=== PATIENT | female | born 1975 | race African-American/Black ===

== ENCOUNTER 2023-09-01 19:03 | Emergency (ER) | payer OTHER, SELFPAY ==
[2023-09-01 19:15] VITALS: BP 107/66
[2023-09-01 21:04] LABS: Glucose - Point of Care 365 mg/dl (70-99)
--- NOTE | 2023-09-01 21:07 | ED.GENMED ---
History of Present Illness
General
Chief Complaint: Ear Problem
Source: patient
Exam Limitations: none
Time Seen by Provider: 09/01/23 20:43
Travel History
Have you had any contact with someone who has COVID-19?: No
Do you have any symptoms of coronavirus? Fever > 100 degrees, chills, cough, shortness of breath, sore throat, loss of taste or smell, muscle aches, or headache?: No
History of Present Illness
History of Present Illness:
47-year-old female insulin-dependent diabetic with history of CVA on Plavix presents with persistent right ear swelling and pain that started about 5 days ago. She has been on Augmentin for 4 days. No fever. She also notes chest congestion. She
occasionally notes drainage out of the right ear. No significant headache.
Past History
Past History
ED Past Medical History: CHF, HTN, Hypercholesterolemia, NIDDM and Other (Guillian-barre, blind right eye)
ED Past Surgical History: Cardiac (CABG in 1981)
Patient has exhibited threatening behavior?: No
Social History
Tobacco: Other
Alcohol: Occasional
Drug: Other
Personal: Other
Living: with family
Employment: Other
Family History
Family History: Other
Phy Exam
Physical Exam
Physical Exam:
General: Well-appearing female no acute respiratory distress
HEENT: Normocephalic outer ear quite swollen on the right side she is tender in the posterior auricular as well as the preauricular space. No trismus or drooling. Left ear within normal limits. No adenopathy.
Heart: Regular rate and rhythm no murmurs
Lungs: Clear to auscultation bilaterally no wheezing
Ext: NO cyanosis or edema
SKin: Erythema, induration noted of right outer ear and subtly over posterior ear.
Course
Orders/Labs/Results
Orders:
Orders
09/01/23 21:09
CT Head W/o Iv Contrast Urgent
Comment:
Reason For Exam: swelling to right ear
09/01/23 21:16
COVID-19 Antigen Urgent
Source: Nasal Swab
Complete Blood Count/With Diff Urgent
Influenza A+B Rapid Molecular Urgent
ROGER Source: Nasal Swab
Specimen Description:
09/01/23 21:19
CMP [Comprehensive Metabolic Panel] Urgent
09/01/23 23:01
Ciprofloxacin HCl [Cipro] 1 dropperett OTIC NOW STA
Ciprofloxacin HCl [Cipro] 500 mg PO NOW STA
Abnormal Lab Results
09/01/23 09/01/23 09/01/23
21:03 21:16 21:19
WBC 20.9 H 10^3/uL
(4.8-10.8)
RBC 3.42 L 10^6/uL
(4.20-5.40)
Hgb 8.4 L g/dL
(12.0-16.0)
Hct 25.8 L %
(37.0-47.0)
MCV 75.4 L fL
(81.0-99.0)
MCH 24.6 L pg
(27.0-31.0)
MCHC 32.6 L g/dL
(33.0-37.0)
RDW 15.9 H %
(11.5-14.5)
Plt Count 560 H 10^3/uL
(130-400)
Abs Immat Gran (auto) 0.4 H 10^3/uL
(0-0.05)
Absolute Neuts (auto) 17.2 H 10^3/uL
(1.4-6.5)
Absolute Monos (auto) 1.5 H 10^3/uL
(0.1-0.6)
Immature Gran % 1.8 H %
(0-0.5)
Neutrophils % 82.2 H %
(42.2-75.2)
Lymphocytes % 8.1 L %
(20.5-51.1)
Sodium 134 L mmol/L
(135-145)
BUN 43 H mg/dl
(7-17)
Creatinine 2.5 H mg/dL
(0.6-1.0)
Glucose 380 H mg/dl
(70-99)
Alkaline Phosphatase 215 H U/L
(38-126)
Albumin 3.1 L g/dl
(3.5-5.0)
POC Glucose 365 H mg/dl
(70-99)
09/01/23 21:16
09/01/23 21:19
Vital Signs
Initial and Last Documented VS:
Initial Vital Signs
Temp Pulse Resp BP Pulse Ox
98.1 F 98 19 107/66 100
09/01/23 19:15 09/01/23 19:15 09/01/23 19:15 09/01/23 19:15 09/01/23 19:15
Last Documented Vital Signs
Temp Pulse Resp BP Pulse Ox
98.1 F 98 19 107/66 100
09/01/23 19:15 09/01/23 19:15 09/01/23 19:15 09/01/23 19:15 09/01/23 19:15
MDM/Problems Addressed
Differential Diagnosis Includes:
Outer ear infection. Patient is insulin-dependent diabetic. Fingerstick blood sugar is 365 here. She is poorly controlled. She is not responding well to oral antibiotics. Question possible Pseudomonas involvement. Will check labs and CT.
*Critical Care Note
Total Time (30-74mins, 75-104mins- exclusive of procedures): Not Applicable
Update Note
Update Note:
Labs with significant findings including leukocytosis of 20.9 with a left shift. She has acute kidney injury with a creatinine of 2.5. Recommend patient stay in the hospital for multiple reasons cellulitis of right ear despite oral antibiotics in
the setting of poorly controlled diabetic. CT scan was ordered which showed soft tissue swelling and no fluid collection. Patient wishes not to stay in the hospital. Long discussion was had with patient. Return precautions were given. She
declined admission at this point.
ED Attending Note
-
Portions of this chart may have been created with voice recognition software.� Occasional wrong word or��sound alike� substitutions may have occurred due to the inherent limitations of voice recognition software.
Discharge Plan
Departure
Patient Disposition: Home (Routine Discharge)
Date of Disposition: 09/01/23
Time of Disposition: 23:31
Patient with high blood pressure during this ER visit?: No
Discharge Problem:
Cellulitis, Acute Otitis Externa
Instructions: Outer Ear Infection (DC)
Prescriptions:
New
ciprofloxacin HCl [Cipro] 500 mg tablet
500 mg PO BID Qty: 14 0RF
Cipro HC 0.2-1 % drops,suspension
3 drp otic (ear) BID 7 Days Qty: 10 0RF
No Action
insulin glargine [Lantus U-100 Insulin] 100 unit/mL Solution
18 - 20 unit SC HS
insulin lispro 100 unit/mL Insulin Pen
4 unit SC AC
omega 5-rqc-pru-fish oil 900-1,400 mg Capsule,Delayed Release(Dr/Ec)
1 cap PO DAILY
dapagliflozin propanediol [Farxiga] 10 mg Tablet
10 mg PO DAILY
furosemide [Lasix] 40 mg tablet
40 mg PO DAILY
atorvastatin 80 mg Tablet
80 mg PO QPM Qty: 30 0RF
clopidogrel 75 mg Tablet
75 mg PO DAILY Qty: 30 0RF
aspirin 81 mg Tablet,Delayed Release (Dr/Ec)
81 mg PO DAILY Qty: 30 0RF
Referrals:
Fitz Daniel DO [Family Provider] -
Activity Restrictions/Additional Instructions:
Use antibiotics as directed. Use drops twice a day. Please return here for increasing pain swelling fever vomiting or other concerning findings. Follow-up with family doctor otherwise
Interventions
Interventions:
*Risk Screen - Suicide Last Done: 09/01/23 19:15
*General Assessment Last Done: 09/01/23 19:15
*Neglect/Abuse Screening Last Done: 09/01/23 19:15
ED- Fall Risk Assessment Last Done: 09/01/23 20:15
*ED COVID-19 Vaccine History Last Done: 09/01/23 19:15
[2023-09-01 21:36] LABS: % Basophils 0.3 % (0-2); % Eosinophils 0.7 % (0-6); % Immature Granulocytes 1.8 % (0-0.5); % Lymphocytes 8.1 % (20.5-51.1); % Monocytes 6.9 % (1.7-9.3); % Neutrophils 82.2 % (42.2-75.2); Absolute Basophils 0.1 10^3/uL (0-0.2); Absolute Eosinophils 0.2 10^3/uL (0-0.7); Absolute Immature Granulocytes 0.4 10^3/uL (0-0.05); Absolute Lymphocytes 1.7 10^3/uL (1.2-3.4); Absolute Monocytes 1.5 10^3/uL (0.1-0.6); Absolute Neutrophils 17.2 10^3/uL (1.4-6.5); Hematocrit 25.8 % (37.0-47.0); Hemoglobin 8.4 g/dL (12.0-16.0); Mean Corp Hgb Conc. 32.6 g/dL (33.0-37.0); Mean Corpuscular Hgb 24.6 pg (27.0-31.0); Mean Corpuscular Volume 75.4 fL (81.0-99.0); Mean Platelet Volume 9.2 fL (7.4-10.4); Nucleated Red Blood Cells % 0.1 %; Platelet Count 560 10^3/uL (130-400); Red Blood Cell Count 3.42 10^6/uL (4.20-5.40); Red Cell Dist. Width 15.9 % (11.5-14.5); White Blood Cell Count 20.9 10^3/uL (4.8-10.8)
[2023-09-01 21:51] LABS: COVID-19 Antigen Negative (Negative)
[2023-09-01 21:54] LABS: ALT (SGPT) < 10 U/L (0-35); AST (SGOT) 14 U/L (14-36); Albumin 3.1 g/dl (3.5-5.0); Alkaline Phosphatase 215 U/L (38-126); Blood Urea Nitrogen 43 mg/dl (7-17); Carbon Dioxide 22 mmol/L (22-30); Chloride 101 mmol/L (98-107); Glucose 380 mg/dl (70-99); Potassium 4.8 mmol/L (3.5-5.1); Sodium 134 mmol/L (135-145); Total Bilirubin 0.9 mg/dl (0.2-1.3); Total Protein 7.4 g/dl (6.3-8.2); eGFR 23.29
[2023-09-01] MEDS: CIPRO 500 MG PO (23:09)
[2023-09-01] MEDS: CIPRO 1 DROPPERETT OTIC (23:10)
== END 2023-09-01 23:40 | disposition home or self-care (01) ==
LOC: EMR 19:03
PROVIDERS: Physician Assistant; EMERGENCY PHYSICIAN Emergency Medicine; FAMILY PHYSICIAN Internal Medicine
DX: H60.11 Cellulitis of right external ear (principal); H60.501 Unspecified acute noninfective otitis externa, right ear; E11.65 Type 2 diabetes mellitus with hyperglycemia; N17.9 Acute kidney failure, unspecified; Z86.73 Personal history of transient ischemic attack (TIA), and cerebral infarction without residual deficits
CPT/HCPCS: 99284; 70450; 80053; 82962; 85025; 87502; 87811

== ENCOUNTER 2023-12-06 03:31 | Inpatient (IN) | payer OTHER, SELFPAY ==
[2023-12-05 23:52] VITALS: BMI 28.2
[2023-12-05 23:54] VITALS: BP 156/59
[2023-12-06] VITALS (10 sets, daily range): BP systolic 124–146; BP diastolic 53–74; PULSE 100; O2SAT 99; BMI 29.8
--- NOTE | 2023-12-06 00:34 | ED.GENMED ---
History of Present Illness
General
Chief Complaint: Skin Problem
Time Seen by Provider: 12/06/23 00:18
Travel History
Have you had any contact with someone who has COVID-19?: No
Do you have any symptoms of coronavirus? Fever > 100 degrees, chills, cough, shortness of breath, sore throat, loss of taste or smell, muscle aches, or headache?: No
History of Present Illness
History of Present Illness:
48yoF hx DM, HTN, CHF presenting with right foot wound. Patient reports increased right foot pain and swelling for the past 2-3 days. Patient states she felt like she has had atheletes foot so she has been spraying Lotrimin to bilateral feet for the
past 2 weeks. Patient states while she was in the shower, she was scrubbing her foot with a loofah when wound opened up on her right 5th toe draining foul smelling blood and pus. Patient reports fever. Patient denies chills.
Past History
Past History
ED Past Medical History: CHF, HTN, Hypercholesterolemia, NIDDM and Other (Guillian-barre, blind right eye)
ED Past Surgical History: Cardiac (CABG in 1981)
Patient has exhibited threatening behavior?: No
Social History
Tobacco: Other
Alcohol: Occasional
Drug: Other
Personal: Other
Living: with family
Employment: Other
Family History
Family History: Other
Phy Exam
Physical Exam
Physical Exam:
General: Alert, no acute distress
Head: NCAT
Eyes: clear conjunctiva
Neck: supple
Cardiac: tachycardic, no murmur
Lungs: clear to auscultation bilaterally. No wheezes, rales, or rhonchi. Speaking full unlabored sentences. No respiratory distress.
Abdomen: soft, nondistended nontender. No rebound or guarding.
MSK: swelling, erythema, increased warmth to right distal foot greatest at 3-5 toes. Open wound in between 4/5 toes. No crepitus. Bilateral lower extremity swelling
Skin: warm, dry
Neuro: Alert and oriented x3. no focal deficits
Course
Orders/Labs/Results
Orders:
Orders
12/06/23 00:30
Toes 2 Views, Right [CR Toe(s) Min 2 Vw Right] Urgent
Comment:
Reason For Exam: pain swelling erythema discharge 4/5 toes
12/06/23 00:32
0.9% Sodium Chloride 500 ml [Nss] 500 ml IV BOLUS
12/06/23 00:51
CMP [Comprehensive Metabolic Panel] Urgent
Blood Culture Urgent
ROGER Source: Blood/Venous
Specimen Description:
12/06/23 00:52
C-Reactive Protein Urgent
CBC/With Diff [Complete Blood Count/With Diff] Urgent
Lactic Acid Urgent
Sed Rate [Erythrocyte Sed Rate] Urgent
12/06/23 01:33
Piperacillin/Tazo 4.5 Gram [Zosyn] 4.5 gram in 100 ml IV NOW
12/06/23 01:35
Vancomycin 1 Gram/200 ml [Vancocin] 1 gram in 200 ml IV ONCE
12/06/23 01:36
0.9% Sodium Chloride 1000 ml [Nss] 1,000 ml IV BOLUS
Abnormal Lab Results
12/06/23 12/06/23
00:51 00:52
WBC 24.2 H 10^3/uL
(4.8-10.8)
RBC 3.95 L 10^6/uL
(4.20-5.40)
Hgb 8.7 L g/dL
(12.0-16.0)
Hct 28.1 L %
(37.0-47.0)
MCV 71.1 L fL
(81.0-99.0)
MCH 22.0 L pg
(27.0-31.0)
MCHC 31.0 L g/dL
(33.0-37.0)
RDW 16.7 H %
(11.5-14.5)
Abs Immat Gran (auto) 0.2 H 10^3/uL
(0-0.05)
Absolute Neuts (auto) 21.7 H 10^3/uL
(1.4-6.5)
Absolute Lymphs (auto) 0.8 L 10^3/uL
(1.2-3.4)
Absolute Monos (auto) 1.4 H 10^3/uL
(0.1-0.6)
Immature Gran % 0.8 H %
(0-0.5)
Neutrophils % 89.6 H %
(42.2-75.2)
Lymphocytes % 3.3 L %
(20.5-51.1)
ESR 105 H mm/hour
(0-20)
Sodium 127 L mmol/L
(135-145)
Carbon Dioxide 18 L mmol/L
(22-30)
BUN 73 H mg/dl
(7-17)
Creatinine 2.5 H mg/dL
(0.6-1.0)
Glucose 344 H mg/dl
(70-99)
Alkaline Phosphatase 288 H U/L
(38-126)
C-Reactive Protein 223.70 H mg/L
(0.0-10.00)
12/06/23 00:52
12/06/23 00:51
Vital Signs
Initial and Last Documented VS:
Initial Vital Signs
Temp Pulse Resp BP Pulse Ox
99.1 F 117 20 156/59 100
12/05/23 23:54 12/05/23 23:54 12/05/23 23:54 12/05/23 23:54 12/05/23 23:54
Last Documented Vital Signs
Temp Pulse Resp BP Pulse Ox
99.1 F 101 16 139/61 100
12/06/23 01:58 12/06/23 01:58 12/06/23 01:58 12/06/23 01:58 12/06/23 01:58
MDM/Problems Addressed
MDM/Problems Addressed:
Patient presents to the Emergency Department with right foot wound
Number and Complexity of Problems Addressed at the Encounter
� Chronic conditions affecting care: DM, HTN
� Acute Exacerbation and/or Progression of Chronic Illness:
� Differential Diagnosis includes: cellulitis, osteomyelitis, DKA
Amount and/or Complexity of Data to be Reviewed and Analyzed
� I performed an independent evaluation of and my interpretation is:
EKG:
CT:
Xrays:
Laboratory Studies: leukocytosis with markedly elevated inflammatory markers. Hyperglycemia with glucose 344. Normal anion gap, not in DKA.
Other:
� Review of other/old records reveals:
� Clinical information was obtained by an independent historian:
� Prescriptions/Medications Considered but not given:
� Further testing considered but not performed:
Risk of Complications and/or Morbidity or Mortality of Patient Management
� Social Determinants of health affecting care:
� Discussion with other providers (PCP, Hospitalists, Consultants, etc):
� Escalation of care including admission/observation vs risk of discharge considered: 48yoF presenting with right foot wound. Patient states pain started 2-3 days ago. Patient noticed wound to right 4/5 toes starting tonight draining blood and pus.
Patient reports fevers. Patient states she has not been seen by podiatry since she moved here 1.5 years ago. Concern for diabetic foot wound, started vancomycin and zosyn. Discussed with hospitalist who accepts for admission
*Critical Care Note
Total Time (30-74mins, 75-104mins- exclusive of procedures): Not Applicable
ED Attending Note
-
Portions of this chart may have been created with voice recognition software.� Occasional wrong word or��sound alike� substitutions may have occurred due to the inherent limitations of voice recognition software.
Discharge Plan
Departure
Patient Disposition: Admit
Date of Disposition: 12/06/23
Time of Disposition: 02:23
Presentation/result/management discussed w/ accepting MD/DO: Hospitalist
Patient with high blood pressure during this ER visit?: Yes
Discharge Problem:
Diabetic foot infection
Prescriptions:
No Action
insulin glargine [Lantus U-100 Insulin] 100 unit/mL Solution
18 - 20 unit SC HS
insulin lispro 100 unit/mL Insulin Pen
4 unit SC AC
Rx Instructions:
pt reports sliding scale
omega 1-pye-xpw-fish oil 900-1,400 mg Capsule,Delayed Release(Dr/Ec)
1 cap PO DAILY
atorvastatin 80 mg Tablet
80 mg PO QPM Qty: 30 0RF
clopidogrel 75 mg Tablet
75 mg PO DAILY Qty: 30 0RF
aspirin 81 mg Tablet,Delayed Release (Dr/Ec)
81 mg PO DAILY Qty: 30 0RF
Referrals:
Fitz Daniel DO [Family Provider] -
Interventions
Interventions:
*Risk Screen - Suicide Last Done: 12/05/23 23:54
*General Assessment Last Done: 12/05/23 23:54
*Neglect/Abuse Screening Last Done: 12/05/23 23:54
*ED COVID-19 Vaccine History Last Done: 12/06/23 01:30
ED-Skin Assessment Last Done: 12/06/23 01:31
Discharge Date and Time
Print Language: IRISH
[2023-12-06 01:04] LABS: % Basophils 0.3 % (0-2); % Eosinophils 0.1 % (0-6); % Immature Granulocytes 0.8 % (0-0.5); % Lymphocytes 3.3 % (20.5-51.1); % Monocytes 5.9 % (1.7-9.3); % Neutrophils 89.6 % (42.2-75.2); Absolute Basophils 0.1 10^3/uL (0-0.2); Absolute Immature Granulocytes 0.2 10^3/uL (0-0.05); Absolute Lymphocytes 0.8 10^3/uL (1.2-3.4); Absolute Monocytes 1.4 10^3/uL (0.1-0.6); Absolute Neutrophils 21.7 10^3/uL (1.4-6.5); Hematocrit 28.1 % (37.0-47.0); Hemoglobin 8.7 g/dL (12.0-16.0); Mean Corpuscular Volume 71.1 fL (81.0-99.0); Mean Platelet Volume 10.1 fL (7.4-10.4); Nucleated Red Blood Cells % 0 %; Platelet Count 366 10^3/uL (130-400); Red Blood Cell Count 3.95 10^6/uL (4.20-5.40); Red Cell Dist. Width 16.7 % (11.5-14.5); White Blood Cell Count 24.2 10^3/uL (4.8-10.8)
[2023-12-06] MEDS: NSS 500 IV (01:10)
[2023-12-06 01:19] LABS: Lactic Acid 1.2 mmol/L (0.7-2.0)
[2023-12-06 01:20] LABS: ALT (SGPT) 23 U/L (0-35); AST (SGOT) 31 U/L (14-36); Albumin 3.6 g/dl (3.5-5.0); Alkaline Phosphatase 288 U/L (38-126); Blood Urea Nitrogen 73 mg/dl (7-17); Calcium 9.5 mg/dl (8.4-10.2); Carbon Dioxide 18 mmol/L (22-30); Chloride 98 mmol/L (98-107); Glucose 344 mg/dl (70-99); Sodium 127 mmol/L (135-145); Total Bilirubin 0.6 mg/dl (0.2-1.3); Total Protein 7.3 g/dl (6.3-8.2); eGFR 23.14
[2023-12-06 01:27] LABS: Erythrocyte Sed Rate 105 mm/hour (0-20)
[2023-12-06] MEDS: ZOSYN 100 IV (01:39)
[2023-12-06] MEDS: NSS 1000 IV ×2 (01:55→05:35)
[2023-12-06] MEDS: VANCOCIN 200 IV (03:01)
--- NOTE | 2023-12-06 03:16 | HPS.HSE ---
Family Physician
-
Family Physician: Fitz Daniel
Chief Complaint
-
R Foot Pain
History of Present Illness
Patient is a 48y F with PMH significant for DM-II, hypertension and prior CVAs who presents to ED complaining of R foot pain and malodorous discharge. Patient states that she developed burning / itching sensation in both feet about 2 weeks ago.
She felt this was athlete's foot and started to use Lotrimin spray without significant improvement. For the past 2 days, she noted increased pain, swelling and redness in the R foot in particular. She states that she has had some chills and felt
generally poor in that same time frame.
This evening, she was in the shower and scrubbing the R foot with a loofah when she noted the skin peeling from her small toe and appreciated malodorous discharge.
Patient presented to the ED for further evaluation.
Medical History
Past Medical History
Past Medical History: Reports Other
Additional Past Medical History:
ASCVD (CVA x 2)
Hypertension
DM-II with Retinopathy, Nephropathy and Neuropathy
Chronic HFpEF
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
Dysconjugate Gaze / Vision Impairment
Past Surgical History: Reports Other
Additional Past Surgical History:
Eye surgery
Open heart surgery as a child
Social History
Tobacco: Non-smoker
Alcohol: Former
Drug: None
Personal: Single
Living: With Family
Employment: Disabled
Family History
Family History: CAD, Diabetes and Hypertension
Allergies / Home Medications
Allergies reflects when Allergies were last updated in [employer]
Home Medications with original date entered in [employer]
Allergy/Medication List:
Allergies
Allergy/AdvReac Type Severity Reaction Status Date / Time
latex Allergy Hives Verified 09/01/23 19:15
soap Allergy Rash Verified 02/27/24 19:15
Home Medications
insulin glargine 100 unit/mL subcutaneous solution (Lantus U-100 Insulin) 18 - 20 unit SC HS Diabetes 04/06/23
insulin lispro 100 unit/mL subcutaneous pen 4 unit SC AC Diabetes 04/06/23
omega 0-kdn-rug-fish oil 900 mg-1,400 mg capsule,delayed release 1 cap PO DAILY Supplement 04/06/23
aspirin 81 mg tablet,delayed release 81 mg PO DAILY Blood Clot Prevention/Tx #30 tabs 05/04/23
atorvastatin 80 mg tablet 80 mg PO QPM #30 tabs 05/04/23
clopidogrel 75 mg tablet 75 mg PO DAILY #30 tabs 05/04/23
Review of Systems
-
History Source: Patient
A 12 point ROS was completed and negative except as noted: Yes
Constitutional: Reports Fatigue and Chills; Denies Fever
EENT: Denies Sore Throat
Respiratory: Denies Cough or Trouble Breathing
Cardiac: Denies Chest Pain or Palpitations
Abdomen/GI: Reports Anorexia; Denies Abdominal Pain, Nausea, Vomiting or Diarrhea
: Denies Dysuria, Frequency or Flank Pain
Musculoskeletal: Reports Joint Pain, Joint Swelling and Edema
Skin: Reports Itching and Other (Redness / skin peeling)
Neurological: Denies Dizzy or Headache
Psych: Denies Depression or Anxiety
Physical Exam
Vital Signs
Vital Signs
Temp Pulse Resp BP Pulse Ox
99.1 F 101 16 139/61 100
12/06/23 01:58 12/06/23 01:58 12/06/23 01:58 12/06/23 01:58 12/06/23 01:58
Physical Exam
General: Other (48y F in no acute distress.)
HEENT: Moist mucous membranes and Other (Dysconjugate gaze.)
Respiratory: Clear; No Wheezes, Rales or Rhonchi
Cardiac: S1/S2, Regular Rhythm and Murmur (II/ MANNY)
GI: Soft, Non Tender, Non Distended and Normal Bowel Sounds
Musculoskeletal: No Clubbing and Other (1-2+ pitting edema R > L foot. R foot with erythema and mild tenderness.)
Skin: Other (R 5th toe degloved with skin peeling from majority of the digit - focused over the medial aspect. Plantar surface with punctate wound at base of 5th MT without drainage or apparent foreign body.)
Neuro: AO x 3
Laboratory Results
-
12/06/23 00:52
12/06/23 00:51
Laboratory Results
Lactic Acid 1.2 mmol/L (0.7-2.0) 12/06/23 00:52
Total Bilirubin 0.6 mg/dl (0.2-1.3) 12/06/23 00:51
AST 31 U/L (14-36) 12/06/23 00:51
ALT 23 U/L (0-35) 12/06/23 00:51
Alkaline Phosphatase 288 U/L (38-126) H 12/06/23 00:51
Impression/Plan
-
A/P: Patient is a 48y F with PMH significant for HTN, DM-II, multiple prior CVAs and valvular heart disease who presents to ED complaining of pain, swelling and skin changes of the R foot / 5th toe.
Diabetic Foot Infection Right Foot
Sepsis secondary to the above
- Admit for further evaluation and treatment.
- Patient presents with leukocytosis and tachycardia with evident R foot infection.
- R 5th toe essentially degloved. X-ray without evident bony involvement - would check MR for further evaluation.
- Note significant elevations in ESR / CRP which may support osteomyelitis.
- IV abx with Vanco / Zosyn for now.
- Podiatry evaluation for further recommendations.
- Follow for clinical improvement.
DM-II
Mild / Pseudohyponatremia
- Stable. Continue basal insulin and SSI as needed.
- Update A1C.
- Corrected Na level is 131. Follow for improvement with glycemic control, IVFs, etc.
CKD III
- Stable. Renal function is at / near known baseline.
- Follow for changes.
ASCVD
- Multiple prior CVAs. LINQ recorder recommended; however, patient declined.
- Continue daily ASA. Will hold Plavix acutely in the event that surgical intervention is needed.
- Continue statin, BP control, etc.
- Monitor on telemetry for now.
- Follow for any new symptoms / complaints.
Chronic HFpEF
- Stable. Patient is not maintained on chronic diuretic regimen.
- Follow daily weights, I/Os, etc.
DVT Prophylaxis: Lovenox
Code Status: Full
[2023-12-06 04:37] LABS: Glucose - Point of Care 381 mg/dl (70-99)
[2023-12-06] MEDS: NOVOLOG FLEXPEN 7 UNITS SC (05:42)
[2023-12-06] MEDS: VANCOCIN HCL 500 MG 100 IV (05:56)
[2023-12-06 07:27] LABS: Glucose - Point of Care 300 mg/dl (70-99)
--- NOTE | 2023-12-06 07:45 | W.PN.HOSP.TC ---
Addendum entered and electronically signed by Jimmy Mckeon MD 12/06/23 12:36:
call from Dr. Casey.
requesting Vasc Surg evaluation. NPO after midnight
will decrease tonight's Lantus dose and start low dose D51/2 for the morning
Original Note:
Today's Communication/Plan
-
empiric Zosyn/Vanco
Podiatry consult
foot MRI
Assessment / Plan
Assessment / Plan
A/P: Patient is a 48y F with PMH significant for HTN, DM-II, multiple prior CVAs and valvular heart disease who presents to ED complaining of pain, swelling and skin changes of the R foot / 5th toe.
Diabetic Foot Infection Right Foot
with cellulitic changes up to mid palomo
Sepsis secondary to the above
- Patient presents with leukocytosis and tachycardia with evident R foot infection.
WBC 24.2k-->pending
- R 5th toe essentially degloved. X-ray without evident bony involvement - would check MR for further evaluation.
- Note significant elevations in ESR 105 / CRP 223.7 which may support osteomyelitis.
- IV abx with Vanco / Zosyn for now.
- Podiatry evaluation for further recommendations.
- Follow for clinical improvement. Consider ID consult pending clinical progression
DM-I
onset age 12
Mild / Pseudohyponatremia 127
- Stable. Continue basal insulin and SSI as needed.
- Update A1C pending.
- Corrected Na level is 131. Follow for improvement with glycemic control, IVFs, etc.
Will order diet, unlikely surgical intervention today
CKD III
- Stable. Renal function is at / near known baseline.
- Follow for changes.
BUN/Creat 73/2.5
ASCVD
- Multiple prior CVAs. LINQ recorder recommended; however, patient declined.
- Continue daily ASA. Will hold Plavix acutely in the event that surgical intervention is needed.
- Continue statin, BP control, etc.
- Monitor on telemetry for now.
- Follow for any new symptoms / complaints.
Chronic HFpEF
- Stable. Patient is not maintained on chronic diuretic regimen.
- Follow daily weights, I/Os, etc.
DVT Prophylaxis: Lovenox
Code Status: Full
Anticipated Discharge: > 48 hours
Subjective/Interval History
-
Date of Service: December 06, 2023
Pt very concerned about plans for toe/foot
Objective Data
-
Labs:
Laboratory Results
12/06/23 12/06/23 12/06/23
00:51 00:52 06:00
WBC 24.2 H Pending
Hgb 8.7 L Pending
Hct 28.1 L Pending
Plt Count 366 Pending
Sodium 127 L Pending
Potassium 5.0 Pending
Chloride 98 Pending
Carbon Dioxide 18 L Pending
BUN 73 H Pending
Creatinine 2.5 H Pending
Glucose 344 H Pending
Calcium 9.5 Pending
Total Bilirubin 0.6
AST 31
ALT 23
Alkaline Phosphatase 288 H
Vital Signs:
Vital Signs
Temp Pulse Resp BP Pulse Ox
98.8 F 97 20 146/74 100
12/06/23 05:02 12/06/23 07:29 12/06/23 07:29 12/06/23 07:29 12/06/23 07:29
Review of Systems
-
History Source: Patient and Coordinated Provider
Constitutional: Denies Fever
EENT: Reports No Symptoms Reported
Respiratory: Reports No Symptoms; Denies Cough or Trouble Breathing
Abdomen/GI: Reports No Symptoms
Genitourinary: Reports No Symptoms
Musculoskeletal: Reports Joint Pain (rt 5th toe pain)
Neuro: Reports Numbness (paresthesia in bilateral feet); Denies Dizzy or Weakness
Physical Exam
-
General: Well Developed, Well Nourished and No Apparent Distress
HEENT: Normocephalic, Atraumatic and Moist Mucous Membranes
Respiratory: Clear to Auscultation; Negative Wheezes, Rales or Rhonchi
Cardiac: Regular Rhythm and S1/S2
GI: Soft, Nontender and Nondistended
Skin: Warm (rt leg from ~mid palomo distally) and Rash (slightly hyperremic distal leg)
Neuro: Awake, Alert and Oriented
[2023-12-06] MEDS: NOVOLOG FLEXPEN-MODERATE RESISTANCE 7 UNITS SC (08:03)
[2023-12-06 08:18] LABS: Hematocrit 24.4 % (37.0-47.0); Mean Corp Hgb Conc. 32.8 g/dL (33.0-37.0); Mean Corpuscular Hgb 22.3 pg (27.0-31.0); Mean Corpuscular Volume 68.2 fL (81.0-99.0); Mean Platelet Volume 9.6 fL (7.4-10.4); Platelet Count 319 10^3/uL (130-400); Red Blood Cell Count 3.58 10^6/uL (4.20-5.40); Red Cell Dist. Width 16.8 % (11.5-14.5); White Blood Cell Count 19.7 10^3/uL (4.8-10.8)
[2023-12-06 08:38] LABS: Blood Urea Nitrogen 69 mg/dl (7-17); Calcium 8.6 mg/dl (8.4-10.2); Carbon Dioxide 18 mmol/L (22-30); Chloride 101 mmol/L (98-107); Estimated Creatinine Clearance 27 ml/min; Glucose 194 mg/dl (70-99); Potassium 4.4 mmol/L (3.5-5.1); Sodium 129 mmol/L (135-145)
--- NOTE | 2023-12-06 08:47 | PHA.VAN.IN ---
Assessment
- Assessment
Renal Function: Appears similar to baseline
AUC Dosing Plan
- Empiric Dosing
Initial / Loading Dose: 1500 mg - as a split loading dose ( ~21 mg/kg)
Plan
- Plan
Maintenance Regimen: dose by random level
Monitoring: random level AM 12/07/23
Pharmacokinetics Vancomycin I
- -
Patient Age: 48
Patient Sex: Female
Vancomycin Day #: 1
Indication: Diabetic Foot
Requesting Provider: Oscar
Pertinent Antimicrobial Allergies:
latex
Height / Weight:
Height 5 ft 3 in
Actual Weight 72.3 kg
Pertinent Past Medical History: DM w/ nephropathy, CKD III
- Vital Signs / Lab Results
Temp Pulse Resp BP Pulse Ox
98.8 F 97 20 146/74 100
12/06/23 05:02 12/06/23 07:29 12/06/23 07:29 12/06/23 07:29 12/06/23 07:29
Lab Results - Hematology
12/06/23 12/06/23
00:52 08:12
WBC 24.2 H 19.7 H
Lab Results - Chemistry
12/06/23 12/06/23
00:51 08:12
BUN 73 H 69 H
Creatinine 2.5 H 2.4 H
Estimated Creat Clear 27
Albumin 3.6
12/06/23
00:52
Lactic Acid 1.2
[2023-12-06 09:15] LABS: TSH Reflex To Free T4 3.76 uIU/ml (0.47-4.68)
[2023-12-06] MEDS: ASPIR LOW (ENTERIC COATED) 81 MG PO (09:41)
[2023-12-06] MEDS: ZOSYN 50 IV ×3 (09:44→21:52)
[2023-12-06 10:17] LABS: Glycohemoglobin (HgbA1c) 9.2 % (4.0-5.6)
[2023-12-06 12:02] LABS: Glucose - Point of Care 99 mg/dl (70-99)
[2023-12-06] MEDS: NOVOLOG FLEXPEN-MODERATE RESISTANCE SC ×2 (12:12→17:49)
--- NOTE | 2023-12-06 12:36 | W.CS.POD ---
Consult Summary - Podiatry
-
Patient is a 48y F with PMH significant for HTN, DM-II, multiple prior CVAs and valvular heart disease who presents to ED complaining of pain, swelling and skin changes of the R foot / 5th toe. She sates that she trimmed her callus on the bottom
her Rt foot under the 5th toe and developed some skin peeling and noticed redness, infection . she presented to the hosp . She is in no acute distress, no chest pain, no SOB, WBC count improved on IV abx,
Reviewed PMH, meds and allergies
Exam : Rt foot edematous, erythematous, Rt 5th toe with dusky discoloration, degloving skin, presence of foul odor. No signs of any crepitus felt in the Rt foot/5th toe, no signs of any deep abscess felt.
Xray no osteomyelitic changes.
WBC count improved from 24>19 .
A/P: Rt foot cellultis
Rt 5th toe gangrene
Diabetic small vessel disease
Plan ; Cont IV abx.
Ordered IVANIA'S and toe indices
Pending vascular surgery evaluation about possible healing potential after amputation
Discussed with patient about 5th toe gangrene possibly form diabetic small vessel disease . no guarantees given to save the toe, patient upset about the condition.
I have told her that we will get vascular surgery evaluation with vascular studies before the surgery, I have answered all her questions the best of my knowledge
Case d/w dr. Fontaine.
Podiatry for possible Rt 5th toe amputation tomorrow
Podiatry will follow
[2023-12-06] MEDS: LOVENOX 40 MG SC (17:22)
[2023-12-06] MEDS: TYLENOL 650 MG PO (17:22)
[2023-12-06] MEDS: LIPITOR 80 MG PO (17:22)
[2023-12-06 17:31] LABS: Glucose - Point of Care 143 mg/dl (70-99)
[2023-12-06] MEDS: NSS IV (17:48)
[2023-12-06 21:35] LABS: Glucose - Point of Care 187 mg/dl (70-99)
[2023-12-06] MEDS: LANTUS 0.100000000000000006 UNITS SC (22:34)
[2023-12-07] VITALS (13 sets, daily range): BP systolic 111–158; BP diastolic 50–62
[2023-12-07] MEDS: D5/0.45%NACL 1000 IV (02:12)
[2023-12-07] MEDS: ZOSYN 50 IV ×2 (02:48→08:40)
[2023-12-07 05:52] LABS: Glucose - Point of Care 198 mg/dl (70-99)
[2023-12-07] MEDS: NOVOLOG FLEXPEN-MODERATE RESISTANCE SC (06:00)
--- NOTE | 2023-12-07 06:36 | PTCARENOTE ---
Pt aaox3 able to make her needs known.Pt angry and irrritated with care at times. Pt refused IV fluids at first when NPO later agreeable to it. Pt oob with 1 person assist to BR was bladder scanned as needed. Pt also states she doesn't drink much
fluids. Pt was encouraged to drink more PO & was provided with PO liquids as pt was refusing IVF. INVESTIGATOR WELFARE electronic prepress technician made aware of it. Pt was encouarged to void this morning again,bladder scan of 239 at 6am.GEOGRAPHICAL HISTORIAN notified. Pt asking for lasix this morning
and it was not noted on pt home list, pt states she hasn't taken it for week and a half.Pt non complaint with care at times. GEOGRAPHICAL HISTORIAN made aware of all pt complaints & pt aware of am blood work to be done.Plan of care continued.Pt npo from [place]. pt made
aware of jewelry to be taken off for MRI.Pt wants to wait till morning for some of it .
[2023-12-07 07:46] LABS: % Basophils 0.4 % (0-2); % Eosinophils 0.7 % (0-6); % Immature Granulocytes 0.6 % (0-0.5); % Lymphocytes 7.1 % (20.5-51.1); % Monocytes 7.9 % (1.7-9.3); % Neutrophils 83.3 % (42.2-75.2); Absolute Basophils 0.1 10^3/uL (0-0.2); Absolute Eosinophils 0.1 10^3/uL (0-0.7); Absolute Immature Granulocytes 0.1 10^3/uL (0-0.05); Absolute Lymphocytes 1.4 10^3/uL (1.2-3.4); Absolute Monocytes 1.5 10^3/uL (0.1-0.6); Absolute Neutrophils 15.9 10^3/uL (1.4-6.5); Hematocrit 23.2 % (37.0-47.0); Hemoglobin 7.3 g/dL (12.0-16.0); Mean Corp Hgb Conc. 31.5 g/dL (33.0-37.0); Mean Corpuscular Hgb 22.1 pg (27.0-31.0); Mean Corpuscular Volume 70.1 fL (81.0-99.0); Nucleated Red Blood Cells % 0.1 %; Platelet Count 315 10^3/uL (130-400); Red Blood Cell Count 3.31 10^6/uL (4.20-5.40); Red Cell Dist. Width 16.8 % (11.5-14.5); White Blood Cell Count 19.1 10^3/uL (4.8-10.8)
--- NOTE | 2023-12-07 08:12 | CON.VAS ---
Addendum entered and electronically signed by Memo Whitmore III, MD 12/07/23 13:50:
This patient was seen and examined with NILDA Albright. I agree with the history and physical exam as well as the assessment and plan. I have the following additions:
48-year-old female with multiple medical problems. Poor medical compliance.
Presents with right fifth toe gangrene.
Associated infection
Nonpalpable pedal pulses on the right
I personally reviewed her vascular studies. Her IVANIA on the right is within normal limits however the arterial duplex does demonstrate calcification throughout. TBI mildly reduced at 0.6. Arterial duplex examination reveals elevated velocities in
the proximal superficial femoral artery consistent with stenosis.
She has chronic kidney disease and is in the midst of acute kidney injury. Creatinine today 3.0.
She would benefit from a right lower extremity arteriogram and possible endovascular intervention. Will hold off for now given acute kidney injury on a background of CKD. Will consult with nephrology regarding timing of arteriogram and
intervention, ideally on this admission and perhaps later this week. Podiatry following for her toe infection.
Signed:
Memo Whitmore III, MD
[facility] Vascular Surgery
[phone] ([id number])
Original Note:
Consultation
Consultation Request
Performing Provider: Myranda
Reason for Consultation: Right fifth toe gangrene
Medical History
-
Chief Complaint: Right fifth toe discoloration
History of Present Illness:
48-year-old female with past medical history diabetes type 2, CAD(CABG 1981), chronic kidney disease, CVA x2, hypertension, retinopathy, CHF admitted through the emergency room yesterday for right fifth toe gangrene workup. Patient states the right
fifth toe has been discolored for close to a week. She states the other day she was in the shower and scrubbed with a loofah when she noticed the skin peeling and a foul odor. She denies prior wound healing issues. She states her diabetes has
been very well-controlled, with all blood sugars under 200. She does not see a virtual classroom manager outpatient but is aware that she has kidney disease. Vascular consult for right fifth toe gangrene/PAD evaluation. Patient seen at bedside this a.m. with
Dr. Whitmore.
Right fifth toe is black with peeling skin on the bottom of the foot. It is also draining from an opening at the toe base on the bottom of the foot, malodorous. Denies pain. Bilateral legs from knees to toes with +2 pitting edema. Patient denies
having edema at baseline. Patient seems noncompliant and a bit unaware of current state of health. A1c 9.2. Creatinine 2.4 yesterday 3.0 today. States she is unsure if she has been urinating.
Arterial ultrasounds pending
N.p.o. for toe amputation today with podiatry
Past Medical History
Past Medical History: CAD, CHF, CVA, HTN, IDDM, Renal Failure and Other (Guillian Song� syndrome, vision impairment)
Past Surgical History: Cardiac (CABG 1981) and Other (Eye surgery)
Social History
Tobacco: Non-Smoker
Alcohol: Former
Drug: None
Personal: Single
Living: With Family
Employment: Disabled
Family History
Family History: CAD, Diabetes and Hypertension
Allergies / Home Medications
Allergy/AdvReac Type Severity Reaction Status Date / Time
latex Allergy Hives Verified 09/01/23 19:15
soap Allergy Rash Verified 09/01/23 19:15
�Medication �Instructions �Recorded �Confirmed �Type
insulin glargine 100 unit/mL 18 - 20 unit SC HS Diabetes 04/06/23 12/06/23 History
subcutaneous solution (Lantus
U-100 Insulin)
insulin lispro 100 unit/mL 4 unit SC AC Diabetes 04/06/23 12/06/23 History
subcutaneous pen
omega 9-ymc-eim-fish oil 900 1 cap PO DAILY Supplement 04/06/23 12/06/23 History
mg-1,400 mg capsule,delayed release
aspirin 81 mg tablet,delayed 81 mg PO DAILY Blood Clot 05/04/23 12/06/23 Rx
release Prevention/Tx #30 tabs
atorvastatin 80 mg tablet 80 mg PO QPM #30 tabs 05/04/23 12/06/23 Rx
Review of Systems
-
History Source: Patient
All other systems: Negative unless noted
Constitutional: Reports No Symptoms
EENT: Reports No Symptoms
Respiratory: Reports No Symptoms
Cardiac: Reports No Symptoms
Vascular: Denies Leg Pain / Claudication
Abdomen/GI: Reports No Symptoms
: Reports No Symptoms
Musculoskeletal: Reports Edema
Skin: Reports Other (Right fifth toe discoloration)
Neurological: Reports No Symptoms
Endocrine: Reports No Symptoms
Physical Exam
Vital Signs
Temp Pulse Resp BP Pulse Ox
98.8 F 96 16 134/61 99
12/07/23 07:10 12/07/23 07:10 12/07/23 07:10 12/07/23 07:10 12/07/23 07:10
Lab Results
12/07/23 07:29
Physical Exam
General: No Apparent Distress
HEENT: Normocephalic and Atraumatic
Respiratory: Non Labored Respirations
Cardiac: Negative JVD
GI: Soft and Non Tender
Musculoskeletal: No Clubbing and Edema (+2 pitting edema knees to toes bilaterally)
Skin: Warm, Dry and Other (Right fifth toe gangrene, malodorous drainage, skin peeling)
Neuro: Awake, Alert and Oriented
Psych: Calm
Pulses: Bilateral Dorsalis Pedis: Doppler (Nonpalpable) and Bilateral Posterior Tibial: Doppler (Nonpalpable)
Assessment / Plan
-
48-year-old female with right fifth toe gangrene
Plan:
-Arterial ultrasounds pending, likely angiogram tomorrow
-Toe amputation per podiatry
-Nephrology consult for rising creatinine
-DM management consult
-Local wound care
-Will follow-up with plan after scan is complete
Data Reviewed
-
Labs: Labs Reviewed by me
[2023-12-07 08:23] LABS: Blood Urea Nitrogen 83 mg/dl (7-17); Calcium 8.7 mg/dl (8.4-10.2); Carbon Dioxide 12 mmol/L (22-30); Chloride 102 mmol/L (98-107); Estimated Creatinine Clearance 23 ml/min; Glucose 193 mg/dl (70-99); Potassium 4.9 mmol/L (3.5-5.1); Sodium 127 mmol/L (135-145); eGFR 18.59
[2023-12-07] MEDS: ASPIR LOW (ENTERIC COATED) 81 MG PO (08:40)
--- NOTE | 2023-12-07 09:02 | W.PN.HOSP.TC ---
Today's Communication/Plan
-
Surgery with podiatry today, appreciate cardiology and podiatry
MARYLOU on CKD -- consulted ID and Nephrology, recommendations appreciated
Continue antibiotics
Continue bicarb
Assessment / Plan
Assessment / Plan
Physical Exam
General: Well Developed, Well Nourished and No Apparent Distress
HEENT: Normocephalic, Atraumatic and Moist Mucous Membranes
Respiratory: Clear to Auscultation; Negative Wheezes, Rales or Rhonchi
Cardiac: Regular Rhythm and S1/S2
GI: Soft, Nontender and Nondistended
Skin: Warm (rt leg from ~mid palomo distally) and Rash (slightly hyperremic distal leg)
Neuro: Awake, Alert and Oriented

Assessment/Plan
Patient is a 48y F with PMH significant for HTN, DM-II, multiple prior CVAs and valvular heart disease who presents to ED complaining of pain, swelling and skin changes of the R foot / 5th toe.
Diabetic Foot Infection Right Foot
with cellulitic changes up to mid palomo
Sepsis secondary to the above
- Patient presents with leukocytosis and tachycardia with evident R foot infection.
- R 5th toe essentially degloved. X-ray without evident bony involvement - would check MR for further evaluation.
- Note significant elevations in ESR 105 / CRP 223.7 which may support osteomyelitis.
- IV Zosyn stopped. ID consulted, recommendations appreciated
- Meropenem started. Continue Vancomycin.
- Podiatry evaluation for further recommendations.
- Follow for clinical improvement. Consider ID consult pending clinical progression
- Possible angiogram tomorrow with vascular surgery
- Podiatry to take patient for surgery today
DM-I
onset age 12
Mild / Pseudohyponatremia 127
- Diabetes CONTRACTS ANALYST consulted, recommendations appreciated
- Continue premeal and Long-acting Insulin as ordered
- Continue accuchecks
MARYLOU on CKD III
Anuria
metabolic Acidosis
- Consulted Nephrology on 12/07/23 given worsening renal function, along with acidosis and hyponatremia
- Bicarb ordered
- Avoid nephrotoxins, dose antibiotics renally
ASCVD
- Multiple prior CVAs. LINQ recorder recommended; however, patient declined.
- Continue daily ASA. Will hold Plavix acutely in the event that surgical intervention is needed.
- Continue statin, BP control, etc.
- Monitor on telemetry for now.
- Follow for any new symptoms / complaints.
Aortic Stenosis
Mitral Stenosis
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
Chronic HFpEF
Pulmonary Hypertension
- Stable. Patient is not maintained on chronic diuretic regimen but takes Lasix as needed.
- Follow daily weights, I/Os, etc.
DVT Prophylaxis: Lovenox
Code Status: Full
Anticipated Discharge: > 48 hours
Subjective/Interval History
-
Date of Service: December 07, 2023
Patient was seen and examined. She was going for her renal ultrasound when she was seen. She denied any new significant symptoms when she was seen.
Objective Data
-
Labs:
Laboratory Results
12/07/23
07:29
WBC 19.1 H
Hgb 7.3 L
Hct 23.2 L
Plt Count 315
Sodium 127 L
Potassium 4.9
Chloride 102
Carbon Dioxide 12 L*
BUN 83 H
Creatinine 3.0 H
Glucose 193 H
Calcium 8.7
Vital Signs:
Vital Signs
Temp Pulse Resp BP Pulse Ox
98.8 F 96 16 134/61 99
12/07/23 07:10 12/07/23 07:10 12/07/23 07:10 12/07/23 07:10 12/07/23 07:10
I&O
12/06/23 12/07/23 12/08/23
06:59 06:59 06:59
Intake Total 720 / 720
Balance 720 / 720
--- NOTE | 2023-12-07 09:22 | PN.DE.MGMTRT ---
Insulin Management
- -
12/07/2023: Diabetes Management Consult
48 year old female admitted with Right fifth toe discoloration
PMH: CAD(CABG 1981), CKD, CVA x2, HTN, Retinopathy, CHF and T2DM. A1C 9.2%, Cr 2.4-->3.0 eGFR 18.59, was taking Lantus 18-20 units @ HS and Lispro 4 units AC.
Pt has been off the floor for an extended period of time for tests and procedure and is not available for interview at this time
Currently NPO for toe amputation today with podiatry.
Hospital Diabetes regimen includes: Lantus 10 units and High corrective insulin with meals
Glucose remains elevated, premeal 99 to 300, FBG range 193 to 194.
Will start NovoLog 5 units AC, 1st dose when diet has been resumed after procedure, otherwise, utilize corrective insulin while NPO
Increase Lantus to 15 units @ HS. Rec 1800 karen ADA diet after procedure.
Will follow up with pt tomorrow.
Diabetes History
- -
Type of Diabetes: 2 requiring insulin
Pre-Admission Diabetes Regimen
12/07/23
07:29
Creatinine 3.0 H
Lab Results
Hemoglobin A1c 9.2 % (4.0-5.6) H 12/06/23 08:12
Insulin Pump Settings
IP Diabetes Regimen
12/06/23 12/06/23 12/06/23
12:00 17:30 21:33
Glucose
POC Glucose 99 143 H 187 H
12/07/23 12/07/23
05:51 07:29
Glucose 193 H
POC Glucose 198 H
Meal type: Breakfast
Meal type: Dinner
Amount consumed: 100%
Patient Education
--- NOTE | 2023-12-07 11:02 | PHA.VAN.FU ---
Vancomycin Assessment / Plan
- Assessment
Renal Function: SCR Increasing
WBC's are: Stable
In the past 24 hrs, patient has been: Afebrile
Concomitant Antimicrobials: piperacillin/tazobactam
- Assessment - Therapeutic Drug Monitoring
Random Level: 13 - drawn ~25.5H after split 1500mg initial dose
- Dosing Plan
Dosing by Level: Re-dose today (Vanc 750mg - 10mg/kg)
- Monitoring Plan
Random Level: 12/07 599
- Follow Up
Pharmacy will continue to follow.
Vancomycin Follow UP
- -
Patient Age: 48
Patient Sex: Female
Vancomycin Day #: 2
Indication: Diabetic Foot
Requesting Provider: Oscar
Pertinent Antimicrobial Allergies:
no pertinent antimicrobial allergies
Height / Weight:
Height 5 ft 3 in
Actual Weight 76.912 kg
Pertinent Past Medical History: BMI ~30, DM I, CKD III
- Vital Signs / Lab Results
Temp Pulse Resp BP Pulse Ox
98.8 F 96 16 134/61 99
12/07/23 07:10 12/07/23 07:10 12/07/23 07:10 12/07/23 07:10 12/07/23 07:10
Lab Results - Hematology
12/06/23 12/06/23 12/07/23
00:52 08:12 07:29
WBC 24.2 H 19.7 H 19.1 H
Lab Results - Chemistry
12/06/23 12/06/23 12/07/23
00:51 08:12 07:29
BUN 73 H 69 H 83 H
Creatinine 2.5 H 2.4 H 3.0 H
Estimated Creat Clear 27 23
Albumin 3.6
12/06/23
00:52
Lactic Acid 1.2
Microbiology Results
12/06/23 03:26 Blood Culture - Preliminary
Blood/Venous No Growth in 24 hours- Final report to follow
12/06/23 00:51 Blood Culture - Preliminary
Blood/Venous No Growth in 24 hours- Final report to follow
Therapeutic Drug Monitoring
Random Vancomycin 13.0 ug/ml 12/07/23 07:29
[2023-12-07 11:22] LABS: Osmolality Serum 300 mOsm/kg (275-300)
--- NOTE | 2023-12-07 12:50 | CON.CAR ---
Addendum entered and electronically signed by Timothy Hernandez MD 12/07/23 15:09:
I saw and examined the patient.
The INDUSTRIAL CHEMISTRY TEACHER's note was reviewed and I agree with the note.
Comment: Congenital heart disease of unknown type. She had surgery at age 5 to relieve an obstruction near her aorta or aortic valve. She has had DM since age 12. She heart failure 2022. She has had prior stroke(s). She takes Lasix only
occasionally. Her weight is up but edema is confined to leg with infection. No PND/orthopnea or ARREGUIN. Her echo is abnormal with a small LV cavity with hyperdynamic LV, some /AR, cacific MS, and pulm HTN (60s) and stage II diastolic dysfunction
(although with Dense MAC we could say diastolic function is indeterminate). Of for surgery with care to avoid hypotension and treat as if could be significant given the small LV. After surgery gentle diuresis is reasonable.
Original Note:
Consultation
Consultation Request
Date/Time Consultation Requested: 12/07/2023 12:30
Date/Time Consultation Performed: 12/07/2023 12:50
Requesting Provider: Dr. Castillo
Performing Provider: NILDA Jimenez for Dr. Hernandez
Reason for Consultation: Cardiac risk assessment
Medical History
-
Chief Complaint: Right foot pain
History of Present Illness:
Shea Kent is a 48 year old female (formerly known to Dr. 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
who presented to the emergency department with a chief complaint of right foot pain with associated malodorous discharge. She states approximately 2 weeks ago she thought she developed athlete's foot due to excessive itching and has been using
Lotrimin without significant improvement. Two days prior to arrival she noticed increased pain, swelling, redness, and drainage. She began experiencing chills and feeling unwell. She has been evaluated by both vascular surgery and podiatry. The
recommendation is for right fifth toe amputation. Cardiology has been asked for risk assessment. She is ordered furosemide 40 mg daily but this disrupts her life so she takes it as needed.
Past Medical History
Past Medical History: CHF, CVA, HTN, Hypercholesterolemia, IDDM, IL and Renal Failure (CKD)
Past Surgical History: Cardiac
Social History
Tobacco: Former Smoker
Alcohol: None
Drug: None
Personal: Single
Living: With Family
Employment: Disabled
Family History
Family History: Reviewed & Not Pertinent
Allergies / Home Medications
Allergy/AdvReac Type Severity Reaction Status Date / Time
latex Allergy Hives Verified 09/01/23 19:15
soap Allergy Rash Verified 09/01/23 19:15
�Medication �Instructions �Recorded �Confirmed �Type
insulin glargine 100 unit/mL 18 - 20 unit SC HS Diabetes 04/06/23 12/06/23 History
subcutaneous solution (Lantus
U-100 Insulin)
insulin lispro 100 unit/mL 4 unit SC AC Diabetes 04/06/23 12/06/23 History
subcutaneous pen
omega 7-fzq-ryn-fish oil 900 1 cap PO DAILY Supplement 04/06/23 12/06/23 History
mg-1,400 mg capsule,delayed release
aspirin 81 mg tablet,delayed 81 mg PO DAILY Blood Clot 05/04/23 12/06/23 Rx
release Prevention/Tx #30 tabs
atorvastatin 80 mg tablet 80 mg PO QPM #30 tabs 05/04/23 12/06/23 Rx
Review of Systems
-
History Source: Patient
Constitutional: Fatigue
Cardiac: No Symptoms
Musculoskeletal: Joint Pain, Joint Swelling and Edema
Physical Exam
Vital Signs
Temp Pulse Resp BP Pulse Ox
98.8 F 96 16 134/61 99
12/07/23 07:10 12/07/23 07:10 12/07/23 07:10 12/07/23 07:10 12/07/23 08:30
Lab Results
12/07/23 07:29
12/07/23 07:29
Impression / Plan
-
Cardiac risk assessment - Right 5th toe amputation
-Prior Type II IL, refused outpatient Madeline/Nuc
-Denies chest pain and shortness of breath with
-Update echocardiogram
Sepsis in the setting of right 5th toe infection in a diabetic patient - per primary, amputation as above
HFpEF, acute on chronic
-Volume overloaded on exam
-Furosemide 40 mg IV x1 post op
-Trend daily weight, I/O, and BMP with diuresis
Congenital heart surgery as a child, no records available
Chronic kidney disease with MARYLOU
Anemia, appears chronic, however hemoglobin 7.3 this morning
Moderate aortic regurgitation, update TTE
Type I DM, uncontrolled, Hgba1c 9.6%, per primary
Prior CVA, refused LINQ
Guillain [place] syndrome, with chronic LLE weakness
Data Reviewed
-
Radiology: Report Reviewed by me (Right toes: Soft tissue air, which given the clinical history is most likely from infection. No convincing radiographic evidence for osteomyelitis.)
Ultrasound: Report Reviewed by me (Renal: Essentially unremarkable renal ultrasound)
Labs: Labs Reviewed by me
Old Records: Reviewed
[2023-12-07] MEDS: NOVOLOG FLEXPEN SC (14:16)
[2023-12-07] MEDS: VANCOCIN 150 IV (14:47)
[2023-12-07 15:01] LABS: Glucose - Point of Care 230 mg/dl (70-99)
[2023-12-07] MEDS: NOVOLOG FLEXPEN-MODERATE RESISTANCE 3 UNITS SC ×2 (15:06→18:23)
--- NOTE | 2023-12-07 15:39 | CON.ID ---
Consultation
-
Date/Time Consultation Requested: 12/07/23 9:11
Date/Time Consultation Performed: 12/08/23 11L48
Requesting Provider: Dr Castillo
Performing Provider: Dr Grayson
Reason for Consultation: RT 5th toe gangrene -- on Vanc/Zosyn but worsening renal function
Chief Complaint / Past History
Chief Complaint
R Foot Pain
History of Present Illness
Ms Tayo Sanchez is a 48 year old female with history of CVA, congential heart disease (unknown typ), uncontrolled DM2 with a1c 9 who presented here for a two week history right foot pain, swelling, malodorous discharge. Trial of lotrimin spray
was ineffective. The last two days in particular have had progressive fevers, chills, malaise and swelling/redness. The evening of admission she was scrubbing the foot with a loofa and then noted skin peeling from the toe and malodorous discharge
which prompted assessment here.
Since arrival here she has been afebrile, bp stable, wbc initially 19.7, hgb 7.3, plt 315, L shift is noted, cr was initially 2.4 now 3.0 - her baseline looks to be around 2.5, co2 today 12, lactic acid initially 1.2, crp 223, am vanc level 13, MRI
right LE: 2.5 cm ABSCESS dorsal to the right 5th MTP joint. 2. SOFT TISSUE EMPHYSEMA tracking around the proximal phalanx of the right 5th toe. 3. SEVERE CELLULITIS throughout the right forefoot. 4. No MRI evidence for acute osteomyelitis. 5.
Diffuse signal abnormality throughout the muscles of the right foot (either severe diffuse myositis or acute on chronic muscle denervation secondary to diabetes mellitus).' renal US: unremarkable, IVANIA done but not yet read, blood cultures no growth
to date, mrsa screen pending, reports hives with latex, was on vancomycin and zosyn. jerome noted. Taken to the OR and udnerwent right 5th toe amputation which was left open for healing by secondary intention. Bone cultures aerobic and anaerobic sent
from 5th prox phalanx, of note scant blood flow to deep tissues, no purulence. Gram stain with rare GPCs. ID is consulted for assistance with management.
Past History
Additional Past Medical History:
ASCVD (CVA x 2)
Hypertension
DM-II with Retinopathy, Nephropathy and Neuropathy
Chronic HFpEF
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
Dysconjugate Gaze / Vision Impairment
Additional Past Surgical History:
Eye surgery
Open heart surgery as a child
Allergy History:
latex Allergy (Verified 09/01/23 19:15)
Hives
soap Allergy (Verified 09/01/23 19:15)
Rash
Medications Reviewed: Yes
Social History
Tobacco: Non-Smoker
Alcohol: Former
Drug: None
Family History
Family History: Not Pertinent
Review of Systems
Review of Systems
General: Chills; Negative Fever
All systems: All other systems were reviewed and were negative
Vital Signs
Temp Pulse Resp BP Pulse Ox
98.6 F 97 18 150/52 99
12/07/23 14:53 12/07/23 14:53 12/07/23 14:53 12/07/23 14:53 12/07/23 14:53
Physical Exam
Physical Exam
Constitutional: No Acute Distress
Cardiovascular: Regular Rate and S1/S2; Negative Murmur or Rub
Pulmonary: Clear and Symmetric; Negative Wheezes, Rales or Rhonchi
Gastrointestinal: Soft, Non Tender, Non Distended and Normal Bowel Sounds
Skin: Warm and Dry; Negative Rash or Jaundice
Wound: Other (dressing take down deferred as wound left open for secondary intention healing)
Lab / Diagnostic Study Results
12/07/23 07:29
12/07/23 07:29
Abs Immat Gran (auto) 0.1 10^3/uL (0-0.05) H 12/07/23 07:29
Absolute Neuts (auto) 15.9 10^3/uL (1.4-6.5) H 12/07/23 07:29
Absolute Lymphs (auto) 1.4 10^3/uL (1.2-3.4) 12/07/23 07:29
Absolute Monos (auto) 1.5 10^3/uL (0.1-0.6) H 12/07/23 07:29
Absolute Basos (auto) 0.1 10^3/uL (0-0.2) 12/07/23 07:29
Immature Gran % 0.6 % (0-0.5) H 12/07/23 07:29
Neutrophils % 83.3 % (42.2-75.2) H 12/07/23 07:29
Lymphocytes % 7.1 % (20.5-51.1) L 12/07/23 07:29
Monocytes % 7.9 % (1.7-9.3) 12/07/23 07:29
Eosinophils % 0.7 % (0-6) 12/07/23 07:29
Basophils % 0.4 % (0-2) 12/07/23 07:29
ESR 105 mm/hour (0-20) H 12/06/23 00:52
Lactic Acid 1.2 mmol/L (0.7-2.0) 12/06/23 00:52
C-Reactive Protein 223.70 mg/L (0.0-10.00) H 12/06/23 00:52
Microbiology Results
Micro:
12/06/23 03:26 Blood Culture - Preliminary
Blood/Venous No Growth in 24 hours- Final report to follow
12/06/23 00:51 Blood Culture - Preliminary
Blood/Venous No Growth in 24 hours- Final report to follow
12/06/23 22:32 MRSA Screen - Pending
Nose
Assessment / Plan
Diabetic Foot Infection
R 5th toe Gangrene
DM1 - uncontrolled
CKD4
Congenital Heart disease
/AR
Pulm HTN
Guillain [place] syndrome, with chronic LLE weakness
- blood cultures x2 in progress
- MRI without evidence of osteomyelitis at this time, time course is relatively short
- for possible angiogram later this admission
- agree with vancomycin
- switched zosyn to meropenem 12/06
- trend renal function - has further declined; note patient currently refusing HD
- will need tighter diabetic control as an outpatient
- appreciate podiatry and vascular surgery assistance
--- NOTE | 2023-12-07 16:33 | W.PN.UPDATE ---
Update Note
Progress Note Update
Chart reviewed however patient is in the OR at this time.
--- NOTE | 2023-12-07 16:41 | W.SUR.POST ---
Surgical Immediate Post Op
Note
Pre Op Diagnosis: Right 5th toe gangrene
Post Op Diagnosis: Same as above
Procedure Performed: Right 5th toe amputation and left open for secondary intention healing
Primary Surgeon: Dr. Casey
Secondary Surgeons: None
Anesthesia: MAC with local block
Estimated Blood Loss: 2cc's
Fluids: none
Drains/Shunts: None
Specimens/Cultures: Rt 5th toe and aerobic and anaerobic cultures sent , bone form 5th proximal phalanx
Doppler/Duplex/Angio (Y/N): N
Complications: None
Operative Findings: No deep tissue purulence noted. Scant blood flow to the deep tissues
Patient stable in PACU with intact vascular to Rt foot an stable vital signs
[2023-12-07 17:01] LABS: Glucose - Point of Care 235 mg/dl (70-99)
--- NOTE | 2023-12-07 17:29 | W.CON.NEPH ---
Consultation
-
Date/Time Consultation Requested: 12/07/23 0911
Date/Time Consultation Performed: 12/07/23 1700
Requesting Provider: Keo Guillaume
Performing Provider: Juana Talbot
Reason for Consultation: MARYLOU with CKD
Medical History
-
Chief Complaint: Right foot pain
History of Present Illness:
48y F with PMH significant for DM- since age of 12 on insulin, retinopathy, neuropathy, nephropathy CKD baseline cr in 2 range not seen by nephro before ,Congenital heart disease of unknown type. She had surgery at age 5 to relieve an obstruction
near her aorta or aortic valve, hypertension not on meds and prior CVAs on ASA and statin who presents to ED on 12/05 complaining of R foot pain and malodorous discharge. Patient states that she developed burning / itching sensation in both feet
about 2 weeks ago. She felt this was athlete's foot and started to use Lotrimin spray without significant improvement. For the past 2 days, she noted increased pain, swelling and redness in the R foot in particular and took few doses of Ibuprofen.
In the shower after scrubbing with loofa she noted the skin peeling from her small toe and appreciated malodorous discharge. MRI shows abscess and underwent 5th toe amputation for gangrene today. On admit her cr was at 2.5 however today it is upto
3, sodium at 127, bicarb 12. She reports not urinating at all today. She normally takes lasix. Thinks her edema is from IVF given since admit. Vascular planning angiogram in the future based on renal function. She currently offers no cp or sob. No
abd pain or n/v.
Past Medical History
ASCVD (CVA x 2)
Hypertension
DM-II with Retinopathy, Nephropathy and Neuropathy
Chronic HFpEF
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
Dysconjugate Gaze / Vision Impairment
Congenital heart disease of unknown type. She had surgery at age 5 to relieve an obstruction near her aorta or aortic valve
Past Surgical History: Tonsilectomy (Eye surgery Open heart surgery as a child)
Social History
Tobacco: Non-Smoker
Alcohol: Former
Drug: None
Personal: Single
Employment: Disabled
Family History
MOther side family with HTN, DM and ESRD On dialysis
Allergies / Home Medications
Allergy/AdvReac Type Severity Reaction Status Date / Time
latex Allergy Hives Verified 09/01/23 19:15
soap Allergy Rash Verified 09/01/23 19:15
�Medication �Instructions �Recorded �Confirmed �Type
insulin glargine 100 unit/mL 18 - 20 unit SC HS Diabetes 04/06/23 12/06/23 History
subcutaneous solution (Lantus
U-100 Insulin)
insulin lispro 100 unit/mL 4 unit SC AC Diabetes 04/06/23 12/06/23 History
subcutaneous pen
omega 7-[id number] oil 900 1 cap PO DAILY Supplement 04/06/23 12/06/23 History
mg-1,400 mg capsule,delayed release
aspirin 81 mg tablet,delayed 81 mg PO DAILY Blood Clot 05/04/23 12/06/23 Rx
release Prevention/Tx #30 tabs
atorvastatin 80 mg tablet 80 mg PO QPM #30 tabs 05/04/23 12/06/23 Rx
furosemide 40 mg tablet 40 mg PO DAILY PRN Weight gain, 12/07/23 12/07/23 History
edema
Review of Systems
-
All complete 12 point ROS have been inquired and found negative other than stated in HPI
Physical Exam
Vital Signs
Vital Signs
Temp Pulse Resp BP Pulse Ox
97.7 F 82 13 125/60 100
12/07/23 16:42 12/07/23 17:15 12/07/23 17:15 12/07/23 17:15 12/07/23 17:15
Lab Results
WBC 19.1 10^3/uL (4.8-10.8) H 12/07/23 07:29
RBC 3.31 10^6/uL (4.20-5.40) L 12/07/23 07:
Hgb 7.3 g/dL (12.0-16.0) L 12/07/23 07:
Hct 23.2 % (37.0-47.0) L 12/07/23 07:
Plt Count 315 10^3/uL (130-400) 12/07/23 07:29
Sodium 127 mmol/L (135-145) L 12/07/23 07:
Potassium 4.9 mmol/L (3.5-5.1) 12/07/23 07:
Chloride 102 mmol/L (98-107) 12/07/23 07:29
Carbon Dioxide 12 mmol/L (22-30) L* 12/07/23 07:
BUN 83 mg/dl (7-17) H 12/07/23 07:29
Creatinine 3.0 mg/dL (0.6-1.0) H 12/07/23 07:
eGFR 18.59 12/07/23 07:29
Glucose 193 mg/dl (70-99) H 12/07/23 07:29
Calcium 8.7 mg/dl (8.4-10.2) 12/07/23 07:
Albumin 3.6 g/dl (3.5-5.0) 12/06/23 00:51
MRI foot:
IMPRESSION:
1. 2.5 cm ABSCESS dorsal to the right 5th MTP joint.
2. SOFT TISSUE EMPHYSEMA tracking around the proximal phalanx of the right 5th toe.
3. SEVERE CELLULITIS throughout the right forefoot.
4. No MRI evidence for acute osteomyelitis.
5. Diffuse signal abnormality throughout the muscles of the right foot (either severe diffuse myositis or acute on chronic muscle denervation secondary to diabetes mellitus).
echo:
CONCLUSIONS
Left ventricle is small in size.
Hyperdynamic left ventricular systolic function.
Stage II diastolic dysfunction suggestive of abnormal relaxation and increased
filling pressures.
Dense mitral annular calcification.
Mild to moderate mitral stenosis (calcific in nature with the dense MAC. The
anterior MV leaflet moves normally).
Mild mitral regurgitation.
Thickened aortic valve with restricted leaflet motion.
Moderate aortic stenosis.
Moderate aortic regurgitation.
Mild tricuspid regurgitation.
Estimated PASP 60-65 mmHg.
No significant change since the prior study of 04/07/2023.
The nature of her congenital heart disease and congenital heart surgery at age
5 is unknown. She reports correction of a blockage near her aorta or aortic
valve.
renal US:
Findings: Right kidney measures 10.7 cm, and the left kidney measures 11.4 cm in length. No hydronephrosis, contour deforming solid renal mass or echogenic shadowing foci to suggest renal calculi.
A partially filled bladder is seen in the pelvis and appears grossly unremarkable sonographically. Bilateral ureterovesical jets were visualized during the exam.
Pre-void urinary bladder volume: 227 cc
The patient was unable to void.
Incidental uterine fibroids noted.
IMPRESSION:
1. Essentially unremarkable renal ultrasound, as detailed above.
Physical Exam
General: Awake, Alert, Oriented, AOx3, No Distress and Nontoxic
HEENT: EOMI and Anicteric
Respiratory: Clear and Nonlabored Respirations
Cardiac: S1/S2 and Regular Rate/Rhythm
Abdomen: Soft, Nontender and Nondistended
Musculoskeletal: Edema (1+rt>left)
Skin: No Rash, No Cyanosis and Normal Turgor
Neuro: Nonfocal/Grossly Intact
Psych: Mood/afflect pleasant and Appropriate
Data Reviewed
-
Radiology: Report Reviewed by me and Discussed with Patient
Labs: Labs Reviewed by me and Discussed with Patient
Assessment/Plan
-
IMP:
Diabetic Foot Infection Right Foot
Sepsis secondary to the above
DM-I-onset age 12-neuropathy, retinopathy and nephropathy
MARYLOU with CKD stage 4
hyponatremia
Acute on chr anemia
A gap met acidosis
ASCVD
Multiple prior CVAs. LINQ recorder recommended; however, patient declined.
Chronic HFpEF
Congenital heart surgery as a child, no records available
Moderate , AR, mild to mod MS
Guillain [place] syndrome, with chronic LLE weakness
Plan:
A/w diabetic foot infection s/p right 5th toe amputation for gangrene
MARYLOU with CKD stage 4, baseline cr in 2 range and not seen Nephro out pt, thinks it is from diabetic nephropathy
MARYLOU could be from sepsis, and NSAID use, need to monitor UOP-anuric today is concerning
need urine studies, renal US with out acute findings , check SPEP, serologies. UPEP when urine available
BP stable with no hypotension
worsening met acidosis with NS-add po bicarb
peripheral edema, check BNP-hold lasix or IVF at this time
hyponatremia likely dilutional, need urine studies
met acidosis likely worsened with cl based IVF-start po bicarb
microcytic anemia-follow hb, prn transfusion, check fe studies-may benefit from ANDRA
dose abx renally,a void nephrotoxins
I am concerned that she is at high risk of dialysis if no improvement of renal function seen
She refused SET O TYPE OPERATOR at all cost, will review again wiht her
d/w nursing
--- NOTE | 2023-12-07 18:00 | PTCARENOTE ---
Received patient from PACU. AAOx3, comfortable in bed. Right foot dressing CDI. Will continue to monitor.
[2023-12-07] MEDS: STERILE WATER FOR INJECTION 10 ML IV (18:08)
[2023-12-07] MEDS: LOVENOX 40 MG SC (18:08)
[2023-12-07] MEDS: LIPITOR 80 MG PO (18:08)
[2023-12-07] MEDS: LASIX 40 MG IV (18:08)
[2023-12-07] MEDS: MERREM 500 MG IV (18:08)
[2023-12-07] MEDS: NOVOLOG FLEXPEN 5 UNITS SC (18:23)
[2023-12-07] MEDS: ZOSYN IV (18:59)
[2023-12-07 19:58] LABS: Urine Albumin 1+ (Neg - Trace); Urine Bilirubin Negative (Negative); Urine Character Clear (Clear); Urine Color Yellow; Urine Glucose Negative (Negative); Urine Ketone Negative (Negative); Urine Leukocyte Negative (Negative); Urine Nitrite Negative (Negative); Urine Occult Blood Negative (Negative); Urine Specific Gravity 1.015 (<1.030); Urine Urobilinogen Negative (Neg - 1+)
[2023-12-07 20:26] LABS: Osmolality Urine 316 mOsm/kg (300-900)
[2023-12-07 20:29] LABS: Urine Bacteria Many (Negative); Urine Red Blood Cell 0-2 /HPF (0-2); Urine Squamous Cell 0-2 /LPF (Few); Urine White Cell 0-2 /HPF (0-5)
[2023-12-07 20:31] LABS: Urine Calcium Oxalate Crystals Present
[2023-12-07 20:35] LABS: Protein/creatinine Ratio 0.6; Urine Protein 96 mg/dl; Urine Sodium 8 mmol/L (30-90)
--- NOTE | 2023-12-07 20:45 | PTCARENOTE ---
Stressed to pt the importance of calling for assist if needing to get OOB. Instructed on NWB to Rt foot and use of Darco shoe when OOB. Pt verbalized understanding.
[2023-12-07 21:34] LABS: Glucose - Point of Care 158 mg/dl (70-99)
[2023-12-07] MEDS: SODIUM BICARBONATE 1300 MG PO (23:08)
[2023-12-07] MEDS: LANTUS 0.149999999999999994 UNITS SC (23:09)
[2023-12-08] VITALS (8 sets, daily range): BP systolic 133–155; BP diastolic 55–72; PULSE 90; BMI 30.1
--- NOTE | 2023-12-08 03:45 | PTCARENOTE ---
Lucia MUNGUIA notified of no void since straight cath following surgery yesterday. Bladder scan showed 115 ml. No orders @ this time - to be seen by Nephro.
[2023-12-08] MEDS: MERREM 500 MG IV ×2 (05:47→17:22)
[2023-12-08] MEDS: FLUSH (NSS) 2 FLUSH IV (05:47)
--- NOTE | 2023-12-08 05:51 | W.PN.UPDATE ---
Update Note
Progress Note Update
RN reports pt wih no void since post op 1829 where she was straight cath's for approx 450 ml
Bladder scan currently 115ml
Pt is complex with extensive cardiac hx and also jerome on ckd
Will await am labs and defer further treatment to cardiology and nephro
[2023-12-08] MEDS: STERILE WATER FOR INJECTION 10 ML IV ×2 (05:57→17:23)
[2023-12-08 07:18] LABS: Glucose - Point of Care 127 mg/dl (70-99)
--- NOTE | 2023-12-08 08:44 | PN.DE.MGMTRT ---
Insulin Management
- -
12/08/2023: Diabetes Management Consult Follow up
Patient admitted with Right fifth toe discoloration, open wound.
PMH: CAD(CABG 1981), CKD, CVA x2, HTN, Retinopathy, CHF and T2DM. A1C 9.2%, Cr 3.0 eGFR 18.59, was taking Lantus 18-20 units @ HS and Lispro 4 units AC.
Patient is awake, alert and oriented sitting on side of bed. Patient states she was diagnosed with diabetes at age 12 and started insulin at age 13. She states her A1C is greatly improved. She has a glucose monitor and tests daily.
POD 1 s/p amputation R 5th toe. Diet changed from 1800 calorie to 1600 calorie. Lantus increased to 15 units @ hs last evening. Fasting glucose today 127. Will make no change to lantus, follow AC glucose for need to change AC novolog.
Will follow up with pt tomorrow.
Diabetes History
- -
Pre-Admission Diabetes Regimen
Lab Results
Hemoglobin A1c 9.2 % (4.0-5.6) H 12/06/23 08:12
Insulin Pump Settings
IP Diabetes Regimen
12/07/23 12/07/23 12/07/23
15:00 17:00 21:33
POC Glucose 230 H 235 H 158 H
12/08/23
07:16
POC Glucose 127 H
Meal type: Dinner
Meal type: Lunch
Amount consumed: 100%
Patient Education
[2023-12-08 08:51] LABS: Hematocrit 22.6 % (37.0-47.0); Hemoglobin 7.3 g/dL (12.0-16.0); Mean Corp Hgb Conc. 32.3 g/dL (33.0-37.0); Mean Corpuscular Hgb 21.9 pg (27.0-31.0); Mean Corpuscular Volume 67.7 fL (81.0-99.0); Mean Platelet Volume 9.6 fL (7.4-10.4); Platelet Count 391 10^3/uL (130-400); Red Blood Cell Count 3.34 10^6/uL (4.20-5.40); White Blood Cell Count 17.3 10^3/uL (4.8-10.8)
[2023-12-08] MEDS: SODIUM BICARBONATE 1300 MG PO ×3 (09:05→22:12)
[2023-12-08] MEDS: ASPIR LOW (ENTERIC COATED) 81 MG PO (09:05)
[2023-12-08 09:13] LABS: Vancomycin Random 18.8 ug/ml
--- NOTE | 2023-12-08 09:18 | W.PN.CD ---
Today's Communication / Plan
-
IV Lasix today
Review [facility] records when available
Impression / Plan
-
Cardiac risk Right 5th toe amputation performed on 12/07/2023
-No cardiac complications detected from surgery yesterday
Sepsis in the setting of right 5th toe infection in a diabetic patient
PAD, vascular surgery involved
HFpEF, acute on chronic
-Volume overloaded on exam
-Furosemide 40 mg IV x1 was given post op and will give another today 12/09/2023. At home did not use Lasix much
-Trend daily weight, I/O, and BMP with diuresis
Congenital heart surgery as a child, no records available=> we did ask for records to be obtained
Mixed valvular heart disease: /AR/MS (calcific)/MR/pulm HTN
Chronic kidney disease with MARYLUO
Anemia, appears chronic, Hgb 7.3
Moderate aortic regurgitation, update TTE
Type I DM, uncontrolled, Hgba1c 9.6%, per primary => multiple complications
Prior CVA, refused LINQ
Guillain [place] syndrome, with chronic LLE weakness
Subjective:
No CP or dyspnea.
Echo 12/08/2023:
CONCLUSIONS
Left ventricle is small in size.
Hyperdynamic left ventricular systolic function.
Stage II diastolic dysfunction suggestive of abnormal relaxation and increased
filling pressures.
Dense mitral annular calcification.
Mild to moderate mitral stenosis (calcific in nature with the dense MAC. The
anterior MV leaflet moves normally).
Mild mitral regurgitation.
Thickened aortic valve with restricted leaflet motion.
Moderate aortic stenosis.
Moderate aortic regurgitation.
Mild tricuspid regurgitation.
Estimated PASP 60-65 mmHg.
No significant change since the prior study of 04/07/2023.
The nature of her congenital heart disease and congenital heart surgery at age
5 is unknown. She reports correction of a blockage near her aorta or aortic
valve.
Physical Exam
Vital Signs/Labs
Vital Signs
Temp Pulse Resp BP Pulse Ox
98.6 F 93 18 144/72 98
12/08/23 07:55 12/08/23 07:55 12/08/23 07:55 12/08/23 07:55 12/08/23 07:55
12/07/23 12/08/23 12/09/23
06:59 06:59 06:59
Actual Weight 76.912 kg
12/08/23 08:30
Physical Exam
Constitutional: No acute distress
EENT: Anicteric
Cardiovascular: Rhythm & rate is regular and Pedal edema present (2+ right leg, 1+ left leg)
Respiratory: Respiratory effort normal and Lungs clear to auscul.
GI: Soft
Neuro/Psych: AO x 3
Data Reviewed
-
Date of Service: December 08, 2023
[2023-12-08 09:26] LABS: ALT (SGPT) 36 U/L (0-35); AST (SGOT) 39 U/L (14-36); Alkaline Phosphatase 456 U/L (38-126); Blood Urea Nitrogen 85 mg/dl (7-17); Carbon Dioxide 17 mmol/L (22-30); Chloride 99 mmol/L (98-107); Estimated Creatinine Clearance 19 ml/min; Glucose 112 mg/dl (70-99); Iron 37 ug/dl (37-170); Potassium 5.1 mmol/L (3.5-5.1); Sodium 129 mmol/L (135-145); Total Bilirubin 0.8 mg/dl (0.2-1.3); Total Protein 6.5 g/dl (6.3-8.2); eGFR 15.45
[2023-12-08 09:28] LABS: NT-proBNP 19100 pg/ml
[2023-12-08 09:35] LABS: Percent Saturation 12 % (20-50); Total Iron Binding Capacity 297 ug/dl (265-497)
[2023-12-08 09:52] LABS: Ferritin 74.6 ng/ml (6.24-137)
[2023-12-08] MEDS: NOVOLOG FLEXPEN 5 UNITS SC ×2 (10:01→17:23)
[2023-12-08] MEDS: LASIX 60 MG IV (10:03)
--- NOTE | 2023-12-08 11:01 | PHA.VAN.FU ---
Vancomycin Assessment / Plan
- Assessment
Renal Function: SCR Increasing
WBC's are: Trending Down
In the past 24 hrs, patient has been: Afebrile
Concomitant Antimicrobials: meropenem
- Assessment - Therapeutic Drug Monitoring
Random Level: 18.8 - drawn ~17.5H after previous dose of 750mg
- Dosing Plan
Dosing by Level: Hold off on dosing today
- Monitoring Plan
Random Level: 12/08 599
- Follow Up
Pharmacy will continue to follow.
Vancomycin Follow UP
- -
Patient Age: 48
Patient Sex: Female
Vancomycin Day #: 3
Indication: Diabetic Foot
Requesting Provider: Oscar / Kenan
Pertinent Antimicrobial Allergies:
no pertinent antimicrobial allergies
Height / Weight:
Height 5 ft 3 in
Actual Weight 77.111 kg
Pertinent Past Medical History: BMI ~30, DM, CKD III
- Vital Signs / Lab Results
Temp Pulse Resp BP Pulse Ox
98.6 F 93 18 144/72 98
12/08/23 07:55 12/08/23 10:03 12/08/23 07:55 12/08/23 10:03 12/08/23 07:55
Lab Results - Hematology
12/06/23 12/06/23 12/07/23
00:52 08:12 07:29
WBC 24.2 H 19.7 H 19.1 H
12/08/23
08:30
WBC 17.3 H
Lab Results - Chemistry
12/06/23 12/06/23 12/07/23
00:51 08:12 07:29
BUN 73 H 69 H 83 H
Creatinine 2.5 H 2.4 H 3.0 H
Estimated Creat Clear 27 23
Albumin 3.6
12/08/23
08:30
BUN 85 H
Creatinine 3.5 H
Estimated Creat Clear 19
Albumin 3.0 L
12/06/23
00:52
Lactic Acid 1.2
Lab Results - Urine
12/07/23
19:45
Urine Nitrite Negative
Ur Leukocyte Esterase Negative
Urine WBC 0-2
Ur Squamous Epith Cells 0-2
Urine Bacteria Many A
Microbiology Results
12/06/23 22:32 MRSA Screen - Final
Nose No Methicillin Resistant Staphylococcus aureus isolated.
12/06/23 03:26 Blood Culture - Preliminary
Blood/Venous No Growth in 48 hours- Final report to follow
12/06/23 00:51 Blood Culture - Preliminary
Blood/Venous No Growth in 48 hours- Final report to follow
12/07/23 16:14 Gram Stain - Preliminary
Foot - Right
Therapeutic Drug Monitoring
Random Vancomycin 18.8 ug/ml 12/08/23 08:30
--- NOTE | 2023-12-08 11:42 | CM ---
Patient seen bedside, initial assessment completed. Patient reports she is feeling a little said after her 5th toe amputation. Patient reports she resides in an apartment, with an elevator, with her daughter, son, and three younger children. Patient
reports she has had VN in the past, denies SNF or DME in the home. Patient requesting a walker upon discharge, will send message to PT. Patient confirms PCP Dr. Daniel, pharmacy [facility] in [place], confirms prescription coverage. Patient
denies food insecurities at home. CM will continue to follow for discharge planning needs.
Plan; home no needs, watch for possible VN needs, patient requesting walker upon discharge.
[2023-12-08] MEDS: NOVOLOG FLEXPEN SC (12:33)
--- NOTE | 2023-12-08 15:50 | W.PN.HOSP.TC ---
Addendum entered and electronically signed by Keo Castillo MD 12/08/23 17:14:
Made patient NPO after midnight due to possible right heart cath by cardiology tomorrow to evaluate further for cardiorenal acute kidney injury.
Original Note:
Today's Communication/Plan
-
Continue antibiotics
Lasix
Creatinine worsening -- appreciate nephrology assistance
Appreciate ID, cardiology and podiatry
Assessment / Plan
Assessment / Plan
Physical Exam
General: Well Developed, Well Nourished and No Apparent Distress
HEENT: Normocephalic, Atraumatic and Moist Mucous Membranes
Respiratory: Clear to Auscultation Bilaterally
Cardiac: Regular Rhythm and S1/S2
GI: Soft, Nontender and Nondistended
Skin: Right foot wrapped in dressing
Neuro: Awake, Alert and Oriented

Assessment/Plan
Patient is a 48y F with PMH significant for HTN, DM-II, multiple prior CVAs and valvular heart disease who presents to ED complaining of pain, swelling and skin changes of the R foot / 5th toe.
Diabetic Foot Infection Right Foot/Right 5th toe gangrene status post Right 5th toe amputation and left open for secondary intention healing
with cellulitic changes up to mid palomo
Sepsis secondary to the above
- Patient presented with leukocytosis and tachycardia with evident R foot infection.
- R 5th toe essentially degloved. X-ray without evident bony involvement - would check MR for further evaluation.
- Note significant elevations in ESR 105 / CRP 223.7 which may support osteomyelitis.
- IV Zosyn stopped. ID consulted, recommendations appreciated
- Meropenem started. Continue Vancomycin.
- Podiatry evaluation for further recommendations/status post right 5th toe amputation
- Follow for clinical improvement.
- Possible angiogram tomorrow with vascular surgery
DM-I
onset age 12
Mild / Pseudohyponatremia 127
- Diabetes SENIOR BACKUP ADMINISTRATOR consulted, recommendations appreciated
- Continue premeal and Long-acting Insulin as ordered
- Continue accuchecks
MARYLOU on CKD III
Anuria
metabolic Acidosis
- Creatinine worsening
- Consulted Nephrology on 12/07/23 given worsening renal function, along with acidosis and hyponatremia
- Bicarb ordered
- Avoid nephrotoxins, dose antibiotics renally
ASCVD
- Multiple prior CVAs. LINQ recorder recommended; however, patient declined.
- Continue daily ASA. Will hold Plavix acutely in the event that surgical intervention is needed.
- Continue statin, BP control, etc.
- Monitor on telemetry for now.
- Follow for any new symptoms / complaints.
Aortic Stenosis
Mitral Stenosis
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
Chronic HFpEF
Pulmonary Hypertension
- Stable. Patient is not maintained on chronic diuretic regimen but takes Lasix as needed.
- Lasix as per cardiology
- Follow daily weights, I/Os, etc.
DVT Prophylaxis: Lovenox
Code Status: Full
Anticipated Discharge: > 48 hours
Subjective/Interval History
-
Date of Service: December 08, 2023
Patient was seen and examined. She denied any new significant symptoms or complaints.
Objective Data
-
Labs:
Laboratory Results
12/08/23
08:30
WBC 17.3 H
Hgb 7.3 L
Hct 22.6 L
Plt Count 391 D
Sodium 129 L
Potassium 5.1
Chloride 99
Carbon Dioxide 17 L
BUN 85 H
Creatinine 3.5 H
Glucose 112 H
Calcium 9.0
Total Bilirubin 0.8
AST 39 H
ALT 36 H
Alkaline Phosphatase 456 H
Vital Signs:
Vital Signs
Temp Pulse Resp BP Pulse Ox
98.9 F 99 20 146/63 100
12/08/23 11:55 12/08/23 11:55 12/08/23 11:55 12/08/23 11:55 12/08/23 11:55
I&O
12/07/23 12/08/23 12/09/23
06:59 06:59 06:59
Intake Total 720 / 720
Output Total 450 / 450
Balance 720 / 720 -425 / -425
--- NOTE | 2023-12-08 16:15 | W.PN.NEPH.PH ---
Today's Communication / Plan
-
monitor UOP, hold lasix
likely benefit from RHC
IV fe course
labs in am
Assessment/Plan
-
IMP:
Diabetic Foot Infection Right Foot
Sepsis secondary to the above
DM-I-onset age 12-neuropathy, retinopathy and nephropathy
MARYLOU with CKD stage 4
hyponatremia
Acute on chr anemia
A gap met acidosis
ASCVD
Multiple prior CVAs. LINQ recorder recommended; however, patient declined.
Chronic HFpEF
Congenital heart surgery as a child, no records available
Moderate , AR, mild to mod MS
Guillain [place] syndrome, with chronic LLE weakness
Plan:
A/w diabetic foot infection s/p right 5th toe amputation for gangrene
MARYLOU with CKD stage 4, baseline cr in 2 range and not seen Nephro out pt, thinks it is from diabetic nephropathy
MARYLOU could be from sepsis, and NSAID use, need to monitor UOP-oliguria is concerning
UA bland, U PCR only 600mg/gm of cr. U na is low suggest prerenal etiology
given clinical hypervolemia (edema, high BNP) and worsening MARYLOU suggest RHC to better assess vol status
renal US with out acute findings
BP stable with no hypotension
improving met acidosis on po bicarb
hyponatremia likely dilutional, U osmo 316, lasix given per cards
microcytic anemia-follow hb, prn transfusion,Fe sat only 11%, start IV fe course-may benefit from ANDRA
dose abx renally,avoid nephrotoxins
I am concerned that she is at high risk of dialysis if no improvement of renal function seen
She did not oppose BUT[employer] RIVETER if needed-she wants to think about it
d/w nursing
-
-
Date of Service: December 08, 2023
CC / HPI / ROS
-
Chief Complaint:
MARYLOU with CKD
History of Present Illness:
cr up at 3.5, oliguric with out centeno , bladder scan 115cc
BP stable, sodium up at 129, bicarb improving to 17
no fever, hb low 7.3
Review of Systems:
no cp or sob at rest on RA
feels well today
Labs
-
Labs:
WBC 17.3 10^3/uL (4.8-10.8) H 12/08/23 08:30
RBC 3.34 10^6/uL (4.20-5.40) L 12/08/23 08:30
Hgb 7.3 g/dL (12.0-16.0) L 12/08/23 08:30
Hct 22.6 % (37.0-47.0) L 12/08/23 08:30
Plt Count 391 10^3/uL (130-400) D 12/08/23 08:30
Sodium 129 mmol/L (135-145) L 12/08/23 08:30
Potassium 5.1 mmol/L (3.5-5.1) 12/08/23 08:30
Chloride 99 mmol/L (98-107) 12/08/23 08:30
Carbon Dioxide 17 mmol/L (22-30) L 12/08/23 08:30
BUN 85 mg/dl (7-17) H 12/08/23 08:30
Creatinine 3.5 mg/dL (0.6-1.0) H 12/08/23 08:30
eGFR 15.45 12/08/23 08:30
Glucose 112 mg/dl (70-99) H 12/08/23 08:30
Calcium 9.0 mg/dl (8.4-10.2) 12/08/23 08:30
Pvu-O-Ufabazahsys Pept 63482 pg/ml 12/08/23 08:30
Albumin 3.0 g/dl (3.5-5.0) L 12/08/23 08:30
Physical Exam
-
Vital Signs:
Vital Signs
Temp Pulse Resp BP Pulse Ox
98.9 F 99 20 146/63 100
12/08/23 11:55 12/08/23 11:55 12/08/23 11:55 12/08/23 11:55 12/08/23 11:55
Cardiovascular:: Regular rate and rhythm
Respiratory:: Bilateral: CTA
Lung Excursion:: Normal
Abdomen:: Nontender and Soft
Extremity Edema:: +1: Bilateral: (rt>Left)
Centeno Catheter: No
--- NOTE | 2023-12-08 16:45 | CHAP ---
Emotional and spiritual support provided. Ms. Kent shared stories of a difficult life with many medical issues as well as family stressors. Grieving her mom's loss as well. She expressed feeling very alone and exhausted. Appreciated
prayer and the prayer blanket I brought: we prayed for healing, peace, strength....
[2023-12-08 16:52] LABS: Glucose - Point of Care 101 mg/dl (70-99)
[2023-12-08] MEDS: FERRLECIT 110 MG IV (17:20)
[2023-12-08] MEDS: LIPITOR 80 MG PO (17:23)
[2023-12-08] MEDS: LOVENOX 40 MG SC (17:42)
--- NOTE | 2023-12-08 18:39 | W.PN.POD ---
Today's Communication
Today's Communication
Patient can wt bear to Rt heel as tolerated
Assessment / Plan
-
Rt foot S/p 5th toe amputation POD #1
Rt foot cellulitis.
Diabetic small vessel disease.
PAD
Diabetic neuropathy.
Plan ; Changed surgical dressings to Rt foot.
IV abx per ID
Pt to use surgical shoe to Rt heel wt bear only.
Possible angiogram per vascular surgery.
Subjective
Chief Complaint
Rt 5th toe gangrene
Subjective
Patient seen at bedside, doing fine, no new pedal complaints offered. Denies any Rt foot pain, no calf pain no fever, chills. Slight strike through bleeding noted
Objective
Temp Pulse Resp BP Pulse Ox
97.6 F 90 16 155/63 97
12/08/23 15:55 12/08/23 15:55 12/08/23 15:55 12/08/23 15:55 12/08/23 15:55
12/08/23 08:30
12/08/23 08:30
Vital Signs and Lab results were reviewed.
Rt foot edematous Rt 5th toe amputation site is dry has pale deep tissues at the amputation site, no purulence , no drainage, no foul odor noted . no bleeding noted
[2023-12-08 21:40] LABS: Glucose - Point of Care 107 mg/dl (70-99)
[2023-12-08] MEDS: LANTUS 0.100000000000000006 UNITS SC (22:17)
[2023-12-08] MEDS: LANTUS SC (22:28)
[2023-12-09] VITALS (10 sets, daily range): BP systolic 138–175; BP diastolic 53–78; BMI 30.2
[2023-12-09] MEDS: STERILE WATER FOR INJECTION 10 ML IV (05:59)
[2023-12-09] MEDS: MERREM 500 MG IV (06:00)
[2023-12-09 06:04] LABS: Glucose - Point of Care 83 mg/dl (70-99)
[2023-12-09 07:00] LABS: % Basophils 0.5 % (0-2); % Eosinophils 2.5 % (0-6); % Immature Granulocytes 1.2 % (0-0.5); % Lymphocytes 14.6 % (20.5-51.1); % Monocytes 10.9 % (1.7-9.3); % Neutrophils 70.3 % (42.2-75.2); Absolute Basophils 0.1 10^3/uL (0-0.2); Absolute Eosinophils 0.3 10^3/uL (0-0.7); Absolute Immature Granulocytes 0.1 10^3/uL (0-0.05); Absolute Lymphocytes 1.6 10^3/uL (1.2-3.4); Absolute Monocytes 1.2 10^3/uL (0.1-0.6); Absolute Neutrophils 7.9 10^3/uL (1.4-6.5); Mean Corp Hgb Conc. 32.4 g/dL (33.0-37.0); Mean Platelet Volume 9.4 fL (7.4-10.4); Nucleated Red Blood Cells % 0 %; Platelet Count 354 10^3/uL (130-400); Red Blood Cell Count 3.09 10^6/uL (4.20-5.40); Red Cell Dist. Width 17.2 % (11.5-14.5); White Blood Cell Count 11.2 10^3/uL (4.8-10.8)
[2023-12-09 07:12] LABS: Hemoglobin 6.8 g/dL (12.0-16.0)
[2023-12-09 07:13] LABS: Vancomycin Random 15.8 ug/ml
[2023-12-09 07:36] LABS: ALT (SGPT) 33 U/L (0-35); AST (SGOT) 36 U/L (14-36); Albumin 2.8 g/dl (3.5-5.0); Alkaline Phosphatase 478 U/L (38-126); Blood Urea Nitrogen 86 mg/dl (7-17); Calcium 8.9 mg/dl (8.4-10.2); Carbon Dioxide 17 mmol/L (22-30); Chloride 103 mmol/L (98-107); Estimated Creatinine Clearance 21 ml/min; Glucose 61 mg/dl (70-99); Magnesium 2.4 mg/dl (1.6-2.3); Potassium 4.7 mmol/L (3.5-5.1); Sodium 131 mmol/L (135-145); Total Bilirubin 0.6 mg/dl (0.2-1.3); eGFR 17.21
--- NOTE | 2023-12-09 08:14 | PN.DE.MGMTRT ---
Insulin Management
- -
12/09/2023: Diabetes Management Consult Follow up
Patient admitted with Right fifth toe discoloration, open wound.
PMH: CAD(CABG 1981), CKD, CVA x2, HTN, Retinopathy, CHF and T2DM. A1C 9.2%, Cr 3.0 eGFR 18.59, was taking Lantus 18-20 units @ HS and Lispro 4 units AC.
Patient is awake, alert and oriented sitting on side of bed. Patient states she was diagnosed with diabetes at age 12 and started insulin at age 13. She states her A1C is greatly improved. She has a glucose monitor and tests daily.
POD 2 s/p amputation R 5th toe. Diet changed from 1800 calorie to 1600 calorie.
12/07 Patient refused lunch, pre dinner glucose 101, HS glucose 107. HS Lantus reduced to 10 units, fasting glucose today 61 venous. Will reduce HS lantus to 12 units and AC novolog to 3 units with low corrective.
Will follow up with pt tomorrow.
Diabetes History
- -
Type of Diabetes: 2 requiring insulin
Pre-Admission Diabetes Regimen
12/08/23 12/09/23
08:30 06:29
Creatinine 3.5 H 3.2 H
Lab Results
Hemoglobin A1c 9.2 % (4.0-5.6) H 12/06/23 08:12
Insulin Pump Settings
IP Diabetes Regimen
12/08/23 12/08/23 12/08/23
08:30 16:51 21:37
Glucose 112 H
POC Glucose 101 H 107 H
12/09/23 12/09/23
06:03 06:29
Glucose 61 L
POC Glucose 83
Meal type: Lunch
Meal type: Breakfast
Amount consumed: Patient refused
Amount consumed: 50%
Patient Education
[2023-12-09] MEDS: NOVOLOG FLEXPEN SC ×3 (09:34→14:20)
--- NOTE | 2023-12-09 09:46 | W.PN.CD ---
Today's Communication / Plan
-
Right heart cath prior to further diuresis
Address H/H by hospitalist
Impression / Plan
-
Cardiac risk Right 5th toe amputation performed on 12/07/2023
-No cardiac complications detected from surgery yesterday
Sepsis in the setting of right 5th toe infection in a diabetic patient
PAD, vascular surgery involved
HFpEF, acute on chronic
-Volume overloaded on exam
-Nephrology requested right heart cath. Will proceed today before additional diuresis.
-Furosemide 40 mg on 12/07 and 60 mg on 12/09/2023
-Trend daily weight, I/O, and BMP with diuresis
Congenital heart surgery as a child, no records available=> we did ask for records to be obtained
Mixed valvular heart disease: /AR/MS (calcific)/MR/pulm HTN
Chronic kidney disease with MARYLOU
Anemia, appears chronic, Hgb 7.3 and now less than 7 => medicine will transfuse.
Moderate aortic regurgitation, update TTE
Type I DM, uncontrolled, Hgba1c 9.6%, per primary => multiple complications
Prior CVA, refused LINQ
Guillain [place] syndrome, with chronic LLE weakness
Subjective:
No CP or dyspnea at rest.
Echo 12/08/2023:
CONCLUSIONS
Left ventricle is small in size.
Hyperdynamic left ventricular systolic function.
Stage II diastolic dysfunction suggestive of abnormal relaxation and increased
filling pressures.
Dense mitral annular calcification.
Mild to moderate mitral stenosis (calcific in nature with the dense MAC. The
anterior MV leaflet moves normally).
Mild mitral regurgitation.
Thickened aortic valve with restricted leaflet motion.
Moderate aortic stenosis.
Moderate aortic regurgitation.
Mild tricuspid regurgitation.
Estimated PASP 60-65 mmHg.
No significant change since the prior study of 04/07/2023.
The nature of her congenital heart disease and congenital heart surgery at age
5 is unknown. She reports correction of a blockage near her aorta or aortic
valve.
Physical Exam
Vital Signs/Labs
Vital Signs
Temp Pulse Resp BP Pulse Ox
97.9 F 95 18 165/64 97
12/09/23 07:00 12/09/23 07:00 12/09/23 07:00 12/09/23 07:00 12/09/23 07:00
12/08/23 12/09/23 12/10/23
06:59 06:59 06:59
Actual Weight 77.281 kg
12/09/23 06:29
12/09/23 06:29
Magnesium 2.4 mg/dl (1.6-2.3) H 12/09/23 06:29
12/08/23
08:30
Sku-R-Duhdvzgypta Pept [id number]
Physical Exam
Constitutional: No acute distress
EENT: Anicteric
Cardiovascular: Rhythm & rate is regular and Pedal edema present (mostly on RLE likely from infection but some on right likely component of heart failure)
Respiratory: Respiratory effort normal and Lungs clear to auscul.
Data Reviewed
-
Date of Service: December 09, 2023
--- NOTE | 2023-12-09 09:50 | PHA.VAN.FU ---
Vancomycin Assessment / Plan
- Assessment
Renal Function: SCR Decreasing (BUN sttable)
WBC's are: Trending Down
In the past 24 hrs, patient has been: Afebrile
Concomitant Antimicrobials: meropenem
- Assessment - Therapeutic Drug Monitoring
Random Level: 15.8 - drawn ~22H after previous level of 18.8
Calculated ke: 0.0079
Calculated half life (H): 87.6
- Dosing Plan
Dosing by Level: Hold off on dosing today (based on current ke, patient anticipated to maintain level > 12 for ~35H)
Patient also anticipated to maintain level > 10 for over 48H based on current ke
SCR improving so patient may have increased clearance in next 24H compared to predicted calculations
However, expect will still remain therapeutic and will hold off on dosing for now to minimize nephrotoxicity risk with vancomycin
- Monitoring Plan
Random Level: 12/09 06
- Follow Up
Pharmacy will continue to follow.
Vancomycin Follow UP
- -
Patient Age: 48
Patient Sex: Female
Vancomycin Day #: 4
Indication: Diabetic Foot
Requesting Provider: Oscar / Kenan
Pertinent Antimicrobial Allergies:
no pertinent antimicrobial allergies
Height / Weight:
Height 5 ft 3 in
Actual Weight 77.281 kg
Pertinent Past Medical History: BMI ~30, DM, CKD III
- Vital Signs / Lab Results
Temp Pulse Resp BP Pulse Ox
97.9 F 95 18 165/64 97
12/09/23 07:00 12/09/23 07:00 12/09/23 07:00 12/09/23 07:00 12/09/23 07:00
Lab Results - Hematology
12/07/23 12/08/23 12/09/23
07:29 08:30 06:29
WBC 19.1 H 17.3 H 11.2 H
Lab Results - Chemistry
12/07/23 12/08/23 12/09/23
07:29 08:30 06:29
BUN 83 H 85 H 86 H
Creatinine 3.0 H 3.5 H 3.2 H
Estimated Creat Clear 23 19 21
Albumin 3.0 L 2.8 L
Microbiology Results
12/06/23 03:26 Blood Culture - Preliminary
Blood/Venous No Growth in 72 hours- Final report to follow
12/06/23 00:51 Blood Culture - Preliminary
Blood/Venous No Growth in 72 hours- Final report to follow
12/07/23 16:14 Anaerobic Culture - Preliminary
Foot - Right Culture pending. Anaerobic cultures are examined after 3
days incubation. Additional information to follow.
12/07/23 16:14 Wound Culture - Preliminary
Foot - Right Streptococcus agalactiae
Gram Stain - Preliminary
12/06/23 22:32 MRSA Screen - Final
Nose No Methicillin Resistant Staphylococcus aureus isolated.
Therapeutic Drug Monitoring
Random Vancomycin 15.8 ug/ml 12/09/23 06:29
[2023-12-09] MEDS: ASPIR LOW (ENTERIC COATED) 81 MG PO (09:54)
[2023-12-09] MEDS: SODIUM BICARBONATE 1300 MG PO ×3 (09:54→20:57)
[2023-12-09 10:17] LABS: Glucose - Point of Care 62 mg/dl (70-99)
[2023-12-09 10:36] LABS: Glucose - Point of Care 81 mg/dl (70-99)
--- NOTE | 2023-12-09 11:00 | PTCARENOTE ---
patient to remain on tele as per Dr Castillo
--- NOTE | 2023-12-09 11:45 | ITS.CL.CATH ---
[facility] [employer] P[employer] - Catheterization
Cardiac Catheterization
Procedure Report:
RIGHT HEART CATHETERIZATION
Date of Procedure: 12/09/2023
Referring: Timothy Hernandez M.D.
INDICATION: Determination of volume status, cardiac output in context of worsening renal failure.
ACCESS:
5 [place] right antecubital fossa.
CATHETERS:
5 [place]ran balloon wedge
PROCEDURE:
An IV was placed in the right antecubital fossa by the nursing staff. The patient was prepped and draped in standard sterile fashion, including copious cleansing of the IV and IV site. The area around the IV was anesthetized with 1% lidocaine. A 5
[place]ran sheath was inserted into the basilic vein. A 5 [place]ran balloon wedge catheter was advanced through the sheath into the superior vena cava. An SVC oxygen saturation was drawn. The balloon wedge catheter was advanced into the pulmonary artery
and a pulmonary artery oxygen saturation was drawn. Arterial oxygen saturation was assumed from pulse oximetry. Cardiac output was calculated using the Belinda equation. The PA, wedge, RV and RA pressures were measured on pullback. The balloon wedge
catheter was removed. The 5 [place]orran sheath was removed and manual pressure was held for hemostasis.
Weight (kg): 77.1
PA (s/d/x mmHg): 99/31/54
PCWP (a/v/x mmHg): 55/64/47
RV (s/x mmHg): 100/17
RA (a/v/x mmHg): 25/25/17
SVC SvO2 (%): 60.0
IVC SvO2 (%): Not obtained.
RA SvO2 (%): Not obtained.
RV SvO2 (%): Not obtained.
PA SvO2 (%): 53.7
SaO2 (%): 97.0 (assumed)
Hbg (g/dL): 7.1
Belinda
CO (liters/minute): 4.68
CI (liters/minute/m2): 2.59
Thermodilution
CO (liters/minute): Not obtained.
CI (liters/minute/m2): Not obtained.
TPG (mmHg): 7
PVR (Steven Units): 1.50
AVO2 Difference (Volume %): 4.18
Radiation (mGy): 5.77
DAP (cm2.Gy): 1.0850
Fluoroscopy time (minutes): 1.0
CONCLUSION:
1. Severely elevated filling pressures (PCWP = 47 mmHg at 77.1 kg).
2. Severe/critical postcapillary pulmonary hypertension, WHO group 2 (, PVR 1.50 Steven units).
RECOMMENDATIONS:
1. Expectant management after right heart catheterization via right antecubital approach.
2. Aggressive diuresis/volume control.
Copy to: Timothy Hernandez M.D., Timothy RowellO.
[place] Neal D.O., FACC, FACP
--- NOTE | 2023-12-09 12:12 | W.PN.ID1 ---
Date of Service
Date of Service: December 09, 2023
Today's Communication
- 12/06 OR culture S aureus and GBS - bone from 5th prox phalanx -confirmed with surgeon- options would be revision vs further antibiotics - tiger text left for podiatry
- continue with vancomycin
- judicious dosing, discussed with clinical pharmacy 12/07
- stop meropenem
Assessment / Plan
Diabetic Foot Infection
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
DM1 - uncontrolled
CKD4
Congenital Heart disease
/AR
Pulm HTN
Guillain [place] syndrome, with chronic LLE weakness
- blood cultures x2 in progress
- 12/06 OR culture S aureus and GBS - bone from 5th prox phalanx -confirmed with surgeon- options would be revision vs further antibiotics - tiger text left for podiatry
- MRI without evidence of osteomyelitis at this time, time course is relatively short
- for possible angiogram later this admission
- continue with vancomycin
- judicious dosing, discussed with clinical pharmacy 12/07
- stop meropenem
- trend renal function; note patient currently refusing HD
- will need tighter diabetic control as an outpatient
- follow clinically
Chief Complaint
-: Other (diabetic foot infection)
Subjective / Review of Systems
afebrile
bp stable
hgb 11, plt normal
L shift resolved
Cr now improving
OR culture few GBS and few s aureus
note cardiology rec for aggressive diuresis
Vital Signs / Physical Exam
Vital Signs
Vital Signs
Temp Pulse Resp BP Pulse Ox
97.9 F 81 18 157/53 97
12/09/23 10:17 12/09/23 10:17 12/09/23 10:17 12/09/23 10:17 12/09/23 10:17
Physical Exam
Constitutional: No Acute Distress
Cardiovascular: Regular Rate, S1/S2 and Murmur; Negative Rub
Pulmonary: Clear and Symmetric; Negative Wheezes or Rales
Gastrointestinal: Soft, Non Tender, Non Distended and Normal Bowel Sounds
Skin: Warm and Dry; Negative Rash or Jaundice
Neurological: Awake
Objective Data
Lab Data
Lab Results
12/09/23 06:29
12/09/23 06:29
ESR 105 mm/hour (0-20) H 12/06/23 00:52
Estimated Creat Clear 21 ml/min 12/09/23 06:29
Lactic Acid 1.2 mmol/L (0.7-2.0) 12/06/23 00:52
Total Bilirubin 0.6 mg/dl (0.2-1.3) 12/09/23 06:29
AST 36 U/L (14-36) 12/09/23 06:29
ALT 33 U/L (0-35) 12/09/23 06:29
Alkaline Phosphatase 478 U/L (38-126) H 12/09/23 06:29
C-Reactive Protein 223.70 mg/L (0.0-10.00) H 12/06/23 00:52
Most recent labs reviewed.
Micro Results:
12/07/23 16:14 Wound Culture - Preliminary
Foot - Right Streptococcus agalactiae
Staphylococcus aureus
Gram Stain - Preliminary
12/06/23 03:26 Blood Culture - Preliminary
Blood/Venous No Growth in 72 hours- Final report to follow
12/06/23 00:51 Blood Culture - Preliminary
Blood/Venous No Growth in 72 hours- Final report to follow
12/07/23 16:14 Anaerobic Culture - Preliminary
Foot - Right Culture pending. Anaerobic cultures are examined after 3
days incubation. Additional information to follow.
12/06/23 22:32 MRSA Screen - Final
Nose No Methicillin Resistant Staphylococcus aureus isolated.
Care Review
Plan reviewed with: Physician (podiatry - culture)
--- NOTE | 2023-12-09 12:43 | W.PN.NEPH.PH ---
Today's Communication / Plan
-
lasix
Assessment/Plan
-
IMP:
Diabetic Foot Infection Right Foot, right 5th toe amputation
Sepsis secondary to the above
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
MARYLOU with CKD stage 4
hyponatremia
Acute on chr anemia
A gap met acidosis
ASCVD
Multiple prior CVAs. LINQ recorder recommended; however, patient declined.
Chronic HFpEF
Congenital heart surgery as a child, no records available
Moderate , AR, mild to mod MS
Guillain [place] syndrome, with chronic LLE weakness
Plan:
Lasix 40mg IV BID
follow BMP
continue bicarbonate
prognosis is guarded terminologist
-
-
Date of Service: December 09, 2023
CC / HPI / ROS
-
Chief Complaint:
MARYLOU with CKD
History of Present Illness:
MARYLOU/Cr down to 3.2
Na stable 131
s/p RHC 6/5. PCWP 47
Hgb low 6.8
Review of Systems:
no cp or sob at rest on RA
feels well today
Labs
-
Labs:
WBC 11.2 10^3/uL (4.8-10.8) H 12/09/23 06:29
RBC 3.09 10^6/uL (4.20-5.40) L 12/09/23 06:29
Hgb 6.8 g/dL (12.0-16.0) L* 12/09/23 06:
Hct 21.0 % (37.0-47.0) L 12/09/23 06:29
Plt Count 354 10^3/uL (130-400) 12/09/23 06:
Sodium 131 mmol/L (135-145) L 12/09/23 06:29
Potassium 4.7 mmol/L (3.5-5.1) 12/09/23 06:29
Chloride 103 mmol/L (98-107) 12/09/23 06:29
Carbon Dioxide 17 mmol/L (22-30) L 12/09/23 06:29
BUN 86 mg/dl (7-17) H 12/09/23 06:29
Creatinine 3.2 mg/dL (0.6-1.0) H 12/09/23 06:29
eGFR 17.21 12/09/23 06:29
Glucose 61 mg/dl (70-99) L 12/09/23 06:29
Calcium 8.9 mg/dl (8.4-10.2) 12/09/23 06:29
Shc-L-Tyulzzraimu Pept 16291 pg/ml 12/08/23 08:30
Albumin 2.8 g/dl (3.5-5.0) L 12/09/23 06:29
Physical Exam
-
Vital Signs:
Vital Signs
Temp Pulse Resp BP Pulse Ox
97.9 F 81 18 157/53 97
12/09/23 10:17 12/09/23 10:17 12/09/23 10:17 12/09/23 10:17 12/09/23 10:17
Cardiovascular:: Regular rate and rhythm
Respiratory:: Bilateral: Coarse
Lung Excursion:: Normal
Abdomen:: Nontender and Soft
Bowel Sounds:: Normal
Extremity Edema:: +2: Bilateral:
[2023-12-09 14:16] LABS: Glucose - Point of Care 92 mg/dl (70-99)
[2023-12-09] MEDS: NOVOLOG FLEXPEN-LOW RESISTANCE SC ×2 (14:20→18:54)
[2023-12-09] MEDS: FERRLECIT 110 MG IV (14:21)
--- NOTE | 2023-12-09 15:26 | W.PN.HOSP.TC ---
Today's Communication/Plan
-
Transfuse PRBC
Continue diuresis
Cardiac cath results noted
Continue Vancomycin
Assessment / Plan
Assessment / Plan
Physical Exam
General: Well Developed, Well Nourished and No Apparent Distress
HEENT: Normocephalic, Atraumatic and Moist Mucous Membranes
Respiratory: Clear to Auscultation Bilaterally
Cardiac: Regular Rhythm and S1/S2
GI: Soft, Nontender and Nondistended. Positive bowel sounds.
Skin: Right foot wrapped in dressing
Neuro: Awake, Alert and Oriented

Assessment/Plan
Patient is a 48 y/o female with past medical history significant for HTN, DM-II, multiple prior CVAs and valvular heart disease who presents to ED complaining of pain, swelling and skin changes of the R foot / 5th toe.
Diabetic Foot Infection Right Foot/Right 5th toe gangrene status post Right 5th toe amputation and left open for secondary intention healing
with cellulitic changes up to mid palomo
Sepsis secondary to the above
- Patient presented with leukocytosis and tachycardia with evident R foot infection.
- R 5th toe essentially degloved. X-ray without evident bony involvement - would check MR for further evaluation.
- Note significant elevations in ESR 105 / CRP 223.7 which may support osteomyelitis.
- IV Zosyn stopped. ID consulted, recommendations appreciated
- Completed Meropenem.
- Continue Vancomycin.
- Podiatry evaluation for further recommendations/status post right 5th toe amputation
- Follow for clinical improvement.
- Possible angiogram tomorrow with vascular surgery
DM-I
onset age 12
- Diabetes BAG BUILDER consulted, recommendations appreciated
- Continue premeal and Long-acting Insulin as ordered -- being reduced as patient eating less and with lower glucose readings
- Continue accuchecks
Acute On Chronic Anemia
-PRBCs ordered on 12/09/23
-Recheck CBC
-IV iron as ordered by nephrology
MARYLOU on CKD III
Anuria
metabolic Acidosis
- Creatinine worsened, but no improving
- Consulted Nephrology on 12/07/23 given worsening renal function, along with acidosis and hyponatremia
- Bicarb ordered
- Avoid nephrotoxins, dose antibiotics renally
ASCVD
- Multiple prior CVAs. LINQ recorder recommended; however, patient declined.
- Continue daily ASA. Will hold Plavix acutely in the event that surgical intervention is needed.
- Continue statin, BP control, etc.
- Monitor on telemetry for now.
- Follow for any new symptoms / complaints.
Aortic Stenosis
Mitral Stenosis
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
Chronic HFpEF
Severely elevated filling pressures
Severe Pulmonary Hypertension
- Cardiac cath on 12/09/23 showed severely elevated filling pressures and severe pulmonary HTN
- Continue Lasix
- Follow daily weights, I/Os, etc.
DVT Prophylaxis: Heparin Subq
Code Status: Full
Anticipated Discharge: > 48 hours
Subjective/Interval History
-
Date of Service: December 09, 2023
Patient was seen and examined after her cardiac cath procedure this morning. She reported no new significant symptoms or complaints.
Objective Data
-
Labs:
Laboratory Results
12/09/23
06:29
WBC 11.2 H
Hgb 6.8 L*
Hct 21.0 L
Plt Count 354
Sodium 131 L
Potassium 4.7
Chloride 103
Carbon Dioxide 17 L
BUN 86 H
Creatinine 3.2 H
Glucose 61 L
Calcium 8.9
Total Bilirubin 0.6
AST 36
ALT 33
Alkaline Phosphatase 478 H
Vital Signs:
Vital Signs
Temp Pulse Resp BP Pulse Ox
97.9 F 92 18 161/57 97
12/09/23 10:17 12/09/23 11:00 12/09/23 11:00 12/09/23 11:00 12/09/23 11:00
I&O
12/08/23 12/09/23 12/10/23
06:59 06:59 06:59
Intake Total 25 / 960 / 960
Output Total 450 / 450 900 / 900
Balance -425 / -425 60 / 60
[2023-12-09] MEDS: LASIX 40 MG IV (16:57)
[2023-12-09] MEDS: LIPITOR 80 MG PO (16:59)
[2023-12-09 17:41] LABS: Glucose - Point of Care 80 mg/dl (70-99)
[2023-12-09] MEDS: NOVOLOG FLEXPEN 3 UNITS SC (18:56)
--- NOTE | 2023-12-09 19:43 | W.PN.UPDATE ---
Addendum entered and electronically signed by NILDA Rosado 12/09/23 22:00:
Patient requested to see BOX BLANK MACHINE FEEDER as she needed clarification regarding the order to start the Bumex drip from the nephrology standpoint. Patient seen and addressed the importance of diuresing at present due to severely elevated filling pressures and
severe pulmonary hypertension and that the Staff Electronic Warfare Officer is aware as well. Patient agrees and will start the Bumex drip.
Original Note:
Update Note
Progress Note Update
Dr. Castillo request to start Bumex 1mg/hr drip per text from Windscreen Fitter due to has severely elevated filling pressures and severe pulmonary hypertension related to these pressure. IV Lasix d/c'd. Labs BMP, Mag ordered for MN. Placed on
Telemonitor. RN made aware.
[2023-12-09] MEDS: HEPARIN 5000 UNITS SC (20:32)
[2023-12-09] MEDS: BUMEX 50 IV (20:58)
[2023-12-09 22:42] LABS: Glucose - Point of Care 116 mg/dl (70-99)
[2023-12-09] MEDS: LANTUS 0.119999999999999996 UNITS SC (23:23)
[2023-12-09] MEDS: DILAUDID 0.5 MG IV (23:31)
[2023-12-10] VITALS (8 sets, daily range): BP systolic 135–188; BP diastolic 65–87; BMI 29.6
[2023-12-10 01:12] LABS: Mean Corp Hgb Conc. 34.2 g/dL (33.0-37.0); Mean Corpuscular Volume 67.4 fL (81.0-99.0); Mean Platelet Volume 9.1 fL (7.4-10.4); Platelet Count 378 10^3/uL (130-400); Red Blood Cell Count 3.56 10^6/uL (4.20-5.40); Red Cell Dist. Width 16.9 % (11.5-14.5); White Blood Cell Count 12.1 10^3/uL (4.8-10.8)
[2023-12-10 01:14] LABS: Hemoglobin 8.2 g/dL (12.0-16.0)
[2023-12-10 02:05] LABS: Carbon Dioxide 20 mmol/L (22-30); Estimated Creatinine Clearance 31 ml/min; Magnesium 2.4 mg/dl (1.6-2.3); eGFR 26.98
[2023-12-10 02:26] LABS: Blood Urea Nitrogen 87 mg/dl (7-17); Chloride 106 mmol/L (98-107); Glucose 96 mg/dl (70-99); Potassium 4.5 mmol/L (3.5-5.1); Sodium 136 mmol/L (135-145)
[2023-12-10] MEDS: COMPAZINE 5 MG IV (03:21)
[2023-12-10] MEDS: SENOKOT 8.59999999999999964 MG PO (03:45)
[2023-12-10] MEDS: BUMEX 50 IV ×2 (04:25→17:51)
[2023-12-10 06:02] LABS: Complement C3 127 mg/dl (88-165)
--- NOTE | 2023-12-10 07:31 | PN.DE.MGMTRT ---
Insulin Management
- -
12/10/2023: Diabetes Management Consult Follow up
Patient admitted with Right fifth toe discoloration, open wound.
PMH: CAD(CABG 1981), CKD, CVA x2, HTN, Retinopathy, CHF and T2DM. A1C 9.2%, Cr 3.0 eGFR 18.59, was taking Lantus 18-20 units @ HS and Lispro 4 units AC.
Patient is awake, alert and oriented. Patient states she was diagnosed with diabetes at age 12 and started insulin at age 13. She states her A1C is greatly improved. She has a glucose monitor and tests daily.
POD 3 s/p amputation R 5th toe.
12/08 Fasting glucose 61, HS lantus reduced to 12, AC novolog reduced to 3 units with low corrective. Glucose range 80 to 116. Will make no change to current regimen.
Will follow.
Diabetes History
- -
Type of Diabetes: 2 requiring insulin
Pre-Admission Diabetes Regimen
12/09/23 12/10/23
06: 01:08
Creatinine 3.2 H 2.2 H
Lab Results
Hemoglobin A1c 9.2 % (4.0-5.6) H 12/06/23 08:12
Insulin Pump Settings
IP Diabetes Regimen
12/09/23 12/09/23 12/09/23
06:29 10:13 10:33
Glucose 61 L
POC Glucose 62 L 81
12/09/23 12/09/23 12/09/23
14:15 17:40 22:30
Glucose
POC Glucose 92 80 116 H
12/10/23
01:08
Glucose 96
POC Glucose
Meal type: Lunch
Amount consumed: 100%
Patient Education
[2023-12-10 08:30] LABS: Glucose - Point of Care 99 mg/dl (70-99)
[2023-12-10 08:36] LABS: % Basophils 0.6 % (0-2); % Eosinophils 0.9 % (0-6); % Lymphocytes 12.3 % (20.5-51.1); % Monocytes 6.9 % (1.7-9.3); % Neutrophils 77.3 % (42.2-75.2); Absolute Basophils 0.1 10^3/uL (0-0.2); Absolute Eosinophils 0.1 10^3/uL (0-0.7); Absolute Immature Granulocytes 0.3 10^3/uL (0-0.05); Absolute Lymphocytes 1.7 10^3/uL (1.2-3.4); Absolute Neutrophils 10.7 10^3/uL (1.4-6.5); Hematocrit 26.8 % (37.0-47.0); Hemoglobin 8.5 g/dL (12.0-16.0); Mean Corp Hgb Conc. 31.7 g/dL (33.0-37.0); Mean Corpuscular Hgb 22.4 pg (27.0-31.0); Mean Corpuscular Volume 70.7 fL (81.0-99.0); Mean Platelet Volume 9.4 fL (7.4-10.4); Nucleated Red Blood Cells % 0 %; Platelet Count 418 10^3/uL (130-400); Red Blood Cell Count 3.79 10^6/uL (4.20-5.40); Red Cell Dist. Width 16.7 % (11.5-14.5); White Blood Cell Count 13.9 10^3/uL (4.8-10.8)
[2023-12-10] MEDS: NOVOLOG FLEXPEN-LOW RESISTANCE SC ×3 (08:36→17:50)
[2023-12-10 09:01] LABS: ALT (SGPT) 36 U/L (0-35); AST (SGOT) 42 U/L (14-36); Albumin 3.1 g/dl (3.5-5.0); Alkaline Phosphatase 536 U/L (38-126); Blood Urea Nitrogen 84 mg/dl (7-17); Calcium 9.2 mg/dl (8.4-10.2); Carbon Dioxide 19 mmol/L (22-30); Chloride 104 mmol/L (98-107); Estimated Creatinine Clearance 30 ml/min; Glucose 88 mg/dl (70-99); Magnesium 2.3 mg/dl (1.6-2.3); Potassium 4.5 mmol/L (3.5-5.1); Sodium 137 mmol/L (135-145); Total Protein 6.7 g/dl (6.3-8.2); eGFR 26.98
[2023-12-10] MEDS: ASPIR LOW (ENTERIC COATED) 81 MG PO (09:20)
[2023-12-10] MEDS: TYLENOL 650 MG PO (09:20)
[2023-12-10] MEDS: SODIUM BICARBONATE 1300 MG PO ×3 (09:20→22:19)
[2023-12-10] MEDS: COLACE 100 MG PO (09:20)
[2023-12-10] MEDS: HEPARIN 5000 UNITS SC ×2 (09:21→20:25)
[2023-12-10] MEDS: NOVOLOG FLEXPEN SC (09:24)
--- NOTE | 2023-12-10 11:54 | W.PN.CD ---
Today's Communication / Plan
-
Continue IV diuresis
56 min spent on patient care today. Time wt pt, time reviewing records, time discussing case with Dr. Whitmore, time communicating with nurse and other docs, and finally preparing this document
Impression / Plan
-
SEVERE ACUTE ON CHRONIC HFpEF, (PCWP 47 at 77 kg on 12/09/2023)
-Volume overloaded on exam
-Now on IV Bumex drip
-She feels much better!!!
-Trend daily weight, I/O, and BMP with diuresis
-ONCE IV diuresis improves status we can consider adjusting meds towards GDMT for HFpEF
Congenital heart surgery as a child, no records available=> we did ask for records to be obtained
Mixed valvular heart disease: /AR/MS (calcific)/MR/pulm HTN
Cardiac risk Right 5th toe amputation performed on 12/07/2023
-No cardiac complications detected from surgery yesterday
Sepsis in the setting of right 5th toe infection in a diabetic patient
PAD, vascular surgery involved
- Pt may progress to angiogram this admit
Chronic kidney disease with MARYLOU => MIXED ETIOLOGY
- improved with diuresis
Anemia, appears chronic, Hgb 7.3 and now less than 7 => medicine will transfuse.
- Old iron studies concerning for iron deficiency => transfused and getting IV iron
Type I vs 2 DM, uncontrolled, Hgba1c 9.6%, per primary => multiple complications
- Pt hopes not to take SGLT2-I in future.
- She thinks she has type II DM, we generally do not use SGLT2-I in type I DM
Prior CVA, refused LINQ
Guillain [place] syndrome, with chronic LLE weakness
Subjective:
No CP or dyspnea at rest.
Right heart cath 12/09/2023:
Weight (kg):77.1
PA (s/d/x mmHg): 99/31/54
PCWP (a/v/x mmHg): 55/64/47
RV (s/x mmHg): 100/17
RA (a/v/x mmHg):
Echo 12/08/2023:
CONCLUSIONS
Left ventricle is small in size.
Hyperdynamic left ventricular systolic function.
Stage II diastolic dysfunction suggestive of abnormal relaxation and increased
filling pressures.
Dense mitral annular calcification.
Mild to moderate mitral stenosis (calcific in nature with the dense MAC. The
anterior MV leaflet moves normally).
Mild mitral regurgitation.
Thickened aortic valve with restricted leaflet motion.
Moderate aortic stenosis.
Moderate aortic regurgitation.
Mild tricuspid regurgitation.
Estimated PASP 60-65 mmHg.
No significant change since the prior study of 04/07/2023.
The nature of her congenital heart disease and congenital heart surgery at age
5 is unknown. She reports correction of a blockage near her aorta or aortic
valve.
Physical Exam
Vital Signs/Labs
Vital Signs
Temp Pulse Resp BP Pulse Ox
98.6 F 92 18 169/69 100
12/10/23 07:00 12/10/23 07:00 12/10/23 07:00 12/10/23 07:00 12/10/23 07:00
12/09/23 12/10/23 12/11/23
06:59 06:59 06:59
Actual Weight 77.281 kg 75.835 kg
12/10/23 07:55
12/10/23 07:55
Magnesium 2.3 mg/dl (1.6-2.3) 12/10/23 07:55
12/08/23
08:30
Mkl-G-Eajbvghwpbx Pept [id number]
Physical Exam
Constitutional: No acute distress
EENT: Anicteric
Cardiovascular: Rhythm & rate is regular and Pedal edema present (improved!!!)
Respiratory: Respiratory effort normal and Lungs clear to auscul.
GI: Soft and Distention absent
Data Reviewed
-
Date of Service: December 10, 2023
--- NOTE | 2023-12-10 12:05 | W.PN.NEPH.PH ---
Today's Communication / Plan
-
diurese
Assessment/Plan
-
IMP:
Diabetic Foot Infection Right Foot, right 5th toe amputation
Sepsis secondary to the above
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
MARYLOU with CKD stage 4
hyponatremia
Acute on chr anemia
A gap met acidosis
ASCVD
Multiple prior CVAs. LINQ recorder recommended; however, patient declined.
Chronic HFpEF
Congenital heart surgery as a child, no records available
Moderate , AR, mild to mod MS
Guillain [place] syndrome, with chronic LLE weakness
Plan:
continue Bumex gtt
follow BMP
continue bicarbonate
prognosis is guarded joint terminal attack controller
-
-
Date of Service: December 10, 2023
CC / HPI / ROS
-
Chief Complaint:
MARYLOU with CKD
History of Present Illness:
MARYLOU/Cr down to 2.2
Na normal now
s/p RHC 6/5. PCWP 47
Hgb up to 8.5
Review of Systems:
no cp or sob
aches all over
Labs
-
Labs:
WBC 13.9 10^3/uL (4.8-10.8) H 12/10/23 07:55
RBC 3.79 10^6/uL (4.20-5.40) L 12/10/23 07:55
Hgb 8.5 g/dL (12.0-16.0) L 12/10/23 07:55
Hct 26.8 % (37.0-47.0) L 12/10/23 07:55
Plt Count 418 10^3/uL (130-400) H 12/10/23 07:55
Sodium 137 mmol/L (135-145) 12/10/23 07:55
Potassium 4.5 mmol/L (3.5-5.1) 12/10/23 07:55
Chloride 104 mmol/L (98-107) 12/10/23 07:55
Carbon Dioxide 19 mmol/L (22-30) L 12/10/23 07:55
BUN 84 mg/dl (7-17) H 12/10/23 07:55
Creatinine 2.2 mg/dL (0.6-1.0) H 12/10/23 07:55
eGFR 26.98 12/10/23 07:55
Glucose 88 mg/dl (70-99) 12/10/23 07:55
Calcium 9.2 mg/dl (8.4-10.2) 12/10/23 07:55
Xuq-I-Vdlzsjecxvz Pept 47432 pg/ml 12/08/23 08:30
Albumin 3.1 g/dl (3.5-5.0) L 12/10/23 07:55
Physical Exam
-
Vital Signs:
Vital Signs
Temp Pulse Resp BP Pulse Ox
98.6 F 92 18 169/69 100
12/10/23 07:00 12/10/23 07:00 12/10/23 07:00 12/10/23 07:00 12/10/23 07:00
Cardiovascular:: Regular rate and rhythm
Respiratory:: Bilateral: Coarse
Lung Excursion:: Normal
Abdomen:: Nontender and Soft
Bowel Sounds:: Normal
Extremity Edema:: +2: Bilateral:
[2023-12-10 12:48] LABS: Glucose - Point of Care 85 mg/dl (70-99)
[2023-12-10] MEDS: TYLENOL 1000 MG PO ×2 (12:57→20:21)
[2023-12-10] MEDS: NOVOLOG FLEXPEN 3 UNITS SC ×2 (12:58→17:54)
[2023-12-10] MEDS: FERRLECIT 110 MG IV (12:58)
--- NOTE | 2023-12-10 15:07 | CM ---
Patient seen bedside.
patient sitting in chair.
Continues on IV Bumex.
PT recommending home health when stable.
Plan home with possible VN
--- NOTE | 2023-12-10 15:18 | W.PN.HOSP.TC ---
Today's Communication/Plan
-
Renal function improving
Continue Bumex and bicarb
Continue antibiotics
Assessment / Plan
Assessment / Plan
Physical Exam
General: Well Developed, Well Nourished and No Apparent Distress
HEENT: Normocephalic, Atraumatic and Moist Mucous Membranes
Respiratory: Clear to Auscultation Bilaterally
Cardiac: Regular Rhythm and S1/S2
GI: Soft, Nontender and Nondistended. Positive bowel sounds.
Skin: Right foot wrapped in dressing
Neuro: Awake, Alert and Oriented

Assessment/Plan
Patient is a 48 y/o female with past medical history significant for HTN, DM-II, multiple prior CVAs and valvular heart disease who presents to ED complaining of pain, swelling and skin changes of the R foot / 5th toe.
Aortic Stenosis
Mitral Stenosis
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
SEVERE ACUTE ON CHRONIC HFpEF, (PCWP 47 at 77 kg on 12/09/2023)
Severely elevated filling pressures
Severe Pulmonary Hypertension
- Cardiac cath on 12/09/23 showed severely elevated filling pressures and severe pulmonary HTN
- Stopped Lasix on 12/09/23
- Bumex started on 12/09/23 with great improvements in creatinine and patient feels better from this as well
- Follow daily weights, I/Os, etc.
- Continue IV diuresis -- and with improvement in status, can consider adjusting meds towards GDMT for HFpEF
Diabetic Foot Infection Right Foot/Right 5th toe gangrene status post Right 5th toe amputation and left open for secondary intention healing
with cellulitic changes up to mid palomo
Sepsis secondary to the above
- Patient presented with leukocytosis and tachycardia with evident R foot infection.
- R 5th toe essentially degloved. X-ray without evident bony involvement - would check MR for further evaluation.
- Note significant elevations in ESR 105 / CRP 223.7 which may support osteomyelitis.
- IV Zosyn stopped. ID consulted, recommendations appreciated
- Completed Meropenem.
- Continue Vancomycin.
- Podiatry evaluation for further recommendations/status post right 5th toe amputation
- Follow for clinical improvement.
- Possible angiogram this admission with improvement in renal function
DM-I
onset age 12
- Diabetes SEWER PIPE PRESS OPERATOR consulted, recommendations appreciated
- Continue premeal and Long-acting Insulin as ordered -- doses were recently reduced as patient was eating less and with lower glucose readings
- Continue accuchecks
Acute On Chronic Anemia
-PRBCs ordered on 12/09/23 with good improvement
-Recheck CBC
-IV iron as ordered by nephrology
MARYLOU on CKD III
Anuria
metabolic Acidosis
- Creatinine worsened, but no improving
- Consulted Nephrology on 12/07/23 given worsening renal function, along with acidosis and hyponatremia
- Bicarb ordered
- Avoid nephrotoxins, dose antibiotics renally
ASCVD
- Multiple prior CVAs. LINQ recorder recommended; however, patient declined.
- Continue daily ASA. Will hold Plavix acutely in the event that surgical intervention is needed.
- Continue statin, BP control, etc.
- Monitor on telemetry for now.
- Follow for any new symptoms / complaints.
Guillain [place] syndrome, with chronic LLE weakness
DVT Prophylaxis: Heparin Subq
Code Status: Full
Anticipated Discharge: > 48 hours
Subjective/Interval History
-
Date of Service: December 10, 2023
Patient was seen and examined. She reported feeling sore all over, but denied any chest pain or shortness of breath.
Objective Data
-
Labs:
Laboratory Results
12/10/23 12/10/23
07:55 16:00
WBC 13.9 H
Hgb 8.5 L
Hct 26.8 L
Plt Count 418 H
Sodium 137 Pending
Potassium 4.5 Pending
Chloride 104 Pending
Carbon Dioxide 19 L Pending
BUN 84 H Pending
Creatinine 2.2 H Pending
Glucose 88 Pending
Calcium 9.2 Pending
Total Bilirubin 1.0
AST 42 H
ALT 36 H
Alkaline Phosphatase 536 H
Vital Signs:
Vital Signs
Temp Pulse Resp BP Pulse Ox
98.2 F 98 20 188/87 98
12/10/23 12:51 12/10/23 12:51 12/10/23 12:51 12/10/23 12:51 12/10/23 12:51
I&O
12/09/23 12/10/23 12/11/23
06:59 06:59 06:59
Intake Total 960 / 960 710 / 710
Output Total 900 / 900 2000 / 1999
Balance 60 / 60 -1290 / -1290
--- NOTE | 2023-12-10 15:22 | PHA.VAN.FU ---
Vancomycin Assessment / Plan
- Assessment
Renal Function: Stable
WBC's are: Trending Down
In the past 24 hrs, patient has been: Afebrile
- Assessment - Therapeutic Drug Monitoring
Random Level: 12
- Dosing Plan
Continue: TO DOSE BY LEVEL
Dosing by Level: Re-dose today (750 mg)
- Monitoring Plan
Random Level: 6/7 am
- Follow Up
Pharmacy will continue to follow.
Vancomycin Follow UP
- -
Patient Age: 48
Patient Sex: Female
Vancomycin Day #: 5
Indication: Diabetic Foot
Requesting Provider: Oscar / Kenan
Pertinent Antimicrobial Allergies:
no pertinent antimicrobial allergies
Height / Weight:
Height 5 ft 3 in
Actual Weight 75.835 kg
Pertinent Past Medical History: BMI ~30, DM, CKD III
- Vital Signs / Lab Results
Temp Pulse Resp BP Pulse Ox
98.2 F 98 20 188/87 98
12/10/23 12:51 12/10/23 12:51 12/10/23 12:51 12/10/23 12:51 12/10/23 12:51
Lab Results - Hematology
12/08/23 12/09/23 12/10/23
08:30 06:29 01:08
WBC 17.3 H 11.2 H 12.1 H
12/10/23
07:55
WBC 13.9 H
Lab Results - Chemistry
12/08/23 12/09/23 12/10/23
08:30 06:29 01:08
BUN 85 H 86 H 87 H
Creatinine 3.5 H 3.2 H 2.2 H
Estimated Creat Clear 19 21 31
Albumin 3.0 L 2.8 L
12/10/23
07:55
BUN 84 H
Creatinine 2.2 H
Estimated Creat Clear 30
Albumin 3.1 L
Microbiology Results
12/07/23 16:14 Anaerobic Culture - Preliminary
Foot - Right Culture pending. Anaerobic cultures are examined after 3
days incubation. Additional information to follow.
12/07/23 16:14 Wound Culture - Preliminary
Foot - Right S aureus-Methicillin Sensitive
Streptococcus agalactiae
Gram Stain - Preliminary
12/06/23 03:26 Blood Culture - Preliminary
Blood/Venous No Growth in 4 days- Final report to follow
12/06/23 00:51 Blood Culture - Preliminary
Blood/Venous No Growth in 4 days- Final report to follow
Therapeutic Drug Monitoring
Random Vancomycin 12.0 ug/ml 12/10/23 07:55
[2023-12-10] MEDS: VANCOCIN 150 IV (16:56)
[2023-12-10] MEDS: LIPITOR 80 MG PO (16:57)
--- NOTE | 2023-12-10 17:00 | W.PN.POD ---
Today's Communication
Today's Communication
Pending vascular work up- angiogram
Assessment / Plan
-
Rt foot S/p 5th toe amputation POD #3
Rt foot cellulitis.
Diabetic small vessel disease.
PAD
Diabetic neuropathy.
Plan ; Changed surgical dressings to Rt foot.
IV abx per ID
Pt to use surgical shoe to Rt heel wt bear only.
Possible angiogram per vascular surgery when renal function is optimized. Angiogram may give more details on her perfusion and further planning on further debridement depending on the extent of the disease
Subjective
Chief Complaint
Rt 5th toe gangrene
Subjective
Patient seen at bedside, doing fine, no new pedal complaints offered. Denies any Rt foot pain, no calf pain no fever, chills. Slight strike through bleeding noted
Objective
Temp Pulse Resp BP Pulse Ox
98.2 F 98 20 188/87 98
12/10/23 12:51 12/10/23 12:51 12/10/23 12:51 12/10/23 12:51 12/10/23 12:51
12/10/23 07:55
Vital Signs and Lab results were reviewed
Rt foot edematous Rt 5th toe amputation site has some serous drainage, has pale deep tissues at the amputation site, no purulence, no drainage, no foul odor noted . no bleeding noted
forefoot area around the bases of the digits with paler appearance, some dry necrotic skin edges at the lateral foot
[2023-12-10 17:47] LABS: Glucose - Point of Care 129 mg/dl (70-99)
[2023-12-10] MEDS: COLACE PO (20:26)
[2023-12-10 20:45] LABS: Blood Urea Nitrogen 83 mg/dl (7-17); Carbon Dioxide 25 mmol/L (22-30); Chloride 103 mmol/L (98-107); Estimated Creatinine Clearance 37 ml/min; Glucose 124 mg/dl (70-99); Magnesium 2.1 mg/dl (1.6-2.3); Potassium 4.1 mmol/L (3.5-5.1); Sodium 137 mmol/L (135-145); eGFR 34.32
[2023-12-10 21:23] LABS: Glucose - Point of Care 173 mg/dl (70-99)
[2023-12-10] MEDS: LANTUS 0.119999999999999996 UNITS SC (22:19)
[2023-12-11] VITALS (8 sets, daily range): BP systolic 129–186; BP diastolic 55–77; BMI 28.9
[2023-12-11 02:57] LABS: Blood Urea Nitrogen 83 mg/dl (7-17); Calcium 8.8 mg/dl (8.4-10.2); Carbon Dioxide 24 mmol/L (22-30); Chloride 104 mmol/L (98-107); Estimated Creatinine Clearance 34 ml/min; Glucose 138 mg/dl (70-99); Magnesium 2.1 mg/dl (1.6-2.3); Potassium 4.1 mmol/L (3.5-5.1); Sodium 137 mmol/L (135-145); eGFR 30.25
[2023-12-11] MEDS: TYLENOL 1000 MG PO ×3 (03:53→19:18)
[2023-12-11] MEDS: BUMEX 50 IV ×2 (06:16→19:15)
--- NOTE | 2023-12-11 07:40 | PN.DE.MGMTRT ---
Insulin Management
- -
12/11/2023: Diabetes Management F/U:
Patient admitted with Right fifth toe discoloration, open wound.
PMH: CAD(CABG 1981), CKD, CVA x2, HTN, Retinopathy, CHF and T2DM. A1C 9.2%, Cr 3.0 eGFR 18.59, was taking Lantus 18-20 units @ HS and Lispro 4 units AC. Patient states she was diagnosed with diabetes at age 12 and started insulin at age 13. She
states her A1C is greatly improved. She has a glucose monitor and tests daily.
Patient is awake, alert and oriented, offers no complaints, able to discuss diabetes management.
POD #4 s/p Right 5th toe amputation.
On 12/08 pt's Fasting glucose was 61, HS Lantus was reduced to 12 and AC NovoLog reduced to 3 units with low corrective.
Glucose remains stable and in range of 85 to 129. Will make no change to current regimen.
Cont: Lantus 12 units @ HS, AC NovoLog 3 units with low corrective.
Will follow.
Diabetes History
- -
Type of Diabetes: 2 requiring insulin
Pre-Admission Diabetes Regimen
12/10/23 12/10/23 12/11/23
07:55 20:19 01:50
Creatinine 2.2 H 1.8 H 2.0 H
Lab Results
Hemoglobin A1c 9.2 % (4.0-5.6) H 12/06/23 08:12
Insulin Pump Settings
IP Diabetes Regimen
12/10/23 12/10/23 12/10/23
07:55 08:28 12:46
Glucose 88
POC Glucose 99 85
12/10/23 12/10/23 12/10/23
17:45 20:19 21:17
Glucose 124 H
POC Glucose 129 H 173 H
12/11/23
01:50
Glucose 138 H
POC Glucose
Meal type: Dinner
Meal type: Lunch
Meal type: Breakfast
Amount consumed: 100%
Amount consumed: 100%
Amount consumed: 100%
Patient Education
[2023-12-11 08:23] LABS: Glucose - Point of Care 118 mg/dl (70-99)
[2023-12-11 08:28] LABS: % Basophils 0.8 % (0-2); % Lymphocytes 10.8 % (20.5-51.1); % Monocytes 9.7 % (1.7-9.3); % Neutrophils 74.7 % (42.2-75.2); Absolute Basophils 0.1 10^3/uL (0-0.2); Absolute Eosinophils 0.3 10^3/uL (0-0.7); Absolute Immature Granulocytes 0.3 10^3/uL (0-0.05); Absolute Lymphocytes 1.4 10^3/uL (1.2-3.4); Absolute Monocytes 1.3 10^3/uL (0.1-0.6); Absolute Neutrophils 9.9 10^3/uL (1.4-6.5); Hematocrit 26.3 % (37.0-47.0); Hemoglobin 8.8 g/dL (12.0-16.0); Mean Corp Hgb Conc. 33.5 g/dL (33.0-37.0); Mean Corpuscular Hgb 22.9 pg (27.0-31.0); Mean Corpuscular Volume 68.3 fL (81.0-99.0); Nucleated Red Blood Cells % 0.2 %; Platelet Count 387 10^3/uL (130-400); Red Blood Cell Count 3.85 10^6/uL (4.20-5.40); Red Cell Dist. Width 17.3 % (11.5-14.5); White Blood Cell Count 13.3 10^3/uL (4.8-10.8)
[2023-12-11 08:41] LABS: Vancomycin Random 16.5 ug/ml
[2023-12-11 09:07] LABS: ALT (SGPT) 33 U/L (0-35); AST (SGOT) 40 U/L (14-36); Alkaline Phosphatase 479 U/L (38-126); Blood Urea Nitrogen 82 mg/dl (7-17); Carbon Dioxide 22 mmol/L (22-30); Chloride 107 mmol/L (98-107); Estimated Creatinine Clearance 35 ml/min; Glucose 101 mg/dl (70-99); Magnesium 2.3 mg/dl (1.6-2.3); Potassium 4.2 mmol/L (3.5-5.1); Sodium 139 mmol/L (135-145); Total Bilirubin 0.5 mg/dl (0.2-1.3); Total Protein 6.7 g/dl (6.3-8.2); eGFR 32.17
[2023-12-11] MEDS: ASPIR LOW (ENTERIC COATED) 81 MG PO (09:24)
[2023-12-11] MEDS: HEPARIN 5000 UNITS SC ×2 (09:24→19:18)
[2023-12-11] MEDS: SODIUM BICARBONATE 1300 MG PO ×3 (09:24→21:46)
[2023-12-11] MEDS: COLACE PO ×2 (09:25→19:18)
[2023-12-11] MEDS: NOVOLOG FLEXPEN SC ×2 (09:26→12:31)
[2023-12-11] MEDS: NOVOLOG FLEXPEN-LOW RESISTANCE SC ×3 (09:26→17:31)
--- NOTE | 2023-12-11 09:35 | W.PN.CD ---
Today's Communication / Plan
-
continue bumex drip
Impression / Plan
-
SEVERE ACUTE ON CHRONIC HFpEF, (PCWP 47 at 77 kg on 12/09/2023)
-weight is coming down: unclear dry weight
-continue bumex drip with close monitoring of labs and tele
-CKD3b may be baseline
-if Cr remains stable as we diurese, we can assess to add SGLTi before d/c
-I discussed with patient that she will need a standing diuretic at home
Mixed valvular heart disease
-moderate , moderate/severe AR, mild/moderate MS
-I told her she will likely need valve surgery in the future
Congenital heart surgery as a child, no records available=> we did ask for records to be obtained
Right 5th toe amputation performed on 12/07/2023
-No cardiac complications detected from surgery
Sepsis in the setting of right 5th toe infection in a diabetic patient
PAD, vascular surgery involved
- Pt may progress to angiogram this admit
Anemia, appears acute on chronic
- Old iron studies concerning for iron deficiency => transfused and getting IV iron
Type I vs 2 DM, uncontrolled, Hgba1c 9.6%, per primary => multiple complications
- Pt hopes not to take SGLT2-I in future.
- She thinks she has type II DM, we generally do not use SGLT2-I in type I DM
Prior CVA, refused LINQ
Guillain [place] syndrome, with chronic LLE weakness
Subjective:
SOB and edema are improving.
Right heart cath 12/09/2023:
Weight (kg):77.1
PA (s/d/x mmHg): 99/31/54
PCWP (a/v/x mmHg): 55/64/47
RV (s/x mmHg): 100/17
RA (a/v/x mmHg):
Echo 12/08/2023:
CONCLUSIONS
Left ventricle is small in size.
Hyperdynamic left ventricular systolic function.
Stage II diastolic dysfunction suggestive of abnormal relaxation and increased
filling pressures.
Dense mitral annular calcification.
Mild to moderate mitral stenosis (calcific in nature with the dense MAC. The
anterior MV leaflet moves normally).
Mild mitral regurgitation.
Thickened aortic valve with restricted leaflet motion.
Moderate aortic stenosis.
Moderate aortic regurgitation.
Mild tricuspid regurgitation.
Estimated PASP 60-65 mmHg.
No significant change since the prior study of 04/07/2023.
The nature of her congenital heart disease and congenital heart surgery at age
5 is unknown. She reports correction of a blockage near her aorta or aortic
valve.
Physical Exam
Vital Signs/Labs
Vital Signs
Temp Pulse Resp BP Pulse Ox
98.2 F 86 18 159/73 95
12/11/23 07:00 12/11/23 07:00 12/11/23 07:00 12/11/23 07:00 12/11/23 07:00
12/10/23 12/11/23 12/12/23
06:59 06:59 06:59
Actual Weight 75.835 kg 73.964 kg
12/11/23 07:30
12/11/23 07:30
Magnesium 2.3 mg/dl (1.6-2.3) 12/11/23 07:30
12/08/23
08:30
Ski-I-Zldkcopeykk Pept [id number]
Physical Exam
Constitutional: No acute distress
EENT: Moist mucous membranes
Cardiovascular: Rhythm & rate is regular, Pedal edema present, JVD present, Systolic murmur present and Diastolic murmur present
Respiratory: Respiratory effort normal and Lungs clear to auscul.
GI: Soft and Distention absent
Neuro/Psych: Oriented
Data Reviewed
-
Date of Service: December 11, 2023
EKG: Other (Tele: SR 80s)
Labs: Labs Reviewed by me
--- NOTE | 2023-12-11 10:44 | W.PN.UPDATE ---
Update Note
Progress Note Update
Chart reviewed
Labs reviewed
When patient medically optimized can move ahead with lower extremity arteriogram and possible endovascular intervention early next week (12/15/2023)
Call with questions or concerns
Will follow peripherally
Memo Whitmore III, MD
[facility] Vascular Surgery
[phone] ([phone])
[2023-12-11 12:22] LABS: Glucose - Point of Care 82 mg/dl (70-99)
--- NOTE | 2023-12-11 12:41 | PHA.VAN.FU ---
Vancomycin Assessment / Plan
- Assessment
Renal Function: Stable
WBC's are: Trending Down
In the past 24 hrs, patient has been: Afebrile
- Assessment - Therapeutic Drug Monitoring
Random Level: 16.5 ~14 hours post 750 mg dose
- Dosing Plan
Continue: to dose by level
Dosing by Level: Hold off on dosing today
- Monitoring Plan
Random Level: 6/8 am
- Follow Up
Pharmacy will continue to follow.
Vancomycin Follow UP
- -
Patient Age: 48
Patient Sex: Female
Vancomycin Day #: 6
Indication: Diabetic Foot
Requesting Provider: Oscar / Kenan
Pertinent Antimicrobial Allergies:
no pertinent antimicrobial allergies
Height / Weight:
Height 5 ft 3 in
Actual Weight 73.964 kg
Pertinent Past Medical History: BMI ~30, DM, CKD III
- Vital Signs / Lab Results
Temp Pulse Resp BP Pulse Ox
99.2 F 98 20 129/55 99
12/11/23 12:04 12/11/23 12:04 12/11/23 12:04 12/11/23 12:04 12/11/23 12:04
Lab Results - Hematology
12/09/23 12/10/23 12/10/23
06:29 01:08 07:55
WBC 11.2 H 12.1 H 13.9 H
12/11/23
07:30
WBC 13.3 H
Lab Results - Chemistry
12/09/23 12/10/23 12/10/23
06:29 01:08 07:55
BUN 86 H 87 H 84 H
Creatinine 3.2 H 2.2 H 2.2 H
Estimated Creat Clear 21 31 30
Albumin 2.8 L 3.1 L
12/10/23 12/11/23 12/11/23
20:19 01:50 07:30
BUN 83 H 83 H 82 H
Creatinine 1.8 H 2.0 H 1.9 H
Estimated Creat Clear 37 34 35
Albumin 3.0 L
Microbiology Results
12/06/23 03:26 Blood Culture - Final
Blood/Venous No Growth - Final Report
12/06/23 00:51 Blood Culture - Final
Blood/Venous No Growth - Final Report
12/07/23 16:14 Anaerobic Culture - Preliminary
Foot - Right Culture pending. Anaerobic cultures are examined after 3
days incubation. Additional information to follow.
12/07/23 16:14 Wound Culture - Preliminary
Foot - Right S aureus-Methicillin Sensitive
Streptococcus agalactiae
Gram Stain - Preliminary
Therapeutic Drug Monitoring
Random Vancomycin 16.5 ug/ml 12/11/23 07:30
[2023-12-11] MEDS: FERRLECIT 110 MG IV (12:58)
--- NOTE | 2023-12-11 13:12 | W.PN.ID1 ---
Date of Service
Date of Service: December 11, 2023
Today's Communication
Continue antibiotics. Transition vancomycin to cefazolin.
Assessment / Plan
Diabetic Foot Infection
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
DM1 - uncontrolled
CKD4
Congenital Heart disease
/AR
Pulm HTN
Guillain [place] syndrome, with chronic LLE weakness
Recommendations:
- Blood cultures without growth.
- / OR culture S aureus and GBS - bone from 5th prox phalanx -confirmed with surgeon- options would be revision vs further antibiotics.
- MRI without evidence of osteomyelitis at this time, time course is relatively short
- Narrow to cefazolin 2 gm IV q12h
- Local care to wound.
����������������������������������������������������������
Chief Complaint
-: Other (diabetic foot infection)
Subjective / Review of Systems
Review of Systems: No Fever and No Chills
Vital Signs / Physical Exam
Vital Signs
Vital Signs
Temp Pulse Resp BP Pulse Ox
99.2 F 98 20 129/55 99
12/11/23 12:04 12/11/23 12:04 12/11/23 12:04 12/11/23 12:04 12/11/23 12:04
Physical Exam
Constitutional: No Acute Distress and Comfortable
Eyes: Sclera Anicteric
Cardiovascular: S1/S2; Negative S3/S4
Pulmonary: Non Labored
Wound: Other (Right foot dressing intact. Mild bloody strikethrough.)
Neurological: Awake and Alert
Psychological: Calm
Objective Data
Lab Data
Lab Results
12/11/23 07:30
12/11/23 07:30
ESR 105 mm/hour (0-20) H 12/06/23 00:52
Estimated Creat Clear 35 ml/min 12/11/23 07:30
Lactic Acid 1.2 mmol/L (0.7-2.0) 12/06/23 00:52
Total Bilirubin 0.5 mg/dl (0.2-1.3) 12/11/23 07:30
AST 40 U/L (14-36) H 12/11/23 07:30
ALT 33 U/L (0-35) 12/11/23 07:30
Alkaline Phosphatase 479 U/L (38-126) H 12/11/23 07:30
C-Reactive Protein 223.70 mg/L (0.0-10.00) H 12/06/23 00:52
Most recent labs reviewed.
Micro Results:
12/06/23 03:26 Blood Culture - Final
Blood/Venous No Growth - Final Report
12/06/23 00:51 Blood Culture - Final
Blood/Venous No Growth - Final Report
12/07/23 16:14 Anaerobic Culture - Preliminary
Foot - Right Culture pending. Anaerobic cultures are examined after 3
days incubation. Additional information to follow.
12/07/23 16:14 Wound Culture - Preliminary
Foot - Right S aureus-Methicillin Sensitive
Streptococcus agalactiae
Gram Stain - Preliminary
12/06/23 22:32 MRSA Screen - Final
Nose No Methicillin Resistant Staphylococcus aureus isolated.
--- NOTE | 2023-12-11 15:25 | W.PN.HOSP.TC ---
Today's Communication/Plan
-
Continue Bumex Drip
Morning Labs
Assessment / Plan
Assessment / Plan
Physical Exam
General: Not in acute distress
HEENT: Normocephalic, Atraumatic and Moist Mucous Membranes
Respiratory: Clear to Auscultation Bilaterally
Cardiac: Regular Rhythm and S1/S2
GI: Soft, Nontender and Nondistended. Positive bowel sounds.
Skin: Right foot wrapped in dressing
Neuro: Awake, Alert and Oriented

Assessment/Plan
Patient is a 48 y/o female with past medical history significant for HTN, DM-II, multiple prior CVAs and valvular heart disease who presents to ED complaining of pain, swelling and skin changes of the R foot / 5th toe.
Aortic Stenosis
Mitral Stenosis
Aortic Regurgitation
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
SEVERE ACUTE ON CHRONIC HFpEF, (PCWP 47 at 77 kg on 12/09/2023)
Severely elevated filling pressures
Severe Pulmonary Hypertension
- Cardiac cath on 12/09/23 showed severely elevated filling pressures and severe pulmonary HTN
- Stopped Lasix on 12/09/23
- Bumex started on 12/09/23 with great improvements in creatinine and patient feels better from this as well
- Continue Bumex Drip
- Follow daily weights, I/Os, etc.
- Continue IV diuresis -- and with improvement in status, can consider adjusting meds towards GDMT for HFpEF
Diabetic Foot Infection Right Foot/Right 5th toe gangrene status post Right 5th toe amputation and left open for secondary intention healing
with cellulitic changes up to mid palomo
Sepsis secondary to the above
- Patient presented with leukocytosis and tachycardia with evident R foot infection.
- R 5th toe essentially degloved. X-ray without evident bony involvement - would check MR for further evaluation.
- Note significant elevations in ESR 105 / CRP 223.7 which may support osteomyelitis.
- IV Zosyn stopped. ID consulted, recommendations appreciated
- Completed Meropenem.
- Status post Vancomycin
- Cefazolin started -- continue
- Podiatry evaluation for further recommendations/status post right 5th toe amputation
- Follow for clinical improvement.
- Per vascular surgery: when patient medically optimized can move ahead with lower extremity arteriogram and possible endovascular intervention early next week (12/15/2023)
DM-I vs. DM-II
onset age 12
- Diabetes MAINTENANCE CRAFTSMAN consulted, recommendations appreciated
- Continue premeal and Long-acting Insulin as ordered -- doses were recently reduced as patient was eating less and with lower glucose readings
- Continue accuchecks
Acute On Chronic Anemia
-PRBCs ordered on 12/09/23 with good improvement
-Recheck CBC
-IV iron as ordered by nephrology
MARYLOU on CKD III
Anuria
metabolic Acidosis
- Creatinine worsened, but no improving
- Consulted Nephrology on 12/07/23 given worsening renal function, along with acidosis and hyponatremia
- Bicarb ordered
- Avoid nephrotoxins, dose antibiotics renally
ASCVD
- Multiple prior CVAs. LINQ recorder recommended; however, patient declined.
- Continue daily ASA. Will hold Plavix acutely in the event that surgical intervention is needed.
- Continue statin, BP control, etc.
- Monitor on telemetry for now.
- Follow for any new symptoms / complaints.
Guillain [place] syndrome, with chronic LLE weakness
DVT Prophylaxis: Heparin Subq
Code Status: Full
Anticipated Discharge: > 48 hours
Subjective/Interval History
-
Date of Service: December 11, 2023
Patient was seen and examined. She reported still feeling sore everywhere. She denied any new significant symptoms or complaints.
Objective Data
-
Labs:
Laboratory Results
12/11/23
07:30
WBC 13.3 H
Hgb 8.8 L
Hct 26.3 L
Plt Count 387
Sodium 139
Potassium 4.2
Chloride 107
Carbon Dioxide 22
BUN 82 H
Creatinine 1.9 H
Glucose 101 H
Calcium 9.0
Total Bilirubin 0.5
AST 40 H
ALT 33
Alkaline Phosphatase 479 H
Vital Signs:
Vital Signs
Temp Pulse Resp BP Pulse Ox
99.2 F 98 20 129/55 99
12/11/23 12:04 12/11/23 12:04 12/11/23 12:04 12/11/23 12:04 12/11/23 12:04
I&O
12/10/23 12/11/23 12/12/23
06:59 06:59 06:59
Intake Total 710 / 710 1560 / 1560
Output Total 1999 / 1999 3350 / 3350
Balance -1290 / -1290 -1790 / -1790
--- NOTE | 2023-12-11 15:30 | W.PN.NEPH.PH ---
Today's Communication / Plan
-
cont bumex
check BMP
Assessment/Plan
-
IMP:
Diabetic Foot Infection Right Foot, right 5th toe amputation
Sepsis secondary to the above
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
MARYLOU with CKD stage 4
hyponatremia
Acute on chr anemia
A gap met acidosis
ASCVD
Multiple prior CVAs. LINQ recorder recommended; however, patient declined.
Chronic HFpEF
Congenital heart surgery as a child, no records available
Moderate , AR, mild to mod MS
Guillain [place] syndrome, with chronic LLE weakness
Plan:
MARYLOU-cardiorenal, cr improved to baseline at 1.9
Pt reports 10 more lbs to get to dry wt
follow labs later today
continue Bumex gtt, possible change to intermittent dosing in 1-2days
met acidosis is stable with po bicarb
hb stable on IV fe infusion
Possible angio eary next week as long as cr stable
would hold initiating SGLT2 inhibitor this admit, also she seem type 1DM
abx per ID, vanc changed to ancef
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
-
-
Date of Service: December 11, 2023
CC / HPI / ROS
-
Chief Complaint:
MARYLOU with CKD
History of Present Illness:
MARYLOU/Cr down to 1.9
Na normal now
s/p RHC 6/5. PCWP 47
Hgb up to 8.8
wt decreasing, non oliguric
Review of Systems:
no cp or sob
aches all over
Labs
-
Labs:
WBC 13.3 10^3/uL (4.8-10.8) H 12/11/23 07:30
RBC 3.85 10^6/uL (4.20-5.40) L 12/11/23 07:30
Hgb 8.8 g/dL (12.0-16.0) L 12/11/23 07:30
Hct 26.3 % (37.0-47.0) L 12/11/23 07:30
Plt Count 387 10^3/uL (130-400) 12/11/23 07:30
Sodium 139 mmol/L (135-145) 12/11/23 07:30
Potassium 4.2 mmol/L (3.5-5.1) 12/11/23 07:30
Chloride 107 mmol/L (98-107) 12/11/23 07:30
Carbon Dioxide 22 mmol/L (22-30) 12/11/23 07:30
BUN 82 mg/dl (7-17) H 12/11/23 07:30
Creatinine 1.9 mg/dL (0.6-1.0) H 12/11/23 07:30
eGFR 32.17 12/11/23 07:30
Glucose 101 mg/dl (70-99) H 12/11/23 07:30
Calcium 9.0 mg/dl (8.4-10.2) 12/11/23 07:30
Bca-Q-Orqiaibyzma Pept 00356 pg/ml 12/08/23 08:30
Albumin 3.0 g/dl (3.5-5.0) L 12/11/23 07:30
Physical Exam
-
Vital Signs:
Vital Signs
Temp Pulse Resp BP Pulse Ox
99.2 F 98 20 129/55 99
12/11/23 12:04 12/11/23 12:04 12/11/23 12:04 12/11/23 12:04 12/11/23 12:04
Cardiovascular:: Regular rate and rhythm
Respiratory:: Bilateral: CTA
Lung Excursion:: Normal
Abdomen:: Nontender and Soft
Extremity Edema:: None: Bilateral: (trace)
Whitmore Catheter: No
[2023-12-11] MEDS: ANCEF 10 IV (15:33)
[2023-12-11 16:33] LABS: Blood Urea Nitrogen 79 mg/dl (7-17); Calcium 9.2 mg/dl (8.4-10.2); Carbon Dioxide 28 mmol/L (22-30); Chloride 103 mmol/L (98-107); Estimated Creatinine Clearance 35 ml/min; Glucose 93 mg/dl (70-99); Potassium 3.8 mmol/L (3.5-5.1); Sodium 140 mmol/L (135-145); eGFR 32.17
[2023-12-11 17:00] LABS: Glucose - Point of Care 115 mg/dl (70-99)
[2023-12-11] MEDS: NOVOLOG FLEXPEN 3 UNITS SC (17:31)
[2023-12-11] MEDS: LIPITOR 80 MG PO (17:31)
[2023-12-11 21:11] LABS: Glucose - Point of Care 114 mg/dl (70-99)
[2023-12-11] MEDS: LANTUS 0.119999999999999996 UNITS SC (21:46)
[2023-12-11 22:42] LABS: Albumin 2.63 g/dL (3.75-5.01); Alpha 1 Globulin 0.64 g/dL (0.19-0.46); Alpha 2 Globulin 0.94 g/dL (0.48-1.05); SPEP IFE Reflex Not Done; Total Protein-Electrophoresis 6.5 g/dL (6.3-8.2)
[2023-12-12] MEDS: ANCEF 10 IV ×2 (02:53→14:08)
[2023-12-12 03:00] VITALS: BP 128/84
[2023-12-12] MEDS: TYLENOL 1000 MG PO ×3 (03:00→20:55)
[2023-12-12 06:00] VITALS: BMI 28.2
[2023-12-12] MEDS: BUMEX 50 IV (06:26)
[2023-12-12 07:36] VITALS: BP 121/58
[2023-12-12 07:47] LABS: Glucose - Point of Care 73 mg/dl (70-99)
[2023-12-12 08:20] LABS: % Basophils 0.3 % (0-2); % Eosinophils 0.5 % (0-6); % Immature Granulocytes 3.2 % (0-0.5); % Lymphocytes 8.1 % (20.5-51.1); % Neutrophils 80.9 % (42.2-75.2); Absolute Basophils 0.1 10^3/uL (0-0.2); Absolute Eosinophils 0.1 10^3/uL (0-0.7); Absolute Immature Granulocytes 0.7 10^3/uL (0-0.05); Absolute Lymphocytes 1.7 10^3/uL (1.2-3.4); Absolute Monocytes 1.4 10^3/uL (0.1-0.6); Absolute Neutrophils 16.5 10^3/uL (1.4-6.5); Hematocrit 27.9 % (37.0-47.0); Hemoglobin 8.5 g/dL (12.0-16.0); Mean Corp Hgb Conc. 30.5 g/dL (33.0-37.0); Mean Corpuscular Hgb 22.6 pg (27.0-31.0); Mean Corpuscular Volume 74.2 fL (81.0-99.0); Nucleated Red Blood Cells % 0.2 %; Platelet Count 358 10^3/uL (130-400); Red Blood Cell Count 3.76 10^6/uL (4.20-5.40); Red Cell Dist. Width 17.2 % (11.5-14.5); White Blood Cell Count 20.5 10^3/uL (4.8-10.8)
[2023-12-12 08:31] LABS: Glucose - Point of Care 104 mg/dl (70-99)
[2023-12-12] MEDS: NOVOLOG FLEXPEN-LOW RESISTANCE SC ×3 (08:31→17:10)
[2023-12-12] MEDS: NOVOLOG FLEXPEN SC ×2 (08:31→12:53)
[2023-12-12] MEDS: ASPIR LOW (ENTERIC COATED) 81 MG PO (08:50)
[2023-12-12] MEDS: HEPARIN 5000 UNITS SC ×2 (08:50→20:54)
[2023-12-12] MEDS: SODIUM BICARBONATE 1300 MG PO ×3 (08:50→22:56)
[2023-12-12] MEDS: COLACE PO ×2 (08:58→20:53)
[2023-12-12 09:06] LABS: ALT (SGPT) 24 U/L (0-35); AST (SGOT) 45 U/L (14-36); Albumin 2.9 g/dl (3.5-5.0); Alkaline Phosphatase 417 U/L (38-126); Blood Urea Nitrogen 76 mg/dl (7-17); Calcium 8.6 mg/dl (8.4-10.2); Carbon Dioxide 29 mmol/L (22-30); Chloride 102 mmol/L (98-107); Estimated Creatinine Clearance 30 ml/min; Glucose 37 mg/dl (70-99); Sodium 142 mmol/L (135-145); Total Bilirubin 0.4 mg/dl (0.2-1.3); Total Protein 6.6 g/dl (6.3-8.2); eGFR 26.98
[2023-12-12 11:43] VITALS: BP 158/73
[2023-12-12 12:53] LABS: Glucose - Point of Care 117 mg/dl (70-99)
[2023-12-12] MEDS: FERRLECIT 110 MG IV (12:57)
--- NOTE | 2023-12-12 12:59 | W.PN.CD ---
Today's Communication / Plan
-
-Continue Bumex drip; Nephrology following.
Impression / Plan
-
SEVERE ACUTE ON CHRONIC HFpEF, (PCWP 47 at 77 kg on 12/09/2023)
-weight is coming down: unclear dry weight
-Continue Bumex drip; Nephrology following.
-CKD3b may be baseline
-if Cr remains stable as we diurese, we can assess to add SGLTi before d/c
-Patient will need a standing diuretic at home.
Mixed valvular heart disease
-Moderate , moderate/severe AR, mild/moderate MS
-Will likely need valve surgery in the future; evaluate as outpatient.
Congenital heart surgery as a child, no records available=> we did ask for records to be obtained
Right 5th toe amputation performed on 12/07/2023
-No cardiac complications detected from surgery
Sepsis in the setting of right 5th toe infection in a diabetic patient
PAD, vascular surgery involved
- Pt may progress to angiogram this admit
Anemia, appears acute on chronic
- Old iron studies concerning for iron deficiency => transfused and getting IV iron
Type I vs 2 DM, uncontrolled, Hgba1c 9.6%, per primary => multiple complications
- Pt hopes not to take SGLT2-I in future.
- She thinks she has type II DM, we generally do not use SGLT2-I in type I DM
Prior CVA, refused LINQ
Guillain [place] syndrome, with chronic LLE weakness
Subjective:
No major events overnight.
Right heart cath 12/09/2023:
Weight (kg):77.1
PA (s/d/x mmHg): 99/31/54
PCWP (a/v/x mmHg): 55/64/47
RV (s/x mmHg): 100/17
RA (a/v/x mmHg):
Echo 12/08/2023:
CONCLUSIONS
Left ventricle is small in size.
Hyperdynamic left ventricular systolic function.
Stage II diastolic dysfunction suggestive of abnormal relaxation and increased
filling pressures.
Dense mitral annular calcification.
Mild to moderate mitral stenosis (calcific in nature with the dense MAC. The
anterior MV leaflet moves normally).
Mild mitral regurgitation.
Thickened aortic valve with restricted leaflet motion.
Moderate aortic stenosis.
Moderate aortic regurgitation.
Mild tricuspid regurgitation.
Estimated PASP 60-65 mmHg.
No significant change since the prior study of 04/07/2023.
The nature of her congenital heart disease and congenital heart surgery at age
5 is unknown. She reports correction of a blockage near her aorta or aortic
valve.
Physical Exam
Vital Signs/Labs
Vital Signs
Temp Pulse Resp BP Pulse Ox
98.8 F 103 20 158/73 100
12/12/23 11:43 12/12/23 11:43 12/12/23 11:43 12/12/23 11:43 12/12/23 11:43
12/11/23 12/12/23 12/13/23
06:59 06:59 06:59
Actual Weight 73.964 kg 72.206 kg
12/12/23 06:52
12/12/23 06:52
Magnesium 2.0 mg/dl (1.6-2.3) 12/11/23 16:04
12/08/23
08:30
Cke-C-Cyakibpdono Pept [id number]
Physical Exam
Constitutional: No acute distress and Comfortable
EENT: Anicteric
Cardiovascular: Rhythm & rate is regular, Pedal edema present (1+), Systolic murmur present (3/6), Diastolic murmur present (2/4) and S1S2 is normal
Respiratory: Respiratory effort normal and Rhonchi Present (Scant bibasilar rhonchi)
GI: Soft
Neuro/Psych: AO x 3
Other: Skin (Warm, dry)
Data Reviewed
-
Date of Service: December 12, 2023
EKG: Tracing Personally Visualized and interpreted (Telemetry: Sinus rhythm)
Labs: Labs Reviewed by me
[2023-12-12] MEDS: FLUSH (NSS) 1 FLUSH IV (14:08)
--- NOTE | 2023-12-12 15:02 | W.PN.NEPH.PH ---
Today's Communication / Plan
-
cont bumex gtt, likely change to 2mg BID from tomorrow
Assessment/Plan
-
IMP:
Diabetic Foot Infection Right Foot, right 5th toe amputation
Sepsis secondary to the above
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
MARYLOU with CKD stage 4
hyponatremia
Acute on chr anemia
A gap met acidosis
ASCVD
Multiple prior CVAs. LINQ recorder recommended; however, patient declined.
Chronic HFpEF
Congenital heart surgery as a child, no records available
Moderate , AR, mild to mod MS
Guillain [place] syndrome, with chronic LLE weakness
Plan:
MARLYOU-cardiorenal, cr improved to baseline at 2.2
Pt reports 5 more lbs to get to dry wt
continue Bumex gtt, possible change to intermittent dosing tomorrow
hold bicarb for evolving met alkalosis
hb stable on IV fe infusion
Possible angio early next week as long as cr stable
would hold initiating SGLT2 inhibitor this admit, also she seem type 1DM
abx per ID, on ancef
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
-
-
Date of Service: December 12, 2023
CC / HPI / ROS
-
Chief Complaint:
MARYLOU with CKD
History of Present Illness:
MARYLOU/Cr relatively stable at 2.2
Na normal now
s/p RHC 6/5. PCWP 47
Hgb up to 8.5
wt decreasing, non oliguric
Review of Systems:
no cp or sob
aches all over
Labs
-
Labs:
WBC 20.5 10^3/uL (4.8-10.8) H 12/12/23 06:52
RBC 3.76 10^6/uL (4.20-5.40) L 12/12/23 06:52
Hgb 8.5 g/dL (12.0-16.0) L 12/12/23 06:52
Hct 27.9 % (37.0-47.0) L 12/12/23 06:52
Plt Count 358 10^3/uL (130-400) 12/12/23 06:52
Sodium 142 mmol/L (135-145) 12/12/23 06:52
Potassium 4.0 mmol/L (3.5-5.1) 12/12/23 06:52
Chloride 102 mmol/L (98-107) 12/12/23 06:52
Carbon Dioxide 29 mmol/L (22-30) 12/12/23 06:52
BUN 76 mg/dl (7-17) H 12/12/23 06:52
Creatinine 2.2 mg/dL (0.6-1.0) H 12/12/23 06:52
eGFR 26.98 12/12/23 06:52
Glucose 37 mg/dl (70-99) L* 12/12/23 06:52
Calcium 8.6 mg/dl (8.4-10.2) 12/12/23 06:52
Lwh-U-Lmzqtbbruzp Pept 11115 pg/ml 12/08/23 08:30
Albumin 2.9 g/dl (3.5-5.0) L 12/12/23 06:52
Physical Exam
-
Vital Signs:
Vital Signs
Temp Pulse Resp BP Pulse Ox
98.8 F 103 20 158/73 100
12/12/23 11:43 12/12/23 11:43 12/12/23 11:43 12/12/23 11:43 12/12/23 11:43
Cardiovascular:: Regular rate and rhythm
Respiratory:: Bilateral: CTA
Lung Excursion:: Normal
Abdomen:: Nontender and Soft
Extremity Edema:: +1: Bilateral:
Whitmore Catheter: No
--- NOTE | 2023-12-12 15:20 | W.PN.ID1 ---
Date of Service
Date of Service: December 12, 2023
Today's Communication
Continue cefazolin.
Assessment / Plan
Diabetic Foot Infection
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
DM1 - uncontrolled
CKD4
Congenital Heart disease
/AR
Pulm HTN
Guillain [place] syndrome, with chronic LLE weakness
Recommendations:
- Blood cultures without growth.
- 12/06 Bone path prox margin: neg osteo
OR culture S aureus (MSSA)and GBS - bone from 5th prox phalanx -confirmed with surgeon- options would be revision vs further antibiotics.
- MRI without evidence of osteomyelitis at this time, time course is relatively short
- Continue cefazolin 2 gm IV q12h
- PAD - for endovascular intervention week week.
- Leukocytosis significantly worse today. Follow for now.
����������������������������������������������������������
Chief Complaint
-: Leukocytosis and Other (diabetic foot infection)
Subjective / Review of Systems
No diarrhea.
No foot pain.
Vital Signs / Physical Exam
Vital Signs
Vital Signs
Temp Pulse Resp BP Pulse Ox
98.8 F 103 20 158/73 100
12/12/23 11:43 12/12/23 11:43 12/12/23 11:43 12/12/23 11:43 12/12/23 11:43
Physical Exam
Constitutional: No Acute Distress
Pulmonary: Clear
Gastrointestinal: Soft, Non Tender and Non Distended
Objective Data
Lab Data
Lab Results
12/12/23 06:52
12/12/23 06:52
ESR 105 mm/hour (0-20) H 12/06/23 00:52
Estimated Creat Clear 30 ml/min 12/12/23 06:52
Lactic Acid 1.2 mmol/L (0.7-2.0) 12/06/23 00:52
Total Bilirubin 0.4 mg/dl (0.2-1.3) 12/12/23 06:52
AST 45 U/L (14-36) H 12/12/23 06:52
ALT 24 U/L (0-35) 12/12/23 06:52
Alkaline Phosphatase 417 U/L (38-126) H 12/12/23 06:52
C-Reactive Protein 223.70 mg/L (0.0-10.00) H 12/06/23 00:52
Most recent labs reviewed.
Micro Results:
12/07/23 16:14 Wound Culture - Final
Foot - Right S aureus-Methicillin Sensitive
Streptococcus agalactiae
Gram Stain - Final
12/07/23 16:14 Anaerobic Culture - Final
Foot - Right
12/06/23 03:26 Blood Culture - Final
Blood/Venous No Growth - Final Report
12/06/23 00:51 Blood Culture - Final
Blood/Venous No Growth - Final Report
12/06/23 22:32 MRSA Screen - Final
Nose No Methicillin Resistant Staphylococcus aureus isolated.
[2023-12-12 15:33] VITALS: BP 125/55
--- NOTE | 2023-12-12 16:07 | W.PN.HOSP.TC ---
Today's Communication/Plan
-
Nighttime Lantus decreased to 2 units given patient's significant hypoglycemia on 12 units HS
Continue Bumex and Antibiotics
Assessment / Plan
Assessment / Plan
Physical Exam
General: Not in acute distress
HEENT: Normocephalic, Atraumatic and Moist Mucous Membranes
Respiratory: Clear to Auscultation Bilaterally
Cardiac: Regular Rhythm and S1/S2
GI: Soft, Nontender and Nondistended. Positive bowel sounds.
Skin: Right foot wrapped in dressing
Neuro: Awake, Alert and Oriented

Assessment/Plan
Patient is a 48 y/o female with past medical history significant for HTN, DM-II, multiple prior CVAs and valvular heart disease who presents to ED complaining of pain, swelling and skin changes of the R foot / 5th toe.
Aortic Stenosis
Mitral Stenosis
Aortic Regurgitation
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
SEVERE ACUTE ON CHRONIC HFpEF, (PCWP 47 at 77 kg on 12/09/2023)
Severely elevated filling pressures
Severe Pulmonary Hypertension
- Cardiac cath on 12/09/23 showed severely elevated filling pressures and severe pulmonary HTN
- Stopped Lasix on 12/09/23
- Bumex started on 12/09/23 with great improvements in creatinine and patient feels better from this as well
- Continue Bumex Drip
- Follow daily weights, I/Os, etc.
- Continue IV diuresis -- and with improvement in status, can consider adjusting meds towards GDMT for HFpEF
Diabetic Foot Infection Right Foot/Right 5th toe gangrene status post Right 5th toe amputation and left open for secondary intention healing
with cellulitic changes up to mid palomo
Sepsis secondary to the above
- Patient presented with leukocytosis and tachycardia with evident R foot infection.
- R 5th toe essentially degloved. X-ray without evident bony involvement - would check MR for further evaluation.
- Note significant elevations in ESR 105 / CRP 223.7 which may support osteomyelitis.
- IV Zosyn stopped. ID consulted, recommendations appreciated
- Completed Meropenem.
- Status post Vancomycin
- Cefazolin started -- continue
- Podiatry evaluation for further recommendations/status post right 5th toe amputation
- Follow for clinical improvement.
- Per vascular surgery: when patient medically optimized can move ahead with lower extremity arteriogram and possible endovascular intervention early next week (12/15/2023)
DM-I vs. DM-II
Hypoglycemia
onset age 12
- Diabetes [employer] consulted, recommendations appreciated
- Continue premeal and Long-acting Insulin as ordered -- doses were recently reduced as patient was eating less and with lower glucose readings (and hypoglycemia on December 12, 2023 AM)
- Continue accuchecks
Acute On Chronic Anemia
-PRBCs ordered on 12/09/23 with good improvement
-Recheck CBC
-IV iron as ordered by nephrology
MARYLOU on CKD III
Anuria
metabolic Acidosis
- Creatinine worsened, but no improving
- Consulted Nephrology on 12/07/23 given worsening renal function, along with acidosis and hyponatremia
- Status post Bicarb
- Avoid nephrotoxins, dose antibiotics renally
ASCVD
- Multiple prior CVAs. LINQ recorder recommended; however, patient declined.
- Continue daily ASA. Will hold Plavix acutely in the event that surgical intervention is needed.
- Continue statin, BP control, etc.
- Monitor on telemetry for now.
- Follow for any new symptoms / complaints.
Guillain [place] syndrome, with chronic LLE weakness
DVT Prophylaxis: Heparin Subq
Code Status: Full
Anticipated Discharge: > 48 hours
Subjective/Interval History
-
Date of Service: December 12, 2023
Patient was seen and examined. She reported she still has generalized soreness, but said she doesn't think she has COVID or the Flu.
Objective Data
-
Labs:
Laboratory Results
12/12/23
06:52
WBC 20.5 H
Hgb 8.5 L
Hct 27.9 L
Plt Count 358
Sodium 142
Potassium 4.0
Chloride 102
Carbon Dioxide 29
BUN 76 H
Creatinine 2.2 H
Glucose 37 L*
Calcium 8.6
Total Bilirubin 0.4
AST 45 H
ALT 24
Alkaline Phosphatase 417 H
Vital Signs:
Vital Signs
Temp Pulse Resp BP Pulse Ox
98.1 F 97 16 125/55 98
12/12/23 15:33 12/12/23 15:33 12/12/23 15:33 12/12/23 15:33 12/12/23 15:33
I&O
12/11/23 12/12/23 12/13/23
06:59 06:59 06:59
Intake Total 1560 / 1560 110 / 110
Output Total 3350 / 3350 1999
Balance -1790 / -1790 -1999 110 / 110
[2023-12-12 16:42] LABS: Glucose - Point of Care 117 mg/dl (70-99)
[2023-12-12] MEDS: LIPITOR 80 MG PO (17:09)
[2023-12-12] MEDS: NOVOLOG FLEXPEN 3 UNITS SC (17:10)
[2023-12-12 19:00] VITALS: BP 140/62
[2023-12-12 21:28] LABS: Glucose - Point of Care 90 mg/dl (70-99)
[2023-12-12] MEDS: LANTUS SC (22:56)
[2023-12-12 23:00] VITALS: BP 112/57
[2023-12-13 03:00] VITALS: BP 168/68
[2023-12-13] MEDS: TYLENOL 1000 MG PO ×3 (03:12→19:59)
[2023-12-13] MEDS: ANCEF 10 IV ×2 (03:12→14:12)
[2023-12-13 06:00] VITALS: BMI 28.7
[2023-12-13 07:00] VITALS: BP 130/63
[2023-12-13 07:47] LABS: Glucose - Point of Care 88 mg/dl (70-99)
[2023-12-13] MEDS: COLACE PO ×2 (07:49→20:00)
[2023-12-13] MEDS: NOVOLOG FLEXPEN-LOW RESISTANCE SC ×3 (07:50→16:44)
[2023-12-13] MEDS: NOVOLOG FLEXPEN SC (07:50)
[2023-12-13] MEDS: HEPARIN 5000 UNITS SC ×2 (07:50→19:59)
[2023-12-13] MEDS: ASPIR LOW (ENTERIC COATED) 81 MG PO (07:51)
[2023-12-13] MEDS: SODIUM BICARBONATE 1300 MG PO (07:51)
[2023-12-13 08:17] LABS: % Basophils 0.5 % (0-2); % Eosinophils 0.3 % (0-6); % Immature Granulocytes 1.9 % (0-0.5); % Lymphocytes 8.2 % (20.5-51.1); % Monocytes 6.6 % (1.7-9.3); % Neutrophils 82.5 % (42.2-75.2); Absolute Basophils 0.1 10^3/uL (0-0.2); Absolute Eosinophils 0.1 10^3/uL (0-0.7); Absolute Immature Granulocytes 0.5 10^3/uL (0-0.05); Absolute Monocytes 1.6 10^3/uL (0.1-0.6); Hematocrit 27.3 % (37.0-47.0); Hemoglobin 8.5 g/dL (12.0-16.0); Mean Corp Hgb Conc. 31.1 g/dL (33.0-37.0); Mean Platelet Volume 9.2 fL (7.4-10.4); Nucleated Red Blood Cells % 0.2 %; Platelet Count 353 10^3/uL (130-400); Red Blood Cell Count 3.69 10^6/uL (4.20-5.40); Red Cell Dist. Width 18.1 % (11.5-14.5); White Blood Cell Count 24.3 10^3/uL (4.8-10.8)
--- NOTE | 2023-12-13 08:29 | W.PN.UPDATE ---
Update Note
Progress Note Update
Planning for LE A'gram and possible endo intervention 12/15/23
Call with questions/concerns
Memo Whitmore III, MD
[facility]
[phone] (jsuk)
[2023-12-13 08:30] LABS: ALT (SGPT) 13 U/L (0-35); AST (SGOT) 83 U/L (14-36); Albumin 2.8 g/dl (3.5-5.0); Alkaline Phosphatase 411 U/L (38-126); Blood Urea Nitrogen 78 mg/dl (7-17); Calcium 8.8 mg/dl (8.4-10.2); Carbon Dioxide 33 mmol/L (22-30); Chloride 101 mmol/L (98-107); Estimated Creatinine Clearance 25 ml/min; Glucose 77 mg/dl (70-99); Potassium 4.2 mmol/L (3.5-5.1); Sodium 141 mmol/L (135-145); Total Bilirubin 0.5 mg/dl (0.2-1.3); Total Protein 6.8 g/dl (6.3-8.2); eGFR 22.08
[2023-12-13 10:18] VITALS: BMI 28.2
[2023-12-13] MEDS: BUMEX 50 IV (10:41)
[2023-12-13 11:23] VITALS: BP 140/64
[2023-12-13] MEDS: FERRLECIT 110 MG IV (11:32)
[2023-12-13 11:36] LABS: Glucose - Point of Care 92 mg/dl (70-99)
--- NOTE | 2023-12-13 12:12 | W.PN.ID1 ---
Date of Service
Date of Service: December 13, 2023
Today's Communication
Continue cefazolin.
Assessment / Plan
Diabetic Foot Infection
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
PAD
DM1 - uncontrolled
CKD4
Congenital Heart disease
/AR
Pulm HTN
Guillain [place] syndrome, with chronic LLE weakness
Recommendations:
- Blood cultures without growth.
- 12/06 Bone path prox margin: neg osteo
OR culture S aureus (MSSA)and GBS - bone from 5th prox phalanx -confirmed with surgeon- options would be revision vs further antibiotics.
- MRI without evidence of osteomyelitis at this time, time course is relatively short
- Continue cefazolin 2 gm IV q12h
- PAD - for endovascular intervention 12/14
- Leukocytosis trending up likely due to PAD.
-Follow wbc
����������������������������������������������������������
Chief Complaint
-: Leukocytosis and Other (diabetic foot infection)
Subjective / Review of Systems
no new issues
Vital Signs / Physical Exam
Vital Signs
Vital Signs
Temp Pulse Resp BP Pulse Ox
98.4 F 96 16 140/64 99
12/13/23 11:23 12/13/23 11:23 12/13/23 11:23 12/13/23 11:23 12/13/23 11:23
Physical Exam
Constitutional: No Acute Distress and Comfortable
Pulmonary: Clear
Gastrointestinal: Soft, Non Tender and Non Distended
Objective Data
Lab Data
Lab Results
12/13/23 07:31
12/13/23 07:31
ESR 105 mm/hour (0-20) H 12/06/23 00:52
Estimated Creat Clear 25 ml/min 12/13/23 07:31
Lactic Acid 1.2 mmol/L (0.7-2.0) 12/06/23 00:52
Total Bilirubin 0.5 mg/dl (0.2-1.3) 12/13/23 07:31
AST 83 U/L (14-36) H 12/13/23 07:31
ALT 13 U/L (0-35) 12/13/23 07:31
Alkaline Phosphatase 411 U/L (38-126) H 12/13/23 07:31
C-Reactive Protein 223.70 mg/L (0.0-10.00) H 12/06/23 00:52
Most recent labs reviewed.
Micro Results:
12/07/23 16:14 Wound Culture - Final
Foot - Right S aureus-Methicillin Sensitive
Streptococcus agalactiae
Gram Stain - Final
12/07/23 16:14 Anaerobic Culture - Final
Foot - Right
12/06/23 03:26 Blood Culture - Final
Blood/Venous No Growth - Final Report
12/06/23 00:51 Blood Culture - Final
Blood/Venous No Growth - Final Report
12/06/23 22:32 MRSA Screen - Final
Nose No Methicillin Resistant Staphylococcus aureus isolated.
--- NOTE | 2023-12-13 12:48 | CM ---
Patient seen bedside.
Patient for agram with possible intervention Thursday.
Continue IV anbx.
PT recommending home care.
patient with dressing right foot.
Patient agreeable to VN, referral to [facility].
patient will need script for RW.
Plan: home with VN when stable.
--- NOTE | 2023-12-13 14:10 | W.PN.CD ---
Today's Communication / Plan
-
-Continue Bumex drip, possible transition to Bumex 2 mg PO BID as per Nephrology; creatinine 1.9-->2.2-->2.6.
Impression / Plan
-
SEVERE ACUTE ON CHRONIC HFpEF, (PCWP 47 at 77 kg on 12/09/2023)
-Unclear dry weight
-Continue Bumex drip, possible transition to Bumex 2 mg PO BID as per Nephrology; creatinine 1.9-->2.2-->2.6.
-CKD3b may be baseline
-if Cr remains stable as we diurese, we can assess to add SGLTi before d/c
-Patient will need a standing diuretic at home.
Mixed valvular heart disease
-Moderate , moderate/severe AR, mild/moderate MS
-Will likely need valve surgery in the future; evaluate as outpatient.
Congenital heart surgery as a child, no records available=> we did ask for records to be obtained
Right 5th toe amputation performed on 12/07/2023
-No cardiac complications detected from surgery
Sepsis in the setting of right 5th toe infection in a diabetic patient
PAD, vascular surgery involved
- Pt may progress to angiogram this admit
Anemia, appears acute on chronic
- Old iron studies concerning for iron deficiency => transfused and getting IV iron
Type I vs 2 DM, uncontrolled, Hgba1c 9.6%, per primary => multiple complications
- Pt hopes not to take SGLT2-I in future.
- She thinks she has type II DM, we generally do not use SGLT2-I in type I DM
Prior CVA, refused LINQ
Guillain [place] syndrome, with chronic LLE weakness
Subjective:
No cardiac events overnight. Patient states that she has pain all over her body.
Right heart cath 12/09/2023:
Weight (kg):77.1
PA (s/d/x mmHg): 99/54
PCWP (a/v/x mmHg): 55/64/47
RV (s/x mmHg): 100/17
RA (a/v/x mmHg):
Echo 12/08/2023:
CONCLUSIONS
Left ventricle is small in size.
Hyperdynamic left ventricular systolic function.
Stage II diastolic dysfunction suggestive of abnormal relaxation and increased
filling pressures.
Dense mitral annular calcification.
Mild to moderate mitral stenosis (calcific in nature with the dense MAC. The
anterior MV leaflet moves normally).
Mild mitral regurgitation.
Thickened aortic valve with restricted leaflet motion.
Moderate aortic stenosis.
Moderate aortic regurgitation.
Mild tricuspid regurgitation.
Estimated PASP 60-65 mmHg.
No significant change since the prior study of 04/07/2023.
The nature of her congenital heart disease and congenital heart surgery at age
5 is unknown. She reports correction of a blockage near her aorta or aortic
valve.
Physical Exam
Vital Signs/Labs
Vital Signs
Temp Pulse Resp BP Pulse Ox
98.4 F 96 16 140/64 99
12/13/23 11:23 12/13/23 11:23 12/13/23 11:23 12/13/23 11:23 12/13/23 11:23
12/12/23 12/13/23 12/14/23
06:59 06:59 06:59
Actual Weight 72.206 kg 73.391 kg 72.1 kg
12/13/23 07:31
12/13/23 07:31
Magnesium 2.0 mg/dl (1.6-2.3) 12/11/23 16:04
12/08/23
08:30
Mdd-H-Htrewmtfpmk Pept [id number]
Physical Exam
Constitutional: No acute distress and Comfortable
Cardiovascular: Rhythm & rate is regular, Pedal edema present (1+), Systolic murmur present (4/6) and S1S2 is normal
Respiratory: Respiratory effort normal and Lungs clear to auscul.
GI: Soft
Neuro/Psych: AO x 3
Other: Skin (Warm; right foot wrapped in gauze)
Data Reviewed
-
Date of Service: December 13, 2023
EKG: Tracing Personally Visualized and interpreted (EKG: Sinus rhythm)
Labs: Labs Reviewed by me
[2023-12-13] MEDS: NOVOLOG FLEXPEN 3 UNITS SC ×2 (14:12→18:28)
--- NOTE | 2023-12-13 14:30 | W.PN.POD ---
Today's Communication
Today's Communication
Will check repeat MRI of Rt foot
Assessment / Plan
-
Rt foot S/p 5th toe amputation 12/06
Rt foot cellulitis.
Diabetic small vessel disease.
PAD
Diabetic neuropathy.
Plan ; Changed dressings to Rt foot.
WbC count trending up from 20>24, I have d/w primary service about MRI of Rt foot to r/o any abscess or fluid collection in rt foot
IV abx per ID
Pt to use surgical shoe to Rt heel wt bear only.
Possible angiogram per vascular surgery Thursday, , Angiogram may give more details on her perfusion and further planning on further debridement depending on the extent of the disease
Subjective
Chief Complaint
Rt 5th toe gangrene
Subjective
Patient seen at bedside, doing fine, she denies any new pedal complaints . Denies any Rt foot pain, no calf pain no fever, chills.
Objective
Temp Pulse Resp BP Pulse Ox
98.4 F 96 16 140/64 99
12/13/23 11:23 12/13/23 11:23 12/13/23 11:23 12/13/23 11:23 12/13/23 11:23
12/13/23 07:31
12/13/23 07:31
Vital Signs and Lab results were reviewed.
Rt foot non palpable pedal pulses
Rt foot edematous, cooler to touch distal aspect.
Rt foot edematous Rt 5th toe amputation site has some serous drainage, has pale deep tissues at the amputation site, scant purulence expressed with manual pressure to the Rt foot, no foul odor noted . no bleeding noted
forefoot area around the bases of the digits with paler appearance,
--- NOTE | 2023-12-13 14:35 | W.PN.HOSP.TC ---
Today's Communication/Plan
-
Continue Bumex Drip
Continue antibiotics
Urgent MRI of right foot as discussed with podiatry in the setting of rising WBCs
Appreciate ID
Assessment / Plan
Assessment / Plan
Physical Exam
General: Not in acute distress
HEENT: Normocephalic, Atraumatic and Moist Mucous Membranes
Respiratory: Clear to Auscultation Bilaterally
Cardiac: Regular Rhythm and S1/S2
GI: Soft, Nontender and Nondistended. Positive bowel sounds.
Skin: Right foot wrapped in dressing
Neuro: Awake, Alert and Oriented

Assessment/Plan
Patient is a 48 y/o female with past medical history significant for HTN, DM-II, multiple prior CVAs and valvular heart disease who presents to ED complaining of pain, swelling and skin changes of the R foot / 5th toe.
Aortic Stenosis
Mitral Stenosis
Aortic Regurgitation
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
SEVERE ACUTE ON CHRONIC HFpEF, (PCWP 47 at 77 kg on 12/09/2023)
Severely elevated filling pressures
Severe Pulmonary Hypertension
- Cardiac cath on 12/09/23 showed severely elevated filling pressures and severe pulmonary HTN
- Stopped Lasix on 12/09/23
- Bumex started on 12/09/23 with great improvements in creatinine and patient feels better from this as well
- Continue Bumex Drip
- Follow daily weights, I/Os, etc.
- Continue IV diuresis -- and with improvement in status, can consider adjusting meds towards GDMT for HFpEF
Diabetic Foot Infection Right Foot/Right 5th toe gangrene status post Right 5th toe amputation and left open for secondary intention healing
with cellulitic changes up to mid palomo
Sepsis secondary to the above
- Patient presented with leukocytosis and tachycardia with evident R foot infection.
- R 5th toe essentially degloved. X-ray without evident bony involvement - would check MR for further evaluation.
- Note significant elevations in ESR 105 / CRP 223.7 which may support osteomyelitis.
- IV Zosyn stopped. ID consulted, recommendations appreciated
- Completed Meropenem.
- Status post Vancomycin
- Cefazolin started -- continue
- With rising WBC count, spoke with podiatry and ordered MRI right foot without contrast to check for fluid or abscess that is causing elevation of wbc
- Podiatry evaluation for further recommendations/status post right 5th toe amputation
- Follow for clinical improvement.
- Per vascular surgery: when patient medically optimized can move ahead with lower extremity arteriogram and possible endovascular intervention early next week (12/15/2023)
DM-I vs. DM-II
Hypoglycemia
onset age 12
- Diabetes ROUTE DELIVERER consulted, recommendations appreciated
- Continue premeal and Long-acting Insulin as ordered -- doses were recently reduced as patient was eating less and with lower glucose readings (and hypoglycemia on December 12, 2023 AM)
- Continue accuchecks
Acute On Chronic Anemia
-PRBCs ordered on 12/09/23 with good improvement
-Recheck CBC
-IV iron as ordered by nephrology
MARYLOU on CKD III
Anuria
metabolic Acidosis
- Creatinine worsened, started improving, now worsening again
- Consulted Nephrology on 12/07/23 given worsening renal function, along with acidosis and hyponatremia
- Status post Bicarb
- Avoid nephrotoxins, dose antibiotics renally
ASCVD
- Multiple prior CVAs. LINQ recorder recommended; however, patient declined.
- Continue daily ASA. Will hold Plavix acutely in the event that surgical intervention is needed.
- Continue statin, BP control, etc.
- Monitor on telemetry for now.
- Follow for any new symptoms / complaints.
Guillain [place] syndrome, with chronic LLE weakness
DVT Prophylaxis: Heparin Subq
Code Status: Full
Anticipated Discharge: > 48 hours
Subjective/Interval History
-
Date of Service: December 13, 2023
Patient was seen and examined. She reported some soreness still but it has improved some. No other significant new symptoms.
Objective Data
-
Labs:
Laboratory Results
12/13/23
07:31
WBC 24.3 H
Hgb 8.5 L
Hct 27.3 L
Plt Count 353
Sodium 141
Potassium 4.2
Chloride 101
Carbon Dioxide 33 H
BUN 78 H
Creatinine 2.6 H
Glucose 77
Calcium 8.8
Total Bilirubin 0.5
AST 83 H
ALT 13
Alkaline Phosphatase 411 H
Vital Signs:
Vital Signs
Temp Pulse Resp BP Pulse Ox
98.4 F 96 16 140/64 99
12/13/23 11:23 12/13/23 11:23 12/13/23 11:23 12/13/23 11:23 12/13/23 11:23
I&O
12/12/23 12/13/23 12/14/23
06:59 06:59 06:59
Intake Total 750 / 750
Output Total 1999 / 1999 650 / 650 400 / 400
Balance -1999 / -1999 100 / 100 -400 / -400
[2023-12-13 15:00] VITALS: BP 144/64
--- NOTE | 2023-12-13 16:03 | W.PN.NEPH.PH ---
Today's Communication / Plan
-
d/c bumex gtt
Assessment/Plan
-
IMP:
Diabetic Foot Infection Right Foot, right 5th toe amputation
Sepsis secondary to the above
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
MARYLOU with CKD stage 4
hyponatremia
Acute on chr anemia
A gap met acidosis
ASCVD
Multiple prior CVAs. LINQ recorder recommended; however, patient declined.
Chronic HFpEF
Congenital heart surgery as a child, no records available
Moderate , AR, mild to mod MS
Guillain [place] syndrome, with chronic LLE weakness
Plan:
MARYLOU-cardiorenal, cr is increasing to 2.6
Pt reports 5 more lbs to get to dry wt
will d/c Bumex gtt, possible change to intermittent dosing soon
holding bicarb for evolving met alkalosis
hb stable on IV fe infusion
Possible angio early next week as long as cr stable
for MRI for worsening leucocytosis
would hold initiating SGLT2 inhibitor this admit, also she seem type 1DM
abx per ID, on ancef
prognosis is guarded long term care pharmacist
-
-
Date of Service: December 13, 2023
CC / HPI / ROS
-
Chief Complaint:
MARYLOU with CKD
History of Present Illness:
MARYLOU/Cr up at 2.6
Na normal now
s/p RHC 6/5. PCWP 47
Hgb up to 8.5-stable but worsening leucocytosis
non oliguric
wt down to admit wt
Review of Systems:
no cp or sob
still with edema
Labs
-
Labs:
WBC 24.3 10^3/uL (4.8-10.8) H 12/13/23 07:31
RBC 3.69 10^6/uL (4.20-5.40) L 12/13/23 07:31
Hgb 8.5 g/dL (12.0-16.0) L 12/13/23 07:31
Hct 27.3 % (37.0-47.0) L 12/13/23 07:31
Plt Count 353 10^3/uL (130-400) 12/13/23 07:31
Sodium 141 mmol/L (135-145) 12/13/23 07:31
Potassium 4.2 mmol/L (3.5-5.1) 12/13/23 07:31
Chloride 101 mmol/L (98-107) 12/13/23 07:31
Carbon Dioxide 33 mmol/L (22-30) H 12/13/23 07:31
BUN 78 mg/dl (7-17) H 12/13/23 07:31
Creatinine 2.6 mg/dL (0.6-1.0) H 12/13/23 07:31
eGFR 22.08 12/13/23 07:31
Glucose 77 mg/dl (70-99) 12/13/23 07:31
Calcium 8.8 mg/dl (8.4-10.2) 12/13/23 07:31
Jbe-B-Lsypyddxkau Pept 45077 pg/ml 12/08/23 08:30
Albumin 2.8 g/dl (3.5-5.0) L 12/13/23 07:31
Physical Exam
-
Vital Signs:
Vital Signs
Temp Pulse Resp BP Pulse Ox
98.0 F 98 18 144/64 98
12/13/23 15:00 12/13/23 15:00 12/13/23 15:00 12/13/23 15:00 12/13/23 15:00
Cardiovascular:: Regular rate and rhythm
Respiratory:: Bilateral: CTA
Lung Excursion:: Normal
Abdomen:: Nontender and Soft
Extremity Edema:: +2: Bilateral:
[place] Catheter: No
[2023-12-13] MEDS: SODIUM BICARBONATE PO (16:31)
[2023-12-13] MEDS: LIPITOR 80 MG PO (16:44)
[2023-12-13 16:45] LABS: Glucose - Point of Care 110 mg/dl (70-99)
[2023-12-13 19:27] VITALS: BP 103/54
[2023-12-13 21:36] LABS: Glucose - Point of Care 126 mg/dl (70-99)
[2023-12-13] MEDS: LANTUS SC (21:37)
[2023-12-13 23:47] VITALS: BP 146/62
[2023-12-14] VITALS (12 sets, daily range): BP systolic 118–163; BP diastolic 51–77; BMI 29.1
[2023-12-14] MEDS: ANCEF 10 IV (02:06)
[2023-12-14] MEDS: TYLENOL 1000 MG PO ×3 (03:36→21:45)
[2023-12-14] MEDS: ASPIR LOW (ENTERIC COATED) 81 MG PO (07:56)
[2023-12-14] MEDS: HEPARIN 5000 UNITS SC (07:56)
[2023-12-14] MEDS: BUMEX 2 MG IV (07:56)
[2023-12-14] MEDS: COLACE PO ×3 (07:56→21:35)
--- NOTE | 2023-12-14 08:11 | PN.DE.MGMTRT ---
Insulin Management
- -
12/14/2023: Diabetes Management F/U:
Patient admitted with Right fifth toe discoloration, open wound.
PMH: CAD(CABG 1981), CKD, CVA x2, HTN, Retinopathy, CHF and T2DM. A1C 9.2%, Cr 3.0 eGFR 18.59, was taking Lantus 18-20 units @ HS and Lispro 4 units AC. Patient states she was diagnosed with diabetes at age 12 and started insulin at age 13. She
states her A1C is greatly improved. She has a glucose monitor and tests daily.
Patient is awake, alert and oriented, sitting up @ edge of bed, states she has no appetite, able to discuss diabetes management.
POD # 7 s/p Right 5th toe amputation.
Lantus dose was reduced from 12 units to 2 units on 12/11 due to poor appetite contributing to hypoglycemia as low as 38 on 12/11.
Pt did not receive any of her Lantus x 2 days. premeal insulin in range of 88 to 110. FBG 97(V) and 122 before breakfast.
Will HOLD NovoLog standing dose for now. Cont: Lantus 2 units @ HS, with low corrective.
Will cont to follow. Closely monitor and adjust insulin dose if necessary
Diabetes History
- -
Type of Diabetes: 2 requiring insulin
Pre-Admission Diabetes Regimen
12/13/23
07:31
Creatinine 2.6 H
Lab Results
Hemoglobin A1c 9.2 % (4.0-5.6) H 12/06/23 08:12
Insulin Pump Settings
IP Diabetes Regimen
12/13/23 12/13/23 12/13/23
07:31 11:30 16:43
Glucose 77
POC Glucose 92 110 H
12/13/23
21:35
Glucose
POC Glucose 126 H
Patient Education
[2023-12-14] MEDS: NOVOLOG FLEXPEN SC (08:20)
[2023-12-14 08:22] LABS: Glucose - Point of Care 122 mg/dl (70-99)
[2023-12-14] MEDS: NOVOLOG FLEXPEN-LOW RESISTANCE SC ×3 (08:22→17:11)
[2023-12-14 09:37] LABS: % Basophils 0.3 % (0-2); % Eosinophils 0.2 % (0-6); % Immature Granulocytes 1.2 % (0-0.5); % Monocytes 4.4 % (1.7-9.3); % Neutrophils 87.9 % (42.2-75.2); Absolute Basophils 0.1 10^3/uL (0-0.2); Absolute Eosinophils 0.1 10^3/uL (0-0.7); Absolute Immature Granulocytes 0.4 10^3/uL (0-0.05); Absolute Lymphocytes 1.9 10^3/uL (1.2-3.4); Absolute Monocytes 1.4 10^3/uL (0.1-0.6); Absolute Neutrophils 28.2 10^3/uL (1.4-6.5); Hematocrit 27.4 % (37.0-47.0); Hemoglobin 8.5 g/dL (12.0-16.0); Mean Corpuscular Hgb 22.9 pg (27.0-31.0); Mean Corpuscular Volume 73.9 fL (81.0-99.0); Mean Platelet Volume 9.1 fL (7.4-10.4); Nucleated Red Blood Cells % 0.1 %; Platelet Count 361 10^3/uL (130-400); Red Blood Cell Count 3.71 10^6/uL (4.20-5.40); White Blood Cell Count 32.2 10^3/uL (4.8-10.8)
[2023-12-14 10:10] LABS: ALT (SGPT) < 10 U/L (0-35); AST (SGOT) 77 U/L (14-36); Alkaline Phosphatase 455 U/L (38-126); Blood Urea Nitrogen 90 mg/dl (7-17); Calcium 8.9 mg/dl (8.4-10.2); Carbon Dioxide 25 mmol/L (22-30); Chloride 95 mmol/L (98-107); Estimated Creatinine Clearance 24 ml/min; Glucose 97 mg/dl (70-99); Potassium 4.5 mmol/L (3.5-5.1); Sodium 134 mmol/L (135-145); Total Bilirubin 0.7 mg/dl (0.2-1.3)
[2023-12-14 11:55] LABS: Glucose - Point of Care 114 mg/dl (70-99)
--- NOTE | 2023-12-14 12:35 | W.PN.UPDATE ---
Update Note
Progress Note Update
Received message from nephrology indicating that angiography currently will push kidneys over the edge to dialysis. Very high risk from a renal standpoint. Recommend debridement of any infection as warranted. Either patient needs to except risk
of potential hemodialysis (or even likely hemodialysis) with contrast based procedure for attempted limb salvage, or alternatively patient is at high risk for limb loss.
--- NOTE | 2023-12-14 12:48 | W.PN.CD ---
Addendum entered and electronically signed by Timothy Hernandez MD 12/14/23 16:35:
-
-
Cardiac risk assessment prior to noncardiac surgery: Elevated risk. Fortunately she tolerated recent foot surgery without cardiovascular complications despite severe decompensated heart failure. She is now more compensated than she was. No role
for additional cardiac testing at this time (risks outweigh the benefit). No evidence of an acute coronary syndrome. No significant arrhythmias on child monitor. We are controlling heart failure as best as we can. I would proceed at elevated
risk with usual surgical care and usual expert anesthesia care.
-
-
Original Note:
Today's Communication / Plan
-
I placed Bumex on HOLD
Impression / Plan
-
Severe acute on chronic HFpEF, (PCWP 47 at 77 kg on 12/09/2023)
-Unclear dry weight
-Will place diuretic on Hold. Some HFpEF patients respond poorly to aggressive rapid diuresis
-Restart Bumex 2 mg once or twice daily in a few days => will need diuretic regimen as outptient
-Can consider starting an SGLTi before d/c
Mixed valvular heart disease
-Moderate , moderate/severe AR, mild/moderate MS
-Will likely need valve surgery in the future
Congenital heart surgery as a child, no records available=> we did ask for records to be obtained
Right 5th toe amputation performed on 12/07/2023
-No cardiac complications detected from surgery
Sepsis in the setting of right 5th toe infection in a diabetic patient
PAD, vascular surgery involved
- Pt may progress to angiogram this admit => high risk of progressive renal failure noted
Anemia, appears acute on chronic
- Old iron studies concerning for iron deficiency => transfused and getting IV iron
Type I vs 2 DM, uncontrolled, Hgba1c 9.6%, per primary => multiple complications
- Pt hopes not to take SGLT2-I in future.
- She thinks she has type II DM, we generally do not use SGLT2-I in type I DM
Prior CVA, refused LINQ
Guillain [place] syndrome, with chronic LLE weakness
Subjective:
No CP or dyspnea
Right heart cath 12/09/2023:
Weight (kg):77.1
PA (s/d/x mmHg): 99/31/54
PCWP (a/v/x mmHg): 55/64/47
RV (s/x mmHg): 100/17
RA (a/v/x mmHg):
Echo 12/08/2023:
CONCLUSIONS
Left ventricle is small in size.
Hyperdynamic left ventricular systolic function.
Stage II diastolic dysfunction suggestive of abnormal relaxation and increased
filling pressures.
Dense mitral annular calcification.
Mild to moderate mitral stenosis (calcific in nature with the dense MAC. The
anterior MV leaflet moves normally).
Mild mitral regurgitation.
Thickened aortic valve with restricted leaflet motion.
Moderate aortic stenosis.
Moderate aortic regurgitation.
Mild tricuspid regurgitation.
Estimated PASP 60-65 mmHg.
No significant change since the prior study of 04/07/2023.
The nature of her congenital heart disease and congenital heart surgery at age
5 is unknown. She reports correction of a blockage near her aorta or aortic
valve.
Physical Exam
Vital Signs/Labs
Vital Signs
Temp Pulse Resp BP Pulse Ox
98.2 F 98 16 146/64 100
12/14/23 11:10 12/14/23 11:00 12/14/23 11:00 12/14/23 11:00 12/14/23 11:00
12/13/23 12/14/23 12/15/23
06:59 06:59 06:59
Actual Weight 73.391 kg 74.474 kg
12/14/23 08:46
12/14/23 08:46
Magnesium 2.0 mg/dl (1.6-2.3) 12/14/23 08:46
12/08/23
08:30
Dms-S-Rrfzqejynqc Pept [id number]
Physical Exam
Constitutional: No acute distress
Cardiovascular: Rhythm & rate is regular
Respiratory: Respiratory effort normal
GI: Distention absent
Neuro/Psych: AO x 3
Data Reviewed
-
Date of Service: December 14, 2023
--- NOTE | 2023-12-14 12:53 | CM ---
Patient s/p MRI today.
Continue to monitor labs.
IV anbx, wound care.
Plan: home with [facility] when stable
[2023-12-14] MEDS: FERRLECIT 110 MG IV (12:58)
--- NOTE | 2023-12-14 13:58 | W.PN.POD ---
Today's Communication
Today's Communication
Scheduled her for debridement of Rt foot around 6 pm
Assessment / Plan
-
Rt foot S/p 5th toe amputation 12/06
Rt foot cellulitis.
Diabetic small vessel disease.
PAD
Diabetic neuropathy.
Plan ; Changed dressings to Rt foot.
WbC count trending up from 20>24 >32,
Rt foot MRI from today shows Large 5.0 cm region of nonenhancing soft tissue necrosis in the lateral right forefoot, No MRI evidence for rim-enhancing enhancing fluid collection to suggest an abscess.
IV abx per ID
Pt to use surgical shoe to Rt heel wt bear only.
Patients renal function has declined again so angiogram is pushed back due to risk of kidney failure.
I ahve discussed with hosp service and ID and patient that , will need further debridement of the Rt foot lateral aspect, leave it open also assess her blood flow .
No guarantees given to save the limb, explained the procedure and all complications to thte patient , she understands and agrees to the debridement today.
Subjective
Chief Complaint
Rt 5th toe gangrene
Subjective
Patient seen at bedside, in no acute distress, awake, alert, oriented, no SOB or chest pain, she denies any new pedal complaints . Denies any Rt foot pain, no calf pain no fever, chills.
Objective
Temp Pulse Resp BP Pulse Ox
98.2 F 98 16 146/64 100
12/14/23 11:10 12/14/23 11:00 12/14/23 11:00 12/14/23 11:00 12/14/23 11:00
12/14/23 08:46
12/14/23 08:46
Vital Signs and Lab results were reviewed.
Rt foot non palpable pedal pulses
Rt foot increased edema, pale and cooler to touch distal aspect.
Rt 5th toe amputation site has some serous drainage, has pale deep tissues at the amputation site, no foul odor noted . no bleeding noted
forefoot area around the bases of the digits with paler appearance, no crepitus felt, no signs of any abscess felt, no red streaking up the leg
--- NOTE | 2023-12-14 14:01 | W.PN.ID1 ---
Date of Service
Date of Service: December 14, 2023
Today's Communication
Continue antibiotics. Transition to Zosyn.
Assessment / Plan
Diabetic Foot Infection
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
PAD
DM1 - uncontrolled
CKD4
Congenital Heart disease
/AR
Pulm HTN
Guillain [place] syndrome, with chronic LLE weakness
Recommendations:
Blood cultures without growth.
MRI now reveals presence of suspected osteomyelitis of the fifth met head and proximal phalanx of the fourth toe. Leukocytosis worsening, and may be related to devitalized tissue in the area.
Will place back on Zosyn for now for broader coverage, including anaerobic. Patient for tentative OR later today.
Patient in tenuous situation, as it is not clear how much blood flow and antibiotics are actually getting to the area of concern, given underlying vascular issues. Additionally, patient had extreme risk of kidney injury with potential contrast load
for angio.
-Follow wbc
Patient at high risk for limb loss.
����������������������������������������������������������
Chief Complaint
-: Leukocytosis and Other (diabetic foot infection)
Subjective / Review of Systems
Review of Systems: No Fever and No Chills
Vital Signs / Physical Exam
Vital Signs
Vital Signs
Temp Pulse Resp BP Pulse Ox
98.2 F 98 16 146/64 100
12/14/23 11:10 12/14/23 11:00 12/14/23 11:00 12/14/23 11:00 12/14/23 11:00
Physical Exam
Constitutional: No Acute Distress, Comfortable and Non-toxic
Eyes: Sclera Anicteric
Pulmonary: Non Labored
Gastrointestinal: Non Distended
Extremities: Edema (B/L LE's)
Wound: Other (Right lateral foot with open wound. Area of devitalized tissue noted. Serous drainage appreciated. Some skin slough in the base.)
Neurological: Awake and Alert
Objective Data
Lab Data
Lab Results
12/14/23 08:46
12/14/23 08:46
ESR 105 mm/hour (0-20) H 12/06/23 00:52
Estimated Creat Clear 24 ml/min 12/14/23 08:46
Lactic Acid 1.2 mmol/L (0.7-2.0) 12/06/23 00:52
Total Bilirubin 0.7 mg/dl (0.2-1.3) 12/14/23 08:46
AST 77 U/L (14-36) H 12/14/23 08:46
ALT < 10 U/L (0-35) 12/14/23 08:46
Alkaline Phosphatase 455 U/L (38-126) H 12/14/23 08:46
C-Reactive Protein 223.70 mg/L (0.0-10.00) H 12/06/23 00:52
Most recent labs reviewed.
Micro Results:
12/07/23 16:14 Wound Culture - Final
Foot - Right S aureus-Methicillin Sensitive
Streptococcus agalactiae
Gram Stain - Final
12/07/23 16:14 Anaerobic Culture - Final
Foot - Right
12/06/23 03:26 Blood Culture - Final
Blood/Venous No Growth - Final Report
12/06/23 00:51 Blood Culture - Final
Blood/Venous No Growth - Final Report
12/06/23 22:32 MRSA Screen - Final
Nose No Methicillin Resistant Staphylococcus aureus isolated.
Imaging:
12/14/2023 MRI RLE: 1. PROBABLE ACUTE OSTEOMYELITIS in the right 5th metatarsal head and proximal phalanx of the 4th toe. 2. Large 5.0 cm region of nonenhancing soft tissue necrosis in the lateral right forefoot. 3. No MRI evidence for
rim-enhancing enhancing fluid collection to suggest an abscess. 4. Recent amputation of the 5th toe. 5. Severe acute myositis or muscle denervation throughout the right foot. 6. Severe diffuse cellulitis.
Care Review
Plan reviewed with: Physician (Podiatry; Vascular Surgery; Nephrology; Hospitalist)
[2023-12-14] MEDS: ANCEF IV (14:18)
--- NOTE | 2023-12-14 14:27 | PTCARENOTE ---
patient to remain on tele monitoring as per Dr Haq
--- NOTE | 2023-12-14 14:52 | W.PN.NEPH.PH ---
Today's Communication / Plan
-
follow bmp
maintain IV bumex as patient volume overloaded
discussed possible HD outcome later this week if MARYLOU exacerbates
Assessment/Plan
-
IMP:
Diabetic Foot Infection Right Foot, right 5th toe amputation
Sepsis secondary to the above
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
MARYLOU with CKD stage 4
hyponatremia
Acute on chr anemia
A gap met acidosis
ASCVD
Multiple prior CVAs. LINQ recorder recommended; however, patient declined.
Chronic HFpEF
Congenital heart surgery as a child, no records available
Moderate , AR, mild to mod MS
Guillain [place] syndrome, with chronic LLE weakness
Plan:
MARYLOU-cardiorenal, cr is increasing to 2.8, uop ~150cc, weights up, BUN~90
Pt reports 5 more lbs to get to dry wt
on 2mg IV BID of bumex
holding bicarb for evolving met alkalosis
hgb stable on IV fe infusion
would delay angio: re worsening MARYLOU, for debridement of foot today by podiatry
for MRI for worsening leucocytosis
would hold initiating SGLT2 inhibitor this admit, also she seem type 1DM
abx per ID, on ancef
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
may be approaching HD requirement over next 24-48hrs
-
-
Date of Service: December 14, 2023
CC / HPI / ROS
-
Chief Complaint:
MARYLOU with CKD
History of Present Illness:
MARYLOU/Cr up at 2.8
Na normal now
s/p RHC 6/5. PCWP 47
Hgb up to 8.5-stable but worsening leucocytosis
wt down to admit wt
Review of Systems:
no cp or sob
still with edema
uop 150cc
Labs
-
Labs:
WBC 32.2 10^3/uL (4.8-10.8) H 12/14/23 08:46
RBC 3.71 10^6/uL (4.20-5.40) L 12/14/23 08:46
Hgb 8.5 g/dL (12.0-16.0) L 12/14/23 08:46
Hct 27.4 % (37.0-47.0) L 12/14/23 08:46
Plt Count 361 10^3/uL (130-400) 12/14/23 08:46
Sodium 134 mmol/L (135-145) L 12/14/23 08:46
Potassium 4.5 mmol/L (3.5-5.1) 12/14/23 08:46
Chloride 95 mmol/L (98-107) L 12/14/23 08:46
Carbon Dioxide 25 mmol/L (22-30) 12/14/23 08:46
BUN 90 mg/dl (7-17) H 12/14/23 08:46
Creatinine 2.8 mg/dL (0.6-1.0) H 12/14/23 08:46
eGFR 20.20 12/14/23 08:46
Glucose 97 mg/dl (70-99) 12/14/23 08:46
Calcium 8.9 mg/dl (8.4-10.2) 12/14/23 08:46
Mmx-P-Qmdntavttjm Pept 64936 pg/ml 12/08/23 08:30
Albumin 3.0 g/dl (3.5-5.0) L 12/14/23 08:46
Physical Exam
-
Vital Signs:
Vital Signs
Temp Pulse Resp BP Pulse Ox
98.2 F 98 16 146/64 100
12/14/23 11:10 12/14/23 11:00 12/14/23 11:00 12/14/23 11:12/14/23 11:00
Cardiovascular:: Regular rate and rhythm
Respiratory:: Bilateral: Coarse
Lung Excursion:: Normal
Abdomen:: Nontender and Soft
Bowel Sounds:: Normal
--- NOTE | 2023-12-14 16:31 | W.PN.HOSP.TC ---
Today's Communication/Plan
-
see note
hold bumex
f/u renal function
Assessment / Plan
Assessment / Plan
Lower right foot MRI 12/06
1. 2.5 cm ABSCESS dorsal to the right 5th MTP joint.
2. SOFT TISSUE EMPHYSEMA tracking around the proximal phalanx of the right 5th toe.
3. SEVERE CELLULITIS throughout the right forefoot.
4. No MRI evidence for acute osteomyelitis.
5. Diffuse signal abnormality throughout the muscles of the right foot (either severe diffuse myositis or acute on chronic muscle denervation secondary to diabetes mellitus).
Lower right foot MRI 12/13
1. PROBABLE ACUTE OSTEOMYELITIS in the right 5th metatarsal head and proximal phalanx of the 4th toe.
2. Large 5.0 cm region of nonenhancing soft tissue necrosis in the lateral right forefoot.
3. No MRI evidence for rim-enhancing enhancing fluid collection to suggest an abscess.
4. Recent amputation of the 5th toe.
5. Severe acute myositis or muscle denervation throughout the right foot.
6. Severe diffuse cellulitis.
US abd
IMPRESSION:
1. Right lower extremity: IVANIA 1.08 within normal limits. TBI mildly reduced 0.60. Eccentric wall calcification noted in vessels. Proximal superficial femoral artery velocity elevation of 357 cm/s with velocity ratio of 2.22 consistent with at least
50-74% stenosis. Monophasic waveforms noted distal to the stenosis.
2. Left lower extremity: IVANIA 1.31 within normal limits. TBI minimally reduced 0.67. Eccentric wall calcification noted in vessels. Multiphasic waveforms throughout lower extremity arteries with distal superficial femoral artery velocity elevation
245 cm/s and velocity ratio of 2.13 consistent with likely 50-74% stenosis. Multiphasic waveforms are maintained distal to the stenosis. Continuous Doppler waverforms at the dorsalis pedis and posterior tibial arteries also remain multiphasic.

1. Right Diabetic foot infection
s/p 5th toe amputation POD #4
Right foot cellulitis
-Patient presented for initial right foot fifth dual infection/cellulitis
-MRI of the foot showing soft tissue emphysema/cellulitis and abscess of MTP joint of fifth toe
-Underwent fifth toe amputation by podiatry, patient is postop day 4
-Intraoperative culture growing MSSA/Streptococcus agalactia. Intraoperative bone margin pathology is negative for any osteomyelitis
-Patient started to having new worsening leukocytosis and a repeat MRI today showing large soft tissue necrosis area
-Antibiotic escalated to Zosyn again from Ancef
-Podiatry planning for patient to be taken to the OR for debridement. Patient at high risk of limb loss with poor vasculature
2. MARYLOU with CKD stage IV
AGAP metabolic acidosis
Proteinuria
-cr improved to 1.8 with bumex drip, now again up trending
-Urine protein/cr ratio of 0.6
-Creatinine 2.8 today, Bumex further doses being held
-Patient getting oliguric
-Discussed with nephrology, renal function needs to be monitored, may need HD if not improved.
3. PAD
-Significant arterial disease with possible suggestive of bilateral proximal superficial femoral artery stenosis of 50 to 74%
-Vascular surgery involved in care and patient currently not a candidate for angiography due to renal failure
-Unfortunately patient did risk of nonhealing right lower extremity wound and further need of amputation without vascular intervention.
4. Acute on chronic diastolic congestive heart failure
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
-Patient weight down trended with Bumex drip, some repeat upward trend
-Currently diuretics being held with worsening renal failure
-Cardiology following and help appreciated
5. Diabetes mellitus
Hypoglycemia
-presumed Type I as diagnosed age 12.
- Diabetes COMBAT SYSTEMS OPERATOR consulted, recommendations appreciated
6. Iron def anemia
-Ferritin of 74.6 with saturation of 12% and acute phase suggestive of iron deficiency anemia
-Got 7 doses of IV Ferrlecit.
7. h/o of CVA
Legally blind in right eye
- Multiple prior CVAs. LINQ recorder recommended; however, patient declined.
- Continue daily ASA. Will hold Plavix acutely in the event that surgical intervention is needed.
Guillain [place] syndrome, with chronic LLE weakness
Hyponatremia
Moderate /AR
Mild to mod MS
DVT Prophylaxis: Heparin Subq
Code Status: Full
Case discussed with cardiology/vascular surgery/nephrology/podiatry
Patient have complex medical condition at this point and with underlying known improving renal failure patient at high risk of further complication. Patient not a good candidate for dye exposure with poor renal function, which in turn limits
patient chances of angioplasty and wound healing potential. Unfortunately patient at high risk of limb loss/needing amputation and dialysis this admit.
Total time spent : 53 mins
I personally saw and examined the patient.
I have reviewed all diagnostic interpretations and treatment plans as written.
Time includes patient management by me, time spent at the patients bedside, time to review lab and imaging results, discussing patient care, documentation in the medical record, and time spent with the family or caregiver and discussing care plan
with RN/Consultants.
Anticipated Discharge: > 48 hours
Subjective/Interval History
-
Date of Service: December 14, 2023
Patient resting comfortably in bed, denies of having excessive right foot pain
No other issues overnight
Objective Data
-
Labs:
Laboratory Results
12/14/23
08:46
WBC 32.2 H
Hgb 8.5 L
Hct 27.4 L
Plt Count 361
Sodium 134 L
Potassium 4.5
Chloride 95 L
Carbon Dioxide 25
BUN 90 H
Creatinine 2.8 H
Glucose 97
Calcium 8.9
Total Bilirubin 0.7
AST 77 H
ALT < 10
Alkaline Phosphatase 455 H
Vital Signs:
Vital Signs
Temp Pulse Resp BP Pulse Ox
99.5 F 98 14 146/63 100
12/14/23 15:00 12/14/23 15:00 12/14/23 15:00 12/14/23 15:00 12/14/23 15:00
I&O
12/13/23 12/14/23 12/15/23
06:59 06:59 06:59
Intake Total 750 / 750 862 / 862
Output Total 650 / 650 550 / 550
Balance 100 / 100 312 / 312
Review of Systems
-
Respiratory: Reports No Symptoms
Cardiac: Reports No Symptoms
Abdomen/GI: Reports No Symptoms
Physical Exam
-
General: Comfortable; Negative Obese
HEENT: Negative Oxygen
Respiratory: Clear to Auscultation
Cardiac: Regular Rhythm and S1/S2; Negative Murmur
GI: Soft, Nontender and Nondistended
Musculoskeletal: Other (Right lower extremity dressing in place )
Neuro: Awake, Alert, Oriented and No Motor Deficits
Psych: Calm
[2023-12-14 16:35] LABS: Glucose - Point of Care 144 mg/dl (70-99)
[2023-12-14] MEDS: ZOSYN 50 IV ×2 (17:47→23:36)
[2023-12-14] MEDS: LIPITOR 80 MG PO (17:54)
--- NOTE | 2023-12-14 21:08 | W.SUR.POST ---
Surgical Immediate Post Op
Note
Pre Op Diagnosis: Rt foot abscess/necrosis lateral foot
Post Op Diagnosis: Same as above
Procedure Performed: Rt foot necrotic tissue debridement along with 4th toe amputation
Primary Surgeon: De. Jacinto PEREZ
Secondary Surgeons: None
Anesthesia: MAC with local block
Estimated Blood Loss: 5 cc's
Fluids: none
Drains/Shunts: None
Specimens/Cultures: Aerobic and anaerobic cultures sent
Doppler/Duplex/Angio (Y/N): No
Complications:none
Operative Findings: Deep tissue necrosis around lateral 4th and 5th metatarsal areas distal aspect . some purulence noted
Patient stable in PACU with stable vital signs and intact vascular status
[2023-12-14 21:11] LABS: Glucose - Point of Care 134 mg/dl (70-99)
--- NOTE | 2023-12-14 21:35 | PTCARENOTE ---
Patient arrived back to room from OR. Surgical dressing intact. Patient AAO x3, on RA, in no acute distress. RLE elevated in bed. Neurovascular checks. Patient has sensation in RLE and can wiggle toes. No complaints of pain. Will continue to
monitor. Vital signs protocol initiated. Call ambriz within reach.
[2023-12-14] MEDS: HEPARIN SC (21:39)
[2023-12-14] MEDS: LANTUS SC (21:40)
[2023-12-15] VITALS (12 sets, daily range): BP systolic 104–137; BP diastolic 45–63; BMI 29.7
[2023-12-15] MEDS: ZOSYN 50 IV ×4 (05:20→22:16)
[2023-12-15] MEDS: TYLENOL 1000 MG PO ×3 (05:20→20:33)
[2023-12-15 06:42] LABS: % Basophils 0.3 % (0-2); % Eosinophils 0.2 % (0-6); % Immature Granulocytes 1.7 % (0-0.5); % Lymphocytes 4.9 % (20.5-51.1); % Monocytes 3.8 % (1.7-9.3); % Neutrophils 89.1 % (42.2-75.2); Absolute Basophils 0.1 10^3/uL (0-0.2); Absolute Eosinophils 0.1 10^3/uL (0-0.7); Absolute Immature Granulocytes 0.6 10^3/uL (0-0.05); Absolute Lymphocytes 1.6 10^3/uL (1.2-3.4); Absolute Monocytes 1.3 10^3/uL (0.1-0.6); Absolute Neutrophils 29.5 10^3/uL (1.4-6.5); Hematocrit 21.3 % (37.0-47.0); Hemoglobin 7.2 g/dL (12.0-16.0); Mean Corp Hgb Conc. 33.8 g/dL (33.0-37.0); Mean Corpuscular Hgb 23.6 pg (27.0-31.0); Mean Corpuscular Volume 69.8 fL (81.0-99.0); Nucleated Red Blood Cells % 0.1 %; Platelet Count 313 10^3/uL (130-400); Red Blood Cell Count 3.05 10^6/uL (4.20-5.40); Red Cell Dist. Width 19.2 % (11.5-14.5); White Blood Cell Count 33.1 10^3/uL (4.8-10.8)
--- NOTE | 2023-12-15 07:25 | PN.DE.MGMTRT ---
Insulin Management
- -
12/15/2023: Diabetes Management Follow up:
Patient admitted with Right fifth toe discoloration, open wound.
PMH: CAD(CABG 1981), CKD, CVA x2, HTN, Retinopathy, CHF and T2DM. A1C 9.2%, Cr 3.0 eGFR 18.59, was taking Lantus 18-20 units @ HS and Lispro 4 units AC. Patient states she was diagnosed with diabetes at age 12 and started insulin at age 13. She
states her A1C is greatly improved. She has a glucose monitor and tests daily.
Patient is awake, alert and oriented, resting in bed, able to discuss diabetes management.
POD # 8 s/p Right 5th toe amputation, POD 1 s/p tissue debridement R foot and amputation 4th toe.
Patient was NPO for OR yesterday, glucose range 114 to 144. received no Lantus @ HS x 2 days.
1800 calorie diet ordered this AM, will change to 1600 calorie as she is 5'3'. Fasting glucose this AM 159, will continue 2 units lantus @ hs with NovoLog 3 units AC (to be given if patient eats meal and low corrective.
Will cont to follow. Closely monitor and adjust insulin dose if necessary
Discussed with patients nurse.
Diabetes History
- -
Type of Diabetes: 2 requiring insulin
Pre-Admission Diabetes Regimen
12/14/23 12/15/23
08:46 06:02
Creatinine 2.8 H Cancelled
Lab Results
Hemoglobin A1c 9.2 % (4.0-5.6) H 12/06/23 08:12
Insulin Pump Settings
IP Diabetes Regimen
12/14/23 12/14/23 12/14/23
08:21 08:46 11:53
Glucose 97
POC Glucose 122 H 114 H
12/14/23 12/14/23 12/15/23
16:34 21:09 06:02
Glucose Cancelled
POC Glucose 144 H 134 H
Patient Education
[2023-12-15 07:46] LABS: Glucose - Point of Care 159 mg/dl (70-99)
[2023-12-15 08:16] LABS: Glucose - Point of Care 159 mg/dl (70-99)
[2023-12-15] MEDS: ASPIR LOW (ENTERIC COATED) 81 MG PO (08:18)
[2023-12-15] MEDS: HEPARIN 5000 UNITS SC ×2 (08:18→20:34)
[2023-12-15] MEDS: NOVOLOG FLEXPEN-LOW RESISTANCE 1 UNITS SC ×2 (08:19→12:49)
[2023-12-15] MEDS: COLACE PO ×2 (08:20→20:33)
[2023-12-15 09:24] LABS: ALT (SGPT) < 10 U/L (0-35); AST (SGOT) 58 U/L (14-36); Albumin 2.6 g/dl (3.5-5.0); Alkaline Phosphatase 373 U/L (38-126); Blood Urea Nitrogen 90 mg/dl (7-17); Calcium 8.2 mg/dl (8.4-10.2); Carbon Dioxide 26 mmol/L (22-30); Chloride 95 mmol/L (98-107); Estimated Creatinine Clearance 19 ml/min; Glucose 123 mg/dl (70-99); Potassium 4.8 mmol/L (3.5-5.1); Sodium 132 mmol/L (135-145); Total Bilirubin 0.6 mg/dl (0.2-1.3); Total Protein 6.1 g/dl (6.3-8.2); eGFR 14.94
[2023-12-15] MEDS: ROXICODONE 2.5 MG PO (10:07)
--- NOTE | 2023-12-15 10:36 | W.PN.CD ---
Addendum entered and electronically signed by Evie Arteaga MD 12/15/23 13:17:
I saw and examined the patient.
The PLASTICS FABRICATOR's note was reviewed and I agree with the note.
Comment: She is fatigued. ON exam she has rrr, systolic murmurs in all areas. Lungs cta. feet with wraps and dressing. She has progressive renal failure, I wonder if additional etiology? She has 2.59 on rhc speaks against a pure cardiorenal
cause. She is volume overloaded and pcwp was makedly elevated at 47 at 77.1 kg, ideally needs further diuresis. Nephrology following, with Cr now up to 3.6 with I/O 312mll positive, some strategy of diuresis needed. D/w Dr Haq, await neprhology
input.
Original Note:
Today's Communication / Plan
-
Transfusion per primary
Hold diuretic
Impression / Plan
-
Severe acute on chronic HFpEF, (PCWP 47 at 77 kg on 12/09/2023)
-Unclear dry weight
-Will place diuretic on hold in the setting of MARYLOU
-She will need diuretic regimen as outpatient
-Can consider starting an SGLT2i before D/C if okay with Nephrology
MARYLOU, cardiorenal
-May be approaching HD requirement
-Creatinine 3.6 this morning
Mixed valvular heart disease
-Moderate , moderate/severe AR, mild/moderate MS
-Will likely need valve surgery in the future
-Records have been requested
Congenital heart surgery as a child, no records available, multiple requests
Right 5th toe osteomyelitis
-Amputation performed on 12/07/2023
-Debridement 12/14/2023
-No cardiac complications detected from surgery
Sepsis in the setting of right 5th toe infection in a diabetic patient
PAD, vascular surgery involved, high risk of progressive renal failure noted
Anemia, appears acute on chronic
-Old iron studies concerning for iron deficiency => transfused and getting IV iron
-Hgb down to 7.2 this morning, transfuse per primary service
Type I vs 2 DM, uncontrolled, Hgba1c 9.6%, per primary => multiple complications
-Pt hopes not to take SGLT2-I in future.
-She thinks she has type II DM, we generally do not use SGLT2-I in type I DM
Prior CVA, refused LINQ
Guillain [place] syndrome, with chronic LLE weakness
Subjective:
No CP, ARREGUIN, or dizziness
DATA:
RHC 12/09/2023:
Weight (kg):77.1
PA (s/d/x mmHg): 99/31/54
PCWP (a/v/x mmHg): 55/64/47
RV (s/x mmHg): 100/17
RA (a/v/x mmHg):
Echo 12/08/2023:
Left ventricle is small in size.
Hyperdynamic left ventricular systolic function.
Stage II diastolic dysfunction suggestive of abnormal relaxation and increased
filling pressures.
Dense mitral annular calcification.
Mild to moderate mitral stenosis (calcific in nature with the dense MAC. The
anterior MV leaflet moves normally).
Mild mitral regurgitation.
Thickened aortic valve with restricted leaflet motion.
Moderate aortic stenosis.
Moderate aortic regurgitation.
Mild tricuspid regurgitation.
Estimated PASP 60-65 mmHg.
No significant change since the prior study of 04/07/2023.
The nature of her congenital heart disease and congenital heart surgery at age
5 is unknown. She reports correction of a blockage near her aorta or aortic
valve.
Physical Exam
Vital Signs/Labs
Vital Signs
Temp Pulse Resp BP Pulse Ox
98.1 F 97 18 132/55 96
12/15/23 07:15 12/15/23 07:15 12/15/23 07:15 12/15/23 07:15 12/15/23 07:15
12/14/23 12/15/23 12/16/23
06:59 06:59 06:59
Actual Weight 74.474 kg 75.92 kg
12/15/23 06:02
12/15/23 08:48
Magnesium 2.0 mg/dl (1.6-2.3) 12/14/23 08:46
12/08/23
08:30
Kba-Z-Ksnaxxrvatu Pept [id number]
Physical Exam
Constitutional: No acute distress and Comfortable
EENT: Anicteric and Moist mucous membranes
Cardiovascular: Rhythm & rate is regular, Pedal edema is absent and S1S2 is normal
Respiratory: Respiratory effort normal and Lungs clear to auscul.
GI: Soft, Distention absent, Flat, Non tender and Normal bowel sounds
Neuro/Psych: AO x 3
Other: Skin (warm and dry)
Data Reviewed
-
Date of Service: December 15, 2023
Labs: Labs Reviewed by me
Old Records: Requested
--- NOTE | 2023-12-15 11:38 | W.PN.POD ---
Today's Communication
Today's Communication
Keep an eye on Rt foot surgical dressings to see any more saturation with blood
Assessment / Plan
-
Rt foot S/p 5th toe amputation 12/06
S/P Rt foot # 2 debridement and Rt 4th toe amputation POD #1
Rt foot cellulitis.
Diabetic small vessel disease.
PAD
Diabetic neuropathy.
Plan ; Changed dressings to Rt foot , applied compressive dressings to Rt foot
Will keep an eye on dressings , if there is still bleeding, will apply topical thrombin this afternoon
WbC count trending up from 20>24 >32,
No wt bearing today on Rt foot, commode to bedside
Pt to use surgical shoe to Rt heel wt bear only.
Patients renal function has declined again so angiogram is pushed back due to risk of kidney failure.
Subjective
Chief Complaint
Rt 5th toe gangrene
Subjective
Patient seen at bedside, in no acute distress, awake, alert, oriented, no SOB or chest pain, she denies any new pedal complaints . Denies any Rt foot pain, no calf pain no fever, chills.
Objective
Temp Pulse Resp BP Pulse Ox
97.5 F 94 18 126/54 100
12/15/23 11:20 12/15/23 11:20 12/15/23 11:20 12/15/23 11:20 12/15/23 11:20
12/15/23 06:02
12/15/23 08:48
Vital Signs and Lab results were reviewed.
Rt foot palpable Dp and dopplerable PT pedal pulses
Rt foot decreased edema .
Rt foot surgical debrided site and 4th toe amputation noted to have some minimal bloody oozing, no new necrosis, no foul odor noted. has healthy deep tissues at the amputation site.
forefoot area around the bases of the digits with paler appearance, no crepitus felt, no signs of any abscess felt, no red streaking up the leg
[2023-12-15 12:44] LABS: Glucose - Point of Care 146 mg/dl (70-99)
[2023-12-15] MEDS: NOVOLOG FLEXPEN 3 UNITS SC ×2 (12:48→16:51)
--- NOTE | 2023-12-15 14:16 | W.PN.NEPH.PH ---
Today's Communication / Plan
-
Restart Bumex drip 1 mg per/hr
Follow BMP
Anticipate need for dialysis within next 24 to 48 hours
Assessment/Plan
-
IMP:
Diabetic Foot Infection Right Foot, right 5th toe amputation
Sepsis secondary to the above
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
MARYLOU with CKD stage 4
hyponatremia
Acute on chr anemia
A gap met acidosis
ASCVD
Multiple prior CVAs. LINQ recorder recommended; however, patient declined.
Chronic HFpEF
Congenital heart surgery as a child, no records available
Moderate , AR, mild to mod MS
Guillain [place] syndrome, with chronic LLE weakness
Plan:
MARYLOU-cardiorenal, cr is increasing to 3.6, uop ~325cc, weights up, BUN~90
weights up
restart bumex gtt at 1mg /hr as patient is with significant volume overload
holding bicarb for evolving met alkalosis
hgb worsening despite on IV fe infusion
would delay angio: re worsening MARYLOU, s/p debridement of foot today by podiatry
Lower extremity MRI reviewed: Report notes probable acute osteomyelitis in the right fifth metatarsal head and proximal phalanx of the fourth toe 5 cm region of soft tissue necrosis and lateral right forefoot
would hold initiating SGLT2 inhibitor this admit, also she seem type 1DM
abx per ID, on ancef
prognosis is guarded skilled nursing
may be approaching HD requirement over next 24-48hrs
Patient at high clinical risk with worsening renal failure requiring IV diuretic infusion in setting of cardiorenal syndrome
-
-
Date of Service: December 15, 2023
CC / HPI / ROS
-
Chief Complaint:
MARYLOU with CKD
History of Present Illness:
MARYLOU/Cr worsening to 3.6
Na dropping to 132
s/p RHC 6/5. PCWP 47
Hgb up to 7.2-stable but worsening leucocytosis
Review of Systems:
no cp or sob
still with edema
weights up
uop 325cc
Labs
-
Labs:
WBC 33.1 10^3/uL (4.8-10.8) H 12/15/23 06:02
RBC 3.05 10^6/uL (4.20-5.40) L 12/15/23 06:02
Hgb 7.2 g/dL (12.0-16.0) L 12/15/23 06:02
Hct 21.3 % (37.0-47.0) L 12/15/23 06:02
Plt Count 313 10^3/uL (130-400) 12/15/23 06:02
Sodium 132 mmol/L (135-145) L 12/15/23 08:48
Potassium 4.8 mmol/L (3.5-5.1) 12/15/23 08:48
Chloride 95 mmol/L (98-107) L 12/15/23 08:48
Carbon Dioxide 26 mmol/L (22-30) 12/15/23 08:48
BUN 90 mg/dl (7-17) H 12/15/23 08:48
Creatinine 3.6 mg/dL (0.6-1.0) H 12/15/23 08:48
eGFR 14.94 12/15/23 08:48
Glucose 123 mg/dl (70-99) H 12/15/23 08:48
Calcium 8.2 mg/dl (8.4-10.2) L 12/15/23 08:48
Llv-F-Tamkbpinvft Pept [id number] pg/ml 12/08/23 08:30
Albumin 2.6 g/dl (3.5-5.0) L 12/15/23 08:48
Physical Exam
-
Vital Signs:
Vital Signs
Temp Pulse Resp BP Pulse Ox
97.5 F 94 18 126/54 100
12/15/23 11:20 12/15/23 11:20 12/15/23 11:20 12/15/23 11:20 12/15/23 11:20
Cardiovascular:: Regular rate and rhythm
Respiratory:: Bilateral: Coarse
Lung Excursion:: Normal
Abdomen:: Nontender
Bowel Sounds:: Normal
Extremity Edema:: +1: Bilateral:
[place] Catheter: No
--- NOTE | 2023-12-15 14:18 | W.PN.HOSP.TC ---
Today's Communication/Plan
-
see note
Assessment / Plan
Assessment / Plan
Lower right foot MRI 12/06
1. 2.5 cm ABSCESS dorsal to the right 5th MTP joint.
2. SOFT TISSUE EMPHYSEMA tracking around the proximal phalanx of the right 5th toe.
3. SEVERE CELLULITIS throughout the right forefoot.
4. No MRI evidence for acute osteomyelitis.
5. Diffuse signal abnormality throughout the muscles of the right foot (either severe diffuse myositis or acute on chronic muscle denervation secondary to diabetes mellitus).
Lower right foot MRI 12/13
1. PROBABLE ACUTE OSTEOMYELITIS in the right 5th metatarsal head and proximal phalanx of the 4th toe.
2. Large 5.0 cm region of nonenhancing soft tissue necrosis in the lateral right forefoot.
3. No MRI evidence for rim-enhancing enhancing fluid collection to suggest an abscess.
4. Recent amputation of the 5th toe.
5. Severe acute myositis or muscle denervation throughout the right foot.
6. Severe diffuse cellulitis.
US abd
IMPRESSION:
1. Right lower extremity: IVANIA 1.08 within normal limits. TBI mildly reduced 0.60. Eccentric wall calcification noted in vessels. Proximal superficial femoral artery velocity elevation of 357 cm/s with velocity ratio of 2.22 consistent with at least
50-74% stenosis. Monophasic waveforms noted distal to the stenosis.
2. Left lower extremity: IVANIA 1.31 within normal limits. TBI minimally reduced 0.67. Eccentric wall calcification noted in vessels. Multiphasic waveforms throughout lower extremity arteries with distal superficial femoral artery velocity elevation
245 cm/s and velocity ratio of 2.13 consistent with likely 50-74% stenosis. Multiphasic waveforms are maintained distal to the stenosis. Continuous Doppler waverforms at the dorsalis pedis and posterior tibial arteries also remain multiphasic.

1. Right Diabetic foot infection
s/p 5th toe amputation POD #4
Right foot cellulitis
-Patient presented for initial right foot fifth dual infection/cellulitis
-MRI of the foot showing soft tissue emphysema/cellulitis and abscess of MTP joint of fifth toe
-Underwent fifth toe amputation by podiatry, patient is postop day 4
-Intraoperative culture growing MSSA/Streptococcus agalactia. Intraoperative bone margin pathology is negative for any osteomyelitis
-Patient started to having new worsening leukocytosis and a repeat MRI on 12/13 showing large soft tissue necrosis area
-Patient underwent debridement of right foot on 12/13 evening by podiatry, follow-up wound culture report.
-Antibiotic escalated to Zosyn again from Ance[facility]
-Patient at high risk of limb loss with poor vasculature, which is difficult in turn to be intervened upon due to ongoing renal failure/contrast exposure risk.
2. MARYLOU with CKD stage IV
AGAP metabolic acidosis -resolved
Proteinuria
-cr improved to 1.8 with bumex drip, now again up trending
-Urine protein/cr ratio of 0.6
-Discussed with nephrology, renal function needs to be monitored, may need HD if not improved.
-RHC on 12/08 showing PCWP of 47mmHg and was started on bumex drip, renal function did improve but declined again later .
-Cr continues to up-trend as suspected, 3.6 today, monitor for peak and recovery. High risk for need of HD if not improved
3. PAD
-Significant arterial disease with possible suggestive of bilateral proximal superficial femoral artery stenosis of 50 to 74%
-Vascular surgery involved in care and patient currently not a candidate for angiography due to renal failure
-Unfortunately patient did risk of nonhealing right lower extremity wound and further need of amputation without vascular intervention.
4. Acute on chronic diastolic congestive heart failure
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
-Patient weight down trended with Bumex drip, some repeat upward trend on weight
-Currently diuretics being held with worsening renal failure
-Cardiology following and help appreciated
5. Diabetes mellitus
Hypoglycemia
-presumed Type I as diagnosed age 12.
-Diabetes SECTION GANG WORKER consulted, recommendations appreciated
6. Iron def anemia
Acute blood loss anemia from post op
-Ferritin of 74.6 with saturation of 12% and acute phase suggestive of iron deficiency anemia
-Got 7 doses of IV Ferrlecit.
-patient had significant bleed/dressing soaked at right foot surgical site, redressed and controlled at this point
-Hbg dropped from 8.5 > 7.2 today, giving 1 u prbc with understanding risk of worsening volume status.
7. h/o of CVA
Legally blind in right eye
- Multiple prior CVAs. LINQ recorder recommended; however, patient declined.
- Continue daily ASA. Will hold Plavix acutely in the event that surgical intervention is needed.
Guillain [place] syndrome, with chronic LLE weakness
Hyponatremia
Moderate /AR
Mild to mod MS
DVT Prophylaxis: Heparin Subq
Code Status: Full
12/14 discussed patient prognosis and complexity of case with son over the phone. All questions answered. I have specified to patient and son that if renal function did not improve will require dialysis
Anticipated Discharge: > 48 hours
Subjective/Interval History
-
Date of Service: December 15, 2023
Patient had bleeding from right foot surgical surgical site overnight
dressing has been changed in the morning
Patient also having pain at the right foot surgical site, requesting something stronger than Tylenol
no other acute issues reported overnight
Objective Data
-
Labs:
Laboratory Results
12/15/23 12/15/23
06:02 08:48
WBC 33.1 H
Hgb 7.2 L
Hct 21.3 L
Plt Count 313
Sodium Cancelled 132 L
Potassium Cancelled 4.8
Chloride Cancelled 95 L
Carbon Dioxide Cancelled 26
BUN Cancelled 90 H
Creatinine Cancelled 3.6 H
Glucose Cancelled 123 H
Calcium Cancelled 8.2 L
Total Bilirubin Cancelled 0.6
AST Cancelled 58 H
ALT Cancelled < 10
Alkaline Phosphatase Cancelled 373 H
Vital Signs:
Vital Signs
Temp Pulse Resp BP Pulse Ox
97.5 F 94 18 126/54 100
12/15/23 11:20 12/15/23 11:20 12/15/23 11:20 12/15/23 11:20 12/15/23 11:20
I&O
12/14/23 12/15/23 12/16/23
06:59 06:59 06:59
Intake Total 862 / 862 440 / 440
Output Total 550 / 550 325 / 325
Balance 312 / 312 115 / 115
Review of Systems
-
Respiratory: Reports No Symptoms
Cardiac: Reports No Symptoms
Abdomen/GI: Reports No Symptoms
Physical Exam
-
General: Comfortable; Negative Obese
HEENT: Negative Oxygen
Respiratory: Clear to Auscultation
Cardiac: Regular Rhythm and S1/S2; Negative Murmur
GI: Soft, Nontender and Nondistended
Musculoskeletal: Other (Right lower extremity dressing in place )
Neuro: Awake, Alert, Oriented and No Motor Deficits
Psych: Calm
--- NOTE | 2023-12-15 15:41 | PTCARENOTE ---
pt was bladder scanned @ 1530 and had 263ml in her bladder. Please re-check bladder levels @ 2100
--- NOTE | 2023-12-15 15:53 | CM ---
Patient s/p surgery last pm, right foot debridement and right 4 th toe amputation.
Continue IV anbx, dressing changes.
Continues with lab monitoring.
CM will continue to follow for d/c needs.
Currently plan is for home with [facility], may change.
--- NOTE | 2023-12-15 15:55 | W.PN.ID1 ---
Date of Service
Date of Service: December 15, 2023
Today's Communication
Continue antibiotics
Assessment / Plan
Diabetic Foot Infection
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
PAD
DM1 - uncontrolled
CKD4
Congenital Heart disease
/AR
Pulm HTN
Guillain [place] syndrome, with chronic LLE weakness
Recommendations:
Blood cultures without growth.
MRI previously revealed presence of suspected osteomyelitis of the fifth met head and proximal phalanx of the fourth toe. Leukocytosis worsening, and may be related to devitalized tissue in the area.
Patient is S/P revision surgery 12/14/23.
Continue Zosyn. Await further cultures.
Patient in tenuous situation, as it is not clear how much blood flow and antibiotics are actually getting to the area of concern, given underlying vascular issues. Additionally, patient had extreme risk of kidney injury with potential contrast load
for angio.
Cr. continues to rise. D/W Nephrology; may need HD soon.
-Follow wbc
Patient at high risk for limb loss.
����������������������������������������������������������
Chief Complaint
-: Leukocytosis and Other (Right foot diabetic foot infection)
Subjective / Review of Systems
Patient seen and examined. S/p further surgery yesterday.
Vital Signs / Physical Exam
Vital Signs
Vital Signs
Temp Pulse Resp BP Pulse Ox
98.1 F 99 18 132/55 100
12/15/23 15:00 12/15/23 15:00 12/15/23 15:00 12/15/23 15:00 12/15/23 15:00
Physical Exam
Constitutional: No Acute Distress, Comfortable and Non-toxic
Cardiovascular: S1/S2; Negative S3/S4
Pulmonary: Non Labored
Gastrointestinal: Soft and Non Distended
Wound: Other (Right foot dressed. Some serous and bloody strikethrough noted on dressing on the lateral aspect of the foot.)
Neurological: Awake and Alert
Psychological: Calm
Objective Data
Lab Data
Lab Results
12/15/23 06:02
12/15/23 08:48
ESR 105 mm/hour (0-20) H 12/06/23 00:52
Estimated Creat Clear 19 ml/min 12/15/23 08:48
Lactic Acid 1.2 mmol/L (0.7-2.0) 12/06/23 00:52
Total Bilirubin 0.6 mg/dl (0.2-1.3) 12/15/23 08:48
AST 58 U/L (14-36) H 12/15/23 08:48
ALT < 10 U/L (0-35) 12/15/23 08:48
Alkaline Phosphatase 373 U/L (38-126) H 12/15/23 08:48
C-Reactive Protein 223.70 mg/L (0.0-10.00) H 12/06/23 00:52
Most recent labs reviewed.
Micro Results:
12/14/23 20:41 Wound Culture - Pending
Foot - Right Gram Stain - Preliminary
12/14/23 20:41 Anaerobic Culture - Pending
Foot - Right
12/07/23 16:14 Wound Culture - Final
Foot - Right S aureus-Methicillin Sensitive
Streptococcus agalactiae
Gram Stain - Final
12/07/23 16:14 Anaerobic Culture - Final
Foot - Right
12/06/23 03:26 Blood Culture - Final
Blood/Venous No Growth - Final Report
12/06/23 00:51 Blood Culture - Final
Blood/Venous No Growth - Final Report
12/06/23 22:32 MRSA Screen - Final
Nose No Methicillin Resistant Staphylococcus aureus isolated.
Imaging:
12/14/2023 MRI RLE: 1. PROBABLE ACUTE OSTEOMYELITIS in the right 5th metatarsal head and proximal phalanx of the 4th toe. 2. Large 5.0 cm region of nonenhancing soft tissue necrosis in the lateral right forefoot. 3. No MRI evidence for
rim-enhancing enhancing fluid collection to suggest an abscess. 4. Recent amputation of the 5th toe. 5. Severe acute myositis or muscle denervation throughout the right foot. 6. Severe diffuse cellulitis.
[2023-12-15 16:41] LABS: Glucose - Point of Care 148 mg/dl (70-99)
[2023-12-15] MEDS: NOVOLOG FLEXPEN-LOW RESISTANCE SC (16:52)
[2023-12-15] MEDS: LIPITOR 80 MG PO (17:25)
[2023-12-15] MEDS: BUMEX 50 IV (17:33)
[2023-12-15 21:21] LABS: Glucose - Point of Care 148 mg/dl (70-99)
[2023-12-15 22:00] LABS: Hematocrit 23.8 % (37.0-47.0); Hemoglobin 8.1 g/dL (12.0-16.0); Mean Corpuscular Hgb 24.9 pg (27.0-31.0); Mean Corpuscular Volume 73.2 fL (81.0-99.0); Mean Platelet Volume 8.9 fL (7.4-10.4); Platelet Count 271 10^3/uL (130-400); Red Blood Cell Count 3.25 10^6/uL (4.20-5.40); Red Cell Dist. Width 22.1 % (11.5-14.5)
[2023-12-15] MEDS: LANTUS 0.0200000000000000004 UNITS SC (22:10)
--- NOTE | 2023-12-15 22:50 | PTCARENOTE ---
Grinding Supervisor Dr. Casey notified by this RN that pt's right foot dressing is clean dry and intact without drainage noted. No new orders and will continue to monitor for drainage/bleeding from dressing site.
[2023-12-16] VITALS (7 sets, daily range): BP systolic 109–141; BP diastolic 47–63; PULSE 85; O2SAT 100; BMI 29.7
[2023-12-16] MEDS: BUMEX 50 IV (01:37)
[2023-12-16] MEDS: TYLENOL 1000 MG PO ×3 (04:23→19:59)
[2023-12-16] MEDS: ZOSYN 50 IV ×4 (04:25→22:26)
--- NOTE | 2023-12-16 04:45 | PTCARENOTE ---
Pt reports to this RN that she is experiencing 'aches and pains all over my body. This happened the last time I was on a Bumex drip'. Pt is requesting to have IV Bumex gtt stopped. House SKIDDER OPERATOR Judi Aquino notified that pt is refusing to have IV
Bumex gtt and she is feeling aches all over her body. Pt has CBC, CMP and INR labs ordered for the AM. Pt verbalizes understanding of why the IV Bumex gtt was ordered and that she is close to renal failure with fluid volume overload. Will
continue to monitor for increased pain/aching.
[2023-12-16 07:28] LABS: INR 1.54; PT 18.3 Sec (11.4-14.6)
[2023-12-16 07:32] LABS: % Basophils 0.4 % (0-2); % Eosinophils 0.3 % (0-6); % Lymphocytes 5.9 % (20.5-51.1); % Monocytes 3.8 % (1.7-9.3); % Neutrophils 87.6 % (42.2-75.2); Absolute Basophils 0.2 10^3/uL (0-0.2); Absolute Eosinophils 0.1 10^3/uL (0-0.7); Absolute Immature Granulocytes 0.7 10^3/uL (0-0.05); Absolute Monocytes 1.3 10^3/uL (0.1-0.6); Absolute Neutrophils 29.3 10^3/uL (1.4-6.5); Hematocrit 21.2 % (37.0-47.0); Mean Corpuscular Hgb 24.9 pg (27.0-31.0); Mean Corpuscular Volume 75.4 fL (81.0-99.0); Mean Platelet Volume 9.8 fL (7.4-10.4); Nucleated Red Blood Cells % 0.1 %; Platelet Count 277 10^3/uL (130-400); Red Blood Cell Count 2.81 10^6/uL (4.20-5.40); Red Cell Dist. Width 21.2 % (11.5-14.5); White Blood Cell Count 33.5 10^3/uL (4.8-10.8)
[2023-12-16 07:32] LABS: Glucose - Point of Care 144 mg/dl (70-99)
--- NOTE | 2023-12-16 07:35 | PN.DE.MGMTRT ---
Insulin Management
- -
12/16/2023: Diabetes Management Follow up:
Patient admitted with Right fifth toe discoloration, open wound.
PMH: CAD(CABG 1981), CKD, CVA x2, HTN, Retinopathy, CHF and T2DM. A1C 9.2%, Cr 3.0 eGFR 18.59, was taking Lantus 18-20 units @ HS and Lispro 4 units AC. Patient states she was diagnosed with diabetes at age 12 and started insulin at age 13. She
states her A1C is greatly improved. She has a glucose monitor and tests daily.
Patient is awake, alert and oriented, resting in bed, able to discuss diabetes management.
POD # 9 s/p Right 5th toe amputation, POD 2 s/p tissue debridement R foot and amputation 4th toe.
Cr 3.6 yesterday, eGFR 13.94. Today 4.8, eGFR 10.58.
Glucose range 12/14 123 to 148. Received 3 units novolog AC with Lantus 2 units @ HS. Required no corrective insulin.
Will cont to follow. Closely monitor and adjust insulin dose if necessary
Discussed with patients nurse.
Diabetes History
- -
Type of Diabetes: 2 requiring insulin
Pre-Admission Diabetes Regimen
12/15/23
08:48
Creatinine 3.6 H
Lab Results
Hemoglobin A1c 9.2 % (4.0-5.6) H 12/06/23 08:12
Insulin Pump Settings
IP Diabetes Regimen
12/15/23 12/15/23 12/15/23
07:45 08:15 08:48
Glucose 123 H
POC Glucose 159 H 159 H
12/15/23 12/15/23 12/15/23
12:42 16:40 21:19
Glucose
POC Glucose 146 H 148 H 148 H
12/16/23
07:21
Glucose
POC Glucose 144 H
Meal type: Lunch
Amount consumed: 100%
Patient Education
[2023-12-16 08:03] LABS: ALT (SGPT) < 10 U/L (0-35); AST (SGOT) 80 U/L (14-36); Albumin 2.6 g/dl (3.5-5.0); Alkaline Phosphatase 537 U/L (38-126); Blood Urea Nitrogen 94 mg/dl (7-17); Calcium 8.1 mg/dl (8.4-10.2); Carbon Dioxide 22 mmol/L (22-30); Chloride 90 mmol/L (98-107); Estimated Creatinine Clearance 14 ml/min; Glucose 99 mg/dl (70-99); Potassium 4.9 mmol/L (3.5-5.1); Sodium 125 mmol/L (135-145); Total Bilirubin 0.9 mg/dl (0.2-1.3); eGFR 10.58
[2023-12-16] MEDS: ASPIR LOW (ENTERIC COATED) 81 MG PO (09:05)
[2023-12-16] MEDS: NOVOLOG FLEXPEN-LOW RESISTANCE SC ×3 (09:05→17:37)
[2023-12-16] MEDS: HEPARIN 5000 UNITS SC ×2 (09:07→19:59)
[2023-12-16] MEDS: COLACE PO ×2 (09:08→19:59)
[2023-12-16] MEDS: NOVOLOG FLEXPEN 3 UNITS SC ×3 (09:08→17:39)
--- NOTE | 2023-12-16 09:55 | W.PN.CD ---
Today's Communication / Plan
-
-Patient with worsening MARYLOU (creatinine went from 3.6 to 4.8), hyponatremia (sodium went from 132 to 125), and anemia; Bumex drip was restarted yesterday.
-Will likely need dialysis; Nephrology following.
Impression / Plan
-
Severe acute on chronic HFpEF, (PCWP 47 at 77 kg on 12/09/2023)
-Unclear dry weight
-Patient with worsening MARYLOU (creatinine went from 3.6 to 4.8), hyponatremia (sodium went from 132 to 125), and anemia; Bumex drip was restarted yesterday.
-Will likely need dialysis; Nephrology following.
MARYLOU--does not appear to be cardiorenal (normal cardiac output/cardiac index).
-Likely approaching HD requirement; creatinine 4.8 this morning.
Mixed valvular heart disease
-Moderate , moderate/severe AR, mild/moderate MS
-Will likely need valve surgery in the future, if an appropriate candidate; reevaluate as outpatient.
-Records have been requested
Congenital heart surgery as a child, no records available, multiple requests
Right 5th toe osteomyelitis
-Amputation performed on 12/07/2023
-Debridement 12/14/2023
-No cardiac complications detected from surgery
Sepsis in the setting of right 5th toe infection in a diabetic patient
PAD, vascular surgery involved, high risk of progressive renal failure noted
Anemia, appears acute on chronic
-Old iron studies concerning for iron deficiency => transfused and getting IV iron
-Hgb down to 7.2 this morning, transfuse per primary service
Type I vs 2 DM, uncontrolled, Hgba1c 9.6%, per primary => multiple complications
-Pt hopes not to take SGLT2-I in future.
-She thinks she has type II DM, we generally do not use SGLT2-I in type I DM
Prior CVA, refused LINQ
Guillain [place] syndrome, with chronic LLE weakness
Subjective:
No cardiac complaints this a.m. Has diffuse pain 'all over'.
DATA:
RHC 12/09/2023:
Weight (kg):77.1
PA (s/d/x mmHg): 99/31/54
PCWP (a/v/x mmHg): 55/64/47
RV (s/x mmHg): 100/17
RA (a/v/x mmHg):
Echo 12/08/2023:
Left ventricle is small in size.
Hyperdynamic left ventricular systolic function.
Stage II diastolic dysfunction suggestive of abnormal relaxation and increased
filling pressures.
Dense mitral annular calcification.
Mild to moderate mitral stenosis (calcific in nature with the dense MAC. The
anterior MV leaflet moves normally).
Mild mitral regurgitation.
Thickened aortic valve with restricted leaflet motion.
Moderate aortic stenosis.
Moderate aortic regurgitation.
Mild tricuspid regurgitation.
Estimated PASP 60-65 mmHg.
No significant change since the prior study of 04/07/2023.
The nature of her congenital heart disease and congenital heart surgery at age
5 is unknown. She reports correction of a blockage near her aorta or aortic
valve.
Physical Exam
Vital Signs/Labs
Vital Signs
Temp Pulse Resp BP Pulse Ox
98.1 F 92 18 122/53 95
12/16/23 07:00 12/16/23 07:00 12/16/23 07:00 12/16/23 07:00 12/16/23 07:00
12/15/23 12/16/23 12/17/23
06:59 06:59 06:59
Actual Weight 75.92 kg 75.977 kg
12/16/23 06:12
12/16/23 06:12
PT 18.3 Sec (11.4-14.6) H 12/16/23 06:12
INR 1.54 12/16/23 06:12
Magnesium 2.0 mg/dl (1.6-2.3) 12/14/23 08:46
12/08/23
08:30
[id number]-Jkfjnmdrdlx Pept [id number]
Physical Exam
Constitutional: No acute distress and Comfortable
EENT: Anicteric
Cardiovascular: Rhythm & rate is regular, Pedal edema present (trace to 1+), Systolic murmur present (3/6) and S1S2 is normal
Respiratory: Respiratory effort normal and Lungs clear to auscul.
GI: Soft
Neuro/Psych: AO x 3
Other: Skin (Warm, legs wrapped in gauze)
Data Reviewed
-
Date of Service: December 16, 2023
EKG: Tracing Personally Visualized and interpreted (Telemetry: Sinus rhythm)
Medical Tests (PFT, Pathology etc): Discussed with Physician (Primary hospitalist) and Discussed with Patient
Labs: Labs Reviewed by me
--- NOTE | 2023-12-16 12:19 | CM ---
Patient seen bedside.
Bumex gtt, IV anbx.
Continue dressing changes.
Monitor labs, may need HD.
Plan: home with [facility] vs possible need for skilled rehab.
--- NOTE | 2023-12-16 12:32 | W.PN.ID1 ---
Date of Service
Date of Service: December 16, 2023
Today's Communication
Continue abx.
Assessment / Plan
Diabetic Foot Infection
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
- revision with 4th toe amp (12/14/23)
PAD
DM1 - uncontrolled
CKD4
Congenital Heart disease
/AR
Pulm HTN
Hx Guillain [place] syndrome, with chronic LLE weakness
Recommendations:
Blood cultures without growth.
MRI previously revealed presence of suspected osteomyelitis of the fifth met head and proximal phalanx of the fourth toe. Leukocytosis worsening, and may be related to devitalized tissue in the area.
Patient is S/P revision surgery 12/14/23.
Continue Zosyn. Await further cultures.
-Follow wbc
Patient at high risk for limb loss.
����������������������������������������������������������
Chief Complaint
-: Leukocytosis and Other (Right foot diabetic foot infection)
Subjective / Review of Systems
Review of Systems: No Fever and No Chills
Vital Signs / Physical Exam
Vital Signs
Vital Signs
Temp Pulse Resp BP Pulse Ox
98.1 F 92 18 122/53 95
12/16/23 07:00 12/16/23 07:00 12/16/23 07:00 12/16/23 07:00 12/16/23 07:00
Physical Exam
Constitutional: No Acute Distress, Comfortable, Chronically Ill and Non-toxic
Cardiovascular: S1/S2; Negative S3/S4
Pulmonary: Non Labored
Gastrointestinal: Soft and Non Distended
Wound: Other (Right foot dressed.)
Neurological: Awake and Alert
Psychological: Calm
Objective Data
Lab Data
Lab Results
12/16/23 06:12
12/16/23 06:12
ESR 105 mm/hour (0-20) H 12/06/23 00:52
PT 18.3 Sec (11.4-14.6) H 12/16/23 06:12
INR 1.54 12/16/23 06:12
Estimated Creat Clear 14 ml/min 12/16/23 06:12
Lactic Acid 1.2 mmol/L (0.7-2.0) 12/06/23 00:52
Total Bilirubin 0.9 mg/dl (0.2-1.3) 12/16/23 06:12
AST 80 U/L (14-36) H 12/16/23 06:12
ALT < 10 U/L (0-35) 12/16/23 06:12
Alkaline Phosphatase 537 U/L (38-126) H 12/16/23 06:12
C-Reactive Protein 223.70 mg/L (0.0-10.00) H 12/06/23 00:52
Most recent labs reviewed.
Micro Results:
12/14/23 20:41 Anaerobic Culture - Preliminary
Foot - Right Culture pending. Anaerobic cultures are examined after 3
days incubation. Additional information to follow.
12/14/23 20:41 Wound Culture - Preliminary
Foot - Right No growth
Gram Stain - Preliminary
12/07/23 16:14 Wound Culture - Final
Foot - Right S aureus-Methicillin Sensitive
Streptococcus agalactiae
Gram Stain - Final
12/07/23 16:14 Anaerobic Culture - Final
Foot - Right
12/06/23 03:26 Blood Culture - Final
Blood/Venous No Growth - Final Report
12/06/23 00:51 Blood Culture - Final
Blood/Venous No Growth - Final Report
12/06/23 22:32 MRSA Screen - Final
Nose No Methicillin Resistant Staphylococcus aureus isolated.
Imaging:
12/14/2023 MRI RLE: 1. PROBABLE ACUTE OSTEOMYELITIS in the right 5th metatarsal head and proximal phalanx of the 4th toe. 2. Large 5.0 cm region of nonenhancing soft tissue necrosis in the lateral right forefoot. 3. No MRI evidence for
rim-enhancing enhancing fluid collection to suggest an abscess. 4. Recent amputation of the 5th toe. 5. Severe acute myositis or muscle denervation throughout the right foot. 6. Severe diffuse cellulitis.
[2023-12-16 12:48] LABS: Glucose - Point of Care 125 mg/dl (70-99)
--- NOTE | 2023-12-16 12:49 | W.PN.NEPH.PH ---
Today's Communication / Plan
-
potential HD tomorrow if pt agrees
Assessment/Plan
-
IMP:
Diabetic Foot Infection Right Foot, right 5th toe amputation
Sepsis secondary to the above
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
MARYLOU with CKD stage 4
hyponatremia
Acute on chr anemia
A gap met acidosis
ASCVD
Multiple prior CVAs. LINQ recorder recommended; however, patient declined.
Chronic HFpEF
Congenital heart surgery as a child, no records available
Moderate , AR, mild to mod MS
Guillain [place] syndrome, with chronic LLE weakness
Plan:
MARYLOU-cardiorenal, cr is increasing to 4.8, uop ~300cc, BUN~94
no response to bumex gtt, suspect she likely need HD now
d/w pt in detail and it is hard to get any answer from her
she wanted another day, most likely start HD tomorrow
cotn bumex for time being
hypoantremia-dilutional from above, maintain FR 40 ounces/day
Bp stable
hgb worsening despite on IV fe infusion, plan transfusion with HD
would delay angio: re worsening MARYLOU, s/p debridement of foot today by podiatry
Lower extremity MRI reviewed: Report notes probable acute osteomyelitis in the right fifth metatarsal head and proximal phalanx of the fourth toe 5 cm region of soft tissue necrosis and lateral right forefoot
would hold initiating SGLT2 inhibitor this admit, also she seem type 1DM
abx per ID, on ancef
prognosis is guarded care home
Patient at high clinical risk with worsening renal failure requiring IV diuretic infusion in setting of cardiorenal syndrome
high risk encounter
d/w primary
-
-
Date of Service: December 16, 2023
CC / HPI / ROS
-
Chief Complaint:
MARYLOU with CKD
History of Present Illness:
MARYLOU/Cr worsening to 4.8, UOP 300cc
Na dropping to 125
s/p RHC 6/5. PCWP 47
Hgb low 7.- worsening leucocytosis
Review of Systems:
no cp or sob
still with edema
weights no change
Labs
-
Labs:
WBC 33.5 10^3/uL (4.8-10.8) H 12/16/23 06:12
RBC 2.81 10^6/uL (4.20-5.40) L 12/16/23 06:12
Hgb 7.0 g/dL (12.0-16.0) L 12/16/23 06:12
Hct 21.2 % (37.0-47.0) L 12/16/23 06:12
Plt Count 277 10^3/uL (130-400) 12/16/23 06:12
Sodium 125 mmol/L (135-145) L 12/16/23 06:12
Potassium 4.9 mmol/L (3.5-5.1) 12/16/23 06:12
Chloride 90 mmol/L (98-107) L 12/16/23 06:12
Carbon Dioxide 22 mmol/L (22-30) 12/16/23 06:12
BUN 94 mg/dl (7-17) H 12/16/23 06:12
Creatinine 4.8 mg/dL (0.6-1.0) H* 12/16/23 06:12
eGFR 10.58 12/16/23 06:12
Glucose 99 mg/dl (70-99) 12/16/23 06:12
Calcium 8.1 mg/dl (8.4-10.2) L 12/16/23 06:12
Jre-V-Kkurikatibv Pept 50048 pg/ml 12/08/23 08:30
Albumin 2.6 g/dl (3.5-5.0) L 12/16/23 06:12
Physical Exam
-
Vital Signs:
Vital Signs
Temp Pulse Resp BP Pulse Ox
98.1 F 92 18 122/53 95
12/16/23 07:00 12/16/23 07:00 12/16/23 07:00 12/16/23 07:00 12/16/23 07:00
Cardiovascular:: Regular rate and rhythm
Respiratory:: Bilateral: CTA
Lung Excursion:: Normal
Abdomen:: Nontender and Soft
Extremity Edema:: +1: Bilateral:
[place] Catheter: No
Other Findings::
right foot wound noted wiht podiatry
--- NOTE | 2023-12-16 16:17 | W.PN.POD ---
Today's Communication
Today's Communication
Podiatry to cont close monitor her Rt foot
Assessment / Plan
-
Rt foot S/p 5th toe amputation 12/06
S/P Rt foot # 2 debridement and Rt 4th toe amputation POD #2
Rt foot cellulitis.
Diabetic small vessel disease.
PAD
Diabetic neuropathy.
Plan ; Changed dressings to Rt foot , applied compressive dressings to Rt foot .
Can not correlate with WBC count to Rt foot clinically, Rt foot does not have any new necrotic tissue to correlate her WBC
Will keep an eye on dressings , if there is still bleeding, will apply topical thrombin this afternoon
WbC count trending up from 20>24 >32,
No wt bearing today on Rt foot, commode to bedside
Pt to use surgical shoe to Rt heel wt bear only.
Patients renal function has declined again so angiogram is pushed back due to risk of kidney failure.
Subjective
Chief Complaint
Rt 5th toe gangrene and Rt foot infection
Subjective
Patient seen at bedside, in no acute distress, awake, alert, oriented, no SOB or chest pain, she denies any new pedal complaints . Denies any Rt foot pain, no calf pain no fever, chills.
Has strike through bleeding noted in Rt foot dressings
Objective
Temp Pulse Resp BP Pulse Ox
97.4 F 85 20 135/56 98
12/16/23 15:42 12/16/23 15:42 12/16/23 15:42 12/16/23 15:42 12/16/23 15:42
12/16/23 06:12
12/16/23 06:12
Vital Signs and Lab results were reviewed.
Rt foot palpable Dp and dopplerable PT pedal pulses
Rt foot decreased edema .
Rt foot surgical debrided site and 4th toe amputation noted to have some minimal bloody oozing, minimal purulence with manual expression, no new necrosis, no foul odor noted. has healthy deep tissues at the amputation site.
forefoot area around the bases of the digits with paler appearance, no crepitus felt, no signs of any abscess felt, no red streaking up the leg
[2023-12-16 16:21] LABS: Glucose - Point of Care 130 mg/dl (70-99)
--- NOTE | 2023-12-16 16:47 | W.PN.HOSP.TC ---
Today's Communication/Plan
-
see note
hold blood transfusion today
f/u hbg level
abx per ID
Assessment / Plan
Assessment / Plan
Lower right foot MRI 12/06
1. 2.5 cm ABSCESS dorsal to the right 5th MTP joint.
2. SOFT TISSUE EMPHYSEMA tracking around the proximal phalanx of the right 5th toe.
3. SEVERE CELLULITIS throughout the right forefoot.
4. No MRI evidence for acute osteomyelitis.
5. Diffuse signal abnormality throughout the muscles of the right foot (either severe diffuse myositis or acute on chronic muscle denervation secondary to diabetes mellitus).
Lower right foot MRI 12/13
1. PROBABLE ACUTE OSTEOMYELITIS in the right 5th metatarsal head and proximal phalanx of the 4th toe.
2. Large 5.0 cm region of nonenhancing soft tissue necrosis in the lateral right forefoot.
3. No MRI evidence for rim-enhancing enhancing fluid collection to suggest an abscess.
4. Recent amputation of the 5th toe.
5. Severe acute myositis or muscle denervation throughout the right foot.
6. Severe diffuse cellulitis.
US abd
IMPRESSION:
1. Right lower extremity: IVANIA 1.08 within normal limits. TBI mildly reduced 0.60. Eccentric wall calcification noted in vessels. Proximal superficial femoral artery velocity elevation of 357 cm/s with velocity ratio of 2.22 consistent with at least
50-74% stenosis. Monophasic waveforms noted distal to the stenosis.
2. Left lower extremity: IVANIA 1.31 within normal limits. TBI minimally reduced 0.67. Eccentric wall calcification noted in vessels. Multiphasic waveforms throughout lower extremity arteries with distal superficial femoral artery velocity elevation
245 cm/s and velocity ratio of 2.13 consistent with likely 50-74% stenosis. Multiphasic waveforms are maintained distal to the stenosis. Continuous Doppler waverforms at the dorsalis pedis and posterior tibial arteries also remain multiphasic.

1. Right Diabetic foot infection
s/p 5th toe amputation POD #4
Right foot cellulitis
-Patient presented for initial right foot fifth dual infection/cellulitis
-MRI of the foot showing soft tissue emphysema/cellulitis and abscess of MTP joint of fifth toe
-Underwent fifth toe amputation by podiatry, patient is postop day 4
-Intraoperative culture growing MSSA/Streptococcus agalactia. Intraoperative bone margin pathology is negative for any osteomyelitis
-Patient started to having new worsening leukocytosis and a repeat MRI on 12/13 showing large soft tissue necrosis area
-Patient underwent debridement of right foot on 12/13 evening by podiatry, repeat wound culture negative for any growth
-Antibiotic escalated to Zosyn again from [facility]
-Patient at high risk of limb loss with poor vasculature, which is difficult in turn to be intervened upon due to ongoing renal failure/contrast exposure risk.
2. MARYLOU with CKD stage IV
AGAP metabolic acidosis -resolved
Proteinuria
-cr improved to 1.8 with bumex drip, now again up trending
-Urine protein/cr ratio of 0.6
-Discussed with nephrology, renal function needs to be monitored, may need HD if not improved.
-RHC on 12/08 showing PCWP of 47mmHg and was started on bumex drip, renal function did improve but declined again later .
-Cr continues to up-trend and 4.8 today, nephro discussed HD and patient wants one more day, adamant about NOT wanting HD cath placed as well for preparation of HD
3. PAD
-Significant arterial disease with possible suggestive of bilateral proximal superficial femoral artery stenosis of 50 to 74%
-Vascular surgery involved in care and patient currently not a candidate for angiography due to renal failure
-Unfortunately patient did risk of nonhealing right lower extremity wound and further need of amputation without vascular intervention.
4. Acute on chronic diastolic congestive heart failure
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
-Patient weight down trended with Bumex drip, some repeat upward trend on weight
-Currently diuretics being held with worsening renal failure
-Cardiology following and help appreciated
5. Diabetes mellitus
Hypoglycemia
-presumed Type I as diagnosed age 12.
-Diabetes [employer] consulted, recommendations appreciated
6. Iron def anemia
Acute blood loss anemia from post op
-Ferritin of 74.6 with saturation of 12% and acute phase suggestive of iron deficiency anemia
-Got 7 doses of IV Ferrlecit.
-Patient has significant blood loss from surgical site debridement required multiple dressing and localized thrombn rx
-hbg 7 today, discussed with nephro and requested to hold as will try to give with HD.
7. h/o of CVA
Legally blind in right eye
- Multiple prior CVAs. LINQ recorder recommended; however, patient declined.
- Continue daily ASA. Will hold Plavix acutely in the event that surgical intervention is needed.
Guillain [place] syndrome, with chronic LLE weakness
Hyponatremia
Moderate /AR
Mild to mod MS
DVT Prophylaxis: Heparin Subq
Code Status: Full
12/14 discussed patient prognosis and complexity of case with son over the phone. All questions answered. I have specified to patient and son that if renal function did not improve will require dialysis
Patient high risk for complication of renal failure/limb loss/sepsis. Prolonged discussion with patient again for need of dialysis and rational done although patient remains against being initiated on HD today.
Discussed with nephro.
Anticipated Discharge: Within 24 hours
Subjective/Interval History
-
Date of Service: December 16, 2023
Complaining of abdominal pain/cramping
Patient concerned that she is dehydrated
Objective Data
-
Labs:
Laboratory Results
12/16/23
06:12
WBC 33.5 H
Hgb 7.0 L
Hct 21.2 L
Plt Count 277
PT 18.3 H
INR 1.54
Sodium 125 L
Potassium 4.9
Chloride 90 L
Carbon Dioxide 22
BUN 94 H
Creatinine 4.8 H*
Glucose 99
Calcium 8.1 L
Total Bilirubin 0.9
AST 80 H
ALT < 10
Alkaline Phosphatase 537 H
Vital Signs:
Vital Signs
Temp Pulse Resp BP Pulse Ox
97.4 F 85 20 135/56 98
12/16/23 15:42 12/16/23 15:42 12/16/23 15:42 12/16/23 15:42 12/16/23 15:42
I&O
12/15/23 12/16/23 12/17/23
06:59 06:59 06:59
Intake Total 440 / 440 1080 / 1080
Output Total 325 / 325 300 / 300
Balance 115 / 115 1080 / 1080 -300 / -300
Review of Systems
-
Respiratory: Reports No Symptoms
Cardiac: Reports No Symptoms
Abdomen/GI: Reports Abdominal Pain; Denies Nausea or Vomiting
Physical Exam
-
General: Comfortable; Negative Obese
HEENT: Negative Oxygen
Respiratory: Clear to Auscultation
Cardiac: Regular Rhythm and S1/S2; Negative Murmur
GI: Soft, Nontender and Nondistended
Musculoskeletal: Other (Right lower extremity dressing in place )
Neuro: Awake, Alert, Oriented and No Motor Deficits
Psych: Calm
[2023-12-16] MEDS: LIPITOR 80 MG PO (17:37)
[2023-12-16 21:27] LABS: Glucose - Point of Care 114 mg/dl (70-99)
[2023-12-16] MEDS: LANTUS 0.0200000000000000004 UNITS SC (22:26)
[2023-12-17] MEDS: TYLENOL 1000 MG PO ×3 (03:31→21:00)
[2023-12-17] MEDS: ZOSYN 50 IV ×3 (03:31→18:06)
[2023-12-17 03:36] VITALS: BP 146/65
[2023-12-17 06:00] VITALS: BMI 29.6
--- NOTE | 2023-12-17 07:39 | PN.DE.MGMTRT ---
Insulin Management
- -
12/17/2023: Diabetes Management Follow up:
Patient admitted with Right fifth toe discoloration, open wound.
PMH: CAD(CABG 1981), CKD, CVA x2, HTN, Retinopathy, CHF and T2DM. A1C 9.2%, Cr 3.0 eGFR 18.59, was taking Lantus 18-20 units @ HS and Lispro 4 units AC. Patient states she was diagnosed with diabetes at age 12 and started insulin at age 13. She
states her A1C is greatly improved. She has a glucose monitor and tests daily.
Patient is awake, alert and oriented, resting in bed, able to discuss diabetes management.
POD # 10 s/p Right 5th toe amputation, POD 3 s/p tissue debridement R foot and amputation 4th toe.
Cr 4.8 yesterday, eGFR 10.58. Today , eGFR
Glucose range 12/15 114 to 144. Received 3 units novolog AC with Lantus 2 units @ HS. Required no corrective insulin. Will continue current regimen.
Will cont to follow. Closely monitor and adjust insulin dose if necessary
Discussed with patients nurse.
Diabetes History
- -
Type of Diabetes: 2 requiring insulin
Pre-Admission Diabetes Regimen
12/16/23
06:12
Creatinine 4.8 H*
Lab Results
Hemoglobin A1c 9.2 % (4.0-5.6) H 12/06/23 08:12
Insulin Pump Settings
IP Diabetes Regimen
12/16/23 12/16/23 12/16/23
06:12 12:47 16:19
Glucose 99
POC Glucose 125 H 130 H
12/16/23
21:25
Glucose
POC Glucose 114 H
Meal type: Breakfast
Amount consumed: 15%
Patient Education
[2023-12-17 07:44] LABS: % Basophils 0.4 % (0-2); % Eosinophils 0.5 % (0-6); % Immature Granulocytes 1.6 % (0-0.5); % Lymphocytes 5.1 % (20.5-51.1); % Monocytes 3.7 % (1.7-9.3); % Neutrophils 88.7 % (42.2-75.2); Absolute Basophils 0.1 10^3/uL (0-0.2); Absolute Eosinophils 0.2 10^3/uL (0-0.7); Absolute Immature Granulocytes 0.6 10^3/uL (0-0.05); Absolute Lymphocytes 1.7 10^3/uL (1.2-3.4); Absolute Monocytes 1.3 10^3/uL (0.1-0.6); Hemoglobin 7.1 g/dL (12.0-16.0); Mean Corp Hgb Conc. 35.3 g/dL (33.0-37.0); Mean Corpuscular Hgb 25.6 pg (27.0-31.0); Mean Corpuscular Volume 72.6 fL (81.0-99.0); Mean Platelet Volume 9.4 fL (7.4-10.4); Nucleated Red Blood Cells % 0.1 %; Platelet Count 312 10^3/uL (130-400); Red Blood Cell Count 2.77 10^6/uL (4.20-5.40); White Blood Cell Count 33.8 10^3/uL (4.8-10.8)
[2023-12-17 07:53] LABS: Hematocrit 20.1 % (37.0-47.0)
--- NOTE | 2023-12-17 07:57 | W.PN.CD ---
Today's Communication / Plan
-
-Patient with worsening MARYLOU yesterday (creatinine went from 3.6 to 4.8), hyponatremia (sodium went from 132 to 125), and anemia; labs this morning are pending.
-Will likely need dialysis; Nephrology following--to reevaluate and discuss with patient today.
Impression / Plan
-
Severe acute on chronic HFpEF, (PCWP 47 at 77 kg on 12/09/2023)
-Unclear dry weight
-Patient with worsening MARYLOU yesterday (creatinine went from 3.6 to 4.8), hyponatremia (sodium went from 132 to 125), and anemia; labs this morning are pending.
-Will likely need dialysis; Nephrology following--to reevaluate and discuss with patient today.
MARYLOU--does not appear to be cardiorenal (normal cardiac output/cardiac index).
-Likely approaching HD requirement; creatinine 4.8 yesterday--labs from this a.m. pending.
Mixed valvular heart disease
-Moderate , moderate/severe AR, mild/moderate MS
-Will likely need valve surgery in the future, if an appropriate candidate; reevaluate as outpatient.
-Records have been requested
Congenital heart surgery as a child, no records available, multiple requests
Right 5th toe osteomyelitis
-Amputation performed on 12/07/2023
-Debridement 12/14/2023
-No cardiac complications detected from surgery
Sepsis in the setting of right 5th toe infection in a diabetic patient
PAD, vascular surgery involved, high risk of progressive renal failure noted
Anemia, appears acute on chronic
-Old iron studies concerning for iron deficiency => transfused and getting IV iron
-Hgb down to 7.2 this morning, transfuse per primary service
Type I vs 2 DM, uncontrolled, Hgba1c 9.6%, per primary => multiple complications
-Pt hopes not to take SGLT2-I in future.
-She thinks she has type II DM, we generally do not use SGLT2-I in type I DM
Prior CVA, refused LINQ
Guillain [place] syndrome, with chronic LLE weakness
Subjective:
No cardiac complaints this a.m. Has diffuse pain 'all over'.
DATA:
RHC 12/09/2023:
Weight (kg):77.1
PA (s/d/x mmHg): 99/31/54
PCWP (a/v/x mmHg): 55/64/47
RV (s/x mmHg): 100/17
RA (a/v/x mmHg):
Echo 12/08/2023:
Left ventricle is small in size.
Hyperdynamic left ventricular systolic function.
Stage II diastolic dysfunction suggestive of abnormal relaxation and increased
filling pressures.
Dense mitral annular calcification.
Mild to moderate mitral stenosis (calcific in nature with the dense MAC. The
anterior MV leaflet moves normally).
Mild mitral regurgitation.
Thickened aortic valve with restricted leaflet motion.
Moderate aortic stenosis.
Moderate aortic regurgitation.
Mild tricuspid regurgitation.
Estimated PASP 60-65 mmHg.
No significant change since the prior study of 04/07/2023.
The nature of her congenital heart disease and congenital heart surgery at age
5 is unknown. She reports correction of a blockage near her aorta or aortic
valve.
Physical Exam
Vital Signs/Labs
Vital Signs
Temp Pulse Resp BP Pulse Ox
98.1 F 91 18 146/65 100
12/17/23 03:36 12/17/23 03:36 12/17/23 03:36 12/17/23 03:36 12/17/23 03:36
12/16/23 12/17/23 12/18/23
06:59 06:59 06:59
Actual Weight 75.977 kg 75.892 kg
12/17/23 07:24
PT 18.3 Sec (11.4-14.6) H 12/16/23 06:12
INR 1.54 12/16/23 06:12
Magnesium 2.0 mg/dl (1.6-2.3) 12/14/23 08:46
12/08/23
08:30
Dvu-[id number]-[id number] Pept 73399
Physical Exam
Constitutional: No acute distress and Comfortable
EENT: Anicteric
Cardiovascular: Rhythm & rate is regular, Pedal edema present (1+), Systolic murmur present (3/6) and S1S2 is normal
Respiratory: Respiratory effort normal and Lungs clear to auscul.
GI: Soft
Neuro/Psych: AO x 3
Other: Skin (Warm, dry)
Data Reviewed
-
Date of Service: December 17, 2023
EKG: Tracing Personally Visualized and interpreted (Telemetry: Sinus rhythm)
Labs: Labs Reviewed by me (Pending)
[2023-12-17 08:25] LABS: ALT (SGPT) < 10 U/L (0-35); AST (SGOT) 84 U/L (14-36); Albumin 2.8 g/dl (3.5-5.0); Alkaline Phosphatase 657 U/L (38-126); Blood Urea Nitrogen 93 mg/dl (7-17); Calcium 7.7 mg/dl (8.4-10.2); Carbon Dioxide 22 mmol/L (22-30); Chloride 87 mmol/L (98-107); Glucose 80 mg/dl (70-99); Potassium 4.5 mmol/L (3.5-5.1); Sodium 123 mmol/L (135-145); Total Bilirubin 0.9 mg/dl (0.2-1.3); Total Protein 6.6 g/dl (6.3-8.2)
[2023-12-17 08:37] LABS: Estimated Creatinine Clearance 16 ml/min; eGFR 12.78
[2023-12-17 08:42] LABS: Glucose - Point of Care 98 mg/dl (70-99)
[2023-12-17] MEDS: NOVOLOG FLEXPEN-LOW RESISTANCE SC ×3 (08:45→17:18)
[2023-12-17] MEDS: HEPARIN 5000 UNITS SC ×2 (09:06→21:01)
[2023-12-17] MEDS: COLACE PO ×2 (09:06→21:00)
[2023-12-17] MEDS: ASPIR LOW (ENTERIC COATED) 81 MG PO (09:06)
[2023-12-17] MEDS: NOVOLOG FLEXPEN 3 UNITS SC (09:07)
--- NOTE | 2023-12-17 09:40 | W.PN.NEPH.PH ---
Today's Communication / Plan
-
Possible HD if pt agrees
Assessment/Plan
-
IMP:
Diabetic Foot Infection Right Foot, right 5th toe amputation
Sepsis secondary to the above
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
MARYLOU with CKD stage 4
hyponatremia
Acute on chr anemia
A gap met acidosis
ASCVD
Multiple prior CVAs. LINQ recorder recommended; however, patient declined.
Chronic HFpEF
Congenital heart surgery as a child, no records available
Moderate , AR, mild to mod MS
Guillain [place] syndrome, with chronic LLE weakness
Plan:
MARYLOU-cardiorenal, cr peak at 4.8 now down to 4.1off bumex, uop ~900cc, BUN>90
she has significant advanced CKD and now MARYLOU with fluctuating UOP
She is not very complaint with diuresis and refuses to be back
she reports 10lbs over her dry wt, high PCWP 47mmhg at 77kg
I think that she likely benefit from HD to optimize her status
also she needs angiogram to assess vascular burden to determine further need of surg of right leg
worsening hyponatremia, dilutional form hypervolemia
Bp stable
hgb low, prn transfusion with HD
abx per ID
prognosis is guarded fpc
high risk encounter
d/w primary and pt in detail
TT spent 45min
-
-
Date of Service: December 17, 2023
CC / HPI / ROS
-
Chief Complaint:
MARYLOU with CKD
History of Present Illness:
MARYLOU/Cr worsening to 4.8, better at 4.1, UOP 900cc
Na dropping to 123
s/p RHC 6/5. PCWP 47
Hgb low 7.- worsening leucocytosis
wt no change
Review of Systems:
no cp or sob
still with edema
Labs
-
Labs:
WBC 33.8 10^3/uL (4.8-10.8) H 12/17/23 07:24
RBC 2.77 10^6/uL (4.20-5.40) L 12/17/23 07:24
Hgb 7.1 g/dL (12.0-16.0) L 12/17/23 07:24
Hct 20.1 % (37.0-47.0) L* 12/17/23 07:24
Plt Count 312 10^3/uL (130-400) 12/17/23 07:24
eGFR 12.78 12/17/23 07:24
Dvu-T-Tyrzwlgvltv Pept 25737 pg/ml 12/08/23 08:30
Albumin 2.8 g/dl (3.5-5.0) L 12/17/23 07:24
Physical Exam
-
Vital Signs:
Vital Signs
Temp Pulse Resp BP Pulse Ox
98.1 F 91 18 146/65 100
12/17/23 03:36 12/17/23 03:36 12/17/23 03:36 12/17/23 03:36 12/17/23 03:36
Cardiovascular:: Regular rate and rhythm
Respiratory:: Bilateral: CTA
Lung Excursion:: Normal
Abdomen:: Nontender and Soft
Extremity Edema:: +1: Bilateral:
[place] Catheter: No
--- NOTE | 2023-12-17 12:48 | W.PN.POD ---
Today's Communication
Today's Communication
Possible HD today , hopefully angiogram per vascular
Assessment / Plan
-
Rt foot S/p 5th toe amputation 12/06
S/P Rt foot # 2 debridement and Rt 4th toe amputation POD #3
CKD - need dialysis
Rt foot cellulitis.
Diabetic small vessel disease.
PAD
Diabetic neuropathy.
Plan ; Changed dressings to Rt foot , applied compressive dressings to Rt foot .
WbC count trending up from 20>24 >32>33.
IV abx per ID
No wt bearing today on Rt foot, commode to bedside
Pt to use surgical shoe to Rt heel wt bear only.
Discussed in length with patient that unless angiogram done it is difficult to plan for definitive surgical plan also the infection can not be controlled due to poor flow to the foot. No guarantees given to save the limb,
Patient agreed to go for HD today,
Subjective
Chief Complaint
Rt 5th toe gangrene and Rt foot infection
Subjective
Patient seen at bedside, in no acute distress, awake, alert, oriented, no SOB or chest pain, she denies any new pedal complaints . Denies any Rt foot pain, no calf pain no fever, chills.
Has strike through bleeding noted in Rt foot dressings
Objective
Temp Pulse Resp BP Pulse Ox
98.1 F 91 18 146/65 100
12/17/23 03:36 12/17/23 03:36 12/17/23 03:36 12/17/23 03:36 12/17/23 03:36
12/17/23 07:24
Vital Signs and Lab results were reviewed.
Rt foot palpable Dp and dopplerable PT pedal pulses
Rt foot decreased edema .
Rt foot surgical debrided site and 4th toe amputation noted to have minimal bloody oozing, no puruelence noted, no new necrosis, no foul odor noted. has healthy deep tissues at the amputation site.
forefoot area around the bases of the digits with paler appearance, no crepitus felt, no signs of any abscess felt, no red streaking up the leg
[2023-12-17 13:30] LABS: Glucose - Point of Care 90 mg/dl (70-99)
[2023-12-17] MEDS: NOVOLOG FLEXPEN SC ×2 (13:36→17:17)
[2023-12-17 13:42] VITALS: BP 154/61; BP_SYST 85
--- NOTE | 2023-12-17 14:32 | W.PN.HOSP.TC ---
Today's Communication/Plan
-
IRAD consult for HD cath placement
continue other care
Assessment / Plan
Assessment / Plan
Lower right foot MRI 12/06
1. 2.5 cm ABSCESS dorsal to the right 5th MTP joint.
2. SOFT TISSUE EMPHYSEMA tracking around the proximal phalanx of the right 5th toe.
3. SEVERE CELLULITIS throughout the right forefoot.
4. No MRI evidence for acute osteomyelitis.
5. Diffuse signal abnormality throughout the muscles of the right foot (either severe diffuse myositis or acute on chronic muscle denervation secondary to diabetes mellitus).
Lower right foot MRI 12/13
1. PROBABLE ACUTE OSTEOMYELITIS in the right 5th metatarsal head and proximal phalanx of the 4th toe.
2. Large 5.0 cm region of nonenhancing soft tissue necrosis in the lateral right forefoot.
3. No MRI evidence for rim-enhancing enhancing fluid collection to suggest an abscess.
4. Recent amputation of the 5th toe.
5. Severe acute myositis or muscle denervation throughout the right foot.
6. Severe diffuse cellulitis.
US abd
IMPRESSION:
1. Right lower extremity: IVANIA 1.08 within normal limits. TBI mildly reduced 0.60. Eccentric wall calcification noted in vessels. Proximal superficial femoral artery velocity elevation of 357 cm/s with velocity ratio of 2.22 consistent with at least
50-74% stenosis. Monophasic waveforms noted distal to the stenosis.
2. Left lower extremity: IVANIA 1.31 within normal limits. TBI minimally reduced 0.67. Eccentric wall calcification noted in vessels. Multiphasic waveforms throughout lower extremity arteries with distal superficial femoral artery velocity elevation
245 cm/s and velocity ratio of 2.13 consistent with likely 50-74% stenosis. Multiphasic waveforms are maintained distal to the stenosis. Continuous Doppler waverforms at the dorsalis pedis and posterior tibial arteries also remain multiphasic.

1. Right Diabetic foot infection
s/p 5th toe amputation POD #4
Right foot cellulitis
-Patient presented for initial right foot fifth dual infection/cellulitis
-MRI of the foot showing soft tissue emphysema/cellulitis and abscess of MTP joint of fifth toe
-Underwent fifth toe amputation by podiatry, patient is postop day 4
-Intraoperative culture growing MSSA/Streptococcus agalactia. Intraoperative bone margin pathology is negative for any osteomyelitis
-Patient started to having new worsening leukocytosis and a repeat MRI on 12/13 showing large soft tissue necrosis area
-Patient underwent debridement of right foot on 12/13 evening by podiatry, repeat wound culture negative for any growth
-Antibiotic escalated to Zosyn again from [facility]
-Patient at high risk of limb loss with poor vasculature, which is difficult in turn to be intervened upon due to ongoing renal failure/contrast exposure risk.
2. MARYLOU with CKD stage IV
AGAP metabolic acidosis -resolved
Proteinuria
-cr improved to 1.8 with Bumex drip, now again up trending
-Urine protein/cr ratio of 0.6
-Discussed with nephrology, renal function needs to be monitored, may need HD if not improved.
-RHC on 12/08 showing PCWP of 47mmHg and was started on Bumex drip, renal function did improve but declined again later .
-Creatinine improved to 4.1 with some urine output although no significant improvement and nephrology recommended to initiate HD
3. PAD
-Significant arterial disease with possible suggestive of bilateral proximal superficial femoral artery stenosis of 50 to 74%
-Vascular surgery involved in care and patient currently not a candidate for angiography due to renal failure
-Unfortunately patient did risk of nonhealing right lower extremity wound and further need of amputation without vascular intervention.
4. Acute on chronic diastolic congestive heart failure
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
-Patient weight down trended with Bumex drip, some repeat upward trend on weight
-Currently diuretics being held with worsening renal failure
-Cardiology following and help appreciated
5. Diabetes mellitus
Hypoglycemia
-presumed Type I as diagnosed age 12.
-Diabetes CONSTRUCTION ELECTRICIAN consulted, recommendations appreciated
6. Iron def anemia
Acute blood loss anemia from post op
-Ferritin of 74.6 with saturation of 12% and acute phase suggestive of iron deficiency anemia
-Got 7 doses of IV Ferrlecit.
-Patient has significant blood loss from surgical site debridement required multiple dressing and localized thrombin rx
-hbg 7 today, discussed with nephro and requested to hold as will try to give with HD.
7. h/o of CVA
Legally blind in right eye
- Multiple prior CVAs. LINQ recorder recommended; however, patient declined.
- Continue daily ASA. Will hold Plavix acutely in the event that surgical intervention is needed.
Guillain [place] syndrome, with chronic LLE weakness
Hyponatremia
Moderate /AR
Mild to mod MS
DVT Prophylaxis: Heparin Subq
Code Status: Full
12/14 discussed patient prognosis and complexity of case with son over the phone. All questions answered. I have specified to patient and son that if renal function did not improve will require dialysis
12/16 patient continued to remain hesitant to initiate dialysis. I was hopeful that patient would have some renal function recovery although after with discussion with nephro it is clear that patient should start on hemodialysis. This was discussed
at length with patient an patient remain adamant about not being started on dialysis. Patient hesitantly agreed after repeated discussion by myself and certified adaptive physical educator.
Son also aware about this.
Anticipated Discharge: > 48 hours
Subjective/Interval History
-
Date of Service: December 17, 2023
No reported abdominal pain/cramping
No nausea or vomiting
Objective Data
-
Labs:
Laboratory Results
12/17/23 12/17/23
07: 16:00
WBC 33.8 H
Hgb 7.1 L
Hct 20.1 L*
Plt Count 312
Sodium 123 L Pending
Potassium 4.5 Pending
Chloride 87 L Pending
Carbon Dioxide 22 Pending
BUN 93 H Pending
Creatinine 4.1 H* Pending
Glucose 80 Pending
Calcium 7.7 L Pending
Total Bilirubin 0.9
AST 84 H
ALT < 10
Alkaline Phosphatase 657 H
Vital Signs:
Vital Signs
Temp Pulse Resp BP Pulse Ox
98 F 85 16 154/61 100
12/17/23 13:42 12/17/23 13:42 12/17/23 13:42 12/17/23 13:42 12/17/23 13:42
I&O
12/16/23 12/17/23 12/18/23
06:59 06:59 06:59
Intake Total 1080 / 1080 1230 / 1230 50 / 50
Output Total 900 / 900 300 / 300
Balance 1080 / 1080 330 / 330 -250 / -250
Review of Systems
-
Respiratory: Reports No Symptoms
Cardiac: Reports No Symptoms
Abdomen/GI: Reports No Symptoms
Physical Exam
-
General: Comfortable; Negative Obese
HEENT: Negative Oxygen
Respiratory: Clear to Auscultation
Cardiac: Regular Rhythm and S1/S2; Negative Murmur
GI: Soft, Nontender and Nondistended
Musculoskeletal: Other (Right lower extremity dressing in place )
Neuro: Awake, Alert, Oriented and No Motor Deficits
Psych: Calm
[2023-12-17 15:00] VITALS: BP 155/71
[2023-12-17] MEDS: MANNITOL 25% 12.5 GRAMS IV ×2 (15:53→16:58)
[2023-12-17] MEDS: HEPARIN 500 UNITS IV ×2 (15:54→16:58)
--- NOTE | 2023-12-17 16:36 | W.PN.NEPH.HD ---
Assessment
-
Pt seen during HD
vitals stable
JVD noted
Temp catheter functions well
HD again tomorrow
d/w vasc, ok for angiogram tomorrow
if possible will plan HD after procedure
To summaries she has advanced CKD stage4 and MARYLOU with fluctuating cr, UOP and high PCWP
U na low suggest cardiorenal and her wt is still above her DW , echo noted, DDstage2, valvular disease
reports not tolerant to diuretics with body aches and not compliant in taking meds
She was refusing HD coz she watched her maternal uncle on dialysis
So far she has not shown significant improvement of renal function
we reviewed that will cont to monitor for renal function although probability of renal recovery is uncertain
she is also at higher risk of limb loss but with out Angiogram further plan is limited
reviewed with pt in detail on multiple visits today and she understands the need of HD and salvage limb if possible
Also discussed about contrast exposure and risk of renal injury, hopefully can help with dialysis
consent obtained and signed
She seem to accept the plan and has no further questions
d/w nursing
d/w ID, vascular
Progress Note - Hemodialysis
-
Date of Service: December 17, 2023
Duration: 2 hours
Potassium Bath: 3
Calcium Bath: 2.5
Opti-Dialyzer: 160
Ultrafiltration: Other (1kg)
Blood Flow: 200
Dialysate Flow: Other (400)
Heparin: yesx2
EPO: [id number]
[2023-12-17 16:37] LABS: Blood Urea Nitrogen 93 mg/dl (7-17); Calcium 7.7 mg/dl (8.4-10.2); Carbon Dioxide 22 mmol/L (22-30); Chloride 86 mmol/L (98-107); Glucose 54 mg/dl (70-99); Potassium 4.1 mmol/L (3.5-5.1); Sodium 124 mmol/L (135-145)
[2023-12-17 16:47] LABS: Estimated Creatinine Clearance 16 ml/min; eGFR 12.07
[2023-12-17 16:48] LABS: Glucose - Point of Care 77 mg/dl (70-99)
[2023-12-17] MEDS: RETACRIT 10000 UNITS IV (17:09)
[2023-12-17] MEDS: HEPARIN 2100 UNITS INTRACATH (18:02)
[2023-12-17] MEDS: LIPITOR 80 MG PO (18:05)
[2023-12-17 18:48] LABS: Hepatitis B Surface Antigen Negative (Negative)
[2023-12-17 19:06] LABS: Hepatitis B Core Ab, Total Negative (Negative); Hepatitis C Antibody Negative (Negative)
[2023-12-17 19:12] LABS: Hepatitis B Surface Antibody Positive
[2023-12-17 19:43] VITALS: BP 138/62
[2023-12-17 21:20] LABS: Glucose - Point of Care 127 mg/dl (70-99)
[2023-12-17] MEDS: LANTUS SC (23:06)
[2023-12-17 23:22] VITALS: BP 133/65
[2023-12-18] VITALS (9 sets, daily range): BP systolic 120–162; BP diastolic 54–74; BMI 29.5
[2023-12-18] MEDS: ZOSYN 50 IV ×3 (00:10→17:04)
--- NOTE | 2023-12-18 02:37 | PTCARENOTE ---
Pt had a left AC peripheral IV removed by VAT at 0045. Pt called out for a nurse around 0100 and this RN found pt with a large amount of blood draining from the old left AC site and a large amount of sangineous blood on her bed. Pt's sheets and
gowns changed and pt was placed back in bed by this RN. Pt reports feeling dizzy when standing. BP while sitting on the edge of the bed was 125/60 in her right arm, HR 98. House SENIOR UNDERWRITER [place] Brewer notified, no new orders at this time. CBC ordered
for the AM. Bleeding in left arm stopped after about ten minutes and dressed with 4x4 gauze and Dillan wrap.
[2023-12-18] MEDS: TYLENOL 1000 MG PO ×2 (04:01→20:20)
[2023-12-18 05:55] LABS: Glucose - Point of Care 124 mg/dl (70-99)
[2023-12-18] MEDS: NOVOLOG FLEXPEN-LOW RESISTANCE SC ×3 (06:42→17:13)
--- NOTE | 2023-12-18 07:14 | PN.DE.MGMTRT ---
Insulin Management
- -
12/18/2023: Diabetes Management Follow up:
Patient admitted with Right fifth toe discoloration, open wound.
PMH: CAD(CABG 1981), CKD, CVA x2, HTN, Retinopathy, CHF and T2DM. A1C 9.2%, Cr 3.0 eGFR 18.59, was taking Lantus 18-20 units @ HS and Lispro 4 units AC. Patient states she was diagnosed with diabetes at age 12 and started insulin at age 13. She
states her A1C is greatly improved. She has a glucose monitor and tests daily.
Patient is awake, alert and oriented, resting in bed, able to discuss diabetes management.
POD # 11 s/p Right 5th toe amputation, POD 4 s/p tissue debridement R foot and amputation 4th toe.
Cr 4.3, eGFR 12.7 yesterday; labs not reported at this time.
Patient to IR 12/16 for procedure. Had no lunch, glucose 54 pre dinner, and 127 @ HS. Will reduce AC novolog from 3 units to 2 units. Will continue 2 unit Lantus @ HS.
Will cont to follow. Closely monitor and adjust insulin dose if necessary
Diabetes History
- -
Type of Diabetes: 2 requiring insulin
Pre-Admission Diabetes Regimen
12/17/23 12/17/23
07: 15:50
Creatinine 4.1 H* 4.3 H*
Lab Results
Hemoglobin A1c 9.2 % (4.0-5.6) H 12/06/23 08:12
Insulin Pump Settings
IP Diabetes Regimen
12/17/23 12/17/23 12/17/23
07:24 08:32 13:27
Glucose 80
POC Glucose 98 90
12/17/23 12/17/23 12/17/23
15:50 16:47 21:19
Glucose 54 L*
POC Glucose 77 127 H
12/18/23
05:53
Glucose
POC Glucose 124 H
Meal type: Dinner
Amount consumed: 100%
Patient Education
[2023-12-18 07:57] LABS: % Basophils 0.3 % (0-2); % Eosinophils 0.3 % (0-6); % Immature Granulocytes 1.8 % (0-0.5); % Lymphocytes 4.9 % (20.5-51.1); % Monocytes 4.9 % (1.7-9.3); % Neutrophils 87.8 % (42.2-75.2); Absolute Basophils 0.1 10^3/uL (0-0.2); Absolute Eosinophils 0.1 10^3/uL (0-0.7); Absolute Immature Granulocytes 0.5 10^3/uL (0-0.05); Absolute Lymphocytes 1.3 10^3/uL (1.2-3.4); Absolute Monocytes 1.3 10^3/uL (0.1-0.6); Absolute Neutrophils 23.9 10^3/uL (1.4-6.5); Mean Corp Hgb Conc. 33.8 g/dL (33.0-37.0); Mean Corpuscular Volume 73.9 fL (81.0-99.0); Mean Platelet Volume 8.9 fL (7.4-10.4); Nucleated Red Blood Cells % 0.2 %; Platelet Count 297 10^3/uL (130-400); Red Blood Cell Count 2.64 10^6/uL (4.20-5.40); Red Cell Dist. Width 22.7 % (11.5-14.5); White Blood Cell Count 27.2 10^3/uL (4.8-10.8)
[2023-12-18 08:00] LABS: Hematocrit 19.5 % (37.0-47.0); Hemoglobin 6.6 g/dL (12.0-16.0)
[2023-12-18] MEDS: FLEXBUMIN 25% FOR HEMODIALYSIS 12.5 GRAMS IV ×2 (08:00→09:40)
[2023-12-18] MEDS: MANNITOL 25% 12.5 GRAMS IV ×2 (08:05→09:41)
[2023-12-18] MEDS: RETACRIT 10000 UNITS IV (08:11)
--- NOTE | 2023-12-18 08:52 | W.PN.CD ---
Today's Communication / Plan
-
start metoprolol 25mg qhs
continue HD
need to establish 'dry weight'
Impression / Plan
-
Severe acute on chronic HFpEF, (PCWP 47 at 77 kg on 12/09/2023)
-Unclear dry weight
-Patient with worsening MARYLOU yesterday (creatinine went from 3.6 to 4.8), hyponatremia (sodium went from 132 to 125), and anemia; labs this morning are pending.
HD initiated
pSVT:
-brief asx runs, but given concominant hypertension will start a small dose of bb
-start metoprolol succinate qhs 25 mg
MARYLOU--does not appear to be cardiorenal (normal cardiac output/cardiac index).
-Likely approaching HD requirement; creatinine 4.8 yesterday--labs from this a.m. pending.
Mixed valvular heart disease
-Moderate , moderate/severe AR, mild/moderate MS
-Will likely need valve surgery in the future, if an appropriate candidate; reevaluate as outpatient.
-[facility] has no records
Congenital heart surgery as a child, no records available, multiple requests
Right 5th toe osteomyelitis
-Amputation performed on 12/07/2023
-Debridement 12/14/2023
-No cardiac complications detected from surgery
Sepsis in the setting of right 5th toe infection in a diabetic patient
PAD, vascular surgery involved, high risk of progressive renal failure noted
Anemia, appears acute on chronic
-Old iron studies concerning for iron deficiency => transfused and getting IV iron
-Hgb down to 7.2 this morning, transfuse per primary service
Type I vs 2 DM, uncontrolled, Hgba1c 9.6%, per primary => multiple complications
-Pt hopes not to take SGLT2-I in future.
-She thinks she has type II DM, we generally do not use SGLT2-I in type I DM
Prior CVA, refused LINQ
Guillain [place] syndrome, with chronic LLE weakness
Subjective:
No cardiac complaints this a.m. Getting tired of wearing compression, no sob or cp
DATA:
RHC 12/09/2023:
Weight (kg):77.1
PA (s/d/x mmHg): 99/31/54
PCWP (a/v/x mmHg): 55/64/47
RV (s/x mmHg): 100/17
RA (a/v/x mmHg):
Echo 12/08/2023:
Left ventricle is small in size.
Hyperdynamic left ventricular systolic function.
Stage II diastolic dysfunction suggestive of abnormal relaxation and increased
filling pressures.
Dense mitral annular calcification.
Mild to moderate mitral stenosis (calcific in nature with the dense MAC. The
anterior MV leaflet moves normally).
Mild mitral regurgitation.
Thickened aortic valve with restricted leaflet motion.
Moderate aortic stenosis.
Moderate aortic regurgitation.
Mild tricuspid regurgitation.
Estimated PASP 60-65 mmHg.
No significant change since the prior study of 04/07/2023.
The nature of her congenital heart disease and congenital heart surgery at age
5 is unknown. She reports correction of a blockage near her aorta or aortic
valve.
Physical Exam
Vital Signs/Labs
Vital Signs
Temp Pulse Resp BP Pulse Ox
98.0 F 93 16 132/57 98
12/18/23 07:00 12/18/23 07:00 12/18/23 07:00 12/18/23 07:00 12/18/23 07:00
12/17/23 12/18/23 12/19/23
06:59 06:59 06:59
Actual Weight 75.892 kg 75.466 kg
12/18/23 07:45
PT 18.3 Sec (11.4-14.6) H 12/16/23 06:12
INR 1.54 12/16/23 06:12
Magnesium 2.0 mg/dl (1.6-2.3) 12/14/23 08:46
12/08/23
08:30
[id number]-[id number] Pept [id number]
Physical Exam
Constitutional: No acute distress
Cardiovascular: Rhythm & rate is regular, Pedal edema present (trace bl) and Systolic murmur present
Respiratory: Respiratory effort normal, Lungs clear to auscul., Wheeze Absent, Crackles Absent and Rhonchi Absent
Neuro/Psych: AO x 3
Data Reviewed
-
Date of Service: December 18, 2023
EKG: Other (tele brief as psvt)
[2023-12-18] MEDS: COLACE PO ×2 (09:01→20:23)
--- NOTE | 2023-12-18 09:16 | W.PN.NEPH.HD ---
Assessment
-
Patient seen onHD
sbp 162 at current u/f
mannitol times two
HD again tomorrow
Progress Note - Hemodialysis
-
Date of Service: December 18, 2023
Duration: 45 minutes and 2 hours
Potassium Bath: 3
Calcium Bath: 2.5
Opti-Dialyzer: 160
Ultrafiltration: Other (1kg)
Blood Flow: 300
Dialysate Flow: 600
Heparin: none
EPO: 10,000
[2023-12-18 10:53] LABS: ALT (SGPT) 19 U/L (0-35); AST (SGOT) 110 U/L (14-36); Albumin 2.8 g/dl (3.5-5.0); Alkaline Phosphatase 725 U/L (38-126); Blood Urea Nitrogen 66 mg/dl (7-17); Carbon Dioxide 21 mmol/L (22-30); Chloride 91 mmol/L (98-107); Glucose 97 mg/dl (70-99); Potassium 4.1 mmol/L (3.5-5.1); Sodium 127 mmol/L (135-145); Total Bilirubin 0.9 mg/dl (0.2-1.3); Total Protein 6.6 g/dl (6.3-8.2)
[2023-12-18] MEDS: HEPARIN 2200 UNITS INTRACATH (11:03)
[2023-12-18 11:06] LABS: Estimated Creatinine Clearance 19 ml/min; eGFR 15.45
[2023-12-18] MEDS: HEPARIN 5000 UNITS SC ×2 (11:25→20:20)
[2023-12-18] MEDS: ASPIR LOW (ENTERIC COATED) 81 MG PO (11:25)
[2023-12-18 11:40] LABS: Glucose - Point of Care 102 mg/dl (70-99)
[2023-12-18] MEDS: TYLENOL PO (13:48)
--- NOTE | 2023-12-18 14:59 | W.PN.HOSP.TC ---
Today's Communication/Plan
-
HD per nephro
angiography Thursday
Assessment / Plan
Assessment / Plan
Lower right foot MRI 12/06
1. 2.5 cm ABSCESS dorsal to the right 5th MTP joint.
2. SOFT TISSUE EMPHYSEMA tracking around the proximal phalanx of the right 5th toe.
3. SEVERE CELLULITIS throughout the right forefoot.
4. No MRI evidence for acute osteomyelitis.
5. Diffuse signal abnormality throughout the muscles of the right foot (either severe diffuse myositis or acute on chronic muscle denervation secondary to diabetes mellitus).
Lower right foot MRI 12/13
1. PROBABLE ACUTE OSTEOMYELITIS in the right 5th metatarsal head and proximal phalanx of the 4th toe.
2. Large 5.0 cm region of nonenhancing soft tissue necrosis in the lateral right forefoot.
3. No MRI evidence for rim-enhancing enhancing fluid collection to suggest an abscess.
4. Recent amputation of the 5th toe.
5. Severe acute myositis or muscle denervation throughout the right foot.
6. Severe diffuse cellulitis.
US abd
IMPRESSION:
1. Right lower extremity: IVANIA 1.08 within normal limits. TBI mildly reduced 0.60. Eccentric wall calcification noted in vessels. Proximal superficial femoral artery velocity elevation of 357 cm/s with velocity ratio of 2.22 consistent with at least
50-74% stenosis. Monophasic waveforms noted distal to the stenosis.
2. Left lower extremity: IVANIA 1.31 within normal limits. TBI minimally reduced 0.67. Eccentric wall calcification noted in vessels. Multiphasic waveforms throughout lower extremity arteries with distal superficial femoral artery velocity elevation
245 cm/s and velocity ratio of 2.13 consistent with likely 50-74% stenosis. Multiphasic waveforms are maintained distal to the stenosis. Continuous Doppler waverforms at the dorsalis pedis and posterior tibial arteries also remain multiphasic.

1. Right Diabetic foot infection
s/p 5th toe amputation POD #4
Right foot cellulitis
-Patient presented for initial right foot fifth dual infection/cellulitis
-MRI of the foot showing soft tissue emphysema/cellulitis and abscess of MTP joint of fifth toe
-Underwent fifth toe amputation by podiatry, patient is postop day 4
-Intraoperative culture growing MSSA/Streptococcus agalactia. Intraoperative bone margin pathology is negative for any osteomyelitis
-Patient started to having new worsening leukocytosis and a repeat MRI on 12/13 showing large soft tissue necrosis area
-Patient underwent debridement of right foot on 12/13 evening by podiatry, repeat wound culture negative for any growth
-Antibiotic escalated to Zosyn again from Ancef
-Patient at high risk of limb loss with poor vasculature, which is difficult in turn to be intervened upon due to ongoing renal failure/contrast exposure risk.
2. MARYLOU with CKD stage IV
AGAP metabolic acidosis -resolved
Proteinuria
-cr improved to 1.8 with Bumex drip, now again up trending
-Urine protein/cr ratio of 0.6
-Discussed with nephrology, renal function needs to be monitored, may need HD if not improved.
-RHC on 12/08 showing PCWP of 47mmHg and was started on Bumex drip, renal function did improve but declined again later .
-Patient started on hemodialysis yesterday and able to tolerate without issues
3. PAD
-Significant arterial disease with possible suggestive of bilateral proximal superficial femoral artery stenosis of 50 to 74%
-Vascular surgery involved in care and patient currently not a candidate for angiography due to renal failure
-Patient was planned to get angiography today although could not get it due to labor mediator timing, will get it on Thursday
4. Acute on chronic diastolic congestive heart failure
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
-Patient weight down trended with Bumex drip, some repeat upward trend on weight
-Currently diuretics being held with worsening renal failure
-Cardiology following and help appreciated
5. Diabetes mellitus
Hypoglycemia
-presumed Type I as diagnosed age 12.
-Diabetes DOGGER consulted, recommendations appreciated
6. Iron def anemia
Acute blood loss anemia from post op
-Ferritin of 74.6 with saturation of 12% and acute phase suggestive of iron deficiency anemia
-Got 7 doses of IV Ferrlecit.
-Patient has significant blood loss from surgical site debridement required multiple dressing and localized thrombin rx
-hbg 6.6 today, giving 1 u prbc with HD
7. h/o of CVA
Legally blind in right eye
- Multiple prior CVAs. LINQ recorder recommended; however, patient declined.
- Continue daily ASA. Will hold Plavix acutely in the event that surgical intervention is needed.
Guillain [place] syndrome, with chronic LLE weakness
Hyponatremia
Moderate /AR
Mild to mod MS
DVT Prophylaxis: Heparin Subq
Code Status: Full
12/14 discussed patient prognosis and complexity of case with son over the phone. All questions answered. I have specified to patient and son that if renal function did not improve will require dialysis
12/16 patient continued to remain hesitant to initiate dialysis. I was hopeful that patient would have some renal function recovery although after with discussion with nephro it is clear that patient should start on hemodialysis. This was discussed
at length with patient an patient remain adamant about not being started on dialysis. Patient hesitantly agreed after repeated discussion by myself and routeman.
Son also aware about this.
Anticipated Discharge: > 48 hours
Subjective/Interval History
-
Date of Service: December 18, 2023
patient mentation clearer today
denies of having any issues
Objective Data
-
Labs:
Laboratory Results
12/18/23
07:45
WBC 27.2 H
Hgb 6.6 L*
Hct 19.5 L*
Plt Count 297
Sodium 127 L
Potassium 4.1
Chloride 91 L
Carbon Dioxide 21 L
BUN 66 H
Creatinine 3.5 H
Glucose 97
Calcium 8.0 L
Total Bilirubin 0.9
AST 110 H
ALT 19
Alkaline Phosphatase 725 H
Vital Signs:
Vital Signs
Temp Pulse Resp BP Pulse Ox
98.2 F 92 20 149/59 98
12/18/23 11:00 12/18/23 11:00 12/18/23 11:00 12/18/23 11:00 12/18/23 11:00
I&O
12/17/23 12/18/23 12/19/23
06:59 06:59 06:59
Intake Total 1230 / 1230 50 / 580 530 / 530
Output Total 900 / 900 1050 / 1050 250 / 250
Balance 330 / 330 -1000 / -470 280 / 280
Review of Systems
-
Respiratory: Reports No Symptoms
Cardiac: Reports No Symptoms
Abdomen/GI: Reports No Symptoms
Physical Exam
-
General: Comfortable; Negative Obese
HEENT: Negative Oxygen
Respiratory: Clear to Auscultation
Cardiac: Regular Rhythm and S1/S2; Negative Murmur
GI: Soft, Nontender and Nondistended
Musculoskeletal: Other (Right lower extremity dressing in place )
Neuro: Awake, Alert, Oriented and No Motor Deficits
Psych: Calm
--- NOTE | 2023-12-18 15:12 | W.PN.ID1 ---
Date of Service
Date of Service: December 18, 2023
Today's Communication
Continue antibiotics
Assessment / Plan
Diabetic Foot Infection
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
- revision with 4th toe amp (12/14/23)
PAD
DM1 - uncontrolled
CKD4
- now on HD
Congenital Heart disease
/AR
Pulm HTN
Hx Guillain [place] syndrome, with chronic LLE weakness
Recommendations:
Blood cultures without growth.
MRI previously revealed presence of suspected osteomyelitis of the fifth met head and proximal phalanx of the fourth toe.
Patient is S/P revision surgery 12/14/23.
Continue Zosyn. Await further cultures.
-Follow wbc
Patient at high risk for limb loss.
����������������������������������������������������������
Chief Complaint
-: Leukocytosis and Other (Right foot diabetic foot infection)
Subjective / Review of Systems
Review of Systems: No Fever and No Chills
Vital Signs / Physical Exam
Vital Signs
Vital Signs
Temp Pulse Resp BP Pulse Ox
98.2 F 92 20 149/59 98
12/18/23 11:00 12/18/23 11:00 12/18/23 11:00 12/18/23 11:00 12/18/23 11:00
Physical Exam
Constitutional: No Acute Distress, Comfortable, Chronically Ill and Non-toxic
Pulmonary: Non Labored
Gastrointestinal: Soft and Non Distended
Wound: Other (Right foot dressed. Emir wrap in place to bilateral lower extremities)
Neurological: Awake and Alert
Psychological: Calm
Objective Data
Lab Data
Lab Results
12/18/23 07:45
12/18/23 07:45
ESR 105 mm/hour (0-20) H 12/06/23 00:52
PT 18.3 Sec (11.4-14.6) H 12/16/23 06:12
INR 1.54 12/16/23 06:12
Estimated Creat Clear 19 ml/min 12/18/23 07:45
Lactic Acid 1.2 mmol/L (0.7-2.0) 12/06/23 00:52
Total Bilirubin 0.9 mg/dl (0.2-1.3) 12/18/23 07:45
AST 110 U/L (14-36) H 12/18/23 07:45
ALT 19 U/L (0-35) 12/18/23 07:45
Alkaline Phosphatase 725 U/L (38-126) H 12/18/23 07:45
C-Reactive Protein 223.70 mg/L (0.0-10.00) H 12/06/23 00:52
Most recent labs reviewed.
Micro Results:
12/14/23 20:41 Anaerobic Culture - Preliminary
Foot - Right Culture pending. Anaerobic cultures are examined after 3
days incubation. Additional information to follow.
12/14/23 20:41 Wound Culture - Preliminary
Foot - Right No growth
Gram Stain - Preliminary
12/07/23 16:14 Wound Culture - Final
Foot - Right S aureus-Methicillin Sensitive
Streptococcus agalactiae
Gram Stain - Final
12/07/23 16:14 Anaerobic Culture - Final
Foot - Right
12/06/23 03:26 Blood Culture - Final
Blood/Venous No Growth - Final Report
12/06/23 00:51 Blood Culture - Final
Blood/Venous No Growth - Final Report
12/06/23 22:32 MRSA Screen - Final
Nose No Methicillin Resistant Staphylococcus aureus isolated.
Imaging:
12/14/2023 MRI RLE: 1. PROBABLE ACUTE OSTEOMYELITIS in the right 5th metatarsal head and proximal phalanx of the 4th toe. 2. Large 5.0 cm region of nonenhancing soft tissue necrosis in the lateral right forefoot. 3. No MRI evidence for
rim-enhancing enhancing fluid collection to suggest an abscess. 4. Recent amputation of the 5th toe. 5. Severe acute myositis or muscle denervation throughout the right foot. 6. Severe diffuse cellulitis.
[2023-12-18] MEDS: LIPITOR 80 MG PO (17:04)
[2023-12-18 17:11] LABS: Glucose - Point of Care 149 mg/dl (70-99)
--- NOTE | 2023-12-18 18:28 | W.PN.POD ---
Today's Communication
Today's Communication
Possible angiogram Thursday
Assessment / Plan
-
Rt foot S/p 5th toe amputation 12/06
S/P Rt foot # 2 debridement of all necrotic tissue and Rt 4th toe amputation 12/14/2023
CKD - on HD now
Rt foot cellulitis.
Diabetic small vessel disease.
PAD
Diabetic neuropathy.
Plan ; Changed dressings to Rt foot , applied compressive dressings to Rt foot .
WbC count down to 27 from 33
IV abx per ID
No wt bearing today on Rt foot, commode to bedside
Pt to use surgical shoe to Rt heel wt bear only.
Possible angiogram Thursday.
Podiatry will plan for further surgical intervention after vascular work up.
Subjective
Chief Complaint
Rt 5th toe gangrene and Rt foot infection
Subjective
Patient seen at bedside, in no acute distress, awake, alert, oriented, no SOB or chest pain, she denies any new pedal complaints . Denies any Rt foot pain, no calf pain no fever, chills.
Has strike through bleeding noted in Rt foot dressings
Objective
Temp Pulse Resp BP Pulse Ox
98.3 F 94 16 120/66 100
12/18/23 15:00 12/18/23 15:00 12/18/23 15:00 12/18/23 15:00 12/18/23 15:00
12/18/23 07:45
12/18/23 07:45
Vital Signs and Lab results were reviewed.
Rt foot palpable Dp and dopplerable PT pedal pulses
Rt foot decreased edema .
Rt foot surgical debrided site and 4th toe amputation noted to have minimal bloody oozing, no purulence noted, no new necrosis, no foul odor noted. has healthy deep tissues at the amputation site.
forefoot area around the bases of the digits with paler appearance, no crepitus felt, no signs of any abscess felt, no red streaking up the leg
[2023-12-18] MEDS: NOVOLOG FLEXPEN 2 UNITS SC (19:12)
[2023-12-18 21:54] LABS: Glucose - Point of Care 192 mg/dl (70-99)
[2023-12-18] MEDS: LANTUS SC (22:16)
[2023-12-18] MEDS: TOPROL XL PO (22:17)
[2023-12-19] VITALS (8 sets, daily range): BP systolic 136–170; BP diastolic 53–73; BMI 29.3
[2023-12-19] MEDS: ZOSYN 50 IV ×3 (00:10→16:44)
[2023-12-19] MEDS: TYLENOL PO ×2 (03:02→21:02)
[2023-12-19 06:17] LABS: Hematocrit 25.6 % (37.0-47.0)
[2023-12-19 06:37] LABS: Hemoglobin 8.4 g/dL (12.0-16.0)
[2023-12-19 07:08] LABS: Glucose - Point of Care 184 mg/dl (70-99)
--- NOTE | 2023-12-19 07:40 | W.PN.CD ---
Today's Communication / Plan
-
-Continue metoprolol
-Dialysis for fluid management.
Impression / Plan
-
Severe acute on chronic HFpEF, (PCWP 47 at 77 kg on 12/09/2023)
-Unclear dry weight /end-stage renal failure - dialysis initiated.
-Acute on chronic renal failure and anemia; labs this morning are pending.
HD initiated -on dialysis today. Plan to remove 1 L today.
pSVT:
-brief asx runs, but given concomitant hypertension
-Metoprolol 25 mg once a day started. Limited due to fluctuating blood pressure.
-Continue metoprolol succinate qhs 25 mg
Mixed valvular heart disease
-Moderate , moderate/severe AR, mild/moderate MS
-Will likely need valve surgery in the future, if an appropriate candidate; reevaluate as outpatient.
-[facility] has no records
Congenital heart surgery as a child, no records available, multiple requests
Right 5th toe osteomyelitis
-Amputation performed on 12/07/2023
-Debridement 12/14/2023
-No cardiac complications detected from surgery
Sepsis in the setting of right 5th toe infection in a diabetic patient
PAD, vascular surgery involved, high risk of progressive renal failure noted
Anemia, appears acute on chronic
-Old iron studies concerning for iron deficiency => transfused and getting IV iron
-Hgb down to 7.2 this morning, transfuse per primary service
Type I vs 2 DM, uncontrolled, Hgba1c 9.6%, per primary => multiple complications
-Pt hopes not to take SGLT2-I in future.
-She thinks she has type II DM, we generally do not use SGLT2-I in type I DM
Prior CVA, refused LINQ
Guillain [place] syndrome, with chronic LLE weakness
Subjective:
No cardiac complaints this a.m. tolerating dialysis.
DATA:
RHC 12/09/2023:
Weight (kg):77.1
PA (s/d/x mmHg): 99/54
PCWP (a/v/x mmHg): 55/64/47
RV (s/x mmHg): 100/17
RA (a/v/x mmHg):
Echo 12/08/2023:
Left ventricle is small in size.
Hyperdynamic left ventricular systolic function.
Stage II diastolic dysfunction suggestive of abnormal relaxation and increased
filling pressures.
Dense mitral annular calcification.
Mild to moderate mitral stenosis (calcific in nature with the dense MAC. The
anterior MV leaflet moves normally).
Mild mitral regurgitation.
Thickened aortic valve with restricted leaflet motion.
Moderate aortic stenosis.
Moderate aortic regurgitation.
Mild tricuspid regurgitation.
Estimated PASP 60-65 mmHg.
No significant change since the prior study of 04/07/2023.
The nature of her congenital heart disease and congenital heart surgery at age
5 is unknown. She reports correction of a blockage near her aorta or aortic
valve.
Physical Exam
Vital Signs/Labs
Vital Signs
Temp Pulse Resp BP Pulse Ox
97.6 F 95 18 136/59 99
12/19/23 03:04 12/19/23 03:04 12/19/23 03:04 12/19/23 03:04 12/19/23 03:04
12/18/23 12/19/23 12/20/23
06:59 06:59 06:59
Actual Weight 75.466 kg 74.888 kg
12/19/23 05:40
12/18/23 07:45
PT 18.3 Sec (11.4-14.6) H 12/16/23 06:12
INR 1.54 12/16/23 06:12
Magnesium 2.0 mg/dl (1.6-2.3) 12/14/23 08:46
12/08/23
08:30
Rfl-[id number]-Wqwiamohkzv Pept [id number]
Physical Exam
Constitutional: No acute distress and Comfortable
EENT: Anicteric and Moist mucous membranes
Cardiovascular: Rhythm & rate is regular, Pedal edema present, JVD present and Systolic murmur present
Respiratory: Respiratory effort normal and Lungs clear to auscul.
GI: Soft, Non tender and Normal bowel sounds
Neuro/Psych: Alert, Oriented and AO x 3
Data Reviewed
-
Date of Service: December 19, 2023
Medical Decision Making: Reviewed Test Results, Independent Historian Assessment, Test Interpretation and Review of Case with other Provider
EKG: Tracing Personally Visualized and interpreted
Echo: Report Reviewed by me
Labs: Labs Reviewed by me
Old Records: Reviewed
[2023-12-19 08:55] LABS: Blood Urea Nitrogen 38 mg/dl (7-17); Calcium 8.7 mg/dl (8.4-10.2); Carbon Dioxide 26 mmol/L (22-30); Chloride 95 mmol/L (98-107); Estimated Creatinine Clearance 22 ml/min; Glucose 158 mg/dl (70-99); Potassium 3.8 mmol/L (3.5-5.1); Sodium 134 mmol/L (135-145); eGFR 17.88
[2023-12-19] MEDS: NOVOLOG FLEXPEN SC ×2 (09:14→17:26)
[2023-12-19] MEDS: NOVOLOG FLEXPEN-LOW RESISTANCE 1 UNITS SC ×2 (09:18→18:31)
--- NOTE | 2023-12-19 09:26 | W.PN.NEPH.HD ---
Assessment
-
patient seen on HD
sbp 173
patient refused toprol last pm for htn
Next dialysis will be on Thursday
Progress Note - Hemodialysis
-
Date of Service: December 19, 2023
Duration: 3 hours
Potassium Bath: 3
Calcium Bath: 2.5
Opti-Dialyzer: 160
Ultrafiltration: Other (1.5 to 2kg)
Blood Flow: 400
Dialysate Flow: 600
Heparin: none
EPO: none
--- NOTE | 2023-12-19 09:46 | W.PN.ID1 ---
Date of Service
Date of Service: December 19, 2023
Today's Communication
Continue antibiotics.
Assessment / Plan
Diabetic Foot Infection
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
- revision with 4th toe amp (12/14/23)
PAD
DM1 - uncontrolled (HbA1c = 9.2 [12/06/23] )
CKD4
- now on HD
Congenital Heart disease
/AR
Pulm HTN
Hx Guillain [place] syndrome, with chronic LLE weakness
Recommendations:
Blood cultures without growth.
MRI previously revealed presence of suspected osteomyelitis of the fifth met head and proximal phalanx of the fourth toe.
Patient is S/P revision surgery 12/14/23.
Continue Zosyn.
-Follow wbc
For possible angiogram early next week
Patient at high risk for limb loss.
����������������������������������������������������������
Chief Complaint
-: Leukocytosis and Other (Right foot diabetic foot infection)
Subjective / Review of Systems
Review of Systems: No Fever and No Chills
Vital Signs / Physical Exam
Vital Signs
Vital Signs
Temp Pulse Resp BP Pulse Ox
97.6 F 87 16 162/73 100
12/19/23 06:00 12/19/23 06:00 12/19/23 06:00 12/19/23 06:00 12/19/23 06:00
Physical Exam
Constitutional: No Acute Distress, Comfortable, Chronically Ill and Non-toxic
Pulmonary: Non Labored
Gastrointestinal: Non Distended
Wound: Other (Right foot dressed. Emir wrap in place to bilateral lower extremities)
Neurological: Awake and Alert
Psychological: Calm
Lines: HD Cath
Objective Data
Lab Data
Lab Results
12/19/23 05:40
12/19/23 08:06
ESR 105 mm/hour (0-20) H 12/06/23 00:52
PT 18.3 Sec (11.4-14.6) H 12/16/23 06:12
INR 1.54 12/16/23 06:12
Estimated Creat Clear 22 ml/min 12/19/23 08:06
Lactic Acid 1.2 mmol/L (0.7-2.0) 12/06/23 00:52
Total Bilirubin 0.9 mg/dl (0.2-1.3) 12/18/23 07:45
AST 110 U/L (14-36) H 12/18/23 07:45
ALT 19 U/L (0-35) 12/18/23 07:45
Alkaline Phosphatase 725 U/L (38-126) H 12/18/23 07:45
C-Reactive Protein 223.70 mg/L (0.0-10.00) H 12/06/23 00:52
Most recent labs reviewed.
Micro Results:
12/14/23 20:41 Anaerobic Culture - Preliminary
Foot - Right Culture pending. Anaerobic cultures are examined after 3
days incubation. Additional information to follow.
12/14/23 20:41 Wound Culture - Preliminary
Foot - Right No growth
Gram Stain - Preliminary
12/07/23 16:14 Wound Culture - Final
Foot - Right S aureus-Methicillin Sensitive
Streptococcus agalactiae
Gram Stain - Final
12/07/23 16:14 Anaerobic Culture - Final
Foot - Right
12/06/23 03:26 Blood Culture - Final
Blood/Venous No Growth - Final Report
12/06/23 00:51 Blood Culture - Final
Blood/Venous No Growth - Final Report
12/06/23 22:32 MRSA Screen - Final
Nose No Methicillin Resistant Staphylococcus aureus isolated.
Imaging:
12/14/2023 MRI RLE: 1. PROBABLE ACUTE OSTEOMYELITIS in the right 5th metatarsal head and proximal phalanx of the 4th toe. 2. Large 5.0 cm region of nonenhancing soft tissue necrosis in the lateral right forefoot. 3. No MRI evidence for
rim-enhancing enhancing fluid collection to suggest an abscess. 4. Recent amputation of the 5th toe. 5. Severe acute myositis or muscle denervation throughout the right foot. 6. Severe diffuse cellulitis.
[2023-12-19] MEDS: ASPIR LOW (ENTERIC COATED) 81 MG PO (11:09)
[2023-12-19] MEDS: HEPARIN 5000 UNITS SC (11:09)
[2023-12-19] MEDS: TYLENOL 1000 MG PO (11:12)
[2023-12-19] MEDS: COLACE PO ×2 (11:12→21:01)
[2023-12-19 11:18] LABS: Glucose - Point of Care 123 mg/dl (70-99)
[2023-12-19] MEDS: NOVOLOG FLEXPEN-LOW RESISTANCE SC ×2 (11:24→17:26)
[2023-12-19 12:27] LABS: Hematocrit 24.6 % (37.0-47.0); Hemoglobin 8.4 g/dL (12.0-16.0); Mean Corp Hgb Conc. 34.1 g/dL (33.0-37.0); Mean Corpuscular Hgb 25.5 pg (27.0-31.0); Mean Corpuscular Volume 74.8 fL (81.0-99.0); Mean Platelet Volume 8.7 fL (7.4-10.4); Platelet Count 306 10^3/uL (130-400); Red Blood Cell Count 3.29 10^6/uL (4.20-5.40); Red Cell Dist. Width 22.5 % (11.5-14.5); White Blood Cell Count 26.4 10^3/uL (4.8-10.8)
[2023-12-19] MEDS: NOVOLOG FLEXPEN 2 UNITS SC ×2 (12:48→18:32)
--- NOTE | 2023-12-19 14:18 | W.PN.HOSP.TC ---
Today's Communication/Plan
-
continue current care plan
angiography/plasty on mon
Assessment / Plan
Assessment / Plan
Lower right foot MRI 12/06
1. 2.5 cm ABSCESS dorsal to the right 5th MTP joint.
2. SOFT TISSUE EMPHYSEMA tracking around the proximal phalanx of the right 5th toe.
3. SEVERE CELLULITIS throughout the right forefoot.
4. No MRI evidence for acute osteomyelitis.
5. Diffuse signal abnormality throughout the muscles of the right foot (either severe diffuse myositis or acute on chronic muscle denervation secondary to diabetes mellitus).
Lower right foot MRI 12/13
1. PROBABLE ACUTE OSTEOMYELITIS in the right 5th metatarsal head and proximal phalanx of the 4th toe.
2. Large 5.0 cm region of nonenhancing soft tissue necrosis in the lateral right forefoot.
3. No MRI evidence for rim-enhancing enhancing fluid collection to suggest an abscess.
4. Recent amputation of the 5th toe.
5. Severe acute myositis or muscle denervation throughout the right foot.
6. Severe diffuse cellulitis.
US abd
IMPRESSION:
1. Right lower extremity: IVANIA 1.08 within normal limits. TBI mildly reduced 0.60. Eccentric wall calcification noted in vessels. Proximal superficial femoral artery velocity elevation of 357 cm/s with velocity ratio of 2.22 consistent with at least
50-74% stenosis. Monophasic waveforms noted distal to the stenosis.
2. Left lower extremity: IVANIA 1.31 within normal limits. TBI minimally reduced 0.67. Eccentric wall calcification noted in vessels. Multiphasic waveforms throughout lower extremity arteries with distal superficial femoral artery velocity elevation
245 cm/s and velocity ratio of 2.13 consistent with likely 50-74% stenosis. Multiphasic waveforms are maintained distal to the stenosis. Continuous Doppler waverforms at the dorsalis pedis and posterior tibial arteries also remain multiphasic.

1. Right Diabetic foot infection
s/p 5th toe amputation POD #4
Right foot cellulitis
-Patient presented for initial right foot fifth dual infection/cellulitis
-MRI of the foot showing soft tissue emphysema/cellulitis and abscess of MTP joint of fifth toe
-Underwent fifth toe amputation by podiatry, patient is postop day 4
-Intraoperative culture growing MSSA/Streptococcus agalactia. Intraoperative bone margin pathology is negative for any osteomyelitis
-Patient started to having new worsening leukocytosis and a repeat MRI on 12/13 showing large soft tissue necrosis area
-Patient underwent debridement of right foot on 12/13 evening by podiatry, repeat wound culture negative for any growth
-Antibiotic escalated to Zosyn again from [facility]
-Patient at high risk of limb loss with poor vasculature, which is difficult in turn to be intervened upon due to ongoing renal failure/contrast exposure risk.
2. MARYLOU with CKD stage IV
AGAP metabolic acidosis -resolved
Proteinuria
-cr improved to 1.8 with Bumex drip, now again up trending
-Urine protein/cr ratio of 0.6
-Discussed with nephrology, renal function needs to be monitored, may need HD if not improved.
-RHC on 12/08 showing PCWP of 47mmHg and was started on Bumex drip, renal function did improve but declined again later .
-Patient started on hemodialysis on 12/16 and able to tolerate without issues
3. PAD
-Significant arterial disease with possible suggestive of bilateral proximal superficial femoral artery stenosis of 50 to 74%
-Vascular surgery involved in care and patient currently not a candidate for angiography due to renal failure
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
4. Acute on chronic diastolic congestive heart failure
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
-Patient weight down trended with Bumex drip, some repeat upward trend on weight
-Currently diuretics being held with worsening renal failure
-Cardiology following and help appreciated
5. Diabetes mellitus
Hypoglycemia
-presumed Type I as diagnosed age 12.
-Diabetes [employer] consulted, recommendations appreciated
6. Iron def anemia
Acute blood loss anemia from post op
-Ferritin of 74.6 with saturation of 12% and acute phase suggestive of iron deficiency anemia
-Got 7 doses of IV Ferrlecit.
-Patient has significant blood loss from surgical site debridement required multiple dressing and localized thrombin rx
-Hbg stable post 1 u prbc, follow hbg
7. h/o of CVA
Legally blind in right eye
- Multiple prior CVAs. LINQ recorder recommended; however, patient declined.
- Continue daily ASA. Will hold Plavix acutely in the event that surgical intervention is needed.
Guillain [place] syndrome, with chronic LLE weakness
Hyponatremia
Moderate /AR
Mild to mod MS
DVT Prophylaxis: Heparin Subq
Code Status: Full
12/14 discussed patient prognosis and complexity of case with son over the phone. All questions answered. I have specified to patient and son that if renal function did not improve will require dialysis
12/16 patient continued to remain hesitant to initiate dialysis. I was hopeful that patient would have some renal function recovery although after with discussion with nephro it is clear that patient should start on hemodialysis. This was discussed
at length with patient an patient remain adamant about not being started on dialysis. 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
Son also aware about this.
Anticipated Discharge: > 48 hours
Subjective/Interval History
-
Date of Service: December 19, 2023
No new issues overnight
Objective Data
-
Labs:
Laboratory Results
12/19/23 12/19/23 12/19/23
05:40 08:06 12:17
WBC 26.4 H
Hgb 8.4 L D 8.4 L
Hct 25.6 L 24.6 L
Plt Count 306
Sodium 134 L
Potassium 3.8
Chloride 95 L
Carbon Dioxide 26
BUN 38 H
Creatinine 3.1 H
Glucose 158 H
Calcium 8.7
Vital Signs:
Vital Signs
Temp Pulse Resp BP Pulse Ox
97.6 F 91 16 155/66 99
12/19/23 11:10 12/19/23 11:10 12/19/23 11:10 12/19/23 11:10 12/19/23 11:10
I&O
12/18/23 12/19/23 12/20/23
06:59 06:59 06:59
Intake Total 50 / 580 820 / 820
Output Total 1050 / 1050 390 / 390
Balance -1000 / -470 430 / 430
Review of Systems
-
Respiratory: Reports No Symptoms
Cardiac: Reports No Symptoms
Abdomen/GI: Reports No Symptoms
Physical Exam
-
General: Comfortable; Negative Obese
HEENT: Negative Oxygen
Respiratory: Clear to Auscultation
Cardiac: Regular Rhythm and S1/S2; Negative Murmur
GI: Soft, Nontender and Nondistended
Musculoskeletal: Other (Right lower extremity dressing in place )
Neuro: Awake, Alert, Oriented and No Motor Deficits
Psych: Calm
[2023-12-19] MEDS: HEPARIN 1100 UNITS INTRACATH (15:09)
[2023-12-19 15:54] LABS: Glucose - Point of Care 153 mg/dl (70-99)
[2023-12-19 17:23] LABS: Glucose - Point of Care 171 mg/dl (70-99)
[2023-12-19] MEDS: LIPITOR 80 MG PO (17:26)
[2023-12-19] MEDS: AFRIN NASAL SPRAY 1 SPRAYS NASAL (17:26)
--- NOTE | 2023-12-19 18:14 | PTCARENOTE ---
Patient stated they had not urinated today. Denied urinating while passing bowel movement.
[2023-12-19] MEDS: HEPARIN SC (21:02)
[2023-12-19] MEDS: TOPROL XL 25 MG PO (21:19)
[2023-12-19 21:28] LABS: Glucose - Point of Care 231 mg/dl (70-99)
[2023-12-19] MEDS: LANTUS 0.0200000000000000004 UNITS SC (21:31)
[2023-12-20] VITALS (8 sets, daily range): BP systolic 107–163; BP diastolic 66–81; PULSE 83; BMI 28.8
[2023-12-20] MEDS: ZOSYN 50 IV ×4 (00:23→23:10)
[2023-12-20] MEDS: TYLENOL PO ×3 (04:05→13:34)
[2023-12-20 07:34] LABS: Glucose - Point of Care 179 mg/dl (70-99)
[2023-12-20] MEDS: COLACE PO ×2 (08:14→20:19)
[2023-12-20] MEDS: ASPIR LOW (ENTERIC COATED) 81 MG PO (08:18)
[2023-12-20] MEDS: NOVOLOG FLEXPEN 2 UNITS SC ×3 (08:18→17:29)
[2023-12-20] MEDS: NOVOLOG FLEXPEN-LOW RESISTANCE 1 UNITS SC ×2 (08:19→13:31)
[2023-12-20] MEDS: HEPARIN SC ×2 (08:23→20:21)
[2023-12-20] MEDS: AFRIN NASAL SPRAY 1 SPRAYS NASAL (10:55)
[2023-12-20 11:31] LABS: Blood Urea Nitrogen 28 mg/dl (7-17); Calcium 8.9 mg/dl (8.4-10.2); Carbon Dioxide 26 mmol/L (22-30); Chloride 93 mmol/L (98-107); Estimated Creatinine Clearance 23 ml/min; Glucose 151 mg/dl (70-99); Sodium 132 mmol/L (135-145); eGFR 19.37
[2023-12-20 11:39] LABS: Glucose - Point of Care 172 mg/dl (70-99)
--- NOTE | 2023-12-20 12:41 | W.PN.NEPH.PH ---
Today's Communication / Plan
-
Dialysis tomorrow
Likely for angiogram tomorrow of the right lower extremity
Assessment/Plan
-
IMP:
Diabetic Foot Infection Right Foot, right 5th toe amputation
Sepsis secondary to the above
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
MARYLOU with CKD stage 4
hyponatremia
Acute on chr anemia
A gap met acidosis
ASCVD
Multiple prior CVAs. LINQ recorder recommended; however, patient declined.
Chronic HFpEF
Congenital heart surgery as a child, no records available
Moderate , AR, mild to mod MS
Guillain [place] syndrome, with chronic LLE weakness
Plan:
Dialysis tomorrow, orders provide
Will obtain predialysis creatinine level to assess for any recovery
Will continue to reduce dry weight in setting of hypertension on dialysis
For angiography tomorrow in regards to right lower extremity wound
-
-
Date of Service: December 20, 2023
CC / HPI / ROS
-
Chief Complaint:
MARYLOU with CKD
History of Present Illness:
Now on dialysis x 3 treatment
Na improved to 132 following dialysis
s/p RHC 6/5. PCWP 47
ANDRA therapy directed for anemia
Has been on Zosyn for right lower extremity wound
Review of Systems:
no cp or sob
still with edema
Labs
-
Labs:
WBC 26.4 10^3/uL (4.8-10.8) H 12/19/23 12:17
RBC 3.29 10^6/uL (4.20-5.40) L 12/19/23 12:17
Hgb 8.4 g/dL (12.0-16.0) L 12/19/23 12:17
Hct 24.6 % (37.0-47.0) L 12/19/23 12:17
Plt Count 306 10^3/uL (130-400) 12/19/23 12:17
Sodium 132 mmol/L (135-145) L 12/20/23 10:28
Potassium 4.0 mmol/L (3.5-5.1) 12/20/23 10:28
Chloride 93 mmol/L (98-107) L 12/20/23 10:28
Carbon Dioxide 26 mmol/L (22-30) 12/20/23 10:28
BUN 28 mg/dl (7-17) H 12/20/23 10:28
Creatinine 2.9 mg/dL (0.6-1.0) H 12/20/23 10:28
eGFR 19.37 12/20/23 10:28
Glucose 151 mg/dl (70-99) H 12/20/23 10:28
Calcium 8.9 mg/dl (8.4-10.2) 12/20/23 10:28
Dam-D-Xfjyhfxxhlx Pept 31861 pg/ml 12/08/23 08:30
Albumin 2.8 g/dl (3.5-5.0) L 12/18/23 07:45
Physical Exam
-
Vital Signs:
Vital Signs
Temp Pulse Resp BP Pulse Ox
98.7 F 87 16 158/78 100
12/20/23 11:47 12/20/23 11:47 12/20/23 11:47 12/20/23 11:47 12/20/23 11:47
Cardiovascular:: Regular rate and rhythm
--- NOTE | 2023-12-20 13:27 | W.PN.HOSP.TC ---
Today's Communication/Plan
-
For angiogram tomorrow
Continue current care plan
Dialysis per nephro
Assessment / Plan
Assessment / Plan
Lower right foot MRI 12/06
1. 2.5 cm ABSCESS dorsal to the right 5th MTP joint.
2. SOFT TISSUE EMPHYSEMA tracking around the proximal phalanx of the right 5th toe.
3. SEVERE CELLULITIS throughout the right forefoot.
4. No MRI evidence for acute osteomyelitis.
5. Diffuse signal abnormality throughout the muscles of the right foot (either severe diffuse myositis or acute on chronic muscle denervation secondary to diabetes mellitus).
Lower right foot MRI 12/13
1. PROBABLE ACUTE OSTEOMYELITIS in the right 5th metatarsal head and proximal phalanx of the 4th toe.
2. Large 5.0 cm region of nonenhancing soft tissue necrosis in the lateral right forefoot.
3. No MRI evidence for rim-enhancing enhancing fluid collection to suggest an abscess.
4. Recent amputation of the 5th toe.
5. Severe acute myositis or muscle denervation throughout the right foot.
6. Severe diffuse cellulitis.
US abd
IMPRESSION:
1. Right lower extremity: IVANIA 1.08 within normal limits. TBI mildly reduced 0.60. Eccentric wall calcification noted in vessels. Proximal superficial femoral artery velocity elevation of 357 cm/s with velocity ratio of 2.22 consistent with at least
50-74% stenosis. Monophasic waveforms noted distal to the stenosis.
2. Left lower extremity: IVANIA 1.31 within normal limits. TBI minimally reduced 0.67. Eccentric wall calcification noted in vessels. Multiphasic waveforms throughout lower extremity arteries with distal superficial femoral artery velocity elevation
245 cm/s and velocity ratio of 2.13 consistent with likely 50-74% stenosis. Multiphasic waveforms are maintained distal to the stenosis. Continuous Doppler waverforms at the dorsalis pedis and posterior tibial arteries also remain multiphasic.

1. Right Diabetic foot infection
s/p 5th toe amputation POD #4
Right foot cellulitis
-Patient presented for initial right foot fifth dual infection/cellulitis
-MRI of the foot showing soft tissue emphysema/cellulitis and abscess of MTP joint of fifth toe
-Underwent fifth toe amputation by podiatry, patient is postop day 4
-Intraoperative culture growing MSSA/Streptococcus agalactia. Intraoperative bone margin pathology is negative for any osteomyelitis
-Patient started to having new worsening leukocytosis and a repeat MRI on 12/13 showing large soft tissue necrosis area
-Patient underwent debridement of right foot on 12/13 evening by podiatry, repeat wound culture growing bacteriods.
-Antibiotic escalated to Zosyn again from [facility]
-Patient at high risk of limb loss with poor vasculature, which is difficult in turn to be intervened upon due to ongoing renal failure/contrast exposure risk.
2. MARYLOU with CKD stage IV
AGAP metabolic acidosis -resolved
Proteinuria
-cr improved to 1.8 with Bumex drip, now again up trending
-Urine protein/cr ratio of 0.6
-Discussed with nephrology, renal function needs to be monitored, may need HD if not improved.
-RHC on 12/08 showing PCWP of 47mmHg and was started on Bumex drip, renal function did improve but declined again later .
-Patient started on hemodialysis on 12/16 and able to tolerate without issues
3. PAD
-Significant arterial disease with possible suggestive of bilateral proximal superficial femoral artery stenosis of 50 to 74%
-Vascular surgery involved in care and patient currently not a candidate for angiography due to renal failure
-Patient was planned to get angiography today although could not get it due to laboratory supervisor timing, will get it on Thursday
4. Acute on chronic diastolic congestive heart failure
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
-Patient weight down trended with Bumex drip, some repeat upward trend on weight
-Currently diuretics being held with worsening renal failure
-Cardiology following and help appreciated
5. Diabetes mellitus
Hypoglycemia
-presumed Type I as diagnosed age 12.
-Diabetes MANAGER WEALTH MANAGEMENT consulted, recommendations appreciated
6. Iron def anemia
Acute blood loss anemia from post op
-Ferritin of 74.6 with saturation of 12% and acute phase suggestive of iron deficiency anemia
-Got 7 doses of IV Ferrlecit.
-Patient has significant blood loss from surgical site debridement required multiple dressing and localized thrombin rx
-Required total 3 U prbc thic visit
7. h/o of CVA
Legally blind in right eye
- Multiple prior CVAs. LINQ recorder recommended; however, patient declined.
- Continue daily ASA. Will hold Plavix acutely in the event that surgical intervention is needed.
Guillain [place] syndrome, with chronic LLE weakness
Hyponatremia
Moderate /AR
Mild to mod MS
DVT Prophylaxis: Heparin Subq
Code Status: Full
12/14 discussed patient prognosis and complexity of case with son over the phone. All questions answered. I have specified to patient and son that if renal function did not improve will require dialysis
12/16 patient continued to remain hesitant to initiate dialysis. I was hopeful that patient would have some renal function recovery although after with discussion with nephro it is clear that patient should start on hemodialysis. This was discussed
at length with patient an patient remain adamant about not being started on dialysis. Patient hesitantly agreed after repeated discussion by myself and cost coordinator.
Son also aware about this.
Anticipated Discharge: > 48 hours
Subjective/Interval History
-
Date of Service: December 20, 2023
No issues overnight
Objective Data
-
Labs:
Laboratory Results
12/20/23
10:28
Sodium 132 L
Potassium 4.0
Chloride 93 L
Carbon Dioxide 26
BUN 28 H
Creatinine 2.9 H
Glucose 151 H
Calcium 8.9
Vital Signs:
Vital Signs
Temp Pulse Resp BP Pulse Ox
98.7 F 87 16 158/78 100
12/20/23 11:47 12/20/23 11:47 12/20/23 11:47 12/20/23 11:47 12/20/23 11:47
I&O
12/19/23 12/20/23 12/21/23
06:59 06:59 06:59
Intake Total 820 / 820 980 / 980
Output Total 390 / 390
Balance 430 / 430 980 / 980
Review of Systems
-
Respiratory: Reports No Symptoms
Cardiac: Reports No Symptoms
Abdomen/GI: Reports No Symptoms
Physical Exam
-
General: Comfortable; Negative Obese
HEENT: Negative Oxygen
Respiratory: Clear to Auscultation
Cardiac: Regular Rhythm and S1/S2; Negative Murmur
GI: Soft, Nontender and Nondistended
Musculoskeletal: Other (Right lower extremity dressing in place )
Neuro: Awake, Alert, Oriented and No Motor Deficits
Psych: Calm
[2023-12-20 16:16] LABS: Glucose - Point of Care 236 mg/dl (70-99)
[2023-12-20] MEDS: NOVOLOG FLEXPEN-LOW RESISTANCE 2 UNITS SC (17:29)
[2023-12-20] MEDS: LIPITOR 80 MG PO (17:29)
[2023-12-20] MEDS: TYLENOL 1000 MG PO (20:21)
[2023-12-20 21:05] LABS: Glucose - Point of Care 209 mg/dl (70-99)
[2023-12-20] MEDS: LANTUS 0.0200000000000000004 UNITS SC (21:47)
[2023-12-20] MEDS: TOPROL XL 25 MG PO (21:47)
[2023-12-21] VITALS (16 sets, daily range): BP systolic 139–172; BP diastolic 58–75; BMI 29.1
[2023-12-21] MEDS: TYLENOL PO ×3 (04:03→20:51)
[2023-12-21 06:06] LABS: Glucose - Point of Care 174 mg/dl (70-99)
[2023-12-21] MEDS: NOVOLOG FLEXPEN SC ×3 (06:17→19:30)
[2023-12-21] MEDS: NOVOLOG FLEXPEN-LOW RESISTANCE 1 UNITS SC (06:18)
[2023-12-21 08:11] LABS: Hematocrit 26.7 % (37.0-47.0); Hemoglobin 8.6 g/dL (12.0-16.0); Mean Corp Hgb Conc. 32.2 g/dL (33.0-37.0); Mean Corpuscular Hgb 25.3 pg (27.0-31.0); Mean Corpuscular Volume 78.5 fL (81.0-99.0); Mean Platelet Volume 9.3 fL (7.4-10.4); Platelet Count 359 10^3/uL (130-400); Red Cell Dist. Width 23.9 % (11.5-14.5); White Blood Cell Count 17.1 10^3/uL (4.8-10.8)
[2023-12-21] MEDS: COLACE PO ×2 (08:13→20:16)
[2023-12-21] MEDS: ASPIR LOW (ENTERIC COATED) 81 MG PO (08:13)
[2023-12-21] MEDS: HEPARIN SC ×2 (08:13→20:16)
[2023-12-21] MEDS: ZOSYN 50 IV ×2 (08:13→18:35)
--- NOTE | 2023-12-21 08:51 | PN.DE.MGMTRT ---
Insulin Management
- -
12/21/2023: Diabetes Management F/U:
Patient admitted with Right fifth toe discoloration, open wound.
PMH: CAD(CABG 1981), CKD, CVA x2, HTN, Retinopathy, CHF and T2DM. A1C 9.2%, Cr 3.0 eGFR 18.59, was taking Lantus 18-20 units @ HS and Lispro 4 units AC. Patient states she was diagnosed with diabetes at age 12 and started insulin at age 13. She
states her A1C is greatly improved. She has a glucose monitor and tests daily.
Patient is awake, alert and oriented, resting in bed, able to discuss diabetes management.
POD # 14 s/p Right 5th toe amputation, POD #7 s/p tissue debridement R foot and amputation 4th toe. Cr 4.2, eGFR 12.42 today.
Patient is scheduled for Angiogram today, she is NPO this morning.
Glucose 129 fasting, premeal range 172 to 236, requiring 1-2 units of corrective insulin yesterday.
Will increase AC NovoLog to 3 units. Will continue 2 unit Lantus @ HS.
Will cont to follow. Closely monitor and adjust insulin dose if necessary
Diabetes History
- -
Type of Diabetes: 2 requiring insulin
Pre-Admission Diabetes Regimen
12/20/23
10:28
Creatinine 2.9 H
Lab Results
Hemoglobin A1c 9.2 % (4.0-5.6) H 12/06/23 08:12
Insulin Pump Settings
IP Diabetes Regimen
12/20/23 12/20/23 12/20/23
10:28 11:38 16:15
Glucose 151 H
POC Glucose 172 H 236 H
12/20/23 12/21/23
21:02 06:02
Glucose
POC Glucose 209 H 174 H
Meal type: Dinner
Meal type: Lunch
Meal type: Breakfast
Amount consumed: 40%
Amount consumed: 50%
Amount consumed: 90%
Patient Education
[2023-12-21] MEDS: RETACRIT 6000 UNITS IV (09:03)
[2023-12-21 09:08] LABS: Blood Urea Nitrogen 34 mg/dl (7-17); Calcium 9.1 mg/dl (8.4-10.2); Carbon Dioxide 21 mmol/L (22-30); Chloride 94 mmol/L (98-107); Estimated Creatinine Clearance 16 ml/min; Glucose 129 mg/dl (70-99); Potassium 3.9 mmol/L (3.5-5.1); Sodium 130 mmol/L (135-145); eGFR 12.42
--- NOTE | 2023-12-21 09:27 | W.PN.HOSP.TC ---
Today's Communication/Plan
-
Dialysis
Status post diagnostic arteriogram, intravascular lithotripsy of the posterior tibial artery and proximal SFA, balloon angioplasty and nitroglycerin injection of posterior tibial artery
Continue antibiotics
Assessment / Plan
Assessment / Plan
Physical Exam
General: Comfortable; Negative Obese
HEENT: Negative Oxygen
Respiratory: Clear to Auscultation
Cardiac: Regular Rhythm and S1/S2; Negative Murmur
GI: Soft, Nontender and Nondistended
Musculoskeletal: Other (Right lower extremity dressing in place )
Neuro: Awake, Alert, Oriented and No Motor Deficits
Psych: Calm
Lower right foot MRI 12/06
1. 2.5 cm ABSCESS dorsal to the right 5th MTP joint.
2. SOFT TISSUE EMPHYSEMA tracking around the proximal phalanx of the right 5th toe.
3. SEVERE CELLULITIS throughout the right forefoot.
4. No MRI evidence for acute osteomyelitis.
5. Diffuse signal abnormality throughout the muscles of the right foot (either severe diffuse myositis or acute on chronic muscle denervation secondary to diabetes mellitus).
Lower right foot MRI 12/13
1. PROBABLE ACUTE OSTEOMYELITIS in the right 5th metatarsal head and proximal phalanx of the 4th toe.
2. Large 5.0 cm region of nonenhancing soft tissue necrosis in the lateral right forefoot.
3. No MRI evidence for rim-enhancing enhancing fluid collection to suggest an abscess.
4. Recent amputation of the 5th toe.
5. Severe acute myositis or muscle denervation throughout the right foot.
6. Severe diffuse cellulitis.
US abd
IMPRESSION:
1. Right lower extremity: IVANIA 1.08 within normal limits. TBI mildly reduced 0.60. Eccentric wall calcification noted in vessels. Proximal superficial femoral artery velocity elevation of 357 cm/s with velocity ratio of 2.22 consistent with at least
50-74% stenosis. Monophasic waveforms noted distal to the stenosis.
2. Left lower extremity: IVANIA 1.31 within normal limits. TBI minimally reduced 0.67. Eccentric wall calcification noted in vessels. Multiphasic waveforms throughout lower extremity arteries with distal superficial femoral artery velocity elevation
245 cm/s and velocity ratio of 2.13 consistent with likely 50-74% stenosis. Multiphasic waveforms are maintained distal to the stenosis. Continuous Doppler waverforms at the dorsalis pedis and posterior tibial arteries also remain multiphasic.

1. Right Diabetic foot infection
s/p 5th toe amputation POD #4 status post diagnostic arteriogram, intravascular lithotripsy of the posterior tibial artery and proximal SFA, balloon angioplasty and nitroglycerin injection of posterior tibial artery on 12/21/23
Right foot cellulitis
-Patient presented for initial right foot fifth dual infection/cellulitis
-MRI of the foot showing soft tissue emphysema/cellulitis and abscess of MTP joint of fifth toe
-Underwent fifth toe amputation by podiatry, patient is postop day 4
-Intraoperative culture growing MSSA/Streptococcus agalactia. Intraoperative bone margin pathology is negative for any osteomyelitis
-Patient started to having new worsening leukocytosis and a repeat MRI on 12/13 showing large soft tissue necrosis area
-Patient underwent debridement of right foot on 12/13 evening by podiatry, repeat wound culture growing bacteriods.
-Antibiotic escalated to Zosyn again from [facility]
-Patient at high risk of limb loss with poor vasculature, which is difficult in turn to be intervened upon due to ongoing renal failure/contrast exposure risk.
-No weight bearing today on Rt foot, commode to bedside
-Pt to use surgical shoe to Rt heel wt bear only.
2. MARYLOU with CKD stage IV
AGAP metabolic acidosis -resolved
Proteinuria
-cr improved to 1.8 with Bumex drip, now again up trending
-Urine protein/cr ratio of 0.6
-Continue dialysis as per nephrology
-RHC on 12/08 showing PCWP of 47mmHg and was started on Bumex drip, renal function did improve but declined again later .
-Patient started on hemodialysis on 12/16 and able to tolerate without issues
3. PAD
-Significant arterial disease with possible suggestive of bilateral proximal superficial femoral artery stenosis of 50 to 74%
-Vascular surgery involved in care and patient currently not a candidate for angiography due to renal failure
-Status post diagnostic arteriogram, intravascular lithotripsy of the posterior tibial artery and proximal SFA, balloon angioplasty and nitroglycerin injection of posterior tibial artery on 12/21/23
4. Acute on chronic diastolic congestive heart failure
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
-Patient weight down trended with Bumex drip, some repeat upward trend on weight
-Currently diuretics being held with worsening renal failure
-Cardiology following and help appreciated
5. Diabetes mellitus
Hypoglycemia
-presumed Type I as diagnosed age 12.
-Diabetes FAMILY ASSESSMENT WORKER consulted, recommendations appreciated
-Insulin being adjusted as appropriate
6. Iron def anemia
Acute blood loss anemia from post op
-Ferritin of 74.6 with saturation of 12% and acute phase suggestive of iron deficiency anemia
-Got 7 doses of IV Ferrlecit.
-Patient has significant blood loss from surgical site debridement required multiple dressing and localized thrombin rx
-Required total 3 U prbc thic visit
7. h/o of CVA
Legally blind in right eye
- Multiple prior CVAs. LINQ recorder recommended; however, patient declined.
- Continue daily ASA. Will hold Plavix acutely in the event that surgical intervention is needed.
8. pSVT
-Continue metoprolol succinate qhs 25 mg
Guillain [place] syndrome, with chronic LLE weakness
Hyponatremia
Congenital heart surgery as a child, no records available, multiple requests
Moderate /AR
Mild to mod MS
-Will likely need valve surgery in the future, if an appropriate candidate; reevaluate as outpatient.
DVT Prophylaxis: Heparin Subq
Code Status: Full
12/14 Dr. Haq discussed patient prognosis and complexity of case with son over the phone. All questions answered. Dr. Haq specified to patient and son that if renal function did not improve then patient will require dialysis
12/16 patient continued to remain hesitant to initiate dialysis. Dr. Haq was hopeful that patient would have some renal function recovery although after with discussion with nephro it is clear that patient should start on hemodialysis. This was
discussed at length with patient and patient remained adamant about not being started on dialysis. Patient hesitantly agreed after repeated discussion by Dr. Haq and tobacco stemmer.
Patient's son was also aware about this.
Anticipated Discharge: > 48 hours
Subjective/Interval History
-
Date of Service: December 21, 2023
Patient was seen and examined. She was getting dialysis at the time she was seen, no new significant complaints, but she was concerned about all of her medical conditions.
Objective Data
-
Labs:
Laboratory Results
12/21/23
07:08
WBC 17.1 H
Hgb 8.6 L
Hct 26.7 L
Plt Count 359
Sodium 130 L
Potassium 3.9
Chloride 94 L
Carbon Dioxide 21 L
BUN 34 H
Creatinine 4.2 H*
Glucose 129 H
Calcium 9.1
Vital Signs:
Vital Signs
Temp Pulse Resp BP Pulse Ox
97.4 F 68 18 157/69 99
12/21/23 03:00 12/21/23 03:00 12/21/23 03:00 12/21/23 03:00 12/21/23 03:00
I&O
12/20/23 12/21/23 12/22/23
06:59 06:59 06:59
Intake Total 980 / 980 720 / 720
Output Total 0 / 0
Balance 980 / 980 720 / 720
[2023-12-21] MEDS: HEPARIN 2200 UNITS INTRACATH (11:10)
--- NOTE | 2023-12-21 11:34 | W.PN.CD ---
Today's Communication / Plan
-
angiogram planned for today
no active cardiac issues
I will sign off and return at your request.
Impression / Plan
-
Severe acute on chronic HFpEF, (PCWP 47 at 77 kg on 12/09/2023)
-Unclear dry weight /end-stage renal failure - dialysis initiated.
-Acute on chronic renal failure and anemia; labs this morning are pending.
HD initiated and nephrology managing
pSVT:
-brief asx runs, but given concomitant hypertension
-Metoprolol 25 mg once a day started. Limited due to fluctuating blood pressure.
-Continue metoprolol succinate qhs 25 mg
Mixed valvular heart disease
-Moderate , moderate AR, mild/moderate MS
-Will likely need valve surgery in the future, if an appropriate candidate; reevaluate as outpatient.
-[facility] has no records
Congenital heart surgery as a child, no records available, multiple requests
Right 5th toe osteomyelitis
-Amputation performed on 12/07/2023
-Debridement 12/14/2023
-No cardiac complications detected from surgery
Sepsis in the setting of right 5th toe infection in a diabetic patient
PAD, vascular surgery involved, high risk of progressive renal failure noted
-Angiogram planned for 12/21/23
Anemia, appears acute on chronic
-Old iron studies concerning for iron deficiency => transfused and getting IV iron
-Hgb down to 7.2 this morning, transfuse per primary service
Type I vs 2 DM, uncontrolled, Hgba1c 9.6%, per primary => multiple complications
-Pt hopes not to take SGLT2-I in future.
-She thinks she has type II DM, we generally do not use SGLT2-I in type I DM
Prior CVA, refused LINQ
Guillain [place] syndrome, with chronic LLE weakness
Subjective:
No cardiac complaints this a.m. tolerating dialysis.
DATA:
RHC 12/09/2023:
Weight (kg):77.1
PA (s/d/x mmHg): 99/31/54
PCWP (a/v/x mmHg): 55/64/47
RV (s/x mmHg): 100/17
RA (a/v/x mmHg):
Echo 12/08/2023:
Left ventricle is small in size.
Hyperdynamic left ventricular systolic function.
Stage II diastolic dysfunction suggestive of abnormal relaxation and increased
filling pressures.
Dense mitral annular calcification.
Mild to moderate mitral stenosis (calcific in nature with the dense MAC. The
anterior MV leaflet moves normally).
Mild mitral regurgitation.
Thickened aortic valve with restricted leaflet motion.
Moderate aortic stenosis.
Moderate aortic regurgitation.
Mild tricuspid regurgitation.
Estimated PASP 60-65 mmHg.
No significant change since the prior study of 04/07/2023.
The nature of her congenital heart disease and congenital heart surgery at age
5 is unknown. She reports correction of a blockage near her aorta or aortic
valve.
Physical Exam
Vital Signs/Labs
Vital Signs
Temp Pulse Resp BP Pulse Ox
97.4 F 68 18 157/69 99
12/21/23 03:00 12/21/23 03:00 12/21/23 03:00 12/21/23 03:00 12/21/23 03:00
12/20/23 12/21/23 12/22/23
06:59 06:59 06:59
Actual Weight 73.799 kg 74.588 kg
12/21/23 07:08
12/21/23 07:08
PT 18.3 Sec (11.4-14.6) H 12/16/23 06:12
INR 1.54 12/16/23 06:12
Magnesium 2.0 mg/dl (1.6-2.3) 12/14/23 08:46
12/08/23
08:30
Doa-H-Ximidkmprhg Pept [id number]
Physical Exam
Constitutional: No acute distress
Cardiovascular: Rhythm & rate is regular, Pedal edema is absent and Systolic murmur present
Respiratory: Respiratory effort normal, Lungs clear to auscul., Wheeze Absent and Crackles Absent
Neuro/Psych: AO x 3
Data Reviewed
-
Date of Service: December 21, 2023
EKG: Other (tele brief pSVT. nonsustained)
--- NOTE | 2023-12-21 11:55 | W.PN.NEPH.HD ---
Assessment
-
- feeling well
- needs TDC placement
Progress Note - Hemodialysis
-
Date of Service: December 21, 2023
Duration: 30 minutes and 3 hours
Potassium Bath: 3
Calcium Bath: 2.5
Opti-Dialyzer: 160
Ultrafiltration: Other
Blood Flow: 400
Dialysate Flow: 600
[2023-12-21 12:21] LABS: Glucose - Point of Care 94 mg/dl (70-99)
[2023-12-21] MEDS: NOVOLOG FLEXPEN-LOW RESISTANCE SC ×2 (12:54→17:06)
--- NOTE | 2023-12-21 13:05 | W.SUR.PREOP ---
Pre-Operative Surgical Note
-
I have examined this patient prior to the performance of the scheduled procedure.
The patient's condition is unchanged from the time of the current History and
Physical and the patient is able to undergo the scheduled procedure.
--- NOTE | 2023-12-21 13:13 | W.PN.POD ---
Today's Communication
Today's Communication
Patient for angiogram today
Assessment / Plan
-
Rt foot S/p 5th toe amputation 12/06
S/P Rt foot # 2 debridement of all necrotic tissue and Rt 4th toe amputation 12/14/2023
CKD - on HD now
Rt foot cellulitis.
Diabetic small vessel disease.
PAD
Diabetic neuropathy.
Plan ; Changed dressings to Rt foot , applied compressive dressings to Rt foot .
WbC count down to 17
IV abx per ID
No wt bearing today on Rt foot, commode to bedside
Pt to use surgical shoe to Rt heel wt bear only.
Possible angiogram today and
Podiatry will plan for further surgical intervention after vascular work up.
Subjective
Chief Complaint
Rt 5th toe gangrene and Rt foot infection
Subjective
Patient seen at bedside, in no acute distress, awake, alert, oriented, no SOB or chest pain, she denies any new pedal complaints . Denies any Rt foot pain, no calf pain no fever, chills.
Has strike through bleeding noted in Rt foot dressings
Objective
Temp Pulse Resp BP Pulse Ox
97.4 F 81 18 156/66 100
12/21/23 12:00 12/21/23 12:00 12/21/23 12:00 12/21/23 12:00 12/21/23 12:00
12/21/23 07:08
12/21/23 07:08
Vital Signs and Lab results were reviewed.
Rt foot palpable Dp and dopplerable PT pedal pulses
Rt foot decreased edema .
Rt foot surgical debrided site and 4th and 5th toe amputation noted to have no oozing, no purulence noted, new necrosis around the dorsolateral foot, no foul odor noted.
forefoot area around the bases of the digits with paler appearance, no crepitus felt, no signs of any abscess felt, no red streaking up the leg.
--- NOTE | 2023-12-21 14:29 | W.PN.ID1 ---
Date of Service
Date of Service: December 21, 2023
Assessment / Plan
Diabetic Foot Infection
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
- revision with 4th toe amp (12/14/23)
PAD
DM1 - uncontrolled (HbA1c = 9.2 [12/06/23] )
CKD4
- now on HD
Congenital Heart disease
/AR
Pulm HTN
Hx Guillain Silas syndrome, with chronic LLE weakness
Recommendations:
Blood cultures without growth.
12/13 OR culture bacteroides, aerobic negative
MRI previously revealed presence of suspected osteomyelitis of the fifth met head and proximal phalanx of the fourth toe.
Patient is S/P revision surgery 12/14/23.
Continue Zosyn pending possible angiogram
-Follow wbc - improving
Patient at high risk for limb loss.
����������������������������������������������������������
Chief Complaint
-: Leukocytosis and Other (Right foot diabetic foot infection)
Subjective / Review of Systems
afebrile
bp stable
decling wbc count
k normal
12/13 aerobic culture no growth, anaerobic culture bacteroides
Vital Signs / Physical Exam
Vital Signs
Vital Signs
Temp Pulse Resp BP Pulse Ox
97.4 F 81 14 158/63 100
12/21/23 12:00 12/21/23 13:07 12/21/23 13:07 12/21/23 13:07 12/21/23 13:04
Physical Exam
Constitutional: No Acute Distress
Cardiovascular: Regular Rate and S1/S2; Negative Murmur or Rub
Pulmonary: Clear and Symmetric; Negative Wheezes or Rales
Gastrointestinal: Soft, Non Tender, Non Distended and Normal Bowel Sounds
Skin: Warm and Dry; Negative Rash or Jaundice
Objective Data
Lab Data
Lab Results
12/21/23 07:08
12/21/23 07:08
ESR 105 mm/hour (0-20) H 12/06/23 00:52
PT 18.3 Sec (11.4-14.6) H 12/16/23 06:12
INR 1.54 12/16/23 06:12
Estimated Creat Clear 16 ml/min 12/21/23 07:08
Lactic Acid 1.2 mmol/L (0.7-2.0) 12/06/23 00:52
Total Bilirubin 0.9 mg/dl (0.2-1.3) 12/18/23 07:45
AST 110 U/L (14-36) H 12/18/23 07:45
ALT 19 U/L (0-35) 12/18/23 07:45
Alkaline Phosphatase 725 U/L (38-126) H 12/18/23 07:45
C-Reactive Protein 223.70 mg/L (0.0-10.00) H 12/06/23 00:52
Most recent labs reviewed.
Micro Results:
12/14/23 20:41 Wound Culture - Final
Foot - Right No growth
Gram Stain - Final
12/14/23 20:41 Anaerobic Culture - Final
Foot - Right Bacteroides thetaiotaomicrom
12/07/23 16:14 Wound Culture - Final
Foot - Right S aureus-Methicillin Sensitive
Streptococcus agalactiae
Gram Stain - Final
12/07/23 16:14 Anaerobic Culture - Final
Foot - Right
12/06/23 03:26 Blood Culture - Final
Blood/Venous No Growth - Final Report
12/06/23 00:51 Blood Culture - Final
Blood/Venous No Growth - Final Report
12/06/23 22:32 MRSA Screen - Final
Nose No Methicillin Resistant Staphylococcus aureus isolated.
Imaging:
12/14/2023 MRI RLE: 1. PROBABLE ACUTE OSTEOMYELITIS in the right 5th metatarsal head and proximal phalanx of the 4th toe. 2. Large 5.0 cm region of nonenhancing soft tissue necrosis in the lateral right forefoot. 3. No MRI evidence for
rim-enhancing enhancing fluid collection to suggest an abscess. 4. Recent amputation of the 5th toe. 5. Severe acute myositis or muscle denervation throughout the right foot. 6. Severe diffuse cellulitis.
--- NOTE | 2023-12-21 14:51 | W.PN.UPDATE ---
Update Note
Progress Note Update
Chart Reviewed
No significant Changes
Patient in the OR at the time of rounds
Continue current antibiotics
Will reassess tomorrow
--- NOTE | 2023-12-21 15:39 | CM ---
Patient off the floor for Tunnelled HD catheter.
Scheduled for arteriogram today.
CM will continue to follow for d/c needs.
New HD patient.
Plan: TBD.
--- NOTE | 2023-12-21 16:07 | W.IMMPOSTOP ---
Surgical Immed Post Op Note
-
Primary Surgeon: Dr. Memo Whitmore III, MD
Assisting Surgeon: Dr. Merrill Ruth MD, PhD (PGY-1)
Pre-op Diagnosis: Critical limb threatening ischemia of right lower extremity
Post-op Diagnosis: Critical limb threatening ischemia of right lower extremity
Procedure Performed: Diagnostic arteriogram, intravascular lithotripsy of the posterior tibial artery and proximal SFA, balloon angioplasty and nitroglycerin injection of posterior tibial artery
Anesthesia Type: MAC
Specimen / Cultures: None
Estimated Blood Loss: Minimal
Complications: None
Operative Findings: The patient was brought to the OR and placed in the supine position. After induction with anesthesia, the groins were prepped and draped bilaterally in usual sterile fashion. C arm was used to identify the superior and inferior
margins of the femoral head and this was marked at the skin level. Ultrasound guidance was used to identify the left PC TECHNICIAN. Topical anesthetic was injected into the track. Micropuncture kit was used to access the left PC TECHNICIAN and this was upsized to a
6-angolan sheath. A carolina's hook catheter and glidewire were advanced into the distal abdominal aorta. Diagnostic arteriogram showed patent aorto-iliac bifurcation and proximal iliofemoral system. The right iliofemoral system was selected and
diagnostic arteriogram showed proximal SFA stenosis and a diffusely stenotic/diseased posterior tibial artery. There was good patency and caliber of the AT and peroneal arteries. A 0.014 wire was advanced into the posterior tibial artery and
intravascular lithotripsy was performed along the posterior tibial artery. Then an additional balloon angioplasty was performed at the distal posterior tibial artery as well as nitroglycerin. Intravascular lithotripsy was then performed at an area
of proximal SFA stenosis. At the conclusion of the case, there were dopplerable DP and PT signals on both feet. The wire and sheath were removed and manual occlusive pressure was held over the left groin until hemostasis was achieved. The patient
was transported to the PACU in stable condition.
[2023-12-21 16:54] LABS: Glucose - Point of Care 98 mg/dl (70-99)
--- NOTE | 2023-12-21 17:58 | OR.RPT ---
Operative Report
Operative Report
Date of Operation: 12/21/2023
Pre Op Diagnosis: Critical limb threatening ischemia, right lower extremity
Post Op Diagnosis: Critical limb threatening ischemia, right lower extremity
Procedure:
1.) Intravascular lithotripsy to diffuse right posterior tibial artery stenosis (3 mm x 80 mm E8 shockwave balloon)
2.) Intravascular lithotripsy to right above-knee popliteal artery stenosis (6 mm x 60 mm M5+ shockwave balloon)
3.) Intravascular lithotripsy to right proximal superficial femoral artery stenosis (6 mm x 60 mm M5+ shockwave balloon)
4.) Diagnostic aortobiiliac arteriogram (CO2)
5.) Diagnostic right lower extremity arteriogram (CO2 plus 1/4 strength contrast)
6.) Ultrasound-guided percutaneous access to the left common femoral artery
Surgeon: Memo Whitmore III, MD
[employer] Developer: Merrill Ruth MD PhD, PGY1
Anesthesia: Sedation with local
Fluoroscopy:
32.4 min
135 mGy
26.97 Gy.cm2
Complications: None
Estimated Blood Loss: Minimal
History and Indications for Procedure: 48-year-old female with poorly controlled diabetes and renal failure presents with critical limb threatening ischemia to her right lower extremity manifested by nonhealing wound on her right foot with
associated severe soft tissue infection. We took her to the operating room for limb preservation efforts.
Procedure in Detail: Shea Kent was correctly identified and placed supine on the operating table. After adequate induction of anesthesia the bilateral groins were prepped and draped in the usual sterile fashion. A timeout was performed
with the nursing and anesthesia staff confirming the patient's identity as well as the nature and laterality of the procedure.
The left common femoral artery was identified under ultrasound guidance. The artery was patent. The superior and inferior aspects of the femoral head were identified with radiographic guidance and marked at the skin level. The proposed puncture site
was infiltrated with local anesthesia. We saved a copy of the ultrasound image to the medical record. Under ultrasound guidance we accessed the left common femoral artery with a micropuncture needle and upsized to a 5 Fr sheath over a Preventiceson wire.
The wire and a ShepherPoint2 Property Manager hook flush catheter were advanced into the distal abdominal aorta and a diagnostic aorto-biiliac arteriogram was performed with CO2:
AORTO-ILIAC ARTERIOGRAM:
Aorta: Patent with no stenosis identified
Right common iliac artery: Patent with no stenosis identified
Right external iliac artery: Patent with no stenosis identified
Left common iliac artery: Patent with no stenosis identified
Left external iliac artery: Patent with no stenosis identified
Under roadmap guidance using a Glidewire and the Shepherds hook catheter we selected the right common iliac artery and then the external iliac artery. A catheter was tracked up and over the aortic bifurcation and placed in the distal external iliac
artery. A diagnostic right lower extremity arteriogram was then performed with a combination of CO2 and 1/4 strength contrast which demonstrated the following:
RIGHT LOWER EXTREMITY:
Common femoral artery: Patent with no stenosis identified
Profunda femoral artery: Patent with no stenosis identified
Superficial femoral artery: Moderate to high-grade stenosis near the origin. Diffusely calcified. Mid and distal segments patent.
Popliteal artery: Moderate to high-grade stenosis involving the above-knee popliteal artery. Calcified. Smooth focal stenosis of the popliteal artery behind the knee, mild to moderate. Below-knee popliteal artery patent with no significant
stenosis identified
Anterior tibial artery: Patent with no stenosis identified. Continues across the ankle to form the dorsalis pedis artery.
Tibioperoneal trunk: Patent with no stenosis identified
Peroneal artery: Patent to the ankle with no stenosis identified
Posterior tibial artery: Diffuse high-grade stenosis throughout the entire length of the posterior tibial artery. Calcification identified. Significant small vessel disease identified in the plantar distribution of the foot.
ENDOVASCULAR INTERVENTION: Systemic heparin was administered. Selected the superficial femoral artery with the carolina's hook catheter and Glidewire. Exchanged out for a 5 Fr 70 cm sheath over a Storq wire. Selected the posterior tibial artery
under roadmap guidance with Quickcross catheter and glidewire. The wire and catheter were advanced into the posterior tibial artery and subtraction angio confirmed proper position in the true lumen. Exchanged out for a 0.014 wire. Due to the
diffuse calcification of the posterior tibial artery and in an effort to modify the calcium to achieve maximum luminal gain with endovascular intervention I elected to proceed with intravascular lithotripsy. A 3 mm x 80 mm E8 shockwave balloon was
positioned in the distal aspect of the posterior tibial artery under roadmap guidance. Alternating rounds of lithotripsy pulse delivery at sub-nominal pressure and angioplasty at nominal pressure was performed across the entire length of posterior
tibial artery. In between rounds of pulse delivery and angioplasty the balloon was deflated and repositioned under roadmap guidance. All 400 pulses were delivered. Subsequent arteriogram demonstrated a nice result in the proximal and mid segments
of the posterior tibial artery which was now widely patent. Posterior to the medial malleolus a stenotic segment of the distal posterior tibial artery remained. A 2 mm x 80 mm angioplasty balloon was then brought into position under roadmap
guidance. This arterial segment was treated with balloon angioplasty and a prolonged 3-minute inflation time. The balloon was then deflated and removed over the wire. Subsequent arteriogram demonstrated a nice result with a patent posterior
tibial artery, improved from pretreatment, and no significant residual stenosis in the treated segments. Once again identified was significant small vessel disease in the plantar distribution of the foot which did limit flow through the posterior
tibial artery. Nitroglycerin was locally injected into the distal posterior tibial artery in an effort to combat any small vessel spasm.
We then focused our attention on the above-knee popliteal artery and proximal superficial femoral artery disease. Due to the calcified nature of the arterial disease and in an effort to modify the calcium to achieve maximum luminal gain with
endovascular intervention I elected to proceed with intravascular lithotripsy. A 6 mm x 60 mm M5+ Shockwave balloon was placed across the above-knee popliteal artery stenosis under roadmap guidance. Alternating rounds of lithotripsy pulse delivery
at sub-nominal pressure and angioplasty at nominal pressure was performed across this stenosis. In between rounds of pulse delivery and angioplasty the balloon was deflated and repositioned under roadmap guidance. 150 pulses were delivered at this
location. The balloon was then deflated and repositioned across the proximal superficial femoral artery stenosis. Once again alternating rounds of lithotripsy pulse delivery at sub-nominal pressure and angioplasty at nominal pressure was performed
across the proximal superficial femoral artery stenosis. In between rounds of pulse delivery and angioplasty the balloon was deflated and repositioned slightly under roadmap guidance. The remaining 150 pulses were delivered at this location. All
300 pulses were delivered.
COMPLETION ARTERIOGRAM: Good technical result. Mild residual stenosis at the proximal superficial femoral artery near the origin. Brisk flow through the superficial femoral and popliteal arteries. A focal dissection was identified in the
above-knee popliteal artery but this was not flow-limiting and no significant residual stenosis was identified. There was brisk flow through the popliteal artery. Flow was identified in all 3 tibial arteries. Significant small vessel disease
again identified in the plantar distribution of the foot.
Satisfied with this result we concluded the procedure. The sheath tip was pulled back into the left external iliac artery. Protamine was administered. The sheath was pulled and direct manual pressure was held over the puncture site. Hemostasis
was achieved. A sterile dressing was applied..
The patient tolerated the procedure well and was taken to the recovery area in stable condition.
Attestation: I was present and responsible for the entire procedure.
Signed:
Memo Whitmore III, MD
[facility]
[phone] (hhzi)
[2023-12-21 18:09] LABS: Glucose - Point of Care 83 mg/dl (70-99)
--- NOTE | 2023-12-21 18:15 | PTCARENOTE ---
Patient received in to 420. L groin site intact, without drainage. Neurovascular checks appropriate. Patient AAOx3.
[2023-12-21] MEDS: LIPITOR 80 MG PO (18:35)
[2023-12-21] MEDS: NOVOLOG FLEXPEN 3 UNITS SC (20:56)
[2023-12-21 22:10] LABS: Glucose - Point of Care 124 mg/dl (70-99)
[2023-12-21] MEDS: TOPROL XL 25 MG PO (22:25)
[2023-12-21] MEDS: LANTUS 0.0200000000000000004 UNITS SC (22:25)
[2023-12-21] MEDS: TYLENOL 1000 MG PO (22:28)
[2023-12-22] VITALS (11 sets, daily range): BP systolic 81–165; BP diastolic 51–74; PULSE 83; O2SAT 99; BMI 28.5
[2023-12-22] MEDS: ZOSYN 50 IV ×3 (00:51→18:46)
[2023-12-22] MEDS: TYLENOL PO ×3 (03:15→20:11)
[2023-12-22 06:56] LABS: Glucose - Point of Care 112 mg/dl (70-99)
--- NOTE | 2023-12-22 08:06 | PN.DE.MGMTRT ---
Insulin Management
- -
12/22/2023: Diabetes Management Follow up:
Patient admitted with Right fifth toe discoloration, open wound.
PMH: CAD(CABG 1981), CKD, CVA x2, HTN, Retinopathy, CHF and T2DM. A1C 9.2%, Cr 3.0 eGFR 18.59, was taking Lantus 18-20 units @ HS and Lispro 4 units AC. Patient states she was diagnosed with diabetes at age 12 and started insulin at age 13. She
states her A1C is greatly improved. She has a glucose monitor and tests daily.
Patient is awake, alert and oriented, sitting on side of bed, able to discuss diabetes management.
POD # 15 s/p Right 5th toe amputation, POD #8 s/p tissue debridement R foot and amputation 4th toe. Cr 4.2, eGFR 12.42 today.
12/20 Glucose 112 fasting, glucose in range without insulin as patient was NPO for procedure yesterday. Fasting glucose this AM 112
Will continue 2 unit Lantus @ HS, with novolog 3 units AC. Discussed with patient the importance of quality nutrition and importance of eating meals and protein to assist healing. She verbalized understanding.
Discussed with nurse. Will cont to follow. Closely monitor and adjust insulin dose if necessary
Diabetes History
- -
Type of Diabetes: 2 requiring insulin
Pre-Admission Diabetes Regimen
12/21/23
07:08
Creatinine 4.2 H*
Lab Results
Hemoglobin A1c 9.2 % (4.0-5.6) H 12/06/23 08:12
Insulin Pump Settings
IP Diabetes Regimen
12/21/23 12/21/23 12/21/23
07:08 12:19 16:52
Glucose 129 H
POC Glucose 94 98
12/21/23 12/21/23 12/22/23
18:08 22:07 06:54
Glucose
POC Glucose 83 124 H 112 H
Meal type: Breakfast
Patient Education
[2023-12-22 08:23] LABS: Hematocrit 25.3 % (37.0-47.0); Mean Corp Hgb Conc. 31.6 g/dL (33.0-37.0); Mean Corpuscular Hgb 25.6 pg (27.0-31.0); Mean Corpuscular Volume 81.1 fL (81.0-99.0); Mean Platelet Volume 9.5 fL (7.4-10.4); Platelet Count 334 10^3/uL (130-400); Red Blood Cell Count 3.12 10^6/uL (4.20-5.40); Red Cell Dist. Width 24.8 % (11.5-14.5); White Blood Cell Count 16.5 10^3/uL (4.8-10.8)
[2023-12-22 08:32] LABS: INR 1.15; PT 14.6 Sec (11.4-14.6)
[2023-12-22 08:33] LABS: APTT 45.2 Sec (23.4-35.0)
--- NOTE | 2023-12-22 08:40 | W.PN.VS ---
Addendum entered and electronically signed by Memo Whitmore III, MD 12/22/23 10:09:
This patient was seen and examined with NILDA Albright and NILDA Willett. I agree with the history and physical exam as well as the assessment and plan. I have the following additions:
Good quality Doppler signals at the right posterior tibial artery and dorsalis pedis artery
Left groin site is soft with no hematoma
I had a long discussion with Shea this morning about the outcome of her endovascular intervention and the next steps regarding her foot wound. I discussed the case at length with Dr. Casey. She has extensive small vessel disease in the
plantar distribution. She may be best served with a transmetatarsal amputation at this point given the appearance of her right foot wound. Dr. Casey will discuss this further with her today.
Dual antiplatelet therapy. Aggressive control of arterial disease risk factors
Call with questions or concerns
Signed:
Memo Whitmore III, MD
[facility]
[phone] (xilq)
Original Note:
Today's Communication / Plan
-
Seen and assessed with Dr Whitmore
Assessment/Plan
-
POD 1 Intravascular lithotripsy to diffuse right posterior tibial artery stenosis (3 mm x 80 mm E8 shockwave balloon)
Intravascular lithotripsy to right above-knee popliteal artery stenosis (6 mm x 60 mm M5+ shockwave balloon)
Intravascular lithotripsy to right proximal superficial femoral artery stenosis (6 mm x 60 mm M5+ shockwave balloon)
Diagnostic aortobiiliac arteriogram (CO2)
Diagnostic right lower extremity arteriogram (CO2 plus 1/4 strength contrast)
Plan:
-Groin site stable
-Amputation per podiatry
-Follow up in our office as sscheduled
Subjective Data
-
Date of Service: December 22, 2023
Pt seen at bedside this am with Dr Whitmore. Pt offers no complaints at this time. No events overnight. Groin site stable
Objective Data
-
Vital Signs
Temp Pulse Resp BP Pulse Ox
98.8 F 80 17 150/65 96
12/22/23 07:36 12/22/23 07:36 12/22/23 07:36 12/22/23 07:36 12/22/23 07:36
Intake and Output
12/21/23 12/22/23 12/23/23
06:59 06:59 06:59
Intake Total 720 / 720 110 / 110
Output Total 0 / 0 0 / 0
Balance 720 / 720 110 / 110
Intake:
Oral fluids 720 / 720 60 / 60
IV fluids (Total) 0 / 0
Normosol 0 / 0
nss 0 / 0
IV piggybacks 50 / 50
Output:
Urine, Voided 0 / 0 0 / 0
Other:
Number of approximated MODERATE 2
amounts of urine
Lab Results
12/22/23 07:40
Calcium 9.1 mg/dl (8.4-10.2) 12/21/23 07:08
Magnesium 2.0 mg/dl (1.6-2.3) 12/14/23 08:46
Total Bilirubin 0.9 mg/dl (0.2-1.3) 12/18/23 07:45
AST 110 U/L (14-36) H 12/18/23 07:45
ALT 19 U/L (0-35) 12/18/23 07:45
Alkaline Phosphatase 725 U/L (38-126) H 12/18/23 07:45
Total Protein 6.6 g/dl (6.3-8.2) 12/18/23 07:45
Albumin 2.8 g/dl (3.5-5.0) L 12/18/23 07:45
Physical Exam
-
AAOx3
No tachypnea
Abd soft
Groin site c/d/i, no hematoma or drainage
R foot warm, wrapped, doppler signals present
[2023-12-22 09:08] LABS: Blood Urea Nitrogen 20 mg/dl (7-17); Calcium 8.5 mg/dl (8.4-10.2); Carbon Dioxide 21 mmol/L (22-30); Chloride 99 mmol/L (98-107); Estimated Creatinine Clearance 19 ml/min; Glucose 106 mg/dl (70-99); Potassium 3.9 mmol/L (3.5-5.1); Sodium 134 mmol/L (135-145); eGFR 15.45
[2023-12-22] MEDS: NOVOLOG FLEXPEN-LOW RESISTANCE SC ×3 (09:23→18:10)
[2023-12-22] MEDS: NOVOLOG FLEXPEN SC ×2 (09:23→12:41)
[2023-12-22] MEDS: COLACE PO ×2 (09:31→20:10)
[2023-12-22] MEDS: HEPARIN 5000 UNITS SC (09:32)
[2023-12-22] MEDS: ASPIR LOW (ENTERIC COATED) 81 MG PO (09:32)
--- NOTE | 2023-12-22 10:47 | W.PN.ID1 ---
Date of Service
Date of Service: December 22, 2023
Today's Communication
continue zosyn - will reassess tomorrow
PRN imodium
Assessment / Plan
Diabetic Foot Infection
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
- revision with 4th toe amp (12/14/23)
PAD
- lithotripsy/angiography 12/20
DM1 - uncontrolled (HbA1c = 9.2 [12/06/23] )
CKD4
- now on HD
Congenital Heart disease
/AR
Pulm HTN
Hx Guillain Steuben syndrome, with chronic LLE weakness
Recommendations:
chart reviewed however, patient again in the OR. nonbillable note
Diarrhea - agree likely antibiotic associate diarrhea
- C diff negative
- limited value to stool cultures in my opinion
- most likely antibiotic associated diarrhea
- pending reevaluation of foot post operatively, continue antibiotics
- trial of PRN Imodium
Blood cultures without growth.
MRI previously revealed presence of suspected osteomyelitis of the fifth met head and proximal phalanx of the fourth toe.
Patient is S/P revision surgery 12/14/23.
Continue Zosyn.
Note Consideration of TMA of the right foot
����������������������������������������������������������
Chief Complaint
-: Leukocytosis and Other (Right foot diabetic foot infection)
Subjective / Review of Systems
afebrile
bp stable
declining leukocytosis
K 3.9
s/p angiogram, lithotripsy yesterday; vascular surgery recommending TMA of the right foot
note
Objective Data
Lab Data
Lab Results
12/22/23 07:40
12/22/23 07:40
ESR 105 mm/hour (0-20) H 12/06/23 00:52
PT 14.6 Sec (11.4-14.6) 12/22/23 07:40
INR 1.15 12/22/23 07:40
APTT 45.2 Sec (23.4-35.0) H 12/22/23 07:40
Estimated Creat Clear 19 ml/min 12/22/23 07:40
Lactic Acid 1.2 mmol/L (0.7-2.0) 12/06/23 00:52
Total Bilirubin 0.9 mg/dl (0.2-1.3) 12/18/23 07:45
AST 110 U/L (14-36) H 12/18/23 07:45
ALT 19 U/L (0-35) 12/18/23 07:45
Alkaline Phosphatase 725 U/L (38-126) H 12/18/23 07:45
C-Reactive Protein 223.70 mg/L (0.0-10.00) H 12/06/23 00:52
Most recent labs reviewed.
Micro Results:
12/14/23 20:41 Wound Culture - Final
Foot - Right No growth
Gram Stain - Final
12/14/23 20:41 Anaerobic Culture - Final
Foot - Right Bacteroides thetaiotaomicrom
12/07/23 16:14 Wound Culture - Final
Foot - Right S aureus-Methicillin Sensitive
Streptococcus agalactiae
Gram Stain - Final
12/07/23 16:14 Anaerobic Culture - Final
Foot - Right
12/06/23 03:26 Blood Culture - Final
Blood/Venous No Growth - Final Report
12/06/23 00:51 Blood Culture - Final
Blood/Venous No Growth - Final Report
12/06/23 22:32 MRSA Screen - Final
Nose No Methicillin Resistant Staphylococcus aureus isolated.
[2023-12-22 11:16] LABS: Glucose - Point of Care 125 mg/dl (70-99)
--- NOTE | 2023-12-22 13:38 | W.PN.NEPH.PH ---
Today's Communication / Plan
-
- TDC placement today
- For HD tomorrow
Assessment/Plan
-
IMP:
Diabetic Foot Infection Right Foot, right 5th toe amputation
Sepsis secondary to the above
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
MARYLOU with CKD stage 4
hyponatremia
Acute on chr anemia
A gap met acidosis
ASCVD
Multiple prior CVAs. LINQ recorder recommended; however, patient declined.
Chronic HFpEF
Congenital heart surgery as a child, no records available
Moderate , AR, mild to mod MS
Guillain Spearfish syndrome, with chronic LLE weakness
Plan:
Dialysis tomorrow, orders provide
No recovery noted, plan for TDC
Will continue to reduce dry weight in setting of hypertension on dialysis
per vascular, she most likely will need transmetatarsal amputation of R foot
-
-
Date of Service: December 22, 2023
CC / HPI / ROS
-
Chief Complaint:
MARYLOU with CKD
History of Present Illness:
Initaited on HD, doing well. plan for TDC placement
Na improved to 132 following dialysis
s/p RHC 6/5. PCWP 47
ANDRA therapy directed for anemia
Has been on Zosyn for right lower extremity wound
Review of Systems:
no cp or sob
still with edema
Labs
-
Labs:
WBC 16.5 10^3/uL (4.8-10.8) H 12/22/23 07:40
RBC 3.12 10^6/uL (4.20-5.40) L 12/22/23 07:40
Hgb 8.0 g/dL (12.0-16.0) L 12/22/23 07:40
Hct 25.3 % (37.0-47.0) L 12/22/23 07:40
Plt Count 334 10^3/uL (130-400) 12/22/23 07:40
Sodium 134 mmol/L (135-145) L 12/22/23 07:40
Potassium 3.9 mmol/L (3.5-5.1) 12/22/23 07:40
Chloride 99 mmol/L (98-107) 12/22/23 07:40
Carbon Dioxide 21 mmol/L (22-30) L 12/22/23 07:40
BUN 20 mg/dl (7-17) H 12/22/23 07:40
Creatinine 3.5 mg/dL (0.6-1.0) H 12/22/23 07:40
eGFR 15.45 12/22/23 07:40
Glucose 106 mg/dl (70-99) H 12/22/23 07:40
Calcium 8.5 mg/dl (8.4-10.2) 12/22/23 07:40
Lnr-J-Mlebnboeytl Pept 15460 pg/ml 12/08/23 08:30
Albumin 2.8 g/dl (3.5-5.0) L 12/18/23 07:45
Physical Exam
-
Vital Signs:
Vital Signs
Temp Pulse Resp BP Pulse Ox
97.9 F 85 17 154/70 99
12/22/23 11:24 12/22/23 11:24 12/22/23 11:24 12/22/23 11:24 12/22/23 11:24
Cardiovascular:: Regular rate and rhythm
Respiratory:: Bilateral: Coarse
Lung Excursion:: Normal
Abdomen:: Nontender and Soft
Bowel Sounds:: Normal
Extremity Edema:: +1: Bilateral:
Whitmore Catheter: No
--- NOTE | 2023-12-22 13:46 | CON.GI ---
Addendum entered and electronically signed by NILDA Beckwith 12/22/23 17:30:
reviewed with nursing staff pt declines the low lactose recommendation
Addendum entered and electronically signed by Aristides Mcgovern MD 12/22/23 15:52:
I saw and examined the patient.
The FURNACE INSTALLER HELPER or PA's note was reviewed and I agree with the note.
Comment: 48 yo F complicated history as below, GI being consulted for diarrhea started with Zosyn. Diarrhea occurs 11% patients with diarrhea.
We discussed with ID.
Seems to be associated with antibiotics started after she was in hospital for a few days, only occurs after antibiotics.
Will do a one time dose of imodium d/w ID they are agreeable with this.
Follow up stool studies.
Original Note:
Consultation
-
Date/Time Consultation Requested: 12/22/23 1330
Date/Time Consultation Performed: 12/22/23 1345
Requesting Provider: Keo Castillo MD
Performing Provider: NILDA Artis, Latoya Mcgovern MD
Reason for Consultation: diarrhea
Medical History
Chief Complaint / HPI
Chief Complaint: diarrhea
History of Present Illness:
Pt is a 48yo with hx NIDDM with neuropathy, nephropathy and retinopathy with new HD this admission, valvular disease, CHF, CVA, ASCVD, Guillain-barre syndrome, visual impairment, congenital heart disease, CAD with prolonged admission with PAD with
diabetic foot ulcer s/p toe amp and debridement 12/13 and intravascular lithotripsy for critical limb ischemia on 12/20. She related onset of diarrhea with ongoing antibiotic therapy. c-diff 12/21 was negative. No hx colonoscopy in past and no
issues with diarrhea prior to admission. c-diff neg 12/21 with other cx pending.
She otherwise denies dysphagia, GERD, nausea, vomiting, abdominal pain, constipation or bleeding. Pt also noted with anemia with microcytosis and acute on chronic CKD with creat up to 4.8 during admission with new HD.
Past Medical History
Past Medical History: CHF, CVA, NIDDM (with retinopathy, nephropathy, and neuropathy), Valvular Disease (mod /AR, mild to mod MS) and Other (ASCVD, guiliian-barre syndrome, visual impairment, congenital heart disease, PAD)
Past Surgical History: None, Tonsilectomy and Other (toe ampulation /debridment 12/13)
Social History
Tobacco: Non-Smoker
Alcohol: None
Drug: None
Living: With Family
Family History
Family History: Other (no family hx colon Ca or polyps)
Allergies / Home Medications
Allergy/AdvReac Type Severity Reaction Status Date / Time
latex Allergy Hives Verified 09/01/23 19:15
soap Allergy Rash Verified 09/01/23 19:15
�Medication �Instructions �Recorded
insulin glargine 100 unit/mL 18 - 20 unit SC HS Diabetes 04/06/23
subcutaneous solution (Lantus
U-100 Insulin)
insulin lispro 100 unit/mL 4 unit SC AC Diabetes 04/06/23
subcutaneous pen
omega [id number] oil 900 1 cap PO DAILY Supplement 04/06/23
mg-1,400 mg capsule,delayed release
aspirin 81 mg tablet,delayed 81 mg PO DAILY Blood Clot 05/04/23
release Prevention/Tx #30 tabs
atorvastatin 80 mg tablet 80 mg PO QPM #30 tabs 05/04/23
furosemide 40 mg tablet 40 mg PO DAILY PRN Weight gain, 12/07/23
edema
Review of Systems
-
History Source: Patient
Constitutional: Reports No Symptoms
EENT: Reports No Symptoms
Respiratory: Reports No Symptoms
Cardiac: Reports No Symptoms
Abdomen/GI: Reports Diarrhea
: Reports No Symptoms
Musculoskeletal: Reports Other (foot pain with recent surgery )
Skin: Reports No Symptoms
Neurological: Reports Weakness
Endocrine: Reports No Symptoms
Hematologic/Lymphatic: Reports No Symptoms
Vital Signs
Temp Pulse Resp BP Pulse Ox
97.9 F 85 17 154/70 99
12/22/23 11:24 12/22/23 11:24 12/22/23 11:24 12/22/23 11:24 12/22/23 11:24
Physical Exam
Exam
General: Well Developed, Well Nourished and No Apparent Distress
HEENT: Normocephalic and Anicteric
Respiratory: Clear
Cardiac: Regular Rhythm
GI: Soft, Non Tender and Non Distended
Rectal: Other (pt declined)
Musculoskeletal: No Clubbing and No Cyanosis
Skin: Warm, Dry and Other (right foot with dressing intact )
Neuro: Awake, Alert and AO x 3
Psych: Calm
Results
WBC 16.5 10^3/uL (4.8-10.8) H 12/22/23 07:40
Hgb 8.0 g/dL (12.0-16.0) L 12/22/23 07:40
Hct 25.3 % (37.0-47.0) L 12/22/23 07:40
MCV 81.1 fL (81.0-99.0) 12/22/23 07:40
Plt Count 334 10^3/uL (130-400) 12/22/23 07:40
Absolute Neuts (auto) 23.9 10^3/uL (1.4-6.5) H 12/18/23 07:45
PT 14.6 Sec (11.4-14.6) 12/22/23 07:40
INR 1.15 12/22/23 07:40
APTT 45.2 Sec (23.4-35.0) H 12/22/23 07:40
Sodium 134 mmol/L (135-145) L 12/22/23 07:40
Potassium 3.9 mmol/L (3.5-5.1) 12/22/23 07:40
Chloride 99 mmol/L (98-107) 12/22/23 07:40
Carbon Dioxide 21 mmol/L (22-30) L 12/22/23 07:40
BUN 20 mg/dl (7-17) H 12/22/23 07:40
Creatinine 3.5 mg/dL (0.6-1.0) H 12/22/23 07:40
Calcium 8.5 mg/dl (8.4-10.2) 12/22/23 07:40
Total Bilirubin 0.9 mg/dl (0.2-1.3) 12/18/23 07:45
AST 110 U/L (14-36) H 12/18/23 07:45
ALT 19 U/L (0-35) 12/18/23 07:45
Alkaline Phosphatase 725 U/L (38-126) H 12/18/23 07:45
Hep Bs Antibody Positive 12/17/23 15:50
Hep B Core Total Ab Negative (Negative) 12/17/23 15:50
Hepatitis C Antibody Negative (Negative) 12/17/23 15:50
Diagnostic Image Results:
Prior GI Procedures:
EGD: none
Colonoscopy: none
Assessment / Plan
-
Pt is a 48yo with hx NIDDM with neuropathy, nephropathy and retinopathy with new HD this admission, valvular disease, CHF, CVA, ASCVD, Guillain-barre syndrome, visual impairment, congenital heart disease, CAD with prolonged admission with PAD with
diabetic foot ulcer s/p toe amp and debridement 12/13 and intravascular lithotripsy for critical limb ischemia on 12/20. She related onset of diarrhea with ongoing antibiotic therapy. c-diff 12/21 was negative. No hx colonoscopy in past and no
issues with diarrhea prior to admission. c-diff neg 12/21 with other cx pending. Pt also noted with anemia with microcytosis and acute on chronic CKD with creat up to 4.8 during admission with new HD.
-diarrhea
-PAD with diabetic foot ulcer with amp/debridement and intravascular lithotripsy with critical limb ischemia
-NIDDM
-acute on chronic CKD with HD
microcytic anemia
other medical problems:
-CVA
-CAD
-guillain barre
PLAN:
etiology of diarrhea with concern for antibiotic related diarrhea
reviewed with ID to eval need for continued therapy
ok for 1 time dose of Imodium as c-diff neg
cont probiotics
await stool culture
add low lactose and low residue to diet restriction to limit volume
consider eventual OP colonoscopy with anemia and no prior screening
-
-
Thank you for consultation and allowing me to participate in the patient's care. Please call the motion picture photographer GI physician during the after hours with any questions or concerns.
[2023-12-22] MEDS: VISBIOME 1 CAP PO (13:55)
--- NOTE | 2023-12-22 14:40 | W.PN.HOSP.TC ---
Today's Communication/Plan
-
Started Plavix in addition to Aspirin
Diarrhea -- ordered stool studies and probiotics, GI consulted
Continue antibiotics
Assessment / Plan
Assessment / Plan
Physical Exam
General: Comfortable; Negative Obese
HEENT: Negative Oxygen
Respiratory: Clear to Auscultation
Cardiac: Regular Rhythm and S1/S2; Negative Murmur
GI: Soft, Nontender and Nondistended
Musculoskeletal: Other (Right lower extremity dressing in place )
Neuro: Awake, Alert, Oriented and No Motor Deficits
Psych: Calm
Lower right foot MRI 12/06
1. 2.5 cm ABSCESS dorsal to the right 5th MTP joint.
2. SOFT TISSUE EMPHYSEMA tracking around the proximal phalanx of the right 5th toe.
3. SEVERE CELLULITIS throughout the right forefoot.
4. No MRI evidence for acute osteomyelitis.
5. Diffuse signal abnormality throughout the muscles of the right foot (either severe diffuse myositis or acute on chronic muscle denervation secondary to diabetes mellitus).
Lower right foot MRI 12/13
1. PROBABLE ACUTE OSTEOMYELITIS in the right 5th metatarsal head and proximal phalanx of the 4th toe.
2. Large 5.0 cm region of nonenhancing soft tissue necrosis in the lateral right forefoot.
3. No MRI evidence for rim-enhancing enhancing fluid collection to suggest an abscess.
4. Recent amputation of the 5th toe.
5. Severe acute myositis or muscle denervation throughout the right foot.
6. Severe diffuse cellulitis.
US abd
IMPRESSION:
1. Right lower extremity: IVANIA 1.08 within normal limits. TBI mildly reduced 0.60. Eccentric wall calcification noted in vessels. Proximal superficial femoral artery velocity elevation of 357 cm/s with velocity ratio of 2.22 consistent with at least
50-74% stenosis. Monophasic waveforms noted distal to the stenosis.
2. Left lower extremity: IVANIA 1.31 within normal limits. TBI minimally reduced 0.67. Eccentric wall calcification noted in vessels. Multiphasic waveforms throughout lower extremity arteries with distal superficial femoral artery velocity elevation
245 cm/s and velocity ratio of 2.13 consistent with likely 50-74% stenosis. Multiphasic waveforms are maintained distal to the stenosis. Continuous Doppler waverforms at the dorsalis pedis and posterior tibial arteries also remain multiphasic.

1. Right Diabetic foot infection
s/p 5th toe amputation POD #4 status post diagnostic arteriogram, intravascular lithotripsy of the posterior tibial artery and proximal SFA, balloon angioplasty and nitroglycerin injection of posterior tibial artery on 12/21/23
Right foot cellulitis
-Patient presented for initial right foot fifth dual infection/cellulitis
-MRI of the foot showing soft tissue emphysema/cellulitis and abscess of MTP joint of fifth toe
-Underwent fifth toe amputation by podiatry, patient is postop day 4
-Intraoperative culture growing MSSA/Streptococcus agalactia. Intraoperative bone margin pathology is negative for any osteomyelitis
-Patient started to having new worsening leukocytosis and a repeat MRI on 12/13 showing large soft tissue necrosis area
-Patient underwent debridement of right foot on 12/13 evening by podiatry, repeat wound culture growing bacteriods.
-Antibiotic escalated to Zosyn again from [facility]
-Patient at high risk of limb loss with poor vasculature, which is difficult in turn to be intervened upon due to ongoing renal failure/contrast exposure risk.
-Started patient on Plavix on 12/22/23 in addition to Aspirin, as recommended by vascular surgery
-As per vascular surgery, patient has extensive small vessel disease in the plantar distribution and may be best served with a transmetatarsal amputation at this point given the appearance of her right foot wound - podiatry will discuss this further
with the patient.
2. MARYLOU with CKD stage IV
AGAP metabolic acidosis -resolved
Proteinuria
-cr improved to 1.8 with Bumex drip, but then trended up again
-Urine protein/cr ratio of 0.6
-Continue dialysis as per nephrology
-RHC on 12/08 showing PCWP of 47mmHg and was started on Bumex drip, renal function did improve but declined again later .
-Patient started on hemodialysis on 12/16 and able to tolerate without issues
-Likely will need tunneled dialysis catheter
3. PAD
-Significant arterial disease with possible suggestive of bilateral proximal superficial femoral artery stenosis of 50 to 74%
-Vascular surgery involved in care and patient currently not a candidate for angiography due to renal failure
-Status post diagnostic arteriogram, intravascular lithotripsy of the posterior tibial artery and proximal SFA, balloon angioplasty and nitroglycerin injection of posterior tibial artery on 12/21/23
-Continue DAPT and aggressive control of arterial disease risk factors
4. Acute on chronic diastolic congestive heart failure
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
-Patient weight down trended with Bumex drip, some repeat upward trend on weight
-Currently diuretics being held with worsening renal failure
-Cardiology following and help appreciated
5. Diabetes mellitus
Hypoglycemia
-presumed Type I as diagnosed age 12.
-Diabetes ROLL SLICING MACHINE TENDER consulted, recommendations appreciated
-Insulin being adjusted as appropriate
6. Iron def anemia
Acute blood loss anemia from post op
-Ferritin of 74.6 with saturation of 12% and acute phase suggestive of iron deficiency anemia
-Got 7 doses of IV Ferrlecit.
-Patient has significant blood loss from surgical site debridement required multiple dressing and localized thrombin rx
-Required total 3 U prbc thic visit
7. h/o of CVA
Legally blind in right eye
- Multiple prior CVAs. LINQ recorder recommended; however, patient declined.
- Continue daily ASA. Will hold Plavix acutely in the event that surgical intervention is needed.
8. pSVT
-Continue metoprolol succinate qhs 25 mg
9. Diarrhea
-Stool studies ordered
-Probiotic
-GI consulted, recommendations appreciated
Guillain [place] syndrome, with chronic LLE weakness
Hyponatremia
Congenital heart surgery as a child, no records available, multiple requests
Moderate /AR
Mild to mod MS
-Will likely need valve surgery in the future, if an appropriate candidate; reevaluate as outpatient.
DVT Prophylaxis: Heparin Subq
Code Status: Full
12/14 Dr. Haq discussed patient prognosis and complexity of case with son over the phone. All questions answered. Dr. Haq specified to patient and son that if renal function did not improve then patient will require dialysis
12/16 patient continued to remain hesitant to initiate dialysis. Dr. Haq was hopeful that patient would have some renal function recovery although after with discussion with nephro it is clear that patient should start on hemodialysis. This was
discussed at length with patient and patient remained adamant about not being started on dialysis. Patient hesitantly agreed after repeated discussion by Dr. Haq and wire annealer.
Patient's son was also aware about this.
Anticipated Discharge: > 48 hours
Subjective/Interval History
-
Date of Service: December 22, 2023
Patient was seen and examined. She has been having diarrhea.
Objective Data
-
Labs:
Laboratory Results
12/22/23
07:40
WBC 16.5 H
Hgb 8.0 L
Hct 25.3 L
Plt Count 334
PT 14.6
INR 1.15
APTT 45.2 H
Sodium 134 L
Potassium 3.9
Chloride 99
Carbon Dioxide 21 L
BUN 20 H
Creatinine 3.5 H
Glucose 106 H
Calcium 8.5
Vital Signs:
Vital Signs
Temp Pulse Resp BP Pulse Ox
97.9 F 85 17 154/70 99
12/22/23 11:24 12/22/23 11:24 12/22/23 11:24 12/22/23 11:24 12/22/23 11:24
I&O
12/21/23 12/22/23 12/23/23
06:59 06:59 06:59
Intake Total 720 / 720 110 / 110
Output Total 0 / 0 0 / 0
Balance 720 / 720 110 / 110
[2023-12-22] MEDS: PLAVIX 75 MG PO (18:01)
[2023-12-22] MEDS: LIPITOR 80 MG PO (18:01)
[2023-12-22] MEDS: IMODIUM 2 MG PO (18:01)
[2023-12-22 18:09] LABS: Glucose - Point of Care 131 mg/dl (70-99)
[2023-12-22] MEDS: NOVOLOG FLEXPEN 3 UNITS SC (18:32)
--- NOTE | 2023-12-22 19:37 | W.PN.POD ---
Today's Communication
Today's Communication
Podiatry for surgical debridement of the Rt foot as limb salvage attempt
Assessment / Plan
-
Rt foot S/p 5th toe amputation 12/06
S/P Rt foot # 2 debridement of all necrotic tissue and Rt 4th toe amputation 12/14/2023
CKD - on HD now
Rt foot cellulitis.
Diabetic small vessel disease - Patient is S/P Angiogram with intravascular lithotripsy of post tibial artery and SFA, noted t have severe small vessel disease in Post tibial in the plantar fo distribution
PAD
Diabetic neuropathy.
Plan ; Changed dressings to Rt foot , applied compressive dressings to Rt foot .
WbC count down to 16
IV abx per ID
No wt bearing today on Rt foot, commode to bedside
Pt to use surgical shoe to Rt heel wt bear only.
Since there is improved flow and clinically some improved CFT tot he digits
Podiatry will attempt further surgical debridement of the all necrotic/fibrous tissue and see if the wound heals as an attempt to limb salvage if she does not heal next step would be TMA ,
I have discussed with patient about the plan and she agrees to trying with debridement .
Will plan for for surgical debridement
Subjective
Chief Complaint
Rt 5th toe gangrene and Rt foot infection
Subjective
Patient seen at bedside, in no acute distress, awake, alert, oriented, no SOB or chest pain, she denies any new pedal complaints . Denies any Rt foot pain, no calf pain no fever, chills.
Objective
Temp Pulse Resp BP Pulse Ox
98.5 F 81 11 123/56 98
12/22/23 17:20 12/22/23 17:25 12/22/23 17:25 12/22/23 17:25 12/22/23 17:25
12/22/23 07:40
Vital Signs and Lab results were reviewed.
Rt foot palpable Dp and dopplerable PT pedal pulses
Rt foot decreased edema . Rt foot warm to touch
Improved cap refill to Rt 1,2,3 after angiogram yesterday and some improved pallor at the plantar aspect of the forefoot
Rt foot lateral aspect wound with fibrous slough ans some dry necrotic skin noted. no purulence noted, no foul odor noted.
No exposed bone or visible bone.
no crepitus felt, no signs of any abscess felt, no red streaking up the leg.
[2023-12-22] MEDS: ROXICODONE 5 MG PO (20:11)
[2023-12-22] MEDS: HEPARIN SC (20:12)
[2023-12-22 21:31] LABS: Glucose - Point of Care 159 mg/dl (70-99)
[2023-12-22] MEDS: LANTUS 0.0200000000000000004 UNITS SC (22:57)
[2023-12-22] MEDS: TOPROL XL PO (22:57)
[2023-12-23] MEDS: ZOSYN 50 IV ×3 (02:10→17:36)
[2023-12-23 03:00] VITALS: BP 127/54
--- NOTE | 2023-12-23 04:07 | DOWNTIME ---
There was a [employer] Downtime on 12/23/2023 from 0100 to 12/23/2023 at 0337. Downtime documentation of patient's care, including medication administrations, has been reconciled in the electronic record per guidelines. Refer to the
patient's paper chart under the miscellaneous tab to see printed paper medication records and downtime forms.
[2023-12-23] MEDS: TYLENOL 1000 MG PO ×3 (05:15→21:29)
[2023-12-23 06:00] VITALS: BMI 28.7
[2023-12-23 07:18] LABS: Hematocrit 23.4 % (37.0-47.0); Hemoglobin 7.7 g/dL (12.0-16.0); Mean Corp Hgb Conc. 32.9 g/dL (33.0-37.0); Mean Corpuscular Volume 79.1 fL (81.0-99.0); Mean Platelet Volume 9.4 fL (7.4-10.4); Platelet Count 322 10^3/uL (130-400); Red Blood Cell Count 2.96 10^6/uL (4.20-5.40); White Blood Cell Count 14.5 10^3/uL (4.8-10.8)
[2023-12-23 07:26] VITALS: BP 152/61
[2023-12-23 07:42] LABS: Glucose - Point of Care 158 mg/dl (70-99)
--- NOTE | 2023-12-23 07:56 | PN.DE.MGMTRT ---
Insulin Management
- -
12/23/2023: Diabetes Management Follow up:
Patient admitted with Right fifth toe discoloration, open wound.
PMH: CAD(CABG 1981), CKD, CVA x2, HTN, Retinopathy, CHF and T2DM. A1C 9.2%, Cr 3.0 eGFR 18.59, was taking Lantus 18-20 units @ HS and Lispro 4 units AC. Patient states she was diagnosed with diabetes at age 12 and started insulin at age 13. She
states her A1C is greatly improved. She has a glucose monitor and tests daily.
Patient is awake, alert and oriented, for dialysis this AM, able to discuss diabetes management.
POD # 16 s/p Right 5th toe amputation, POD #9 s/p tissue debridement R foot and amputation 4th toe. HD cath placed, HD started 12/16. Cr 4.6, eGFR 11.13 today.
Glucose range 112 to 159. Patient to receive HD today.
Will continue 2 unit Lantus @ HS, with novolog 3 units AC. Discussed with patient the importance of quality nutrition and importance of eating meals and protein to assist healing. She verbalized understanding.
May return to OR 12/23 for further debridement of R foot.
Discussed with nurse. Will cont to follow and adjust insulin dose if necessary
Diabetes History
- -
Type of Diabetes: 2 requiring insulin
Pre-Admission Diabetes Regimen
12/22/23
07:40
Creatinine 3.5 H
Lab Results
Hemoglobin A1c 9.2 % (4.0-5.6) H 12/06/23 08:12
Insulin Pump Settings
IP Diabetes Regimen
12/22/23 12/22/23 12/22/23
07:40 11:15 18:07
Glucose 106 H
POC Glucose 125 H 131 H
12/22/23 12/23/23
21:30 07:36
Glucose
POC Glucose 159 H 158 H
Meal type: Lunch
Meal type: Breakfast
Amount consumed: 0
Patient Education
[2023-12-23 08:05] LABS: Blood Urea Nitrogen 29 mg/dl (7-17); Calcium 8.6 mg/dl (8.4-10.2); Carbon Dioxide 21 mmol/L (22-30); Chloride 97 mmol/L (98-107); Estimated Creatinine Clearance 14 ml/min; Glucose 117 mg/dl (70-99); Potassium 4.1 mmol/L (3.5-5.1); Sodium 134 mmol/L (135-145); eGFR 11.13
[2023-12-23] MEDS: RETACRIT 8000 UNITS IV (09:17)
--- NOTE | 2023-12-23 09:25 | W.PN.GI.CBS2 ---
Addendum entered and electronically signed by Aristides Mcgovern MD 12/23/23 14:00:
I saw and examined the patient.
The WAREHOUSE MATERIAL HANDLER or PA's note was reviewed and I agree with the note.
Comment: 48 yo F complicated medical history with diarrhea likely due to antibiotics.
Stool culture pending.
Abx per ID.
Ok to give one more dose of imodium today.
Original Note:
Today's Communication / Plan
-
likely antibiotic related diarrhea
some improvement this am with form to stools
await ID to see if antibiotic regiment can be changed
reviewed with nursing will give additional dose Imodium today if further diarrhea after next dose abx
c-diff neg other cx pending
cont probiotics
pt declines dietary restriction for diarrhea-- educated on what may be best
consider eventual OP colonoscopy with anemia and no prior screening
support given as frustrated with ongoing medical issues
Assessment / Plan
-
Pt is a 48yo with hx NIDDM with neuropathy, nephropathy and retinopathy with new HD this admission, valvular disease, CHF, CVA, ASCVD, Guillain-barre syndrome, visual impairment, congenital heart disease, CAD with prolonged admission with PAD with
diabetic foot ulcer s/p toe amp and debridement 12/13 and intravascular lithotripsy for critical limb ischemia on 12/20. She related onset of diarrhea with ongoing antibiotic therapy. c-diff 12/21 was negative. No hx colonoscopy in past and no
issues with diarrhea prior to admission. c-diff neg 12/21 with other cx pending. Pt also noted with anemia with microcytosis and acute on chronic CKD with creat up to 4.8 during admission with new HD.
-diarrhea
-PAD with diabetic foot ulcer with amp/debridement and intravascular lithotripsy with critical limb ischemia on Plavix
-NIDDM
-acute on chronic CKD with HD
-microcytic anemia
other medical problems:
-CVA
-CAD
-guillain barre
PLAN:
likely antibiotic related diarrhea
some improvement this am with form to stools
await ID to see if antibiotic regiment can be changed
reviewed with nursing will give additional dose Imodium today if further diarrhea after next dose abx
c-diff neg other cx pending
cont probiotics
pt declines dietary restriction for diarrhea-- educated on what may be best
consider eventual OP colonoscopy with anemia and no prior screening
support given as frustrated with ongoing medical issues
Subjective
Subjective
Date of Service: December 23, 2023
some loose stool last PM but admits to slight improvement with some form
Objective
Data Reviewed
Laboratory Data:
Laboratory Results
12/23/23 06:47
12/23/23 06:47
Laboratory Results
PT 14.6 Sec (11.4-14.6) 12/22/23 07:40
INR 1.15 12/22/23 07:40
APTT 45.2 Sec (23.4-35.0) H 12/22/23 07:40
Magnesium 2.0 mg/dl (1.6-2.3) 12/14/23 08:46
Total Bilirubin 0.9 mg/dl (0.2-1.3) 12/18/23 07:45
AST 110 U/L (14-36) H 12/18/23 07:45
ALT 19 U/L (0-35) 12/18/23 07:45
Alkaline Phosphatase 725 U/L (38-126) H 12/18/23 07:45
Vital Signs and I&O:
Vital Signs
Temp Pulse Resp BP Pulse Ox
97.6 F 76 20 152/61 97
12/23/23 07:26 12/23/23 07:26 12/23/23 07:26 12/23/23 07:26 12/23/23 07:26
I&O
12/22/23 12/23/23 12/24/23
06:59 06:59 06:59
Intake Total 110 / 110 170 / 170
Output Total 0 / 0
Balance 110 / 110 170 / 170
Physical Exam
Physical Exam
HEENT: Anicteric and Moist mucous membranes
Cardiology: Normal Sinus Rhythm
Pulmonary: Clear
GI: Soft, Non Distended and Non Tender
Extremities: Other (foot with intact dressing)
Neuro: Non Focal
[2023-12-23] MEDS: NOVOLOG FLEXPEN-LOW RESISTANCE SC ×3 (10:07→17:35)
[2023-12-23] MEDS: NOVOLOG FLEXPEN SC ×2 (10:07→12:22)
--- NOTE | 2023-12-23 10:56 | W.PN.NEPH.HD ---
Assessment
-
Patient seen on dialysis
Systolic blood pressure 165 recurrent UF
Next dialysis will be Thursday
Progress Note - Hemodialysis
-
Date of Service: December 23, 2023
Duration: 30 minutes and 3 hours
Potassium Bath: 3
Calcium Bath: 2.5
Opti-Dialyzer: 160
Ultrafiltration: Other (2 kg)
Blood Flow: 400
Dialysate Flow: 600
Heparin: None
EPO: 8000
[2023-12-23 11:00] VITALS: BP 165/78
[2023-12-23] MEDS: ASPIR LOW (ENTERIC COATED) 81 MG PO (12:09)
[2023-12-23] MEDS: VISBIOME 1 CAP PO (12:09)
[2023-12-23] MEDS: COLACE PO (12:10)
[2023-12-23] MEDS: PLAVIX PO (12:10)
[2023-12-23 12:17] LABS: Glucose - Point of Care 86 mg/dl (70-99)
[2023-12-23] MEDS: HEPARIN 5000 UNITS SC (12:21)
--- NOTE | 2023-12-23 14:08 | W.PN.ID1 ---
Date of Service
Date of Service: December 23, 2023
Today's Communication
continue zosyn
will reassess foot post operatively
Assessment / Plan
Diabetic Foot Infection
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
- revision with 4th toe amp (12/14/23)
PAD
- lithotripsy/angiography 12/20
DM1 - uncontrolled (HbA1c = 9.2 [12/06/23] )
CKD4
- now on HD
Congenital Heart disease
/AR
Pulm HTN
Hx Guillain [place] syndrome, with chronic LLE weakness
Recommendations:
Diarrhea - agree likely antibiotic associate diarrhea
- C diff negative
- limited value to stool cultures in my opinion
- most likely antibiotic associated diarrhea
- pending reevaluation of foot post operatively, continue antibiotics
- trial of PRN Imodium
Blood cultures without growth.
MRI previously revealed presence of suspected osteomyelitis of the fifth met head and proximal phalanx of the fourth toe.
Patient is S/P revision surgery 12/14/23.
Continue Zosyn.
Note Consideration of TMA of the right foot
����������������������������������������������������������
Chief Complaint
-: Leukocytosis and Other (Right foot diabetic foot infection)
Subjective / Review of Systems
afebrile
bp stable
declining leukocytosis
K normal
podiatry doing dressing changes
minimal abdominal tenderness
Vital Signs / Physical Exam
Vital Signs
Vital Signs
Temp Pulse Resp BP Pulse Ox
98.0 F 75 18 165/78 96
12/23/23 11:00 12/23/23 11:00 12/23/23 11:00 12/23/23 11:00 12/23/23 11:00
Physical Exam
Constitutional: No Acute Distress
Cardiovascular: Regular Rate and S1/S2; Negative Murmur or Rub
Pulmonary: Clear and Symmetric; Negative Wheezes or Rales
Gastrointestinal: Soft, Non Tender, Non Distended and Normal Bowel Sounds
Skin: Warm and Dry; Negative Rash or Jaundice
Wound: Other (dressing take down deferred)
Objective Data
Lab Data
Lab Results
12/23/23 06:47
12/23/23 06:47
ESR 105 mm/hour (0-20) H 12/06/23 00:52
PT 14.6 Sec (11.4-14.6) 12/22/23 07:40
INR 1.15 12/22/23 07:40
APTT 45.2 Sec (23.4-35.0) H 12/22/23 07:40
Estimated Creat Clear 14 ml/min 12/23/23 06:47
Lactic Acid 1.2 mmol/L (0.7-2.0) 12/06/23 00:52
Total Bilirubin 0.9 mg/dl (0.2-1.3) 12/18/23 07:45
AST 110 U/L (14-36) H 12/18/23 07:45
ALT 19 U/L (0-35) 12/18/23 07:45
Alkaline Phosphatase 725 U/L (38-126) H 12/18/23 07:45
C-Reactive Protein 223.70 mg/L (0.0-10.00) H 12/06/23 00:52
Most recent labs reviewed.
Micro Results:
12/22/23 11:32 Salmonella/Shigella Culture - Preliminary
Feces/Stool Culture in Progress
Campylobacter Culture - Preliminary
Culture in Progress
Shiga Toxin Test - Pending
Stool Leukocytes - Final
12/22/23 11:32 C. difficile GDH Antigen & Toxins - Final
Feces/Stool Negative for toxigenic C.difficile
12/14/23 20:41 Wound Culture - Final
Foot - Right No growth
Gram Stain - Final
12/14/23 20:41 Anaerobic Culture - Final
Foot - Right Bacteroides thetaiotaomicrom
12/07/23 16:14 Wound Culture - Final
Foot - Right S aureus-Methicillin Sensitive
Streptococcus agalactiae
Gram Stain - Final
12/07/23 16:14 Anaerobic Culture - Final
Foot - Right
12/06/23 03:26 Blood Culture - Final
Blood/Venous No Growth - Final Report
12/06/23 00:51 Blood Culture - Final
Blood/Venous No Growth - Final Report
12/06/23 22:32 MRSA Screen - Final
Nose No Methicillin Resistant Staphylococcus aureus isolated.
--- NOTE | 2023-12-23 16:10 | W.PN.HOSP.TC ---
Today's Communication/Plan
-
Cardiology clearance requested prior to podiatry procedure tomorrow -- appreciate cardiology
Hold Plavix as per podiatry request
Diarrhea improving, appreciate ID and GI
Assessment / Plan
Assessment / Plan
Physical Exam
General: Not in acute distress
HEENT: Normocephalic
Respiratory: Clear to Auscultation
Cardiac: Regular Rhythm and S1/S2
GI: Soft, Nontender and Nondistended
Musculoskeletal: Other (Right lower extremity dressing in place )
Neuro: Awake, Alert, Oriented and No Motor Deficits
Psych: Calm
Lower right foot MRI 12/06
1. 2.5 cm ABSCESS dorsal to the right 5th MTP joint.
2. SOFT TISSUE EMPHYSEMA tracking around the proximal phalanx of the right 5th toe.
3. SEVERE CELLULITIS throughout the right forefoot.
4. No MRI evidence for acute osteomyelitis.
5. Diffuse signal abnormality throughout the muscles of the right foot (either severe diffuse myositis or acute on chronic muscle denervation secondary to diabetes mellitus).
Lower right foot MRI 12/13
1. PROBABLE ACUTE OSTEOMYELITIS in the right 5th metatarsal head and proximal phalanx of the 4th toe.
2. Large 5.0 cm region of nonenhancing soft tissue necrosis in the lateral right forefoot.
3. No MRI evidence for rim-enhancing enhancing fluid collection to suggest an abscess.
4. Recent amputation of the 5th toe.
5. Severe acute myositis or muscle denervation throughout the right foot.
6. Severe diffuse cellulitis.
US abd
IMPRESSION:
1. Right lower extremity: IVANIA 1.08 within normal limits. TBI mildly reduced 0.60. Eccentric wall calcification noted in vessels. Proximal superficial femoral artery velocity elevation of 357 cm/s with velocity ratio of 2.22 consistent with at least
50-74% stenosis. Monophasic waveforms noted distal to the stenosis.
2. Left lower extremity: IVANIA 1.31 within normal limits. TBI minimally reduced 0.67. Eccentric wall calcification noted in vessels. Multiphasic waveforms throughout lower extremity arteries with distal superficial femoral artery velocity elevation
245 cm/s and velocity ratio of 2.13 consistent with likely 50-74% stenosis. Multiphasic waveforms are maintained distal to the stenosis. Continuous Doppler waverforms at the dorsalis pedis and posterior tibial arteries also remain multiphasic.

1. Right Diabetic foot infection
s/p 5th toe amputation POD #4 status post diagnostic arteriogram, intravascular lithotripsy of the posterior tibial artery and proximal SFA, balloon angioplasty and nitroglycerin injection of posterior tibial artery on 12/21/23
Right foot cellulitis
-Patient presented for initial right foot fifth dual infection/cellulitis
-MRI of the foot showing soft tissue emphysema/cellulitis and abscess of MTP joint of fifth toe
-Underwent fifth toe amputation by podiatry
-Intraoperative culture growing MSSA/Streptococcus agalactia. Intraoperative bone margin pathology is negative for any osteomyelitis
-Patient started to having new worsening leukocytosis and a repeat MRI on 12/13 showing large soft tissue necrosis area
-Patient underwent debridement of right foot on 12/13 evening by podiatry, repeat wound culture growing bacteriods.
-Revision with 4th toe amp (12/14/23)
-Antibiotic escalated to Zosyn again from [facility] -- continue Zosyn
-Patient at high risk of limb loss with poor vasculature, which is difficult in turn to be intervened upon due to ongoing renal failure/contrast exposure risk.
-Started patient on Plavix on 12/22/23 in addition to Aspirin, as recommended by vascular surgery
-As per vascular surgery, patient has extensive small vessel disease in the plantar distribution and may be best served with a transmetatarsal amputation at this point given the appearance of her right foot wound - podiatry plans to perform surgical
debridement tomorrow - requested cardiology to clear patient for this procedure
2. MARYLOU with CKD stage IV
AGAP metabolic acidosis -resolved
Proteinuria
-cr improved to 1.8 with Bumex drip, but then trended up again
-Urine protein/cr ratio of 0.6
-Continue dialysis as per nephrology
-RHC on 12/08 showing PCWP of 47mmHg and was started on Bumex drip, renal function did improve but declined again later .
-Patient started on hemodialysis on 12/16 and able to tolerate without issues - continue dialysis as per nephrology
-Likely will need tunneled dialysis catheter
3. PAD
-Significant arterial disease with possible suggestive of bilateral proximal superficial femoral artery stenosis of 50 to 74%
-Vascular surgery involved in care and patient currently not a candidate for angiography due to renal failure
-Status post diagnostic arteriogram, intravascular lithotripsy of the posterior tibial artery and proximal SFA, balloon angioplasty and nitroglycerin injection of posterior tibial artery on 12/21/23
-Started DAPT -- but holding Plavix for podiatry debridement for tomorrow
-Aggressive control of arterial disease risk factors
4. Acute on chronic diastolic congestive heart failure
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
-Patient weight down trended with Bumex drip, some repeat upward trend on weight
-Currently diuretics being held with worsening renal failure
-Cardiology following and help appreciated
5. Diabetes mellitus
Hypoglycemia
-presumed Type I as diagnosed age 12.
-Diabetes TELEVISION NEWS ANCHOR consulted, recommendations appreciated
-Insulin being adjusted as appropriate
6. Iron def anemia
Acute blood loss anemia from post op
-Ferritin of 74.6 with saturation of 12% and acute phase suggestive of iron deficiency anemia
-Got 7 doses of IV Ferrlecit.
-Patient has significant blood loss from surgical site debridement required multiple dressing and localized thrombin rx
-Required total 3 U prbc thic visit
7. h/o of CVA
Legally blind in right eye
- Multiple prior CVAs. LINQ recorder recommended; however, patient declined.
- Continue daily ASA. Will hold Plavix acutely in the event that surgical intervention is needed.
8. pSVT
-Continue metoprolol succinate qhs 25 mg
9. Diarrhea -- likely antibiotic-associated diarrhea
-Stool studies ordered -- C. diff negative
-Probiotic
-GI consulted, recommendations appreciated
-Imodium being given - one more dose today
Guillain [place] syndrome, with chronic LLE weakness
Hyponatremia
Congenital heart surgery as a child, no records available, multiple requests
Moderate /AR
Mild to mod MS
-Will likely need valve surgery in the future, if an appropriate candidate; reevaluate as outpatient.
DVT Prophylaxis: Heparin Subq
Code Status: Full
12/14 Dr. Haq discussed patient prognosis and complexity of case with son over the phone. All questions answered. Dr. Haq specified to patient and son that if renal function did not improve then patient will require dialysis
12/16 patient continued to remain hesitant to initiate dialysis. Dr. Haq was hopeful that patient would have some renal function recovery although after with discussion with nephro it is clear that patient should start on hemodialysis. This was
discussed at length with patient and patient remained adamant about not being started on dialysis. Patient hesitantly agreed after repeated discussion by Dr. Haq and gasket maker.
Patient's son was also aware about this.
Anticipated Discharge: > 48 hours
Subjective/Interval History
-
Date of Service: December 23, 2023
Patient was seen and examined. She was getting dialysis at the time she was seen, and denied any new significant symptoms.
Objective Data
-
Labs:
Laboratory Results
12/23/23
06:47
WBC 14.5 H
Hgb 7.7 L
Hct 23.4 L
Plt Count 322
Sodium 134 L
Potassium 4.1
Chloride 97 L
Carbon Dioxide 21 L
BUN 29 H
Creatinine 4.6 H*
Glucose 117 H
Calcium 8.6
Vital Signs:
Vital Signs
Temp Pulse Resp BP Pulse Ox
98.0 F 75 18 165/78 96
12/23/23 11:00 12/23/23 11:00 12/23/23 11:00 12/23/23 11:00 12/23/23 11:00
I&O
12/22/23 12/23/23 12/24/23
06:59 06:59 06:59
Intake Total 110 / 110 170 / 170
Output Total 0 / 0
Balance 110 / 110 170 / 170
--- NOTE | 2023-12-23 16:32 | W.PN.CD ---
Addendum entered and electronically signed by Cheko Matson MD 12/23/23 17:48:
I saw and examined the patient.
The SAMPLE MAKER HAND's note was reviewed and I agree with the note.
Patient preop for surgical debridement of right foot. Patient is tolerated foot surgery earlier this admission. patient is an increased risk due to prior history of left heart failure/heart failure with preserved ejection fraction in the setting of
ESRD, moderate AAS, moderate MR and mild to moderate MS. Since that time patient's had removal of volume with hemodialysis and is down nearly 4 kg. Respiratory status is currently stable. Although patient has some increased cardiac risk including
increased risk for development of left heart failure her condition is currently stable to proceed.
-Of note patient does have significant anemia. Would defer to primary team regarding management of anemia and decisions on whether to give additional PRBCs preoperatively.
-Continued control of volume with HD
-Monitor for clinical signs of heart failure.
-Monitor on telemetry
Original Note:
Today's Communication / Plan
-
Plan is for surgical debridement of the right foot as limb salvage attempt tomorrow with podiatry. She is at elevated risk, but denies any CP, SOB, or palpitations. Continue metoprolol. Follow volume, telemetry, and BP's.
Impression / Plan
-
Severe acute on chronic HFpEF, (PCWP 47 at 77 kg on 12/09/2023)
-Unclear dry weight. Patient with end-stage renal failure dialysis has been initiated. Weight now 73.6. Volume management with HD.
pSVT
-stable on telemetry
-continue metoprolol
Mixed valvular heart disease
-Moderate , moderate AR, mild/moderate MS
-Will likely need valve surgery in the future, if an appropriate candidate; reevaluate as outpatient.
-[facility] has no records
Congenital heart surgery as a child, no records available, multiple requests
Right 5th toe osteomyelitis
-Amputation performed on 12/07/2023
-Debridement 12/14/2023
-No cardiac complications detected from surgery
-plan is for surgical debridement of the right foot as limb salvage attempt tomorrow with podiatry. She is at elevated risk, but denies any CP, SOB, or palpitations. Continue metoprolol. Follow volume, telemetry, and BP's.
Sepsis in the setting of right 5th toe infection in a diabetic patient
PAD:
-vascular surgery has been involved
-s/p intravascular lithotripsy to diffuse right posterior tibial artery stenosis, right above-knee popliteal artery stenosis, and right proximal superficial femoral artery stenosis
Anemia:
-has had iron and blood this admit
-management per primary team
Type I vs 2 DM, uncontrolled, Hgba1c 9.6%, per primary => multiple complications
-Pt hopes not to take SGLT2-I in future.
-She thinks she has type II DM, we generally do not use SGLT2-I in type I DM
Prior CVA, refused LINQ
Guillain [place] syndrome, with chronic LLE weakness
Subjective:
Denies CP, SOB, or palpitations
DATA:
RHC 12/09/2023:
Weight (kg):77.1
PA (s/d/x mmHg): 99/31/54
PCWP (a/v/x mmHg): 55/64/47
RV (s/x mmHg): 100/17
RA (a/v/x mmHg): 25/17
Echo 12/08/2023:
Left ventricle is small in size.
Hyperdynamic left ventricular systolic function.
Stage II diastolic dysfunction suggestive of abnormal relaxation and increased
filling pressures.
Dense mitral annular calcification.
Mild to moderate mitral stenosis (calcific in nature with the dense MAC. The
anterior MV leaflet moves normally).
Mild mitral regurgitation.
Thickened aortic valve with restricted leaflet motion.
Moderate aortic stenosis.
Moderate aortic regurgitation.
Mild tricuspid regurgitation.
Estimated PASP 60-65 mmHg.
No significant change since the prior study of 04/07/2023.
The nature of her congenital heart disease and congenital heart surgery at age
5 is unknown. She reports correction of a blockage near her aorta or aortic
valve.
Physical Exam
Vital Signs/Labs
Vital Signs
Temp Pulse Resp BP Pulse Ox
98.0 F 75 18 165/78 96
12/23/23 11:00 12/23/23 11:00 12/23/23 11:00 12/23/23 11:00 12/23/23 11:00
12/22/23 12/23/23 12/24/23
06:59 06:59 06:59
Actual Weight 73.085 kg 73.567 kg
12/23/23 06:47
12/23/23 06:47
PT 14.6 Sec (11.4-14.6) 12/22/23 07:40
INR 1.15 12/22/23 07:40
APTT 45.2 Sec (23.4-35.0) H 12/22/23 07:40
Magnesium 2.0 mg/dl (1.6-2.3) 12/14/23 08:46
12/08/23
08:30
[id number] Pept [id number]
Physical Exam
Constitutional: No acute distress
EENT: Anicteric
Cardiovascular: Rhythm & rate is regular and Pedal edema present (mild)
Respiratory: Respiratory effort normal and Lungs clear to auscul.
Neuro/Psych: AO x 3
Other: Other (right LE with dressing CDI)
Data Reviewed
-
Date of Service: December 23, 2023
EKG: Other (tele SR)
Labs: Labs Reviewed by me
[2023-12-23 16:52] LABS: Glucose - Point of Care 138 mg/dl (70-99)
[2023-12-23] MEDS: LIPITOR 80 MG PO (17:36)
[2023-12-23] MEDS: NOVOLOG FLEXPEN 3 UNITS SC (17:38)
[2023-12-23] MEDS: IMODIUM 2 MG PO (17:41)
[2023-12-23 19:54] VITALS: BP 134/63
[2023-12-23] MEDS: HEPARIN SC (21:29)
[2023-12-23 21:39] VITALS: BP 135/60
[2023-12-23] MEDS: TOPROL XL 25 MG PO (21:40)
[2023-12-23 21:53] LABS: Glucose - Point of Care 231 mg/dl (70-99)
[2023-12-23] MEDS: LANTUS 0.0200000000000000004 UNITS SC (22:37)
[2023-12-23 22:51] VITALS: BP 139/61
[2023-12-24] VITALS (10 sets, daily range): BP systolic 110–175; BP diastolic 52–80; BMI 28.2
[2023-12-24] MEDS: ZOSYN 50 IV ×3 (01:30→23:02)
[2023-12-24] MEDS: IMODIUM 2 MG PO ×2 (02:30→22:49)
--- NOTE | 2023-12-24 02:30 | PTCARENOTE ---
Pt insisting on receiving PRN Imodium after IV abx infusion is complete. Pt reports that 'I was told I could have the imodium one hour before my antibiotic so I won't get diarrhea'. Pt has imodium ordered PRN q6h per current SEP, however this RN
educated the pt that GI's report from today stated 'ok to give one more dose of imodium today' and that she had already received a dose of imodium after dinner last night. Pt still demanding to have PRN imodium despite education from this RN. PRN
Imodium provided to pt. Will continue to monitor for further diarrhea and pass along to day shift RN.
[2023-12-24] MEDS: TYLENOL PO ×2 (04:59→11:51)
[2023-12-24 06:14] LABS: INR 1.17; PT 14.9 Sec (11.4-14.6)
[2023-12-24 06:16] LABS: APTT 55.5 Sec (23.4-35.0)
[2023-12-24 07:28] LABS: Glucose - Point of Care 175 mg/dl (70-99)
[2023-12-24 08:07] LABS: % Basophils 0.8 % (0-2); % Eosinophils 1.3 % (0-6); % Immature Granulocytes 0.9 % (0-0.5); % Lymphocytes 9.9 % (20.5-51.1); % Monocytes 11.5 % (1.7-9.3); % Neutrophils 75.6 % (42.2-75.2); Absolute Basophils 0.1 10^3/uL (0-0.2); Absolute Eosinophils 0.2 10^3/uL (0-0.7); Absolute Immature Granulocytes 0.1 10^3/uL (0-0.05); Absolute Lymphocytes 1.3 10^3/uL (1.2-3.4); Absolute Monocytes 1.5 10^3/uL (0.1-0.6); Absolute Neutrophils 9.7 10^3/uL (1.4-6.5); Hematocrit 24.5 % (37.0-47.0); Mean Corp Hgb Conc. 32.7 g/dL (33.0-37.0); Mean Corpuscular Hgb 26.2 pg (27.0-31.0); Mean Corpuscular Volume 80.3 fL (81.0-99.0); Mean Platelet Volume 9.3 fL (7.4-10.4); Nucleated Red Blood Cells % 0.2 %; Platelet Count 346 10^3/uL (130-400); Red Blood Cell Count 3.05 10^6/uL (4.20-5.40); Red Cell Dist. Width 25.6 % (11.5-14.5); White Blood Cell Count 12.8 10^3/uL (4.8-10.8)
[2023-12-24] MEDS: NOVOLOG FLEXPEN 3 UNITS SC ×2 (08:20→18:26)
[2023-12-24] MEDS: NOVOLOG FLEXPEN-LOW RESISTANCE SC ×3 (08:20→17:35)
[2023-12-24] MEDS: VISBIOME 1 CAP PO (08:21)
[2023-12-24] MEDS: ASPIR LOW (ENTERIC COATED) 81 MG PO (08:21)
--- NOTE | 2023-12-24 08:24 | PN.DE.MGMTRT ---
Insulin Management
- -
12/24/2023: Diabetes Management Follow up:
Patient admitted with Right fifth toe discoloration, open wound.
PMH: CAD(CABG 1981), CKD, CVA x2, HTN, Retinopathy, CHF and T2DM. A1C 9.2%, Cr 3.0 eGFR 18.59, was taking Lantus 18-20 units @ HS and Lispro 4 units AC. Patient states she was diagnosed with diabetes at age 12 and started insulin at age 13. She
states her A1C is greatly improved. She has a glucose monitor and tests daily.
Patient is awake, alert and oriented, able to discuss diabetes management.
POD # 17 s/p Right 5th toe amputation, POD #10 s/p tissue debridement R foot and amputation 4th toe. HD cath placed, HD started 12/16. Cr , eGFR today.
Glucose range 112 to 231 on 12/22 unsure of cause of 231 @ HS, will discuss with patient. Patient possibly for OR today for further debridement of R foot.
Will continue 2 unit Lantus @ HS, with novolog 3 units AC.
Discussed with nurse. Will cont to follow and adjust insulin dose if necessary
Diabetes History
- -
Type of Diabetes: 2 requiring insulin
Pre-Admission Diabetes Regimen
Lab Results
Hemoglobin A1c 9.2 % (4.0-5.6) H 12/06/23 08:12
Insulin Pump Settings
IP Diabetes Regimen
12/23/23 12/23/23 12/23/23
12:15 16:50 21:51
POC Glucose 86 138 H 231 H
12/24/23
07:24
POC Glucose 175 H
Meal type: Lunch
Meal type: Breakfast
Amount consumed: 60%
Amount consumed: 80%
Patient Education
[2023-12-24 08:33] LABS: Blood Urea Nitrogen 18 mg/dl (7-17); Calcium 8.8 mg/dl (8.4-10.2); Carbon Dioxide 22 mmol/L (22-30); Chloride 98 mmol/L (98-107); Estimated Creatinine Clearance 19 ml/min; Glucose 163 mg/dl (70-99); Potassium 3.8 mmol/L (3.5-5.1); Sodium 134 mmol/L (135-145); eGFR 15.45
[2023-12-24] MEDS: HEPARIN SC (08:37)
--- NOTE | 2023-12-24 08:52 | W.PN.CD ---
Addendum entered and electronically signed by Timothy Hernandez MD 12/24/23 11:41:
I saw and examined the patient.
The TAX ASSOCIATE ATTORNEY's note was reviewed and I agree with the note.
Comment: HF is compensated. She should tolerate debridement.
Original Note:
Today's Communication / Plan
-
-plan is for surgical debridement today with podiatry
-continue metoprolol and follow telemetry
-follow BP's. As below, AM BP listed at 171/75- my manual reassessment 156/64. Monitor closely, as this is more elevated for her compared to overall trend.
-follow volume, which is now managed by HD (with plan for session tomorrow)
-anemia tx per primary team
Impression / Plan
-
Severe acute on chronic HFpEF, (PCWP 47 at 77 kg on 12/09/2023): improved
-Unclear dry weight. Patient with end-stage renal failure dialysis has been initiated. Weight now 72.2. Volume management with HD- next HD treatment is planned for tomorrow.
pSVT
-stable on telemetry
-continue metoprolol
Mixed valvular heart disease
-Moderate , moderate AR, mild/moderate MS
-Will likely need valve surgery in the future, if an appropriate candidate; reevaluate as outpatient.
-[facility] has no records
Congenital heart surgery as a child, no records available, multiple requests
Right 5th toe osteomyelitis
-Amputation performed on 12/07/2023
-Debridement 12/14/2023
-No cardiac complications detected from surgery
-Patient preop for surgical debridement of right foot. Patient has tolerated foot surgery earlier this admission as noted. She is at increased risk due to prior history of left heart failure/heart failure with preserved ejection fraction in the
setting of ESRD, moderate , moderate MR, and mild to moderate MS. Since that time, patient's had removal of volume with hemodialysis and is down nearly 5 kg. Respiratory status is currently stable. Although patient has some increased cardiac risk
including increased risk for development of left heart failure, her condition is currently stable to proceed. Of note, patient does have significant anemia. Would defer to primary team regarding management of anemia and decisions on whether to give
additional PRBCs preoperatively- Dr. Matson discussed with primary team 12/23/23. Continued control of volume with HD. Monitor for clinical signs of heart failure. Monitor on telemetry. Of note, BP this AM listed at 171/75- I rechecked manually and
it is 156/64- monitor BP's. These are both generally higher for her trend- monitor closely.
Sepsis in the setting of right 5th toe infection in a diabetic patient
PAD:
-vascular surgery has been involved
-s/p intravascular lithotripsy to diffuse right posterior tibial artery stenosis, right above-knee popliteal artery stenosis, and right proximal superficial femoral artery stenosis
Anemia:
-has had iron and blood this admit
-management per primary team
Type I vs 2 DM, uncontrolled, Hgba1c 9.6%, per primary => multiple complications
-Pt hopes not to take SGLT2-I in future.
-She thinks she has type II DM, we generally do not use SGLT2-I in type I DM
Prior CVA, refused LINQ
Guillain [place] syndrome, with chronic LLE weakness
Subjective:
Denies CP or SOB
DATA:
RHC 12/09/2023:
Weight (kg):77.1
PA (s/d/x mmHg): 99/31/54
PCWP (a/v/x mmHg): 55/64/47
RV (s/x mmHg): 100/17
RA (a/v/x mmHg):
Echo 12/08/2023:
Left ventricle is small in size.
Hyperdynamic left ventricular systolic function.
Stage II diastolic dysfunction suggestive of abnormal relaxation and increased
filling pressures.
Dense mitral annular calcification.
Mild to moderate mitral stenosis (calcific in nature with the dense MAC. The
anterior MV leaflet moves normally).
Mild mitral regurgitation.
Thickened aortic valve with restricted leaflet motion.
Moderate aortic stenosis.
Moderate aortic regurgitation.
Mild tricuspid regurgitation.
Estimated PASP 60-65 mmHg.
No significant change since the prior study of 04/07/2023.
The nature of her congenital heart disease and congenital heart surgery at age
5 is unknown. She reports correction of a blockage near her aorta or aortic
valve.
Physical Exam
Vital Signs/Labs
Vital Signs
Temp Pulse Resp BP Pulse Ox
97.4 F 78 20 171/75 100
12/24/23 07:57 12/24/23 07:57 12/24/23 07:57 12/24/23 07:57 12/24/23 07:57
12/23/23 12/24/23 12/25/23
06:59 06:59 06:59
Actual Weight 73.567 kg 72.178 kg
12/24/23 04:46
12/24/23 04:46
PT 14.9 Sec (11.4-14.6) H 12/24/23 04:46
INR 1.17 12/24/23 04:46
APTT 55.5 Sec (23.4-35.0) H 12/24/23 04:46
Magnesium 2.0 mg/dl (1.6-2.3) 12/14/23 08:46
12/08/23
08:30
[id number]-Tqgnwftkpmg Pept [id number]
Physical Exam
Constitutional: No acute distress
EENT: Anicteric
Cardiovascular: Rhythm & rate is regular
Respiratory: Respiratory effort normal and Lungs clear to auscul.
Neuro/Psych: Alert
Data Reviewed
-
Date of Service: December 24, 2023
EKG: Other (SR)
--- NOTE | 2023-12-24 10:19 | W.PN.GI.CBS2 ---
Addendum entered and electronically signed by Aristides Mcgovern MD 12/24/23 13:50:
I saw and examined the patient.
The [employer] or PA's note was reviewed and I agree with the note.
Comment: 48 yo F with complicated medical history GI consulted for diarrhea likely antibiotic related.
Stool studies so far negative.
On imodium doing well.
GI will sign off pls call with ?s.
Original Note:
Today's Communication / Plan
-
likely antibiotic related diarrhea
stool all neg except ecoli pending no WBC's seen
agree with PRN Imodium which has helped
cont probiotics
resume diet
some improvement this am with form to stools
abx management per ID
pt declines dietary restriction for diarrhea-- educated on what may be best
consider eventual OP colonoscopy with anemia and no prior screening
support given as frustrated with ongoing medical issues
will sign off call with questions
Assessment / Plan
-
Pt is a 48yo with hx NIDDM with neuropathy, nephropathy and retinopathy with new HD this admission, valvular disease, CHF, CVA, ASCVD, Guillain-barre syndrome, visual impairment, congenital heart disease, CAD with prolonged admission with PAD with
diabetic foot ulcer s/p toe amp and debridement 12/13 and intravascular lithotripsy for critical limb ischemia on 12/20. She related onset of diarrhea with ongoing antibiotic therapy. c-diff 12/21 was negative. No hx colonoscopy in past and no
issues with diarrhea prior to admission. c-diff neg 12/21 with other cx pending. Pt also noted with anemia with microcytosis and acute on chronic CKD with creat up to 4.8 during admission with new HD.
-diarrhea- likely antibiotic induced
-PAD with diabetic foot ulcer with amp/debridement and intravascular lithotripsy with critical limb ischemia on Plavix
-NIDDM
-acute on chronic CKD with HD
-microcytic anemia
-PSVT cards following
other medical problems:
-CVA
-CAD
-guillain barre
hx congenital heart disease
PLAN:
likely antibiotic related diarrhea
stool all neg except ecoli pending no WBC's seen
agree with PRN Imodium which has helped
cont probiotics
resume diet
some improvement this am with form to stools
abx management per ID
pt declines dietary restriction for diarrhea-- educated on what may be best
consider eventual OP colonoscopy with anemia and no prior screening
support given as frustrated with ongoing medical issues
will sign off call with questions
Subjective
Subjective
Date of Service: December 24, 2023
NPO per staff for return for further debridement today, diarrhea improving with PRN Imodium
Objective
Data Reviewed
Laboratory Data:
Laboratory Results
12/24/23 04:46
12/24/23 04:46
Laboratory Results
PT 14.9 Sec (11.4-14.6) H 12/24/23 04:46
INR 1.17 12/24/23 04:46
APTT 55.5 Sec (23.4-35.0) H 12/24/23 04:46
Magnesium 2.0 mg/dl (1.6-2.3) 12/14/23 08:46
Total Bilirubin 0.9 mg/dl (0.2-1.3) 12/18/23 07:45
AST 110 U/L (14-36) H 12/18/23 07:45
ALT 19 U/L (0-35) 12/18/23 07:45
Alkaline Phosphatase 725 U/L (38-126) H 12/18/23 07:45
Vital Signs and I&O:
Vital Signs
Temp Pulse Resp BP Pulse Ox
97.4 F 78 20 171/75 100
12/24/23 07:57 12/24/23 07:57 12/24/23 07:57 12/24/23 07:57 12/24/23 07:57
I&O
12/23/23 12/24/23 12/25/23
06:59 06:59 06:59
Intake Total 170 / 170 960 / 960
Output Total 0 / 0
Balance 170 / 170 960 / 960
Physical Exam
Physical Exam
HEENT: Anicteric and Moist mucous membranes
Cardiology: Normal Sinus Rhythm
Pulmonary: Clear
GI: Soft, Non Distended and Non Tender
Extremities: Other (foot wound with dressing)
Neuro: Other (flat affect but conversant )
[2023-12-24 11:33] LABS: Glucose - Point of Care 169 mg/dl (70-99)
[2023-12-24] MEDS: NOVOLOG FLEXPEN SC (11:42)
--- NOTE | 2023-12-24 12:12 | W.PN.ID1 ---
Date of Service
Date of Service: December 24, 2023
Today's Communication
Patient is S/P revision surgery 12/14/23, for further revision today, please send margin for pathology
Will continue Zosyn - if a negative margin can be obtained then may not require antibiotics much longer
Assessment / Plan
Diabetic Foot Infection
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
- revision with 4th toe amp (12/14/23)
PAD
- lithotripsy/angiography 12/20
DM1 - uncontrolled (HbA1c = 9.2 [12/06/23] )
CKD4
- now on HD
Congenital Heart disease
/AR
Pulm HTN
Hx Guillain [place] syndrome, with chronic LLE weakness
Recommendations:
Pathology: osteomyelitis to resection margin from 12/14 - for further revision
Blood cultures without growth.
Patient is S/P revision surgery 12/14/23, for further revision today, please send margin for pathology
Will continue Zosyn - if a negative margin can be obtained then may not require antibiotics much longer
����������������������������������������������������������
Chief Complaint
-: Leukocytosis and Other (Right foot diabetic foot infection)
Subjective / Review of Systems
afebrile
bp stable
further improved leukocytosis
K normal
Vital Signs / Physical Exam
Vital Signs
Vital Signs
Temp Pulse Resp BP Pulse Ox
97.6 F 79 20 175/73 100
12/24/23 11:50 12/24/23 11:50 12/24/23 11:50 12/24/23 11:50 12/24/23 11:50
Physical Exam
Constitutional: No Acute Distress and Chronically Ill
Cardiovascular: Regular Rate
Pulmonary: Non Labored
Gastrointestinal: Non Distended
Wound: Other (eschar on the plantar surface, around the necrotic area tissue is pink with granulation; no visible bone)
Objective Data
Lab Data
Lab Results
12/24/23 04:46
12/24/23 04:46
ESR 105 mm/hour (0-20) H 12/06/23 00:52
PT 14.9 Sec (11.4-14.6) H 12/24/23 04:46
INR 1.17 12/24/23 04:46
APTT 55.5 Sec (23.4-35.0) H 12/24/23 04:46
Estimated Creat Clear 19 ml/min 12/24/23 04:46
Lactic Acid 1.2 mmol/L (0.7-2.0) 12/06/23 00:52
Total Bilirubin 0.9 mg/dl (0.2-1.3) 12/18/23 07:45
AST 110 U/L (14-36) H 12/18/23 07:45
ALT 19 U/L (0-35) 12/18/23 07:45
Alkaline Phosphatase 725 U/L (38-126) H 12/18/23 07:45
C-Reactive Protein 223.70 mg/L (0.0-10.00) H 12/06/23 00:52
Most recent labs reviewed.
Micro Results:
12/22/23 11:32 Salmonella/Shigella Culture - Final
Feces/Stool No Salmonella, Shigella, Aeromonas or Plesiomonas species
isolated.
Campylobacter Culture - Final
No Campylobacter species isolated.
Shiga Toxin Test - Final
No E. coli Shiga Toxin 1 or 2 detected.
Stool Leukocytes - Final
12/22/23 11:32 C. difficile GDH Antigen & Toxins - Final
Feces/Stool Negative for toxigenic C.difficile
12/14/23 20:41 Wound Culture - Final
Foot - Right No growth
Gram Stain - Final
12/14/23 20:41 Anaerobic Culture - Final
Foot - Right Bacteroides thetaiotaomicrom
12/07/23 16:14 Wound Culture - Final
Foot - Right S aureus-Methicillin Sensitive
Streptococcus agalactiae
Gram Stain - Final
12/07/23 16:14 Anaerobic Culture - Final
Foot - Right
12/06/23 03:26 Blood Culture - Final
Blood/Venous No Growth - Final Report
12/06/23 00:51 Blood Culture - Final
Blood/Venous No Growth - Final Report
12/06/23 22:32 MRSA Screen - Final
Nose No Methicillin Resistant Staphylococcus aureus isolated.
Care Review
Plan reviewed with: Physician (Podiatry - antibiotics)
--- NOTE | 2023-12-24 12:21 | W.PN.POD ---
Today's Communication
Today's Communication
Patient scheduled for debridement today afternoon
Assessment / Plan
-
Rt foot S/p 5th toe amputation 12/06
S/P Rt foot # 2 debridement of all necrotic tissue and Rt 4th toe amputation 12/14/2023
CKD - on HD now
Rt foot necrotic ulcer- Plan for # #rd Rt foot debridement with possible bone resection from Rt 4,5th metatarsals
Diabetic small vessel disease - Patient is S/P Angiogram with intravascular lithotripsy of post tibial artery and SFA, noted t have severe small vessel disease in Post tibial in the plantar fo distribution
PAD
Diabetic neuropathy.
Plan ; Changed dressings to Rt foot , applied compressive dressings to Rt foot .
WbC count down to 12
IV abx per ID
No wt bearing today on Rt foot, commode to bedside
Pt to use surgical shoe to Rt heel wt bear only.
Since there is improved flow and clinically some improved CFT tot he digits
Podiatry will attempt further surgical debridement of the all necrotic/fibrous tissue and see if the wound heals as an attempt to limb salvage if she does not heal next step would be TMA ,
I have discussed with patient about the plan and she agrees to trying with debridement , no guarantees given to save the toes/foot/limb. Possible more proximal amputations/surgeries given her diabetic small vessel disease and PAD, Pt understands and
agrees to proceed with surgery. explained all risks and alternatives
Patient scheduled for debridement today afternoon .
Obtained surgical consent
Subjective
Chief Complaint
Rt 5th toe gangrene and Rt foot infection
Subjective
Patient seen at bedside, in no acute distress, awake, alert, oriented, no SOB or chest pain, she denies any new pedal complaints . Denies any Rt foot pain, no calf pain no fever, chills.
Objective
Temp Pulse Resp BP Pulse Ox
97.6 F 79 20 175/73 100
12/24/23 11:50 12/24/23 11:50 12/24/23 11:50 12/24/23 11:50 12/24/23 11:50
12/24/23 04:46
12/24/23 04:46
Vital Signs and Lab results were reviewed.
Rt foot palpable Dp and soft dopplerable PT pedal pulses
Rt foot decreased edema . Rt foot warm to touch
Improved cap refill to Rt 1,2,3 after angiogram yesterday and some improved pallor at the plantar aspect of the forefoot
Rt foot lateral aspect wound with fibrous slough and large dry necrotic skin noted. no purulence noted, no foul odor noted.
No exposed bone or visible bone.
no crepitus felt, no signs of any abscess felt, no red streaking up the leg.
--- NOTE | 2023-12-24 14:27 | W.PN.HOSP.TC ---
Today's Communication/Plan
-
Podiatry Revision/Debridement today
Assessment / Plan
Assessment / Plan
Physical Exam
General: Not in acute distress
HEENT: Normocephalic
Respiratory: Clear to Auscultation
Cardiac: Regular Rhythm and S1/S2
GI: Soft, Nontender and Nondistended
Musculoskeletal: Other (Right lower extremity dressing in place )
Neuro: Awake, Alert, Oriented and No Motor Deficits
Psych: Calm
Lower right foot MRI 12/06
1. 2.5 cm ABSCESS dorsal to the right 5th MTP joint.
2. SOFT TISSUE EMPHYSEMA tracking around the proximal phalanx of the right 5th toe.
3. SEVERE CELLULITIS throughout the right forefoot.
4. No MRI evidence for acute osteomyelitis.
5. Diffuse signal abnormality throughout the muscles of the right foot (either severe diffuse myositis or acute on chronic muscle denervation secondary to diabetes mellitus).
Lower right foot MRI 12/13
1. PROBABLE ACUTE OSTEOMYELITIS in the right 5th metatarsal head and proximal phalanx of the 4th toe.
2. Large 5.0 cm region of nonenhancing soft tissue necrosis in the lateral right forefoot.
3. No MRI evidence for rim-enhancing enhancing fluid collection to suggest an abscess.
4. Recent amputation of the 5th toe.
5. Severe acute myositis or muscle denervation throughout the right foot.
6. Severe diffuse cellulitis.
US abd
IMPRESSION:
1. Right lower extremity: IVANIA 1.08 within normal limits. TBI mildly reduced 0.60. Eccentric wall calcification noted in vessels. Proximal superficial femoral artery velocity elevation of 357 cm/s with velocity ratio of 2.22 consistent with at least
50-74% stenosis. Monophasic waveforms noted distal to the stenosis.
2. Left lower extremity: IVANIA 1.31 within normal limits. TBI minimally reduced 0.67. Eccentric wall calcification noted in vessels. Multiphasic waveforms throughout lower extremity arteries with distal superficial femoral artery velocity elevation
245 cm/s and velocity ratio of 2.13 consistent with likely 50-74% stenosis. Multiphasic waveforms are maintained distal to the stenosis. Continuous Doppler waverforms at the dorsalis pedis and posterior tibial arteries also remain multiphasic.

1. Right Diabetic foot infection
s/p 5th toe amputation POD #4 status post diagnostic arteriogram, intravascular lithotripsy of the posterior tibial artery and proximal SFA, balloon angioplasty and nitroglycerin injection of posterior tibial artery on 12/21/23
Right foot cellulitis
-Patient presented for initial right foot fifth dual infection/cellulitis
-MRI of the foot showing soft tissue emphysema/cellulitis and abscess of MTP joint of fifth toe
-Underwent fifth toe amputation by podiatry
-Intraoperative culture growing MSSA/Streptococcus agalactia. Intraoperative bone margin pathology is negative for any osteomyelitis
-Patient started to having new worsening leukocytosis and a repeat MRI on 12/13 showing large soft tissue necrosis area
-Patient underwent debridement of right foot on 12/13 evening by podiatry, repeat wound culture growing bacteriods.
-Revision with 4th toe amp (12/14/23)
-Antibiotic escalated to Zosyn again from [facility] -- continue Zosyn
-Patient at high risk of limb loss with poor vasculature, which is difficult in turn to be intervened upon due to ongoing renal failure/contrast exposure risk.
-Started patient on Plavix on 12/22/23 in addition to Aspirin, as recommended by vascular surgery
-As per vascular surgery, patient has extensive small vessel disease in the plantar distribution and may be best served with a transmetatarsal amputation at this point given the appearance of her right foot wound - podiatry plans to perform surgical
debridement/revision today
2. MARYLOU with CKD stage IV
AGAP metabolic acidosis -resolved
Proteinuria
-cr improved to 1.8 with Bumex drip, but then trended up again
-Urine protein/cr ratio of 0.6
-Continue dialysis as per nephrology
-RHC on 12/08 showing PCWP of 47mmHg and was started on Bumex drip, renal function did improve but declined again later .
-Patient started on hemodialysis on 12/16 and able to tolerate without issues - continue dialysis as per nephrology
-Likely will need tunneled dialysis catheter
3. PAD
-Significant arterial disease with possible suggestive of bilateral proximal superficial femoral artery stenosis of 50 to 74%
-Vascular surgery involved in care and patient currently not a candidate for angiography due to renal failure
-Status post diagnostic arteriogram, intravascular lithotripsy of the posterior tibial artery and proximal SFA, balloon angioplasty and nitroglycerin injection of posterior tibial artery on 12/21/23
-Started DAPT -- but holding Plavix for podiatry debridement for tomorrow
-Aggressive control of arterial disease risk factors
4. Acute on chronic diastolic congestive heart failure
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
-Patient weight down trended with Bumex drip, some repeat upward trend on weight
-Currently diuretics being held with worsening renal failure
-Cardiology following and help appreciated
5. Diabetes mellitus
Hypoglycemia
-presumed Type I as diagnosed age 12.
-Diabetes AUTOMOTIVE COLLISION REPAIR INSTRUCTOR consulted, recommendations appreciated
-Insulin being adjusted as appropriate
6. Iron def anemia
Acute blood loss anemia from post op
-Ferritin of 74.6 with saturation of 12% and acute phase suggestive of iron deficiency anemia
-Got 7 doses of IV Ferrlecit.
-Patient has significant blood loss from surgical site debridement required multiple dressing and localized thrombin rx
-Required total 3 U prbc thic visit
7. h/o of CVA
Legally blind in right eye
- Multiple prior CVAs. LINQ recorder recommended; however, patient declined.
- Continue daily ASA. Will hold Plavix acutely in the event that surgical intervention is needed.
8. pSVT
-Continue metoprolol succinate qhs 25 mg
9. Diarrhea -- likely antibiotic-associated diarrhea -- IMPROVED
-Stool studies ordered -- C. diff negative
-Probiotic
-GI consulted, recommendations appreciated
-Imodium was given
Guillain [place] syndrome, with chronic LLE weakness
Hyponatremia
Congenital heart surgery as a child, no records available, multiple requests
Moderate /AR
Mild to mod MS
-Will likely need valve surgery in the future, if an appropriate candidate; reevaluate as outpatient.
DVT Prophylaxis: Heparin Subq
Code Status: Full
12/14 Dr. Haq discussed patient prognosis and complexity of case with son over the phone. All questions answered. Dr. Haq specified to patient and son that if renal function did not improve then patient will require dialysis
12/16 patient continued to remain hesitant to initiate dialysis. Dr. Haq was hopeful that patient would have some renal function recovery although after with discussion with nephro it is clear that patient should start on hemodialysis. This was
discussed at length with patient and patient remained adamant about not being started on dialysis. Patient hesitantly agreed after repeated discussion by Dr. Haq and claims service adjustor.
Patient's son was also aware about this.
Anticipated Discharge: > 48 hours
Subjective/Interval History
-
Date of Service: December 24, 2023
Patient was seen and examined. She reported her diarrhea has resolved. She denied any other new, significant symptoms or complaints.
Objective Data
-
Labs:
Laboratory Results
12/24/23
04:46
WBC 12.8 H
Hgb 8.0 L
Hct 24.5 L
Plt Count 346
PT 14.9 H
INR 1.17
APTT 55.5 H
Sodium 134 L
Potassium 3.8
Chloride 98
Carbon Dioxide 22
BUN 18 H
Creatinine 3.5 H
Glucose 163 H
Calcium 8.8
Vital Signs:
Vital Signs
Temp Pulse Resp BP Pulse Ox
97.6 F 79 20 175/73 100
12/24/23 11:50 12/24/23 11:50 12/24/23 11:50 12/24/23 11:50 12/24/23 12:28
I&O
12/23/23 12/24/23 12/25/23
06:59 06:59 06:59
Intake Total 170 / 170 960 / 960
Output Total 0 / 0
Balance 170 / 170 960 / 960
--- NOTE | 2023-12-24 15:05 | CM ---
Spoke with patient bedside.
Patient for debridement today.
Patient lives with her son and thought he could possibly be her caregiver. (he will not change dressings)
CM discussed possibility of skilled rehab post d/c and reviewed options.
Patient would prefer home with [facility].
Patient will probably need outpatient HD arranged and would like [facility] if possible.
Son will be able to transport patient for HD.
Patient also discussed possibility of moving to [place] in the near future to be closer to family.
Per patient there is a possibility of further amputations.
Plan: skilled vs home with [facility]
[2023-12-24] MEDS: ZOSYN IV (16:23)
--- NOTE | 2023-12-24 16:33 | W.PN.UPDATE ---
Update Note
Progress Note Update
Dialysis tomorrow
orders provided
remains anuric
BP remains elevated
We will continue to reduce dry weight
Status postdebridement of foot today
Remains on Zosyn
--- NOTE | 2023-12-24 17:19 | W.SUR.POST ---
Addendum entered and electronically signed by Braulio Casey DPM 12/30/23 11:41:
Addendum to the surgery notes: An excisional debridement performed by using #15 blade , removed all necrotic skin and subcutaneous tissue from Rt foot.
Original Note:
Surgical Immediate Post Op
Note
Pre Op Diagnosis: Rt foot necrotic tissue with large fibrotic open wound
Post Op Diagnosis: Same as above
Procedure Performed: Rt foot debridement of eschar and bone resection form distal 4th and 5th metatarsals
Primary Surgeon: Dr. Casey
Secondary Surgeons: None
Anesthesia: MAC with local block
Estimated Blood Loss: 2cc's
Fluids: None
Drains/Shunts: None
Specimens/Cultures: Aerobic and anaerobic cultures and bone from 4th and 5th distal metatarsals
Doppler/Duplex/Angio (Y/N): N
Complications: None
Operative Findings: No deep tissue purulence noted, large of loss of soft tissue from Rt lateral foot post debridement
PT stable with intact vascular status to Rt foot and stable vital signs in PACU
[2023-12-24 17:30] LABS: Glucose - Point of Care 137 mg/dl (70-99)
[2023-12-24 17:34] LABS: C-Peptide 2.9 ng/mL (0.5-3.3)
[2023-12-24] MEDS: LIPITOR 80 MG PO (18:27)
[2023-12-24 22:14] LABS: Glucose - Point of Care 171 mg/dl (70-99)
[2023-12-24] MEDS: ROXICODONE 5 MG PO (22:49)
[2023-12-24] MEDS: TOPROL XL 25 MG PO (22:54)
[2023-12-24] MEDS: TYLENOL 1000 MG PO (22:54)
[2023-12-24] MEDS: LANTUS 0.0200000000000000004 UNITS SC (22:55)
[2023-12-24] MEDS: HEPARIN 5000 UNITS SC (22:59)
[2023-12-25 03:00] VITALS: BP 110/46
[2023-12-25] MEDS: TYLENOL PO (04:59)
[2023-12-25 06:00] VITALS: BMI 28.4
[2023-12-25 07:00] VITALS: BP 153/71
--- NOTE | 2023-12-25 08:11 | PN.DE.MGMTRT ---
Insulin Management
- -
12/25/2023: Diabetes Management F/U:
Patient admitted with Right fifth toe discoloration, open wound.
PMH: CAD(CABG 1981), CKD, CVA x2, HTN, Retinopathy, CHF and T2DM. A1C 9.2%, Cr 3.0 eGFR 18.59, was taking Lantus 18-20 units @ HS and Lispro 4 units AC. Patient states she was diagnosed with diabetes at age 12 and started insulin at age 13. She
states her A1C is greatly improved. She has a glucose monitor and tests daily.
Patient is awake, alert and oriented, on HD machine, able to discuss diabetes management.
POD # 18 s/p Right 5th toe amputation, POD #11 s/p tissue debridement R foot and amputation 4th toe.
POD # 1 s/p Rt foot debridement of eschar and bone resection form distal 4th and 5th metatarsals.
HD cath placed, HD started 12/16. Cr 3.5, eGFR 15.45 today.
Glucose range 137 to 175 yesterday, fasting 103 this AM.
Will continue 2 unit Lantus @ HS, with NovoLog 3 units AC.
Discussed with nurse. Will cont to follow and adjust insulin dose if necessary
Diabetes History
- -
Type of Diabetes: 2 requiring insulin
Pre-Admission Diabetes Regimen
12/24/23
04:46
Creatinine 3.5 H
Lab Results
Hemoglobin A1c 9.2 % (4.0-5.6) H 12/06/23 08:12
Insulin Pump Settings
IP Diabetes Regimen
12/24/23 12/24/23 12/24/23
04:46 11:31 17:29
Glucose 163 H
POC Glucose 169 H 137 H
12/24/23
22:14
Glucose
POC Glucose 171 H
Meal type: Lunch
Meal type: Breakfast
Amount consumed: 100%
Amount consumed: 100%
Patient Education
[2023-12-25 08:15] LABS: Hematocrit 24.5 % (37.0-47.0); Hemoglobin 7.7 g/dL (12.0-16.0); Mean Corp Hgb Conc. 31.4 g/dL (33.0-37.0); Mean Corpuscular Hgb 25.5 pg (27.0-31.0); Mean Corpuscular Volume 81.1 fL (81.0-99.0); Platelet Count 348 10^3/uL (130-400); Red Blood Cell Count 3.02 10^6/uL (4.20-5.40); Red Cell Dist. Width 25.7 % (11.5-14.5); White Blood Cell Count 11.3 10^3/uL (4.8-10.8)
[2023-12-25 08:25] LABS: Glucose - Point of Care 103 mg/dl (70-99)
[2023-12-25] MEDS: NOVOLOG FLEXPEN SC ×2 (08:51→12:02)
[2023-12-25] MEDS: NOVOLOG FLEXPEN-LOW RESISTANCE SC ×3 (08:51→17:23)
[2023-12-25] MEDS: RETACRIT 8000 UNITS IV (08:54)
[2023-12-25 10:02] LABS: ALT (SGPT) 17 U/L (0-35); AST (SGOT) 64 U/L (14-36); Albumin 2.9 g/dl (3.5-5.0); Alkaline Phosphatase 1172 U/L (38-126); Blood Urea Nitrogen 25 mg/dl (7-17); Calcium 8.8 mg/dl (8.4-10.2); Carbon Dioxide 24 mmol/L (22-30); Chloride 99 mmol/L (98-107); Estimated Creatinine Clearance 14 ml/min; Glucose 91 mg/dl (70-99); Potassium 3.9 mmol/L (3.5-5.1); Sodium 133 mmol/L (135-145); Total Bilirubin 0.5 mg/dl (0.2-1.3); Total Protein 6.9 g/dl (6.3-8.2); eGFR 10.58
[2023-12-25] MEDS: IMODIUM 2 MG PO (10:17)
[2023-12-25] MEDS: TYLENOL 1000 MG PO ×2 (10:20→21:06)
[2023-12-25] MEDS: HEPARIN 3900 UNITS INTRACATH (10:57)
[2023-12-25] MEDS: ZOSYN 50 IV (10:57)
[2023-12-25 11:00] VITALS: BP 170/76
[2023-12-25 11:25] LABS: Glucose - Point of Care 88 mg/dl (70-99)
--- NOTE | 2023-12-25 11:51 | W.PN.CD ---
Addendum entered and electronically signed by Evie Arteaga MD 12/25/23 12:05:
I saw and examined the patient.
The ASSET CARD CLERK's note was reviewed and I agree with the note.
Comment: She is doing well post op, just finished HD. RRR, lungs CTA. Would continue to titrate antihypertensives for bp control as needed. HD controlling volume. I will sing off.
Original Note:
Today's Communication / Plan
-
on HD, volume management per HD/nephrology
follow valve disease as an outpatient
Impression / Plan
-
Severe acute on chronic HFpEF, (PCWP 47 at 77 kg on 12/09/2023): improved
-Unclear dry weight.
-end-stage renal failure on dialysis with volume management per nephrology.
-Weight now 72.6 kg today, prior to HD.
pSVT:
-stable on telemetry w/o recurrence.
-continue metoprolol.
Mixed valvular heart disease:
-Moderate , moderate AR, mild/moderate MS
-Will likely need valve surgery in the future, if an appropriate candidate; will reevaluate as outpatient.
-Congenital heart surgery as a child, no records at [facility] available, multiple requests.
Right 5th toe osteomyelitis
-Amputation performed on 12/07/2023.
-Debridement 12/14/2023 and right foot debridement of eschar and bone resection distal 4th and 5th metatarsals 12/24/23.
-No cardiac complications detected from surgery.
Sepsis:
- in the setting of right 5th toe infection in a diabetic patient.
PAD:
-vascular surgery has been involved.
-s/p intravascular lithotripsy to diffuse right posterior tibial artery stenosis, right above-knee popliteal artery stenosis, and right proximal superficial femoral artery stenosis
Anemia:
-has had iron and blood this admit
-management per primary team
Type I vs 2 DM, uncontrolled, Hgba1c 9.6%, per primary => multiple complications
-Pt hopes not to take SGLT2-I in future.
-She thinks she has type II DM, we generally do not use SGLT2-I in type I DM
Prior CVA, refused LINQ
Guillain [place] syndrome, with chronic LLE weakness
Subjective:
Denies CP or SOB
DATA:
RHC 12/09/2023:
Weight (kg):77.1
PA (s/d/x mmHg): 99/31/54
PCWP (a/v/x mmHg): 5564/47
RV (s/x mmHg): 100/17
RA (a/v/x mmHg):
Echo 12/08/2023:
Left ventricle is small in size.
Hyperdynamic left ventricular systolic function.
Stage II diastolic dysfunction suggestive of abnormal relaxation and increased
filling pressures.
Dense mitral annular calcification.
Mild to moderate mitral stenosis (calcific in nature with the dense MAC. The
anterior MV leaflet moves normally).
Mild mitral regurgitation.
Thickened aortic valve with restricted leaflet motion.
Moderate aortic stenosis.
Moderate aortic regurgitation.
Mild tricuspid regurgitation.
Estimated PASP 60-65 mmHg.
No significant change since the prior study of 04/07/2023.
The nature of her congenital heart disease and congenital heart surgery at age
5 is unknown. She reports correction of a blockage near her aorta or aortic
valve.
Physical Exam
Vital Signs/Labs
Vital Signs
Temp Pulse Resp BP Pulse Ox
98.1 F 77 18 170/76 96
12/25/23 11:00 12/25/23 11:00 12/25/23 11:00 12/25/23 11:00 12/25/23 11:00
12/24/23 12/25/23 12/26/23
06:59 06:59 06:59
Actual Weight 72.178 kg 72.66 kg
12/25/23 07:27
12/25/23 07:27
PT 14.9 Sec (11.4-14.6) H 12/24/23 04:46
INR 1.17 12/24/23 04:46
APTT 55.5 Sec (23.4-35.0) H 12/24/23 04:46
Magnesium 2.0 mg/dl (1.6-2.3) 12/14/23 08:46
12/08/23
08:30
Wlg-L-[id number] Pept [id number]
Physical Exam
Constitutional: No acute distress
EENT: Anicteric and Moist mucous membranes
Cardiovascular: Rhythm & rate is regular
Respiratory: Respiratory effort normal and Lungs clear to auscul.
GI: Soft, Non tender and Normal bowel sounds
Neuro/Psych: AO x 3
Other: Skin (warm, dry)
Data Reviewed
-
Date of Service: December 25, 2023
Medical Decision Making: Reviewed Test Results
EKG: Tracing Personally Visualized and interpreted
Echo: Report Reviewed by me
Labs: Labs Reviewed by me
[2023-12-25] MEDS: PLAVIX 75 MG PO (12:01)
[2023-12-25] MEDS: ASPIR LOW (ENTERIC COATED) 81 MG PO (12:02)
[2023-12-25] MEDS: VISBIOME 1 CAP PO (12:02)
[2023-12-25] MEDS: HEPARIN SC (12:32)
--- NOTE | 2023-12-25 14:38 | W.PN.NEPH.HD ---
Assessment
-
- feeling well on HD
- tdc in place
Progress Note - Hemodialysis
-
Date of Service: December 25, 2023
Duration: 30 minutes and 3 hours
Potassium Bath: 3
Calcium Bath: 2.5
Opti-Dialyzer: 160
Ultrafiltration: Other
Blood Flow: 400
Dialysate Flow: 600
[2023-12-25 15:00] VITALS: BP 149/61
--- NOTE | 2023-12-25 15:20 | CM ---
Spoke with patient bedside.
s/p HD today.
PT/OT recommending skilled rehab.
Patient refusing skilled rehab, wants home.
Has 5 children at home between the ages of 6-27.
Son will be able to transport patient to HD, patient has a car.
Patient would like HD at [facility] (lives in [place]).
Continue would care and anbx.
Plan: home with VN, outpatient HD.
--- NOTE | 2023-12-25 16:46 | W.PN.HOSP.TC ---
Today's Communication/Plan
-
Dialysis
Resumed Plavix
Imodium helping with diarrhea
Assessment / Plan
Assessment / Plan
Physical Exam
General: Not in acute distress
HEENT: Normocephalic
Respiratory: Clear to Auscultation
Cardiac: Regular Rhythm and S1/S2
GI: Soft, Nontender and Nondistended
Musculoskeletal: Other (Right lower extremity dressing in place )
Neuro: Awake, Alert, Oriented and No Motor Deficits
Psych: Calm
Lower right foot MRI 12/06
1. 2.5 cm ABSCESS dorsal to the right 5th MTP joint.
2. SOFT TISSUE EMPHYSEMA tracking around the proximal phalanx of the right 5th toe.
3. SEVERE CELLULITIS throughout the right forefoot.
4. No MRI evidence for acute osteomyelitis.
5. Diffuse signal abnormality throughout the muscles of the right foot (either severe diffuse myositis or acute on chronic muscle denervation secondary to diabetes mellitus).
Lower right foot MRI 12/13
1. PROBABLE ACUTE OSTEOMYELITIS in the right 5th metatarsal head and proximal phalanx of the 4th toe.
2. Large 5.0 cm region of nonenhancing soft tissue necrosis in the lateral right forefoot.
3. No MRI evidence for rim-enhancing enhancing fluid collection to suggest an abscess.
4. Recent amputation of the 5th toe.
5. Severe acute myositis or muscle denervation throughout the right foot.
6. Severe diffuse cellulitis.
US abd
IMPRESSION:
1. Right lower extremity: IVANIA 1.08 within normal limits. TBI mildly reduced 0.60. Eccentric wall calcification noted in vessels. Proximal superficial femoral artery velocity elevation of 357 cm/s with velocity ratio of 2.22 consistent with at least
50-74% stenosis. Monophasic waveforms noted distal to the stenosis.
2. Left lower extremity: IVANIA 1.31 within normal limits. TBI minimally reduced 0.67. Eccentric wall calcification noted in vessels. Multiphasic waveforms throughout lower extremity arteries with distal superficial femoral artery velocity elevation
245 cm/s and velocity ratio of 2.13 consistent with likely 50-74% stenosis. Multiphasic waveforms are maintained distal to the stenosis. Continuous Doppler waverforms at the dorsalis pedis and posterior tibial arteries also remain multiphasic.

1. Right Diabetic foot infection
s/p 5th toe amputation POD #4 status post diagnostic arteriogram, intravascular lithotripsy of the posterior tibial artery and proximal SFA, balloon angioplasty and nitroglycerin injection of posterior tibial artery on 12/21/23
Right foot cellulitis
-Patient presented for initial right foot fifth dual infection/cellulitis
-MRI of the foot showing soft tissue emphysema/cellulitis and abscess of MTP joint of fifth toe
-Underwent fifth toe amputation by podiatry
-Intraoperative culture growing MSSA/Streptococcus agalactia. Intraoperative bone margin pathology is negative for any osteomyelitis
-Patient started to having new worsening leukocytosis and a repeat MRI on 12/13 showing large soft tissue necrosis area
-Patient underwent debridement of right foot on 12/13 evening by podiatry, repeat wound culture growing bacteriods.
-Revision with 4th toe amp (12/14/23)
-Antibiotic escalated to Zosyn again from [facility] -- continue Zosyn
-Patient at high risk of limb loss with poor vasculature, which is difficult in turn to be intervened upon due to ongoing renal failure/contrast exposure risk.
-Started patient on Plavix on 12/22/23 in addition to Aspirin, as recommended by vascular surgery
-As per vascular surgery, patient has extensive small vessel disease in the plantar distribution and may be best served with a transmetatarsal amputation at this point given the appearance of her right foot wound, but podiatry performed debridement
of necrotic tissue from the right lateral foot and resection of the distal fourth and fifth metatarsal bones from the right foot in an attempt at salvage, on 12/25/23.
2. MARYLOU with CKD stage IV
AGAP metabolic acidosis -resolved
Proteinuria
-cr improved to 1.8 with Bumex drip, but then trended up again
-Urine protein/cr ratio of 0.6
-Continue dialysis as per nephrology
-RHC on 12/08 showing PCWP of 47mmHg and was started on Bumex drip, renal function did improve but declined again later .
-Patient started on hemodialysis on 12/16 and able to tolerate without issues - continue dialysis as per nephrology
-Likely will need tunneled dialysis catheter
3. PAD
-Significant arterial disease with possible suggestive of bilateral proximal superficial femoral artery stenosis of 50 to 74%
-Vascular surgery involved in care and patient currently not a candidate for angiography due to renal failure
-Status post diagnostic arteriogram, intravascular lithotripsy of the posterior tibial artery and proximal SFA, balloon angioplasty and nitroglycerin injection of posterior tibial artery on 12/21/23
-Started DAPT -- resumed Plavix today as okay with podiatry
-Aggressive control of arterial disease risk factors
4. Acute on chronic diastolic congestive heart failure
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
-Patient weight down trended with Bumex drip, some repeat upward trend on weight
-Currently diuretics being held with worsening renal failure
-Cardiology following and help appreciated
5. Diabetes mellitus
Hypoglycemia
-presumed Type I as diagnosed age 12.
-Diabetes SOCIAL WORK MSW consulted, recommendations appreciated
-Insulin being adjusted as appropriate
6. Iron def anemia
Acute blood loss anemia from post op
-Ferritin of 74.6 with saturation of 12% and acute phase suggestive of iron deficiency anemia
-Got 7 doses of IV Ferrlecit.
-Patient has significant blood loss from surgical site debridement required multiple dressing and localized thrombin rx
-Required total 3 U prbc thic visit
7. h/o of CVA
Legally blind in right eye
- Multiple prior CVAs. LINQ recorder recommended; however, patient declined.
- Continue daily ASA. Will hold Plavix acutely in the event that surgical intervention is needed.
8. pSVT
-Continue metoprolol succinate qhs 25 mg
9. Diarrhea -- likely antibiotic-associated diarrhea -- IMPROVED
-Stool studies ordered -- C. diff negative
-Probiotic
-GI consulted, recommendations appreciated
-Continue prn Imodium
Guillain [place] syndrome, with chronic LLE weakness
Hyponatremia
Congenital heart surgery as a child, no records available, multiple requests
Moderate /AR
Mild to mod MS
-Will likely need valve surgery in the future, if an appropriate candidate; reevaluate as outpatient.
DVT Prophylaxis: Heparin Subq
Code Status: Full
12/14 Dr. Haq discussed patient prognosis and complexity of case with son over the phone. All questions answered. Dr. Haq specified to patient and son that if renal function did not improve then patient will require dialysis
12/16 patient continued to remain hesitant to initiate dialysis. Dr. Haq was hopeful that patient would have some renal function recovery although after with discussion with nephro it is clear that patient should start on hemodialysis. This was
discussed at length with patient and patient remained adamant about not being started on dialysis. Patient hesitantly agreed after repeated discussion by Dr. Haq and scrap separator.
Patient's son was also aware about this.
Anticipated Discharge: > 48 hours
Subjective/Interval History
-
Date of Service: December 25, 2023
Patient was seen and examined. She was getting dialysis and denied any new symptoms or complaints at the time she was seen.
Objective Data
-
Labs:
Laboratory Results
12/25/23
07:27
WBC 11.3 H
Hgb 7.7 L
Hct 24.5 L
Plt Count 348
Sodium 133 L
Potassium 3.9
Chloride 99
Carbon Dioxide 24
BUN 25 H
Creatinine 4.8 H*
Glucose 91
Calcium 8.8
Total Bilirubin 0.5
AST 64 H
ALT 17
Alkaline Phosphatase 1172 H
Vital Signs:
Vital Signs
Temp Pulse Resp BP Pulse Ox
97.9 F 79 18 149/61 99
12/25/23 15:00 12/25/23 15:00 12/25/23 15:00 12/25/23 15:00 12/25/23 15:00
I&O
12/24/23 12/25/23 12/26/23
06:59 06:59 06:59
Intake Total 1010 / 1010 590 / 590
Output Total 0 / 0
Balance 1010 / 1010 590 / 590
[2023-12-25 16:49] LABS: Glucose - Point of Care 99 mg/dl (70-99)
--- NOTE | 2023-12-25 16:58 | W.PN.ID1 ---
Date of Service
Date of Service: December 25, 2023
Today's Communication
Infected bone removed in the OR 12/23, necrotic tissue debrided
stop zosyn, short course of kefelx 500 mg PO qday x7 more days
follow up with podiatry
Assessment / Plan
Diabetic Foot Infection
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
- revision with 4th toe amp (12/14/23)
PAD
- lithotripsy/angiography 12/20
DM1 - uncontrolled (HbA1c = 9.2 [12/06/23] )
CKD4
- now on HD
Congenital Heart disease
/AR
Pulm HTN
Hx Guillain [place] syndrome, with chronic LLE weakness
Recommendations:
Infected bone removed in the OR 12/23, necrotic tissue debrided
stop zosyn, short course of kefelx 500 mg PO qday x7 more days
follow up with podiatry
����������������������������������������������������������
Chief Complaint
-: Leukocytosis and Other (Right foot diabetic foot infection)
Subjective / Review of Systems
afebrile
bp stable
minimal leukocytosis
cr 4.8
K 3.9
12/23 tissue culture no growth
less diarrhea
Vital Signs / Physical Exam
Vital Signs
Vital Signs
Temp Pulse Resp BP Pulse Ox
97.9 F 79 18 149/61 99
12/25/23 15:00 12/25/23 15:00 12/25/23 15:00 12/25/23 15:00 12/25/23 15:00
Physical Exam
Constitutional: No Acute Distress
Cardiovascular: Regular Rate and S1/S2; Negative Murmur or Rub
Pulmonary: Clear and Symmetric; Negative Wheezes or Rales
Gastrointestinal: Soft, Non Tender, Non Distended and Normal Bowel Sounds
Skin: Warm and Dry; Negative Rash or Jaundice
Objective Data
Lab Data
Lab Results
12/25/23 07:27
12/25/23 07:27
ESR 105 mm/hour (0-20) H 12/06/23 00:52
PT 14.9 Sec (11.4-14.6) H 12/24/23 04:46
INR 1.17 12/24/23 04:46
APTT 55.5 Sec (23.4-35.0) H 12/24/23 04:46
Estimated Creat Clear 14 ml/min 12/25/23 07:27
Lactic Acid 1.2 mmol/L (0.7-2.0) 12/06/23 00:52
Total Bilirubin 0.5 mg/dl (0.2-1.3) 12/25/23 07:27
AST 64 U/L (14-36) H 12/25/23 07:27
ALT 17 U/L (0-35) 12/25/23 07:27
Alkaline Phosphatase 1172 U/L (38-126) H 12/25/23 07:27
C-Reactive Protein 223.70 mg/L (0.0-10.00) H 12/06/23 00:52
Most recent labs reviewed.
Micro Results:
12/24/23 17:59 Anaerobic Culture - Preliminary
Bone Culture pending. Anaerobic cultures are examined after 3
days incubation. Additional information to follow.
12/24/23 17:59 Tissue Culture - Preliminary
Foot - Right NO GROWTH
Gram Stain - Preliminary
12/22/23 11:32 Salmonella/Shigella Culture - Final
Feces/Stool No Salmonella, Shigella, Aeromonas or Plesiomonas species
isolated.
Campylobacter Culture - Final
No Campylobacter species isolated.
Shiga Toxin Test - Final
No E. coli Shiga Toxin 1 or 2 detected.
Stool Leukocytes - Final
12/22/23 11:32 C. difficile GDH Antigen & Toxins - Final
Feces/Stool Negative for toxigenic C.difficile
12/14/23 20:41 Wound Culture - Final
Foot - Right No growth
Gram Stain - Final
12/14/23 20:41 Anaerobic Culture - Final
Foot - Right Bacteroides thetaiotaomicrom
12/07/23 16:14 Wound Culture - Final
Foot - Right S aureus-Methicillin Sensitive
Streptococcus agalactiae
Gram Stain - Final
12/07/23 16:14 Anaerobic Culture - Final
Foot - Right
12/06/23 03:26 Blood Culture - Final
Blood/Venous No Growth - Final Report
12/06/23 00:51 Blood Culture - Final
Blood/Venous No Growth - Final Report
12/06/23 22:32 MRSA Screen - Final
Nose No Methicillin Resistant Staphylococcus aureus isolated.
[2023-12-25] MEDS: NOVOLOG FLEXPEN 3 UNITS SC (17:22)
[2023-12-25] MEDS: KEFLEX 500 MG PO (17:29)
[2023-12-25] MEDS: LIPITOR 80 MG PO (17:29)
[2023-12-25] MEDS: ZOSYN IV (17:42)
--- NOTE | 2023-12-25 17:57 | W.PN.POD ---
Addendum entered and electronically signed by Braulio Casey DPM 12/25/23 18:19:
Given patients h/o severe limb threatening infection, she may need care home abx to control infection and help healing process.
Original Note:
Today's Communication
Today's Communication
podiatry will cont to monitor her Rt foot for any worsening .
Assessment / Plan
-
Rt foot S/p 5th toe amputation 12/07/2023
S/P Rt foot # 2 on 12/14/2023
S/P Rt foot debridement #3 on 12/24/2023 debridement of all necrotic tissue and Rt 4th and 5th distal metatarsals resection .
CKD - on HD now
Diabetic small vessel disease - Patient is S/P Angiogram with intravascular lithotripsy of post tibial artery and SFA, noted t have severe small vessel disease in Post tibial in the plantar fo distribution
PAD
Diabetic neuropathy.
Plan ; Changed dressings to Rt foot , applied compressive dressings to Rt foot .
WbC count down to 11
IV abx per ID
No wt bearing today on Rt foot, commode to bedside
Pt to use wheel chair to stay off completely, pt agreeable to do so
pending bone cultures from Rt foot
Subjective
Objective
Temp Pulse Resp BP Pulse Ox
97.9 F 79 18 149/61 99
12/25/23 15:00 12/25/23 15:00 12/25/23 15:00 12/25/23 15:00 12/25/23 15:00
12/25/23 07:27
12/25/23 07:27
Vital Signs and Lab results were review
Rt foot palpable Dp and dopplerable PT pedal pulses
Rt foot decreased edema .
Rt foot surgical debrided site minimal bloody oozing, no new necrosis, no foul odor noted.
no crepitus felt, no signs of any abscess felt, no red streaking up the leg
[2023-12-25 19:50] VITALS: BP 141/68
[2023-12-25] MEDS: ROXICODONE 5 MG PO (20:53)
[2023-12-25] MEDS: HEPARIN 5000 UNITS SC (21:06)
[2023-12-25 21:13] LABS: Glucose - Point of Care 77 mg/dl (70-99)
[2023-12-25] MEDS: TOPROL XL 25 MG PO (21:41)
[2023-12-25] MEDS: LANTUS SC (22:59)
--- NOTE | 2023-12-25 23:01 | PTCARENOTE ---
Blood sugar 77. Pt refused Lantus. Pt reported 'I didn't eat much today.' Snack provided. Pt educated on Lantus and long acting insulin. Pt refused Lantus. Notified NILDA Garibay. Plan of care ongoing.
[2023-12-25 23:38] VITALS: BP 132/63
[2023-12-26 03:10] VITALS: BP 150/66
[2023-12-26] MEDS: TYLENOL PO ×2 (05:13→14:11)
[2023-12-26 06:00] VITALS: BMI 27.5
[2023-12-26 07:00] VITALS: BP 171/76
[2023-12-26 07:34] LABS: Glucose - Point of Care 102 mg/dl (70-99)
[2023-12-26] MEDS: NOVOLOG FLEXPEN-LOW RESISTANCE SC ×3 (08:11→17:31)
[2023-12-26] MEDS: NOVOLOG FLEXPEN 3 UNITS SC ×2 (08:38→17:32)
[2023-12-26] MEDS: HEPARIN 5000 UNITS SC (08:38)
[2023-12-26] MEDS: PLAVIX 75 MG PO (08:38)
[2023-12-26] MEDS: VISBIOME 1 CAP PO (08:38)
[2023-12-26] MEDS: ASPIR LOW (ENTERIC COATED) 81 MG PO (08:38)
[2023-12-26 09:26] LABS: % Basophils 0.9 % (0-2); % Eosinophils 0.8 % (0-6); % Immature Granulocytes 0.7 % (0-0.5); % Lymphocytes 9.5 % (20.5-51.1); % Monocytes 8.6 % (1.7-9.3); % Neutrophils 79.5 % (42.2-75.2); Absolute Basophils 0.1 10^3/uL (0-0.2); Absolute Eosinophils 0.1 10^3/uL (0-0.7); Absolute Immature Granulocytes 0.1 10^3/uL (0-0.05); Absolute Lymphocytes 1.2 10^3/uL (1.2-3.4); Absolute Monocytes 1.1 10^3/uL (0.1-0.6); Absolute Neutrophils 10.2 10^3/uL (1.4-6.5); Hematocrit 27.5 % (37.0-47.0); Hemoglobin 8.3 g/dL (12.0-16.0); Mean Corp Hgb Conc. 30.2 g/dL (33.0-37.0); Mean Corpuscular Hgb 25.4 pg (27.0-31.0); Mean Corpuscular Volume 84.1 fL (81.0-99.0); Mean Platelet Volume 9.1 fL (7.4-10.4); Nucleated Red Blood Cells % 0.2 %; Platelet Count 404 10^3/uL (130-400); Red Blood Cell Count 3.27 10^6/uL (4.20-5.40); Red Cell Dist. Width 25.8 % (11.5-14.5); White Blood Cell Count 12.8 10^3/uL (4.8-10.8)
[2023-12-26 09:40] LABS: ALT (SGPT) 17 U/L (0-35); AST (SGOT) 76 U/L (14-36); Carbon Dioxide 24 mmol/L (22-30); Estimated Creatinine Clearance 18 ml/min; Glucose 111 mg/dl (70-99); eGFR 14.94
[2023-12-26 09:50] LABS: Albumin 3.2 g/dl (3.5-5.0); Alkaline Phosphatase 962 U/L (38-126); Blood Urea Nitrogen 17 mg/dl (7-17); Chloride 97 mmol/L (98-107); Potassium 4.2 mmol/L (3.5-5.1); Sodium 134 mmol/L (135-145); Total Bilirubin 0.6 mg/dl (0.2-1.3); Total Protein 7.6 g/dl (6.3-8.2)
[2023-12-26 11:00] VITALS: BP 175/74
[2023-12-26 11:52] LABS: Glucose - Point of Care 111 mg/dl (70-99)
[2023-12-26] MEDS: NOVOLOG FLEXPEN SC (12:19)
--- NOTE | 2023-12-26 12:26 | W.PN.POD ---
Addendum entered and electronically signed by Braulio Casey DPM 12/26/23 12:40:
Patient can wt bear to Rt heel and use wheel chair to out of bed.
Addendum entered and electronically signed by Braulio Casey DPM 12/26/23 12:33:
Given patients h/o severe limb threatening infection, she may need long term care social worker abx to control infection and help healing process.
Original Note:
Today's Communication
Today's Communication
Patient stable from podiatry , she will follow up in my office for all post op care
Assessment / Plan
-
Rt foot S/p 5th toe amputation 12/07/2023
S/P Rt foot # 2 on 12/14/2023
S/P Rt foot debridement #3 on 12/24/2023 debridement of all necrotic tissue and Rt 4th and 5th distal metatarsals resection .
CKD - on HD now
Diabetic small vessel disease - Patient is S/P Angiogram with intravascular lithotripsy of post tibial artery and SFA, noted t have severe small vessel disease in Post tibial in the plantar fo distribution
PAD
Diabetic neuropathy.
Plan ; Changed dressings to Rt foot , applied compressive dressings to Rt foot .
WbC count down to 11
abx per ID
No wt bearing today on Rt foot, commode to bedside
Pt to use wheel chair to stay off completely, pt agreeable to do so
pending bone cultures from Rt foot
Subjective
Chief Complaint
Rt diabetic foot infection with gangrene
Subjective
Patient seen at bedside, in no acute distress, awake, alert, oriented, no SOB or chest pain, she denies any new pedal complaints . Denies any Rt foot pain, no calf pain no fever, chills.
Objective
Temp Pulse Resp BP Pulse Ox
98.1 F 80 14 175/74 98
12/26/23 11:00 12/26/23 11:00 12/26/23 11:00 12/26/23 11:00 12/26/23 11:00
12/26/23 08:49
12/26/23 08:49
Vital Signs and Lab results were reviewed.
Rt foot palpable Dp and dopplerable PT pedal pulses
Rt foot decreased edema .
Rt foot surgical debrided site with no bleeding, no drainage/no purulence no new necrosis, no foul odor noted. No exposed bone
no crepitus felt, no signs of any abscess felt, no red streaking up the leg
--- NOTE | 2023-12-26 14:27 | W.PN.HOSP.TC ---
Today's Communication/Plan
-
Continue antibiotics
Appreciate ID, nephrology, podiatry and vascular
Patient with no new symptoms or complaints
Assessment / Plan
Assessment / Plan
Physical Exam
General: Not in acute distress
HEENT: Normocephalic
Respiratory: Clear to Auscultation
Cardiac: Regular Rhythm and S1/S2
GI: Soft, Nontender and Nondistended
Musculoskeletal: Other (Right lower extremity dressing in place )
Neuro: Awake, Alert, Oriented and No Motor Deficits
Psych: Calm
Lower right foot MRI 12/06
1. 2.5 cm ABSCESS dorsal to the right 5th MTP joint.
2. SOFT TISSUE EMPHYSEMA tracking around the proximal phalanx of the right 5th toe.
3. SEVERE CELLULITIS throughout the right forefoot.
4. No MRI evidence for acute osteomyelitis.
5. Diffuse signal abnormality throughout the muscles of the right foot (either severe diffuse myositis or acute on chronic muscle denervation secondary to diabetes mellitus).
Lower right foot MRI 12/13
1. PROBABLE ACUTE OSTEOMYELITIS in the right 5th metatarsal head and proximal phalanx of the 4th toe.
2. Large 5.0 cm region of nonenhancing soft tissue necrosis in the lateral right forefoot.
3. No MRI evidence for rim-enhancing enhancing fluid collection to suggest an abscess.
4. Recent amputation of the 5th toe.
5. Severe acute myositis or muscle denervation throughout the right foot.
6. Severe diffuse cellulitis.
US abd
IMPRESSION:
1. Right lower extremity: IVANIA 1.08 within normal limits. TBI mildly reduced 0.60. Eccentric wall calcification noted in vessels. Proximal superficial femoral artery velocity elevation of 357 cm/s with velocity ratio of 2.22 consistent with at least
50-74% stenosis. Monophasic waveforms noted distal to the stenosis.
2. Left lower extremity: IVANIA 1.31 within normal limits. TBI minimally reduced 0.67. Eccentric wall calcification noted in vessels. Multiphasic waveforms throughout lower extremity arteries with distal superficial femoral artery velocity elevation
245 cm/s and velocity ratio of 2.13 consistent with likely 50-74% stenosis. Multiphasic waveforms are maintained distal to the stenosis. Continuous Doppler waverforms at the dorsalis pedis and posterior tibial arteries also remain multiphasic.

1. Right Diabetic foot infection
s/p 5th toe amputation POD #4 status post diagnostic arteriogram, intravascular lithotripsy of the posterior tibial artery and proximal SFA, balloon angioplasty and nitroglycerin injection of posterior tibial artery on 12/21/23
Right foot cellulitis
-Patient presented for initial right foot fifth dual infection/cellulitis
-MRI of the foot showing soft tissue emphysema/cellulitis and abscess of MTP joint of fifth toe
-Underwent fifth toe amputation by podiatry
-Intraoperative culture growing MSSA/Streptococcus agalactia. Intraoperative bone margin pathology is negative for any osteomyelitis
-Patient started to having new worsening leukocytosis and a repeat MRI on 12/13 showing large soft tissue necrosis area
-Patient underwent debridement of right foot on 12/13 evening by podiatry, repeat wound culture growing bacteriods.
-Revision with 4th toe amp (12/14/23)
-Antibiotic escalated to Zosyn again from [facility] -- continue Zosyn
-Given patients history severe limb threatening infection, she may need nursing home abx to control infection and help healing process.
-Patient at high risk of limb loss with poor vasculature, which is difficult in turn to be intervened upon due to ongoing renal failure/contrast exposure risk.
-Started patient on Plavix on 12/22/23 in addition to Aspirin, as recommended by vascular surgery
-As per vascular surgery, patient has extensive small vessel disease in the plantar distribution and may be best served with a transmetatarsal amputation at this point given the appearance of her right foot wound, but podiatry performed debridement
of necrotic tissue from the right lateral foot and resection of the distal fourth and fifth metatarsal bones from the right foot in an attempt at salvage, on 12/25/23.
-Patient can weight bear to right heel and use wheel chair to out of bed.
2. MARYLOU with CKD stage IV
AGAP metabolic acidosis -resolved
Proteinuria
-cr improved to 1.8 with Bumex drip, but then trended up again
-Urine protein/cr ratio of 0.6
-Continue dialysis as per nephrology
-RHC on 12/08 showing PCWP of 47mmHg and was started on Bumex drip, renal function did improve but declined again later .
-Patient started on hemodialysis on 12/16 and able to tolerate without issues - continue dialysis as per nephrology
-Likely will need tunneled dialysis catheter
3. PAD
-Significant arterial disease with possible suggestive of bilateral proximal superficial femoral artery stenosis of 50 to 74%
-Vascular surgery involved in care and patient currently not a candidate for angiography due to renal failure
-Status post diagnostic arteriogram, intravascular lithotripsy of the posterior tibial artery and proximal SFA, balloon angioplasty and nitroglycerin injection of posterior tibial artery on 12/21/23
-Continue DAPT
-Aggressive control of arterial disease risk factors
4. Acute on chronic diastolic congestive heart failure
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
-Patient weight down trended with Bumex drip, some repeat upward trend on weight
-Currently diuretics being held with worsening renal failure
-Cardiology following and help appreciated
5. Diabetes mellitus
Hypoglycemia
-presumed Type I as diagnosed age 12.
-Diabetes CCNP consulted, recommendations appreciated
-Insulin being adjusted as appropriate
6. Iron def anemia
Acute blood loss anemia from post op
-Ferritin of 74.6 with saturation of 12% and acute phase suggestive of iron deficiency anemia
-Got 7 doses of IV Ferrlecit.
-Patient has significant blood loss from surgical site debridement required multiple dressing and localized thrombin rx
-Required total 3 U prbc thic visit
7. h/o of CVA
Legally blind in right eye
- Multiple prior CVAs. LINQ recorder recommended; however, patient declined.
- Continue daily ASA. Will hold Plavix acutely in the event that surgical intervention is needed.
8. pSVT
-Continue metoprolol succinate qhs 25 mg
9. Diarrhea -- likely antibiotic-associated diarrhea -- RESOLVED
-Stool studies ordered -- C. diff negative
-Probiotic
-GI consulted, recommendations appreciated
-Continue prn Imodium
Guillain [place] syndrome, with chronic LLE weakness
Hyponatremia
Congenital heart surgery as a child, no records available, multiple requests
Moderate /AR
Mild to mod MS
-Will likely need valve surgery in the future, if an appropriate candidate; reevaluate as outpatient.
DVT Prophylaxis: Heparin Subq
Code Status: Full
12/14 Dr. Haq discussed patient prognosis and complexity of case with son over the phone. All questions answered. Dr. Haq specified to patient and son that if renal function did not improve then patient will require dialysis
12/16 patient continued to remain hesitant to initiate dialysis. Dr. Haq was hopeful that patient would have some renal function recovery although after with discussion with nephro it is clear that patient should start on hemodialysis. This was
discussed at length with patient and patient remained adamant about not being started on dialysis. Patient hesitantly agreed after repeated discussion by Dr. Haq and high school biology teacher.
Patient's son was also aware about this.
Anticipated Discharge: > 48 hours
Subjective/Interval History
-
Date of Service: December 26, 2023
Patient was seen and examined. She denied any new symptoms or complaints.
Objective Data
-
Labs:
Laboratory Results
12/26/23
08:49
WBC 12.8 H
Hgb 8.3 L
Hct 27.5 L
Plt Count 404 H
Sodium 134 L
Potassium 4.2
Chloride 97 L
Carbon Dioxide 24
BUN 17
Creatinine 3.6 H
Glucose 111 H
Calcium 9.0
Total Bilirubin 0.6
AST 76 H
ALT 17
Alkaline Phosphatase 962 H
Vital Signs:
Vital Signs
Temp Pulse Resp BP Pulse Ox
98.1 F 80 14 175/74 98
12/26/23 11:00 12/26/23 11:00 12/26/23 11:00 12/26/23 11:00 12/26/23 11:00
I&O
12/25/23 12/26/23 12/27/23
06:59 06:59 06:59
Intake Total 590 / 590 1050 / 1050
Balance 590 / 590 1050 / 1050
[2023-12-26] MEDS: TYLENOL 1000 MG PO ×2 (14:56→19:55)
[2023-12-26 15:00] VITALS: BP 166/69
[2023-12-26] MEDS: KEFLEX 500 MG PO ×2 (17:27→17:30)
[2023-12-26] MEDS: LIPITOR 80 MG PO ×2 (17:27→17:31)
[2023-12-26 17:37] LABS: Glucose - Point of Care 93 mg/dl (70-99)
[2023-12-26 19:40] VITALS: BP 120/55
[2023-12-26] MEDS: IMODIUM 2 MG PO (19:54)
[2023-12-26] MEDS: ROXICODONE 5 MG PO (19:54)
[2023-12-26] MEDS: HEPARIN SC (20:04)
[2023-12-26 21:56] LABS: Glucose - Point of Care 120 mg/dl (70-99)
[2023-12-26] MEDS: TOPROL XL 25 MG PO (22:17)
[2023-12-26] MEDS: LANTUS SC ×2 (22:17→22:19)
[2023-12-26 22:56] VITALS: BP 100/61
[2023-12-27 03:55] VITALS: BP 160/75
[2023-12-27 04:18] VITALS: BMI 27.5
[2023-12-27] MEDS: TYLENOL 1000 MG PO ×3 (04:48→21:53)
[2023-12-27] MEDS: SANTYL OINTMENT 1 APPLIC TOPICAL (04:49)
[2023-12-27 06:53] LABS: Glucose - Point of Care 108 mg/dl (70-99)
[2023-12-27 07:22] VITALS: BP 149/61
[2023-12-27] MEDS: NOVOLOG FLEXPEN-LOW RESISTANCE SC ×4 (08:08→17:30)
[2023-12-27] MEDS: ASPIR LOW (ENTERIC COATED) 81 MG PO (08:11)
[2023-12-27] MEDS: PLAVIX 75 MG PO (08:11)
[2023-12-27] MEDS: VISBIOME 1 CAP PO (08:11)
[2023-12-27] MEDS: HEPARIN SC ×2 (09:36→22:21)
[2023-12-27] MEDS: NOVOLOG FLEXPEN SC ×3 (09:36→12:47)
[2023-12-27] MEDS: AFRIN NASAL SPRAY 1 SPRAYS NASAL (09:36)
--- NOTE | 2023-12-27 10:39 | W.PN.HOSP.TC ---
Today's Communication/Plan
-
Physiatry consulted -- discharge planning, [facility] eval
Assessment / Plan
Assessment / Plan
Physical Exam
General: Not in acute distress
HEENT: Normocephalic
Respiratory: Clear to Auscultation
Cardiac: Regular Rhythm and S1/S2
GI: Soft, Nontender and Nondistended
Musculoskeletal: Other (Right lower extremity dressing in place )
Neuro: Awake, Alert, Oriented and No Motor Deficits
Psych: Calm
Lower right foot MRI 12/06
1. 2.5 cm ABSCESS dorsal to the right 5th MTP joint.
2. SOFT TISSUE EMPHYSEMA tracking around the proximal phalanx of the right 5th toe.
3. SEVERE CELLULITIS throughout the right forefoot.
4. No MRI evidence for acute osteomyelitis.
5. Diffuse signal abnormality throughout the muscles of the right foot (either severe diffuse myositis or acute on chronic muscle denervation secondary to diabetes mellitus).
Lower right foot MRI 12/13
1. PROBABLE ACUTE OSTEOMYELITIS in the right 5th metatarsal head and proximal phalanx of the 4th toe.
2. Large 5.0 cm region of nonenhancing soft tissue necrosis in the lateral right forefoot.
3. No MRI evidence for rim-enhancing enhancing fluid collection to suggest an abscess.
4. Recent amputation of the 5th toe.
5. Severe acute myositis or muscle denervation throughout the right foot.
6. Severe diffuse cellulitis.
US abd
IMPRESSION:
1. Right lower extremity: IVANIA 1.08 within normal limits. TBI mildly reduced 0.60. Eccentric wall calcification noted in vessels. Proximal superficial femoral artery velocity elevation of 357 cm/s with velocity ratio of 2.22 consistent with at least
50-74% stenosis. Monophasic waveforms noted distal to the stenosis.
2. Left lower extremity: IVANIA 1.31 within normal limits. TBI minimally reduced 0.67. Eccentric wall calcification noted in vessels. Multiphasic waveforms throughout lower extremity arteries with distal superficial femoral artery velocity elevation
245 cm/s and velocity ratio of 2.13 consistent with likely 50-74% stenosis. Multiphasic waveforms are maintained distal to the stenosis. Continuous Doppler waverforms at the dorsalis pedis and posterior tibial arteries also remain multiphasic.

1. Right Diabetic foot infection
s/p 5th toe amputation POD #4 status post diagnostic arteriogram, intravascular lithotripsy of the posterior tibial artery and proximal SFA, balloon angioplasty and nitroglycerin injection of posterior tibial artery on 12/21/23
Right foot cellulitis
-Patient presented for initial right foot fifth dual infection/cellulitis
-MRI of the foot showing soft tissue emphysema/cellulitis and abscess of MTP joint of fifth toe
-Underwent fifth toe amputation by podiatry
-Intraoperative culture growing MSSA/Streptococcus agalactia. Intraoperative bone margin pathology is negative for any osteomyelitis
-Patient started to having new worsening leukocytosis and a repeat MRI on 12/13 showing large soft tissue necrosis area
-Patient underwent debridement of right foot on 12/13 evening by podiatry, repeat wound culture growing bacteriods.
-Revision with 4th toe amp (12/14/23)
-Antibiotic escalated to Zosyn again from [facility] -- status post Zosyn
-Keflex 500 mg PO qday through 01/01/24
-Given patients history severe limb threatening infection, she may need electric organ assembler and checker abx to control infection and help healing process.
-Patient at high risk of limb loss with poor vasculature, which is difficult in turn to be intervened upon due to ongoing renal failure/contrast exposure risk.
-Started patient on Plavix on 12/22/23 in addition to Aspirin, as recommended by vascular surgery
-As per vascular surgery, patient has extensive small vessel disease in the plantar distribution and may be best served with a transmetatarsal amputation at this point given the appearance of her right foot wound, but podiatry performed debridement
of necrotic tissue from the right lateral foot and resection of the distal fourth and fifth metatarsal bones from the right foot in an attempt at salvage, on 12/25/23.
-Patient can weight bear to right heel and use wheel chair to out of bed.
2. MARYLOU with CKD stage IV
AGAP metabolic acidosis -resolved
Proteinuria
-cr improved to 1.8 with Bumex drip, but then trended up again
-Urine protein/cr ratio of 0.6
-Continue dialysis as per nephrology
-RHC on 12/08 showing PCWP of 47mmHg and was started on Bumex drip, renal function did improve but declined again later .
-Patient started on hemodialysis on 12/16 and able to tolerate without issues - continue dialysis as per nephrology
-Likely will need tunneled dialysis catheter
3. PAD
-Significant arterial disease with possible suggestive of bilateral proximal superficial femoral artery stenosis of 50 to 74%
-Vascular surgery involved in care and patient currently not a candidate for angiography due to renal failure
-Status post diagnostic arteriogram, intravascular lithotripsy of the posterior tibial artery and proximal SFA, balloon angioplasty and nitroglycerin injection of posterior tibial artery on 12/21/23
-Continue DAPT
-Aggressive control of arterial disease risk factors
4. Acute on chronic diastolic congestive heart failure
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
-Patient weight down trended with Bumex drip, some repeat upward trend on weight
-Currently diuretics being held with worsening renal failure
-Cardiology following and help appreciated
5. Diabetes mellitus
Hypoglycemia
-presumed Type I as diagnosed age 12.
-Diabetes STACK YIELD ENGINEER consulted, recommendations appreciated
-Insulin being adjusted as appropriate
6. Iron def anemia
Acute blood loss anemia from post op
-Ferritin of 74.6 with saturation of 12% and acute phase suggestive of iron deficiency anemia
-Got 7 doses of IV Ferrlecit.
-Patient has significant blood loss from surgical site debridement required multiple dressing and localized thrombin rx
-Required total 3 U prbc thic visit
7. h/o of CVA
Legally blind in right eye
- Multiple prior CVAs. LINQ recorder recommended; however, patient declined.
- Continue daily ASA. Will hold Plavix acutely in the event that surgical intervention is needed.
8. pSVT
-Continue metoprolol succinate qhs 25 mg
9. Diarrhea -- likely antibiotic-associated diarrhea -- RESOLVED
-Stool studies ordered -- C. diff negative
-Probiotic
-GI consulted, recommendations appreciated
-Continue prn Imodium
Guillain [place] syndrome, with chronic LLE weakness
Hyponatremia
Congenital heart surgery as a child, no records available, multiple requests
Moderate /AR
Mild to mod MS
-Will likely need valve surgery in the future, if an appropriate candidate; reevaluate as outpatient.
DVT Prophylaxis: Heparin Subq
Code Status: Full
12/14 Dr. Haq discussed patient prognosis and complexity of case with son over the phone. All questions answered. Dr. Haq specified to patient and son that if renal function did not improve then patient will require dialysis
12/16 patient continued to remain hesitant to initiate dialysis. Dr. Haq was hopeful that patient would have some renal function recovery although after with discussion with nephro it is clear that patient should start on hemodialysis. This was
discussed at length with patient and patient remained adamant about not being started on dialysis. Patient hesitantly agreed after repeated discussion by Dr. Haq and medical sales.
Patient's son was also aware about this.
Anticipated Discharge: 24 - 48 hours
Subjective/Interval History
-
Date of Service: December 27, 2023
Patient was seen and examined. She denied any new significant symptoms.
Objective Data
-
Labs:
Laboratory Results
12/27/23
10:39
WBC Pending
Hgb Pending
Hct Pending
Plt Count Pending
Sodium Pending
Potassium Pending
Chloride Pending
Carbon Dioxide Pending
BUN Pending
Creatinine Pending
Glucose Pending
Calcium Pending
Total Bilirubin Pending
AST Pending
ALT Pending
Alkaline Phosphatase Pending
Vital Signs:
Vital Signs
Temp Pulse Resp BP Pulse Ox
97.6 F 77 16 149/61 99
12/27/23 07:22 12/27/23 07:22 12/27/23 07:22 12/27/23 07:22 12/27/23 07:22
I&O
12/26/23 12/27/23 12/28/23
06:59 06:59 06:59
Intake Total 1050 / 1050 580 / 580
Output Total 0 / 0
Balance 1050 / 1050 580 / 580
[2023-12-27 11:12] LABS: Glucose - Point of Care 115 mg/dl (70-99)
[2023-12-27 11:34] VITALS: BP 162/66
[2023-12-27 12:09] LABS: % Basophils 0.8 % (0-2); % Eosinophils 0.5 % (0-6); % Immature Granulocytes 0.6 % (0-0.5); % Monocytes 8.4 % (1.7-9.3); % Neutrophils 81.7 % (42.2-75.2); Absolute Basophils 0.1 10^3/uL (0-0.2); Absolute Eosinophils 0.1 10^3/uL (0-0.7); Absolute Immature Granulocytes 0.1 10^3/uL (0-0.05); Absolute Lymphocytes 1.2 10^3/uL (1.2-3.4); Absolute Monocytes 1.2 10^3/uL (0.1-0.6); Absolute Neutrophils 11.7 10^3/uL (1.4-6.5); Hematocrit 28.7 % (37.0-47.0); Hemoglobin 9.1 g/dL (12.0-16.0); Mean Corp Hgb Conc. 31.7 g/dL (33.0-37.0); Mean Platelet Volume 8.8 fL (7.4-10.4); Nucleated Red Blood Cells % 0 %; Platelet Count 450 10^3/uL (130-400); Red Cell Dist. Width 25.8 % (11.5-14.5); White Blood Cell Count 14.3 10^3/uL (4.8-10.8)
[2023-12-27 12:14] LABS: ALT (SGPT) 16 U/L (0-35); AST (SGOT) 87 U/L (14-36); Albumin 3.3 g/dl (3.5-5.0); Blood Urea Nitrogen 22 mg/dl (7-17); Calcium 9.3 mg/dl (8.4-10.2); Carbon Dioxide 25 mmol/L (22-30); Chloride 96 mmol/L (98-107); Estimated Creatinine Clearance 12 ml/min; Glucose 106 mg/dl (70-99); Potassium 4.5 mmol/L (3.5-5.1); Sodium 135 mmol/L (135-145); Total Bilirubin 0.5 mg/dl (0.2-1.3); Total Protein 7.9 g/dl (6.3-8.2); eGFR 9.39
[2023-12-27 12:22] LABS: Alkaline Phosphatase 1029 U/L (38-126)
--- NOTE | 2023-12-27 12:48 | PTCARENOTE ---
Pt declined meal time insulin for breakfast and lunch today. Dr. Seymour made aware.
--- NOTE | 2023-12-27 13:04 | CM ---
Patient's physician is requesting a referral to [facility], case finishing machine adjuster met with patient and she has agreed to case finishing machine adjuster is sending a referral to [facility], patient has been asking about home set up.
Plan; Referral sent to [facility].
[2023-12-27 14:39] LABS: Anisocytosis 1+; Microcytosis 1+; Normal RBC Morphology No
[2023-12-27 14:40] LABS: Hypochromasia 1+; Target Cells 1+
[2023-12-27 15:01] VITALS: BP 164/73
[2023-12-27 16:23] LABS: Glucose - Point of Care 180 mg/dl (70-99)
[2023-12-27] MEDS: NOVOLOG FLEXPEN 3 UNITS SC ×2 (17:28→22:40)
[2023-12-27] MEDS: LIPITOR 80 MG PO (17:29)
[2023-12-27] MEDS: KEFLEX 500 MG PO (17:29)
[2023-12-27] MEDS: IMODIUM 2 MG PO (17:32)
[2023-12-27 19:18] VITALS: BP 139/61
[2023-12-27 21:33] LABS: Glucose - Point of Care 301 mg/dl (70-99)
[2023-12-27] MEDS: LANTUS 0.0200000000000000004 UNITS SC (21:53)
[2023-12-27] MEDS: TOPROL XL PO ×2 (21:54→22:20)
[2023-12-27] MEDS: ROXICODONE 5 MG PO (21:57)
--- NOTE | 2023-12-27 22:13 | PTCARENOTE ---
Pt refused scheduled metoprolol succinate extended-release 25 mg. Medication education provided. BP 142/67, HR 86, and O2 97% on RA. AAXO3. Pt reports 'It makes me feel dizzy, unsteady, and pressure in my head.' Notified NILDA Garibay. No new
orders at this time. Plan of care ongoing.
[2023-12-27 23:22] VITALS: BP 134/65
[2023-12-28 00:47] LABS: Glucose - Point of Care 289 mg/dl (70-99)
[2023-12-28] MEDS: TYLENOL PO (04:59)
[2023-12-28 06:00] VITALS: BMI 27.6
[2023-12-28 07:05] LABS: % Basophils 0.7 % (0-2); % Eosinophils 0.9 % (0-6); % Immature Granulocytes 0.4 % (0-0.5); % Lymphocytes 9.5 % (20.5-51.1); % Monocytes 8.8 % (1.7-9.3); % Neutrophils 79.7 % (42.2-75.2); Absolute Basophils 0.1 10^3/uL (0-0.2); Absolute Eosinophils 0.1 10^3/uL (0-0.7); Absolute Immature Granulocytes 0.1 10^3/uL (0-0.05); Absolute Lymphocytes 1.3 10^3/uL (1.2-3.4); Absolute Monocytes 1.2 10^3/uL (0.1-0.6); Absolute Neutrophils 11.1 10^3/uL (1.4-6.5); Hematocrit 27.6 % (37.0-47.0); Hemoglobin 8.4 g/dL (12.0-16.0); Mean Corp Hgb Conc. 30.4 g/dL (33.0-37.0); Mean Corpuscular Hgb 25.5 pg (27.0-31.0); Mean Corpuscular Volume 83.6 fL (81.0-99.0); Nucleated Red Blood Cells % 0 %; Platelet Count 406 10^3/uL (130-400); Red Cell Dist. Width 25.5 % (11.5-14.5); White Blood Cell Count 13.9 10^3/uL (4.8-10.8)
[2023-12-28 07:25] VITALS: BP 150/72
[2023-12-28 07:42] LABS: ALT (SGPT) 15 U/L (0-35); AST (SGOT) 77 U/L (14-36); Alkaline Phosphatase 888 U/L (38-126); Blood Urea Nitrogen 31 mg/dl (7-17); Carbon Dioxide 23 mmol/L (22-30); Chloride 99 mmol/L (98-107); Estimated Creatinine Clearance 10 ml/min; Glucose 226 mg/dl (70-99); Potassium 4.3 mmol/L (3.5-5.1); Sodium 134 mmol/L (135-145); Total Bilirubin 0.4 mg/dl (0.2-1.3); eGFR 7.78
--- NOTE | 2023-12-28 07:49 | PN.DE.MGMTRT ---
Insulin Management
- -
12/28/2023: Diabetes Management F/U:
Patient admitted with Right fifth toe discoloration, open wound.
PMH: CAD(CABG 1981), CKD, CVA x2, HTN, Retinopathy, CHF and T2DM. A1C 9.2%, Cr 3.0 eGFR 18.59, was taking Lantus 18-20 units @ HS and Lispro 4 units AC. Patient states she was diagnosed with diabetes at age 12 and started insulin at age 13. She
states her A1C is greatly improved. She has a glucose monitor and tests daily.
Patient is awake, alert and oriented, on HD machine, able to discuss diabetes management. HD cath placed, HD started 12/16.
POD # 21 s/p Right 5th toe amputation, POD #14 s/p tissue debridement R foot and amputation 4th toe.
POD # 4 s/p Rt foot debridement of eschar and bone resection form distal 4th and 5th metatarsals.
Glucose range 108 to 301 yesterday, refused insulin at lunch time, pre-inner sugar was 180 and 301 @ HS witj a 3AM sugar of 289, fasting 248 this AM.
Will increase NovoLog to 4 units AC. Continue 2 unit Lantus @ HS. Discussed with pt importance of optimal glucose control and taking insulin consistently.
Discussed with nurse. Will cont to follow and adjust insulin dose if necessary
Diabetes History
- -
Type of Diabetes: 1
Pre-Admission Diabetes Regimen
12/27/23 12/28/23
11:20 06:47
Creatinine 5.3 H* 6.2 H*
Lab Results
Hemoglobin A1c 9.2 % (4.0-5.6) H 12/06/23 08:12
Insulin Pump Settings
IP Diabetes Regimen
12/27/23 12/27/23 12/27/23
11:11 11:20 16:21
Glucose 106 H
POC Glucose 115 H 180 H
12/27/23 12/28/23 12/28/23
21:32 00:46 06:47
Glucose 226 H
POC Glucose 301 H 289 H
Meal type: Lunch
Meal type: Breakfast
Amount consumed: 40%
Amount consumed: 40%
Patient Education
[2023-12-28] MEDS: ASPIR LOW (ENTERIC COATED) 81 MG PO (08:00)
[2023-12-28] MEDS: PLAVIX 75 MG PO (08:00)
[2023-12-28] MEDS: VISBIOME 1 CAP PO (08:00)
[2023-12-28] MEDS: NOVOLOG FLEXPEN 3 UNITS SC ×2 (08:02→12:14)
[2023-12-28 08:03] LABS: Glucose - Point of Care 248 mg/dl (70-99)
[2023-12-28] MEDS: NOVOLOG FLEXPEN-LOW RESISTANCE 2 UNITS SC (08:03)
[2023-12-28] MEDS: HEPARIN SC ×2 (08:07→20:59)
--- NOTE | 2023-12-28 09:57 | CM ---
Addendum entered by Amelia Nraayan 12/28/23 13:43:
Patient is new for HD this admission and due to insurance is not able to go to [facility] on [address]. CM will review with patient and send information to [facility] and explore options for community chair. CM will continue to follow for discharge
planning needs.
Original Note:
Patient seen at bedside. Patient eager for clarification of next steps, eager to see PM&R for confirmation of [facility] status. CM will call to admissions and confirm bed availability/acceptance. Awaiting PM&R assessment. CM will continue to follow for
discharge planning needs.
Plan; [facility] pending acceptance
[2023-12-28] MEDS: SANTYL OINTMENT 1 APPLIC TOPICAL (10:00)
--- NOTE | 2023-12-28 11:15 | WOUNDNOTE ---
CHRISTIAN RN note: Patient admitted with cellulitis of R foot.
See H&P for complete history.
PMH: DM, CHF,HTN,CVA, [place], neuropathy, psoriatic arthritis, gastric sleeve, congenital heart disease, amputation of R 4th toe, chronic lower extremity weakness.
Wound Location and type/assessment: Patient admitted with: R 5th toe abscess and osteomyelitis, s/p R 5th toe amputation on 12/23. Prior had balloon angioplasty to R post tibial artery on 12/20. R lateral foot with open wound, mostly soft bet[place]ourt and
brown slough, moderate drainage. Santyl already on order. R &L heel are intact.
Appetite: Fair.
Pressure redistribution devices in place: On Accumax, patient turns self and can lift legs with assist.
Plan: Reviewed wound care with Dr. Casey, updated orders and discharge instructions. Teaching done with patient regarding wound care and gerri wrap. Patient is NWB to R forefoot, can heel pivot to commode or W/C. Surgical shoe in rm, patient
not using, states was rubbing on wound. Confirmed with Dr. Vaughn not to use surgical shoe at this time. Patient to follow up with sap hana developer upon discharge. Updated care plan, nurse Fifi and will follow as needed.
Note to case management of equipment requested for discharge: VN once home.
[2023-12-28] MEDS: TYLENOL 1000 MG PO ×2 (12:17→21:02)
[2023-12-28 12:21] LABS: Glucose - Point of Care 194 mg/dl (70-99)
[2023-12-28] MEDS: NOVOLOG FLEXPEN-LOW RESISTANCE 1 UNITS SC (12:21)
--- NOTE | 2023-12-28 13:42 | W.PN.HOSP.TC ---
Today's Communication/Plan
-
d/c planning for rehab
Assessment / Plan
Assessment / Plan
Lower right foot MRI 12/06
1. 2.5 cm ABSCESS dorsal to the right 5th MTP joint.
2. SOFT TISSUE EMPHYSEMA tracking around the proximal phalanx of the right 5th toe.
3. SEVERE CELLULITIS throughout the right forefoot.
4. No MRI evidence for acute osteomyelitis.
5. Diffuse signal abnormality throughout the muscles of the right foot (either severe diffuse myositis or acute on chronic muscle denervation secondary to diabetes mellitus).
Lower right foot MRI 12/13
1. PROBABLE ACUTE OSTEOMYELITIS in the right 5th metatarsal head and proximal phalanx of the 4th toe.
2. Large 5.0 cm region of nonenhancing soft tissue necrosis in the lateral right forefoot.
3. No MRI evidence for rim-enhancing enhancing fluid collection to suggest an abscess.
4. Recent amputation of the 5th toe.
5. Severe acute myositis or muscle denervation throughout the right foot.
6. Severe diffuse cellulitis.
US abd
IMPRESSION:
1. Right lower extremity: IVANIA 1.08 within normal limits. TBI mildly reduced 0.60. Eccentric wall calcification noted in vessels. Proximal superficial femoral artery velocity elevation of 357 cm/s with velocity ratio of 2.22 consistent with at least
50-74% stenosis. Monophasic waveforms noted distal to the stenosis.
2. Left lower extremity: IVANIA 1.31 within normal limits. TBI minimally reduced 0.67. Eccentric wall calcification noted in vessels. Multiphasic waveforms throughout lower extremity arteries with distal superficial femoral artery velocity elevation
245 cm/s and velocity ratio of 2.13 consistent with likely 50-74% stenosis. Multiphasic waveforms are maintained distal to the stenosis. Continuous Doppler waverforms at the dorsalis pedis and posterior tibial arteries also remain multiphasic.

1. Right Diabetic foot infection
s/p 5th toe amputation POD #4 status post diagnostic arteriogram, intravascular lithotripsy of the posterior tibial artery and proximal SFA, balloon angioplasty and nitroglycerin injection of posterior tibial artery on 12/21/23
Right foot cellulitis
-Patient presented for initial right foot fifth dual infection/cellulitis
-MRI of the foot showing soft tissue emphysema/cellulitis and abscess of MTP joint of fifth toe
-Underwent fifth toe amputation by podiatry
-Intraoperative culture growing MSSA/Streptococcus agalactia. Intraoperative bone margin pathology is negative for any osteomyelitis
-Patient started to having new worsening leukocytosis and a repeat MRI on 12/13 showing large soft tissue necrosis area
-Patient underwent debridement of right foot on 12/13 evening by podiatry, repeat wound culture growing bacteriods.
-Underwent revision with 4th toe amp (12/14/23)
-Patient finished course of Ancef > zosyn and now on keflex.
-Started patient on Plavix on 12/22/23 in addition to Aspirin, as recommended by vascular surgery
-Patient can weight bear to right heel and use wheel chair to out of bed.
2. MARYLOU with CKD stage IV
AGAP metabolic acidosis -resolved
Proteinuria
-cr improved to 1.8 with Bumex drip, but then trended up again
-Urine protein/cr ratio of 0.6
-Continue dialysis as per nephrology
-RHC on 12/08 showing PCWP of 47mmHg and was started on Bumex drip, renal function did improve but declined again later .
-Patient started on hemodialysis on 12/16 and able to tolerate without issues - continue dialysis as per nephrology
3. PAD
-Significant arterial disease with possible suggestive of bilateral proximal superficial femoral artery stenosis of 50 to 74% on US
-Status post diagnostic arteriogram, intravascular lithotripsy of the posterior tibial artery and proximal SFA, balloon angioplasty and nitroglycerin injection of posterior tibial artery on 12/21/23
-Continue DAPT
-Aggressive control of arterial disease risk factors
4. Acute on chronic diastolic congestive heart failure
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
-Patient was tried on Bumex drip for volume optimization although continue to have worsening RF
-now on HD
5. Diabetes mellitus
Hypoglycemia
-presumed Type I as diagnosed age 12.
-Diabetes [employer] consulted, recommendations appreciated
-Insulin being adjusted as appropriate
6. Iron def anemia
Acute blood loss anemia from post op
-Ferritin of 74.6 with saturation of 12% and acute phase suggestive of iron deficiency anemia
-Got 7 doses of IV Ferrlecit.
-Patient has significant blood loss from surgical site debridement required multiple dressing and localized thrombin rx
-Required total 3 U prbc thic visit
7. h/o of CVA
Legally blind in right eye
- Multiple prior CVAs. LINQ recorder recommended; however, patient declined.
- Continue daily ASA. Will hold Plavix acutely in the event that surgical intervention is needed.
8. Paroxysmal SVT
-Continue metoprolol succinate qhs 25 mg
9. Diarrhea -- likely antibiotic-associated diarrhea -- RESOLVED
-Stool studies ordered -- C. diff negative
-Probiotic
-GI consulted, recommendations appreciated
-Continue prn Imodium
Guillain Lind syndrome, with chronic LLE weakness
Hyponatremia
Moderate /AR
Mild to mod MS
DVT Prophylaxis: Heparin Subq
Code Status: Full
Anticipated Discharge: Within 24 hours
Subjective/Interval History
-
Date of Service: December 28, 2023
No acute issues reported
Objective Data
-
Labs:
Laboratory Results
12/28/23
06:47
WBC 13.9 H
Hgb 8.4 L
Hct 27.6 L
Plt Count 406 H
Sodium 134 L
Potassium 4.3
Chloride 99
Carbon Dioxide 23
BUN 31 H
Creatinine 6.2 H*
Glucose 226 H
Calcium 9.0
Total Bilirubin 0.4
AST 77 H
ALT 15
Alkaline Phosphatase 888 H
Vital Signs:
Vital Signs
Temp Pulse Resp BP Pulse Ox
97.9 F 78 19 150/72 100
12/28/23 07:25 12/28/23 07:25 12/28/23 07:25 12/28/23 07:25 12/28/23 07:25
I&O
12/27/23 12/28/23 12/29/23
06:59 06:59 06:59
Intake Total 580 / 580 620 / 620
Output Total 0 / 0
Balance 580 / 580 620 / 620
Review of Systems
-
Respiratory: Reports No Symptoms
Cardiac: Reports No Symptoms
Abdomen/GI: Reports No Symptoms
Physical Exam
-
General: Comfortable; Negative Obese
HEENT: Negative Oxygen
Respiratory: Clear to Auscultation
Cardiac: Regular Rhythm and S1/S2; Negative Murmur
GI: Soft, Nontender and Nondistended
Musculoskeletal: Other (Right lower extremity dressing in place )
Neuro: Awake, Alert, Oriented and No Motor Deficits
Psych: Calm
--- NOTE | 2023-12-28 13:50 | W.PN.NEPH.HD ---
Assessment
-
Seen on HD. no complaints. VSS, access ok
rehab planning
Progress Note - Hemodialysis
-
Date of Service: December 28, 2023
Duration: 30 minutes and 3 hours
Potassium Bath: 2
Calcium Bath: 2.5
Opti-Dialyzer: 160
Ultrafiltration: Other (2kg)
Blood Flow: 400
Dialysate Flow: 600
Heparin: no
EPO: 8000 units
[2023-12-28] MEDS: RETACRIT 8000 UNITS IV (14:28)
[2023-12-28 15:00] VITALS: BP 147/67
[2023-12-28] MEDS: HEPARIN 3900 UNITS INTRACATH (16:03)
--- NOTE | 2023-12-28 16:12 | W.PN.ID1 ---
Date of Service
Date of Service: December 28, 2023
Today's Communication
12/23 aerobic and anaerobic cultures remain negative
keflex 500 mg PO qday through 12/31
follow up with podiatry
ID service will no longer actively follow this patient please recall for further questions
Assessment / Plan
Diabetic Foot Infection
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
- revision with 4th toe amp (12/14/23)
PAD
- lithotripsy/angiography 12/20
DM1 - uncontrolled (HbA1c = 9.2 [12/06/23] )
CKD4
- now on HD
Congenital Heart disease
/AR
Pulm HTN
Hx Guillain Alvord syndrome, with chronic LLE weakness
Recommendations:
Infected bone removed in the OR 12/23, necrotic tissue debrided
12/23 aerobic and anaerobic cultures remain negative
keflex 500 mg PO qday through 12/31
follow up with podiatry
ID service will no longer actively follow this patient please recall for further questions
����������������������������������������������������������
Chief Complaint
-: Leukocytosis and Other (Right foot diabetic foot infection)
Subjective / Review of Systems
afebrile
bp stable
persistent mild leukocytosis
K normal at 4.3
tissue culture remains no growth from 12/23
Vital Signs / Physical Exam
Vital Signs
Vital Signs
Temp Pulse Resp BP Pulse Ox
97.9 F 78 19 150/72 100
12/28/23 07:25 12/28/23 07:25 12/28/23 07:25 12/28/23 07:25 12/28/23 07:25
Physical Exam
Constitutional: No Acute Distress
Cardiovascular: Regular Rate and S1/S2; Negative Murmur or Rub
Pulmonary: Clear and Symmetric; Negative Wheezes or Rales
Gastrointestinal: Soft, Non Tender, Non Distended and Normal Bowel Sounds
Skin: Warm and Dry; Negative Rash or Jaundice
Wound: Other (refused dressing take down)
Lines: HD Cath
Objective Data
Lab Data
Lab Results
12/28/23 06:47
12/28/23 06:47
ESR 105 mm/hour (0-20) H 12/06/23 00:52
PT 14.9 Sec (11.4-14.6) H 12/24/23 04:46
INR 1.17 12/24/23 04:46
APTT 55.5 Sec (23.4-35.0) H 12/24/23 04:46
Estimated Creat Clear 10 ml/min 12/28/23 06:47
Lactic Acid 1.2 mmol/L (0.7-2.0) 12/06/23 00:52
Total Bilirubin 0.4 mg/dl (0.2-1.3) 12/28/23 06:47
AST 77 U/L (14-36) H 12/28/23 06:47
ALT 15 U/L (0-35) 12/28/23 06:47
Alkaline Phosphatase 888 U/L (38-126) H 12/28/23 06:47
C-Reactive Protein 223.70 mg/L (0.0-10.00) H 12/06/23 00:52
Most recent labs reviewed.
Micro Results:
12/24/23 17:59 Anaerobic Culture - Preliminary
Bone NO ANAEROBES ISOLATED
12/24/23 17:59 Tissue Culture - Preliminary
Foot - Right No Growth After 72 Hours
Gram Stain - Preliminary
12/22/23 11:32 Salmonella/Shigella Culture - Final
Feces/Stool No Salmonella, Shigella, Aeromonas or Plesiomonas species
isolated.
Campylobacter Culture - Final
No Campylobacter species isolated.
Shiga Toxin Test - Final
No E. coli Shiga Toxin 1 or 2 detected.
Stool Leukocytes - Final
12/22/23 11:32 C. difficile GDH Antigen & Toxins - Final
Feces/Stool Negative for toxigenic C.difficile
12/14/23 20:41 Wound Culture - Final
Foot - Right No growth
Gram Stain - Final
12/14/23 20:41 Anaerobic Culture - Final
Foot - Right Bacteroides thetaiotaomicrom
12/07/23 16:14 Wound Culture - Final
Foot - Right S aureus-Methicillin Sensitive
Streptococcus agalactiae
Gram Stain - Final
12/07/23 16:14 Anaerobic Culture - Final
Foot - Right
12/06/23 03:26 Blood Culture - Final
Blood/Venous No Growth - Final Report
12/06/23 00:51 Blood Culture - Final
Blood/Venous No Growth - Final Report
12/06/23 22:32 MRSA Screen - Final
Nose No Methicillin Resistant Staphylococcus aureus isolated.
--- NOTE | 2023-12-28 16:30 | CON.MR ---
Consultation
Consultation Request
Date/Time Consultation Performed: 12/28/2023 1615
Performing Provider: Dr. Chu
Reason for Consultation: R partial foot amputation
Medical History
-
Chief Complaint: R foot pain
History of Present Illness:
I had the opportunity to see Shea Donte in rehabilitation consultation today. Briefly this is a 48 year old female wtih long complicated medical history, notable for CVA in left sergio 04/2023 with right weakness, Guillain Bare syndrome,
DM, cardiovascular disease presented to [facility] with increasing right foot pain, and malodorous wound. Did have right 5th toe amputation on 12/07/2023, additional right 4th toe amputation on 12/14/23. Had bilateral proximal superficial femoral
artery stenosis of 50 to 74% on US and underwent diagnostic arteriogram, intravascular lithotripsy of the posterior tibial artery and proximal SFA, balloon angioplasty and nitroglycerin injection of posterior tibial artery on 12/21/23. 12/23 had
some additional debridement of necrotic tissue, and distal metatarsal resection. Had been non-weight bearing in the RLE since admission.
Hospital course also notable for worsening MARYLOU on CKD and now requiring dialysis, anemia likely postop anemia. Did have antibiotic associated diarrhea, and was C Diff negative. Now on keflex po until 12/31 per ID.
Patient seen at bedside this afternoon during dialysis. Still with some pain in the right foot, and toe. No pain in the thigh or proximal leg. Does have chronic numbness and paresthesias in the right foot as well as in the right hand and right
arm that has been present since the CVA. Denies any worsening or changes aside from the pain right foot from admission and surgery. Denies any dizziness or lightheadedness, and no chest pain or SOB.
Past Medical History
Past Medical History: CVA, IDDM and Renal Failure
Social History
Functional Level Premorbidity:
Independent for all activities. Denies previous use of cane/walker
Current Funct Level: Ambulation, Transfer, UE/LE Dressing:
Min A bed mobility, Mod A transfers
Living: With Family
Number of Floors: 1 (3rd floor apartment, no steps to enter)
Potential First Floor Set Up: Yes
Driving: Yes
Occupation: On disability
Allergies / Home Medications
Allergy/AdvReac Type Severity Reaction Status Date / Time
latex Allergy Hives-allergic Verified 12/24/23 15:38
gloves,
condoms
soap Allergy Rash Verified 09/01/23 19:15
�Medication �Instructions �Recorded �Confirmed �Last Taken �Type
insulin glargine 100 unit/mL 18 - 20 unit SC HS Diabetes 04/06/23 12/06/23 05/02/23 History
subcutaneous solution (Lantus
U-100 Insulin)
insulin lispro 100 unit/mL 4 unit SC AC Diabetes 04/06/23 12/06/23 Unknown History
subcutaneous pen
omega 3-vph-zew-fish oil 900 1 cap PO DAILY Supplement 04/06/23 12/06/23 Unknown History
mg-1,400 mg capsule,delayed release
aspirin 81 mg tablet,delayed 81 mg PO DAILY Blood Clot 05/04/23 12/06/23 Unknown Rx
release Prevention/Tx #30 tabs
atorvastatin 80 mg tablet 80 mg PO QPM #30 tabs 05/04/23 12/06/23 Unknown Rx
furosemide 40 mg tablet 40 mg PO DAILY PRN Weight gain, 12/07/23 12/07/23 12/01/23 History
edema
Review Of Systems
-
History Source: Patient
All other systems: Negative unless noted
Constitutional: Reports Fatigue
Eye: Reports Other (Chronic R eye blindness, dysconjugate)
EENT: Reports No Symptoms
Respiratory: Reports No Symptoms
Cardiac: Reports No Symptoms
Abdomen/GI: Reports No Symptoms
: Reports No Symptoms
Musculoskeletal: Reports Joint Pain, Joint Swelling and Edema
Integumentary: Reports No Symptoms
Neurological: Reports Weakness and Numbness
Psych: Reports No Symptoms
Endocrine: Reports No Symptoms
Hematologic/Lymphatic: Reports No Symptoms
Immunology: Reports No Symptoms
Physical Exam
Active Medications
Generic Name Dose Route Start Last Admin
Trade Name Freq PRN Reason Stop Dose Admin
Acetaminophen 1,000 mg 12/10/23 12:00 12/28/23 12:17
Acetaminophen 500 Mg Tablet PO 01/07/24 11:59 1,000 mg
Q8H HAYES Administration
Albumin Human 12.5 grams 12/28/23 08:00
Albumin 12.5 Grams/50 Ml Bag *For Hemodialysis* IV 12/28/23 23:59
HD-Q1HPRN PRN
hypotension
Aspirin 81 mg 12/06/23 08:00 12/28/23 08:00
Aspirin 81 Mg (Enteric Coated) Tablet PO 01/03/24 07:59 81 mg
DAILY HAYES Administration
Atorvastatin Calcium 80 mg 12/06/23 18:00 12/27/23 17:29
Atorvastatin (Lipitor) 80 Mg Tablet PO 01/03/24 17:59 80 mg
QPM HAYES Administration
Bumetanide 2 mg 12/14/23 08:00 12/14/23 07:56
Bumetanide (0.25 Mg/1 Ml) 4 Ml Vial IV 01/11/24 07:59 2 mg
BID AT 0800,1600 HAYES Administration
Cephalexin HCl 500 mg 12/25/23 18:00 12/27/23 17:29
Cephalexin 500 Mg Capsule PO 500 mg
Q24H HAYES Administration
Clopidogrel Bisulfate 75 mg 12/22/23 15:00 12/28/23 08:00
Clopidogrel 75 Mg Tablet PO 01/19/24 14:59 75 mg
DAILY HAYES Administration
Collagenase 0 applic 12/27/23 08:00 12/28/23 10:00
Collagenase Ointment 2.5 Gram Jar TOPICAL 01/24/24 07:59 1 applic
DAILY HAYES Administration
Dextrose 12.5 grams 12/06/23 04:51
Dextrose 50% (0.5 Grams/Ml) 50 Ml Syringe IV 01/03/24 04:50
[id number] PRN
hypoglycemia
Protocol
Docusate Sodium 100 mg 12/10/23 08:00 12/23/23 12:10
Docusate Sodium 100 Mg Capsule PO 01/07/24 07:59 Not Given
BID HAYES
Glucagon 1 mg 12/06/23 04:51
Glucagon 1 Mg Vial IM 01/03/24 04:50
PRN PRN
hypoglycemia
Protocol
Heparin Sodium 5,000 units 12/09/23 20:00 12/28/23 08:07
Heparin 5,000 Units/Ml 1 Ml Vial SC 01/06/24 19:59 Not Given
Q12 HAYES
Hydromorphone HCl 0.25 mg 12/18/23 08:11
Hydromorphone 0.25 Mg/0.5 Ml Syringe IV 01/01/24 08:10
Q4HPRN PRN
Breakthrough Pain
Insulin Glargine 2 units/ 0.02 mls @ 0 mls/hr 12/18/23 22:00 12/27/23 21:53
Device SC 01/15/24 21:59 0.02 mls
HS HAYES Administration
As Directed
Insulin Aspart 0 units 12/18/23 16:30 12/28/23 12:21
Insulin Aspart Low Resistance 300 Units/3 Ml Pen.Injctr SC 01/15/24 16:29 1 units
AC HAYES Administration
Protocol
Insulin Aspart 4 units 12/28/23 12:32
Insulin Aspart (100 Units/Ml) 3 Ml Flexpen SC 01/15/24 11:29
AC HAYES
Lactobacillus/Bifidobacterium 1 cap 12/22/23 13:30 12/28/23 08:00
Lactobac/Bifidobac (Visbiome) PO 01/19/24 13:29 1 cap
DAILY HAYES Administration
Loperamide HCl 2 mg 12/22/23 17:32 12/27/23 17:32
Loperamide 2 Mg Capsule PO 01/19/24 17:31 2 mg
Q6HPRN PRN Administration
diarrhea
Mannitol 12.5 grams 12/28/23 08:00
Mannitol 25% (12.5 Grams/50 Ml) Vial IV 12/28/23 23:59
HD-Q1HPRN PRN
hypotension
Metoprolol Succinate 25 mg 12/18/23 22:00 12/27/23 22:20
Metoprolol 25 Mg Extended Release Tablet PO 01/15/24 21:59 Not Given
HS HAYES
Oxycodone HCl 2.5 mg 12/15/23 09:43 12/15/23 10:07
Oxycodone 5 Mg Regular Release Tablet PO 12/29/23 09:42 2.5 mg
Q4HPRN PRN Administration
mod pain
Oxycodone HCl 5 mg 12/15/23 09:43 12/27/23 21:57
Oxycodone 5 Mg Regular Release Tablet PO 12/29/23 09:42 5 mg
Q4HPRN PRN Administration
sev pain
Oxymetazoline HCl 0 sprays 12/19/23 16:47 12/27/23 09:36
Oxymetazoline 0.05% (Nasal [place]) 15 Ml Bottle NASAL 01/16/24 19:59 1 sprays
BID PRN Administration
Nose bleed
Prochlorperazine Edisylate 5 mg 12/06/23 04:51 12/10/23 03:21
Prochlorperazine 10 Mg/2 Ml Vial IV 01/03/24 04:50 5 mg
Q6HPRN PRN Administration
Nausea
Sodium Chloride 0 flush 12/06/23 05:00 12/12/23 14:08
Sodium Chloride 0.9% (Flush) Syringe IV 01/03/24 04:59 1 flush
PER PROTOCOL HAYES Administration
Sodium Chloride 10 ml 12/28/23 08:00
Sodium Chloride (4 Meq/Ml) 30 Ml Vial *For Hemodialysis* IV 12/28/23 23:59
HD-Q1HPRN PRN
cramps
Vital Signs
Temp Pulse Resp BP Pulse Ox
97.9 F 78 19 150/72 100
12/28/23 07:25 12/28/23 07:25 12/28/23 07:25 12/28/23 07:25 12/28/23 07:25
Height 5 ft 3 in
Actual Weight 70.76 kg
Body Mass Index (BMI) 27.6
Physical Exam
Physical Exam:
General Appearance/Observation: Well-developed, well-nourished individual in no apparent distress. Lying in bed. Pleasant and appropriate
Pain/Comfort Assessment: 5/10 in right foot
Integumentary/Operative Site:
Right foot dressing not visualized
Eyes: Dysconjugate on right, good tracking left
Ears/Nose/Throat: oral mucosa moist, throat clear. Lips/Teeth/Gums: normal
Neck: No muscle spasm or tenderness
Cardiovascular: Heart: regular, no murmur
Pulses: dorsalis pedis 2+ bilaterally
Respiratory: Respiratory Effort/Chest Expansion: normal Auscultation: Clear to auscultation bilaterally
Extremities: Edema: right foot edema 1+ trace on left. Cyanosis: None Trophic changes: None
Neurology Exam:
Orientation: Alert, Oriented to self, Time, Place
Memory: Intact immediately and at 3 minutes
Higher cortical function
Speech: Intact
Repetition: Intact
Comprehension: Intact
Two step command: Intact
Naming: Intact
Cranial Nerves: Normal and symmetric aside from right eye
Sensory:
Light touch: Decreased in right more than left foot, stocking loss bilaterally
Musculoskeletal: 4/5 in right UE. Able to do leg raise in bed both LE's, but 4/5 bilaterally.
Tone: Normal in all extremities
Range of Motion: Passively within normal limits in all extremities
Lab Results
12/28/23 06:47
12/28/23 06:47
WBC 13.9 10^3/uL (4.8-10.8) H 12/28/23 06:47
Hgb 8.4 g/dL (12.0-16.0) L 12/28/23 06:47
Hct 27.6 % (37.0-47.0) L 12/28/23 06:47
MCV 83.6 fL (81.0-99.0) 12/28/23 06:47
Plt Count 406 10^3/uL (130-400) H 12/28/23 06:47
ESR 105 mm/hour (0-20) H 12/06/23 00:52
PT 14.9 Sec (11.4-14.6) H 12/24/23 04:46
INR 1.17 12/24/23 04:46
Sodium 134 mmol/L (135-145) L 12/28/23 06:47
Potassium 4.3 mmol/L (3.5-5.1) 12/28/23 06:47
Chloride 99 mmol/L (98-107) 12/28/23 06:47
Carbon Dioxide 23 mmol/L (22-30) 12/28/23 06:47
BUN 31 mg/dl (7-17) H 12/28/23 06:47
Creatinine 6.2 mg/dL (0.6-1.0) H* 12/28/23 06:47
eGFR 7.78 12/28/23 06:47
Glucose 226 mg/dl (70-99) H 12/28/23 06:47
Hemoglobin A1c 9.2 % (4.0-5.6) H 12/06/23 08:12
Calcium 9.0 mg/dl (8.4-10.2) 12/28/23 06:47
Magnesium 2.0 mg/dl (1.6-2.3) 12/14/23 08:46
Total Bilirubin 0.4 mg/dl (0.2-1.3) 12/28/23 06:47
AST 77 U/L (14-36) H 12/28/23 06:47
ALT 15 U/L (0-35) 12/28/23 06:47
Alkaline Phosphatase 888 U/L (38-126) H 12/28/23 06:47
C-Reactive Protein 223.70 mg/L (0.0-10.00) H 12/06/23 00:52
Total Protein 7.0 g/dl (6.3-8.2) 12/28/23 06:47
Albumin 3.0 g/dl (3.5-5.0) L 12/28/23 06:47
Diagnostic Results
As per HPI.
Comorbidities / Impairment Group
Comorbidities:
CVA, R weakness, Guillain bare with LLE weakness, DM neuropathy, vasculopathy
Impairment Group:
Right partial foot amputation
Assessment / Plan
Plan
Assessment:
48 year old female with old CVA, R weakness, and old GBS with LLE weakness, vascular disease and DM neuropathy, now s/p right partial foot amputation.
PM&R PT/OT to increase independence with ADLs, improve balance, coordination, endurance, strength, mobility, community reintegration, decreased burden of care on others and family education. Just upgraded today for weightbearing in right heel only.
But seems mostly at wheelchair level.
Old CVA: Secondary prophylaxis on aspirin, plavix, and blood pressure control. Continue to monitor neurologic status.
Partial right foot Amputation: Monitor incision, edema control, pain control, desensitization., Is still generally NWB in the right foot - just progressed with WB on heel only.
-Keflex until 12/31 per ID.
DM: On insulin.
CKD: Now on dialysis, nephrology monitoring. Still on Bumex
Anemia: Likely post-op, iron deficient. Continue to monitor.
Psych: Psychology consult. Monitor mood, adjust medications as needed.
Skin: monitor for any additional pressure sores/rashes/lesions.
Pain: acetaminophen or oxycodone as needed.
Bowel: Colace and Senna, PRN bisacodyl.
Bladder: Time void, PVRs, PRN straight cath.
DVT Prophylaxis: Heparin SQ
Pulmonary: Incentive spirometry
Safety: Continue to reinforce assistance with all transfers.
Code Status: Full code
Dispo (date/plan/equipment needs): SNF rehab before D/C home
Functional and Medical Goals: Supervision with transfers, wheelchair mobility, ADL�s
Summary
-
Things that must be addressed in Hospital prior to discharge:
1. Please continue bedside PT/OT.
2. Confirm WB status in R foot - consideration of alternative footwear/offloading shoe to allow progression of WB and mobility?
3. Patient must be stable on oral pain medications.
Discharge Destination: SNF rehab before D/C home
Summary of recommendations:
- Discharge Destination: SNF rehab
Will sign off, please re-consult if needed.
Thank you for allowing me to care for your patient. Please contact me with any questions or concerns.
Data Reviewed
-
Radiology: Report Reviewed by me
Labs: Labs Reviewed by me
Comments
-
This note was dictated using a voice recognition system. 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 If you believe there are any discrepancies, please notify our office.
[2023-12-28 18:03] LABS: Glucose - Point of Care 72 mg/dl (70-99)
[2023-12-28 18:03] LABS: Glucose - Point of Care 70 mg/dl (70-99)
[2023-12-28] MEDS: NOVOLOG FLEXPEN SC (18:04)
[2023-12-28] MEDS: NOVOLOG FLEXPEN-LOW RESISTANCE SC (18:04)
[2023-12-28] MEDS: LIPITOR 80 MG PO (18:06)
[2023-12-28] MEDS: KEFLEX 500 MG PO (18:07)
[2023-12-28] MEDS: ROXICODONE 5 MG PO (21:03)
[2023-12-28 21:19] VITALS: BP 152/61
[2023-12-28 21:27] LABS: Glucose - Point of Care 140 mg/dl (70-99)
[2023-12-28] MEDS: TOPROL XL PO (22:40)
[2023-12-28 23:00] VITALS: BP 108/48
[2023-12-28] MEDS: LANTUS 0.0200000000000000004 UNITS SC (23:02)
[2023-12-29 04:21] LABS: Glucose - Point of Care 129 mg/dl (70-99)
[2023-12-29] MEDS: TYLENOL PO (05:01)
[2023-12-29 06:00] VITALS: BMI 26.1
[2023-12-29 07:00] VITALS: BP 163/74
[2023-12-29 08:19] LABS: Glucose - Point of Care 156 mg/dl (70-99)
[2023-12-29 08:25] LABS: % Basophils 0.8 % (0-2); % Eosinophils 0.5 % (0-6); % Immature Granulocytes 1.1 % (0-0.5); % Lymphocytes 9.6 % (20.5-51.1); % Monocytes 7.7 % (1.7-9.3); % Neutrophils 80.3 % (42.2-75.2); Absolute Basophils 0.1 10^3/uL (0-0.2); Absolute Eosinophils 0.1 10^3/uL (0-0.7); Absolute Immature Granulocytes 0.1 10^3/uL (0-0.05); Absolute Lymphocytes 1.3 10^3/uL (1.2-3.4); Absolute Neutrophils 10.6 10^3/uL (1.4-6.5); Hematocrit 28.8 % (37.0-47.0); Hemoglobin 8.9 g/dL (12.0-16.0); Mean Corp Hgb Conc. 30.9 g/dL (33.0-37.0); Mean Corpuscular Hgb 25.5 pg (27.0-31.0); Mean Corpuscular Volume 82.5 fL (81.0-99.0); Mean Platelet Volume 9.1 fL (7.4-10.4); Nucleated Red Blood Cells % 0.4 %; Platelet Count 479 10^3/uL (130-400); Red Blood Cell Count 3.49 10^6/uL (4.20-5.40); Red Cell Dist. Width 25.7 % (11.5-14.5); White Blood Cell Count 13.2 10^3/uL (4.8-10.8)
--- NOTE | 2023-12-29 08:28 | PN.DE.MGMTRT ---
Insulin Management
- -
12/29/2023: Diabetes Management Follow up
Patient admitted with Right fifth toe discoloration, open wound.
PMH: CAD(CABG 1981), CKD, CVA x2, HTN, Retinopathy, CHF and T2DM. A1C 9.2%, Cr 3.0 eGFR 18.59, was taking Lantus 18-20 units @ HS and Lispro 4 units AC. Patient states she was diagnosed with diabetes at age 12 and started insulin at age 13. She
states her A1C is greatly improved. She has a glucose monitor and tests daily.
Patient is awake, alert and oriented, able to discuss diabetes management. HD cath placed, HD started 12/16.
POD # 22 s/p Right 5th toe amputation, POD #145s/p tissue debridement R foot and amputation 4th toe, POD # 5 s/p Rt foot debridement of eschar and bone resection form distal 4th and 5th metatarsals.
Glucose range 70 to 248 yesterday, received no insulin with dinner, HS glucose 140. Fasting glucose this AM 156. AC novolog increased to 4 units AC today. Continue 2 unit Lantus @ HS. Discussed with pt importance of optimal glucose control and
taking insulin consistently.
Discussed with nurse. Will cont to follow and adjust insulin dose if necessary
Diabetes History
- -
Type of Diabetes: 2 requiring insulin
Pre-Admission Diabetes Regimen
Lab Results
Hemoglobin A1c 9.2 % (4.0-5.6) H 12/06/23 08:12
Insulin Pump Settings
IP Diabetes Regimen
12/28/23 12/28/23 12/28/23
12:20 17:59 18:02
POC Glucose 194 H 70 72
12/28/23 12/29/23 12/29/23
21:16 04:20 08:18
POC Glucose 140 H 129 H 156 H
Meal type: Dinner
Amount consumed: 50%
Patient Education
[2023-12-29 08:54] LABS: ALT (SGPT) 17 U/L (0-35); AST (SGOT) 123 U/L (14-36); Albumin 3.3 g/dl (3.5-5.0); Alkaline Phosphatase 1016 U/L (38-126); Blood Urea Nitrogen 17 mg/dl (7-17); Calcium 9.2 mg/dl (8.4-10.2); Carbon Dioxide 25 mmol/L (22-30); Chloride 96 mmol/L (98-107); Estimated Creatinine Clearance 15 ml/min; Glucose 136 mg/dl (70-99); Potassium 4.2 mmol/L (3.5-5.1); Sodium 132 mmol/L (135-145); Total Bilirubin 0.5 mg/dl (0.2-1.3); Total Protein 7.9 g/dl (6.3-8.2)
[2023-12-29] MEDS: NOVOLOG FLEXPEN-LOW RESISTANCE 1 UNITS SC (09:50)
[2023-12-29] MEDS: NOVOLOG FLEXPEN 4 UNITS SC (09:51)
[2023-12-29] MEDS: PLAVIX 75 MG PO (09:52)
[2023-12-29] MEDS: ASPIR LOW (ENTERIC COATED) 81 MG PO (09:52)
[2023-12-29] MEDS: VISBIOME 1 CAP PO (09:53)
[2023-12-29] MEDS: HEPARIN SC ×2 (09:55→20:51)
[2023-12-29 11:10] VITALS: BP 165/72
[2023-12-29] MEDS: TYLENOL 1000 MG PO ×2 (11:54→20:35)
[2023-12-29] MEDS: SANTYL OINTMENT 1 APPLIC TOPICAL (11:58)
[2023-12-29 12:06] LABS: Glucose - Point of Care 146 mg/dl (70-99)
[2023-12-29] MEDS: NOVOLOG FLEXPEN-LOW RESISTANCE SC ×2 (12:06→18:42)
[2023-12-29] MEDS: NOVOLOG FLEXPEN SC ×2 (12:06→18:45)
--- NOTE | 2023-12-29 12:55 | CM ---
Addendum entered by Amelia Narayan 12/29/23 15:39:
CM faxed to [facility] [phone] referral at request of [facility] traffic workforce representative.
Addendum entered by Amelia Narayan 12/29/23 15:20:
Patient agreed to referral to [facility] in [facility]. Referrals sent patient first choice is [facility], [place]- [phone]; indicated that patient would be accepted but need referral to HD community provider, AKIRA
sent referral to HD at [facility] in [facility] following discussion with patient- [phone]. CM will also start auth request for [facility]. CM will continue to follow for discharge planning needs.
Plan; SN[facility] ; Dr. Alvin Baer [phone]
Call number when auth recieved is [phone]/fax [phone]
Original Note:
Patient seen at bedside. CM reviewed Dr. Chu assessment and patient spoke with physician about SNF options. CM sent referral to [facility] and [facility] for consideration and CM will await response. CM will continue to follow for
discharge planning needs.
Plan; SNF/hd.
[2023-12-29] MEDS: AFRIN NASAL SPRAY 1 SPRAYS NASAL (13:24)
[2023-12-29 15:20] VITALS: BP 159/72
--- NOTE | 2023-12-29 16:52 | W.PN.HOSP.TC ---
Today's Communication/Plan
-
discharge planning
Assessment / Plan
Assessment / Plan
Lower right foot MRI 12/06
1. 2.5 cm ABSCESS dorsal to the right 5th MTP joint.
2. SOFT TISSUE EMPHYSEMA tracking around the proximal phalanx of the right 5th toe.
3. SEVERE CELLULITIS throughout the right forefoot.
4. No MRI evidence for acute osteomyelitis.
5. Diffuse signal abnormality throughout the muscles of the right foot (either severe diffuse myositis or acute on chronic muscle denervation secondary to diabetes mellitus).
Lower right foot MRI 12/13
1. PROBABLE ACUTE OSTEOMYELITIS in the right 5th metatarsal head and proximal phalanx of the 4th toe.
2. Large 5.0 cm region of nonenhancing soft tissue necrosis in the lateral right forefoot.
3. No MRI evidence for rim-enhancing enhancing fluid collection to suggest an abscess.
4. Recent amputation of the 5th toe.
5. Severe acute myositis or muscle denervation throughout the right foot.
6. Severe diffuse cellulitis.
US abd
IMPRESSION:
1. Right lower extremity: IVANIA 1.08 within normal limits. TBI mildly reduced 0.60. Eccentric wall calcification noted in vessels. Proximal superficial femoral artery velocity elevation of 357 cm/s with velocity ratio of 2.22 consistent with at least
50-74% stenosis. Monophasic waveforms noted distal to the stenosis.
2. Left lower extremity: IVANIA 1.31 within normal limits. TBI minimally reduced 0.67. Eccentric wall calcification noted in vessels. Multiphasic waveforms throughout lower extremity arteries with distal superficial femoral artery velocity elevation
245 cm/s and velocity ratio of 2.13 consistent with likely 50-74% stenosis. Multiphasic waveforms are maintained distal to the stenosis. Continuous Doppler waverforms at the dorsalis pedis and posterior tibial arteries also remain multiphasic.

1. Right Diabetic foot infection
s/p 5th toe amputation POD #4 status post diagnostic arteriogram, intravascular lithotripsy of the posterior tibial artery and proximal SFA, balloon angioplasty and nitroglycerin injection of posterior tibial artery on 12/21/23
Right foot cellulitis
-Patient presented for initial right foot fifth dual infection/cellulitis
-MRI of the foot showing soft tissue emphysema/cellulitis and abscess of MTP joint of fifth toe
-Underwent fifth toe amputation by podiatry
-Intraoperative culture growing MSSA/Streptococcus agalactia. Intraoperative bone margin pathology is negative for any osteomyelitis
-Patient started to having new worsening leukocytosis and a repeat MRI on 12/13 showing large soft tissue necrosis area
-Patient underwent debridement of right foot on 12/13 evening by podiatry, repeat wound culture growing bacteriods.
-Underwent revision with 4th toe amp (12/14/23)
-Patient finished course of Ancef > zosyn and now on keflex through 12/31
-Started patient on Plavix on 12/22/23 in addition to Aspirin, as recommended by vascular surgery
-Patient can weight bear to right heel and use wheel chair to out of bed.
2. MARYLOU with CKD stage IV
AGAP metabolic acidosis -resolved
Proteinuria
-cr improved to 1.8 with Bumex drip, but then trended up again
-Urine protein/cr ratio of 0.6
-Continue dialysis as per nephrology
-RHC on 12/08 showing PCWP of 47mmHg and was started on Bumex drip, renal function did improve but declined again later .
-Patient started on hemodialysis on 12/16 and able to tolerate without issues - continue dialysis as per nephrology
3. PAD
-Significant arterial disease with possible suggestive of bilateral proximal superficial femoral artery stenosis of 50 to 74% on US
-Status post diagnostic arteriogram, intravascular lithotripsy of the posterior tibial artery and proximal SFA, balloon angioplasty and nitroglycerin injection of posterior tibial artery on 12/21/23
-Continue DAPT
-Aggressive control of arterial disease risk factors
4. Acute on chronic diastolic congestive heart failure
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
-Patient was tried on Bumex drip for volume optimization although continue to have worsening RF
-now on HD
5. Diabetes mellitus
Hypoglycemia
-presumed Type I as diagnosed age 12.
-Diabetes MEDIA MARKETING DIRECTOR consulted, recommendations appreciated
-Insulin being adjusted as appropriate
6. Iron def anemia
Acute blood loss anemia from post op
-Ferritin of 74.6 with saturation of 12% and acute phase suggestive of iron deficiency anemia
-Got 7 doses of IV Ferrlecit.
-Patient has significant blood loss from surgical site debridement required multiple dressing and localized thrombin rx
-Required total 3 U prbc thic visit
7. h/o of CVA
Legally blind in right eye
- Multiple prior CVAs. LINQ recorder recommended; however, patient declined.
- Continue daily ASA. Will hold Plavix acutely in the event that surgical intervention is needed.
8. Paroxysmal SVT
-Continue metoprolol succinate qhs 25 mg
9. Diarrhea -- likely antibiotic-associated diarrhea -- RESOLVED
-Stool studies ordered -- C. diff negative
-Probiotic
-GI consulted, recommendations appreciated
-Continue prn Imodium
Guillain [place] syndrome, with chronic LLE weakness
Hyponatremia
Moderate /AR
Mild to mod MS
DVT Prophylaxis: Heparin Subq
Code Status: Full
Patient not a candidate for acute rehab. Patient initially hesitant to agree for SNF rehab although after discussion agreeable for snf discharge.
Anticipated Discharge: Within 24 hours
Subjective/Interval History
-
Date of Service: December 29, 2023
no issues overnight
Objective Data
-
Labs:
Laboratory Results
12/29/23
07:43
WBC 13.2 H
Hgb 8.9 L
Hct 28.8 L
Plt Count 479 H
Sodium 132 L
Potassium 4.2
Chloride 96 L
Carbon Dioxide 25
BUN 17
Creatinine 3.8 H
Glucose 136 H
Calcium 9.2
Total Bilirubin 0.5
AST 123 H
ALT 17
Alkaline Phosphatase 1016 H
Vital Signs:
Vital Signs
Temp Pulse Resp BP Pulse Ox
97.8 F 96 18 159/72 98
12/29/23 15:20 12/29/23 15:20 12/29/23 15:20 12/29/23 15:20 12/29/23 15:20
I&O
12/28/23 12/29/23 12/30/23
06:59 06:59 06:59
Intake Total 620 / 620 240 / 240
Balance 620 / 620 240 / 240
Review of Systems
-
Respiratory: Reports No Symptoms
Cardiac: Reports No Symptoms
Abdomen/GI: Reports No Symptoms
Physical Exam
-
General: Comfortable; Negative Obese
HEENT: Negative Oxygen
Respiratory: Clear to Auscultation
Cardiac: Regular Rhythm and S1/S2; Negative Murmur
GI: Soft, Nontender and Nondistended
Musculoskeletal: Other (Right lower extremity dressing in place )
Neuro: Awake, Alert, Oriented and No Motor Deficits
Psych: Calm
[2023-12-29 17:23] LABS: Glucose - Point of Care 140 mg/dl (70-99)
[2023-12-29] MEDS: LIPITOR 80 MG PO (18:42)
[2023-12-29] MEDS: KEFLEX 500 MG PO (18:44)
[2023-12-29] MEDS: IMODIUM 2 MG PO (18:49)
[2023-12-29 21:30] LABS: Glucose - Point of Care 135 mg/dl (70-99)
[2023-12-29] MEDS: TOPROL XL PO (21:37)
[2023-12-29] MEDS: LANTUS SC (21:37)
[2023-12-29 23:35] VITALS: BP 134/76
[2023-12-30] MEDS: TYLENOL PO (04:04)
[2023-12-30 07:00] VITALS: BP 166/78
[2023-12-30 07:32] VITALS: BMI 27.3
[2023-12-30 07:32] LABS: % Eosinophils 1.7 % (0-6); % Immature Granulocytes 0.7 % (0-0.5); % Neutrophils 74.6 % (42.2-75.2); Absolute Basophils 0.1 10^3/uL (0-0.2); Absolute Eosinophils 0.2 10^3/uL (0-0.7); Absolute Immature Granulocytes 0.1 10^3/uL (0-0.05); Absolute Lymphocytes 1.3 10^3/uL (1.2-3.4); Absolute Monocytes 1.3 10^3/uL (0.1-0.6); Hematocrit 27.2 % (37.0-47.0); Hemoglobin 8.3 g/dL (12.0-16.0); Mean Corp Hgb Conc. 30.5 g/dL (33.0-37.0); Mean Corpuscular Hgb 25.4 pg (27.0-31.0); Mean Corpuscular Volume 83.2 fL (81.0-99.0); Nucleated Red Blood Cells % 0.2 %; Platelet Count 456 10^3/uL (130-400); Red Blood Cell Count 3.27 10^6/uL (4.20-5.40); Red Cell Dist. Width 24.9 % (11.5-14.5)
[2023-12-30 07:59] LABS: ALT (SGPT) 16 U/L (0-35); AST (SGOT) 119 U/L (14-36); Alkaline Phosphatase 764 U/L (38-126); Blood Urea Nitrogen 22 mg/dl (7-17); Calcium 9.2 mg/dl (8.4-10.2); Carbon Dioxide 23 mmol/L (22-30); Chloride 95 mmol/L (98-107); Estimated Creatinine Clearance 13 ml/min; Glucose 92 mg/dl (70-99); Potassium 3.9 mmol/L (3.5-5.1); Sodium 131 mmol/L (135-145); Total Bilirubin 0.5 mg/dl (0.2-1.3); Total Protein 7.2 g/dl (6.3-8.2); eGFR 10.07
[2023-12-30 08:08] LABS: Glucose - Point of Care 102 mg/dl (70-99)
--- NOTE | 2023-12-30 08:12 | PN.DE.MGMTRT ---
Insulin Management
- -
12/30/2023: Diabetes Management Follow up
Patient admitted 12/05 with Right fifth toe discoloration, open wound.
PMH: CAD(CABG 1981), CKD, CVA x2, HTN, Retinopathy, CHF and T2DM. A1C 9.2%, Cr 3.0 eGFR 18.59, was taking Lantus 18-20 units @ HS and Lispro 4 units AC. Patient states she was diagnosed with diabetes at age 12 and started insulin at age 13. She
states her A1C is greatly improved. She has a glucose monitor and tests daily.
HD cath placed, HD started 12/16.
Patient awakens easily, currently receiving HD.
POD # 23 s/p Right 5th toe amputation, POD #16 s/p tissue debridement R foot and amputation 4th toe, POD # 6 s/p Rt foot debridement of eschar and bone resection form distal 4th and 5th metatarsals.
Glucose range 135 to 156 yesterday, patient refused insulin with lunch and dinner, HS glucose 135 refused HS lantus. Fasting glucose this AM 102. Continue 2 unit Lantus @ HS with novolog 4 units AC. Discussed with pt importance of optimal glucose
control and taking insulin consistently.
Discussed with nurse. Will cont to follow and adjust insulin dose if necessary
Diabetes History
- -
Type of Diabetes: 2 requiring insulin
Pre-Admission Diabetes Regimen
12/29/23 12/30/23
07:43 06:47
Creatinine 3.8 H 5.0 H*
Lab Results
Hemoglobin A1c 9.2 % (4.0-5.6) H 12/06/23 08:12
Insulin Pump Settings
IP Diabetes Regimen
12/29/23 12/29/23 12/29/23
07:43 08:18 12:05
Glucose 136 H
POC Glucose 156 H 146 H
12/29/23 12/29/23 12/30/23
17:22 21:29 06:47
Glucose 92
POC Glucose 140 H 135 H
12/30/23
08:07
Glucose
POC Glucose 102 H
Meal type: Lunch
Amount consumed: 90%
Patient Education
[2023-12-30] MEDS: NOVOLOG FLEXPEN SC ×2 (08:34→12:50)
[2023-12-30] MEDS: NOVOLOG FLEXPEN-LOW RESISTANCE SC ×2 (08:34→12:50)
[2023-12-30] MEDS: RETACRIT 8000 UNITS IV (09:08)
--- NOTE | 2023-12-30 10:00 | PN.CDI ---
CDI
- -
CDI:
Physician Documentation Request
Admit Date: 12/06/23 03:31
Dear Doctor Jacinto,
Patient admitted with sepsis.
12/23 Op note, 'Right foot large necrotic tissue, eschar right lateral foot, and large open wound with severe fibrotic tissue.... Debridement of necrotic tissue from the right lateral foot....using a #15 blade....'
Please clarify in your note the following regarding the debridement:
Please specify the type of debridement performed:
1. Excisional Debridement - defined as removal by excision of devitalized tissue, necrosis or slough
2. Non-excisional debridement - defined as removal of devitalized tissue, necrosis or slough by such methods as irrigation, brushing, scrubbing or washing.
For excisional or non-excisional, please also include:
1. Depth of debridement (skin, subcutaneous tissue, fascia, muscle, bone etc)
Use of terms such as suspected, likely, concern for, or probable (associated with a specific diagnosis that is being evaluated, monitored, or treated as if it exists) are acceptable and can be coded in the inpatient setting, when documented at the
time of discharge.
Thank you,
Makayla SARKAR,RN,CCDS
CDI Specialist
Available via [place] text
Please use your independent medical judgment in providing your response.
[2023-12-30 11:09] LABS: Glucose - Point of Care 88 mg/dl (70-99)
[2023-12-30] MEDS: HEPARIN 3900 UNITS INTRACATH (11:21)
--- NOTE | 2023-12-30 11:50 | W.PN.NEPH.HD ---
Assessment
-
- feeling well
- UF only 1kg because patient felt too much was taken off previously
Progress Note - Hemodialysis
-
Date of Service: December 30, 2023
Duration: 30 minutes and 3 hours
Potassium Bath: 3
Calcium Bath: 2.5
Opti-Dialyzer: 160
Ultrafiltration: Other
Blood Flow: 400
Dialysate Flow: 600
[2023-12-30] MEDS: HEPARIN SC ×2 (12:26→21:01)
[2023-12-30] MEDS: PLAVIX 75 MG PO (12:27)
[2023-12-30] MEDS: TYLENOL 1000 MG PO ×2 (12:27→20:07)
[2023-12-30] MEDS: ASPIR LOW (ENTERIC COATED) 81 MG PO (12:27)
[2023-12-30] MEDS: SANTYL OINTMENT 1 APPLIC TOPICAL (12:27)
[2023-12-30] MEDS: VISBIOME 1 CAP PO (12:27)
[2023-12-30] MEDS: AFRIN NASAL SPRAY 1 SPRAYS NASAL (12:29)
[2023-12-30 12:51] VITALS: BP 132/64
--- NOTE | 2023-12-30 14:09 | W.PN.HOSP.TC ---
Today's Communication/Plan
-
discharge planning for snf rehab
Assessment / Plan
Assessment / Plan
Lower right foot MRI 12/06
1. 2.5 cm ABSCESS dorsal to the right 5th MTP joint.
2. SOFT TISSUE EMPHYSEMA tracking around the proximal phalanx of the right 5th toe.
3. SEVERE CELLULITIS throughout the right forefoot.
4. No MRI evidence for acute osteomyelitis.
5. Diffuse signal abnormality throughout the muscles of the right foot (either severe diffuse myositis or acute on chronic muscle denervation secondary to diabetes mellitus).
Lower right foot MRI 12/13
1. PROBABLE ACUTE OSTEOMYELITIS in the right 5th metatarsal head and proximal phalanx of the 4th toe.
2. Large 5.0 cm region of nonenhancing soft tissue necrosis in the lateral right forefoot.
3. No MRI evidence for rim-enhancing enhancing fluid collection to suggest an abscess.
4. Recent amputation of the 5th toe.
5. Severe acute myositis or muscle denervation throughout the right foot.
6. Severe diffuse cellulitis.
US abd
IMPRESSION:
1. Right lower extremity: IVANIA 1.08 within normal limits. TBI mildly reduced 0.60. Eccentric wall calcification noted in vessels. Proximal superficial femoral artery velocity elevation of 357 cm/s with velocity ratio of 2.22 consistent with at least
50-74% stenosis. Monophasic waveforms noted distal to the stenosis.
2. Left lower extremity: IVANIA 1.31 within normal limits. TBI minimally reduced 0.67. Eccentric wall calcification noted in vessels. Multiphasic waveforms throughout lower extremity arteries with distal superficial femoral artery velocity elevation
245 cm/s and velocity ratio of 2.13 consistent with likely 50-74% stenosis. Multiphasic waveforms are maintained distal to the stenosis. Continuous Doppler waverforms at the dorsalis pedis and posterior tibial arteries also remain multiphasic.

1. Right Diabetic foot infection
s/p 5th toe amputation POD #4 status post diagnostic arteriogram, intravascular lithotripsy of the posterior tibial artery and proximal SFA, balloon angioplasty and nitroglycerin injection of posterior tibial artery on 12/21/23
Right foot cellulitis
-Patient presented for initial right foot fifth dual infection/cellulitis
-MRI of the foot showing soft tissue emphysema/cellulitis and abscess of MTP joint of fifth toe
-Underwent fifth toe amputation by podiatry
-Intraoperative culture growing MSSA/Streptococcus agalactia. Intraoperative bone margin pathology is negative for any osteomyelitis
-Patient started to having new worsening leukocytosis and a repeat MRI on 12/13 showing large soft tissue necrosis area
-Patient underwent debridement of right foot on 12/13 evening by podiatry, repeat wound culture growing bacteriods.
-Underwent revision with 4th toe amp (12/14/23)
-Patient finished course of Ancef > zosyn and now on keflex through 12/31
-Started patient on Plavix on 12/22/23 in addition to Aspirin, as recommended by vascular surgery
-Patient can weight bear to right heel and use wheel chair to out of bed.
2. MARYLOU with CKD stage IV
AGAP metabolic acidosis -resolved
Proteinuria
-cr improved to 1.8 with Bumex drip, but then trended up again
-Urine protein/cr ratio of 0.6
-Continue dialysis as per nephrology
-RHC on 12/08 showing PCWP of 47mmHg and was started on Bumex drip, renal function did improve but declined again later .
-Patient started on hemodialysis on 12/16 and able to tolerate without issues - continue dialysis as per nephrology
3. PAD
-Significant arterial disease with possible suggestive of bilateral proximal superficial femoral artery stenosis of 50 to 74% on US
-Status post diagnostic arteriogram, intravascular lithotripsy of the posterior tibial artery and proximal SFA, balloon angioplasty and nitroglycerin injection of posterior tibial artery on 12/21/23
-Continue DAPT
-Aggressive control of arterial disease risk factors
4. Acute on chronic diastolic congestive heart failure
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
-Patient was tried on Bumex drip for volume optimization although continue to have worsening RF
-now on HD
5. Diabetes mellitus
Hypoglycemia
-presumed Type I as diagnosed age 12.
-Diabetes ELECTROMEDICAL EQUIPMENT TECHNICIAN consulted, recommendations appreciated
-Insulin being adjusted as appropriate
6. Iron def anemia
Acute blood loss anemia from post op
-Ferritin of 74.6 with saturation of 12% and acute phase suggestive of iron deficiency anemia
-Got 7 doses of IV Ferrlecit.
-Patient has significant blood loss from surgical site debridement required multiple dressing and localized thrombin rx
-Required total 3 U prbc thic visit
7. h/o of CVA
Legally blind in right eye
- Multiple prior CVAs. LINQ recorder recommended; however, patient declined.
- Continue daily ASA. Will hold Plavix acutely in the event that surgical intervention is needed.
8. Paroxysmal SVT
-Continue metoprolol succinate qhs 25 mg
9. Diarrhea -- likely antibiotic-associated diarrhea -- RESOLVED
-Stool studies ordered -- C. diff negative
-Probiotic
-GI consulted, recommendations appreciated
-Continue prn Imodium
Guillain [place] syndrome, with chronic LLE weakness
Hyponatremia
Moderate /AR
Mild to mod MS
DVT Prophylaxis: Heparin Subq
Code Status: Full
12/28 Patient not a candidate for acute rehab. Patient initially hesitant to agree for SNF rehab although after discussion agreeable for snf discharge.
Anticipated Discharge: Within 24 hours
Subjective/Interval History
-
Date of Service: December 30, 2023
No reported problems
Objective Data
-
Labs:
Laboratory Results
12/30/23
06:47
WBC 12.0 H
Hgb 8.3 L
Hct 27.2 L
Plt Count 456 H
Sodium 131 L
Potassium 3.9
Chloride 95 L
Carbon Dioxide 23
BUN 22 H
Creatinine 5.0 H*
Glucose 92
Calcium 9.2
Total Bilirubin 0.5
AST 119 H
ALT 16
Alkaline Phosphatase 764 H
Vital Signs:
Vital Signs
Temp Pulse Resp BP Pulse Ox
98.1 F 94 16 132/64 100
12/30/23 07:00 12/30/23 12:51 12/30/23 07:00 12/30/23 12:51 12/30/23 07:00
I&O
12/29/23 12/30/23 12/31/23
06:59 06:59 06:59
Intake Total 240 / 240 540 / 540
Balance 240 / 240 540 / 540
Review of Systems
-
Respiratory: Reports No Symptoms
Cardiac: Reports No Symptoms
Abdomen/GI: Reports No Symptoms
Physical Exam
-
General: Comfortable; Negative Obese
HEENT: Negative Oxygen
Respiratory: Clear to Auscultation
Cardiac: Regular Rhythm and S1/S2; Negative Murmur
GI: Soft, Nontender and Nondistended
Musculoskeletal: Other (Right lower extremity dressing in place )
Neuro: Awake, Alert, Oriented and No Motor Deficits
Psych: Calm
--- NOTE | 2023-12-30 14:45 | CM ---
CM reviewed chart
Plan for admission to [facility] and they will transport to outpt HD [facility]
Call with [facility]- clinicals received and still under review
Call with [facility] to follow up on SNF auth request
Confirmed faxed received but attached to hospitalization, not SNF request
Request created for SNF and NPIs provided- SNF auth pending
[facility] HD referral pending and auth pending for SNF
Discharge Disposition- [facility] SNF with outpt HD at [facility]
[2023-12-30 15:26] VITALS: BP 133/56
[2023-12-30 16:29] LABS: Glucose - Point of Care 185 mg/dl (70-99)
[2023-12-30] MEDS: KEFLEX 500 MG PO (17:30)
[2023-12-30] MEDS: LIPITOR 80 MG PO (17:30)
[2023-12-30] MEDS: NOVOLOG FLEXPEN-LOW RESISTANCE 1 UNITS SC (17:31)
[2023-12-30] MEDS: NOVOLOG FLEXPEN 4 UNITS SC (17:31)
[2023-12-30 21:29] LABS: Glucose - Point of Care 185 mg/dl (70-99)
[2023-12-30] MEDS: LANTUS 0.0200000000000000004 UNITS SC (21:56)
[2023-12-30] MEDS: TOPROL XL PO (21:56)
[2023-12-30] MEDS: ROXICODONE 2.5 MG PO (22:37)
[2023-12-30 22:53] VITALS: BP 122/53
[2023-12-31] MEDS: TYLENOL PO ×2 (04:10→15:16)
[2023-12-31 06:00] VITALS: BMI 26.9
[2023-12-31 07:47] VITALS: BP 141/86
--- NOTE | 2023-12-31 08:00 | PN.DE.MGMTRT ---
Insulin Management
- -
12/31/2023: Diabetes Management Follow up
Patient admitted 12/05 with Right fifth toe discoloration, open wound.
PMH: CAD(CABG 1981), CKD, CVA x2, HTN, Retinopathy, CHF and T2DM. A1C 9.2%, Cr 3.0 eGFR 18.59, was taking Lantus 18-20 units @ HS and Lispro 4 units AC. Patient states she was diagnosed with diabetes at age 12 and started insulin at age 13. She
states her A1C is greatly improved. She has a glucose monitor and tests daily.
HD cath placed, HD started 12/16.
Patient awake alert and oriented.
POD # 24 s/p Right 5th toe amputation, POD #17 s/p tissue debridement R foot and amputation 4th toe, POD #7 s/p Rt foot debridement of eschar and bone resection form distal 4th and 5th metatarsals.
Glucose range 88 to 185 yesterday, patient refused insulin with breakfast and lunch, HS glucose 185. Fasting glucose this AM . Continue 2 unit Lantus @ HS Discussed with patient novolog doses, she feels 4 units is too much for the amount of food
she eats. Will decrease to novolog 3 units AC. Discussed with pt importance of optimal glucose control and taking insulin consistently.
Discussed with nurse. Will cont to follow and adjust insulin dose if necessary
Diabetes History
- -
Type of Diabetes: 2 requiring insulin
Pre-Admission Diabetes Regimen
Lab Results
Hemoglobin A1c 9.2 % (4.0-5.6) H 12/06/23 08:12
Insulin Pump Settings
IP Diabetes Regimen
12/30/23 12/30/23 12/30/23
08:07 11:07 16:28
POC Glucose 102 H 88 185 H
12/30/23
21:28
POC Glucose 185 H
Meal type: Lunch
Meal type: Breakfast
Amount consumed: 50%
Amount consumed: 0
Patient Education
[2023-12-31 08:11] LABS: Glucose - Point of Care 132 mg/dl (70-99)
[2023-12-31] MEDS: NOVOLOG FLEXPEN-LOW RESISTANCE SC ×3 (09:53→17:26)
[2023-12-31] MEDS: VISBIOME 1 CAP PO (09:54)
[2023-12-31] MEDS: ASPIR LOW (ENTERIC COATED) 81 MG PO (09:55)
[2023-12-31] MEDS: NOVOLOG FLEXPEN SC ×2 (09:55→15:21)
[2023-12-31] MEDS: PLAVIX 75 MG PO (09:55)
[2023-12-31] MEDS: HEPARIN SC ×2 (09:55→20:02)
[2023-12-31] MEDS: AFRIN NASAL SPRAY 1 SPRAYS NASAL (09:58)
--- NOTE | 2023-12-31 11:19 | CM ---
Patient seen at bedside. CM updated by [facility] that they do not accept patient insurance. CM sent referral to [facility] and updated patient that authorization has not been approved. CM will call to [facility] and follow with [facility] regarding
accepting hd center. CM will continue to follow for discharge planning needs.
Plan; SNF; with start of application to [facility] for community chair.
[2023-12-31] MEDS: NOVOLOG FLEXPEN 3 UNITS SC ×2 (12:04→17:27)
[2023-12-31 12:10] LABS: Glucose - Point of Care 155 mg/dl (70-99)
[2023-12-31 14:45] VITALS: BP 163/76
[2023-12-31 17:25] LABS: Glucose - Point of Care 155 mg/dl (70-99)
[2023-12-31] MEDS: LIPITOR 80 MG PO (17:27)
[2023-12-31] MEDS: KEFLEX 500 MG PO (17:27)
[2023-12-31] MEDS: SANTYL OINTMENT 1 APPLIC TOPICAL (17:33)
[2023-12-31 21:14] LABS: Glucose - Point of Care 200 mg/dl (70-99)
[2023-12-31] MEDS: TYLENOL 1000 MG PO (21:21)
[2023-12-31] MEDS: ROXICODONE 2.5 MG PO (21:21)
[2023-12-31] MEDS: LANTUS 0.0200000000000000004 UNITS SC (21:21)
[2023-12-31] MEDS: TOPROL XL PO (22:09)
[2023-12-31 23:00] VITALS: BP 137/62
[2024-01-01] MEDS: TYLENOL PO (05:10)
[2024-01-01 06:00] VITALS: BMI 27.0
[2024-01-01 07:00] VITALS: BP 162/77
[2024-01-01 07:24] LABS: Glucose - Point of Care 151 mg/dl (70-99)
--- NOTE | 2024-01-01 07:48 | PN.DE.MGMTRT ---
Insulin Management
- -
01/01/2024: Diabetes Management F/U
Patient admitted 12/05 with Right fifth toe discoloration, open wound.
PMH: CAD(CABG 1981), CKD, CVA x2, HTN, Retinopathy, CHF and T2DM. A1C 9.2%, Cr 3.0 eGFR 18.59, was taking Lantus 18-20 units @ HS and Lispro 4 units AC. Patient states she was diagnosed with diabetes at age 12 and started insulin at age 13. She
states her A1C is greatly improved. She has a glucose monitor and tests daily. HD cath placed, HD started 12/16.
Patient awake alert and oriented.
POD # 25 s/p Right 5th toe amputation, POD #18 s/p tissue debridement R foot and amputation 4th toe, POD #8 s/p Rt foot debridement of eschar and bone resection form distal 4th and 5th metatarsals.
Glucose range 132 to 155 yesterday, HS glucose 200, Fasting glucose 151 this AM.
Continue 2 unit Lantus @ HS and NovoLog 3 units AC. Discussed with pt importance of optimal glucose control and taking insulin consistently.
Discussed with nurse. Will cont to follow and adjust insulin dose if necessary
Diabetes History
- -
Type of Diabetes: 1
Pre-Admission Diabetes Regimen
Lab Results
Hemoglobin A1c 9.2 % (4.0-5.6) H 12/06/23 08:12
Insulin Pump Settings
IP Diabetes Regimen
12/31/23 12/31/23 12/31/23
08:10 12:08 17:23
POC Glucose 132 H 155 H 155 H
12/31/23 01/01/24
21:13 07:24
POC Glucose 200 H 151 H
Patient Education
[2024-01-01] MEDS: NOVOLOG FLEXPEN SC (08:50)
[2024-01-01] MEDS: NOVOLOG FLEXPEN-LOW RESISTANCE SC ×3 (08:51→17:46)
[2024-01-01] MEDS: HEPARIN SC ×2 (08:51→21:04)
[2024-01-01 09:00] LABS: Hematocrit 28.1 % (37.0-47.0); Hemoglobin 8.6 g/dL (12.0-16.0); Mean Corp Hgb Conc. 30.6 g/dL (33.0-37.0); Mean Corpuscular Hgb 25.6 pg (27.0-31.0); Mean Corpuscular Volume 83.6 fL (81.0-99.0); Mean Platelet Volume 8.9 fL (7.4-10.4); Platelet Count 474 10^3/uL (130-400); Red Blood Cell Count 3.36 10^6/uL (4.20-5.40); Red Cell Dist. Width 24.8 % (11.5-14.5); White Blood Cell Count 10.8 10^3/uL (4.8-10.8)
[2024-01-01] MEDS: RETACRIT 8000 UNITS IV (09:36)
[2024-01-01 10:12] LABS: Albumin 3.5 g/dl (3.5-5.0); Blood Urea Nitrogen 23 mg/dl (7-17); Carbon Dioxide 26 mmol/L (22-30); Chloride 98 mmol/L (98-107); Estimated Creatinine Clearance 15 ml/min; Glucose 147 mg/dl (70-99); Phosphorus 4.9 mg/dl (2.5-4.5); Potassium 3.6 mmol/L (3.5-5.1); Sodium 134 mmol/L (135-145); eGFR 11.74
--- NOTE | 2024-01-01 10:58 | W.PN.NEPH.HD ---
Assessment
-
Seen on HD. no complaints VSS, access tunnelled HD CVC ok
awaiting placement
pt asked about renal recovery which can be determined at OP HD unit, though I think it is unlikely
Progress Note - Hemodialysis
-
Date of Service: January 01, 2024
Duration: 30 minutes and 3 hours
Potassium Bath: 3
Calcium Bath: 2.5
Opti-Dialyzer: 160
Ultrafiltration: Other (1kg)
Blood Flow: 400
Dialysate Flow: 600
Heparin: no
EPO: 8000 units
[2024-01-01 11:58] LABS: Glucose - Point of Care 105 mg/dl (70-99)
[2024-01-01] MEDS: NOVOLOG FLEXPEN 3 UNITS SC ×2 (12:52→17:47)
[2024-01-01] MEDS: VISBIOME 1 CAP PO (12:53)
[2024-01-01] MEDS: ASPIR LOW (ENTERIC COATED) 81 MG PO (12:54)
[2024-01-01] MEDS: TYLENOL 1000 MG PO ×2 (12:54→21:04)
[2024-01-01] MEDS: PLAVIX 75 MG PO (12:54)
--- NOTE | 2024-01-01 13:05 | CM ---
Patient seen at bedside while on HD> CM sent updated clinicals to [facility]; awaiting chest xray for tbclearance. CM also still awaiting auth from [facility] and plan is for patient to go to SNF at [facility] in [place]. please call to confirm
bed availability if auth recieved. Patient will also need confirmation of acceptance at [facility] and transportation to SNF via ambulance/wheelchair van. CM will continue to follow for discharge planning needs.
Plan; SNF pending auth and community chair.
--- NOTE | 2024-01-01 14:19 | W.PN.HOSP.TC ---
Today's Communication/Plan
-
ongoing snf discharge planing
Chest xr ordered
Assessment / Plan
Assessment / Plan
Lower right foot MRI 12/06
1. 2.5 cm ABSCESS dorsal to the right 5th MTP joint.
2. SOFT TISSUE EMPHYSEMA tracking around the proximal phalanx of the right 5th toe.
3. SEVERE CELLULITIS throughout the right forefoot.
4. No MRI evidence for acute osteomyelitis.
5. Diffuse signal abnormality throughout the muscles of the right foot (either severe diffuse myositis or acute on chronic muscle denervation secondary to diabetes mellitus).
Lower right foot MRI 12/13
1. PROBABLE ACUTE OSTEOMYELITIS in the right 5th metatarsal head and proximal phalanx of the 4th toe.
2. Large 5.0 cm region of nonenhancing soft tissue necrosis in the lateral right forefoot.
3. No MRI evidence for rim-enhancing enhancing fluid collection to suggest an abscess.
4. Recent amputation of the 5th toe.
5. Severe acute myositis or muscle denervation throughout the right foot.
6. Severe diffuse cellulitis.
US abdomen
IMPRESSION:
1. Right lower extremity: IVANIA 1.08 within normal limits. TBI mildly reduced 0.60. Eccentric wall calcification noted in vessels. Proximal superficial femoral artery velocity elevation of 357 cm/s with velocity ratio of 2.22 consistent with at least
50-74% stenosis. Monophasic waveforms noted distal to the stenosis.
2. Left lower extremity: IVANIA 1.31 within normal limits. TBI minimally reduced 0.67. Eccentric wall calcification noted in vessels. Multiphasic waveforms throughout lower extremity arteries with distal superficial femoral artery velocity elevation
245 cm/s and velocity ratio of 2.13 consistent with likely 50-74% stenosis. Multiphasic waveforms are maintained distal to the stenosis. Continuous Doppler waveforms at the dorsalis pedis and posterior tibial arteries also remain multiphasic.

1. Right Diabetic foot infection
s/p 5th toe amputation POD #4 status post diagnostic arteriogram, intravascular lithotripsy of the posterior tibial artery and proximal SFA, balloon angioplasty and nitroglycerin injection of posterior tibial artery on 12/21/23
Right foot cellulitis
-Patient presented for initial right foot fifth dual infection/cellulitis
-MRI of the foot showing soft tissue emphysema/cellulitis and abscess of MTP joint of fifth toe
-Underwent fifth toe amputation by podiatry
-Intraoperative culture growing MSSA/Streptococcus agalactia. Intraoperative bone margin pathology is negative for any osteomyelitis
-Patient started to having new worsening leukocytosis and a repeat MRI on 12/13 showing large soft tissue necrosis area
-Patient underwent debridement of right foot on 12/13 evening by podiatry, repeat wound culture growing bacteroids.
-Underwent revision with 4th toe amp (12/14/23)
-Patient finished course of Ancef > Zosyn and now on Keflex through 12/31
-Started patient on Plavix on 12/22/23 in addition to Aspirin, as recommended by vascular surgery
-Patient can weight bear to right heel and use wheel chair to out of bed.
2. MARYLOU with CKD stage IV
AGAP metabolic acidosis -resolved
Proteinuria
-cr improved to 1.8 with Bumex drip, but then trended up again
-Urine protein/cr ratio of 0.6
-Continue dialysis as per nephrology
-RHC on 12/08 showing PCWP of 47mmHg and was started on Bumex drip, renal function did improve but declined again later .
-Patient started on hemodialysis on 12/16 and able to tolerate without issues - continue dialysis as per nephrology
3. PAD
-Significant arterial disease with possible suggestive of bilateral proximal superficial femoral artery stenosis of 50 to 74% on US
-Status post diagnostic arteriogram, intravascular lithotripsy of the posterior tibial artery and proximal SFA, balloon angioplasty and nitroglycerin injection of posterior tibial artery on 12/21/23
-Continue DAPT
-Aggressive control of arterial disease risk factors
4. Acute on chronic diastolic congestive heart failure
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
-Patient was tried on Bumex drip for volume optimization although continue to have worsening RF
-now on HD
5. Diabetes mellitus
Hypoglycemia
-presumed Type I as diagnosed age 12.
-Diabetes TAX ANALYST consulted, recommendations appreciated
-Insulin being adjusted as appropriate
6. Iron def anemia
Acute blood loss anemia from post op
-Ferritin of 74.6 with saturation of 12% and acute phase suggestive of iron deficiency anemia
-Got 7 doses of IV Ferrlecit.
-Patient has significant blood loss from surgical site debridement required multiple dressing and localized thrombin rx
-Required total 3 U PRBC this visit.
7. h/o of CVA
Legally blind in right eye
- Multiple prior CVAs. LINQ recorder recommended; however, patient declined.
- Continue daily ASA. Will hold Plavix acutely in the event that surgical intervention is needed.
8. Paroxysmal SVT
-Continue metoprolol succinate qhs 25 mg
9. Diarrhea -- likely antibiotic-associated diarrhea -- RESOLVED
-Stool studies ordered -- C. diff negative
-Probiotic
-GI consulted, recommendations appreciated
-Continue prn Imodium
Guillain [place] syndrome, with chronic LLE weakness
Hyponatremia
Moderate /AR
Mild to mod MS
DVT Prophylaxis: Heparin Subq
Code Status: Full
12/28 Patient not a candidate for acute rehab. Patient initially hesitant to agree for SNF rehab although after discussion agreeable for snf discharge.
Anticipated Discharge: Today
Subjective/Interval History
-
Date of Service: January 01, 2024
Denies of having any problems overnight
Anxious to leave
Objective Data
-
Labs:
Laboratory Results
01/01/24 01/01/24
07:56 08:39
WBC 10.8
Hgb 8.6 L
Hct 28.1 L
Plt Count 474 H
Sodium 134 L
Potassium 3.6
Chloride 98
Carbon Dioxide 26
BUN 23 H
Creatinine 4.4 H*
Glucose 147 H
Calcium 10.0
Vital Signs:
Vital Signs
Temp Pulse Resp BP Pulse Ox
97.8 F 85 16 162/77 100
01/01/24 07:00 01/01/24 07:00 01/01/24 07:00 01/01/24 07:00 01/01/24 07:00
I&O
12/31/23 01/01/24 01/02/24
06:59 06:59 06:59
Intake Total 120 / 120 480 / 480
Output Total 250 / 250
Balance 120 / 120 230 / 230
Review of Systems
-
Respiratory: Reports No Symptoms
Cardiac: Reports No Symptoms
Abdomen/GI: Reports No Symptoms
Physical Exam
-
General: Comfortable; Negative Obese
HEENT: Negative Oxygen
Respiratory: Clear to Auscultation
Cardiac: Regular Rhythm and S1/S2; Negative Murmur
GI: Soft, Nontender and Nondistended
Musculoskeletal: Other (Right lower extremity dressing in place )
Neuro: Awake, Alert, Oriented and No Motor Deficits
Psych: Calm
[2024-01-01 15:00] VITALS: BP 104/53
--- NOTE | 2024-01-01 15:19 | CM ---
Call placed to Abstract Clerk Rosa M Hurtado , Jessy Pride, regarding pending auth ([id number])for this patient. [facility] stated that on 12/29 they had sent a fax to [phone] requesting updated PT and OT information. I made Jessy aware this is not our
fax number, Updated PT/OT information faxed to Rosa M Hurtado at [phone]. Update to .
--- NOTE | 2024-01-01 16:58 | CM ---
Patient auth approved per [facility]; [phone]. #[id number] 01/01-01/08; next review 01/07 fax clinical update for [phone]. CM updated Alvarez at [facility] and she confirmed that once patient HD chair is confirmed patient would
be able to come over weekend but HD chair had to be confirmed. CM spoke with Dana at [facility] and faxed all documentation needed. Per Dana they are open until 8:30 eastern time and closed on the weekend. Once review is complete and accepted [facility] to
call CM office and leave with confirmation. CM will continue to follow for discharge planning needs.
Plan; SNF pending confirmation of chair
[2024-01-01 17:03] LABS: Glucose - Point of Care 198 mg/dl (70-99)
[2024-01-01] MEDS: LIPITOR 80 MG PO (17:47)
[2024-01-01] MEDS: KEFLEX 500 MG PO (17:47)
[2024-01-01] MEDS: SANTYL OINTMENT 1 APPLIC TOPICAL (17:48)
[2024-01-01 21:16] LABS: Glucose - Point of Care 205 mg/dl (70-99)
[2024-01-01] MEDS: TOPROL XL PO (21:19)
[2024-01-01] MEDS: LANTUS 0.0200000000000000004 UNITS SC (21:21)
[2024-01-01 21:40] VITALS: BP 133/62
[2024-01-02 04:20] VITALS: BP 136/67
--- NOTE | 2024-01-02 04:26 | PTCARENOTE ---
Pt. c/o 04/14 pain in right foot post op amputated last 2 digits, face squinting in pain, noting 'I can't sleep with this pain, notified NILDA Nava, ordered oxy 2.5 mg x 1 dose.
[2024-01-02] MEDS: ROXICODONE 2.5 MG PO (04:35)
[2024-01-02] MEDS: TYLENOL 1000 MG PO ×3 (04:35→21:22)
[2024-01-02 06:00] VITALS: BMI 26.6
[2024-01-02 07:00] VITALS: BP 161/75
[2024-01-02 07:14] LABS: Glucose - Point of Care 209 mg/dl (70-99)
[2024-01-02] MEDS: NOVOLOG FLEXPEN-LOW RESISTANCE SC ×4 (07:56→17:25)
[2024-01-02] MEDS: PLAVIX 75 MG PO (07:57)
[2024-01-02] MEDS: HEPARIN 5000 UNITS SC (07:57)
[2024-01-02] MEDS: ASPIR LOW (ENTERIC COATED) 81 MG PO (07:57)
[2024-01-02] MEDS: NOVOLOG FLEXPEN 3 UNITS SC ×3 (07:57→17:26)
[2024-01-02] MEDS: VISBIOME 1 CAP PO (07:58)
[2024-01-02] MEDS: SANTYL OINTMENT 1 APPLIC TOPICAL (07:58)
[2024-01-02] MEDS: AFRIN NASAL SPRAY 1 SPRAYS NASAL (10:09)
[2024-01-02 11:06] LABS: Glucose - Point of Care 182 mg/dl (70-99)
--- NOTE | 2024-01-02 11:56 | W.PN.NEPH.PH ---
Today's Communication / Plan
-
follow BMP
Assessment/Plan
-
IMP:
Diabetic Foot Infection Right Foot, right 5th toe amputation
Sepsis secondary to the above
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
MARYLOU with CKD stage 4
hyponatremia
Acute on chr anemia
A gap met acidosis
ASCVD
Multiple prior CVAs. LINQ recorder recommended; however, patient declined.
Chronic HFpEF
Congenital heart surgery as a child, no records available
Moderate , AR, mild to mod MS
Guillain [place] syndrome, with chronic LLE weakness
Plan:
Dialysis thursday
await SNF bed, liekly thursday
d/w patient dialysis. I do not think she will recover function, but her Cr can be followed once she gets to OP dialysis
I reinforced that dialysis does not change her ability to recover renal function
-
-
Date of Service: January 02, 2024
CC / HPI / ROS
-
Chief Complaint:
MARYLOU with CKD
History of Present Illness:
tolerated HD yesterday
s/p RHC 6/5. PCWP 47
ANDRA therapy directed for anemia
BPs stable
Review of Systems:
no cp or sob
says she is making urine
Labs
-
Labs:
WBC 10.8 10^3/uL (4.8-10.8) 01/01/24 08:39
RBC 3.36 10^6/uL (4.20-5.40) L 01/01/24 08:39
Hgb 8.6 g/dL (12.0-16.0) L 01/01/24 08:39
Hct 28.1 % (37.0-47.0) L 01/01/24 08:39
Plt Count 474 10^3/uL (130-400) H 01/01/24 08:39
Sodium 134 mmol/L (135-145) L 01/01/24 07:56
Potassium 3.6 mmol/L (3.5-5.1) 01/01/24 07:56
Chloride 98 mmol/L (98-107) 01/01/24 07:56
Carbon Dioxide 26 mmol/L (22-30) 01/01/24 07:56
BUN 23 mg/dl (7-17) H 01/01/24 07:56
Creatinine 4.4 mg/dL (0.6-1.0) H* 01/01/24 07:56
eGFR 11.74 01/01/24 07:56
Glucose 147 mg/dl (70-99) H 01/01/24 07:56
Calcium 10.0 mg/dl (8.4-10.2) 01/01/24 07:56
Phosphorus 4.9 mg/dl (2.5-4.5) H 01/01/24 07:56
Bmd-N-Dcgyakpmjtk Pept 90441 pg/ml 12/08/23 08:30
Albumin 3.5 g/dl (3.5-5.0) 01/01/24 07:56
Physical Exam
-
Vital Signs:
Vital Signs
Temp Pulse Resp BP Pulse Ox
98.4 F 90 16 161/75 98
01/02/24 07:00 01/02/24 07:00 01/02/24 07:00 01/02/24 07:00 01/02/24 11:16
Cardiovascular:: Regular rate and rhythm
Respiratory:: Bilateral: Coarse
Lung Excursion:: Normal
Abdomen:: Nontender and Soft
Bowel Sounds:: Normal
Extremity Edema:: None: Bilateral:
--- NOTE | 2024-01-02 12:35 | W.PN.HOSP.TC ---
Today's Communication/Plan
-
waiting snf placement
Assessment / Plan
Assessment / Plan
Lower right foot MRI 12/06
1. 2.5 cm ABSCESS dorsal to the right 5th MTP joint.
2. SOFT TISSUE EMPHYSEMA tracking around the proximal phalanx of the right 5th toe.
3. SEVERE CELLULITIS throughout the right forefoot.
4. No MRI evidence for acute osteomyelitis.
5. Diffuse signal abnormality throughout the muscles of the right foot (either severe diffuse myositis or acute on chronic muscle denervation secondary to diabetes mellitus).
Lower right foot MRI 12/13
1. PROBABLE ACUTE OSTEOMYELITIS in the right 5th metatarsal head and proximal phalanx of the 4th toe.
2. Large 5.0 cm region of nonenhancing soft tissue necrosis in the lateral right forefoot.
3. No MRI evidence for rim-enhancing enhancing fluid collection to suggest an abscess.
4. Recent amputation of the 5th toe.
5. Severe acute myositis or muscle denervation throughout the right foot.
6. Severe diffuse cellulitis.
US abdomen
IMPRESSION:
1. Right lower extremity: IVANIA 1.08 within normal limits. TBI mildly reduced 0.60. Eccentric wall calcification noted in vessels. Proximal superficial femoral artery velocity elevation of 357 cm/s with velocity ratio of 2.22 consistent with at least
50-74% stenosis. Monophasic waveforms noted distal to the stenosis.
2. Left lower extremity: IVANIA 1.31 within normal limits. TBI minimally reduced 0.67. Eccentric wall calcification noted in vessels. Multiphasic waveforms throughout lower extremity arteries with distal superficial femoral artery velocity elevation
245 cm/s and velocity ratio of 2.13 consistent with likely 50-74% stenosis. Multiphasic waveforms are maintained distal to the stenosis. Continuous Doppler waveforms at the dorsalis pedis and posterior tibial arteries also remain multiphasic.

1. Right Diabetic foot infection
s/p 5th toe amputation POD #4 status post diagnostic arteriogram, intravascular lithotripsy of the posterior tibial artery and proximal SFA, balloon angioplasty and nitroglycerin injection of posterior tibial artery on 12/21/23
Right foot cellulitis
-Patient presented for initial right foot fifth dual infection/cellulitis
-MRI of the foot showing soft tissue emphysema/cellulitis and abscess of MTP joint of fifth toe
-Underwent fifth toe amputation by podiatry
-Intraoperative culture growing MSSA/Streptococcus agalactia. Intraoperative bone margin pathology is negative for any osteomyelitis
-Patient started to having new worsening leukocytosis and a repeat MRI on 12/13 showing large soft tissue necrosis area
-Patient underwent debridement of right foot on 12/13 evening by podiatry, repeat wound culture growing bacteroids.
-Underwent revision with 4th toe amp (12/14/23)
-Patient finished course of Ancef > Zosyn > finished Keflex through 12/31
-Started patient on Plavix on 12/22/23 in addition to Aspirin, as recommended by vascular surgery
-Patient can weight bear to right heel and use wheel chair to out of bed.
2. MARYLOU with CKD stage IV
AGAP metabolic acidosis -resolved
Proteinuria
-cr improved to 1.8 with Bumex drip, but then trended up again
-Urine protein/cr ratio of 0.6
-RHC on 12/08 showing PCWP of 47mmHg and was started on Bumex drip, renal function did improve but declined again later .
-Patient started on hemodialysis on 12/16 and able to tolerate without issues - continue dialysis as per nephrology
3. PAD
-Significant arterial disease with possible suggestive of bilateral proximal superficial femoral artery stenosis of 50 to 74% on US
-Status post diagnostic arteriogram, intravascular lithotripsy of the posterior tibial artery and proximal SFA, balloon angioplasty and nitroglycerin injection of posterior tibial artery on 12/21/23
-Continue DAPT
-Aggressive control of arterial disease risk factors
4. Acute on chronic diastolic congestive heart failure
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
-Patient was tried on Bumex drip for volume optimization although continue to have worsening RF
-now on HD
5. Diabetes mellitus
Hypoglycemia
-presumed Type I as diagnosed age 12.
-Diabetes DATA OPERATIONS MANAGER consulted, recommendations appreciated
-Insulin being adjusted as appropriate
6. Iron def anemia
Acute blood loss anemia from post op
-Ferritin of 74.6 with saturation of 12% and acute phase suggestive of iron deficiency anemia
-Got 7 doses of IV Ferrlecit.
-Patient has significant blood loss from surgical site debridement required multiple dressing and localized thrombin rx
-Required total 3 U PRBC this visit.
7. h/o of CVA
Legally blind in right eye
- Multiple prior CVAs. LINQ recorder recommended; however, patient declined.
- Continue daily ASA/plavix
8. Paroxysmal SVT
-Continue metoprolol succinate qhs 25 mg
9. Diarrhea -- likely antibiotic-associated diarrhea -- RESOLVED
-Stool studies ordered -- C. diff negative
-Probiotic
-GI consulted, recommendations appreciated
-Continue prn Imodium
10. Epistaxis
-minimal and continue prn afrin spray
Guillain [place] syndrome, with chronic LLE weakness
Hyponatremia
Moderate /AR
Mild to mod MS
DVT Prophylaxis: Heparin Subq
Code Status: Full
12/28 Patient not a candidate for acute rehab. Patient initially hesitant to agree for SNF rehab although after discussion agreeable for snf discharge.
Anticipated Discharge: > 48 hours
Subjective/Interval History
-
Date of Service: January 02, 2024
minor nose bleed
no other issues reported
Objective Data
-
Vital Signs:
Vital Signs
Temp Pulse Resp BP Pulse Ox
98.4 F 90 16 161/75 98
01/02/24 07:00 01/02/24 07:00 01/02/24 07:00 01/02/24 07:00 01/02/24 11:16
I&O
01/01/24 01/02/24 01/03/24
06:59 06:59 06:59
Intake Total 480 / 480 1320 / 1320
Output Total 250 / 250
Balance 230 / 230 1320 / 1320
Review of Systems
-
Respiratory: Reports No Symptoms
Cardiac: Reports No Symptoms
Abdomen/GI: Reports No Symptoms
Physical Exam
-
General: Comfortable; Negative Obese
HEENT: Negative Oxygen
Respiratory: Clear to Auscultation
Cardiac: Regular Rhythm and S1/S2; Negative Murmur
GI: Soft, Nontender and Nondistended
Musculoskeletal: Other (Right lower extremity dressing in place )
Neuro: Awake, Alert, Oriented and No Motor Deficits
Psych: Calm
[2024-01-02] MEDS: DIFLUCAN 200 MG PO (13:27)
[2024-01-02 15:50] VITALS: BP 181/78
[2024-01-02 17:03] LABS: Glucose - Point of Care 252 mg/dl (70-99)
[2024-01-02] MEDS: LIPITOR 80 MG PO (17:25)
[2024-01-02 18:25] VITALS: BP 180/85
[2024-01-02 21:05] LABS: Glucose - Point of Care 190 mg/dl (70-99)
[2024-01-02] MEDS: TOPROL XL 25 MG PO (21:23)
[2024-01-02] MEDS: LANTUS 0.0200000000000000004 UNITS SC (21:26)
[2024-01-02] MEDS: HEPARIN SC (21:26)
[2024-01-02 22:38] VITALS: BP 129/78
[2024-01-03] MEDS: TYLENOL 1000 MG PO ×3 (04:21→21:07)
[2024-01-03 06:00] VITALS: BMI 27.0
[2024-01-03 07:04] VITALS: BP 161/79
[2024-01-03 07:38] LABS: Blood Urea Nitrogen 27 mg/dl (7-17); Calcium 9.5 mg/dl (8.4-10.2); Carbon Dioxide 26 mmol/L (22-30); Chloride 100 mmol/L (98-107); Estimated Creatinine Clearance 19 ml/min; Glucose 133 mg/dl (70-99); Sodium 136 mmol/L (135-145); eGFR 16.59
[2024-01-03 07:42] LABS: Glucose - Point of Care 135 mg/dl (70-99)
[2024-01-03] MEDS: SANTYL OINTMENT 1 APPLIC TOPICAL (08:42)
[2024-01-03] MEDS: ASPIR LOW (ENTERIC COATED) 81 MG PO (08:42)
[2024-01-03] MEDS: VISBIOME 1 CAP PO (08:42)
[2024-01-03] MEDS: HEPARIN SC ×2 (08:43→21:05)
[2024-01-03] MEDS: PLAVIX 75 MG PO (08:43)
[2024-01-03] MEDS: NOVOLOG FLEXPEN-LOW RESISTANCE SC ×3 (08:43→17:51)
[2024-01-03] MEDS: NOVOLOG FLEXPEN 3 UNITS SC ×3 (08:46→17:51)
--- NOTE | 2024-01-03 11:36 | W.PN.NEPH.PH ---
Today's Communication / Plan
-
HD tomorrow
Assessment/Plan
-
IMP:
Diabetic Foot Infection Right Foot, right 5th toe amputation
Sepsis secondary to the above
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
MARYLOU with CKD stage 4
hyponatremia
Acute on chr anemia
A gap met acidosis
ASCVD
Multiple prior CVAs. LINQ recorder recommended; however, patient declined.
Chronic HFpEF
Congenital heart surgery as a child, no records available
Moderate , AR, mild to mod MS
Guillain [place] syndrome, with chronic LLE weakness
Plan:
Dialysis thursday
await SNF bed, likely thursday
follow Cr trend for possibility of recovery
-
-
Date of Service: January 03, 2024
CC / HPI / ROS
-
Chief Complaint:
MARYLOU with CKD
History of Present Illness:
tolerated HD thursday
Cr 3.3 today
s/p RHC /. PCWP 47
ANDRA therapy directed for anemia
BPs stable
Review of Systems:
no cp or sob
says she is making urine
Labs
-
Labs:
WBC 10.8 10^3/uL (4.8-10.8) 01/01/24 08:39
RBC 3.36 10^6/uL (4.20-5.40) L 01/01/24 08:39
Hgb 8.6 g/dL (12.0-16.0) L 01/01/24 08:39
Hct 28.1 % (37.0-47.0) L 01/01/24 08:39
Plt Count 474 10^3/uL (130-400) H 01/01/24 08:39
Sodium 136 mmol/L (135-145) 01/03/24 06:55
Potassium 4.0 mmol/L (3.5-5.1) 01/03/24 06:55
Chloride 100 mmol/L (98-107) 01/03/24 06:55
Carbon Dioxide 26 mmol/L (22-30) 01/03/24 06:55
BUN 27 mg/dl (7-17) H 01/03/24 06:55
Creatinine 3.3 mg/dL (0.6-1.0) H 01/03/24 06:55
eGFR 16.59 01/03/24 06:55
Glucose 133 mg/dl (70-99) H 01/03/24 06:55
Calcium 9.5 mg/dl (8.4-10.2) 01/03/24 06:55
Phosphorus 4.9 mg/dl (2.5-4.5) H 01/01/24 07:56
Rrd-V-Mwgpsumykrg Pept 15249 pg/ml 12/08/23 08:30
Albumin 3.5 g/dl (3.5-5.0) 01/01/24 07:56
Physical Exam
-
Vital Signs:
Vital Signs
Temp Pulse Resp BP Pulse Ox
97.8 F 85 16 161/79 100
01/03/24 07:04 01/03/24 07:04 01/03/24 07:04 01/03/24 07:04 01/03/24 07:04
Cardiovascular:: Regular rate and rhythm
Respiratory:: Bilateral: Coarse
Lung Excursion:: Normal
Abdomen:: Nontender and Soft
Bowel Sounds:: Normal
Extremity Edema:: +1: Bilateral:
[2024-01-03 12:17] LABS: Glucose - Point of Care 165 mg/dl (70-99)
[2024-01-03] MEDS: PROCARDIA XL (EXTENDED RELEASE) 30 MG PO ×2 (12:59→21:06)
--- NOTE | 2024-01-03 14:38 | W.PN.HOSP.TC ---
Addendum entered and electronically signed by Denny Haq MD 01/03/24 15:23:
Discussed with parts cataloguer and recommended crutches and weight bearing on heel if can not use surgical shoe
Original Note:
Today's Communication/Plan
-
SNF rehab placement
Assessment / Plan
Assessment / Plan
Lower right foot MRI 12/06
1. 2.5 cm ABSCESS dorsal to the right 5th MTP joint.
2. SOFT TISSUE EMPHYSEMA tracking around the proximal phalanx of the right 5th toe.
3. SEVERE CELLULITIS throughout the right forefoot.
4. No MRI evidence for acute osteomyelitis.
5. Diffuse signal abnormality throughout the muscles of the right foot (either severe diffuse myositis or acute on chronic muscle denervation secondary to diabetes mellitus).
Lower right foot MRI 12/13
1. PROBABLE ACUTE OSTEOMYELITIS in the right 5th metatarsal head and proximal phalanx of the 4th toe.
2. Large 5.0 cm region of nonenhancing soft tissue necrosis in the lateral right forefoot.
3. No MRI evidence for rim-enhancing enhancing fluid collection to suggest an abscess.
4. Recent amputation of the 5th toe.
5. Severe acute myositis or muscle denervation throughout the right foot.
6. Severe diffuse cellulitis.
US abdomen
IMPRESSION:
1. Right lower extremity: IVANIA 1.08 within normal limits. TBI mildly reduced 0.60. Eccentric wall calcification noted in vessels. Proximal superficial femoral artery velocity elevation of 357 cm/s with velocity ratio of 2.22 consistent with at least
50-74% stenosis. Monophasic waveforms noted distal to the stenosis.
2. Left lower extremity: IVANIA 1.31 within normal limits. TBI minimally reduced 0.67. Eccentric wall calcification noted in vessels. Multiphasic waveforms throughout lower extremity arteries with distal superficial femoral artery velocity elevation
245 cm/s and velocity ratio of 2.13 consistent with likely 50-74% stenosis. Multiphasic waveforms are maintained distal to the stenosis. Continuous Doppler waveforms at the dorsalis pedis and posterior tibial arteries also remain multiphasic.

1. Right Diabetic foot infection
s/p 5th toe amputation POD #4 status post diagnostic arteriogram, intravascular lithotripsy of the posterior tibial artery and proximal SFA, balloon angioplasty and nitroglycerin injection of posterior tibial artery on 12/21/23
Right foot cellulitis
-Patient presented for initial right foot fifth dual infection/cellulitis
-MRI of the foot showing soft tissue emphysema/cellulitis and abscess of MTP joint of fifth toe
-Underwent fifth toe amputation by podiatry
-Intraoperative culture growing MSSA/Streptococcus agalactia. Intraoperative bone margin pathology is negative for any osteomyelitis
-Patient started to having new worsening leukocytosis and a repeat MRI on 12/13 showing large soft tissue necrosis area
-Patient underwent debridement of right foot on 12/13 evening by podiatry, repeat wound culture growing bacteroids.
-Underwent revision with 4th toe amp (12/14/23)
-Patient finished course of Ancef > Zosyn > finished Keflex through 12/31
-Started patient on Plavix on 12/22/23 in addition to Aspirin, as recommended by vascular surgery
-Patient can weight bear to right heel and use wheel chair to out of bed.
2. MARYLOU with CKD stage IV
AGAP metabolic acidosis -resolved
Proteinuria
-cr improved to 1.8 with Bumex drip, but then trended up again
-RHC on 12/08 showing PCWP of 47mmHg and was started on Bumex drip, renal function did improve but declined again later .
-Patient started on hemodialysis on 12/16 and able to tolerate without issues - continue dialysis as per nephrology
-Patient making some urine although not significant enough to sustain without need of dialysis. Nonetheless patient remains hopeful.
3. PAD
-Significant arterial disease with possible suggestive of bilateral proximal superficial femoral artery stenosis of 50 to 74% on US
-Status post diagnostic arteriogram, intravascular lithotripsy of the posterior tibial artery and proximal SFA, balloon angioplasty and nitroglycerin injection of posterior tibial artery on 12/21/23
-Continue DAPT
-Aggressive control of arterial disease risk factors
4. Acute on chronic diastolic congestive heart failure
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
-Patient was tried on Bumex drip for volume optimization although continue to have worsening RF
-now on HD
5. Diabetes mellitus
Hypoglycemia
-presumed Type I as diagnosed age 12.
-Diabetes GAS INSPECTOR consulted, recommendations appreciated
-Insulin being adjusted as appropriate
6. Iron def anemia
Acute blood loss anemia from post op
-Ferritin of 74.6 with saturation of 12% and acute phase suggestive of iron deficiency anemia
-Got 7 doses of IV Ferrlecit.
-Patient has significant blood loss from surgical site debridement required multiple dressing and localized thrombin rx
-Required total 3 U PRBC this visit.
7. h/o of CVA
Legally blind in right eye
- Multiple prior CVAs. LINQ recorder recommended; however, patient declined.
- Continue daily ASA/plavix
8. Paroxysmal SVT
-Continue metoprolol succinate qhs 25 mg
9. Diarrhea -- likely antibiotic-associated diarrhea -- RESOLVED
-Stool studies ordered -- C. diff negative
-Probiotic
-GI consulted, recommendations appreciated
-Continue prn Imodium
10. Epistaxis
-minimal and continue prn afrin spray
Guillain [place] syndrome, with chronic LLE weakness
Hyponatremia
Moderate /AR
Mild to mod MS
DVT Prophylaxis: Heparin Subq
Code Status: Full
12/28 Patient not a candidate for acute rehab. Patient initially hesitant to agree for SNF rehab although after discussion agreeable for snf discharge.
Anticipated Discharge: 24 - 48 hours
Subjective/Interval History
-
Date of Service: January 03, 2024
No reported problems overnight
Objective Data
-
Labs:
Laboratory Results
01/03/24
06:55
Sodium 136
Potassium 4.0
Chloride 100
Carbon Dioxide 26
BUN 27 H
Creatinine 3.3 H
Glucose 133 H
Calcium 9.5
Vital Signs:
Vital Signs
Temp Pulse Resp BP Pulse Ox
97.8 F 85 16 161/79 98
01/03/24 07:04 01/03/24 07:04 01/03/24 07:04 01/03/24 07:04 01/03/24 08:00
I&O
01/02/24 01/03/24 01/04/24
06:59 06:59 06:59
Intake Total 1320 / 1320 810 / 810
Output Total 200 / 200
Balance 1320 / 1320 610 / 610
Review of Systems
-
Respiratory: Reports No Symptoms
Cardiac: Reports No Symptoms
Abdomen/GI: Reports No Symptoms
Physical Exam
-
General: Comfortable; Negative Obese
HEENT: Negative Oxygen
Respiratory: Clear to Auscultation
Cardiac: Regular Rhythm and S1/S2; Negative Murmur
GI: Soft, Nontender and Nondistended
Musculoskeletal: Other (Right lower extremity dressing in place )
Neuro: Awake, Alert, Oriented and No Motor Deficits
Psych: Calm
[2024-01-03 15:08] VITALS: BP 111/60
[2024-01-03 16:44] LABS: Glucose - Point of Care 187 mg/dl (70-99)
[2024-01-03] MEDS: LIPITOR 80 MG PO (17:51)
[2024-01-03] MEDS: TOPROL XL PO (21:07)
[2024-01-03 21:09] LABS: Glucose - Point of Care 226 mg/dl (70-99)
[2024-01-03] MEDS: LANTUS 0.0200000000000000004 UNITS SC (21:54)
[2024-01-03 22:50] VITALS: BP 126/59
[2024-01-04] MEDS: TYLENOL PO (03:59)
[2024-01-04 06:00] VITALS: BMI 27.2
[2024-01-04 07:20] VITALS: BP 134/66
[2024-01-04 07:38] LABS: Glucose - Point of Care 167 mg/dl (70-99)
[2024-01-04 08:08] LABS: Hematocrit 26.2 % (37.0-47.0); Hemoglobin 8.2 g/dL (12.0-16.0)
[2024-01-04] MEDS: RETACRIT 8000 UNITS IV (08:17)
--- NOTE | 2024-01-04 08:20 | W.PN.HOSP.TC ---
Today's Communication/Plan
-
Dr. Casey (podiatry) will see patient tomorrow and assess if okay to use any shoe or boot
Blood pressure is well-controlled, patient has been having dizziness with Procardia -- Procardia stopped
Assessment / Plan
Assessment / Plan
Physical Exam
General: Comfortable; Negative Obese
HEENT: Negative Oxygen
Respiratory: Clear to Auscultation
Cardiac: Regular Rhythm and S1/S2; Negative Murmur
GI: Soft, Nontender and Nondistended
Musculoskeletal: Other (Right lower extremity dressing in place )
Neuro: Awake, Alert, Oriented and No Motor Deficits
Psych: Calm

Lower right foot MRI 12/06
1. 2.5 cm ABSCESS dorsal to the right 5th MTP joint.
2. SOFT TISSUE EMPHYSEMA tracking around the proximal phalanx of the right 5th toe.
3. SEVERE CELLULITIS throughout the right forefoot.
4. No MRI evidence for acute osteomyelitis.
5. Diffuse signal abnormality throughout the muscles of the right foot (either severe diffuse myositis or acute on chronic muscle denervation secondary to diabetes mellitus).
Lower right foot MRI 12/13
1. PROBABLE ACUTE OSTEOMYELITIS in the right 5th metatarsal head and proximal phalanx of the 4th toe.
2. Large 5.0 cm region of nonenhancing soft tissue necrosis in the lateral right forefoot.
3. No MRI evidence for rim-enhancing enhancing fluid collection to suggest an abscess.
4. Recent amputation of the 5th toe.
5. Severe acute myositis or muscle denervation throughout the right foot.
6. Severe diffuse cellulitis.
US abdomen
IMPRESSION:
1. Right lower extremity: IVANIA 1.08 within normal limits. TBI mildly reduced 0.60. Eccentric wall calcification noted in vessels. Proximal superficial femoral artery velocity elevation of 357 cm/s with velocity ratio of 2.22 consistent with at least
50-74% stenosis. Monophasic waveforms noted distal to the stenosis.
2. Left lower extremity: IVANIA 1.31 within normal limits. TBI minimally reduced 0.67. Eccentric wall calcification noted in vessels. Multiphasic waveforms throughout lower extremity arteries with distal superficial femoral artery velocity elevation
245 cm/s and velocity ratio of 2.13 consistent with likely 50-74% stenosis. Multiphasic waveforms are maintained distal to the stenosis. Continuous Doppler waveforms at the dorsalis pedis and posterior tibial arteries also remain multiphasic.

Assessment/Plan
1. Right Diabetic foot infection
s/p 5th toe amputation POD #4 status post diagnostic arteriogram, intravascular lithotripsy of the posterior tibial artery and proximal SFA, balloon angioplasty and nitroglycerin injection of posterior tibial artery on 12/21/23
Right foot cellulitis
-Patient presented for initial right foot fifth dual infection/cellulitis
-MRI of the foot showing soft tissue emphysema/cellulitis and abscess of MTP joint of fifth toe
-Underwent fifth toe amputation by podiatry
-Intraoperative culture growing MSSA/Streptococcus agalactia. Intraoperative bone margin pathology is negative for any osteomyelitis
-Patient started to having new worsening leukocytosis and a repeat MRI on 12/13 showing large soft tissue necrosis area
-Patient underwent debridement of right foot on 12/13 evening by podiatry, repeat wound culture growing bacteroids.
-Underwent revision with 4th toe amp (12/14/23)
-Patient finished course of Ancef > Zosyn > finished Keflex through 12/31
-Started patient on Plavix on 12/22/23 in addition to Aspirin, as recommended by vascular surgery
-Patient can weight bear to right heel and use wheel chair to out of bed.
2. MARYLOU with CKD stage IV
AGAP metabolic acidosis -resolved
Proteinuria
-cr improved to 1.8 with Bumex drip, but then trended up again
-RHC on 12/08 showing PCWP of 47mmHg and was started on Bumex drip, renal function did improve but declined again later .
-Patient started on hemodialysis on 12/16 and able to tolerate without issues - continue dialysis as per nephrology
-Patient making some urine although not significant enough to sustain without need of dialysis. Nonetheless patient remains hopeful.
3. PAD
-Significant arterial disease with possible suggestive of bilateral proximal superficial femoral artery stenosis of 50 to 74% on US
-Status post diagnostic arteriogram, intravascular lithotripsy of the posterior tibial artery and proximal SFA, balloon angioplasty and nitroglycerin injection of posterior tibial artery on 12/21/23
-Continue DAPT
-Aggressive control of arterial disease risk factors
4. Acute on chronic diastolic congestive heart failure
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
-Patient was tried on Bumex drip for volume optimization although continue to have worsening RF
-now on HD
5. Diabetes mellitus
Hypoglycemia
-presumed Type I as diagnosed age 12.
-Diabetes DWARF TREE GROWER consulted, recommendations appreciated
-Insulin being adjusted as appropriate
6. Iron def anemia
Acute blood loss anemia from post op
-Ferritin of 74.6 with saturation of 12% and acute phase suggestive of iron deficiency anemia
-Got 7 doses of IV Ferrlecit.
-Patient has significant blood loss from surgical site debridement required multiple dressing and localized thrombin rx
-Required total 3 U PRBC this visit.
7. h/o of CVA
Legally blind in right eye
- Multiple prior CVAs. LINQ recorder recommended; however, patient declined.
- Continue daily ASA/plavix
8. Paroxysmal SVT
-Continue metoprolol succinate qhs 25 mg
9. Diarrhea -- likely antibiotic-associated diarrhea -- RESOLVED
-Stool studies ordered -- C. diff negative
-Probiotic
-GI consulted, recommendations appreciated
-Continue prn Imodium
10. Epistaxis
-minimal and continue prn afrin spray
Guillain [place] syndrome, with chronic LLE weakness
Hyponatremia
Moderate /AR
Mild to mod MS
DVT Prophylaxis: Heparin Subq
Code Status: Full
12/28 Patient not a candidate for acute rehab. Patient initially hesitant to agree for SNF rehab although after discussion agreeable for snf discharge.
Anticipated Discharge: Within 24 hours
Subjective/Interval History
-
Date of Service: January 04, 2024
Patient was seen and examined. She reported not feeling good and feeling dizzy with the Procardia, she would like to stop the Procardia.
Objective Data
-
Labs:
Laboratory Results
01/04/24
07:39
Hgb 8.2 L
Hct 26.2 L
Sodium Pending
Potassium Pending
Chloride Pending
Carbon Dioxide Pending
BUN Pending
Creatinine Pending
Glucose Pending
Calcium Pending
Vital Signs:
Vital Signs
Temp Pulse Resp BP Pulse Ox
98.6 F 81 20 134/66 96
01/04/24 07:20 01/04/24 07:20 01/04/24 07:20 01/04/24 07:20 01/04/24 07:20
I&O
01/03/24 01/04/24 01/05/24
06:59 06:59 06:59
Intake Total 810 / 810 240 / 240
Output Total 200 / 200 175 / 175
Balance 610 / 610 65 / 65
[2024-01-04] MEDS: NOVOLOG FLEXPEN SC (08:26)
[2024-01-04] MEDS: HEPARIN SC ×2 (08:28→21:28)
[2024-01-04] MEDS: NOVOLOG FLEXPEN-LOW RESISTANCE SC ×3 (08:28→17:08)
--- NOTE | 2024-01-04 08:29 | PN.DE.MGMTRT ---
Insulin Management
- -
01/04/2024: Diabetes Management F/U
Patient admitted 12/05 with Right fifth toe discoloration, open wound.
PMH: CAD(CABG 1981), CKD, CVA x2, HTN, Retinopathy, CHF and T2DM. A1C 9.2%, Cr 3.0 eGFR 18.59, was taking Lantus 18-20 units @ HS and Lispro 4 units AC. Patient states she was diagnosed with diabetes at age 12 and started insulin at age 13. She
states her A1C is greatly improved. She has a glucose monitor and tests daily. HD cath placed, HD started 12/16.
POD # 28 s/p Right 5th toe amputation, POD #21 s/p tissue debridement R foot and amputation 4th toe, POD #11 s/p Rt foot debridement of eschar and bone resection form distal 4th and 5th metatarsals.
Patient awake alert and oriented.
Glucose range 135 to 187 yesterday, HS glucose 226, Fasting glucose 167 this AM.
Will make no changes to current regimen. Continue Lantus 2 units @ HS and NovoLog 3 units AC.
Discussed with pt importance of optimal glucose control and taking insulin consistently.
Will cont to follow and adjust insulin dose if necessary
Diabetes History
- -
Type of Diabetes: 1
Pre-Admission Diabetes Regimen
Lab Results
Hemoglobin A1c 9.2 % (4.0-5.6) H 12/06/23 08:12
Insulin Pump Settings
IP Diabetes Regimen
01/03/24 01/03/24 01/03/24
12:15 16:43 21:08
POC Glucose 165 H 187 H 226 H
01/04/24
07:36
POC Glucose 167 H
Meal type: Dinner
Meal type: Lunch
Amount consumed: Patient refused
Amount consumed: 75%
Patient Education
[2024-01-04 08:33] LABS: Albumin 3.3 g/dl (3.5-5.0); Blood Urea Nitrogen 37 mg/dl (7-17); Calcium 9.3 mg/dl (8.4-10.2); Carbon Dioxide 27 mmol/L (22-30); Chloride 99 mmol/L (98-107); Estimated Creatinine Clearance 17 ml/min; Glucose 167 mg/dl (70-99); Phosphorus 5.9 mg/dl (2.5-4.5); Potassium 3.6 mmol/L (3.5-5.1); Sodium 135 mmol/L (135-145); eGFR 13.57
--- NOTE | 2024-01-04 10:40 | W.PN.NEPH.HD ---
Assessment
-
Patient seen on dialysis
Systolic blood pressure 131 at current UF
Stable for discharge from nephrology standpoint
Creatinine continues to rise from 3.3-3.9 today, ongoing dialysis requirement noted although she is technically MARYLOU
Progress Note - Hemodialysis
-
Date of Service: January 04, 2024
Duration: 30 minutes and 3 hours
Potassium Bath: 3
Calcium Bath: 2.5
Opti-Dialyzer: 160
Ultrafiltration: Other (2 kg)
Blood Flow: 400
Dialysate Flow: 600
Heparin: None
EPO: 8000
--- NOTE | 2024-01-04 11:00 | CM ---
Call placed to [facility] [phone]. They have just received the paperwork this morning, so the approval for the dialysis chair is still pending. Heidi to call CM office when chair has been approved.
CM to follow for transfer to [facility] once dialysis chair has been approved.
[2024-01-04] MEDS: HEPARIN 3200 UNITS INTRACATH (11:12)
[2024-01-04 11:27] LABS: Glucose - Point of Care 100 mg/dl (70-99)
[2024-01-04] MEDS: PLAVIX 75 MG PO (12:25)
[2024-01-04] MEDS: NOVOLOG FLEXPEN 3 UNITS SC ×2 (12:26→17:06)
[2024-01-04] MEDS: PROCARDIA XL (EXTENDED RELEASE) 30 MG PO (12:26)
[2024-01-04] MEDS: ASPIR LOW (ENTERIC COATED) 81 MG PO (12:26)
[2024-01-04] MEDS: VISBIOME 1 CAP PO (12:26)
[2024-01-04] MEDS: SANTYL OINTMENT 1 APPLIC TOPICAL (12:26)
[2024-01-04] MEDS: TYLENOL 1000 MG PO ×2 (12:35→21:32)
[2024-01-04] MEDS: AFRIN NASAL SPRAY 1 SPRAYS NASAL (12:35)
[2024-01-04 14:09] LABS: Glucose - Point of Care 153 mg/dl (70-99)
--- NOTE | 2024-01-04 14:45 | PTCARENOTE ---
1400 Pt had just walked back from bathroom, c/o dizziness, felt blood sugar low, recheck blood sugar result 153. Recheck BP 109/46 HR 94 resp 18 temp 97.7 Pulse ox 99% on room air. Pt mention Procardia blood pressure med is too much for me and
stated that her Blood pressure may go up due to her stress.[id number] Dr. Castillo notified and here to see pt at bedside and discuss with pt, Procardia will be discontinued, continue to monitor pt closely.
--- NOTE | 2024-01-04 15:18 | CM ---
Call received from Ana Paula Calix of [facility] to confirm chair time for dialysis at [facility]

Fax: [phone]
Joana Mena advised of available chair time and able to admit Shea today.
I spoke with Shea about the chair time (arrive 10:30 for first visit, 11:00 for all other visits.)
Bed is available at [facility] for today, however it is unclear if she will be discharged today. She is asking about a 'boot' that was to be ordered; RN is looking into this. [facility] made aware of possible delay in
discharge.
Plan: Await clearance for discharge.
[2024-01-04 15:29] VITALS: BP 119/62
[2024-01-04 16:53] LABS: Glucose - Point of Care 162 mg/dl (70-99)
[2024-01-04] MEDS: LIPITOR 80 MG PO (17:05)
[2024-01-04 21:03] LABS: Glucose - Point of Care 168 mg/dl (70-99)
[2024-01-04] MEDS: MONISTAT 7 VAGINAL CREAM 1 APPLIC VAG (21:32)
[2024-01-04] MEDS: LANTUS 0.0200000000000000004 UNITS SC (21:32)
[2024-01-04] MEDS: TOPROL XL 25 MG PO (21:32)
[2024-01-05] MEDS: TYLENOL PO (04:42)
[2024-01-05 06:00] VITALS: BMI 26.8
[2024-01-05 07:16] LABS: Hematocrit 29.6 % (37.0-47.0); Mean Corp Hgb Conc. 30.4 g/dL (33.0-37.0); Mean Corpuscular Hgb 25.5 pg (27.0-31.0); Mean Corpuscular Volume 83.9 fL (81.0-99.0); Mean Platelet Volume 9.2 fL (7.4-10.4); Platelet Count 354 10^3/uL (130-400); Red Blood Cell Count 3.53 10^6/uL (4.20-5.40); Red Cell Dist. Width 23.3 % (11.5-14.5); White Blood Cell Count 9.5 10^3/uL (4.8-10.8)
[2024-01-05 07:36] VITALS: BP 126/60
[2024-01-05 07:56] LABS: Glucose - Point of Care 140 mg/dl (70-99)
[2024-01-05 08:05] LABS: Carbon Dioxide 25 mmol/L (22-30); Estimated Creatinine Clearance 25 ml/min; eGFR 22.08
--- NOTE | 2024-01-05 08:18 | PN.DE.MGMTRT ---
Insulin Management
- -
01/05/2024: Diabetes Management Follow up
Patient admitted 12/05 with Right fifth toe discoloration, open wound.
PMH: CAD(CABG 1981), CKD, CVA x2, HTN, Retinopathy, CHF and T2DM. A1C 9.2%, Cr 3.0 eGFR 18.59, was taking Lantus 18-20 units @ HS and Lispro 4 units AC. Patient states she was diagnosed with diabetes at age 12 and started insulin at age 13. She
states her A1C is greatly improved. She has a glucose monitor and tests daily. HD cath placed, HD started 12/16.
POD # 29 s/p Right 5th toe amputation, POD #22 s/p tissue debridement R foot and amputation 4th toe, POD #12 s/p Rt foot debridement of eschar and bone resection form distal 4th and 5th metatarsals.
Patient awake alert and oriented.
Glucose range 100 to 168 yesterday, fasting glucose 167 this AM.
Will make no changes to current regimen. Continue Lantus 2 units @ HS and NovoLog 3 units AC.
Discussed with pt importance of optimal glucose control and taking insulin consistently.
Will cont to follow and adjust insulin dose if necessary
Diabetes History
- -
Type of Diabetes: 2 requiring insulin
Pre-Admission Diabetes Regimen
01/04/24 01/05/24
07:39 06:33
Creatinine 3.9 H 2.6 H
Lab Results
Hemoglobin A1c 9.2 % (4.0-5.6) H 12/06/23 08:12
Insulin Pump Settings
IP Diabetes Regimen
01/04/24 01/04/24 01/04/24
07:39 11:25 14:07
Glucose 167 H
POC Glucose 100 H 153 H
01/04/24 01/04/24 01/05/24
16:51 21:02 07:51
Glucose
POC Glucose 162 H 168 H 140 H
Meal type: Lunch
Meal type: Breakfast
Amount consumed: 50%
Amount consumed: 0
Patient Education
[2024-01-05 08:23] LABS: Blood Urea Nitrogen 25 mg/dl (7-17); Chloride 98 mmol/L (98-107); Glucose 135 mg/dl (70-99); Potassium 3.7 mmol/L (3.5-5.1); Sodium 134 mmol/L (135-145)
[2024-01-05] MEDS: NOVOLOG FLEXPEN-LOW RESISTANCE SC ×2 (08:48→16:23)
[2024-01-05] MEDS: ASPIR LOW (ENTERIC COATED) 81 MG PO (08:50)
[2024-01-05] MEDS: VISBIOME 1 CAP PO (08:50)
[2024-01-05] MEDS: NOVOLOG FLEXPEN 3 UNITS SC ×2 (08:50→12:43)
[2024-01-05] MEDS: PLAVIX 75 MG PO (08:51)
[2024-01-05] MEDS: HEPARIN SC (08:51)
[2024-01-05] MEDS: SANTYL OINTMENT 1 APPLIC TOPICAL (08:51)
--- NOTE | 2024-01-05 11:38 | W.PN.NEPH.PH ---
Today's Communication / Plan
-
dc
Assessment/Plan
-
IMP:
Diabetic Foot Infection Right Foot, right 5th toe amputation
Sepsis secondary to the above
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
MARYLOU with CKD stage 4
hyponatremia
Acute on chr anemia
A gap met acidosis
ASCVD
Multiple prior CVAs. LINQ recorder recommended; however, patient declined.
Chronic HFpEF
Congenital heart surgery as a child, no records available
Moderate , AR, mild to mod MS
Guillain [place] syndrome, with chronic LLE weakness
Plan:
for dc
next HD thursday at OP facility
follow Cr trend for possibility of recovery
-
-
Date of Service: January 05, 2024
CC / HPI / ROS
-
Chief Complaint:
MARYLOU with CKD
History of Present Illness:
tolerated HD thursday
Cr 2.6 today
s/p RHC 6/5. PCWP 47
ANDRA therapy directed for anemia
BPs stable
Review of Systems:
no cp or sob
says she is making urine
Labs
-
Labs:
WBC 9.5 10^3/uL (4.8-10.8) 01/05/24 06:33
RBC 3.53 10^6/uL (4.20-5.40) L 01/05/24 06:33
Hgb 9.0 g/dL (12.0-16.0) L 01/05/24 06:33
Hct 29.6 % (37.0-47.0) L 01/05/24 06:33
Plt Count 354 10^3/uL (130-400) D 01/05/24 06:33
Sodium 134 mmol/L (135-145) L 01/05/24 06:33
Potassium 3.7 mmol/L (3.5-5.1) 01/05/24 06:33
Chloride 98 mmol/L (98-107) 01/05/24 06:33
Carbon Dioxide 25 mmol/L (22-30) 01/05/24 06:33
BUN 25 mg/dl (7-17) H 01/05/24 06:33
Creatinine 2.6 mg/dL (0.6-1.0) H 01/05/24 06:33
eGFR 22.08 01/05/24 06:33
Glucose 135 mg/dl (70-99) H 01/05/24 06:33
Calcium 9.0 mg/dl (8.4-10.2) 01/05/24 06:33
Phosphorus 5.9 mg/dl (2.5-4.5) H 01/04/24 07:39
Zks-D-Dskfichumfg Pept 80765 pg/ml 12/08/23 08:30
Albumin 3.3 g/dl (3.5-5.0) L 01/04/24 07:39
Physical Exam
-
Vital Signs:
Vital Signs
Temp Pulse Resp BP Pulse Ox
98.1 F 91 20 126/60 97
01/05/24 07:36 01/05/24 07:36 01/05/24 07:36 01/05/24 07:36 01/05/24 07:36
Cardiovascular:: Regular rate and rhythm
Respiratory:: Bilateral: Coarse
Lung Excursion:: Normal
Abdomen:: Nontender and Soft
Bowel Sounds:: Normal
Extremity Edema:: None: Bilateral:
[2024-01-05 11:47] LABS: Glucose - Point of Care 193 mg/dl (70-99)
[2024-01-05 12:22] VITALS: BP 170/83; PULSE 96; O2SAT 96
[2024-01-05] MEDS: NOVOLOG FLEXPEN-LOW RESISTANCE 1 UNITS SC (12:43)
[2024-01-05] MEDS: TYLENOL 1000 MG PO (12:48)
--- NOTE | 2024-01-05 13:34 | CM ---
Addendum entered by Ashlyn Casanova 01/05/24 13:46:
[facility]
Report# [phone]

Original Note:
Per Joana from [facility], bed available at facility today.
Per patient she requested a private room, Joana stated room is is semi private without anyone in the second bed as of now.
Per Joana they are able to accept patient with original authorization (good for 72 hours).
CM verified authorization still good with [facility] from [address] at [phone]
Patient will require WC van, per [facility] [address], needs to be precerted with [facility].
TC to [facility] [phone]-spoke with Sig, this is a covered benefit. She sent auth to Acute [facility].
Den from [facility] updated.
Received confirmation from Theresa KANG for HD M-W-F 11 am, arrive 10:30 am on ThursdayJanuary 05 10:30 am.
Copy given to patient, placed in chart and sent with transfer packet.
Plan: [facility] today via WC van
--- NOTE | 2024-01-05 15:20 | W.PN.HOSP.TC ---
Today's Communication/Plan
-
Discharge today
Assessment / Plan
Assessment / Plan
Physical Exam
General: Not in acute distress.
HEENT: Normocephalic.
Respiratory: Clear to Auscultation Bilaterally.
Cardiac: Regular Rhythm and S1/S2.
GI: Soft, Nontender and Nondistended. Positive bowel sounds.
Musculoskeletal: Other (Right lower extremity dressing in place )
Neuro: Awake, Alert, Oriented and No Motor Deficits
Psych: Calm

Lower right foot MRI 12/06
1. 2.5 cm ABSCESS dorsal to the right 5th MTP joint.
2. SOFT TISSUE EMPHYSEMA tracking around the proximal phalanx of the right 5th toe.
3. SEVERE CELLULITIS throughout the right forefoot.
4. No MRI evidence for acute osteomyelitis.
5. Diffuse signal abnormality throughout the muscles of the right foot (either severe diffuse myositis or acute on chronic muscle denervation secondary to diabetes mellitus).
Lower right foot MRI 12/13
1. PROBABLE ACUTE OSTEOMYELITIS in the right 5th metatarsal head and proximal phalanx of the 4th toe.
2. Large 5.0 cm region of nonenhancing soft tissue necrosis in the lateral right forefoot.
3. No MRI evidence for rim-enhancing enhancing fluid collection to suggest an abscess.
4. Recent amputation of the 5th toe.
5. Severe acute myositis or muscle denervation throughout the right foot.
6. Severe diffuse cellulitis.
US abdomen
IMPRESSION:
1. Right lower extremity: IVANIA 1.08 within normal limits. TBI mildly reduced 0.60. Eccentric wall calcification noted in vessels. Proximal superficial femoral artery velocity elevation of 357 cm/s with velocity ratio of 2.22 consistent with at least
50-74% stenosis. Monophasic waveforms noted distal to the stenosis.
2. Left lower extremity: IVANIA 1.31 within normal limits. TBI minimally reduced 0.67. Eccentric wall calcification noted in vessels. Multiphasic waveforms throughout lower extremity arteries with distal superficial femoral artery velocity elevation
245 cm/s and velocity ratio of 2.13 consistent with likely 50-74% stenosis. Multiphasic waveforms are maintained distal to the stenosis. Continuous Doppler waveforms at the dorsalis pedis and posterior tibial arteries also remain multiphasic.

Assessment/Plan
1. Right Diabetic foot infection
s/p 5th toe amputation and status post diagnostic arteriogram, intravascular lithotripsy of the posterior tibial artery and proximal SFA, balloon angioplasty and nitroglycerin injection of posterior tibial artery on 12/21/23
Right foot cellulitis
-Patient presented for initial right foot fifth dual infection/cellulitis
-MRI of the foot showing soft tissue emphysema/cellulitis and abscess of MTP joint of fifth toe
-Underwent fifth toe amputation by podiatry
-Intraoperative culture growing MSSA/Streptococcus agalactia. Intraoperative bone margin pathology is negative for any osteomyelitis
-Patient was starting to having new worsening leukocytosis and a repeat MRI on 12/13 showing large soft tissue necrosis area
-Patient underwent debridement of right foot on 12/13 evening by podiatry, repeat wound culture growing bacteroids.
-Underwent revision with 4th toe amp (12/14/23)
-Patient finished course of Ancef > Zosyn > finished Keflex through 12/31
-Started patient on Plavix on 12/22/23 in addition to Aspirin, as recommended by vascular surgery
-Patient can weight bear to right heel and use wheel chair to out of bed. Right heel weight bear with walker, and surgical shoe only during weight bearing on the right heel, and remove in bed.
2. MARYLOU with CKD stage IV
AGAP metabolic acidosis -resolved
Proteinuria
-cr improved to 1.8 with Bumex drip, but then trended up again
-RHC on 12/08 showing PCWP of 47mmHg and was started on Bumex drip, renal function did improve but declined again later .
-Patient started on hemodialysis on 12/16 and able to tolerate without issues - continue dialysis as per nephrology
-Patient making some urine although not significant enough to sustain without need of dialysis. Nonetheless patient remains hopeful.
-Continue outpatient dialysis.
3. PAD
-Significant arterial disease with possible suggestive of bilateral proximal superficial femoral artery stenosis of 50 to 74% on US
-Status post diagnostic arteriogram, intravascular lithotripsy of the posterior tibial artery and proximal SFA, balloon angioplasty and nitroglycerin injection of posterior tibial artery on 12/21/23
-Continue DAPT
-Aggressive control of arterial disease risk factors
4. Acute on chronic diastolic congestive heart failure
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
-Patient was tried on Bumex drip for volume optimization although continue to have worsening RF
-now on HD
5. Diabetes mellitus
Hypoglycemia
-presumed Type I as diagnosed age 12.
-Diabetes [employer]PA[employer]ER consulted, recommendations appreciated
-Insulin being adjusted as appropriate
-Continue Lantus 2 units @ HS and NovoLog 3 units AC.
6. Iron def anemia
Acute blood loss anemia from post op
-Ferritin of 74.6 with saturation of 12% and acute phase suggestive of iron deficiency anemia
-Got 7 doses of IV Ferrlecit.
-Patient has significant blood loss from surgical site debridement required multiple dressing and localized thrombin rx
-Required total 3 U PRBC this visit.
7. h/o of CVA
Legally blind in right eye
- Multiple prior CVAs. LINQ recorder recommended; however, patient declined.
- Continue daily ASA/plavix
8. Paroxysmal SVT
-Continue metoprolol succinate qhs 25 mg
9. Diarrhea -- likely antibiotic-associated diarrhea -- RESOLVED
-Stool studies ordered -- C. diff negative
-Probiotic
-GI consulted, recommendations appreciated
-Continue prn Imodium
10. Epistaxis
-minimal and continue prn afrin spray
Guillain Antelope syndrome, with chronic LLE weakness
Hyponatremia
Moderate /AR
Mild to mod MS
DVT Prophylaxis: Heparin Subq
Code Status: Full
More than 30 minutes spent in discharge including
Final examination of the patient
Summarizing hospital stay
Instructions for continuing care to all relevant caregivers
Preparation of discharge records, prescriptions, and referral forms
Total time spent (in minutes): 45
Anticipated Discharge: Today
Subjective/Interval History
-
Date of Service: January 05, 2024
Patient was seen and examined. She denied any new, significant symptoms or complaints.
Objective Data
-
Labs:
Laboratory Results
01/05/24
06:33
WBC 9.5
Hgb 9.0 L
Hct 29.6 L
Plt Count 354 D
Sodium 134 L
Potassium 3.7
Chloride 98
Carbon Dioxide 25
BUN 25 H
Creatinine 2.6 H
Glucose 135 H
Calcium 9.0
Vital Signs:
Vital Signs
Temp Pulse Resp BP Pulse Ox
98.1 F 91 20 126/60 97
01/05/24 07:36 01/05/24 07:36 01/05/24 07:36 01/05/24 07:36 01/05/24 07:36
I&O
01/04/24 01/05/24 01/06/24
06:59 06:59 06:59
Intake Total 240 / 240 1020 / 1020
Output Total 175 / 175 150 / 150
Balance 65 / 65 870 / 870
[2024-01-05 15:22] VITALS: BP 161/79
[2024-01-05 15:32] LABS: Glucose - Point of Care 147 mg/dl (70-99)
--- NOTE | 2024-01-05 15:42 | W.PN.POD ---
Today's Communication
Today's Communication
Patient is stable to discharge, She will f/u in my office after d/c in 2 wks
Assessment / Plan
-
Rt foot S/p 5th toe amputation 12/07/2023
S/P Rt foot # 2 on 12/14/2023
S/P Rt foot debridement #3 on 12/24/2023 debridement of all necrotic tissue and Rt 4th and 5th distal metatarsals resection .
CKD - on HD now
Diabetic small vessel disease - Patient is S/P Angiogram with intravascular lithotripsy of post tibial artery and SFA, noted t have severe small vessel disease in Post tibial in the plantar fo distribution
PAD
Diabetic neuropathy.
Plan : An excisional Debridement of all fibrous tissue at bedside by using #15 blade .
Applied Santyl and dry gauze dressings to Rt foot , applied compressive dressings to Rt foot .
WbC count normalized
Wt bearing to Rt heel with walker and surgical shoe only when ambulation, please remove the surgical shoe while she is in bed
Daily dressings to Rt foot with SAntyl, cover with saline wet gauze, dry gauze and kerlix . Emir compression
Subjective
Chief Complaint
Rt diabetic foot infection with gangrene
Subjective
Patient seen at bedside, in no acute distress, awake, alert, oriented, no SOB or chest pain, she denies any new pedal complaints . Denies any Rt foot pain, no calf pain no fever, chills.
Objective
Temp Pulse Resp BP Pulse Ox
97.9 F 93 20 161/79 100
01/05/24 15:22 01/05/24 15:22 01/05/24 15:22 01/05/24 15:22 01/05/24 15:22
01/05/24 06:33
01/05/24 06:33
Vital Signs and Lab results were reviewed.
Rt foot palpable Dp and dopplerable PT pedal pulses
Rt foot decreased edema .
Rt foot surgical debrided site with fibrous tissue , not much granulation noted , no drainage/no purulence no new necrosis, no foul odor noted. No exposed bone
no crepitus felt, no signs of any abscess felt, no red streaking up the leg
--- NOTE | 2024-01-05 16:18 | W.DS.TRANS ---
DC Summary - Shuttle Hand
-
Discharge Instructions:
Sleep Apnea Risk Low
Diet Diabetic, Carb Controlled,Other diet
Additional Diets 50 ounce daily fluid restriction. Follow
dialysis diet.
Additional Activity Can weight bear to right heel and use wheel
chair to out of bed; right heel weight bear with
walker, and surgical shoe only during weight
bearing on the right heel, and remove shoe in
bed.
Blood Work Recheck CBC, CMP, Magnesium and Phosphorus in 2
to 3 days
Others Tests Your follow-up arterial ultrasound is on
2023 at 3 PM here at [facility]
Other Services PT,OT
Instructions:
Stand-Alone Forms:
Changes to Home Medications: Yes
Discharge Medications:
DC Medications w/original date entered in [id number]
omega 3-kyn-lae-fish oil 900 mg-1,400 mg capsule,delayed release 1 cap PO DAILY Supplement 04/06/23
aspirin 81 mg tablet,delayed release 81 mg PO DAILY Blood Clot Prevention/Tx #30 tabs 05/04/23
atorvastatin 80 mg tablet 80 mg PO QPM #30 tabs 05/04/23
Insulin Glargine Lantus [Lantus] 2 units As Directed mls/hr SC HS 01/05/24
Lactobac/Bifidobac [Visbiome] 1 cap PO DAILY #7 caps 01/05/24
clopidogrel 75 mg tablet 75 mg PO DAILY #30 tabs 01/05/24
insulin aspart U-100 100 unit/mL (3 mL) subcutaneous pen 3 unit (0.03 mL) SC AC #15 mL 01/05/24
metoprolol succinate 25 mg tablet,extended release 24 hr 25 mg PO HS #30 tabs 01/05/24
miconazole nitrate 2 % vaginal cream 1 appful vaginal HS 6 days #45 grams 01/05/24
Home Medication Changes
Clopidogrel, Visbiome, Metoprolol Succinate, and Miconazole Cream are new medications.
Your short-acting Insulin and long-acting Insulin have been decreased to avoid low blood glucose.
Pending Results: No
Total time spent discharging patient (in min): 45
--- NOTE | 2024-01-05 16:30 | PTCARENOTE ---
Attempted to call report to facility where pt is being discharged. Connected to dental receptionist x4 and offered callback number, which was not accepted at this time. Will attempt again.
--- NOTE | 2024-01-05 17:03 | PTCARENOTE ---
Attempted to call report. Acidizer Helper at facility transferred to receiving unit x3, nurse answered, call back number left for when she is ready for report.
--- NOTE | 2024-01-05 17:24 | PTCARENOTE ---
Dang from facility called back for report on patient. Questions answered and callback number provided for any concerns.
== END 2024-01-05 16:30 | DRG 853 ==
LOC: 4 WEST ACU 03:31
PROVIDERS: Hospitalist; Internal Medicine; Internal Medicine Cardiovascular Disease; Internal Medicine Infectious Disease; Nurse Practitioner Acute Care; Nurse Practitioner Gerontology; Radiology Diagnostic Radiology; Radiology Vascular & Interventional Radiology; Specialist; Student in an Organized Health Care Education/Training Program; ADMITTING PHYSICIAN Hospitalist; ATTENDING PHYSICIAN Hospitalist; CONSULT PHYSICIAN Internal Medicine; CONSULT PHYSICIAN Internal Medicine Cardiovascular Disease; CONSULT PHYSICIAN Internal Medicine Gastroenterology; CONSULT PHYSICIAN Physical Medicine & Rehabilitation; CONSULT PHYSICIAN Podiatrist Foot & Ankle Surgery; CONSULT PHYSICIAN Student in an Organized Health Care Education/Training Program; EMERGENCY PHYSICIAN Emergency Medicine; FAMILY PHYSICIAN Internal Medicine; OTHER PHYSICIAN Surgery Vascular Surgery
PROC: 30233N1 Transfusion of Nonautologous Red Blood Cells into Peripheral Vein, Percutaneous Approach (ICD-10-PCS; 2023-12-06)
PROC: 0Y6X0Z0 Detachment at Right 5th Toe, Complete, Open Approach (ICD-10-PCS; 2023-12-07)
PROC: 4A023N6 Measurement of Cardiac Sampling and Pressure, Right Heart, Percutaneous Approach (ICD-10-PCS; 2023-12-09)
PROC: 0Y6V0Z0 Detachment at Right 4th Toe, Complete, Open Approach (ICD-10-PCS; 2023-12-14)
PROC: 0JBQ0ZZ Excision of Right Foot Subcutaneous Tissue and Fascia, Open Approach (ICD-10-PCS; 2023-12-14)
PROC: 5A1D70Z Performance of Urinary Filtration, Intermittent, Less than 6 Hours Per Day (ICD-10-PCS; 2023-12-17)
PROC: 02H633Z Insertion of Infusion Device into Right Atrium, Percutaneous Approach (ICD-10-PCS; 2023-12-17)
PROC: B5181ZA Fluoroscopy of Superior Vena Cava using Low Osmolar Contrast, Guidance (ICD-10-PCS; 2023-12-17)
PROC: 04FR3ZZ Fragmentation of Right Posterior Tibial Artery, Percutaneous Approach (ICD-10-PCS; 2023-12-21)
PROC: B4101ZZ Fluoroscopy of Abdominal Aorta using Low Osmolar Contrast (ICD-10-PCS; 2023-12-21)
PROC: 04FK3ZZ Fragmentation of Right Femoral Artery, Percutaneous Approach (ICD-10-PCS; 2023-12-21)
PROC: 04FM3ZZ Fragmentation of Right Popliteal Artery, Percutaneous Approach (ICD-10-PCS; 2023-12-21)
PROC: B41F1ZZ Fluoroscopy of Right Lower Extremity Arteries using Low Osmolar Contrast (ICD-10-PCS; 2023-12-21)
PROC: B41C1ZZ Fluoroscopy of Pelvic Arteries using Low Osmolar Contrast (ICD-10-PCS; 2023-12-21)
PROC: B5131ZA Fluoroscopy of Right Jugular Veins using Low Osmolar Contrast, Guidance (ICD-10-PCS; 2023-12-22)
PROC: 05HM33Z Insertion of Infusion Device into Right Internal Jugular Vein, Percutaneous Approach (ICD-10-PCS; 2023-12-22)
PROC: 0JH63XZ Insertion of Tunneled Vascular Access Device into Chest Subcutaneous Tissue and Fascia, Percutaneous Approach (ICD-10-PCS; 2023-12-22)
PROC: 02PA33Z Removal of Infusion Device from Heart, Percutaneous Approach (ICD-10-PCS; 2023-12-22)
PROC: 0QBN0ZZ Excision of Right Metatarsal, Open Approach (ICD-10-PCS; 2023-12-24)
DX: A41.9 Sepsis, unspecified organism (principal); I50.33 Acute on chronic diastolic (congestive) heart failure; N18.6 End stage renal disease; E10.52 Type 1 diabetes mellitus with diabetic peripheral angiopathy with gangrene; D62 Acute posthemorrhagic anemia; L03.115 Cellulitis of right lower limb; G61.0 Guillain-Barre syndrome; E87.20 Acidosis, unspecified; E87.1 Hypo-osmolality and hyponatremia; N17.9 Acute kidney failure, unspecified; T81.49XA Infection following a procedure, other surgical site, initial encounter; L02.611 Cutaneous abscess of right foot; T79.7XXA Traumatic subcutaneous emphysema, initial encounter; M86.9 Osteomyelitis, unspecified; L97.518 Non-pressure chronic ulcer of other part of right foot with other specified severity; I70.261 Atherosclerosis of native arteries of extremities with gangrene, right leg; I47.10 Supraventricular tachycardia, unspecified; I13.2 Hypertensive heart and chronic kidney disease with heart failure and with stage 5 chronic kidney disease, or end stage renal disease; E10.628 Type 1 diabetes mellitus with other skin complications; E10.319 Type 1 diabetes mellitus with unspecified diabetic retinopathy without macular edema; E78.00 Pure hypercholesterolemia, unspecified; I25.10 Atherosclerotic heart disease of native coronary artery without angina pectoris; M60.9 Myositis, unspecified; D25.9 Leiomyoma of uterus, unspecified; E10.69 Type 1 diabetes mellitus with other specified complication; I27.22 Pulmonary hypertension due to left heart disease; I27.29 Other secondary pulmonary hypertension; E10.22 Type 1 diabetes mellitus with diabetic chronic kidney disease; L03.031 Cellulitis of right toe; E10.65 Type 1 diabetes mellitus with hyperglycemia; B95.1 Streptococcus, group B, as the cause of diseases classified elsewhere; B95.61 Methicillin susceptible Staphylococcus aureus infection as the cause of diseases classified elsewhere; H54.61 Unqualified visual loss, right eye, normal vision left eye; D50.9 Iron deficiency anemia, unspecified; I08.0 Rheumatic disorders of both mitral and aortic valves; R19.7 Diarrhea, unspecified; D72.829 Elevated white blood cell count, unspecified; R04.0 Epistaxis; Q24.9 Congenital malformation of heart, unspecified; Z95.1 Presence of aortocoronary bypass graft; Z87.891 Personal history of nicotine dependence; Z79.4 Long term (current) use of insulin; Z79.02 Long term (current) use of antithrombotics/antiplatelets; Z79.82 Long term (current) use of aspirin; Z86.73 Personal history of transient ischemic attack (TIA), and cerebral infarction without residual deficits; Z91.040 Latex allergy status; Z91.048 Other nonmedicinal substance allergy status; Z91.199 Patient's noncompliance with other medical treatment and regimen due to unspecified reason; I25.2 Old myocardial infarction; Z82.49 Family history of ischemic heart disease and other diseases of the circulatory system; Z83.3 Family history of diabetes mellitus; Z84.1 Family history of disorders of kidney and ureter
CPT/HCPCS: 88304; 88305; 88311; 36556; 36558; 71046; 73660; 73718; 73720; 75625; 75716; 76770; 76937; 77001; 80048; 80053; 80069; 80202; 81003; 81015; 82570; 82728; 82962; 83036; 83540; 83550; 83605; 83735; 83880; 83930; 83935; 84155; 84156; 84165; 84300; 84443; 84681; 85014; 85018; 85025; 85027; 85610; 85652; 85730; 86140; 86160; 86704; 86706; 86803; 86850; 86900; 86901; 86920; 87040; 87045; 87046; 87070; 87075; 87076; 87077; 87147; 87176; 87185; 87186; 87205; 87324; 87340; 87427; 87449; 89055; 93306; 93654; 93922; 93925; 93971; 96361; 96365; 96367; 96372; 97116; 97162; 97167; 97530; 97535; 99152; 99153; 99285; A9575; C1725; C1750; C1752; C1769; C1894; C9764; C9772; G0257; J2916; P9016; P9047; Q5106; Q9967

== ENCOUNTER → 2024-02-03 12:46 | Outpatient (REF) | payer OTHER, SELFPAY | LOC: RAD 12:46 | PROVIDERS: ATTENDING PHYSICIAN Surgery Vascular Surgery; FAMILY PHYSICIAN Internal Medicine | DX: I73.9 Peripheral vascular disease, unspecified (principal) | CPT/HCPCS: 93922; 93925 ==

== ENCOUNTER 2024-02-15 19:24 | Inpatient (IN) | payer OTHER, SELFPAY ==
[2024-02-15 15:29] VITALS: BP 149/72
--- NOTE | 2024-02-15 15:32 | ED.GENMED ---
ED Provider Triage
<Russell Mcghee PA-C - Last Filed: 02/15/24 15:34>
-
Patient seen by provider in Triage?: Seen in Triage
48 year old female IDDM on HD with erythema swelling and pain to right leg. Had recent toe amputations on right foot and debridement on the right foot 5 days ago. Sent in by podiatry.
History of Present Illness
<Russell Mcghee PA-C - Last Filed: 02/15/24 15:34>
General
Chief Complaint: Skin Problem
Time Seen by Provider: 02/15/24 16:35
<Shantell Hubbard PA-C - Last Filed: 02/15/24 20:15>
General
Source: patient
Exam Limitations: none
Nursing documentation reviewed up to this point in time: agreed with
History of Present Illness
History of Present Illness:
This is a 48 y/o female with a PMH of IDDM, diabetic neuropathy, right eye blindness, end stage renal disease on dialysis presenting to the emergency department today with concerns of a right lower extremity foot wound with right lower extremity
redness and swelling. 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 She had 2 toes amputated in December due to diabetic foot wound. She subsequently had a in office debridement of her wound last week. She has not been on antibiotics recently.
She notes a foul smell to her wound, tenderness, drainage. Denies fevers or chills, nausea or vomiting, abdominal pain, chest pain. At dialysis today, the medical staff expressed concerns regarding her wounds who called podiatry and recommended she
come into the emergency department for evaluation today. Patient
Past History
<Russell Mcghee PA-C - Last Filed: 02/15/24 15:34>
Past History
ED Past Medical History: CHF, HTN, Hypercholesterolemia, NIDDM and Other (Guillian-barre, blind right eye)
ED Past Surgical History: Cardiac (CABG in 1981)
Patient has exhibited threatening behavior?: No
Social History
Tobacco: Other
Alcohol: Occasional
Drug: Other
Personal: Other
Living: with family
Employment: Other
Family History
Family History: Other
Review of Systems
<Shantell Hubbard PA-C - Last Filed: 02/15/24 20:15>
Review of Systems
All Other Systems: ROS reviewed and negative except as documented in HPI and ROS
Phy Exam
<Shantell Hubbard PA-C - Last Filed: 02/15/24 20:15>
Physical Exam
Physical Exam:
General: Patient is well appearing and in no acute distress; non-toxic
Skin: Warm and dry, mild erythema and swelling noted to right lower extremity, large wound noted to right lateral foot with foul smell and active drainage, tender to palpation
Head: Normocephalic, atraumatic
Eyes: Sclera non-icteric. EOMs intact. PERRLA.
Cardiac: Regular rate and rhythm, no murmurs
Peripheral Vascular: 2+ dorsalis pedis pulses bilaterally.
Pulm: Normal respiratory effort
Musculoskeletal: Full range of motion of bilateral upper and lower extremities. Right fourth and fifth toe absent.
Neuro: CN II-XII intact, no focal neurologic deficits.
Psychiatric: Appropriate mood and affect.
Course
<Russell Mcghee PA-C - Last Filed: 02/15/24 15:34>
Orders/Labs/Results
Orders:
Orders
02/15/24 15:32
IV Insert/Care/Rem.- Treatment PRN
02/15/24 15:55
Complete Blood Count/With Diff Urgent
02/15/24 16:50
Comprehensive Metabolic Panel Urgent
02/15/24 17:21
CR Foot - Right 2 Views Urgent
Comment:
Reason For Exam: right foot wound/pain
02/15/24 17:22
IV Insert/Care/Rem.- Treatment PRN
Piperacillin/Tazo 3.375 Gram [Zosyn] 3.375 gram in 50 ml IV NOW
02/15/24 17:49
Vancomycin [Vancocin] 2,000 mg 0.9% Sodium Chloride 500 ml [Nss] 500 ml IV NOW
02/15/24 18:00
VANCOMYCIN Pharmacy to Dose [VANCOCIN Pharmacy to Dose] 1 each Pharmacy To Prepare [Call Pharmacy To Prepare] 0 ml IV PER PROTOCOL
02/15/24 18:55
Admit/Transfer Patient As Directed
Co-Sign Provider:
Level of Care: Inpatient admission
Assign to:: Medical/Surgical
Physician / Group: sudarshan
Diagnosis: diabetic foot infection
Reason for Hospitalization: diabetic foot infection
Expected length of stay greater than two midnights?: Yes
ELOS- Estimated Length of Stay in days: 2
I certify the patient meets the requirements for IP care: Yes
Code Status As Directed
Resuscitation Status: Full Code
PRN Pain Medication Management As Directed
May give lesser potent ordered pain med per pt: Yes
preference::
Protocol:: Medication orders for pain may be administered in a
manner that supports deferring to patient preference
when the pt is:
- Requesting an ordered lesser potent pain medication.
Least to most potent pain medications are defined
as: acetaminophen < NSAID < tramadol < opioids
(morphine, oxycodone, hydromorphone).
- Requesting a lesser dose of the same medication IF
ORDERED.
- Requesting a less intrusive route of administration
if both routes are prescribed by the provider (PO <
IV).
02/15/24 19:45
Dextrose 50%-Water [Dextrose 50% Syringe] 12.5 grams IV [id number] PRN
Glucagon [GlucaGen] 1 mg IM PRN PRN
omega 7-ngn-uyp-fish oil 1 cap PO DAILYPRN PRN
02/15/24 19:45
Activity As Directed
Activity Level: As Tolerated
Bedside Glucose Monitoring As Directed
Frequency: AC&HS
Additional Instructions:: Change to q6h if pt on TPN, tube feeding or not eating
Pneumatic Compression Sleeves As Directed
Type: Knee high
Vital Signs As Directed
Frequency: Per unit guidelines
DX Deep Vein Thrombosis Video Routine
02/15/24 20:00
VANCOMYCIN Pharmacy to Dose [VANCOCIN Pharmacy to Dose] 1 each Pharmacy To Prepare [Call Pharmacy To Prepare] 0 ml IV PER PROTOCOL
02/15/24 22:00
Metoprolol Xl [Toprol Xl] 25 mg PO HS
insulin glargine [Lantus Solostar U-100 Insulin] 2 unit SC HS
02/16/24 00:00
Piperacillin/Tazo 3.375 Gram [Zosyn] 3.375 gram in 50 ml IV Q6H
02/16/24 06:00
Complete Blood Count/With Diff IN AM
Comprehensive Metabolic Panel IN AM
Glycohemoglobin (HgbA1c) IN AM
02/16/24 07:30
Insulin Aspart Corrective Low [Novolog Flexpen-Low Resistance] See Protocol SC AC
02/16/24 08:00
Aspirin Low Dose EC [Aspir Low (Enteric Coated)] 81 mg PO DAILY
Clopidogrel Bisulfate [Plavix] 75 mg PO DAILY
Collagenase [Santyl Ointment] 1 applic TOPICAL DAILY
Lactobac/Bifidobac [Visbiome] 1 cap PO DAILY
02/16/24 18:00
Atorvastatin [Lipitor] 80 mg PO QPM
02/21/24 08:00
Ergocalciferol [Drisdol (Vitamin D2)] 50,000 units PO HANSON@0800
Abnormal Lab Results
02/15/24 02/15/24
15:55 16:50
RBC 3.70 L 10^6/uL
(4.20-5.40)
Hgb 9.2 L g/dL
(12.0-16.0)
Hct 29.2 L %
(37.0-47.0)
MCV 78.9 L fL
(81.0-99.0)
MCH 24.9 L pg
(27.0-31.0)
MCHC 31.5 L g/dL
(33.0-37.0)
RDW 19.9 H %
(11.5-14.5)
Absolute Monos (auto) 0.7 H 10^3/uL
(0.1-0.6)
Lymphocytes % 19.7 L %
(20.5-51.1)
Chloride 97 L mmol/L
(98-107)
Carbon Dioxide 31 H mmol/L
(22-30)
BUN 25 H mg/dl
(7-17)
Creatinine 1.6 H mg/dL
(0.6-1.0)
Glucose 181 H mg/dl
(70-99)
AST 62 H U/L
(14-36)
ALT 65 H U/L
(0-35)
Alkaline Phosphatase 1039 H U/L
(38-126)
Albumin 2.6 L g/dl
(3.5-5.0)
02/15/24 15:55
02/15/24 16:50
Vital Signs
Initial and Last Documented VS:
Initial Vital Signs
Temp Pulse Resp BP Pulse Ox
98.2 F 95 18 149/72 97
02/15/24 15:29 02/15/24 15:29 02/15/24 15:29 02/15/24 15:29 02/15/24 15:29
Last Documented Vital Signs
Temp Pulse Resp BP Pulse Ox
98.2 F 95 18 149/72 97
02/15/24 15:29 02/15/24 15:29 02/15/24 15:29 02/15/24 15:29 02/15/24 15:29
<Shantell Hubbard PA-C - Last Filed: 02/15/24 20:15>
Orders/Labs/Results
Orders:
Orders
02/15/24 15:32
IV Insert/Care/Rem.- Treatment PRN
02/15/24 15:55
Complete Blood Count/With Diff Urgent
02/15/24 16:50
Comprehensive Metabolic Panel Urgent
02/15/24 17:21
CR Foot - Right 2 Views Urgent
Comment:
Reason For Exam: right foot wound/pain
02/15/24 17:22
IV Insert/Care/Rem.- Treatment PRN
Piperacillin/Tazo 3.375 Gram [Zosyn] 3.375 gram in 50 ml IV NOW
02/15/24 17:49
Vancomycin [Vancocin] 2,000 mg 0.9% Sodium Chloride 500 ml [Nss] 500 ml IV NOW
02/15/24 18:00
VANCOMYCIN Pharmacy to Dose [VANCOCIN Pharmacy to Dose] 1 each Pharmacy To Prepare [Call Pharmacy To Prepare] 0 ml IV PER PROTOCOL
02/15/24 18:55
Admit/Transfer Patient As Directed
Co-Sign Provider:
Level of Care: Inpatient admission
Assign to:: Medical/Surgical
Physician / Group: sudarshan
Diagnosis: diabetic foot infection
Reason for Hospitalization: diabetic foot infection
Expected length of stay greater than two midnights?: Yes
ELOS- Estimated Length of Stay in days: 2
I certify the patient meets the requirements for IP care: Yes
Code Status As Directed
Resuscitation Status: Full Code
PRN Pain Medication Management As Directed
May give lesser potent ordered pain med per pt: Yes
preference::
Protocol:: Medication orders for pain may be administered in a
manner that supports deferring to patient preference
when the pt is:
- Requesting an ordered lesser potent pain medication.
Least to most potent pain medications are defined
as: acetaminophen < NSAID < tramadol < opioids
(morphine, oxycodone, hydromorphone).
- Requesting a lesser dose of the same medication IF
ORDERED.
- Requesting a less intrusive route of administration
if both routes are prescribed by the provider (PO <
IV).
02/15/24 19:45
Dextrose 50%-Water [Dextrose 50% Syringe] 12.5 grams IV [id number] PRN
Glucagon [GlucaGen] 1 mg IM PRN PRN
omega 0-qji-lyh-fish oil 1 cap PO DAILYPRN PRN
02/15/24 19:45
Activity As Directed
Activity Level: As Tolerated
Bedside Glucose Monitoring As Directed
Frequency: AC&HS
Additional Instructions:: Change to q6h if pt on TPN, tube feeding or not eating
Pneumatic Compression Sleeves As Directed
Type: Knee high
Vital Signs As Directed
Frequency: Per unit guidelines
DX Deep Vein Thrombosis Video Routine
02/15/24 20:00
VANCOMYCIN Pharmacy to Dose [VANCOCIN Pharmacy to Dose] 1 each Pharmacy To Prepare [Call Pharmacy To Prepare] 0 ml IV PER PROTOCOL
02/15/24 22:00
Metoprolol Xl [Toprol Xl] 25 mg PO HS
insulin glargine [Lantus Solostar U-100 Insulin] 2 unit SC HS
02/16/24 00:00
Piperacillin/Tazo 3.375 Gram [Zosyn] 3.375 gram in 50 ml IV Q6H
02/16/24 06:00
Complete Blood Count/With Diff IN AM
Comprehensive Metabolic Panel IN AM
Glycohemoglobin (HgbA1c) IN AM
02/16/24 07:30
Insulin Aspart Corrective Low [Novolog Flexpen-Low Resistance] See Protocol SC AC
02/16/24 08:00
Aspirin Low Dose EC [Aspir Low (Enteric Coated)] 81 mg PO DAILY
Clopidogrel Bisulfate [Plavix] 75 mg PO DAILY
Collagenase [Santyl Ointment] 1 applic TOPICAL DAILY
Lactobac/Bifidobac [Visbiome] 1 cap PO DAILY
02/16/24 18:00
Atorvastatin [Lipitor] 80 mg PO QPM
02/21/24 08:00
Ergocalciferol [Drisdol (Vitamin D2)] 50,000 units PO HANSON@0800
Abnormal Lab Results
02/15/24 02/15/24
15:55 16:50
RBC 3.70 L 10^6/uL
(4.20-5.40)
Hgb 9.2 L g/dL
(12.0-16.0)
Hct 29.2 L %
(37.0-47.0)
MCV 78.9 L fL
(81.0-99.0)
MCH 24.9 L pg
(27.0-31.0)
MCHC 31.5 L g/dL
(33.0-37.0)
RDW 19.9 H %
(11.5-14.5)
Absolute Monos (auto) 0.7 H 10^3/uL
(0.1-0.6)
Lymphocytes % 19.7 L %
(20.5-51.1)
Chloride 97 L mmol/L
(98-107)
Carbon Dioxide 31 H mmol/L
(22-30)
BUN 25 H mg/dl
(7-17)
Creatinine 1.6 H mg/dL
(0.6-1.0)
Glucose 181 H mg/dl
(70-99)
AST 62 H U/L
(14-36)
ALT 65 H U/L
(0-35)
Alkaline Phosphatase 1039 H U/L
(38-126)
Albumin 2.6 L g/dl
(3.5-5.0)
02/15/24 15:55
02/15/24 16:50
Vital Signs
Initial and Last Documented VS:
Initial Vital Signs
Temp Pulse Resp BP Pulse Ox
98.2 F 95 18 149/72 97
02/15/24 15:29 02/15/24 15:29 02/15/24 15:29 02/15/24 15:29 02/15/24 15:29
Last Documented Vital Signs
Temp Pulse Resp BP Pulse Ox
98.2 F 95 18 149/72 97
02/15/24 15:29 02/15/24 15:29 02/15/24 15:29 02/15/24 15:29 02/15/24 15:29
<Ariel Kelley, DO - Last Filed: 02/15/24 17:20>
Orders/Labs/Results
Orders:
Orders
02/15/24 15:32
IV Insert/Care/Rem.- Treatment PRN
02/15/24 15:55
Complete Blood Count/With Diff Urgent
02/15/24 16:50
Comprehensive Metabolic Panel Urgent
02/15/24 17:21
CR Foot - Right 2 Views Urgent
Comment:
Reason For Exam: right foot wound/pain
02/15/24 17:22
IV Insert/Care/Rem.- Treatment PRN
Piperacillin/Tazo 3.375 Gram [Zosyn] 3.375 gram in 50 ml IV NOW
02/15/24 17:49
Vancomycin [Vancocin] 2,000 mg 0.9% Sodium Chloride 500 ml [Nss] 500 ml IV NOW
02/15/24 18:00
VANCOMYCIN Pharmacy to Dose [VANCOCIN Pharmacy to Dose] 1 each Pharmacy To Prepare [Call Pharmacy To Prepare] 0 ml IV PER PROTOCOL
02/15/24 18:55
Admit/Transfer Patient As Directed
Co-Sign Provider:
Level of Care: Inpatient admission
Assign to:: Medical/Surgical
Physician / Group: sudarshan
Diagnosis: diabetic foot infection
Reason for Hospitalization: diabetic foot infection
Expected length of stay greater than two midnights?: Yes
ELOS- Estimated Length of Stay in days: 2
I certify the patient meets the requirements for IP care: Yes
Code Status As Directed
Resuscitation Status: Full Code
PRN Pain Medication Management As Directed
May give lesser potent ordered pain med per pt: Yes
preference::
Protocol:: Medication orders for pain may be administered in a
manner that supports deferring to patient preference
when the pt is:
- Requesting an ordered lesser potent pain medication.
Least to most potent pain medications are defined
as: acetaminophen < NSAID < tramadol < opioids
(morphine, oxycodone, hydromorphone).
- Requesting a lesser dose of the same medication IF
ORDERED.
- Requesting a less intrusive route of administration
if both routes are prescribed by the provider (PO <
IV).
02/15/24 19:45
Dextrose 50%-Water [Dextrose 50% Syringe] 12.5 grams IV [id number] PRN
Glucagon [GlucaGen] 1 mg IM PRN PRN
omega 9-clf-lad-fish oil 1 cap PO DAILYPRN PRN
02/15/24 19:45
Activity As Directed
Activity Level: As Tolerated
Bedside Glucose Monitoring As Directed
Frequency: AC&HS
Additional Instructions:: Change to q6h if pt on TPN, tube feeding or not eating
Pneumatic Compression Sleeves As Directed
Type: Knee high
Vital Signs As Directed
Frequency: Per unit guidelines
DX Deep Vein Thrombosis Video Routine
02/15/24 20:00
VANCOMYCIN Pharmacy to Dose [VANCOCIN Pharmacy to Dose] 1 each Pharmacy To Prepare [Call Pharmacy To Prepare] 0 ml IV PER PROTOCOL
02/15/24 22:00
Metoprolol Xl [Toprol Xl] 25 mg PO HS
insulin glargine [Lantus Solostar U-100 Insulin] 2 unit SC HS
02/16/24 00:00
Piperacillin/Tazo 3.375 Gram [Zosyn] 3.375 gram in 50 ml IV Q6H
02/16/24 06:00
Complete Blood Count/With Diff IN AM
Comprehensive Metabolic Panel IN AM
Glycohemoglobin (HgbA1c) IN AM
02/16/24 07:30
Insulin Aspart Corrective Low [Novolog Flexpen-Low Resistance] See Protocol SC AC
02/16/24 08:00
Aspirin Low Dose EC [Aspir Low (Enteric Coated)] 81 mg PO DAILY
Clopidogrel Bisulfate [Plavix] 75 mg PO DAILY
Collagenase [Santyl Ointment] 1 applic TOPICAL DAILY
Lactobac/Bifidobac [Visbiome] 1 cap PO DAILY
02/16/24 18:00
Atorvastatin [Lipitor] 80 mg PO QPM
02/21/24 08:00
Ergocalciferol [Drisdol (Vitamin D2)] 50,000 units PO HANSON@0800
Abnormal Lab Results
02/15/24 02/15/24
15:55 16:50
RBC 3.70 L 10^6/uL
(4.20-5.40)
Hgb 9.2 L g/dL
(12.0-16.0)
Hct 29.2 L %
(37.0-47.0)
MCV 78.9 L fL
(81.0-99.0)
MCH 24.9 L pg
(27.0-31.0)
MCHC 31.5 L g/dL
(33.0-37.0)
RDW 19.9 H %
(11.5-14.5)
Absolute Monos (auto) 0.7 H 10^3/uL
(0.1-0.6)
Lymphocytes % 19.7 L %
(20.5-51.1)
Chloride 97 L mmol/L
(98-107)
Carbon Dioxide 31 H mmol/L
(22-30)
BUN 25 H mg/dl
(7-17)
Creatinine 1.6 H mg/dL
(0.6-1.0)
Glucose 181 H mg/dl
(70-99)
AST 62 H U/L
(14-36)
ALT 65 H U/L
(0-35)
Alkaline Phosphatase 1039 H U/L
(38-126)
Albumin 2.6 L g/dl
(3.5-5.0)
02/15/24 15:55
02/15/24 16:50
Vital Signs
Initial and Last Documented VS:
Initial Vital Signs
Temp Pulse Resp BP Pulse Ox
98.2 F 95 18 149/72 97
02/15/24 15:29 02/15/24 15:29 02/15/24 15:29 02/15/24 15:29 02/15/24 15:29
Last Documented Vital Signs
Temp Pulse Resp BP Pulse Ox
98.2 F 95 18 149/72 97
02/15/24 15:29 02/15/24 15:29 02/15/24 15:29 02/15/24 15:29 02/15/24 15:29
<Shantell Hubbard PA-C - Last Filed: 02/15/24 20:15>
MDM/Problems Addressed
Differential Diagnosis Includes:
ddx include post surgical infection, diabetic ulcer, osteomyelitis
MDM/Problems Addressed:
Foot wound: This is a 48 y/o female with a PMH of IDDM, diabetic neuropathy, right eye blindness, end stage renal disease on dialysis presenting to the emergency department today with concerns of a right lower extremity foot wound with right lower
extremity redness and swelling. 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 She had 2 toes amputated in December due to diabetic foot wound. She subsequently had a in office debridement of her wound last week. She has not been on antibiotics
recently. She notes a foul smell to her wound, tenderness, drainage. She feels that ever since the debridement, it has been getting worse. Denies fevers or chills. Physical exam consistent with infected diabetic foot wound. Will order imaging,
refer for IV antibiotics, podiatry consulted pictures sent, they will evaluate patient tomorrow.
Chronic conditions affecting care:
IDDM, CKD
Acute Exacerbation and/or Progression of Chronic Illness:
IDDM, CKD
<Shantlel Hubbard PA-C - Last Filed: 02/15/24 20:15>
*Pulse Oximetry
Patient hypoxic: no
*Critical Care Note
Total Time (30-74mins, 75-104mins- exclusive of procedures): Not Applicable
Data Reviewed
Review of Other/Old Records Reveals: Records (Patient has been seen multiple times for diabetic foot infections in the past) and Discharge Summary (Reviewed discharge summary from last month: On December 07, 2023, patient had a right 5th toe amputation
and left open for secondary intention healing. the MRI showed presence of suspected osteomyelitis of the fifth metatarsal head and proximal phalanx )
Source: patient and records
<VALENTINO Morales Last Filed: 02/15/24 20:15>
Patient Management
Social determinants of health affecting care: Poor social support
ED Attending Note
<Russell Mcghee PA-C - Last Filed: 02/15/24 15:34>
-
Portions of this chart may have been created with voice recognition software.� Occasional wrong word or��sound alike� substitutions may have occurred due to the inherent limitations of voice recognition software.
<Ariel Kelley DO - Last Filed: 02/15/24 17:20>
ED Attending Note
Patient seen and examined by attending physician: Yes
I performed the substantive portion of visit, reviewed & personally made and approve the management plan that is documented in note by myself or RONALD.: Yes
ED Attending Note:
I have seen and evaluated the patient with a [id number] encounter. I have spoken to the advance practicer provider and involved in the medical history, the physical exam, medical decision making.
Evaluation and management service: agree unless noted differently below.
Results interpretation: agree unless noted differently below.
Focused HPI: 48-year-old female presenting with right foot wound. Patient has required amputation in the past. She is setting for concern for infection
Physical exam: Open wound to right lateral foot with surrounding infection.
Medical Decision Making: Will start antibiotics with concern for wound infection and possible osteomyelitis. Will admit for podiatry evaluation
Discharge Plan
Departure
Patient Disposition: Admit
Date of Disposition: 02/15/24
Time of Disposition: 18:26
Admit to: Med/Surg
Presentation/result/management discussed w/ accepting MD/DO: Hospitalist
Patient with high blood pressure during this ER visit?: Yes
Condition: Fair
Discharge Problem:
Diabetic foot infection
Interventions
Interventions:
*Risk Screen - Suicide Last Done: 02/15/24 15:29
*General Assessment Last Done: 02/15/24 15:29
*Neglect/Abuse Screening Last Done: 02/15/24 15:29
ED- Fall Risk Assessment Last Done: 02/15/24 17:37
*ED COVID-19 Vaccine History Last Done: 02/15/24 19:32
*Nursing Disposition Last Done: 02/15/24 19:45
ED-Skin Assessment Last Done: 02/15/24 17:37
Discharge Date and Time
Discharge Date/Time: 02/15/24 19:45
[2024-02-15 16:04] LABS: % Basophils 0.9 % (0-2); % Immature Granulocytes 0.5 % (0-0.5); % Lymphocytes 19.7 % (20.5-51.1); % Monocytes 7.7 % (1.7-9.3); % Neutrophils 69.2 % (42.2-75.2); Absolute Basophils 0.1 10^3/uL (0-0.2); Absolute Eosinophils 0.2 10^3/uL (0-0.7); Absolute Lymphocytes 1.7 10^3/uL (1.2-3.4); Absolute Monocytes 0.7 10^3/uL (0.1-0.6); Hematocrit 29.2 % (37.0-47.0); Hemoglobin 9.2 g/dL (12.0-16.0); Mean Corp Hgb Conc. 31.5 g/dL (33.0-37.0); Mean Corpuscular Hgb 24.9 pg (27.0-31.0); Mean Corpuscular Volume 78.9 fL (81.0-99.0); Mean Platelet Volume 9.5 fL (7.4-10.4); Nucleated Red Blood Cells % 0 %; Platelet Count 321 10^3/uL (130-400); Red Cell Dist. Width 19.9 % (11.5-14.5); White Blood Cell Count 8.7 10^3/uL (4.8-10.8)
[2024-02-15 17:14] LABS: ALT (SGPT) 65 U/L (0-35); AST (SGOT) 62 U/L (14-36); Albumin 2.6 g/dl (3.5-5.0); Alkaline Phosphatase 1039 U/L (38-126); Blood Urea Nitrogen 25 mg/dl (7-17); Calcium 9.9 mg/dl (8.4-10.2); Carbon Dioxide 31 mmol/L (22-30); Chloride 97 mmol/L (98-107); Glucose 181 mg/dl (70-99); Potassium 4.6 mmol/L (3.5-5.1); Sodium 136 mmol/L (135-145); Total Bilirubin 1.2 mg/dl (0.2-1.3); eGFR 39.54
[2024-02-15] MEDS: ZOSYN 50 IV (17:30)
[2024-02-15 17:42] VITALS: BMI 31.0
[2024-02-15] MEDS: VANCOCIN 540 MG IV (18:33)
--- NOTE | 2024-02-15 18:59 | HPS.HSE ---
Family Physician
-
Family Physician: Fitz Daniel
Chief Complaint
-
foot infection
History of Present Illness
48-year-old female past medical history of right diabetic foot infection status post fifth toe amputation, peripheral arterial disease, ESRD on hemodialysis Thursday and Thursday, diastolic CHF, presumed type I diabetes, iron deficiency anemia, CVA,
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
There is sloughing of material from the foot. She denies any pain. She denies any fevers or chills.
She reports feeling fatigued while on dialysis. She also feels fatigued while taking metoprolol so it had recently been decreased to 50 mg to 25 mg. She stopped taking it a few days ago.
Patient was recently admitted in December for right diabetic foot infection. Patient underwent fifth toe amputation which was left open for secondary intention healing. Intraoperative culture showed Staph aureus and GBS. MRI subsequently showed
osteomyelitis of the fifth metatarsal head and proximal phalanx of the fourth toe and tissue necrosis and patient underwent debridement and fourth toe amputation.
Patient later underwent diagnostic arteriogram/intravascular trip to the posterior tibial artery and proximal SFA, balloon angioplasty nitroglycerin injection of the posterior tibial artery. Plavix was started.
She denies smoking or alcohol use.
Medical History
Past Medical History
Past Medical History: Reports Other (right diabetic foot infection status post fifth toe amputation, peripheral arterial disease, ESRD on hemodialysis Thursday and Thursday, diastolic CHF, presumed type I diabetes, iron deficiency anemia, CVA,
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
Past Surgical History: Reports Other
Social History
Tobacco: Non-smoker
Alcohol: None
Drug: None
Family History
Family History: Not pertinent
Allergies / Home Medications
Allergies reflects when Allergies were last updated in [employer].
Home Medications with original date entered in [employer]
Allergy/Medication List:
Allergies
Allergy/AdvReac Type Severity Reaction Status Date / Time
latex Allergy Intermediate Hives Verified 02/15/24 15:28
Home Medications
omega 2-lps-aiz-fish oil 900 mg-1,400 mg capsule,delayed release 1 cap PO DAILYPRN PRN Supplement 04/06/23
aspirin 81 mg tablet,delayed release 81 mg PO DAILY Blood Clot Prevention/Tx #30 tabs 05/04/23
atorvastatin 80 mg tablet 80 mg PO QPM #30 tabs 05/04/23
clopidogrel 75 mg tablet 75 mg PO DAILY #30 tabs 01/05/24
insulin aspart U-100 100 unit/mL (3 mL) subcutaneous pen 3 unit (0.03 mL) SC AC #15 mL 01/05/24
metoprolol succinate 25 mg tablet,extended release 24 hr 25 mg PO HS #30 tabs 01/05/24
Lactobac no.2-Bifidobac no.1-S. thermo 112.5 billion cell capsule (Visbiome) 1 cap PO DAILY 02/15/24
collagenase clostridium histo. 250 unit/gram topical ointment (Santyl) 1 applic topical DAILY 02/15/24
ergocalciferol (vitamin D2) 1,250 mcg (50,000 unit) capsule 1,250 mcg PO HANSON 02/15/24
insulin glargine 100 unit/mL (3 mL) subcutaneous pen (Lantus Solostar U-100 Insulin) 2 unit SC HS 02/15/24
Review of Systems
-
History Source: Patient
A 12 point ROS was completed and negative except as noted: Yes
Constitutional: Reports No Symptoms
EENT: Reports No Symptoms
Respiratory: Reports No Symptoms
Cardiac: Reports No Symptoms
Abdomen/GI: Reports No Symptoms
: Reports No Symptoms
Musculoskeletal: Reports No Symptoms
Skin: Reports See HPI
Neurological: Reports No Symptoms
Endocrine: Reports No Symptoms
Hematologic/Lymphatic: Reports No Symptoms
Psych: Reports No Symptoms
Physical Exam
Vital Signs
Vital Signs
Temp Pulse Resp BP Pulse Ox
98.2 F 95 18 149/72 97
02/15/24 15:29 02/15/24 15:29 02/15/24 15:29 02/15/24 15:29 02/15/24 15:29
Physical Exam
General: Well Developed, Well Nourished and No Apparent Distress
HEENT: NormoCephalic, Moist mucous membranes and Atraumatic
Respiratory: Clear
Cardiac: S1/S2 and Regular Rhythm; No Murmur or Rub
GI: Soft, Non Tender, Non Distended and Normal Bowel Sounds; No Organomegaly
Rectal: Deferred by Provider
Musculoskeletal: No Clubbing, No Cyanosis and No Edema
Skin: Other (right foot open wound ); No Rash
Neuro: Nonfocal/grossly intact
Laboratory Results
-
02/15/24 15:55
02/15/24 16:50
Laboratory Results
Total Bilirubin 1.2 mg/dl (0.2-1.3) 02/15/24 16:50
AST 62 U/L (14-36) H 02/15/24 16:50
ALT 65 U/L (0-35) H 02/15/24 16:50
Alkaline Phosphatase 1039 U/L (38-126) H 02/15/24 16:50
Data Reviewed
-
Lab Data: Labs Reviewed by me
Old Records: Reviewed
Impression/Plan
-
IMPRESSION:
PLAN:
# Open wound/diabetic foot infection of right lateral foot possible osteomyelitis
# History of right diabetic foot infection status post fifth toe amputation on 12/06 and revision fourth toe amputation on 12/13
-Vancomycin/Zosyn
-Foot x-ray pending
-Podiatry consulted
#Peripheral arterial disease status post diagnostic arteriogram, intravascular lithotripsy of the posterior tibial artery and proximal SFA, balloon angioplasty and nitroglycerin injection of posterior tibial artery on 12/21/23
-Vascular surgery consulted
-Continue aspirin and Plavix, statin
# Chronic transaminitis
-Stable
Type 1 diabetes
-Continue Lantus 2 units
-Insulin sliding scale
ESRD on hemodialysis Thursday and Thursday
-Patient had dialysis today
-Nephrology consulted
Chronic HFpEF
Moderate aortic stenosis/aortic regurgitation
Mild to moderate mitral stenosis
Paroxysmal SVT
Iron deficiency anemia
-Hemoglobin stable at 9.2
History of CVA
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
Full code
DVT prophylaxis�SCDs
Diabetic diet
[2024-02-15 20:17] VITALS: BP 114/55; BMI 31.1
[2024-02-15] MEDS: MORPHINE SULFATE 1 MG IV (20:18)
--- NOTE | 2024-02-15 20:51 | PHA.VAN.IN ---
Assessment
- Assessment
Renal Function: Patient has ESRD, on chronic Hemodialysis
Hemodialysis Schedule: MWF
Concomitant Antimicrobials: ZOSYN
- Previous Dosing Experience
Previous Regimen: DOSING BY RANDOM LEVELS
Date of Regimen: 12/06/23
Provided Trough of: UNKNOWN
Provided AUC of: UNKNOWN
Patient's SCR is: Decreased compared to previous dosing experience (12/06/23 SCR = 2.5)
Patient's weight is: Elevated compared to previous dosing experience (12/06/23 WT = 72.3 KG)
Plan
- Plan
Initial / Loading Dose: 2GM
Maintenance Regimen: DOSING BY RANDOM LEVEL
Monitoring: RANDOM VANCOMYIN LEVEL 02/16/24 AM
Pharmacokinetics Vancomycin I
- -
Patient Age: 48
Patient Sex: Female
Vancomycin Day #: 1
Indication: Diabetic Foot
Requesting Provider: NERI
Height / Weight:
Height 5 ft 3 in
Actual Weight 79.492 kg
Pertinent Past Medical History: ESRD; OM; S/P 4TH, 5TH [R] TOE AMPUTATIONS 12/27, OM
- Vital Signs / Lab Results
Temp Pulse Resp BP Pulse Ox
98.2 F 95 14 114/55 95
02/15/24 20:17 02/15/24 20:17 02/15/24 20:17 02/15/24 20:17 02/15/24 20:17
Lab Results - Hematology
02/15/24
15:55
WBC 8.7
Lab Results - Chemistry
02/15/24 02/15/24
15:55 16:50
BUN Cancelled 25 H
Creatinine Cancelled 1.6 H
Estimated Creat Clear Cancelled
Albumin Cancelled 2.6 L
[2024-02-15 20:54] LABS: Glucose - Point of Care 232 mg/dl (70-99)
[2024-02-15] MEDS: LANTUS 0.02 UNITS SC (21:27)
[2024-02-15 21:30] VITALS: BP 123/55
[2024-02-15 21:59] VITALS: BMI 31.1
[2024-02-15 23:10] VITALS: BP 99/48
[2024-02-16] MEDS: ZOSYN 50 IV ×2 (04:55→17:09)
[2024-02-16 05:14] VITALS: BP 132/67
[2024-02-16] MEDS: TYLENOL 500 MG PO (05:30)
[2024-02-16 06:45] LABS: % Basophils 0.8 % (0-2); % Eosinophils 1.7 % (0-6); % Immature Granulocytes 0.5 % (0-0.5); % Monocytes 7.6 % (1.7-9.3); % Neutrophils 69.4 % (42.2-75.2); Absolute Basophils 0.1 10^3/uL (0-0.2); Absolute Eosinophils 0.2 10^3/uL (0-0.7); Absolute Immature Granulocytes 0.1 10^3/uL (0-0.05); Absolute Lymphocytes 1.9 10^3/uL (1.2-3.4); Absolute Monocytes 0.7 10^3/uL (0.1-0.6); Absolute Neutrophils 6.5 10^3/uL (1.4-6.5); Hematocrit 28.7 % (37.0-47.0); Hemoglobin 9.1 g/dL (12.0-16.0); Mean Corp Hgb Conc. 31.7 g/dL (33.0-37.0); Mean Corpuscular Hgb 25.8 pg (27.0-31.0); Mean Corpuscular Volume 81.3 fL (81.0-99.0); Mean Platelet Volume 9.9 fL (7.4-10.4); Nucleated Red Blood Cells % 0 %; Platelet Count 268 10^3/uL (130-400); Red Blood Cell Count 3.53 10^6/uL (4.20-5.40); Red Cell Dist. Width 19.6 % (11.5-14.5); White Blood Cell Count 9.3 10^3/uL (4.8-10.8)
[2024-02-16 07:13] LABS: ALT (SGPT) 53 U/L (0-35); AST (SGOT) 51 U/L (14-36); Albumin 3.3 g/dl (3.5-5.0); Alkaline Phosphatase 864 U/L (38-126); Blood Urea Nitrogen 29 mg/dl (7-17); Calcium 9.4 mg/dl (8.4-10.2); Carbon Dioxide 28 mmol/L (22-30); Chloride 98 mmol/L (98-107); Estimated Creatinine Clearance 33 ml/min; Glucose 230 mg/dl (70-99); Potassium 4.6 mmol/L (3.5-5.1); Sodium 134 mmol/L (135-145); Total Protein 7.1 g/dl (6.3-8.2); eGFR 28.53
[2024-02-16 07:18] LABS: Vancomycin Random 22.7 ug/ml
[2024-02-16 07:32] LABS: Glucose - Point of Care 225 mg/dl (70-99)
[2024-02-16 07:45] VITALS: BP 114/58
[2024-02-16] MEDS: SANTYL OINTMENT 1 APPLIC TOPICAL (08:25)
[2024-02-16] MEDS: ASPIR LOW (ENTERIC COATED) 81 MG PO (08:25)
[2024-02-16] MEDS: NOVOLOG FLEXPEN-LOW RESISTANCE 2 UNITS SC (08:25)
[2024-02-16] MEDS: PLAVIX 75 MG PO (08:25)
[2024-02-16] MEDS: VISBIOME 1 CAP PO (08:25)
--- NOTE | 2024-02-16 08:50 | PHA.VAN.FU ---
Addendum entered and electronically signed by Elinor Anton RPH 02/17/24 10:03:
Agree with assessment and plan of deliverer pharmacy.
Original Note:
Vancomycin Assessment / Plan
- Assessment
Hemodialysis Schedule: Other (THURSDAY-THURSDAY PER NOTES)
WBC's are: WNL
In the past 24 hrs, patient has been: Afebrile
Concomitant Antimicrobials: ZOSYN
- Assessment - Therapeutic Drug Monitoring
Random Level: 22.7 - drawn ~12hrs after 2G loading dose
- Dosing Plan
Dosing by Level: Hold off on dosing today
- Monitoring Plan
Random Level: 02/17/24 0600
- Follow Up
Pharmacy will continue to follow.
Vancomycin Follow UP
- -
Patient Age: 48
Patient Sex: Female
Vancomycin Day #: 2
Indication: Diabetic Foot
Requesting Provider: NERI
Height / Weight:
Height 5 ft 3 in
Actual Weight 79.492 kg
Pertinent Past Medical History: ESRD; OM; S/P 4TH, 5TH [R] TOE AMPUTATIONS 12/27, OM
- Vital Signs / Lab Results
Temp Pulse Resp BP Pulse Ox
98.5 F 89 16 114/58 94
02/16/24 07:45 02/16/24 07:45 02/16/24 07:45 02/16/24 07:45 02/16/24 07:45
Lab Results - Hematology
02/15/24 02/16/24
15:55 06:26
WBC 8.7 9.3
Lab Results - Chemistry
02/15/24 02/15/24 02/16/24
15:55 16:50 06:26
BUN Cancelled 25 H 29 H
Creatinine Cancelled 1.6 H 2.1 H
Estimated Creat Clear Cancelled 33
Albumin Cancelled 2.6 L 3.3 L
Therapeutic Drug Monitoring
Random Vancomycin 22.7 ug/ml 02/16/24 06:26
--- NOTE | 2024-02-16 08:53 | CON.VAS ---
Consultation
Consultation Request
Date/Time Consultation Performed: 02/16/24 0830
Requesting Provider: Hospitalist
Performing Provider: Aletha Benson, RONY-C for Law Lai MD
Reason for Consultation: Nonhealing right foot amputation site
Medical History
-
Chief Complaint: Nonhealing right foot amputation site
History of Present Illness:
This is a 48-year-old female with significant past medical history of diabetes type 2, CAD(CABG 1981), chronic kidney disease, CVA x2, hypertension, retinopathy, CHF, and peripheral arterial disease who is known to our service as she recently
underwent right lower extremity arteriogram with intervention during recent hospitalization from 12/06/23 to 01/05/24. During that admission she also underwent right fifth toe amputation. She presented to ED on 02/15/2024 for continued nonhealing, odor,
and redness at wound. She denies fever, chills, and nausea vomiting.
Vascular Surgery:
12/21/23: Intravascular lithotripsy to diffuse right posterior tibial artery stenosis (3 mm x 80 mm E8 shockwave balloon). Intravascular lithotripsy to right above-knee popliteal artery stenosis (6 mm x 60 mm M5+ shockwave balloon). Intravascular
lithotripsy to right proximal superficial femoral artery stenosis (6 mm x 60 mm M5+ shockwave balloon). Diagnostic aortobiiliac arteriogram (CO2). Diagnostic right lower extremity arteriogram (CO2 plus 1/4 strength contrast)
Past Medical History
Past Medical History: Other (ight diabetic foot infection status post fifth toe amputation, peripheral arterial disease, ESRD on hemodialysis Thursday and Thursday, diastolic CHF, presumed type I diabetes, iron deficiency anemia, CVA, paroxysmal SVT,
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
Past Surgical History: Orthopedic (Right fifth digit amputation) and Other (See HPI for vascular history)
Social History
Tobacco: Non-Smoker
Alcohol: None
Drug: None
Allergies / Home Medications
Allergy/AdvReac Type Severity Reaction Status Date / Time
latex Allergy Hives Verified 02/15/24 20:14
�Medication �Instructions �Recorded �Confirmed �Type
omega 9-hju-ycx-fish oil 900 1 cap PO DAILYPRN PRN Supplement 04/06/23 02/15/24 History
mg-1,400 mg capsule,delayed release
aspirin 81 mg tablet,delayed 81 mg PO DAILY Blood Clot 05/04/23 02/15/24 Rx
release Prevention/Tx #30 tabs
atorvastatin 80 mg tablet 80 mg PO QPM #30 tabs 05/04/23 02/15/24 Rx
clopidogrel 75 mg tablet 75 mg PO DAILY #30 tabs 01/05/24 02/15/24 Rx
insulin aspart U-100 100 unit/mL 3 unit (0.03 mL) SC AC #15 mL 01/05/24 02/15/24 Rx
(3 mL) subcutaneous pen
metoprolol succinate 25 mg 25 mg PO HS #30 tabs 01/05/24 02/15/24 Rx
tablet,extended release 24 hr
Lactobac no.2-Bifidobac no.1-S. 1 cap PO DAILY 02/15/24 02/15/24 History
thermo 112.5 billion cell capsule
(Visbiome)
collagenase clostridium histo. 250 1 applic topical DAILY 02/15/24 02/15/24 History
unit/gram topical ointment (Santyl)
ergocalciferol (vitamin D2) 1,250 1,250 mcg PO HANSON 02/15/24 02/15/24 History
mcg (50,000 unit) capsule
insulin glargine 100 unit/mL (3 2 unit SC HS 02/15/24 02/15/24 History
mL) subcutaneous pen (Lantus
Solostar U-100 Insulin)
Review of Systems
-
History Source: Patient
Constitutional: Reports Fatigue
EENT: Reports No Symptoms
Respiratory: Reports No Symptoms
Cardiac: Reports No Symptoms
Abdomen/GI: Reports No Symptoms
: Reports No Symptoms
Musculoskeletal: Reports No Symptoms
Skin: Reports Other (Right fifth digit amputation site with redness, pain, and odor)
Neurological: Reports No Symptoms
Endocrine: Reports No Symptoms
Physical Exam
Vital Signs
Temp Pulse Resp BP Pulse Ox
98.5 F 89 16 114/58 94
02/16/24 07:45 02/16/24 07:45 02/16/24 07:45 02/16/24 07:45 02/16/24 07:45
Lab Results
02/16/24 06:26
02/16/24 06:26
Physical Exam
General: No Apparent Distress and Comfortable
HEENT: Normocephalic, Anicteric and Atraumatic
Respiratory: Non Labored Respirations
Cardiac: Negative JVD
GI: Soft, Non Tender and Non Distended
Musculoskeletal: Edema (Bilateral lower extremities +1 edema)
Skin: Other (Wound examined. Nonhealing, concern for foul-smelling odor and erythema.)
Neuro: Awake and Alert
Pulses: Right Dorsalis Pedis: +2
Assessment / Plan
-
Assessment: 48-year-old female with peripheral arterial disease and nonhealing right fifth digit amputation site
Plan:
Would recommend repeat angiography likely based on nonhealing to ensure adequacy for wound healing and nonrecurrent stenoses. Discussed this all with her. Agree with podiatric proceeding with debridement, appropriate for source control first.
And then can plan angiography likely 02/18/2024.
Will discuss with hospitalist and payroll tax specialist
Continue IV antibiotics
I performed this shared service with the attending. I evaluated the patient [id number] and have entered clinical documentation as shown in the encounter note. I performed the following component(s): history and physical exam. Note that medical
decision making is not final until attested by vascular attending.
--- NOTE | 2024-02-16 09:20 | W.CS.POD ---
Consult Summary - Podiatry
-
Patient is a 48y F with PMH significant for HTN, DM-II, multiple prior CVAs and valvular heart disease who had multiple Rt foot debridements with partial Rt 4th and 5th metatarsal amputations in 12/2023 due to gangrenous changes, she was following up
with me in clinic , healing very slowly, not much improvement in wound healing, she was using santyl to Rt foot wound, She was admitted in [facility] due to swollen and Rt lower leg with infected ,foul odor to RT foot wound. . She is in no acute
distress, no chest pain, no SOB, WBC count WNL, on IV abx,
Reviewed PMH, meds and allergies
Exam : Rt foot minimal edema, no erythema. No active purulence, presence of foul odor. No signs of any crepitus felt in the Rt foot. no signs of any deep abscess felt.
Rt foot ulcer about 6cm x 5cm with heavy fibrotic tissue base, very minimal granulation tissue noted, no exposed bone
Xray no osteomyelitic changes.
WBC count 9.3.
A/P: Rt foot infected ulcer
Possible osteomyelitis Rt 4th ans 5th distal metatarsal
Diabetic small vessel disease
Plan ; Cont IV abx.
Will d/w hosp service
Vascular surgery on board - possible angiogram on
Will schedule patient fr wound debridement today 02/15 if medically stable
Will start Dakins dressings to Rt foot
Discussed with patient about diabetic small vessel disease and delay or non healing . no guarantees given to save the limb, patient upset about the condition..
Podiatry for possible Rt foot debridement today
Podiatry will follow
[2024-02-16 10:20] LABS: Glycohemoglobin (HgbA1c) 10.1 % (4.0-5.6)
--- NOTE | 2024-02-16 10:24 | W.PN.UPDATE ---
Update Note
Progress Note Update
Seen and examined with RONY Benson. Full consultation to follow. Known to vascular service status post right lower extremity angioplasties for tissue loss. Continued nonhealing of the lateral right foot. Wound examined. Nonhealing, concern for
foul-smelling odor. She does have a palpable DP pulse. Noninvasive studies reviewed. Prior angiographic images reviewed. Despite presence of palpable DP pulse, based on prior intervention, she underwent posterior tibial artery angioplasty. In
addition underwent SFA and popliteal angioplasty. Would recommend repeat angiography likely based on nonhealing to ensure adequacy for wound healing and nonrecurrent stenoses. Discussed this all with her. Agree with podiatric proceeding with
debridement. I think source control is necessary first. And then can plan angiography likely 02/18/2024. Note recommend renal/nephrology evaluation as well given prior concerns about renal function. Patient now on hemodialysis so should not be a
concern, unless there is thought that renal function is salvageable.
[2024-02-16 11:36] LABS: Glucose - Point of Care 166 mg/dl (70-99)
[2024-02-16] MEDS: NOVOLOG FLEXPEN-LOW RESISTANCE SC ×2 (11:37→17:00)
--- NOTE | 2024-02-16 14:38 | W.CON.NEPH ---
Consultation
-
Date/Time Consultation Requested: 02/15/24 2025
Date/Time Consultation Performed: 02/16/24 1330
Requesting Provider: Radha Laboy
Performing Provider: Juana Talbot
Reason for Consultation: ESRD
Medical History
-
Chief Complaint: foot infection
History of Present Illness:
48-year-old female past medical history of right diabetic foot infection status post fifth toe amputation, peripheral arterial disease, ESRD on hemodialysis Thursday and Thursday at [facility], diastolic CHF, presumed type I diabetes on insulin,
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
swelling and pain of right foot over the past week. There is sloughing of material from the foot with foul smell. She denies any pain. She denies any fevers or chills.
She reports feeling fatigued while on dialysis, since her cr was at 1.5 HD changed to twice weekly. She noticed increased edema in last few days. She reports compliance with diet and FR 38ounces/day. SHe is able to urinate few times daily and thinks
diuretics stopped her from urinating. She also feels fatigued while taking metoprolol so it had recently been decreased to 50 mg to 25 mg. She stopped taking it a few days ago. LAst HD yesterday.
Patient was recently admitted in December for right diabetic foot infection. Patient underwent fifth toe amputation which was left open for secondary intention healing. MRI subsequently showed osteomyelitis of the fifth metatarsal head and proximal
phalanx of the fourth toe and tissue necrosis and patient underwent debridement and fourth toe amputation. During this time she has MARYLOU with anuria and started on HD.
Patient later underwent diagnostic arteriogram/intravascular trip to the posterior tibial artery and proximal SFA, balloon angioplasty nitroglycerin injection of the posterior tibial artery. Plavix was started.
Past Medical History
right diabetic foot infection status post fifth toe amputation, peripheral arterial disease, ESRD on hemodialysis Thursday and Thursday, diastolic CHF, presumed type I diabetes, iron deficiency anemia, CVA, paroxysmal SVT, Guillain-Song� with chronic
left lower extremity weakness, hyponatremia, , mitral stenosis
Past Surgical History: Tonsilectomy (Eye surgery Open heart surgery as a child) and Other (right foot amputation of Toes)
Social History
Tobacco: Non-Smoker
Alcohol: Former
Drug: None
Personal: Single
Employment: Disabled
Family History
MOther side family with HTN, DM and ESRD On dialysis
Allergies / Home Medications
Allergy/AdvReac Type Severity Reaction Status Date / Time
latex Allergy Hives Verified 02/15/24 20:14
�Medication �Instructions �Recorded �Confirmed �Type
omega 0-zva-gye-fish oil 900 1 cap PO DAILYPRN PRN Supplement 04/06/23 02/15/24 History
mg-1,400 mg capsule,delayed release
aspirin 81 mg tablet,delayed 81 mg PO DAILY Blood Clot 05/04/23 02/15/24 Rx
release Prevention/Tx #30 tabs
atorvastatin 80 mg tablet 80 mg PO QPM #30 tabs 05/04/23 02/15/24 Rx
clopidogrel 75 mg tablet 75 mg PO DAILY #30 tabs 01/05/24 02/15/24 Rx
metoprolol succinate 25 mg 25 mg PO HS #30 tabs 01/05/24 02/15/24 Rx
tablet,extended release 24 hr
Lactobac no.2-Bifidobac no.1-S. 1 cap PO DAILY probiotic 02/15/24 02/15/24 History
thermo 112.5 billion cell capsule
(Visbiome)
collagenase clostridium histo. 250 1 applic topical DAILY Skin Issues 02/15/24 02/15/24 History
unit/gram topical ointment (Santyl)
ergocalciferol (vitamin D2) 1,250 1,250 mcg PO HANSON Supplement 02/15/24 02/15/24 History
mcg (50,000 unit) capsule
insulin glargine 100 unit/mL (3 2 unit SC HS Diabetes 02/15/24 02/15/24 History
mL) subcutaneous pen (Lantus
Solostar U-100 Insulin)
insulin aspart U-100 100 unit/mL 3 unit SC AC Diabetes 02/16/24 02/15/24 History
(3 mL) subcutaneous pen
Physical Exam
Vital Signs
Vital Signs
Temp Pulse Resp BP Pulse Ox
98.5 F 89 16 114/58 94
02/16/24 07:45 02/16/24 07:45 02/16/24 07:45 02/16/24 07:45 02/16/24 07:45
Lab Results
WBC 9.3 10^3/uL (4.8-10.8) 02/16/24 06:26
RBC 3.53 10^6/uL (4.20-5.40) L 02/16/24 06:26
Hgb 9.1 g/dL (12.0-16.0) L 02/16/24 06:26
Hct 28.7 % (37.0-47.0) L 02/16/24 06:26
Plt Count 268 10^3/uL (130-400) 02/16/24 06:26
Sodium 134 mmol/L (135-145) L 02/16/24 06:26
Potassium 4.6 mmol/L (3.5-5.1) 02/16/24 06:26
Chloride 98 mmol/L (98-107) 02/16/24 06:26
Carbon Dioxide 28 mmol/L (22-30) 02/16/24 06:26
BUN 29 mg/dl (7-17) H 02/16/24 06:26
Creatinine 2.1 mg/dL (0.6-1.0) H 02/16/24 06:26
eGFR 28.53 02/16/24 06:26
Glucose 230 mg/dl (70-99) H 02/16/24 06:26
Calcium 9.4 mg/dl (8.4-10.2) 02/16/24 06:26
Albumin 3.3 g/dl (3.5-5.0) L 02/16/24 06:26
foot X ray:
IMPRESSION: Abnormal lucency and cortical irregularity of the remaining right fifth metatarsal, suspicious for fifth metatarsal osteomyelitis.
Physical Exam
General: Awake, Alert, Oriented, AOx3, No Distress and Nontoxic
HEENT: Anicteric, Conjunctivae Clear, Neck Supple and No JVD (?JVD)
Respiratory: Clear, Normal Excursion and Nonlabored Respirations
Cardiac: S1/S2 and Regular Rate/Rhythm
Abdomen: Soft and Nontender
Rectal: Deferred by Provider
Musculoskeletal: No Cyanosis and Edema (2+ in LEs)
Skin: No Rash
Neuro: Nonfocal/Grossly Intact
Psych: Mood/afflect pleasant
Data Reviewed
-
Radiology: Report Reviewed by me
Labs: Labs Reviewed by me and Discussed with Patient
Assessment/Plan
-
IMP:
Open wound/diabetic foot infection of right lateral foot possible osteomyelitis
History of right diabetic foot infection status post fifth toe amputation on 12/06 and revision fourth toe amputation on 12/13
Peripheral arterial disease status post diagnostic arteriogram, intravascular lithotripsy of the posterior tibial artery and proximal SFA, balloon angioplasty and nitroglycerin injection of posterior tibial artery on 12/21/23
Chronic transaminitis
Type 1 diabetes
ESRD on hemodialysis Thursday and Thursday
Chronic HFpEF
chr anemia
Moderate aortic stenosis/aortic regurgitation
Mild to moderate mitral stenosis
Paroxysmal SVT
Iron deficiency anemia
History of CVA
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
PLan:
A/w right foot wound infection with suspicion of osteo
ESRD-low cr but seem to have vol issues
would do HD MWF while here-pt agreeable
maintain renal diet and FR 40 ounce/day
given that she has residual renal function likely decrease contrast load during angio-planned for
for debridement today by podiatry
BP stable on home meds
follow h/h , cont ANDRA with HD
d/w primary and pt
--- NOTE | 2024-02-16 15:35 | W.PN.HOSP.TC ---
Today's Communication/Plan
-
consult ENT for right hearing loss--no significant abnormalities on exam by my exam
apprec podiatry, renal, vascular
Assessment / Plan
Assessment / Plan
pt is a 48 year old female
Open wound/diabetic foot infection of right lateral foot with suspected osteomyelitis (History of right diabetic foot infection status post fifth toe amputation on 12/06 and revision fourth toe amputation on 12/13)--cont vanco/zosyn--apprec podiatry
and plans are for OR tonight (but now tomorrow due to OR scheduling)
Peripheral arterial disease status post diagnostic arteriogram, intravascular lithotripsy of the posterior tibial artery and proximal SFA, balloon angioplasty and nitroglycerin injection of posterior tibial artery on 12/21/23--apprec vascular and
plan for Angiogram --Continue aspirin and Plavix, statin
Chronic transaminitis--Stable
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
ESRD on hemodialysis Thursday and Thursday--likely needs MWF for volume control--apprec renal
Chronic HFpEF
Moderate aortic stenosis/aortic regurgitation/Mild to moderate mitral stenosis
Paroxysmal SVT
Iron deficiency anemia--Hemoglobin stable at 9.2
History of CVA
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
Hearing loss (per pt)--consult ENT
Full code
DVT prophylaxis�SCDs
Anticipated Discharge: > 48 hours
Subjective/Interval History
-
Date of Service: February 16, 2024
pt asking repeatedly what the plan is despite me telling her what the plan is
Objective Data
-
Labs:
Laboratory Results
02/16/24
06:26
WBC 9.3
Hgb 9.1 L
Hct 28.7 L
Plt Count 268
Sodium 134 L
Potassium 4.6
Chloride 98
Carbon Dioxide 28
BUN 29 H
Creatinine 2.1 H
Glucose 230 H
Calcium 9.4
Total Bilirubin 1.0
AST 51 H
ALT 53 H
Alkaline Phosphatase 864 H
Vital Signs:
max temp for 24 hours
02/16/24
05:14
Temp 99.7 F
Vital Signs
Temp Pulse Resp BP Pulse Ox
98.5 F 89 16 114/58 94
02/16/24 07:45 02/16/24 07:45 02/16/24 07:45 02/16/24 07:45 02/16/24 07:45
I&O
02/15/24 02/16/24 02/17/24
06:59 06:59 06:59
Intake Total 630 / 630 480 / 480
Balance 630 / 630 480 / 480
Review of Systems
-
All other systems: Reviewed and negative
EENT: Reports Hearing Loss (right ear)
Physical Exam
-
General: Well Developed, Well Nourished and No Apparent Distress
HEENT: Normocephalic, Atraumatic and Ears Appear Normal (non obstructing wax in right canal--no other abnormalities ); Negative Oxygen
Respiratory: Clear to Auscultation; Negative Wheezes, Rales, Rhonchi or Crackles
Cardiac: Regular Rhythm, S1/S2 and Murmur
GI: Soft, Nontender, Nondistended and Normal Bowel Sounds
Musculoskeletal: No Clubbing and No Cyanosis; Negative No Edema
Skin: Warm
Neuro: Awake
--- NOTE | 2024-02-16 15:58 | CM ---
Patient seen at bedside with physician. Patient for further testing tomorrow. Patient reports that she goes to the [facility] 2x weekly and also reports that she is back at her apartment. Patient stated that she did not like the [place] [facility] Patient reports she resides in an apartment, with an elevator, with her daughter, son, and three younger children. Patient reports she has had VN in the past, Patient has walker. Patient confirms PCP Dr. Daniel, pharmacy
[facility] in [place], confirms prescription coverage. Patient denies food insecurities at home. But did state that she sometimes has problems with bills, CM reviewed option of [employer]. CM will continue to follow for discharge planning
needs.
Plan; home with VN needs, watch for possible SNF needs
[2024-02-16 16:35] LABS: Glucose - Point of Care 164 mg/dl (70-99)
[2024-02-16 16:38] VITALS: BP 151/86
[2024-02-16] MEDS: LIPITOR 80 MG PO (17:09)
--- NOTE | 2024-02-16 18:22 | W.PN.ENT ---
Today's Communication
-
seen at bedside
Impression / Plan
-
ear feels plugged but looks good-no fluid
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
follow up in office for audiogram if problems continue
Subjective Data
-
right ear feels plugged
on hemodialysis
Objective Data
-
Vital Signs
Temp Pulse Resp BP Pulse Ox
97.4 F 95 16 151/86 94
02/16/24 16:38 02/16/24 16:38 02/16/24 16:38 02/16/24 16:38 02/16/24 16:38
Intake & Output
02/15/24 02/16/24 02/17/24
06:59 06:59 06:59
Intake:
Oral fluids 480 / 480 960 / 960
IV fluids (Total) 50 / 50
IV piggybacks 100 / 100
Other:
Number of approximated MODERATE 1
amounts of urine
Number of approximated LARGE 1
amounts of urine
How many times incontinent 1
MODERATE amount urine
Lab Results
02/16/24 06:26
02/16/24 06:26
Calcium 9.4 mg/dl (8.4-10.2) 02/16/24 06:26
Total Bilirubin 1.0 mg/dl (0.2-1.3) 02/16/24 06:26
AST 51 U/L (14-36) H 02/16/24 06:26
ALT 53 U/L (0-35) H 02/16/24 06:26
Alkaline Phosphatase 864 U/L (38-126) H 02/16/24 06:26
ears clear-no wax, infection or fluid
Physical Exam
-
no wax, fluid or infection in either ear
significant evidence of bruxism and tongue thrust
Chest: Clear
Respiratory: Clear
Data Reviewed
-
Radiology Results: Report Reviewed
[2024-02-16 21:25] LABS: Glucose - Point of Care 301 mg/dl (70-99)
[2024-02-16] MEDS: LANTUS 0.02 UNITS SC (21:25)
[2024-02-16 23:52] VITALS: BP 116/60
[2024-02-17] VITALS (7 sets, daily range): BP systolic 146–178; BP diastolic 71–87; BMI 31.1
--- NOTE | 2024-02-17 05:22 | CON.MD ---
Consultation - Medical
-
Chief complaint: right ear plugged
History of present illness: I was asked to see this 48-year-old woman with a history of diabetes and renal failure for a sense of decreased hearing in the right ear. She does not currently have any ear pain. She states that the ear feels plugged.
She does not have significant drainage from the ear and has not been experiencing problems with vertigo. She is dialyzed a couple days a week and has a history of diabetic foot on the right side. She has suspected osteomyelitis. I was asked to
see the patient regarding her right ear.
Past medical history:
Chronic illnesses: Insulin-dependent diabetes, renal failure, diabetic foot with amputation and suspected osteomyelitis, history of hypertension, history of heart disease,
Allergies: Latex causes hives
Medications: Aspirin 81 mg a day, atorvastatin 80 mg p.o. every afternoon, clopidogrel 75 mg p.o. daily, Santyl 1 application daily, ergocalciferol 1250 mcg p.o. daily, insulin aspart U�100 3 units subcu AC, Lantus Solostar U100 insulin 2 units SQ
nightly
Visbiome 1 cap p.o. daily
Metoprolol 25 mg p.o. nightly
[place]-3�DHA�EPA�fish oil1 cap p.o. daily
Hospitalizations: The patient is currently hospitalized for diabetic foot
Family history asked and is noncontributory
Past surgical history: The patient has undergone partial amputation of the right foot
Review of systems: Positive for right ear plugged sensation, occasional right ear discomfort, negative for chest pain, negative for abdominal pain
Physical examination:
Head: Atraumatic and normocephalic
Eyes: Extraocular movements are intact
Ears: Clear without signs of fluid or infection, no significant wax impaction, no drainage noted
Nose: Clear without infection
Neck: Supple without adenopathy
Cranial nerves: 2 through 12 are intact
Salivary glands: Normal to examination
Thyroid gland normal to palpation
Skin: Right neck tattoos, no infection noted
Oral cavity: The patient it shows evidence of bruxism and tongue thrust with bite bates on her buccal mucosa and pressure bates on her tongue.
Hearing: Able to hear fingers rubbing together equally on both sides
Impression: This patient has a history of a plugged sensation in her right ear. Her ears look normal without signs of fluid or infection with no significant wax impaction. The patient is able to hear my fingers rubbing together on each side
equally. 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
Plan: I discussed with the patient that she needs to pay attention to what she is doing with her jaw under her tongue. She relax the jaw and avoid clenching and grinding her teeth. Heat may help over the jaw muscles. The problem should gradually
improve but may recur. We discussed the jaw muscles and the relationship between jaw muscle tension and tensor tympani muscle tension. If she has persistent problems, she should follow-up in the office where we can perform a formal audiogram and
evaluate further.
[2024-02-17] MEDS: ZOSYN 50 IV (05:44)
[2024-02-17] MEDS: FLUSH (NSS) 1 FLUSH IV (05:44)
[2024-02-17 06:27] LABS: Hematocrit 28.7 % (37.0-47.0); Hemoglobin 9.1 g/dL (12.0-16.0); Mean Corp Hgb Conc. 31.7 g/dL (33.0-37.0); Mean Corpuscular Hgb 25.1 pg (27.0-31.0); Mean Corpuscular Volume 79.3 fL (81.0-99.0); Mean Platelet Volume 9.7 fL (7.4-10.4); Platelet Count 301 10^3/uL (130-400); Red Blood Cell Count 3.62 10^6/uL (4.20-5.40); Red Cell Dist. Width 19.6 % (11.5-14.5); White Blood Cell Count 7.3 10^3/uL (4.8-10.8)
[2024-02-17 07:22] LABS: ALT (SGPT) 48 U/L (0-35); AST (SGOT) 44 U/L (14-36); Albumin 3.4 g/dl (3.5-5.0); Alkaline Phosphatase 930 U/L (38-126); Blood Urea Nitrogen 36 mg/dl (7-17); Calcium 9.5 mg/dl (8.4-10.2); Carbon Dioxide 26 mmol/L (22-30); Chloride 99 mmol/L (98-107); Estimated Creatinine Clearance 25 ml/min; Glucose 267 mg/dl (70-99); Magnesium 1.9 mg/dl (1.6-2.3); Potassium 4.5 mmol/L (3.5-5.1); Sodium 133 mmol/L (135-145); Total Bilirubin 1.2 mg/dl (0.2-1.3); Total Protein 7.1 g/dl (6.3-8.2)
--- NOTE | 2024-02-17 07:56 | PN.DE.MGMTRT ---
Insulin Management
- -
02/17/2024 Diabetes Management Consult
Patient admitted with c/o R lower extremity redness, swelling and foul odor, also c/o hearing loss in R ear. PMH ESRD (dialysis MWF), CAD (CABG 1981), CHF, HTN, HCL, type 2 diabetes requiring insulin, Guillain [place], blind R eye. Patient was
inpatient 12/27 for 1 month s/p amputation 2 toes R foot. A1C 10.1%, cr 2.7, eGFR 21.10. Prior to admission reports she was taking lantus 2 units @ HS and novolog 3 units AC.
Patient is awake alert and oriented, able to discuss diabetes management.
Glucose has trended from 164, while NPO to 301 receiving 2 units lantus @ hs. Will start 3 units Novolog AC with low corrective.
Patient has working glucose monitor
Will follow.
Diabetes History
- -
Type of Diabetes: 2 requiring insulin
Pre-Admission Diabetes Regimen
02/17/24
06:17
Creatinine 2.7 H
Lab Results
Hemoglobin A1c 10.1 % (4.0-5.6) H 02/16/24 06:26
Insulin Pump Settings
IP Diabetes Regimen
02/16/24 02/16/24 02/16/24
11:34 16:34 21:24
Glucose
POC Glucose 166 H 164 H 301 H
02/17/24
06:17
Glucose 267 H
POC Glucose
Meal type: Lunch
Meal type: Breakfast
Meal type: Lunch
Meal type: Breakfast
Meal type: Breakfast
Patient Education
--- NOTE | 2024-02-17 08:08 | PHA.VAN.FU ---
Addendum entered and electronically signed by Elinor Anton Ad 02/17/24 10:03:
Agree with assessment and plan of compounding pharmacy technician.
Original Note:
Vancomycin Assessment / Plan
- Assessment
Hemodialysis Schedule: MWF
WBC's are: WNL
In the past 24 hrs, patient has been: Afebrile
- Assessment - Therapeutic Drug Monitoring
Random Level: 19 - drawn ~24hrs after previous level of 22.7
Calculated ke: 0.0075
Calculated half life (H): 92.8
- Dosing Plan
Dosing by Level: Re-dose today
Dosing Comments: Vanc 750mg x1
- Monitoring Plan
No level(s) ordered at this time: consider pre-HD level Thursday
- Follow Up
Pharmacy will continue to follow.
Vancomycin Follow UP
- -
Patient Age: 48
Patient Sex: Female
Vancomycin Day #: 3
Indication: Diabetic Foot
Requesting Provider: NERI
Height / Weight:
Height 5 ft 3 in
Actual Weight 79.492 kg
Pertinent Past Medical History: ESRD; OM; S/P 4TH, 5TH [R] TOE AMPUTATIONS 12/27, OM
- Vital Signs / Lab Results
Temp Pulse Resp BP Pulse Ox
98.1 F 84 16 168/79 97
02/17/24 07:30 02/17/24 07:30 02/17/24 07:30 02/17/24 07:30 02/17/24 07:30
Lab Results - Hematology
02/15/24 02/16/24 02/17/24
15:55 06:26 06:17
WBC 8.7 9.3 7.3
Lab Results - Chemistry
02/15/24 02/15/24 02/16/24
15:55 16:50 06:26
BUN Cancelled 25 H 29 H
Creatinine Cancelled 1.6 H 2.1 H
Estimated Creat Clear Cancelled 33
Albumin Cancelled 2.6 L 3.3 L
02/17/24
06:17
BUN 36 H
Creatinine 2.7 H
Estimated Creat Clear 25
Albumin 3.4 L
Therapeutic Drug Monitoring
Random Vancomycin 19.0 ug/ml 02/17/24 06:16
[2024-02-17 08:23] LABS: Glucose - Point of Care 232 mg/dl (70-99)
[2024-02-17] MEDS: ASPIR LOW (ENTERIC COATED) 81 MG PO (09:00)
[2024-02-17] MEDS: SANTYL OINTMENT 1 APPLIC TOPICAL (09:00)
[2024-02-17] MEDS: VISBIOME 1 CAP PO (09:01)
[2024-02-17] MEDS: PLAVIX 75 MG PO (09:01)
[2024-02-17] MEDS: NOVOLOG FLEXPEN-LOW RESISTANCE 2 UNITS SC (09:06)
[2024-02-17] MEDS: NOVOLOG FLEXPEN 3 UNITS SC ×2 (09:07→19:30)
--- NOTE | 2024-02-17 12:19 | W.PN.NEPH.HD ---
Assessment
-
Patient seen on dialysis
Systolic blood pressure 189
High-volume UF at 3 kg
Creatinine continues to rise between treatments
Patient states that she does not need dialysis
I told her she does or she will
Progress Note - Hemodialysis
-
Date of Service: February 17, 2024
Duration: 30 minutes and 3 hours
Potassium Bath: 2
Calcium Bath: 2.5
Opti-Dialyzer: 160
Ultrafiltration: Other (3 kg )
Blood Flow: 400
Dialysate Flow: 600
Heparin: None
EPO: 4000
--- NOTE | 2024-02-17 13:07 | W.PN.HOSP.TC ---
Today's Communication/Plan
-
OR tonight
Assessment / Plan
Assessment / Plan
pt is a 48 year old female
Open wound/diabetic foot infection of right lateral foot with suspected osteomyelitis (History of right diabetic foot infection status post fifth toe amputation on 12/06 and revision fourth toe amputation on 12/13)--cont vanco/zosyn--apprec podiatry
and plans are for OR tonight
Peripheral arterial disease status post diagnostic arteriogram, intravascular lithotripsy of the posterior tibial artery and proximal SFA, balloon angioplasty and nitroglycerin injection of posterior tibial artery on 12/21/23--apprec vascular and
plan for Angiogram --Continue aspirin and Plavix, statin
Chronic transaminitis--Stable
Type 1 diabetes (pt insists she has been told it is type 2)--nevertheless, it is not controlled as HGB A1C is 10--Continue Lantus 2 units--Insulin sliding scale--apprec DM EDI CONSULTANT
ESRD on hemodialysis Thursday and Thursday--likely needs MWF for volume control--apprec renal
Chronic HFpEF
Moderate aortic stenosis/aortic regurgitation/Mild to moderate mitral stenosis
Paroxysmal SVT
Iron deficiency anemia--Hemoglobin stable at 9.2
History of CVA
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
Hearing loss (per pt)--consult ENT
Full code
DVT prophylaxis�SCDs
Anticipated Discharge: > 48 hours
Subjective/Interval History
-
Date of Service: February 17, 2024
pt starting HD--for surgery later today
Objective Data
-
Labs:
Laboratory Results
02/17/24
06:17
WBC 7.3
Hgb 9.1 L
Hct 28.7 L
Plt Count 301
Sodium 133 L
Potassium 4.5
Chloride 99
Carbon Dioxide 26
BUN 36 H
Creatinine 2.7 H
Glucose 267 H
Calcium 9.5
Total Bilirubin 1.2
AST 44 H
ALT 48 H
Alkaline Phosphatase 930 H
Vital Signs:
max temp for 24 hours
02/16/24
23:52
Temp 98.7 F
Vital Signs
Temp Pulse Resp BP Pulse Ox
98.1 F 84 16 168/79 97
02/17/24 07:30 02/17/24 07:30 02/17/24 07:30 02/17/24 07:30 02/17/24 07:30
I&O
02/16/24 02/17/24 02/18/24
06:59 06:59 06:59
Intake Total 630 / 630 960 / 960
Balance 630 / 630 960 / 960
Review of Systems
-
All other systems: Reviewed and negative
Physical Exam
-
General: Well Developed, Well Nourished and No Apparent Distress
HEENT: Normocephalic and Atraumatic
Respiratory: Clear to Auscultation; Negative Wheezes or Rhonchi
Cardiac: Regular Rhythm and S1/S2; Negative Murmur
GI: Soft, Nontender, Nondistended and Normal Bowel Sounds
Musculoskeletal: No Clubbing and No Cyanosis; Negative No Edema (bilateral LE edema left > right)
Neuro: Awake
--- NOTE | 2024-02-17 13:20 | CM ---
Patient seen at bedside with physician. Patient currently is on HD. Patient for procedure later today. Pending medical treatment plan possible need for SNF, however patient is reluctant to go to SNF. Patient goes to [facility]. CM will
continue to follow for discharge planning needs.
Plan; home with VN/HD at prior clinic vs SNF
[2024-02-17] MEDS: RETACRIT 4000 UNITS IV (13:52)
[2024-02-17] MEDS: VANCOCIN 150 IV (14:25)
[2024-02-17] MEDS: HEPARIN 3900 UNITS INTRACATH (15:15)
[2024-02-17] MEDS: NOVOLOG FLEXPEN SC (15:29)
[2024-02-17] MEDS: NOVOLOG FLEXPEN-LOW RESISTANCE SC ×3 (15:29→23:50)
[2024-02-17] MEDS: ZOSYN IV (17:23)
--- NOTE | 2024-02-17 17:55 | W.SUR.POST ---
Surgical Immediate Post Op
Note
Pre Op Diagnosis: Rt foot infected ulcer
Post Op Diagnosis: Same as above
Procedure Performed: Right foot ulcer debridement
Primary Surgeon: Dr. Casey
Secondary Surgeons: None
Anesthesia: MAC with local block
Estimated Blood Loss: 2cc's
Fluids: none
Drains/Shunts: none
Specimens/Cultures: Aerobic and anaerobic
Doppler/Duplex/Angio (Y/N): No
Complications: None
Operative Findings: No deep tissue purulence, some healthy bleeding noted.
PT stable rt foot vascular status and stable vital signs in PACu
[2024-02-17 18:02] LABS: Glucose - Point of Care 171 mg/dl (70-99)
[2024-02-17] MEDS: LIPITOR 80 MG PO (19:31)
[2024-02-17] MEDS: NOVOLOG FLEXPEN-LOW RESISTANCE 1 UNITS SC (19:31)
[2024-02-17 21:55] LABS: Glucose - Point of Care 224 mg/dl (70-99)
[2024-02-17] MEDS: MORPHINE SULFATE 1 MG IV (22:13)
[2024-02-17] MEDS: LANTUS 0.02 UNITS SC (22:14)
[2024-02-18] VITALS (16 sets, daily range): BP systolic 12–169; BP diastolic 48–75
[2024-02-18 05:37] LABS: Glucose - Point of Care 266 mg/dl (70-99)
[2024-02-18 06:17] LABS: APTT 28.8 Sec (23.4-35.0); Hematocrit 28.5 % (37.0-47.0); Hemoglobin 9.1 g/dL (12.0-16.0); INR 1.14; Mean Corp Hgb Conc. 31.9 g/dL (33.0-37.0); Mean Corpuscular Hgb 26.1 pg (27.0-31.0); Mean Corpuscular Volume 81.9 fL (81.0-99.0); Mean Platelet Volume 9.9 fL (7.4-10.4); PT 14.6 Sec (11.4-14.6); Platelet Count 253 10^3/uL (130-400); Red Blood Cell Count 3.48 10^6/uL (4.20-5.40); Red Cell Dist. Width 19.4 % (11.5-14.5); White Blood Cell Count 9.1 10^3/uL (4.8-10.8)
[2024-02-18] MEDS: NOVOLOG FLEXPEN-LOW RESISTANCE 3 UNITS SC (06:21)
[2024-02-18] MEDS: ZOSYN 50 IV ×2 (06:21→18:39)
--- NOTE | 2024-02-18 07:14 | PN.DE.MGMTRT ---
Insulin Management
- -
02/18/2024 Diabetes Management Consult Follow up
Patient admitted with c/o R lower extremity redness, swelling and foul odor, also c/o hearing loss in R ear. PMH ESRD (dialysis MWF), CAD (CABG 1981), CHF, HTN, HCL, type 2 diabetes requiring insulin, Guillain [place], blind R eye. Patient was
inpatient 12/27 for 1 month s/p amputation 2 toes R foot. A1C 10.1%, cr 2.7, eGFR 21.10. Prior to admission reports she was taking lantus 2 units @ HS and novolog 3 units AC.
Patient is awake alert and oriented, able to discuss diabetes management.
Went to OR 02/16 late evening. Remains NPO for procedure later today.
Glucose has trended up to 224 @ HS did receive novolog 3 units plus corrective, 2 units lantus @ hs. Will resume 3 units Novolog AC with low corrective when diet advanced.
Will increase HS lantus to 3 units and check 3AM glucose. Discussed with patient and nurse.
Patient has working glucose monitor
Will follow.
Diabetes History
- -
Type of Diabetes: 2 requiring insulin
Pre-Admission Diabetes Regimen
02/17/24
06:17
Creatinine 2.7 H
Lab Results
Hemoglobin A1c 10.1 % (4.0-5.6) H 02/16/24 06:26
Insulin Pump Settings
IP Diabetes Regimen
02/17/24 02/17/24 02/17/24
06:17 08:22 18:01
Glucose 267 H
POC Glucose 232 H 171 H
02/17/24 02/18/24
21:54 05:35
Glucose
POC Glucose 224 H 266 H
Patient Education
[2024-02-18 07:23] LABS: Blood Urea Nitrogen 26 mg/dl (7-17); Calcium 8.9 mg/dl (8.4-10.2); Carbon Dioxide 26 mmol/L (22-30); Chloride 101 mmol/L (98-107); Estimated Creatinine Clearance 29 ml/min; Glucose 276 mg/dl (70-99); Sodium 135 mmol/L (135-145); eGFR 25.58
[2024-02-18] MEDS: NOVOLOG FLEXPEN SC ×3 (08:30→16:00)
[2024-02-18] MEDS: PLAVIX 75 MG PO (09:02)
[2024-02-18] MEDS: VISBIOME 1 CAP PO (09:02)
[2024-02-18] MEDS: ASPIR LOW (ENTERIC COATED) 81 MG PO (09:03)
[2024-02-18] MEDS: SANTYL OINTMENT TOPICAL (09:24)
--- NOTE | 2024-02-18 11:14 | PHA.VAN.FU ---
Addendum entered and electronically signed by Elinor Anton RPH 02/18/24 12:15:
Consult reviewed with pharmacy technologist. Agree with assessment and plan below.
Original Note:
Vancomycin Assessment / Plan
- Assessment
Hemodialysis Schedule: MWF
Last Hemodialysis performed: Thu02/17/24
- Dosing Plan
Dosing by Level: Hold off on dosing today
- Monitoring Plan
Random Level: Pre-HD 02/19/24 0600
- Follow Up
Pharmacy will continue to follow.
Vancomycin Follow UP
- -
Patient Age: 48
Patient Sex: Female
Vancomycin Day #: 4
Indication: Diabetic Foot
Requesting Provider: NERI
Height / Weight:
Height 5 ft 3 in
Actual Weight 76.884 kg
Pertinent Past Medical History: ESRD; OM; S/P 4TH, 5TH [R] TOE AMPUTATIONS 12/27, OM
- Vital Signs / Lab Results
Temp Pulse Resp BP Pulse Ox
99.2 F 91 16 110/54 94
02/18/24 07:30 02/18/24 07:30 02/18/24 07:30 02/18/24 07:30 02/18/24 07:30
Lab Results - Hematology
02/15/24 02/16/24 02/17/24
15:55 06:26 06:17
WBC 8.7 9.3 7.3
02/18/24
05:52
WBC 9.1
Lab Results - Chemistry
02/15/24 02/15/24 02/16/24
15:55 16:50 06:26
BUN Cancelled 25 H 29 H
Creatinine Cancelled 1.6 H 2.1 H
Estimated Creat Clear Cancelled 33
Albumin Cancelled 2.6 L 3.3 L
02/17/24 02/18/24
06:17 05:52
BUN 36 H 26 H
Creatinine 2.7 H 2.3 H
Estimated Creat Clear 25 29
Albumin 3.4 L
Microbiology Results
02/17/24 18:02 Gram Stain - Preliminary
Foot - Right
02/15/24 20:15 MRSA Screen - Final
Nose No Methicillin Resistant Staphylococcus aureus isolated.
Therapeutic Drug Monitoring
Random Vancomycin 19.0 ug/ml 02/17/24 06:16
--- NOTE | 2024-02-18 11:19 | W.PN.HOSP.TC ---
Today's Communication/Plan
-
d/c pending vascular surgery decision
Assessment / Plan
Assessment / Plan
pt is a 48 year old female
Open wound/diabetic foot infection of right lateral foot with suspected osteomyelitis (History of right diabetic foot infection status post fifth toe amputation on 12/06 and revision fourth toe amputation on 12/13)--cont vanco/zosyn--apprec podiatry
s/p OR with no deep tissue purulence
Peripheral arterial disease status post diagnostic arteriogram, intravascular lithotripsy of the posterior tibial artery and proximal SFA, balloon angioplasty and nitroglycerin injection of posterior tibial artery on 12/21/23--apprec vascular and
plan for Angiogram --Continue aspirin and Plavix, statin
Chronic transaminitis--Stable
Type 1 diabetes (pt insists she has been told it is type 2)--nevertheless, it is not controlled as HGB A1C is 10--Continue Lantus 2 units--Insulin sliding scale--apprec DM LAND ECONOMIST
ESRD on hemodialysis Thursday and Thursday--likely needs MWF for volume control--apprec renal
Chronic HFpEF
Moderate aortic stenosis/aortic regurgitation/Mild to moderate mitral stenosis
Paroxysmal SVT
Iron deficiency anemia--Hemoglobin stable at 9.2
History of CVA
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
Hearing loss (per pt)--apprec ENT--due to clenching jaw
Full code
DVT prophylaxis�SCDs
Anticipated Discharge: 24 - 48 hours
Subjective/Interval History
-
Date of Service: February 18, 2024
pt unclear if still having vascular surgery today
Objective Data
-
Labs:
Laboratory Results
02/18/24
05:52
WBC 9.1
Hgb 9.1 L
Hct 28.5 L
Plt Count 253
PT 14.6
INR 1.14
APTT 28.8
Sodium 135
Potassium 4.0
Chloride 101
Carbon Dioxide 26
BUN 26 H
Creatinine 2.3 H
Glucose 276 H
Calcium 8.9
Vital Signs:
max temp for 24 hours
02/17/24
22:05
Temp 98.9 F
Vital Signs
Temp Pulse Resp BP Pulse Ox
99.2 F 91 16 110/54 94
02/18/24 07:30 02/18/24 07:30 02/18/24 07:30 02/18/24 07:30 02/18/24 07:30
I&O
02/17/24 02/18/24 02/19/24
06:59 06:59 06:59
Intake Total 960 / 960 480 / 480
Balance 960 / 960 480 / 480
Review of Systems
-
All other systems: Reviewed and negative
Physical Exam
-
General: Well Developed, Well Nourished and No Apparent Distress
HEENT: Normocephalic and Atraumatic
Respiratory: Clear to Auscultation; Negative Wheezes or Rhonchi
Cardiac: Regular Rhythm and S1/S2; Negative Murmur
GI: Soft, Nontender, Nondistended and Normal Bowel Sounds
Musculoskeletal: No Clubbing and No Cyanosis; Negative No Edema (bilateral LE edema 4+)
Neuro: Awake
Psych: Calm
[2024-02-18 11:29] LABS: Glucose - Point of Care 208 mg/dl (70-99)
--- NOTE | 2024-02-18 11:31 | CM ---
Patient seen at bedside with physician. Patient stated that she plans to go home with VN and is now requesting [facility], CM updated Liaison in person and requested follow up. Patient plan is to return home with [facility], CM will call to [facility] and
confirm fax number to send clinicals. CM will continue to follow for discharge planning needs.
Plan; home with VN; pending acceptance and HD at [facility]
[2024-02-18] MEDS: MORPHINE SULFATE 1 MG IV (12:20)
[2024-02-18] MEDS: NOVOLOG FLEXPEN-LOW RESISTANCE 2 UNITS SC (12:22)
--- NOTE | 2024-02-18 12:41 | VNURNOTE ---
Home Health Liaison spoke with patient over the phone to discuss [facility] nurse/therapy, visits, schedule and homebound status. Patient is agreeable and understands that visits at home will be 1-2 x per week to assess and teach medical management.
Patient had [facility] in the past, interested in [facility]. Patient is aware that [facility] will contact them for start of care in 1-2 days after discharge from . Confirmed PCP and HD on Mon, Fris.
[facility] referral completed in [facility].
--- NOTE | 2024-02-18 16:04 | W.SUR.POST ---
Surgical Immediate Post Op
Note
Pre Op Diagnosis: PAD, non-healing right foot wound
Post Op Diagnosis: PAD, non-healing right foot wound
Procedure Performed: RLE angiogram, SECONDARY EDUCATION PROFESSOR behind knee popliteal and origin of SFA with drug coated balloon
Primary Surgeon: Law Lai MD
Secondary Surgeons: N/A
Anesthesia: MAC
Estimated Blood Loss:2 ml
Fluids: See anesthesia flowsheet
Drains/Shunts: N/A
Specimens/Cultures: None
Doppler/Duplex/Angio (Y/N): Y
Complications: None
Operative Findings: Successful angioplasty
--- NOTE | 2024-02-18 16:19 | OR.RPT ---
Operative Report
Operative Report
PROCEDURE DATE: 02/18/2024
Preoperative diagnosis: Nonhealing right lower extremity wound, peripheral arterial disease.
Postoperative diagnosis: Same
Procedure:
1. Duplex assisted left common femoral artery cannulation.
2. Aortogram and pelvic angiogram.
3. Right lower extremity arteriogram with third order vessel catheterization of right peroneal artery via left common femoral artery puncture.
4. Balloon angioplasty of behind the knee popliteal artery with 4 mm Bard Lutonix drug-coated balloon.
5. Balloon angioplasty of proximal/origin of superficial femoral artery with 5 mm Bard Lutonix drug-coated balloon.
6. Left femoral angiogram.
7. Supervision and interpretation.
Surgeon: Ming
Safekeeping Clerk: None
Complications: None
Anesthesia: Local, sedation
Fluoroscopy:
10.6 min
9.2 mGy
14.02 Gy.cm2
Indications for procedure:
Known peripheral arterial disease, status post relatively recent endovascular invention with balloon angioplasty right lower extremity arteries for nonhealing right lower extremity foot wound. Underwent fifth toe amputation. However, we were
reconsulted on this admission secondary to concerning appearing wound with nonhealing/potential foul-smelling/infection. She underwent redebridement by the podiatric service. We were asked to evaluate for peripheral arterial disease. Given
initially concerning appearance of the site and persistent nonhealing, I felt repeated angiography was warranted to ensure adequacy for wound healing, and to ensure no further revascularization required.
Risk/benefits/alternatives of angiography were fully discussed. Patient understood all wish to proceed.
Description of procedure:
Patient was identified, brought to the operating room. Placed on the table in the supine position. After the adequate administration of anesthesia, the patient was prepped and draped in the standard surgical fashion. A standard preoperative
timeout was undertaken and everybody was in agreement with the plan.
The left common femoral artery was accessed with a micropuncture kit under direct duplex ultrasound guidance. A 5 Yoruba sheath was then advanced over a 0.035 inch wire, and a carolina's hook catheter was advanced into the abdominal aorta.
Aortogram and pelvic angiogram was obtained. Findings as follows:
Distal infrarenal aorta and bilateral common and external iliac arteries are patent with no significant stenoses.
Using a floppy angled hydrophilic wire, the right common femoral artery was cannulated and the catheter was advanced. Right lower extremity arteriogram was obtained. Findings as follows:
Common femoral artery: Patent with no significant stenosis.
Profunda femoris artery: Patent with either tortuosity or stenosis noted just beyond the first branch.
Superficial femoral artery:Patent with moderate stenosis just at the origin extending for about 2 to 3 cm. Appear to be flow-limiting as the flow seem to get held up on subtraction imaging and then flushed through. No additional superficial
femoral artery stenosis identified. Distal superficial femoral artery angioplasty site patent with no residual or recurrent stenosis. Eccentric atherosclerotic plaque noted.
Popliteal artery: Patent with moderate at least stenosis in the behind knee popliteal artery segment. Contrast seem to swell through there suggesting flow limitation.
Slightly apparent tibial anatomy with posterior tibial artery branching first off the popliteal artery, and then subsequently the artery bifurcated into the anterior tibial and peroneal artery. The anterior tibial artery appeared generally patent
with no significant stenosis. Peroneal artery patent but somewhat diminutive in size. No obvious high-grade stenosis. Posterior tibial artery again appearing diffusely diseased with very poor filling distally at the level of the plantar arteries,
but this is unchanged compared to prior angiography.
At this point I felt that likely the overall perfusion was relatively stable. However given persistent nonhealing I felt that another attempt at angioplasty of the stenotic segments in the behind knee popliteal artery and proximal SFA would be
warranted to try to give all attempts at enhancing perfusion for wound healing. Therefore, I cannulated the superficial femoral artery and then exchanged for a Storq wire and an up and over 5 Yoruba sheath. Under roadmap assisted guidance, using a
flopping of hydrophilic wire and a CXI catheter I was able to traverse the area of stenoses and cannulate the peroneal artery. I exchanged for a Storq wire again. I used a ProcureSafe Lutonix 4mm x 4cm drug coated balloon to angioplasty the behind the
knee popliteal artery segment with prolonged inflation. Of note the patient was given heparin. Completion angiogram demonstrated improvement in the flow channel. Mild residual stenosis noted. Next I used a Bard Lutonix 5mm x 6cm drug-coated
angioplasty balloon to angioplasty the proximal SFA stenosis with again a prolonged inflation. Completion angiography demonstrated improvement slightly here but there was still moderate residual stenosis. It did not appear flow-limiting however at
this point. Angiography now also demonstrated the slightest bit of opacity in the below-knee popliteal artery segment. I could not tell if there was thrombus or there is some irregularity or spasm secondary to the angioplasty. In order to be
certain I did give 4 mg of tPA slowly through a catheter in the distal superficial femoral artery. I also gave 100 mcg of nitroglycerin. Completion angiogram demonstrated no residual evidence of vasospasm or thrombus. Flow into the runoff was
preserved. At this point I felt I did not wish to stent to the behind knee segment and he did not wish to stent the origin of the SFA (given that I would have to extend stent into the common femoral artery, and therefore if this needs to be treated
would favor surgical treatment). Therefore at this point I was satisfied. I withdrew my sheath to the left external iliac artery. Left femoral angiogram demonstrated good puncture in the left common femoral artery. At this point wires and
catheters were withdrawn. The sheath was withdrawn and manual pressure was applied to the puncture site. Hemostasis was achieved. The patient tolerated procedure well.
[2024-02-18 16:40] LABS: Glucose - Point of Care 180 mg/dl (70-99)
--- NOTE | 2024-02-18 16:46 | W.PN.UPDATE ---
Update Note
Progress Note Update
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 Will see her tomorrow.
--- NOTE | 2024-02-18 17:58 | PTCARENOTE ---
Pt arrived back to unit from IR after angiogram. Site checked with IRAD nurse, both L and R pulses present with doppler. Some drainage on gauze under tegaderm. Pt with no pain. VSS. Will continue vascular checks as ordered. Pt ordering dinner. Call
ambriz is within reach.
[2024-02-18] MEDS: NOVOLOG FLEXPEN-LOW RESISTANCE SC (18:10)
[2024-02-18 18:22] LABS: Glucose - Point of Care 159 mg/dl (70-99)
[2024-02-18] MEDS: LIPITOR 80 MG PO (18:34)
[2024-02-18] MEDS: NOVOLOG FLEXPEN-LOW RESISTANCE 1 UNITS SC (18:36)
[2024-02-18 21:38] LABS: Glucose - Point of Care 242 mg/dl (70-99)
--- NOTE | 2024-02-18 22:05 | W.PN.UPDATE ---
Update Note
Progress Note Update
-asked by nurse to evaluate Left groin incision. Gauze dressing under the Tegaderm is with light blood. I changed the dressing. Incision is clean, dry, intact, no hematoma, slightly tender to touch, good 2+ femoral pulse, no pulsatile mass. Both
lower extremities are warm and pulses are Dopplerable b/l.
--- NOTE | 2024-02-18 22:50 | PTCARENOTE ---
@2220; Pt had 4 pasty brown BM's in beginning of shift.Pt then one watery brown BM later.Pt states ,'this is from my antibiotics.'.
[2024-02-18] MEDS: LANTUS 0.03 UNITS SC (23:16)
[2024-02-19 05:07] LABS: Glucose - Point of Care 248 mg/dl (70-99)
[2024-02-19 06:00] VITALS: BMI 30.2
[2024-02-19] MEDS: ZOSYN 50 IV ×2 (06:12→17:55)
[2024-02-19] MEDS: FLUSH (NSS) 2 FLUSH IV (06:12)
[2024-02-19 06:37] LABS: Hematocrit 28.5 % (37.0-47.0); Mean Corp Hgb Conc. 31.6 g/dL (33.0-37.0); Mean Corpuscular Hgb 25.6 pg (27.0-31.0); Mean Platelet Volume 9.6 fL (7.4-10.4); Platelet Count 291 10^3/uL (130-400); Red Blood Cell Count 3.52 10^6/uL (4.20-5.40); Red Cell Dist. Width 19.3 % (11.5-14.5); White Blood Cell Count 8.8 10^3/uL (4.8-10.8)
[2024-02-19 06:41] LABS: INR 1.14; PT 14.6 Sec (11.4-14.6)
[2024-02-19 06:42] LABS: APTT 30.1 Sec (23.4-35.0)
[2024-02-19 06:48] LABS: Vancomycin Random 14.2 ug/ml
[2024-02-19 07:40] VITALS: BP 156/66
--- NOTE | 2024-02-19 07:42 | PN.DE.MGMTRT ---
Insulin Management
- -
02/19/2024 Diabetes Management Consult Follow up
Patient admitted with c/o R lower extremity redness, swelling and foul odor, also c/o hearing loss in R ear. PMH ESRD (dialysis MWF), CAD (CABG 1981), CHF, HTN, HCL, type 2 diabetes requiring insulin, Guillain [place], blind R eye. Patient was
inpatient 12/27 for 1 month s/p amputation 2 toes R foot. A1C 10.1%, cr 2.7, eGFR 21.10. Prior to admission reports she was taking lantus 2 units @ HS and novolog 3 units AC.
Patient is awake alert and oriented, able to discuss diabetes management.
Went to OR for further debridement of R foot, 02/16 late evening POD 2. Went for angiogram with angioplasty 02/17, POD 1.
Glucose has trended up to 244 @ HS did receive novolog 3 units with dinner. Will continue 3 units Novolog AC with low corrective, lantus increased to 3 units @ hs, fasting glucose this AM 248.
Discussed with patient and nurse. When discharged recommend increased lantus dose, 3 units @ HS and novolog 3 units AC.
Patient has working glucose monitor
Will follow.
Diabetes History
- -
Type of Diabetes: 2 requiring insulin
Pre-Admission Diabetes Regimen
Lab Results
Hemoglobin A1c 10.1 % (4.0-5.6) H 02/16/24 06:26
Insulin Pump Settings
IP Diabetes Regimen
02/18/24 02/18/24 02/18/24
11:27 16:39 18:21
POC Glucose 208 H 180 H 159 H
02/18/24 02/19/24
21:35 05:05
POC Glucose 242 H 248 H
Patient Education
[2024-02-19 07:45] LABS: Blood Urea Nitrogen 30 mg/dl (7-17); Calcium 9.1 mg/dl (8.4-10.2); Carbon Dioxide 23 mmol/L (22-30); Chloride 101 mmol/L (98-107); Estimated Creatinine Clearance 25 ml/min; Glucose 262 mg/dl (70-99); Potassium 3.8 mmol/L (3.5-5.1); Sodium 135 mmol/L (135-145)
--- NOTE | 2024-02-19 08:00 | W.PN.VS ---
Today's Communication / Plan
-
See below.
Assessment/Plan
-
POD 1 Right lower extremity arteriogram with third order vessel catheterization of right peroneal artery via left common femoral artery puncture. Balloon angioplasty of behind the knee popliteal artery with 4 mm Bard Lutonix drug-coated balloon.
Balloon angioplasty of proximal/origin of superficial femoral artery with 5 mm Bard Lutonix drug-coated balloon.
Plan:
-Groin site stable, can remove Tegaderm dressing later this afternoon
-Continue DAPT of ASA 81mg PO daily and plavix 75mg PO daily
-Follow up in our office as scheduled, appointment and ultrasound placed in DC instructions
- We will sign off, call with questions or concerns
Subjective Data
-
Date of Service: February 19, 2024
Patient seen and examined at bedside, reports no complaints. Denies left groin pain or swelling. Tolerating PO diet.
Objective Data
-
Vital Signs
Temp Pulse Resp BP Pulse Ox
98.2 F 84 18 134/82 97
02/19/24 14:56 02/19/24 17:00 02/19/24 14:56 02/19/24 17:00 02/19/24 14:56
Intake and Output
02/18/24 02/19/24 02/20/24
06:59 06:59 06:59
Intake Total 480 / 480 1030 / 1030
Balance 480 / 480 1030 / 1030
Intake:
Oral fluids 480 / 480 930 / 930
IV piggybacks 100 / 100
Other:
Number of approximated SMALL 1
amounts of urine
Number of approximated MODERATE 2
amounts of urine
Number of approximated LARGE 2
amounts of urine
How many times incontinent 5
MODERATE amount urine
Lab Results
02/19/24 06:22
08/16/24 06:22
Calcium 9.1 mg/dl (8.4-10.2) 02/19/24 06:22
Magnesium 2.0 mg/dl (1.6-2.3) 02/19/24 06:22
Total Bilirubin 1.2 mg/dl (0.2-1.3) 02/17/24 06:17
AST 44 U/L (14-36) H 02/17/24 06:17
ALT 48 U/L (0-35) H 02/17/24 06:17
Alkaline Phosphatase 930 U/L (38-126) H 02/17/24 06:17
Total Protein 7.1 g/dl (6.3-8.2) 02/17/24 06:17
Albumin 3.4 g/dl (3.5-5.0) L 02/17/24 06:17
Physical Exam
-
AAOx3
No tachypnea
Abd soft
Left groin dressing site c/d/i, no hematoma or drainage, all compartments soft
R foot warm, wrapped, warm
[2024-02-19 08:51] LABS: Glucose - Point of Care 233 mg/dl (70-99)
[2024-02-19] MEDS: VISBIOME 1 CAP PO (09:21)
[2024-02-19] MEDS: ASPIR LOW (ENTERIC COATED) 81 MG PO (09:21)
[2024-02-19] MEDS: PLAVIX 75 MG PO (09:21)
--- NOTE | 2024-02-19 09:21 | PHA.VAN.FU ---
Addendum entered and electronically signed by Stacy Mace [facility] 02/19/24 11:13:
Agree with certified pharmacy technician note and assessment.
Original Note:
<Rubin Iniguez ([place]) - Last Filed: 02/19/24 11:12>
Vancomycin Assessment / Plan
- Assessment
Hemodialysis Schedule: MWF
WBC's are: WNL
In the past 24 hrs, patient has been: Afebrile
- Assessment - Therapeutic Drug Monitoring
Random Level: 14.2 ~48hrs after previous level of 19; 750mg X1 02/17/24 post-HD
- Dosing Plan
Dosing by Level: Re-dose today
Dosing Comments: Vanco 1G x1; ~13mg/kg
- Monitoring Plan
Random Level: Consider pre-HD level Thursday02/22/24 0600
- Follow Up
Pharmacy will continue to follow.
Vancomycin Follow UP
- -
Patient Age: 48
Patient Sex: Female
Vancomycin Day #: 5
Indication: Diabetic Foot
Requesting Provider: NERI
Height / Weight:
Height 5 ft 3 in
Actual Weight 77.252 kg
Pertinent Past Medical History: ESRD; OM; S/P , 5TH [R] TOE AMPUTATIONS 12/27, OM
- Vital Signs / Lab Results
Temp Pulse Resp BP Pulse Ox
98.0 F 70 17 156/66 97
02/19/24 07:40 02/19/24 07:40 02/19/24 07:40 02/19/24 07:40 02/19/24 07:40
Lab Results - Hematology
02/17/24 02/18/24 02/19/24
06:17 05:52 06:22
WBC 7.3 9.1 8.8
Lab Results - Chemistry
08/14/24 08/15/24 08/16/24
06:17 05:52 06:22
BUN 36 H 26 H 30 H
Creatinine 2.7 H 2.3 H 2.7 H
Estimated Creat Clear 25 29 25
Albumin 3.4 L
Microbiology Results
02/17/24 18:02 Wound Culture - Preliminary
Foot - Right Gram negative bacilli
Enterococcus species
Gram Stain - Preliminary
02/17/24 18:02 Anaerobic Culture - Preliminary
Foot - Right Culture pending. Anaerobic cultures are examined after 3
days incubation. Additional information to follow.
02/15/24 20:15 MRSA Screen - Final
Nose No Methicillin Resistant Staphylococcus aureus isolated.
Therapeutic Drug Monitoring
Random Vancomycin 14.2 ug/ml 02/19/24 06:21
<Stacy Mace - Last Filed: 02/19/24 11:13>
Vancomycin Assessment / Plan
- Follow Up
Pharmacy will continue to follow.
Vancomycin Follow UP
- -
Height / Weight:
Height 5 ft 3 in
Actual Weight 77.252 kg
- Vital Signs / Lab Results
Temp Pulse Resp BP Pulse Ox
98.2 F 78 18 148/69 97
02/19/24 10:58 02/19/24 10:58 02/19/24 10:58 02/19/24 10:58 02/19/24 10:58
Lab Results - Hematology
02/17/24 02/18/24 02/19/24
06:17 05:52 06:22
WBC 7.3 9.1 8.8
Lab Results - Chemistry
02/17/24 02/18/24 02/19/24
06:17 05:52 06:22
BUN 36 H 26 H 30 H
Creatinine 2.7 H 2.3 H 2.7 H
Estimated Creat Clear 25 29 25
Albumin 3.4 L
Microbiology Results
02/17/24 18:02 Wound Culture - Preliminary
Foot - Right Gram negative bacilli
Enterococcus species
Gram Stain - Preliminary
02/17/24 18:02 Anaerobic Culture - Preliminary
Foot - Right Culture pending. Anaerobic cultures are examined after 3
days incubation. Additional information to follow.
02/15/24 20:15 MRSA Screen - Final
Nose No Methicillin Resistant Staphylococcus aureus isolated.
Therapeutic Drug Monitoring
Random Vancomycin 14.2 ug/ml 02/19/24 06:21
[2024-02-19] MEDS: SANTYL OINTMENT 1 APPLIC TOPICAL (09:22)
[2024-02-19] MEDS: NOVOLOG FLEXPEN-LOW RESISTANCE 2 UNITS SC (09:33)
[2024-02-19] MEDS: NOVOLOG FLEXPEN 3 UNITS SC ×2 (09:33→17:54)
--- NOTE | 2024-02-19 09:36 | CM ---
Addendum entered by Amelia Narayan 02/19/24 15:20:
Per ID plan is now for patient to remain at hospital and await cultures for IV antibiotics. CM will continue to follow for discharge planning needs.
Addendum entered by Amelia Narayan 02/19/24 14:28:
Patient plan is for discharge home and she is asking for [facility] to follow not [facility]. CM updated liaison for [facility]. Awaiting update from ID consult per physician. CM will continue to follow for discharge planning needs.
Original Note:
Please fax HD flow sheets and transition of care information to [facility] [phone]. CM spoke with nurse at HD center and she is aware of pending discharge. CM will talk to patient to confirm VN; [facility] vs [facility]. CM will continue to
follow for discharge planning needs.
[2024-02-19 10:58] VITALS: BP 148/69
--- NOTE | 2024-02-19 12:32 | W.PN.POD ---
Today's Communication
Today's Communication
Patient stable per podaitry to D/C home, she will f/u in my office in 1 wk after discharge
Assessment / Plan
-
Rt foot S/p soft tissue debridement POD #2
Diabetic small vessel disease
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
H/o Rt foot debridement # 2 on 12/14/2023
H/O Rt foot debridement #3 on 12/24/2023 debridement of all necrotic tissue and Rt 4th and 5th distal metatarsals resection .
CKD - on HD now
Diabetic small vessel disease - Patient is S/P repeat Angiogram 02/18/2024 with intravascular lithotripsy of post tibial artery and SFA, noted t have severe small vessel disease in Post tibial in the plantar fo distribution
PAD
Diabetic neuropathy.
Plan : Cont IV abx
Requested ID consult for recommendations on abx .
Case discussed with vascular surgery, nothing more can be offered at this time, need aggressive wound care . At risk of limb loss, patient aware of her situation, no guarantees given to save the limb
Applied Santyl and dry gauze dressings to Rt foot , applied compressive dressings to Rt foot .
Wt bearing to Rt heel with walker and surgical shoe only when ambulation, please remove the surgical shoe while she is in bed
VN for dressing cahges
Daily dressings to Rt foot with SAntyl, cover with saline wet gauze, dry gauze and kerlix . Emir compression
Subjective
Chief Complaint
Rt diabetic foot infection
Subjective
Patient seen at bedside, in no acute distress, awake, alert, oriented, no SOB or chest pain, she denies any new pedal complaints . Denies any Rt foot pain, no calf pain no fever, chills.
Objective
Temp Pulse Resp BP Pulse Ox
98.2 F 78 18 148/69 97
02/19/24 10:58 02/19/24 10:58 02/19/24 10:58 02/19/24 10:58 02/19/24 10:58
02/19/24 06:22
02/19/24 06:22
Vital Signs and Lab results were reviewed.
Rt foot palpable Dp and dopplerable PT pedal pulses
Rt foot decreased edema .
Rt foot surgical debrided site with no bleeding, no drainage/no purulence no new necrosis, no foul odor noted. No exposed bone
no crepitus felt, no signs of any abscess felt, no red streaking up the leg
[2024-02-19] MEDS: RETACRIT 8000 UNITS IV (13:56)
--- NOTE | 2024-02-19 14:32 | W.PN.NEPH.HD ---
Assessment
-
pt seen during HD
vitals are stable
pt not allowing to have large UF, SBP 170
some edema in LEs
reviewed imp of FR upon d/c
CVC functions well
Progress Note - Hemodialysis
-
Date of Service: February 19, 2024
Duration: 15 minutes and 3 hours
Potassium Bath: 2
Calcium Bath: 2.5
Opti-Dialyzer: 160
Ultrafiltration: Other (1.5-2kg)
Blood Flow: 400
Dialysate Flow: 600
Heparin: no
EPO: 8000
[2024-02-19 14:53] LABS: GGTP 976 U/L (12-43)
--- NOTE | 2024-02-19 14:59 | W.PN.HOSP.TC ---
Today's Communication/Plan
-
await ID for d/c abx
Assessment / Plan
Assessment / Plan
pt is a 48 year old female
Open wound/diabetic foot infection of right lateral foot with suspected osteomyelitis (History of right diabetic foot infection status post fifth toe amputation on 12/06 and revision fourth toe amputation on 12/13)--cont vanco/zosyn--apprec podiatry
s/p OR with no deep tissue purulence--cultures obtained, consult ID at podiatry request
Peripheral arterial disease status post diagnostic arteriogram, intravascular lithotripsy of the posterior tibial artery and proximal SFA, balloon angioplasty and nitroglycerin injection of posterior tibial artery on 12/21/23--apprec vascular and
plan for Angiogram --Continue aspirin and Plavix, statin
Chronic transaminitis--Stable
Type 1 diabetes (pt insists she has been told it is type 2)--nevertheless, it is not controlled as HGB A1C is 10--Continue Lantus 2 units--Insulin sliding scale--apprec DM DOCK [facility]
ESRD on hemodialysis Thursday and Thursday--likely needs MWF for volume control--apprec renal
Chronic HFpEF
Moderate aortic stenosis/aortic regurgitation/Mild to moderate mitral stenosis
Paroxysmal SVT
Iron deficiency anemia--Hemoglobin stable at 9.2
History of CVA
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
Hearing loss (per pt)--apprec ENT--due to clenching jaw
Full code
DVT prophylaxis�SCDs
Anticipated Discharge: Today
Subjective/Interval History
-
Date of Service: February 19, 2024
pt wants to go home
Objective Data
-
Labs:
Laboratory Results
02/19/24 02/19/24
06:21 06:22
WBC 8.8
Hgb 9.0 L
Hct 28.5 L
Plt Count 291
PT 14.6
INR 1.14
APTT 30.1
Sodium 135
Potassium 3.8
Chloride 101
Carbon Dioxide 23
BUN 30 H
Creatinine 2.7 H
Glucose 262 H
Calcium 9.1
Vital Signs:
max temp for 24 hours
02/18/24
23:25
Temp 98.3 F
Vital Signs
Temp Pulse Resp BP Pulse Ox
98.2 F 89 18 148/69 97
02/19/24 14:56 02/19/24 14:56 02/19/24 14:56 02/19/24 10:58 02/19/24 14:56
I&O
02/18/24 02/19/24 02/20/24
06:59 06:59 06:59
Intake Total 480 / 480 1030 / 1030
Balance 480 / 480 1030 / 1030
Review of Systems
-
All other systems: Reviewed and negative
Abdomen/GI: Reports Diarrhea
Physical Exam
-
General: Well Developed, Well Nourished and No Apparent Distress
HEENT: Normocephalic and Atraumatic
Respiratory: Clear to Auscultation; Negative Wheezes or Rhonchi
Cardiac: Regular Rhythm and S1/S2; Negative Murmur
GI: Soft, Nontender, Nondistended and Normal Bowel Sounds
Musculoskeletal: No Clubbing and No Cyanosis; Negative No Edema (bilateral LE edema)
Neuro: Awake
--- NOTE | 2024-02-19 15:12 | CON.ID ---
Addendum entered and electronically signed by Alia Grayson MD 02/19/24 16:17:
I personally performed a history and physical exam of the patient and discussed management with the resident. I reviewed the resident's note and agree with the documented findings and plan of care HPI/CC with the following additions/corrections:
cc:
hpi:
Ms Kent is a 48 year old female with history of CVA, congenital heart disease (unknown type)/CHF, PAD, right foot 4th nd th distal metatarsal resection within the last two months due to gangrene, CKD on HD, dm2, GBS, who presented here
from podiatry clinic on 02/14 for poorly healing surgical site, right foot redness, swelling, malodor, tenderness and pain for 1 week. 12/23 MRI with osteomyelitis firhgt 5th metNo fevers or chills. + fatigue.
Since arrival here she has been afebrile, bp stable to hypertensive, wbc initially 8.7 and now 8.8, hgb 9.0, plt 291, no left shift on arrival, cr 2.7, k 2.8, glucoses 100s-200s, a1c 10
Taken to the OR 02/16 for further debridement of necrotic tissue, no deep purulence noted, and intraoperative cultures obtained. 02/17 went for RLE angiogram, HYDRO ELECTRIC STATION OPERATOR behind knee popliteal and origin of SFA with drug coated balloon
Started on vancomycin and zosyn
Past Medical History
Past Medical History: Reports Other (right diabetic foot infection status post fifth toe amputation, peripheral arterial disease, ESRD on hemodialysis Thursday and Thursday, diastolic CHF, presumed type I diabetes, iron deficiency anemia, CVA,
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
Past Surgical History: Reports Other
Social History
Tobacco: Non-smoker
Alcohol: None
Drug: None
Family History
Family History: Not pertinent
Allergies
Allergy/AdvReac Type Severity Reaction Status Date / Time
latex Allergy Intermediate Hives Verified 02/15/24 15:28
Home Medications
omega 3-wed-onu-fish oil 900 mg-1,400 mg capsule,delayed release 1 cap PO DAILY PRN Supplement 04/06/23
aspirin 81 mg tablet,delayed release 81 mg PO DAILY Blood Clot Prevention/Tx #30 tabs 05/04/23
atorvastatin 80 mg tablet 80 mg PO QPM #30 tabs 05/04/23
clopidogrel 75 mg tablet 75 mg PO DAILY #30 tabs 01/05/24
insulin aspart U-100 100 unit/mL (3 mL) subcutaneous pen 3 unit (0.03 mL) SC AC #15 mL 01/05/24
metoprolol succinate 25 mg tablet,extended release 24 hr 25 mg PO HS #30 tabs 01/05/24
Lactobac no.2-Bifidobac no.1-S. thermo 112.5 billion cell capsule (Visbiome) 1 cap PO DAILY 02/15/24
collagenase clostridium histo. 250 unit/gram topical ointment (Santyl) 1 applic topical DAILY 02/15/24
ergocalciferol (vitamin D2) 1,250 mcg (50,000 unit) capsule 1,250 mcg PO HANSON 02/15/24
insulin glargine 100 unit/mL (3 mL) subcutaneous pen (Lantus Solostar U-100 Insulin) 2 unit SC HS 02/15/24
Review of Systems
-
A 12 point ROS was completed and negative except as noted: Yes
Constitutional: Reports No Symptoms
EENT: Reports No Symptoms
Respiratory: Reports No Symptoms
Cardiac: Reports No Symptoms
Abdomen/GI: Reports No Symptoms
: Reports No Symptoms
Musculoskeletal: Reports No Symptoms
Skin: Reports See HPI
Neurological: Reports No Symptoms
Endocrine: Reports No Symptoms
Hematologic/Lymphatic: Reports No Symptoms
Psych: Reports No Symptoms
Vital Signs
Temp Pulse Resp BP Pulse Ox
98.2 F 95 18 149/72 97
02/15/24 15:29 02/15/24 15:29 02/15/24 15:29 02/15/24 15:29 02/15/24 15:29
Physical Exam
General: no distress
Respiratory: Clear to asculatation bilaterally
Cardiac: S1/S2 and Regular Rhythm; No Murmur or Rub
GI: Soft, Non Tender, Non Distended and Normal Bowel Sounds
Musculoskeletal: No Clubbing, No Cyanosis and No Edema
Skin: right foot surgical site with redness, swelling, tenderness, drainage
A&P
Diabetic Foot Infection
Surgical site Infection
Suspected osteomyelitis right 5th metatarsal
H/o right 4t hand 5th digits amputation
H/o right SFA stenting
PAD
DM2 - uncontrolled
- 02/16 wound culture: few GNR x2, enterococcus; anaerobic culture pending
- MRSA screen negative
- pathology was not sent
- recommend tightening glucose control
- continue vancomycin and zosyn, if enterococcus is amp sensitive then stop vancomycin
- final antibiotic selection pending ID of the isolates, likely plan for 6 week course
Original Note:
Consultation
-
Date/Time Consultation Requested: 02/19/2024 09:38
Requesting Provider: Christa Lynn
Performing Provider: Alia Grayson
Reason for Consultation: Diabetic foot infection
Chief Complaint / Past History
Chief Complaint
Diabetic foot infection
History of Present Illness
48 yr old female with hx of IDDM, diabetic neuropathy, R eye blindness, ESRD on HD, PAD, R. diabetic foot infection s/p 5th transmetatarsal/4th phalanx amputation (December 2023), who presented to the ED on 02/14 with erythema, swelling, malodor, and
drainage. No fever/chills, or recent abx use. She sees pastoral ministries professor Dr. Casey, who also conducted a wound debridement of same foot about one week ago. She was sent to the ED after medical staff expressed concerns about her foot wound during
dialysis on Thursday.
Recent admission in December for diabetic foot wound with evidence of osteomyelitis per MRI, necessitating aforementioned amputation.
On arrival to the ED, vitals were stable, normal leukocytes, Hgb 9.2, platelets 321, BUN 25, Cr 1.6, AST 62, ALT 65, Alk phos 1039.
Foot Xray 02/14: Abnormal lucency and cortical irregularity of the remaining right fifth metatarsal, suspicious for fifth metatarsal osteomyelitis.
During this stay, she has had R posterior tibial, popliteal, and SFA balloon angioplasty.
Infectious disease was consulted to assist with antibiotic management.
Past History
Past Medical History: Arrhythmias (paroxysmal SVT), CVA, IDDM, PAD, Valvular Disease and Other (diabetic neuropathy, r eye blindness, [place] with chronic LE weakness, R diabetic foot infection, iron deficiency anemia)
Past Surgical History: Orthopedic (4th phalanx amputation, 5th transmetatarsal amputation) and Other (multiple angioplasties)
Allergy History:
latex Allergy (Verified 02/15/24 20:14)
Hives
Medications Reviewed: Yes
Social History
Tobacco: Non-Smoker
Family History
Family History: Not Pertinent
Review of Systems
Review of Systems
Musculoskeletal: Joint Swelling
Vital Signs
Temp Pulse Resp BP Pulse Ox
98.2 F 89 18 148/69 97
02/19/24 14:56 02/19/24 14:56 02/19/24 14:56 02/19/24 10:58 02/19/24 14:56
Physical Exam
Physical Exam
Constitutional: No Acute Distress, Comfortable and Other (Please refer to Dr. Daniel's addendum for other PE findings)
Musculoskeletal: Other (Right foot with dressings in place)
Skin: Warm and Dry
Neurological: Awake, Alert and Other (Answers questions appropriately)
Psychological: Calm
Lines: HD Cath (patent, intact)
Lab / Diagnostic Study Results
02/19/24 06:22
02/19/24 06:22
Abs Immat Gran (auto) 0.1 10^3/uL (0-0.05) H 02/16/24 06:26
Absolute Neuts (auto) 6.5 10^3/uL (1.4-6.5) 02/16/24 06:26
Absolute Lymphs (auto) 1.9 10^3/uL (1.2-3.4) 02/16/24 06:26
Absolute Monos (auto) 0.7 10^3/uL (0.1-0.6) H 02/16/24 06:26
Absolute Basos (auto) 0.1 10^3/uL (0-0.2) 02/16/24 06:26
Immature Gran % 0.5 % (0-0.5) 02/16/24 06:26
Neutrophils % 69.4 % (42.2-75.2) 02/16/24 06:26
Lymphocytes % 20.0 % (20.5-51.1) L 02/16/24 06:26
Monocytes % 7.6 % (1.7-9.3) 02/16/24 06:26
Eosinophils % 1.7 % (0-6) 02/16/24 06:26
Basophils % 0.8 % (0-2) 02/16/24 06:26
PT 14.6 Sec (11.4-14.6) 02/19/24 06:21
INR 1.14 02/19/24 06:21
Microbiology Results
Micro:
02/17/24 18:02 Wound Culture - Preliminary
Foot - Right Gram negative bacilli
Enterococcus species
Gram Stain - Preliminary
02/17/24 18:02 Anaerobic Culture - Preliminary
Foot - Right Culture pending. Anaerobic cultures are examined after 3
days incubation. Additional information to follow.
02/15/24 20:15 MRSA Screen - Final
Nose No Methicillin Resistant Staphylococcus aureus isolated.
Assessment / Plan
Recurrent R Diabetic foot infection with Osteomyelitis
Functionally immunocompromized
ESRD on HD
IDDM, poorly controlled - HbA1c 10.1
Peripheral artery disease
Elevated alk pos
- R foot x-ray 02/14: Abnormal lucency and cortical irregularity of the remaining right fifth metatarsal, suspicious for fifth metatarsal osteomyelitis.
- MRSA screen negative
- Wound cx: Few gram negative bacilli x2, moderate enterococcus species
- Anerobic Cx pending
- GGT ordered
- Currently on Zosyn and Vancomycin: Continue pending finalized cultures. Will need 6 week course given osteomyelitis
- Patient prefers to be discharged soon, but is okay with waiting a few more days for cultures to be finalized to optimize abx coverage. Her preference is to be discharge on Oral abx regimen.
[2024-02-19 15:30] VITALS: BP 156/76
[2024-02-19] MEDS: HEPARIN 3900 UNITS INTRACATH (15:44)
[2024-02-19 16:03] VITALS: BP 156/76
[2024-02-19 16:47] LABS: Glucose - Point of Care 158 mg/dl (70-99)
[2024-02-19 17:00] VITALS: BP 134/82
[2024-02-19] MEDS: NOVOLOG FLEXPEN-LOW RESISTANCE SC (17:51)
[2024-02-19] MEDS: NOVOLOG FLEXPEN SC (17:51)
[2024-02-19] MEDS: NOVOLOG FLEXPEN-LOW RESISTANCE 1 UNITS SC (17:55)
[2024-02-19] MEDS: LIPITOR 80 MG PO (17:55)
[2024-02-19] MEDS: MORPHINE SULFATE 1 MG IV (19:54)
[2024-02-19] MEDS: IMODIUM 2 MG PO (19:59)
[2024-02-19 21:22] LABS: Glucose - Point of Care 204 mg/dl (70-99)
[2024-02-19] MEDS: LANTUS 0.03 UNITS SC (21:26)
[2024-02-19 23:00] VITALS: BP 121/59
[2024-02-20] MEDS: ZOSYN 50 IV ×2 (05:33→17:37)
[2024-02-20 05:43] VITALS: BMI 29.6
[2024-02-20 06:00] VITALS: BMI 29.6
--- NOTE | 2024-02-20 07:48 | PHA.VAN.FU ---
Vancomycin Assessment / Plan
- Assessment
Hemodialysis Schedule: MWF
In the past 24 hrs, patient has been: Afebrile
Concomitant Antimicrobials: Piperacillin-tazobactam
- Dosing Plan
Continue: Dose by level post HD
- Monitoring Plan
Random Level: 02/21 in AM
- Follow Up
Pharmacy will continue to follow.
Vancomycin Follow UP
- -
Patient Age: 48
Patient Sex: Female
Vancomycin Day #: 6
Indication: Diabetic Foot
Requesting Provider: NERI
Height / Weight:
Height 5 ft 3 in
Actual Weight 75.705 kg
Pertinent Past Medical History: ESRD; OM; S/P 4TH, 5TH [R] TOE AMPUTATIONS 12/27, OM
- Vital Signs / Lab Results
Temp Pulse Resp BP Pulse Ox
98.5 F 84 18 121/59 96
02/19/24 23:00 02/19/24 23:00 02/19/24 23:00 02/19/24 23:00 02/19/24 23:00
Lab Results - Hematology
02/18/24 02/19/24
05:52 06:22
WBC 9.1 8.8
Lab Results - Chemistry
02/18/24 02/19/24
05:52 06:22
BUN 26 H 30 H
Creatinine 2.3 H 2.7 H
Estimated Creat Clear 29 25
Microbiology Results
02/17/24 18:02 Wound Culture - Preliminary
Foot - Right Gram negative bacilli
Enterococcus species
Gram Stain - Preliminary
02/17/24 18:02 Anaerobic Culture - Preliminary
Foot - Right Culture pending. Anaerobic cultures are examined after 3
days incubation. Additional information to follow.
Therapeutic Drug Monitoring
Random Vancomycin 14.2 ug/ml 02/19/24 06:21
[2024-02-20 08:00] VITALS: BP 145/69
[2024-02-20 09:08] LABS: Glucose - Point of Care 234 mg/dl (70-99)
[2024-02-20] MEDS: NOVOLOG FLEXPEN-LOW RESISTANCE 3 UNITS SC ×2 (09:30→12:50)
[2024-02-20] MEDS: NOVOLOG FLEXPEN 3 UNITS SC ×3 (09:30→17:35)
[2024-02-20] MEDS: VISBIOME 1 CAP PO (09:31)
[2024-02-20] MEDS: PLAVIX 75 MG PO (09:31)
[2024-02-20] MEDS: ASPIR LOW (ENTERIC COATED) 81 MG PO (09:31)
--- NOTE | 2024-02-20 09:55 | W.PN.HOSP.TC ---
Today's Communication/Plan
-
await ID input for ABX for d/c
Assessment / Plan
Assessment / Plan
pt is a 48 year old female
Open wound/diabetic foot infection of right lateral foot with suspected osteomyelitis (History of right diabetic foot infection status post fifth toe amputation on 12/06 and revision fourth toe amputation on 12/13)--cont vanco/zosyn--apprec podiatry
s/p OR 02/16 with no deep tissue purulence--cultures obtained, apprec ID at podiatry request
Peripheral arterial disease status post diagnostic arteriogram, intravascular lithotripsy of the posterior tibial artery and proximal SFA, balloon angioplasty and nitroglycerin injection of posterior tibial artery on 12/21/23--apprec vascular s/p
Angiogram 02/17 with successful angioplasty --Continue aspirin and Plavix, statin
Chronic transaminitis--Stable
Type 1 diabetes (pt insists she has been told it is type 2)--nevertheless, it is not controlled as HGB A1C is 10--Continue Lantus, novolog--Insulin sliding scale--apprec DM CABLE OPERATOR
ESRD on hemodialysis Thursday and Thursday--likely needs MWF for volume control--apprec renal
Chronic HFpEF
Moderate aortic stenosis/aortic regurgitation/Mild to moderate mitral stenosis
Paroxysmal SVT
Iron deficiency anemia--Hemoglobin stable at 9.2
History of CVA
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
Hearing loss (per pt)--apprec ENT--due to clenching jaw
Full code
DVT prophylaxis�SCDs
Anticipated Discharge: 24 - 48 hours
Subjective/Interval History
-
Date of Service: February 20, 2024
pt worried about losing her foot/leg--did explain that we are trying to save it as best we can
Objective Data
-
Vital Signs:
max temp for 24 hours
02/19/24
23:00
Temp 98.5 F
Vital Signs
Temp Pulse Resp BP Pulse Ox
98.8 F 79 18 145/69 96
02/20/24 08:00 02/20/24 08:00 02/20/24 08:00 02/20/24 08:00 02/20/24 08:00
I&O
02/19/24 02/20/24 02/21/24
06:59 06:59 06:59
Intake Total 1030 / 1030 430 / 430
Balance 1030 / 1030 430 / 430
Review of Systems
-
All other systems: Reviewed and negative
Physical Exam
-
General: Well Developed, Well Nourished and No Apparent Distress
HEENT: Normocephalic and Atraumatic
Respiratory: Clear to Auscultation; Negative Wheezes or Rhonchi
Cardiac: Regular Rhythm, S1/S2 and Murmur
GI: Soft, Nontender, Nondistended and Normal Bowel Sounds
Musculoskeletal: No Clubbing and No Cyanosis; Negative No Edema (bilateral LE edema)
Neuro: Awake and Alert
[2024-02-20 11:35] LABS: Glucose - Point of Care 292 mg/dl (70-99)
[2024-02-20 15:00] VITALS: BP 173/85
--- NOTE | 2024-02-20 15:42 | W.PN.UPDATE ---
Update Note
Progress Note Update
Culture reviewed
sensi on the MSSA still pending - anticipated tomorrow
asked lab to release cipro sensi on the e faecalis
will reassess tomorrow
AW
[2024-02-20 17:09] LABS: Glucose - Point of Care 326 mg/dl (70-99)
[2024-02-20] MEDS: SANTYL OINTMENT 1 APPLIC TOPICAL (17:35)
[2024-02-20] MEDS: LIPITOR 80 MG PO ×2 (17:35)
[2024-02-20] MEDS: NOVOLOG FLEXPEN-LOW RESISTANCE 4 UNITS SC (17:35)
[2024-02-20] MEDS: IMODIUM 2 MG PO (17:39)
[2024-02-20 18:31] VITALS: BP 117/56
[2024-02-20] MEDS: FLUSH (NSS) 2 FLUSH IV (19:25)
[2024-02-20] MEDS: MORPHINE SULFATE 1 MG IV (19:25)
[2024-02-20 21:42] LABS: Glucose - Point of Care 254 mg/dl (70-99)
[2024-02-20] MEDS: LANTUS 0.03 UNITS SC (22:03)
--- NOTE | 2024-02-21 00:59 | PTCARENOTE ---
Patient refused HS VS. Explained need for monitoring but patient continued to refuse.
[2024-02-21 01:00] VITALS: BP 160/77
[2024-02-21] MEDS: ZOSYN 50 IV (05:37)
[2024-02-21] MEDS: IMODIUM PO (05:37)
[2024-02-21] MEDS: FLUSH (NSS) 2 FLUSH IV (05:38)
[2024-02-21 07:45] VITALS: BP 160/76
--- NOTE | 2024-02-21 08:00 | PHA.VAN.FU ---
Vancomycin Assessment / Plan
- Assessment
Hemodialysis Schedule: MWF
In the past 24 hrs, patient has been: Afebrile
Concomitant Antimicrobials: Piperacillin-tazobactam
- Dosing Plan
Continue: Dosing by level post HD
- Monitoring Plan
Random Level: 02/21 in AM
- Follow Up
Pharmacy will continue to follow.
Vancomycin Follow UP
- -
Patient Age: 48
Patient Sex: Female
Vancomycin Day #: 7
Indication: Diabetic Foot
Requesting Provider: NERI
Height / Weight:
Height 5 ft 3 in
Actual Weight 76.912 kg
Pertinent Past Medical History: ESRD; OM; S/P 4TH, 5TH [R] TOE AMPUTATIONS 12/27, OM
- Vital Signs / Lab Results
Temp Pulse Resp BP Pulse Ox
98.4 F 83 19 160/76 97
02/21/24 07:45 02/21/24 07:45 02/21/24 07:45 02/21/24 07:45 02/21/24 07:45
Lab Results - Hematology
02/19/24
06:22
WBC 8.8
Lab Results - Chemistry
02/19/24
06:22
BUN 30 H
Creatinine 2.7 H
Estimated Creat Clear 25
Microbiology Results
02/17/24 18:02 Wound Culture - Preliminary
Foot - Right Klebsiella aerogenes
Enterobacter cloacae
Enterococcus faecalis
S aureus-Methicillin Sensitive
Gram Stain - Preliminary
02/17/24 18:02 Anaerobic Culture - Preliminary
Foot - Right Culture pending. Anaerobic cultures are examined after 3
days incubation. Additional information to follow.
Therapeutic Drug Monitoring
Random Vancomycin 14.2 ug/ml 02/19/24 06:21
[2024-02-21 09:05] LABS: Glucose - Point of Care 201 mg/dl (70-99)
[2024-02-21] MEDS: PLAVIX 75 MG PO (09:55)
[2024-02-21] MEDS: SANTYL OINTMENT 1 APPLIC TOPICAL (09:55)
[2024-02-21] MEDS: VISBIOME 1 CAP PO (09:55)
[2024-02-21] MEDS: NOVOLOG FLEXPEN 3 UNITS SC ×2 (09:55→12:30)
[2024-02-21] MEDS: ASPIR LOW (ENTERIC COATED) 81 MG PO (09:55)
[2024-02-21] MEDS: NOVOLOG FLEXPEN-LOW RESISTANCE 2 UNITS SC (09:56)
--- NOTE | 2024-02-21 10:45 | W.PN.HOSP.TC ---
Today's Communication/Plan
-
cultures and sensitivities back--await ID
Assessment / Plan
Assessment / Plan
pt is a 48 year old female
Open wound/diabetic foot infection of right lateral foot with suspected osteomyelitis (History of right diabetic foot infection status post fifth toe amputation on 12/06 and revision fourth toe amputation on 12/13)--cont vanco/zosyn--apprec podiatry
s/p OR 02/16 with no deep tissue purulence--cultures obtained with polymicrobial organisms, apprec ID
Peripheral arterial disease status post diagnostic arteriogram, intravascular lithotripsy of the posterior tibial artery and proximal SFA, balloon angioplasty and nitroglycerin injection of posterior tibial artery on 12/21/23--apprec vascular s/p
Angiogram 02/17 with successful angioplasty --Continue aspirin and Plavix, statin
Chronic transaminitis--Stable
Type 1 diabetes (pt insists she has been told it is type 2)--nevertheless, it is not controlled as HGB A1C is 10--Continue Lantus, novolog--Insulin sliding scale--apprec DM CORRECTIVE AND MANUAL ARTS THERAPIST
ESRD on hemodialysis Thursday and Thursday--likely needs MWF for volume control--apprec renal
Chronic HFpEF
Moderate aortic stenosis/aortic regurgitation/Mild to moderate mitral stenosis
Paroxysmal SVT
Iron deficiency anemia--Hemoglobin stable at 9.2
History of CVA
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
Hearing loss (per pt)--apprec ENT--due to clenching jaw
Full code
DVT prophylaxis�SCDs
Anticipated Discharge: 24 - 48 hours
Subjective/Interval History
-
Date of Service: February 21, 2024
pt had nosebleed this AM
waiting to hear final abx choices from ID
Objective Data
-
Vital Signs:
max temp for 24 hours
02/21/24
07:45
Temp 98.4 F
Vital Signs
Temp Pulse Resp BP Pulse Ox
98.4 F 83 19 160/76 97
02/21/24 07:45 02/21/24 07:45 02/21/24 07:45 02/21/24 07:45 02/21/24 07:45
I&O
02/20/24 02/21/24 02/22/24
06:59 06:59 06:59
Intake Total 430 / 430 930 / 930
Balance 430 / 430 930 / 930
Review of Systems
-
All other systems: Reviewed and negative
EENT: Reports Bloody Nose
Physical Exam
-
General: Well Developed, Well Nourished and No Apparent Distress
HEENT: Normocephalic, Atraumatic and Other (nosebleed)
Respiratory: Clear to Auscultation; Negative Wheezes or Rhonchi
Cardiac: Regular Rhythm and S1/S2; Negative Murmur
GI: Soft, Nontender, Nondistended and Normal Bowel Sounds
Musculoskeletal: No Clubbing, No Cyanosis and Other (bilateral LE edema)
Skin: Warm and Dry
--- NOTE | 2024-02-21 10:45 | W.PN.ID1 ---
Date of Service
Date of Service: February 21, 2024
Today's Communication
- plan cipro 500 mg PO qPM and metronidazole 500 mg PO BID x6 weeks 02/14-03/27
- adjust dose of atorvastatin to 40 mg PO qday while on cipro which can increase the effective dose of atorvastatin
Assessment / Plan
Recurrent R Diabetic foot infection with Osteomyelitis
Functionally immunocompromised
ESRD on HD
IDDM, poorly controlled - HbA1c 10.1
Peripheral artery disease
Elevated alk pos
- R foot x-ray 02/14: Abnormal lucency and cortical irregularity of the remaining right fifth metatarsal, suspicious for fifth metatarsal osteomyelitis.
- MRSA screen negative
- Wound cx: K aerogens, E cloacae, E faecalis, MSSA
- Anerobic Cx pending almost certainly positive
- plan cipro 500 mg PO qPM and metronidazole 500 mg PO BID x6 weeks 02/14-03/27
- adjust dose of atorvastatin to 40 mg PO qday while on cipro which can increase the effective dose of atorvastatin
Markedly elevated alk pohs
- ggt is elevated (can be falsely elevated in ersd)
- recommend outpatient liver US and follow up with GI for evaluation
Chief Complaint
-: Other
Subjective / Review of Systems
afebrile
bp stable
pasty stools no you diarrhea
Vital Signs / Physical Exam
Vital Signs
Vital Signs
Temp Pulse Resp BP Pulse Ox
98.4 F 83 19 160/76 97
02/21/24 07:45 02/21/24 07:45 02/21/24 07:45 02/21/24 07:45 02/21/24 07:45
Physical Exam
Constitutional: No Acute Distress and Chronically Ill
Cardiovascular: Regular Rate and S1/S2; Negative Murmur or Rub
Pulmonary: Clear and Symmetric; Negative Wheezes or Rales
Gastrointestinal: Soft, Non Tender, Non Distended and Normal Bowel Sounds
Skin: Warm and Dry; Negative Rash or Jaundice
Wound: Other (moderate slough, no probe to bone, some granulation tissue, no purulence or odor or surrounding redness)
Objective Data
Lab Data
Lab Results
02/19/24 06:22
02/19/24 06:22
PT 14.6 Sec (11.4-14.6) 02/19/24 06:21
INR 1.14 02/19/24 06:21
APTT 30.1 Sec (23.4-35.0) 02/19/24 06:21
Estimated Creat Clear 25 ml/min 02/19/24 06:22
Total Bilirubin 1.2 mg/dl (0.2-1.3) 02/17/24 06:17
GGT 976 U/L (12-43) H 02/19/24 06:22
AST 44 U/L (14-36) H 02/17/24 06:17
ALT 48 U/L (0-35) H 02/17/24 06:17
Alkaline Phosphatase 930 U/L (38-126) H 02/17/24 06:17
Most recent labs reviewed.
Micro Results:
02/17/24 18:02 Anaerobic Culture - Preliminary
Foot - Right Culture pending. Anaerobic cultures are examined after 3
days incubation. Additional information to follow.
02/17/24 18:02 Wound Culture - Preliminary
Foot - Right Klebsiella aerogenes
Enterobacter cloacae
Enterococcus faecalis
S aureus-Methicillin Sensitive
Gram Stain - Preliminary
02/15/24 20:15 MRSA Screen - Final
Nose No Methicillin Resistant Staphylococcus aureus isolated.
Care Review
Plan reviewed with: Physician (Dr Lynn - abjulianna and dispo)
[2024-02-21 11:43] LABS: Glucose - Point of Care 294 mg/dl (70-99)
[2024-02-21] MEDS: DRISDOL (VITAMIN D2) 50000 UNITS PO (12:30)
[2024-02-21] MEDS: NOVOLOG FLEXPEN-LOW RESISTANCE 3 UNITS SC (12:30)
[2024-02-21] MEDS: FLAGYL 500 MG PO (12:30)
[2024-02-21] MEDS: CIPRO 500 MG PO (12:33)
[2024-02-21] MEDS: AFRIN NASAL SPRAY 1 SPRAYS NASAL (12:33)
--- NOTE | 2024-02-21 12:34 | CM ---
Addendum entered by Iraida Garvin 02/21/24 15:43:
HD Flowsheets/discharge faxed to [facility]
Original Note:
Pt for discharge today
Pt reports she has a ride home
[facility] to follow
Plan - home with [facility]
--- NOTE | 2024-02-21 14:13 | W.DCSUMMARY ---
Discharge Summary
Discharge Data
Date of Admission: 02/15/24
Date of Discharge: 02/21/24
-
Pending Results: No
Hospital Course
Primary care physician : Fizt Daniel
Principal Discharge diagnosis : Open wound diabetic foot infection with suspected osteomyelitis, peripheral arterial disease status post diagnostic arteriogram
Chronic Discharge diagnosis : Type I (versus type II) diabetes mellitus uncontrolled, end-stage renal disease on dialysis twice weekly, chronic diastolic congestive heart failure with preserved ejection fraction, moderate aortic stenosis with aortic
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
Hospital Course : Patient was a 48-year-old female with a history of a right diabetic foot infection status post fifth toe amputation along with peripheral arterial disease and end-stage renal disease on dialysis twice weekly who presented with
complaints of swelling and pain in her right foot over the week prior to admission. There was sloughing of material from the foot but she denied pain. She denied fevers or chills. She does report feeling fatigued on dialysis. She was admitted in
December for right diabetic foot infection and at that time underwent fifth toe amputation which was left open for secondary intention healing. Cultures at that time showed Staph aureus and group B strep. Patient was admitted.
Problem #1: Open wound diabetic foot infection with suspected osteomyelitis. Patient was started on vancomycin and Zosyn. Podiatry was consulted and the patient went to the operating room on February 17, 2024. They did not see any deep tissue
purulence. Cultures were however obtained which showed polymicrobial organisms. Organisms isolated were Klebsiella aerogenes, Enterobacter cloacae, Enterococcus faecalis, Staphylococcus aureus methicillin sensitive. ID was consulted at the request
of podiatry for antibiotic choices moving forward. Final choice of antibiotics based on sensitivities is ciprofloxacin 500 mg daily for 6 weeks and metronidazole 500 mg twice daily for 6 weeks. Because of this, her atorvastatin has been decreased
from 80 mg in the evening to 40 mg in the evening. Once she is finished with the antibiotics, atorvastatin can go back to the 80 mg.
Problem #2: Peripheral arterial disease. Patient was seen in consultation by vascular surgery. Right lower extremity arteriogram was done and balloon angioplasty behind the knee popliteal artery was performed. She should continue on dual
antiplatelet therapy with aspirin and Plavix. She is to follow-up with vascular surgery as an outpatient.
Problem #3: All other medical issues. These include Type I (versus type II) diabetes mellitus uncontrolled, end-stage renal disease on dialysis twice weekly, chronic diastolic congestive heart failure with preserved ejection fraction, moderate
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 Most of these medical issues were stable during her
hospitalization. Medications were continued as able. Dialysis was continued twice weekly as per her outpatient schedule. However, she likely would benefit from the normal 3 times per week due to volume status. In addition, diabetes was
uncontrolled as the patient's hemoglobin A1c was 10. Diabetic nurse practitioner was consulted to assist with management. Patient was continued on Lantus as well as aspart with meals.
Patient is stable for discharge home at this time with visiting nurses. If there are any questions regarding this dictation or her hospital stay, please do not hesitate to call. Our office number is [phone].
Time for discharge 33 minutes.
Procedure findings :
ARTERIOGRAM: POD 1 Right lower extremity arteriogram with third order vessel catheterization of right peroneal artery via left common femoral artery puncture. Balloon angioplasty of behind the knee popliteal artery with 4 mm Bard Lutonix drug-coated
balloon. Balloon angioplasty of proximal/origin of superficial femoral artery with 5 mm Bard Lutonix drug-coated balloon.
Discharge Plan
-
Patient Disposition: Home with Home Care
Discharge Diagnosis/Procedures: Diabetic foot infection with suspected osteomyelitis status post debridement 814 and successful angioplasty 815, peripheral arterial disease, chronic transaminitis, type I versus type 2 diabetes uncontrolled,
end-stage renal disease on hemodialysis twice weekly, chronic diastolic congestive heart failure with preserved ejection fraction, moderate aortic stenosis with aortic regurgitation, paroxysmal supraventricular tachycardia, history of iron
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
Condition: Good
Diet: Diabetic, Carb Controlled and Other diet
Additional Diets: low potassium/low sodium
Activity: No strenuous activity
Driving Restrictions: No driving
Bathing Restrictions: as per podiatry
Others Tests: Your follow-up arterial ultrasound is scheduled on 03/21/2024 at 10 AM here at [facility]
Stand Alone Forms: DC Instr - Vascular OR
Referrals:
Fitz Daniel DO [Family Provider] - in less than 1 week
Ana Cristina Allan CRNP [Specified Professional Personl] - 03/22/24 9:45 am
Prescriptions:
New
loperamide 2 mg Capsule
2 mg PO Q6HPRN PRN (Reason: DIARRHEA) Qty: 0 0RF
Insulin Glargine Lantus [Lantus] 3 UNITS
Subcutaneous Insulin Syringe [Syringe-Insulin] 0 UNIT
As Directed mls/hr SC HS
Reason for use: Diabetes
Ordered By: Christa Lynn MD
Last Taken: 02/20/24 22:03 0.03 mls
oxymetazoline [Nasal Decongestant (oxymetazl)] 0.05 % [place],Non-Aerosol
1 spray intranasal BID Qty: 0 0RF
Rx Instructions:
USE sparingly
ciprofloxacin HCl 500 mg Tablet
500 mg PO Q24H 42 Days Qty: 42 0RF
metronidazole 500 mg Tablet
500 mg PO BID 42 Days Qty: 84 0RF
atorvastatin 40 mg Tablet
40 mg PO QPM 42 Days Qty: 42 0RF
Rx Instructions:
use this dose while on cipro
Continued
omega 9-lne-bwk-fish oil 900-1,400 mg Capsule,Delayed Release(Dr/Ec)
1 cap PO DAILYPRN PRN (Reason: Supplement)
aspirin 81 mg Tablet,Delayed Release (Dr/Ec)
81 mg PO DAILY Qty: 30 0RF
ergocalciferol (vitamin D2) 1,250 mcg (50,000 unit) capsule
1,250 mcg PO HANSON
Santyl 250 unit/gram ointment
1 applic TOPICAL DAILY
Patient Comments:
02/15/2024: apply to right foot
Visbiome 112.5 billion cell Capsule
1 cap PO DAILY
insulin aspart U-100 100 unit/mL (3 mL) insulin pen
3 unit SC AC
clopidogrel 75 mg Tablet
75 mg PO DAILY Qty: 30 7RF
metoprolol succinate 25 mg Tablet Extended Release 24 Hr
25 mg PO HS Qty: 30 2RF
Patient Comments:
02/15/2024: Pt hasn't taken in 3 days due to how it makes her head feel
Discontinued
atorvastatin 80 mg Tablet
80 mg PO QPM Qty: 30 0RF
insulin glargine [Lantus Solostar U-100 Insulin] 100 unit/mL (3 mL) insulin pen
2 unit SC HS
Discharge Orders:
Discharge Patient (As Directed); Ordered 02/21/24
Ordered By: Christa Lynn
Discharge Date and Time
Print Language: ARGENTINE
[2024-02-21 14:55] VITALS: BP 155/87
--- NOTE | 2024-02-21 14:57 | PTCARENOTE ---
Pt received Dc instructions. She is very anxious about it and had lots of questions. Wound care orders confirmed to be the same as what she was doing at home. When i asked her what she did it at home it matched our current orders. She stated she
does her wound care and that [facility] will come twice a week. PT told me she knows how to do wound care. I did educate her about her long nails and the high risk of spreading infection. She agreed she might get them off. Pt verbalized an
understanding to all of her follow up visit sbut stated she cannot make the dates lsited and will re schedule tomorrow. She verbalized an understanding to her wound care, medications and all medication changes. She confirmed her pharmacy is open
and sent her son topick up scripts. IV removed not bleeding and awaiting her ride.
== END 2024-02-21 15:40 | disposition home health service (06) | DRG 252 ==
LOC: 3 WEST ACU 19:24
PROVIDERS: Nurse Practitioner; Physician Assistant; Specialist; Surgery Vascular Surgery; ADMITTING PHYSICIAN Hospitalist; ATTENDING PHYSICIAN Internal Medicine; CONSULT PHYSICIAN Internal Medicine; CONSULT PHYSICIAN Otolaryngology Facial Plastic Surgery; CONSULT PHYSICIAN Podiatrist Foot & Ankle Surgery; CONSULT PHYSICIAN Student in an Organized Health Care Education/Training Program; CONSULT PHYSICIAN Surgery Vascular Surgery; EMERGENCY PHYSICIAN Student in an Organized Health Care Education/Training Program; FAMILY PHYSICIAN Internal Medicine
PROC: 0JBQ0ZZ Excision of Right Foot Subcutaneous Tissue and Fascia, Open Approach (ICD-10-PCS; 2024-02-17)
PROC: 5A1D70Z Performance of Urinary Filtration, Intermittent, Less than 6 Hours Per Day (ICD-10-PCS; 2024-02-17)
PROC: 047M3Z1 Dilation of Right Popliteal Artery using Drug-Coated Balloon, Percutaneous Approach (ICD-10-PCS; 2024-02-18)
PROC: 047K3Z1 Dilation of Right Femoral Artery using Drug-Coated Balloon, Percutaneous Approach (ICD-10-PCS; 2024-02-18)
DX: E10.51 Type 1 diabetes mellitus with diabetic peripheral angiopathy without gangrene (principal); N18.6 End stage renal disease; I13.2 Hypertensive heart and chronic kidney disease with heart failure and with stage 5 chronic kidney disease, or end stage renal disease; I50.32 Chronic diastolic (congestive) heart failure; I70.235 Atherosclerosis of native arteries of right leg with ulceration of other part of foot; E10.621 Type 1 diabetes mellitus with foot ulcer; E10.628 Type 1 diabetes mellitus with other skin complications; L97.519 Non-pressure chronic ulcer of other part of right foot with unspecified severity; E10.22 Type 1 diabetes mellitus with diabetic chronic kidney disease; E10.40 Type 1 diabetes mellitus with diabetic neuropathy, unspecified; E10.69 Type 1 diabetes mellitus with other specified complication; L08.9 Local infection of the skin and subcutaneous tissue, unspecified; Z79.4 Long term (current) use of insulin; Z99.2 Dependence on renal dialysis
CPT/HCPCS: 37224; 73620; 75625; 75716; 76937; 80048; 80053; 80202; 82962; 82977; 83036; 83735; 85025; 85027; 85610; 85730; 86850; 86900; 86901; 87070; 87075; 87077; 87147; 87186; 87205; 93005; 96365; 99285; C1769; C1887; C1894; C2623; G0257; J2997; P9047; Q5106; Q9967

== ENCOUNTER → 2024-04-01 11:00 | Outpatient (REF) | payer OTHER, SELFPAY | LOC: RAD 11:00 | PROVIDERS: ATTENDING PHYSICIAN Surgery Vascular Surgery | DX: I73.9 Peripheral vascular disease, unspecified (principal) | CPT/HCPCS: 93922; 93925 ==

== ENCOUNTER 2024-07-04 14:14 | Inpatient (IN) | payer OTHER, SELFPAY ==
[2024-07-04 11:30] VITALS: BP 191/72
--- NOTE | 2024-07-04 12:09 | ED.GENMED ---
History of Present Illness
General
Chief Complaint: Skin Problem
Source: patient
Time Seen by Provider: 07/04/24 11:41
History of Present Illness
History of Present Illness:
48-year-old female with past medical history of hypertension, CHF, insulin-dependent diabetes, previous CVA, status post right fourth and fifth digit amputation earlier this year secondary to diabetic complications presents to the emergency
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 Garcia, for evaluation and treatment with IV antibiotics for recurring infection of the right foot with increased drainage and malodor which patient states started over the last 24 hours she does endorse
pain to the right foot but states it is somewhat blunted secondary to diabetic. She is unaware of any fevers and is denying any chills, rigors or any other symptoms presently. Has not been on any antibiotic recently
Past History
Past History
ED Past Medical History: CHF, CVA, HTN, Hypercholesterolemia, IDDM and Other (Guillian-barre, blind right eye)
ED Past Surgical History: Cardiac (CABG in 1981) and Other
Patient has exhibited threatening behavior?: No
Social History
Tobacco: Non-smoker
Alcohol: Occasional
Drug: None
Personal: Other
Living: with family
Employment: Other
Family History
Family History: Other
Review of Systems
Review of Systems
All Other Systems: ROS reviewed and negative except as documented in HPI and ROS
Phy Exam
Physical Exam
Physical Exam:
GENERAL: Alert , in no apparent distress
EYE: conjunctiva clear
Head: Normocephalic atraumatic
NECK: Supple,
ENT: mmm.
LUNGS: no acute respiratory distress
NEUROLOGICAL: Alert and oriented
SKIN: Warm and dry, Right Foot: 2 previous toe amputation sites noted. Along lateral aspect of right foot there is an open malodorous wound measuring >1cm draining small blood, minimal purulence. There is surrounding edema and mild erythema. The
dorsum of the foot between the 3rd and 4th mid metatarsal also has small wound measuring <1cm with black eschar. There is also surrounding erythema and edema but no drainage
MUSCULOSKELETAL: CR < 2sec, faintly palpable pulses b/l
PSYCH: Normal and appropriate interaction.
Scores
Heart Failure Risk
Heart Failure Risk Score: Not Applicable
Heart Score for Chest Pain Patients
STEMI patient?: Not applicable
Withdrawal Assessment of Alcohol
Withdrawal Assessment Completed?: Not applicable
Course
Orders/Labs/Results
Orders:
Orders
07/04/24 12:05
Piperacillin/Tazo 3.375 Gram [Zosyn] 3.375 gram in 50 ml IV NOW
CR Foot - Right Min 3 Views Urgent
Comment:
Reason For Exam: wounds, s/p 4/5 digit amputation, infection
07/04/24 12:20
CRP [C-Reactive Protein] Urgent
Complete Blood Count/With Diff Urgent
ESR [Erythrocyte Sed Rate] Urgent
07/04/24 13:53
Admit/Transfer Patient As Directed
Co-Sign Provider:
Level of Care: Inpatient admission
Assign to:: Medical/Surgical
Physician / Group: sudarshan
Diagnosis: diabetic foot infection
Reason for Hospitalization: diabetic foot infection
Expected length of stay greater than two midnights?: Yes
ELOS- Estimated Length of Stay in days: 2
I certify the patient meets the requirements for IP care: Yes
Code Status As Directed
Resuscitation Status: Full Code
PRN Pain Medication Management As Directed
May give lesser potent ordered pain med per pt: Yes
preference::
Protocol:: Medication orders for pain may be administered in a
manner that supports deferring to patient preference
when the pt is:
- Requesting an ordered lesser potent pain medication.
Least to most potent pain medications are defined
as: acetaminophen < NSAID < tramadol < opioids
(morphine, oxycodone, hydromorphone).
- Requesting a lesser dose of the same medication IF
ORDERED.
- Requesting a less intrusive route of administration
if both routes are prescribed by the provider (PO <
IV).
07/04/24 13:56
Vancomycin [Vancocin] 2,000 mg 0.9% Sodium Chloride 500 ml [Nss] 500 ml IV NOW
07/04/24 14:17
Basic Metabolic Panel Urgent
07/04/24 Dinner
Cholesterol Lowering
At Your Request: Full Participation
Cholesterol Lowering: Sodium, 2 Gram
Abnormal Lab Results
07/04/24
12:20
Hgb 11.6 L g/dL
(12.0-16.0)
Hct 36.2 L %
(37.0-47.0)
MCH 26.4 L pg
(27.0-31.0)
MCHC 32.0 L g/dL
(33.0-37.0)
RDW 19.7 H %
(11.5-14.5)
Absolute Lymphs (auto) 1.1 L 10^3/uL
(1.2-3.4)
Absolute Monos (auto) 0.7 H 10^3/uL
(0.1-0.6)
Immature Gran % 0.6 H %
(0-0.5)
Lymphocytes % 17.9 L %
(20.5-51.1)
Monocytes % 10.7 H %
(1.7-9.3)
ESR 62 H mm/hour
(0-20)
C-Reactive Protein 10.30 H mg/L
(0.0-10.00)
07/04/24 12:20
07/04/24 12:20
Vital Signs
Initial and Last Documented VS:
Initial Vital Signs
Temp Pulse Resp BP Pulse Ox
98.2 F 78 18 191/72 95
07/04/24 11:30 07/04/24 11:30 07/04/24 11:30 07/04/24 11:30 07/04/24 11:30
Last Documented Vital Signs
Temp Pulse Resp BP Pulse Ox
98.2 F 76 19 191/63 91
07/04/24 11:30 07/04/24 14:27 07/04/24 14:27 07/04/24 14:27 07/04/24 14:27
MDM/Problems Addressed
Differential Diagnosis Includes:
Cellulitis, osteomyelitis, necrotizing fasciitis, peripheral vascular disease, diabetic foot ulcers
MDM/Problems Addressed:
48-year-old female presenting to the emergency department at request of her school bus driver to be treated with IV antibiotics for suspected diabetic foot infection. Patient is status post fourth and fifth digit amputation from earlier this year.
Patient had wound cultures done in the OR at that time and patient grew organisms including Klebsiella, Enterobacter, Enterococcus, and MSSA. Patient has secondly malodorous drainage, edema and 2 separate wounds of the right foot. Clinical concern
for recurring infection and combined with patient's past medical history and comorbidities certainly concern for potentially needing more operative management. Will start workup with antibiotics and imaging. Plan for admission with podiatry and
consults.
Chronic conditions affecting care: DM and PVD
Acute Exacerbation and/or Progression of Chronic Illness: DM and PVD
*Radiology
Radiology exam reviewed: preliminary read by ED provider (Osteomyelitis of the fifth metatarsal)
*Pulse Oximetry
Patient hypoxic: no
*Critical Care Note
Total Time (30-74mins, 75-104mins- exclusive of procedures): Not Applicable
Data Reviewed
Review of Other/Old Records Reveals: Labs, Records and Discharge Summary
Source: patient and records
Patient Management
Discussion with other providers: Hospitalist and Nurse Case Management
Escalation/DeEscalation of care consider admission/obs:
Based off patient's x-ray and exam findings there is clinical concern for osteomyelitis of the fifth metatarsal. Hospitalist team accepts for continued evaluation and treatment. Podiatry to consult.
ED Attending Note
-
Portions of this chart may have been created with voice recognition software.� Occasional wrong word or��sound alike� substitutions may have occurred due to the inherent limitations of voice recognition software.
Discharge Plan
Departure
Patient Disposition: Admit
Date of Disposition: 07/04/24
Time of Disposition: 13:21
Presentation/result/management discussed w/ accepting MD/DO: Hospitalist
Discharge Problem:
Acute osteomyelitis of right foot
Interventions
Interventions:
*Risk Screen - Suicide Last Done: 07/04/24 11:30
ED- Fall Risk Assessment Last Done: 07/04/24 13:17
ED-Skin Assessment Last Done: 07/04/24 13:16
[2024-07-04] MEDS: ZOSYN 50 IV ×3 (12:23→23:59)
[2024-07-04 12:45] VITALS: BMI 35.5
[2024-07-04 12:46] LABS: % Eosinophils 1.3 % (0-6); % Immature Granulocytes 0.6 % (0-0.5); % Lymphocytes 17.9 % (20.5-51.1); % Monocytes 10.7 % (1.7-9.3); % Neutrophils 68.5 % (42.2-75.2); Absolute Basophils 0.1 10^3/uL (0-0.2); Absolute Eosinophils 0.1 10^3/uL (0-0.7); Absolute Lymphocytes 1.1 10^3/uL (1.2-3.4); Absolute Monocytes 0.7 10^3/uL (0.1-0.6); Absolute Neutrophils 4.2 10^3/uL (1.4-6.5); Hematocrit 36.2 % (37.0-47.0); Hemoglobin 11.6 g/dL (12.0-16.0); Mean Corpuscular Hgb 26.4 pg (27.0-31.0); Mean Corpuscular Volume 82.5 fL (81.0-99.0); Mean Platelet Volume 9.9 fL (7.4-10.4); Nucleated Red Blood Cells % 0 %; Platelet Count 264 10^3/uL (130-400); Red Blood Cell Count 4.39 10^6/uL (4.20-5.40); Red Cell Dist. Width 19.7 % (11.5-14.5); White Blood Cell Count 6.2 10^3/uL (4.8-10.8)
[2024-07-04 13:07] LABS: Erythrocyte Sed Rate 62 mm/hour (0-20)
--- NOTE | 2024-07-04 14:02 | HPS.HSE ---
Family Physician
-
Family Physician: Fitz Daniel
Chief Complaint
-
diabetic foot infection
History of Present Illness
48-year-old female past medical history of CAD status post CABG, HFpEF, moderate aortic stenosis with aortic regurgitation, paroxysmal SVT, hypertension, type I diabetes, prior CVA, PAD, diabetic foot wound with suspected osteomyelitis status post
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 Garcia for recurrent infection of the right foot with drainage and
malodor which started over the past day. She has some pain this is blunted due to diabetic neuropathy. She denies any fevers or chills.
Medical History
Past Medical History
Past Medical History: Reports Other (CAD status post CABG, HFpEF, moderate aortic stenosis with aortic regurgitation, paroxysmal SVT, hypertension, type I diabetes, prior CVA, PAD, diabetic foot wound with suspected osteomyelitis status post
amputation, ESRD on hemodialysis twice weekly, iron deficiency anemia, Guillain-Song� syndrome )
Past Surgical History: Reports Other (CABG in 1981)
Social History
Tobacco: Non-smoker
Alcohol: None
Drug: None
Family History
Family History: Not pertinent
Allergies / Home Medications
Allergies reflects when Allergies were last updated in [employer].
Home Medications with original date entered in [employer]
Allergy/Medication List:
Allergies
Allergy/AdvReac Type Severity Reaction Status Date / Time
latex Allergy Hives Verified 07/04/24 11:33
Home Medications
aspirin 81 mg tablet,delayed release 81 mg PO DAILY Blood Clot Prevention/Tx #30 tabs 05/04/23
Lactobac no.2-Bifidobac no.1-S. thermo 112.5 billion cell capsule (Visbiome) 1 cap PO DAILY probiotic 02/15/24
ergocalciferol (vitamin D2) 1,250 mcg (50,000 unit) capsule 1,250 mcg PO HANSON Supplement 02/15/24
insulin aspart U-100 100 unit/mL (3 mL) subcutaneous pen 3 unit SC AC Diabetes 02/16/24
clopidogrel 75 mg tablet 75 mg PO DAILY Blood clot prevention/tx #30 tabs 02/20/24
atorvastatin 40 mg tablet 80 mg PO QPM 07/04/24
bumetanide 2 mg tablet 2 mg PO DAILY 07/04/24
carvedilol 3.125 mg tablet (Coreg) 3.125 mg PO BID 07/04/24
insulin glargine 100 unit/mL (3 mL) subcutaneous pen (Lantus Solostar U-100 Insulin) 4 unit SC HS 07/04/24
Review of Systems
-
History Source: Patient
A 12 point ROS was completed and negative except as noted: Yes
Constitutional: Reports No Symptoms
EENT: Reports No Symptoms
Respiratory: Reports No Symptoms
Cardiac: Reports No Symptoms
Abdomen/GI: Reports No Symptoms
: Reports No Symptoms
Musculoskeletal: Reports No Symptoms
Skin: Reports See HPI
Neurological: Reports No Symptoms
Endocrine: Reports No Symptoms
Hematologic/Lymphatic: Reports No Symptoms
Psych: Reports No Symptoms
Physical Exam
Vital Signs
Vital Signs
Temp Pulse Resp BP Pulse Ox
98.2 F 78 18 191/72 95
07/04/24 11:30 07/04/24 11:30 07/04/24 11:30 07/04/24 11:30 07/04/24 11:30
Physical Exam
General: Well Developed, Well Nourished and No Apparent Distress
HEENT: NormoCephalic, Moist mucous membranes and Atraumatic
Respiratory: Clear
Cardiac: S1/S2 and Regular Rhythm; No Murmur or Rub
GI: Soft, Non Tender, Non Distended and Normal Bowel Sounds; No Organomegaly
Rectal: Deferred by Provider
Musculoskeletal: No Clubbing, No Cyanosis and No Edema
Skin: No Rash
Neuro: Nonfocal/grossly intact
Laboratory Results
-
07/04/24 12:20
Data Reviewed
-
Lab Data: Labs Reviewed by me
Old Records: Reviewed
Impression/Plan
-
IMPRESSION:
PLAN:
# Right diabetic foot infection with possible osteomyelitis
-Vancomycin/Zosyn
-Foot x-ray shows cortical irregularity with bone loss at the level of the osteotomy site the right fifth metatarsal suspicious for osteomyelitis
-Check MRI foot
-Podiatry consulted
-Vascular surgery consult
History of diabetic foot infection status post fifth toe amputation/revision of fourth toe amputation
PAD status post diagnostic angiogram/intravascular lithotripsy of posterior tibial artery/proximal SFA, balloon angioplasty of posterior tibial artery
-Continue aspirin, Plavix, statin
Type 1 diabetes
-Continue Lantus 40 units
-Insulin sliding scale
ESRD no longer on hemodialysis
-Patient previously on hemodialysis but denies being on hemodialysis at this time
CAD status post CABG
Chronic HFpEF
-Continue Bumex
-Continue Coreg
Moderate aortic stenosis/aortic regurgitation/mild to moderate mitral stenosis
Paroxysmal SVT
Iron deficiency anemia
CVA
Jam� with chronic left lower extremity weakness
Right eye blindness
Hearing loss
Chronic transaminitis
Full code
DVT prophylaxis�heparin
Cardiac diet
[2024-07-04] MEDS: VANCOCIN 540 MG IV (14:13)
[2024-07-04 14:27] VITALS: BP 191/63
[2024-07-04 14:45] LABS: Blood Urea Nitrogen 64 mg/dl (7-17); Calcium 8.7 mg/dl (8.4-10.2); Carbon Dioxide 29 mmol/L (22-30); Chloride 98 mmol/L (98-107); Estimated Creatinine Clearance 31 ml/min; Glucose 284 mg/dl (70-99); Potassium 4.1 mmol/L (3.5-5.1); Sodium 134 mmol/L (135-145)
--- NOTE | 2024-07-04 14:49 | CON.VAS ---
Addendum entered and electronically signed by Memo Whitmore III, MD 07/05/24 11:09:
This patient was seen and examined with NILDA Willett. I agree with the history and physical exam as well as the assessment and plan. I have the following additions:
Known to me
DM, poorly controlled
PAD
Non healing wound right foot
Prior endo interventions
Seen by me in office recently.
Offered another a'gram but she stated shes moving to [place] and did not commit to the procedure.
Now admitted with foot wound and associated infection
Plan for a'gram and possible intervention Thursday.
Signed:
Memo Whitmore III, MD
[facility] Vascular Surgery
[phone] (cell)
Addendum entered and electronically signed by NILDA Willett 07/04/24 16:18:
Medial wound 07/04/24
Dorsum wound 07/04/24
Original Note:
Consultation
Consultation Request
Date/Time Consultation Performed: 07/04/24 1500
Requesting Provider: Radha Lainez MD
Performing Provider: Aletha Benson DISABILITY EXAMINER -C for Memo Whitmore III, MD
Reason for Consultation: Right foot chronic wound
Medical History
-
Chief Complaint: Right foot chronic infection
History of Present Illness:
This is a 48-year-old female with significant past medical history of diabetes type 2, CAD(CABG 1981), chronic kidney disease, CVA x2, hypertension, retinopathy, CHF, and peripheral arterial disease who is known to our service for prior angiograms
for non-healing right foot wound presents to [facility] ED at recommendation of fur coat sewer for concern of acute infection at chronic wounds of prior amputation site and dorsum. Patient recently saw Dr. Memo Whitmore III in the outpatient setting on
06/13/2024, at that time he recommended proceeding with angiogram at that time but patient reports she is moving shortly to [place] and opted to not call back our office and schedule procedure. She denies nausea, vomiting, fever, and chills. Reports
worsening in odor and redness at right lower extremity foot wound. Prior vascular surgery history listed below.
Vascular Surgery:
12/21/23: Intravascular lithotripsy to diffuse right posterior tibial artery stenosis (3 mm x 80 mm E8 shockwave balloon). Intravascular lithotripsy to right above-knee popliteal artery stenosis (6 mm x 60 mm M5+ shockwave balloon). Intravascular
lithotripsy to right proximal superficial femoral artery stenosis (6 mm x 60 mm M5+ shockwave balloon). Diagnostic aortobiiliac arteriogram (CO2). Diagnostic right lower extremity arteriogram (CO2 plus 1/4 strength contrast)- Dr. Memo Whitmore III
02/18/24: Aortogram and pelvic angiogram, right lower extremity arteriogram with third order vessel catheterization of right peroneal artery via left common femoral artery puncture, balloon angioplasty of behind the knee popliteal artery with 4 mm
Bard Lutonix drug-coated balloon, balloon angioplasty of proximal/origin of superficial femoral artery with 5 mm Bard Lutonix drug-coated balloon, Left femoral angiogram- Dr. Law Lai
Past Medical History
Past Medical History: Other (Right diabetic foot infection status post fifth toe amputation, peripheral arterial disease, ESRD on hemodialysis Thursday and Thursday, diastolic CHF, presumed type I diabetes, iron deficiency anemia, CVA, paroxysmal SVT,
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
Past Surgical History: Other (Right fifth digit amputation, see HPI for vascular surgical intervention history)
Social History
Tobacco: Non-Smoker
Alcohol: None
Drug: None
Allergies / Home Medications
Allergy/AdvReac Type Severity Reaction Status Date / Time
latex Allergy Hives Verified 07/04/24 11:33
�Medication �Instructions �Recorded �Confirmed �Type
aspirin 81 mg tablet,delayed 81 mg PO DAILY Blood Clot 05/04/23 07/04/24 Rx
release Prevention/Tx #30 tabs
Lactobac no.2-Bifidobac no.1-S. 1 cap PO DAILY probiotic 02/15/24 07/04/24 History
thermo 112.5 billion cell capsule
(Visbiome)
ergocalciferol (vitamin D2) 1,250 1,250 mcg PO HANSON Supplement 02/15/24 07/04/24 History
mcg (50,000 unit) capsule
insulin aspart U-100 100 unit/mL 3 unit SC AC Diabetes 02/16/24 07/04/24 History
(3 mL) subcutaneous pen
clopidogrel 75 mg tablet 75 mg PO DAILY Blood clot 02/20/24 07/04/24 Rx
prevention/tx #30 tabs
atorvastatin 40 mg tablet 80 mg PO QPM 07/04/24 07/04/24 History
bumetanide 2 mg tablet 2 mg PO DAILY 07/04/24 07/04/24 History
carvedilol 3.125 mg tablet (Coreg) 3.125 mg PO BID 07/04/24 07/04/24 History
insulin glargine 100 unit/mL (3 4 unit SC HS 07/04/24 07/04/24 History
mL) subcutaneous pen (Lantus
Solostar U-100 Insulin)
Review of Systems
-
History Source: Patient
Constitutional: Reports No Symptoms
EENT: Reports No Symptoms
Respiratory: Reports No Symptoms
Cardiac: Reports No Symptoms
Abdomen/GI: Reports No Symptoms
: Reports No Symptoms
Musculoskeletal: Reports No Symptoms
Skin: Reports Other (Worsening odor and purulent drainage from right foot wound)
Neurological: Reports No Symptoms
Endocrine: Reports No Symptoms
Physical Exam
Vital Signs
Temp Pulse Resp BP Pulse Ox
98.2 F 76 19 191/63 91
07/04/24 11:30 07/04/24 14:27 07/04/24 14:27 07/04/24 14:27 07/04/24 14:27
Lab Results
07/04/24 12:20
07/04/24 14:17
Physical Exam
General: No Apparent Distress and Comfortable
HEENT: Normocephalic, Anicteric and Atraumatic
Respiratory: Non Labored Respirations
Cardiac: Negative JVD
GI: Soft, Non Tender and Non Distended
Musculoskeletal: Edema (Right lower extremity with +1 edema)
Skin: Warm and Other (Right dorsum and lateral side of foot with necrotic wounds, lateral wound with purulent drainage, malodorous)
Neuro: Awake and Oriented
Assessment / Plan
-
Assessment: 48-year-old female with peripheral arterial disease and nonhealing amputation site
Plan:
Would recommend repeat angiography based on nonhealing to ensure adequacy for wound healing and nonrecurrent stenoses. Discussed this all with her, plan angiography likely 07/08/23.
Continue IV antibiotics
I performed this shared service with the attending. I evaluated the patient [id number] and have entered clinical documentation as shown in the encounter note. I performed the following component(s): history and physical exam. Note that medical
decision making is not final until attested by vascular attending.
[2024-07-04 17:08] LABS: Glucose - Point of Care 250 mg/dl (70-99)
[2024-07-04 17:11] VITALS: BP 180/90
[2024-07-04 17:15] VITALS: BMI 34.0
[2024-07-04 17:18] VITALS: BMI 34.0
--- NOTE | 2024-07-04 17:19 | PHA.VAN.IN ---
Assessment
- Assessment
Renal Function: Appears similar to baseline
Concomitant Antimicrobials: ZOSYN
- Previous Dosing Experience
Previous Regimen: DOSING BY RANDOM LEVELS
Date of Regimen: 02/15/24
Provided Trough of: UNKNOWN
Provided AUC of: UNKNOWN
Patient's SCR is: Similar to previous dosing experience (02/15/24 SCR = 2.4)
Patient's weight is: Elevated compared to previous dosing experience (02/15/24 WT = 79.5 KG)
Plan
- Plan
Initial / Loading Dose: 2GM
Maintenance Regimen: DOSING BY RANDOM LEVELS
Monitoring: RANDOM VANCOMYCIN LEVEL 07/05/24 AM
Pharmacokinetics Vancomycin I
- -
Patient Age: 48
Patient Sex: Female
Vancomycin Day #: 1
Indication: Diabetic Foot
Requesting Provider: 1
Height / Weight:
Height 5 ft 3 in
Actual Weight 87.09 kg
Pertinent Past Medical History: DM; OM; S/P AMPUTATION
- Vital Signs / Lab Results
Temp Pulse Resp BP Pulse Ox
98.4 F 75 17 180/90 97
07/04/24 17:11 07/04/24 17:11 07/04/24 17:11 07/04/24 17:11 07/04/24 17:11
Lab Results - Hematology
07/04/24
12:20
WBC 6.2
Lab Results - Chemistry
07/04/24 07/04/24
12:20 14:17
BUN Cancelled 64 H
Creatinine Cancelled 2.4 H
Estimated Creat Clear Cancelled 31
[2024-07-04] MEDS: NOVOLOG FLEXPEN 3 UNITS SC (17:42)
[2024-07-04] MEDS: NOVOLOG FLEXPEN-LOW RESISTANCE 3 UNITS SC (17:42)
[2024-07-04] MEDS: LIPITOR 80 MG PO (17:44)
[2024-07-04 18:00] VITALS: BP 190/80
--- NOTE | 2024-07-04 18:30 | PTCARENOTE ---
Patient admitted to 2N from ED into room 2136. Patient AAOX3, legally blind R eye, admitted with R foot wound. Patient ambulatory in room and bathroom with standby assist, states using RW PRN with generalized weakness r/t prior hx of GBS and CVA;
this RN communicated with podiatry, stated patient is WBAT to RLE with RW. RLE wrapped in kerlix and AMANDA wrap by vascular surgery, L foot wrapped with gauze, patient states vascular surgery 'popped a blister' on L foot down in ED. + doppler pedal
pulses. BP on admission 180/90 LUE automatic taken by tech, manual BP taken by this RN 190/80. Patient is tearful and anxious at bedside and states this can cause her blood pressure to fluctuate. This RN communicated with ED MD and cross coverage,
orders for PRN IV hydralazine and PRN PO ativan ordered per ED MD. This RN administered PRN IV hydralazine per parameters, made patient aware of PRN PO ativan for anxiety but patient denies needing it at this time. Blood sugar 250, 1800 karen diabetic
diet added to diet order per podiatry by this RN. Patient oriented to room and call ambriz.
[2024-07-04] MEDS: APRESOLINE 5 MG IV (18:44)
[2024-07-04] MEDS: HEPARIN 5000 UNITS SC (20:55)
[2024-07-04] MEDS: COREG 3.125 MG PO (20:55)
[2024-07-04 21:24] LABS: Glucose - Point of Care 292 mg/dl (70-99)
[2024-07-04] MEDS: LANTUS 0.04 UNITS SC (21:34)
[2024-07-04 23:25] VITALS: BP 148/68
[2024-07-05] MEDS: ZOSYN 50 IV ×4 (05:58→23:46)
[2024-07-05 06:00] VITALS: BMI 34.0
[2024-07-05 07:15] VITALS: BP 152/71
--- NOTE | 2024-07-05 08:22 | VNURNOTE ---
Chart reviewed. Patient is current with [facility] nursing. Will continue to follow hospital course and DC plans.
[2024-07-05 08:43] LABS: Glucose - Point of Care 217 mg/dl (70-99)
--- NOTE | 2024-07-05 09:03 | PHA.VAN.FU ---
Vancomycin Assessment / Plan
- Assessment
Renal Function: Stable
WBC's are: WNL
In the past 24 hrs, patient has been: Afebrile
Concomitant Antimicrobials: piperacillin/tazobactam
Patient has been off HD for several months
- Assessment - Therapeutic Drug Monitoring
Random Level: 17.6 - drawn ~21H after 2g loading dose
- Dosing Plan
Dosing by Level: Hold off on dosing today
- Monitoring Plan
Random Level: 07/06 0600
Monitoring Comments: follow renal function
- Follow Up
Pharmacy will continue to follow.
Vancomycin Follow UP
- -
Patient Age: 48
Patient Sex: Female
Vancomycin Day #: 2
Indication: Diabetic Foot
Requesting Provider: Dr. Lainez / Luz
Pertinent Antimicrobial Allergies:
no pertinent antibiotic allergies
Height / Weight:
Height 5 ft 3 in
Actual Weight 87.09 kg
Pertinent Past Medical History: BMI ~34, DM 1, PAD, CKD
- Vital Signs / Lab Results
Temp Pulse Resp BP Pulse Ox
97.9 F 74 16 152/71 95
07/05/24 07:15 07/05/24 07:15 07/05/24 07:15 07/05/24 07:15 07/05/24 07:15
Lab Results - Hematology
07/04/24
12:20
WBC 6.2
Lab Results - Chemistry
07/04/24 07/04/24
12:20 14:17
BUN Cancelled 64 H
Creatinine Cancelled 2.4 H
Estimated Creat Clear Cancelled 31
[2024-07-05] MEDS: ASPIR LOW (ENTERIC COATED) 81 MG PO (09:18)
[2024-07-05] MEDS: PLAVIX 75 MG PO (09:18)
[2024-07-05] MEDS: VISBIOME 1 CAP PO (09:18)
[2024-07-05] MEDS: COREG 3.125 MG PO ×2 (09:18→19:50)
[2024-07-05] MEDS: BUMEX 2 MG PO (09:18)
[2024-07-05] MEDS: NOVOLOG FLEXPEN 3 UNITS SC ×3 (09:20→17:44)
[2024-07-05] MEDS: HEPARIN SC (09:20)
[2024-07-05 09:42] LABS: % Basophils 1.3 % (0-2); % Eosinophils 3.7 % (0-6); % Immature Granulocytes 0.2 % (0-0.5); % Lymphocytes 23.3 % (20.5-51.1); % Monocytes 11.5 % (1.7-9.3); Absolute Basophils 0.1 10^3/uL (0-0.2); Absolute Eosinophils 0.2 10^3/uL (0-0.7); Absolute Lymphocytes 1.3 10^3/uL (1.2-3.4); Absolute Monocytes 0.6 10^3/uL (0.1-0.6); Absolute Neutrophils 3.2 10^3/uL (1.4-6.5); Hematocrit 35.3 % (37.0-47.0); Hemoglobin 11.2 g/dL (12.0-16.0); Mean Corp Hgb Conc. 31.7 g/dL (33.0-37.0); Mean Corpuscular Hgb 25.7 pg (27.0-31.0); Mean Corpuscular Volume 81.1 fL (81.0-99.0); Mean Platelet Volume 9.2 fL (7.4-10.4); Nucleated Red Blood Cells % 0 %; Platelet Count 229 10^3/uL (130-400); Red Blood Cell Count 4.35 10^6/uL (4.20-5.40); Red Cell Dist. Width 19.9 % (11.5-14.5); White Blood Cell Count 5.4 10^3/uL (4.8-10.8)
[2024-07-05 10:20] LABS: ALT (SGPT) 40 U/L (0-35); AST (SGOT) 32 U/L (14-36); Albumin 2.9 g/dl (3.5-5.0); Alkaline Phosphatase 554 U/L (38-126); Blood Urea Nitrogen 60 mg/dl (7-17); Calcium 8.7 mg/dl (8.4-10.2); Carbon Dioxide 25 mmol/L (22-30); Chloride 101 mmol/L (98-107); Estimated Creatinine Clearance 29 ml/min; Glucose 234 mg/dl (70-99); Potassium 4.3 mmol/L (3.5-5.1); Sodium 135 mmol/L (135-145); Total Bilirubin 0.6 mg/dl (0.2-1.3); Total Protein 6.7 g/dl (6.3-8.2); eGFR 23.14
[2024-07-05] MEDS: NOVOLOG FLEXPEN-LOW RESISTANCE 2 UNITS SC ×2 (10:28→15:00)
--- NOTE | 2024-07-05 10:42 | W.PN.UPDATE ---
Addendum entered and electronically signed by Memo Whitmore III, MD 07/05/24 11:07:
This patient was seen and examined with NILDA Albright. I agree with the history and physical exam as well as the assessment and plan.
Arteriogram Thursday
Signed:
Memo Whitmore III, MD
[facility] Vascular Surgery
[phone] (lvpl)
Original Note:
Update Note
Progress Note Update
Patient seen at bedside this a.m. with Dr. Whitmore. Patient offers no complaints at this time. No events overnight.
Planning for arteriogram Thursday with Dr. Whitmore. Patient in agreement. Team aware.
--- NOTE | 2024-07-05 11:11 | CM ---
Pt admitted from ED yesterday afternoon. Currently Shea is ambulatory for short distances in her hospital room.
CM met with Shea at bedside to complete IA. She lives with her children in an apartment with elevator acces. Pt's son is her primary caregiver; pt is also known to [facility]. Shea goes to dialysis twice a week at [facility].
Currently Shea is ambulatory for short distances in her hospital room.
CM will follow to coordinate needs as identified through continued hospitalization. [facility] following for services at discharge.
--- NOTE | 2024-07-05 11:37 | WOUNDNOTE ---
[facility] RN NOTE: Reviewed chart, pictures and met with patient. Patient reports her foot was just wrapped by Dr. Escobar and she declined further assessment today. Awaiting podiatry consult and orders. An arteriogram is planned for Thursday. Will follow
peripherally.
[2024-07-05 11:52] LABS: Vancomycin Random 17.6 ug/ml
--- NOTE | 2024-07-05 13:07 | CON.ID ---
Consultation
-
Date/Time Consultation Requested: 07/05/2024 0839
Date/Time Consultation Performed: 07/05/2024 1000
Requesting Provider: Dr. Haq
Performing Provider: Dr. Escobar
Reason for Consultation: Right foot infection
Chief Complaint / Past History
History of Present Illness
Shea Kent is a 48-year-old female with a significant past medical history of ESRD�HD, CVA and DM being evaluated at the request of Dr. Haq in regards to a right foot infection. History is obtained from chart review, along with
patient interview.
The patient is known to the Infectious Diseases service, having been seen in mid February 2024 for right foot infection. During that admission, she was found to have an recurrent right foot diabetic foot infection with underlying osteomyelitis.
Wound cultures grew out Klebsiella, Enterobacter, Enterococcus and Staph aureus. She ultimately was discharged to home on 02/20, to continue with a 6-week course of ciprofloxacin and metronidazole through 03/27/2024.
Following that she continues to follow with podiatry and reports that the area improved, but she has continued to have a wound in the area. More recently, she reports increasing malodor of the foot for approximately the past week and when she saw
podiatry yesterday she was sent to the hospital for further workup.
She denies any fevers or chills. She notes intermittent congestion. She denies any inguinal swelling or tenderness. She does note that the foot is tender to touch, with underlying pain of approximately 3/10.
Past History
Additional Past Medical History:
CKD stage IV (Hx of HD, but now off)
IDDM (uncontrolled; HbA1c =)
PAD
Diastolic CHF
Anemia
Hx CVA
Paroxysmal SVT
Hx Guillain-Song� with chronic LLE weakness
Additional Past Surgical History:
Right foot partial 4/5 met amputations
T&A
Eye sx
Cardiac Sx as infant
Allergy History:
latex Allergy (Verified 07/04/24 11:33)
Hives
Medications Reviewed: Yes
Current Antibiotics:
Vancomycin (dosed per pharmacy)
Zosyn 2.25 g IV every 6 hours
Social History
Tobacco: Non-Smoker
Alcohol: None
Drug: None
Living: With Family
Family History
Family History: Not Pertinent
Review of Systems
Vital Signs
Temp Pulse Resp BP Pulse Ox
97.9 F 74 16 152/71 95
07/05/24 07:15 07/05/24 07:15 07/05/24 07:15 07/05/24 09:18 07/05/24 10:49
Physical Exam
Physical Exam
Constitutional: Comfortable, Chronically Ill and Non-toxic
Head: Normocephalic
Eyes: Pupils Equal, Pupils Round, No Conjunctival Hemorrhage and Sclera Anicteric
Oral: No Thrush and No Ulcers
Cardiovascular: Regular Rate, S1/S2 and Murmur (3/6); Negative S3/S4
Pulmonary: Clear; Negative Wheezes, Rales or Rhonchi
Gastrointestinal: Soft, Non Tender and Non Distended
Extremities: Edema (3+ B/L LE; to knees) and Erythema (mild)
Wound: Other (Right lateral foot with wound over fifth met area. Significant malodor. Dermal gangrene noted. No expressible purulence. Please see wound care photos.)
Neurological: Awake and Alert
Psychological: Calm
Lab / Diagnostic Study Results
07/05/24 09:15
07/05/24 09:15
Abs Immat Gran (auto) 0.0 10^3/uL (0-0.05) 07/05/24 09:15
Absolute Neuts (auto) 3.2 10^3/uL (1.4-6.5) 07/05/24 09:15
Absolute Lymphs (auto) 1.3 10^3/uL (1.2-3.4) 07/05/24 09:15
Absolute Monos (auto) 0.6 10^3/uL (0.1-0.6) 07/05/24 09:15
Absolute Basos (auto) 0.1 10^3/uL (0-0.2) 07/05/24 09:15
Immature Gran % 0.2 % (0-0.5) 07/05/24 09:15
Neutrophils % 60.0 % (42.2-75.2) 07/05/24 09:15
Lymphocytes % 23.3 % (20.5-51.1) 07/05/24 09:15
Monocytes % 11.5 % (1.7-9.3) H 07/05/24 09:15
Eosinophils % 3.7 % (0-6) 07/05/24 09:15
Basophils % 1.3 % (0-2) 07/05/24 09:15
ESR 62 mm/hour (0-20) H 07/04/24 12:20
C-Reactive Protein 10.30 mg/L (0.0-10.00) H 07/04/24 12:20
Microbiology Results
Micro:
07/04/24 17:23 MRSA Screen - Pending
Nose
Imaging:
07/05/2024 MRI right lower extremity: Postoperative changes of fourth and fifth partial ray amputation. There are findings of infection and soft tissue defect along the residual lateral soft tissues of the foot. There is associated underlying acute
osteomyelitis of the shaft of the residual fifth metatarsal.
07/04/2024 X-ray right foot: Cortical irregularity with bone loss at the level of the osteotomy site the right fifth metatarsal in the interval since most recent prior radiograph, at least suspicious for osteomyelitis.
Assessment / Plan
Right foot osteomyelitis
Right foot SSTI with gangrene
Elevated ESR
CKD stage IV (Hx of HD, but now off)
IDDM (uncontrolled; HbA1c = 10.1 on 02/16/24)
PAD
Functional immunosuppression
Diastolic CHF
Anemia
Hx CVA
Paroxysmal SVT
Hx Guillain-Song� with chronic LLE weakness
Recommendations:
Continue with empiric zosyn; dose adjusted for CKD stage IV
Vanco dosed by levels
Check wound culture.
Will need bone bx and culture +/- debridement of remaining (R) 5th met.
Vascular on board. For tentative angiogram Thursday.
Given uncontrolled diabetes, peripheral vascular disease and CKD, patient in an extremely high risk situation for limb loss.
Care Review
Plan reviewed with: Physician (Hospitalist)
[2024-07-05 13:12] LABS: Glucose - Point of Care 220 mg/dl (70-99)
--- NOTE | 2024-07-05 13:49 | PTCARENOTE ---
b/l pedal pulses found with doppler. pt with son at bedside. this RN discussed labs with patient and son this afternoon. MRSA still pending. pt oobx1 with assistance
--- NOTE | 2024-07-05 15:01 | W.PN.HOSP.TC ---
Today's Communication/Plan
-
Assessment / Plan
Assessment / Plan
Right diabetic foot infection with osteomyelitis, confirmed on MRI
-Osteomyelitis of shaft of the residual fifth metatarsal
-Will continue vancomycin, dosed per levels, per ID
-Continue Zosyn
-Follow-up blood cultures
-Vascular surgery planning for CT angiogram on 07/08
-Podiatry consulted
PAD
-Continue aspirin Plavix statin
Type 1 diabetes
-Continue long-acting insulin and sliding scale
-Carb controlled diet
-Accu-Cheks
-Accuchecks 140-180
-A1c pending
-Will have diabetes HEALTH PROGRAM ANALYST evaluate for strict blood glucose control
CAD
-S/p CABG
-Continue Statin and BB
Chronic HFpEF
-COntinue Bumex and BB
MARYLOU on CKD stage V
-Previously on hemodialysis, per Ms. Diallo was taken off of dialysis 2 months ago
-Baseline creatinine at that time was between 1.5-1.8
-At this time no indication for hemodialysis
-If renal function getting worse will consult nephrology
-Will order a renal bladder ultrasound
Chronic transaminitis
-Stable
Anticipated Discharge: > 48 hours
Subjective/Interval History
-
Date of Service: July 05, 2024
Seen and examined. No new complaints. No acute overnight events.
I personally spoke with infectious disease outside the room. Notes malodorous, gangrenous foot
Objective Data
-
Labs:
Laboratory Results
07/05/24
09:15
WBC 5.4
Hgb 11.2 L
Hct 35.3 L
Plt Count 229
Sodium 135
Potassium 4.3
Chloride 101
Carbon Dioxide 25
BUN 60 H
Creatinine 2.5 H
Glucose 234 H
Calcium 8.7
Total Bilirubin 0.6
AST 32
ALT 40 H
Alkaline Phosphatase 554 H
Vital Signs:
Vital Signs
Temp Pulse Resp BP Pulse Ox
97.9 F 74 16 152/71 95
07/05/24 07:15 07/05/24 07:15 07/05/24 07:15 07/05/24 09:18 07/05/24 10:49
I&O
07/04/24 07/05/24 07/06/24
06:59 06:59 06:59
Intake Total 840 / 840 720 / 720
Balance 840 / 840 720 / 720
Physical Exam
-
General: Well Developed and Well Nourished
HEENT: Normocephalic and Atraumatic
Respiratory: Clear to Auscultation
Cardiac: Regular Rhythm and S1/S2
GI: Soft, Nontender and Nondistended
Musculoskeletal: No Clubbing and Other (Right foot wrapped. Will not allow me to unwrap new dressing that was just previously placed)
Skin: Warm
Neuro: Awake, Alert, Oriented and AO x 3
Psych: Other (Bizarre behavior)
--- NOTE | 2024-07-05 15:10 | PTCARENOTE ---
pt states her last HD treatment was 2 months ago and she was receiving treatment through a HD cath. when she stopped stated her creatinine was 1.5-1.8. MD made aware.
podiatry request to hold plavix for plans of seeing patient on . MD also made aware of this information.
--- NOTE | 2024-07-05 15:41 | W.CS.POD ---
Consult Summary - Podiatry
-
48 yo patient known to me very well, with h/o multiple Rt foot debridements and partial 4th and 5th metatarsal resections in december 2023 , she had this chronic slowly healing Rt foot diabetic ulcer , she has type 1 diabetes with CKD on dialysis for
short period of time in the past , has multiple comorbidities has been admitted for the infected, malodorus Rt foot ulcer, patient had not seen me for over 5 wks, when I saw her 07/04/24, wound had some pus and foul odor so i sent her to the hosp
for possible IV abx and debridement etc. She is currently on IV abx and improving foul odor and resolving draiange from Rt foot.
Reviewed PMH, meds and allergies
B/L feet with diminished ulses,edematous
Rt lateral foot ulcer with scant purulence, necrotic tissue in the center of the ulcer ,
LT lateral foot with dried blister, no local erythema noted to Lt foot.
Xrays and MRi showing osteomyelitis of 5th metatarsal shaft.
A/P; Rt foot infected diabetic foot ulcer
Osteomyelitis Rt 5th metatarsal
CKD
Diabetic vascular disease
Plan : Cont IV Abx per ID
appreciate ID and vascular surgery.
Discussed with that she needs Rt foot debridement and bone resection for path and micro
Possible group home IV abx per ID
Discussed all risks of non healing, reinfection, more proximal amputations, more surgeries on her foot. No guarantees given to save her limb or life,
Scheduled for RT foot debridement and bone resection on 07/07/24
Need medical clearance by hosp service.
Podiatry will follow. no wt bearing restrictions per poditry
[2024-07-05 15:59] VITALS: BP 151/65
[2024-07-05 17:26] LABS: Glucose - Point of Care 298 mg/dl (70-99)
[2024-07-05] MEDS: LIPITOR 80 MG PO (17:44)
[2024-07-05] MEDS: NOVOLOG FLEXPEN-LOW RESISTANCE 3 UNITS SC (17:45)
[2024-07-05] MEDS: HEPARIN 5000 UNITS SC (19:51)
[2024-07-05 22:12] LABS: Glucose - Point of Care 363 mg/dl (70-99)
[2024-07-05] MEDS: NOVOLOG FLEXPEN 5 UNITS SC (22:32)
[2024-07-05] MEDS: LANTUS 0.04 UNITS SC (22:32)
[2024-07-05 23:21] VITALS: BP 104/52
[2024-07-06] MEDS: ZOSYN 50 IV ×3 (05:06→17:38)
[2024-07-06 06:00] VITALS: BMI 35.5
[2024-07-06 07:30] VITALS: BP 157/76
[2024-07-06 08:04] LABS: Glucose - Point of Care 193 mg/dl (70-99)
[2024-07-06] MEDS: BUMEX 2 MG PO (08:16)
[2024-07-06] MEDS: VISBIOME 1 CAP PO (08:17)
[2024-07-06] MEDS: HEPARIN 5000 UNITS SC ×2 (08:17→20:28)
[2024-07-06] MEDS: COREG 3.125 MG PO ×2 (08:17→20:27)
[2024-07-06] MEDS: NOVOLOG FLEXPEN-LOW RESISTANCE 1 UNITS SC ×3 (08:42→17:40)
[2024-07-06] MEDS: NOVOLOG FLEXPEN 3 UNITS SC ×3 (08:42→17:41)
[2024-07-06 08:45] LABS: Vancomycin Random 14.8 ug/ml
--- NOTE | 2024-07-06 10:07 | PHA.VAN.FU ---
Vancomycin Assessment / Plan
- Assessment
Renal Function: No New Labs Today (Last SCr from 07/05 = 2.5)
In the past 24 hrs, patient has been: Afebrile
Concomitant Antimicrobials: piperacillin/tazo
- Assessment - Therapeutic Drug Monitoring
Random Level: 14.8 (last dose 2000 mg 07/04/24 14:13)
Calculated half life (H): calculated T/12 between last two levels ~ 79 hr
- Dosing Plan
Continue: dose by random level
Dosing by Level: Hold off on dosing today
- Monitoring Plan
Random Level: 07/07 06
- Follow Up
Pharmacy will continue to follow.
Vancomycin Follow UP
- -
Patient Age: 48
Patient Sex: Female
Vancomycin Day #: 3
Indication: Diabetic Foot
Requesting Provider: Dr. Lainez / Luz
Pertinent Antimicrobial Allergies:
no pertinent antibiotic allergies
Height / Weight:
Height 5 ft 3 in
Actual Weight 90.855 kg
Pertinent Past Medical History: BMI ~34, DM 1, PAD, CKD
- Vital Signs / Lab Results
Temp Pulse Resp BP Pulse Ox
98.3 F 93 16 157/76 93
07/06/24 07:30 07/06/24 08:17 07/06/24 07:30 07/06/24 08:17 07/06/24 07:30
Lab Results - Hematology
07/04/24 07/05/24
12:20 09:15
WBC 6.2 5.4
Lab Results - Chemistry
07/04/24 07/04/24 07/05/24
12:20 14:17 09:15
BUN Cancelled 64 H 60 H
Creatinine Cancelled 2.4 H 2.5 H
Estimated Creat Clear Cancelled
Albumin 2.9 L
Microbiology Results
07/04/24 17:23 MRSA Screen - Final
Nose Staph aureus MRSA
Therapeutic Drug Monitoring
Random Vancomycin 14.8 ug/ml 07/06/24 07:10
[2024-07-06 12:23] LABS: Glucose - Point of Care 161 mg/dl (70-99)
--- NOTE | 2024-07-06 12:56 | W.PN.HOSP.TC ---
Today's Communication/Plan
-
N.p.o. after midnight
Continue holding aspirin Plavix
4 OR tomorrow with podiatry
Continue IV antibiotic
Assessment / Plan
Assessment / Plan
Right diabetic foot infection with osteomyelitis, confirmed on MRI
-Osteomyelitis of shaft of the residual fifth metatarsal
-Will continue vancomycin, dosed per levels, per ID
-Continue Zosyn
-Follow-up blood cultures
-Vascular surgery planning for CT angiogram on 07/08
-Podiatry following, plan for OR for debridement bone culture on 07/07/2024. Hold aspirin Plavix
PAD
-Hold aspirin Plavix
-Continue statin
Type 1 diabetes
-Continue long-acting insulin and sliding scale
-Carb controlled diet
-Accu-Cheks
-Accuchecks 140-180
-A1c 10%
-Will have diabetes PRODUCT COMMUNICATIONS MANAGER evaluate for strict blood glucose control
-Will need outpatient ophthalmology follow-up
CAD
-S/p CABG
-Continue Statin and BB
Chronic HFpEF
-COntinue Bumex and BB
MARYLOU on CKD stage V
-Previously on hemodialysis, per Ms. Diallo was taken off of dialysis 2 months ago
-Baseline creatinine at that time was between 1.5-1.8
-At this time no indication for hemodialysis
-If renal function getting worse will consult nephrology
-Will order a renal bladder ultrasound
Chronic transaminitis
-Stable
Anticipated Discharge: > 48 hours
Subjective/Interval History
-
Date of Service: July 06, 2024
Seen and examined. No new complaints. No acute overnight events.
Understands that she is going to the OR with podiatry tomorrow
Objective Data
-
Vital Signs:
Vital Signs
Temp Pulse Resp BP Pulse Ox
98.3 F 93 16 157/76 93
07/06/24 07:30 07/06/24 08:17 07/06/24 07:30 07/06/24 08:17 07/06/24 07:30
I&O
07/05/24 07/06/24 07/07/24
06:59 06:59 06:59
Intake Total 840 / 840 2680 / 2680
Balance 840 / 840 2680 / 2680
Physical Exam
-
General: Well Developed and Well Nourished
HEENT: Normocephalic and Atraumatic
Respiratory: Clear to Auscultation
Cardiac: Regular Rhythm
GI: Soft, Nontender, Nondistended and Normal Bowel Sounds
Skin: Warm
Neuro: Awake, Alert, Oriented and AO x 3
Psych: Calm
[2024-07-06 15:45] VITALS: BP 109/52
[2024-07-06 17:28] LABS: Glucose - Point of Care 190 mg/dl (70-99)
[2024-07-06] MEDS: LIPITOR 80 MG PO (17:39)
[2024-07-06 22:17] LABS: Glucose - Point of Care 271 mg/dl (70-99)
[2024-07-06] MEDS: LANTUS 0.04 UNITS SC (22:20)
[2024-07-06 23:56] VITALS: BP 128/66
[2024-07-07] VITALS (9 sets, daily range): BP systolic 109–188; BP diastolic 55–87; BMI 35.6
[2024-07-07] MEDS: ZOSYN 50 IV ×5 (00:18→23:52)
--- NOTE | 2024-07-07 02:35 | PTCARENOTE ---
Patient is tentatively on OR schedule with podiatry for debridement of right foot wound per notes from 08/05, no new note form podiatry on 07/06/24 and patient was not made NPO via an order, discussed with patient to not eat or drink anything after
midnight for possible OR on 07/07/24, she verbalized understanding. Will have morning RN f/u. Patient is scheduled for angiogram on 07/08/23.
[2024-07-07 07:08] LABS: Glucose - Point of Care 258 mg/dl (70-99)
--- NOTE | 2024-07-07 07:38 | PN.DE.MGMTRT ---
Insulin Management
- -
07/07/2024 Diabetes Management Consult
Patient admitted 07/04 for R foot wound with foul smelling drainage. PMH HTN, CKD, CHF, diabetes, CVA, s/p R 4th and 5th toe amputation, Guillain barre syndrome. Patient known to me from previous admissions. Prior to admission was taking lantus
4 units @ HS. A1C on admission 10%, cr 2.5, eGFR 23.14.
Patient for OR today, awake alert and oriented able to discuss diabetes care plan.
Glucose has ranged 161 to 298, receiving 3 units novolog AC with low corrective insulin and 4 units lantus @ hs. Will increase HS lantus to 5 units and AC novolog to 5 units after OR.
Diabetes History
- -
Type of Diabetes: 2 requiring insulin
Pre-Admission Diabetes Regimen
Lab Results
Hemoglobin A1c 10.0 % (4.0-5.6) H 07/05/24 13:33
Insulin Pump Settings
IP Diabetes Regimen
07/06/24 07/06/24 07/06/24
08:03 12:22 17:27
POC Glucose 193 H 161 H 190 H
07/06/24 07/07/24
22:15 07:07
POC Glucose 271 H 258 H
Meal type: Dinner
Meal type: Lunch
Meal type: Breakfast
Amount consumed: 80%
Amount consumed: 100%
Amount consumed: Patient refused
Patient Education
[2024-07-07] MEDS: BUMEX 2 MG PO (08:33)
[2024-07-07] MEDS: VISBIOME 1 CAP PO (08:34)
[2024-07-07] MEDS: COREG 3.125 MG PO ×2 (08:34→21:31)
[2024-07-07] MEDS: HEPARIN 5000 UNITS SC ×2 (08:35→21:32)
--- NOTE | 2024-07-07 10:36 | W.PN.ID1 ---
Date of Service
Date of Service: July 07, 2024
Today's Communication
Continue antibiotics. Await surgery.
Assessment / Plan
Right foot osteomyelitis
Right foot SSTI with gangrene
Elevated ESR
CKD stage IV (Hx of HD, but now off)
IDDM (uncontrolled; HbA1c = 10.1 on 02/16/24)
PAD
Functional immunosuppression
Diastolic CHF
Anemia
Hx CVA
Paroxysmal SVT
Hx Guillain-Song� with chronic LLE weakness
Recommendations:
Continue with empiric zosyn; dose adjusted for CKD stage IV
No MRSA recovered from wound. Will discontinue further vancomycin.
For surgery later today. Please send bone culture, and send proximal margin bx to pathology.
Vascular on board. For tentative angiogram Thursday.
Given uncontrolled diabetes, peripheral vascular disease and CKD, patient in an extremely high risk situation for limb loss.
Chief Complaint
-: Other (Right foot wound infection; right fifth metatarsal osteomyelitis)
Subjective / Review of Systems
Patient seen and examined. Reports no significant issues at present.
Vital Signs / Physical Exam
Vital Signs
Vital Signs
Temp Pulse Resp BP Pulse Ox
98.0 F 77 18 151/67 92
07/07/24 08:00 07/07/24 08:34 07/07/24 08:00 07/07/24 08:34 07/07/24 08:00
Physical Exam
Constitutional: No Acute Distress, Comfortable, Chronically Ill and Non-toxic
Eyes: Sclera Anicteric
Pulmonary: Clear and Non Labored
Gastrointestinal: Soft and Non Distended
Skin: Warm and Dry; Negative Rash or Jaundice
Wound: Other (Right foot wound dressed. Decreased malodor.)
Neurological: Awake and Alert
Psychological: Calm
Objective Data
Lab Data
ESR 62 mm/hour (0-20) H 07/04/24 12:20
Estimated Creat Clear 29 ml/min 07/05/24 09:15
Total Bilirubin 0.6 mg/dl (0.2-1.3) 07/05/24 09:15
AST 32 U/L (14-36) 07/05/24 09:15
ALT 40 U/L (0-35) H 07/05/24 09:15
Alkaline Phosphatase 554 U/L (38-126) H 07/05/24 09:15
C-Reactive Protein 10.30 mg/L (0.0-10.00) H 07/04/24 12:20
Most recent labs reviewed.
Micro Results:
07/04/24 17:23 MRSA Screen - Final
Nose Staph aureus MRSA
Wound/abscess/other Cult Final 02/17/2024
Few Klebsiella aerogenes
Few second Enterobacter cloacae
Moderate Enterococcus faecalis
Moderate S aureus-Methicillin Sensitive
Organism 1 Klebsiella aerogenes
Organism 2 Enterobacter cloacae
Organism 3 Enterococcus faecalis
Organism 4 S aureus-Methicillin Sensitive
KLEAER E.CLOACAE ENTFCL
M.I.C. RX M.I.C. RX M.I.C. RX
--------- --- --------- --- --------- ---
Amoxicillin/Potas. Clavulanate 16/8 R >16/8 R
Ampicillin >16 R >16 R <=2 S
Ampicillin/Sulbactam 8/4 R 8/4 R
Aztreonam <=4 S <=4 S
Cefazolin 8 R >16 R
Cefepime <=2 S <=2 S
Ceftazidime <=1 S <=1 S
Ceftriaxone <=1 S <=1 S
Clindamycin
Ertapenem <=0.5 S <=0.5 S
Ciprofloxacin <=0.25 S <=0.25 S <=1 S
Gentamicin <=2 S <=2 S
Gentamicin Synergy Screen <=500 S
Erythromycin
Levofloxacin
Oxacillin
Meropenem <=1 S <=1 S
Piperacillin/Tazobactam <=8 S <=8 S
Tetracycline <=4 S <=4 S
Tobramycin <=2 S <=2 S
Trimethoprim/Sulfamethoxazole <=2/38 S <=2/38 S
Vancomycin 2 S
MSSA
M.I.C. RX
--------- ---
Amoxicillin/Potas. Clavulanate <=4/2 S
Ampicillin >8 R
Ampicillin/Sulbactam
Aztreonam
Cefazolin
Cefepime
Ceftazidime
Ceftriaxone
Clindamycin <=0.5 S
Ertapenem
Ciprofloxacin
Gentamicin <=4 S
Gentamicin Synergy Screen
Erythromycin <=0.5 S
Levofloxacin <=1 S
Oxacillin 0.5 S
Meropenem
Piperacillin/Tazobactam
Tetracycline <=4 S
Tobramycin
Trimethoprim/Sulfamethoxazole <=0.5/9.5 S
Vancomycin 1 S
Imaging:
07/05/2024 MRI right lower extremity: Postoperative changes of fourth and fifth partial ray amputation. There are findings of infection and soft tissue defect along the residual lateral soft tissues of the foot. There is associated underlying acute
osteomyelitis of the shaft of the residual fifth metatarsal.
07/04/2024 X-ray right foot: Cortical irregularity with bone loss at the level of the osteotomy site the right fifth metatarsal in the interval since most recent prior radiograph, at least suspicious for osteomyelitis.
[2024-07-07 11:12] LABS: Hemoglobin 11.5 g/dL (12.0-16.0); Mean Corp Hgb Conc. 31.1 g/dL (33.0-37.0); Mean Corpuscular Volume 83.7 fL (81.0-99.0); Mean Platelet Volume 9.8 fL (7.4-10.4); Platelet Count 257 10^3/uL (130-400); Red Blood Cell Count 4.42 10^6/uL (4.20-5.40); Red Cell Dist. Width 19.8 % (11.5-14.5); White Blood Cell Count 6.3 10^3/uL (4.8-10.8)
[2024-07-07 11:23] LABS: Blood Urea Nitrogen 68 mg/dl (7-17); Calcium 8.6 mg/dl (8.4-10.2); Carbon Dioxide 27 mmol/L (22-30); Chloride 100 mmol/L (98-107); Estimated Creatinine Clearance 20 ml/min; Glucose 255 mg/dl (70-99); Potassium 4.8 mmol/L (3.5-5.1); Sodium 134 mmol/L (135-145); eGFR 14.94
[2024-07-07 11:25] LABS: Vancomycin Random 13.4 ug/ml
[2024-07-07 12:03] LABS: Glucose - Point of Care 218 mg/dl (70-99)
[2024-07-07] MEDS: NOVOLOG FLEXPEN-LOW RESISTANCE 2 UNITS SC ×2 (12:39→17:39)
--- NOTE | 2024-07-07 13:32 | W.PN.HOSP.TC ---
Today's Communication/Plan
-
Assessment / Plan
Assessment / Plan
Right diabetic foot infection with osteomyelitis, confirmed on MRI
-Osteomyelitis of shaft of the residual fifth metatarsal
-Will continue vancomycin, dosed per levels, per ID
-Continue Zosyn
-Vascular surgery planning for CT angiogram on 07/08
-Podiatry following, plan for OR for debridement bone culture on 07/07/2024. Hold aspirin Plavix
PAD
-Hold aspirin Plavix
-Continue statin
Type 1 diabetes
-Continue long-acting insulin and sliding scale
-Carb controlled diet
-Accu-Cheks
-Accuchecks 140-180
-A1c 10%
-Will have diabetes CORPORATE QUALITY MANAGER evaluate for strict blood glucose control
-Will need outpatient ophthalmology follow-up
CAD
-S/p CABG
-Continue Statin and BB
Chronic HFpEF
-COntinue Bumex and BB
MARYLOU on CKD stage V
-Previously on hemodialysis, per Ms. Diallo was taken off of dialysis 2 months ago
-Baseline creatinine at that time was between 1.5-1.8
-At this time no indication for hemodialysis
-If renal function getting worse will consult nephrology
-Will order a renal bladder ultrasound
Chronic transaminitis
-Stable
Anticipated Discharge: > 48 hours
Subjective/Interval History
-
Date of Service: July 07, 2024
seen and exmained. no new complaints. no acute ovenright events
Objective Data
-
Labs:
Laboratory Results
07/07/24
10:41
WBC 6.3
Hgb 11.5 L
Hct 37.0
Plt Count 257
Sodium 134 L
Potassium 4.8
Chloride 100
Carbon Dioxide 27
BUN 68 H
Creatinine 3.6 H
Glucose 255 H
Calcium 8.6
Vital Signs:
Vital Signs
Temp Pulse Resp BP Pulse Ox
98.0 F 77 18 151/67 92
07/07/24 08:00 07/07/24 08:34 07/07/24 08:00 07/07/24 08:34 07/07/24 09:10
I&O
07/06/24 07/07/24 07/08/24
06:59 06:59 06:59
Intake Total 2680 / 2680 910 / 910
Balance 2680 / 2680 910 / 910
Physical Exam
-
General: Well Developed, Well Nourished and No Apparent Distress
HEENT: Normocephalic and Atraumatic
Respiratory: Clear to Auscultation
Cardiac: Regular Rhythm and S1/S2
GI: Soft, Nontender, Nondistended and Normal Bowel Sounds
Skin: Warm
Neuro: Awake, Alert, Oriented and AO x 3
Psych: Calm
--- NOTE | 2024-07-07 14:47 | CM ---
Reviewed the chart notes. RT foot debridement and bone resection on schedule for today. CM continues to be available to patient/family and is monitoring medical plan for needs at discharge.
Plan: Discharge plans will depend on the patient's progress.
[2024-07-07 14:55] LABS: Glucose - Point of Care 206 mg/dl (70-99)
[2024-07-07 15:58] LABS: Glucose - Point of Care 202 mg/dl (70-99)
--- NOTE | 2024-07-07 15:58 | W.SUR.POST ---
Surgical Immediate Post Op
Note
Pre Op Diagnosis: Right 5th metatarsal osteomyelitis
Post Op Diagnosis: Same as above
Procedure Performed: Debridement and bone resection form Rt 5th metatarsal
Primary Surgeon: Dr. Casey DP
Secondary Surgeons: None
Anesthesia: MAC with local block
Estimated Blood Loss: 3 cc's
Fluids: None
Drains/Shunts: No
Specimens/Cultures: Aerobic and anaerobic culture , bone sent from Rt 5th metatarsal sent for pathology and microbiology
Doppler/Duplex/Angio (Y/N): No
Complications: None
Operative Findings: Some healthy bleeding noted, no deep tissue purulence noted. Patient stable in PACU with inatct vascular status to Rt foot and stable vital signs
--- NOTE | 2024-07-07 16:58 | PTCARENOTE ---
CHD wipes done prior to OR-- bracelets placed inside table where mirror is for safe keeping-- pt was in room when placed there
[2024-07-07 17:38] LABS: Glucose - Point of Care 211 mg/dl (70-99)
[2024-07-07] MEDS: NOVOLOG FLEXPEN 4 UNITS SC (17:38)
[2024-07-07] MEDS: LIPITOR 80 MG PO (17:38)
[2024-07-07 23:34] LABS: Glucose - Point of Care 282 mg/dl (70-99)
[2024-07-07] MEDS: LANTUS 0.05 UNITS SC (23:34)
[2024-07-07] MEDS: NOVOLOG FLEXPEN-LOW RESISTANCE 3 UNITS SC (23:35)
[2024-07-07] MEDS: NOVOLOG FLEXPEN SC (23:52)
[2024-07-08] VITALS (13 sets, daily range): BP systolic 126–194; BP diastolic 62–83; BMI 35.7
[2024-07-08 06:23] LABS: Glucose - Point of Care 299 mg/dl (70-99)
[2024-07-08] MEDS: NOVOLOG FLEXPEN SC ×3 (06:25→20:01)
[2024-07-08] MEDS: ZOSYN 50 IV ×2 (06:27→18:00)
[2024-07-08] MEDS: NOVOLOG FLEXPEN-LOW RESISTANCE 3 UNITS SC (06:28)
--- NOTE | 2024-07-08 07:02 | PN.DE.MGMTRT ---
Insulin Management
- -
07/08/2024 Diabetes Management Consult Follow up
Patient admitted 07/04 for R foot wound with foul smelling drainage. PMH HTN, CKD, CHF, diabetes, CVA, s/p R 4th and 5th toe amputation, Guillain barre syndrome. Patient known to me from previous admissions. Prior to admission was taking lantus
4 units @ HS. A1C on admission 10%, cr 2.5, eGFR 23.14.
Cr 4.1, eGFR 12.78.
s/p OR for debridement R foot wound, POD 1 for further testing today, awake alert and oriented able to discuss diabetes care plan.
Glucose has ranged 211 to 299, receiving 4 units novolog AC with low corrective insulin and 4 units lantus @ hs. Will increase HS lantus to 6 units. AC novolog was changed to Q 6 hours, should not be given unless patient is eating, will increase
to 6 units after testing.
Discussed with nurse.
Diabetes History
- -
Type of Diabetes: 2 requiring insulin
Pre-Admission Diabetes Regimen
07/07/24
10:41
Creatinine 3.6 H
Lab Results
Hemoglobin A1c 10.0 % (4.0-5.6) H 07/05/24 13:33
Insulin Pump Settings
IP Diabetes Regimen
07/07/24 07/07/24 07/07/24
07:07 10:41 12:01
Glucose 255 H
POC Glucose 258 H 218 H
07/07/24 07/07/24 07/07/24
14:54 15:56 17:37
Glucose
POC Glucose 206 H 202 H 211 H
07/07/24 07/08/24
23:33 06:22
Glucose
POC Glucose 282 H 299 H
Meal type: Lunch
Meal type: Breakfast
Patient Education
--- NOTE | 2024-07-08 07:55 | W.SUR.PREOP ---
Pre-Operative Surgical Note
-
I have examined this patient prior to the performance of the scheduled procedure.
The patient's condition is unchanged from the time of the current History and
Physical and the patient is able to undergo the scheduled procedure.
OR today for angio/possible endo intervention
Memo Whitmore III, MD
[facility] Vascular Surgery
[phone] ([phone])
[2024-07-08 08:27] LABS: Hematocrit 38.1 % (37.0-47.0); Hemoglobin 11.7 g/dL (12.0-16.0); Mean Corp Hgb Conc. 30.7 g/dL (33.0-37.0); Mean Corpuscular Hgb 25.8 pg (27.0-31.0); Mean Corpuscular Volume 84.1 fL (81.0-99.0); Mean Platelet Volume 9.5 fL (7.4-10.4); Platelet Count 253 10^3/uL (130-400); Red Blood Cell Count 4.53 10^6/uL (4.20-5.40); White Blood Cell Count 7.8 10^3/uL (4.8-10.8)
[2024-07-08] MEDS: BUMEX 2 MG PO (08:31)
[2024-07-08] MEDS: VISBIOME 1 CAP PO (08:31)
[2024-07-08] MEDS: HEPARIN 5000 UNITS SC ×2 (08:31→22:57)
[2024-07-08] MEDS: COREG 3.125 MG PO ×2 (08:31→22:57)
[2024-07-08 08:54] LABS: ALT (SGPT) 32 U/L (0-35); AST (SGOT) 38 U/L (14-36); Albumin 2.9 g/dl (3.5-5.0); Alkaline Phosphatase 516 U/L (38-126); Blood Urea Nitrogen 74 mg/dl (7-17); Calcium 8.5 mg/dl (8.4-10.2); Carbon Dioxide 24 mmol/L (22-30); Chloride 101 mmol/L (98-107); Estimated Creatinine Clearance 18 ml/min; Glucose 286 mg/dl (70-99); Potassium 5.1 mmol/L (3.5-5.1); Sodium 136 mmol/L (135-145); Total Bilirubin 0.4 mg/dl (0.2-1.3); Total Protein 6.7 g/dl (6.3-8.2); eGFR 12.78
--- NOTE | 2024-07-08 10:18 | CM ---
Reviewed the chart notes. Per notes, OR today for angio/possible endo intervention. CM continues to be available to patient/family and is monitoring medical plan for needs at discharge.
Plan: Discharge plans will depend on the patient's progress.
--- NOTE | 2024-07-08 11:24 | PN.CDI ---
CDI
- -
CDI:
Physician Documentation Request
Admit Date: 07/04/24 14:14
Dear Doctor Severino,
Please review the following and provide your response in the progress notes.
Clinical Indicators:
Podiatry consult, 07/05
#Rt foot infected diabetic foot ulcer
#Osteomyelitis Rt 5th metatarsal
#Diabetic vascular disease
PN, 07/07
#Right diabetic foot infection with osteomyelitis, confirmed on MRI
#...-Osteomyelitis of shaft of the residual fifth metatarsal
#...-Will continue vancomycin, dosed per levels, per ID
#...-Vascular surgery planning for CT angiogram on 07/08
#PAD
#...-Hold aspirin Plavix
#..-Continue statin
Based on the above and your clinical assessment, please clarify the etiology of the right foot osteomyelitis:
Multifactorial, diabetes and PAD
Diabetic foot infection only
PAD only
Other(please specify)
Use of terms such as suspected, likely, concern for, or probable (associated with a specific diagnosis that is being evaluated, monitored, or treated as if it exists) are acceptable and can be coded in the inpatient setting, when documented at the
time of discharge.
Thank you,
Christa Robles RN BSN CCDS
CDI Specialist
please contact via tiger text
Please use your independent medical judgment in providing your response.
[2024-07-08 11:56] LABS: Urine Albumin 2+ (Neg - Trace); Urine Bilirubin Negative (Negative); Urine Character Clear (Clear); Urine Color Yellow; Urine Glucose Trace (Negative); Urine Ketone Negative (Negative); Urine Leukocyte Negative (Negative); Urine Nitrite Negative (Negative); Urine Occult Blood Negative (Negative); Urine Specific Gravity 1.015 (<1.030); Urine Urobilinogen Negative (Neg - 1+)
[2024-07-08 12:14] LABS: Urine Squamous Cell 0-2 /LPF (Few)
[2024-07-08 12:15] LABS: Urine Granular Cast 0-2 /LPF (0); Urine Hyaline Cast 0-2 /LPF (0-2); Urine Red Blood Cell 0-2 /HPF (0-2)
[2024-07-08 12:16] LABS: Urine Bacteria Few (Negative)
[2024-07-08 12:38] LABS: Urine Protein 323 mg/dl (0-12)
[2024-07-08 12:58] LABS: Glucose - Point of Care 226 mg/dl (70-99)
--- NOTE | 2024-07-08 14:41 | W.PN.HOSP.TC ---
Addendum entered and electronically signed by Kamaljit Haq MD 07/08/24 18:26:
Multifactorial, diabetes and PAD
Original Note:
Today's Communication/Plan
-
Assessment / Plan
Assessment / Plan
Right diabetic foot infection with osteomyelitis, confirmed on MRI
-Osteomyelitis of shaft of the residual fifth metatarsal
-Will continue vancomycin, dosed per levels, per ID
-Continue Zosyn
-Vascular surgery planning for CT angiogram on 07/08
-Podiatry following, s/p debridement and bone culture
PAD
-Hold aspirin Plavix
-Continue statin
Type 1 diabetes
-Continue long-acting insulin and sliding scale
-Carb controlled diet
-Accu-Cheks
-Accuchecks 140-180
-A1c 10%
-Will have diabetes LICENSED NUCLEAR CONTROL ROOM OPERATOR evaluate for strict blood glucose control
-Will need outpatient ophthalmology follow-up
CAD
-S/p CABG
-Continue Statin and BB
Chronic HFpEF
-COntinue Bumex and BB
MARYLOU on CKD stage V
-Progressively getting worse
-Nonoliguric at this time
-K5.1
-Check urine creatinine protein urine analysis
-Consult nephrology
-Bladder scan
-Avoid nephrotoxins hypotension
-Expect function to get worse as plan for CT angiogram today
Chronic transaminitis
-Stable
Anticipated Discharge: 24 - 48 hours
Subjective/Interval History
-
Date of Service: July 08, 2024
Seen and examined.
C/she is upset that her kidney function is getting worse. States that whenever she gets hospitalized she always requires dialysis.
Objective Data
-
Labs:
Laboratory Results
07/08/24
07:56
WBC 7.8
Hgb 11.7 L
Hct 38.1
Plt Count 253
Sodium 136
Potassium 5.1
Chloride 101
Carbon Dioxide 24
BUN 74 H
Creatinine 4.1 H*
Glucose 286 H
Calcium 8.5
Total Bilirubin 0.4
AST 38 H
ALT 32
Alkaline Phosphatase 516 H
Vital Signs:
Vital Signs
Temp Pulse Resp BP Pulse Ox
98.5 F 87 18 145/68 97
07/08/24 07:45 07/08/24 08:31 07/08/24 07:45 07/08/24 08:31 07/08/24 07:45
I&O
07/07/24 07/08/24 07/09/24
06:59 06:59 06:59
Intake Total 910 / 910 400 / 400
Balance 910 / 910 400 / 400
Physical Exam
-
General: Well Developed and Well Nourished
HEENT: Normocephalic and Atraumatic
Respiratory: Clear to Auscultation
Cardiac: Regular Rhythm
GI: Soft, Nontender, Nondistended and Normal Bowel Sounds
Skin: Warm
Neuro: Awake, Alert, Oriented and AO x 3
Psych: Calm
[2024-07-08 15:37] LABS: Glucose - Point of Care 222 mg/dl (70-99)
[2024-07-08] MEDS: NOVOLOG vial 2 UNITS SC (15:50)
[2024-07-08] MEDS: SODIUM BICARBONATE 1150 MEQ IV (15:50)
[2024-07-08] MEDS: PLAVIX 75 MG PO (16:09)
[2024-07-08] MEDS: LOW STRENGTH ASPIRIN 81 MG PO (16:09)
--- NOTE | 2024-07-08 16:12 | OR.RPT ---
Operative Report
Operative Report
Date of Operation: 07/08/2024
Pre Op Diagnosis:
1. Peripheral arterial disease with right lateral foot wound, nonhealing
2. Osteomyelitis right foot
3. Poorly controlled diabetes with peripheral arterial occlusive disease
4. Chronic kidney disease
5. Medical noncompliance
Post Op Diagnosis:
1. Peripheral arterial disease with right lateral foot wound, nonhealing
2. Osteomyelitis right foot
3. Poorly controlled diabetes with peripheral arterial occlusive disease
4. Chronic kidney disease
5. Medical noncompliance
Procedure:
1.) Balloon angioplasty and drug-eluting stent to right distal posterior tibial artery (2.5 mm x 38 mm Juan Burleigh coronary stent)
2.) Balloon angioplasty to right plantar artery (2.5 mm angioplasty balloon)
3.) Balloon angioplasty of pedal arch (2.5 mm angioplasty balloon)
4.) Retrograde balloon angioplasty of dorsalis pedis artery (2.5 mm angioplasty balloon) via pedal arch from posterior tibial artery
5.) Diagnostic aortobiiliac arteriogram
6.) Diagnostic right lower extremity arteriogram
7.) Ultrasound-guided percutaneous access to the left common femoral artery
Surgeon: Memo Whitmore III, MD
Immigration Lawyer: Trevor Calix MD PGY1
Anesthesia: Sedation with local
Fluoroscopy:
33 min
193 mGy
53.37 Gy.cm2
Complications: None
Estimated Blood Loss: 10 cc
History and Indications for Procedure: 48-year-old female with chronic limb threatening ischemia of the right foot manifested by nonhealing wound and associated osteomyelitis. She was brought to the operating room for an arteriogram and possible
endovascular intervention
Procedure in Detail: Shea Kent was correctly identified and placed supine on the operating table. After adequate induction of anesthesia the bilateral groins were prepped and draped in the usual sterile fashion. A timeout was performed
with the nursing and anesthesia staff confirming the patient's identity as well as the nature and laterality of the procedure.
The left common femoral artery was identified under ultrasound guidance. The artery was patent. The superior and inferior aspects of the femoral head were identified with radiographic guidance and marked at the skin level. The proposed puncture site
was infiltrated with local anesthesia. Under ultrasound guidance we accessed the left common femoral artery with a micropuncture needle and upsized to a 5 Fr sheath over a [employer]sh[employer] wire. The wire and a [employer] hook flush catheter were advanced into
the distal abdominal aorta and a diagnostic aorto-biiliac arteriogram was performed with CO2:
AORTO-ILIAC ARTERIOGRAM:
Aorta: Patent with no stenosis identified
Right common iliac artery: Patent with no stenosis identified
Right external iliac artery: Patent with no stenosis identified
Left common iliac artery: Patent with no stenosis identified
Left external iliac artery: Patent with no stenosis identified
Under roadmap guidance using a Glidewire and the Shepherds hook catheter we selected the right common iliac artery and then the external iliac artery. A catheter was tracked up and over the aortic bifurcation and placed in the distal external iliac
artery. A diagnostic right lower extremity arteriogram was then performed with CO2 and 1/4 strength contrast which demonstrated the following:
RIGHT LOWER EXTREMITY:
Common femoral artery: Patent with no stenosis identified
Profunda femoral artery: Patent with no stenosis identified
Superficial femoral artery: Patent. Mild stenosis identified at the origin and proximal segment.
Popliteal artery: Patent. Mild areas of stenosis in the above-knee popliteal artery and behind the knee. Below-knee popliteal artery patent with no stenosis identified
Anterior tibial artery: Patent. Appears to occlude at the ankle. Dorsalis pedis is occluded
Tibioperoneal trunk: Patent
Peroneal artery: Patent to the ankle
Posterior tibial artery: Diminutive. Areas of focal occlusion identified. Severe small vessel disease in the foot.
ENDOVASCULAR INTERVENTION: Systemic heparin was administered. Selected the superficial femoral artery with the catheter and Glidewire. Exchanged out for a 5 Fr 70 cm sheath over a Storq wire. Sheath tip was advanced to the above-knee popliteal
artery. Selected the posterior tibial artery under roadmap guidance with Quickcross catheter and glidewire. The entire posterior tibial artery was crossed with a Quickcross and Glidewire. The wire and catheter were advanced into the distal
posterior tibial artery and subtraction angio confirmed proper position in the true lumen. Exchanged out for a [address] [place] [address] wire. Under roadmap guidance the wire was advanced through the patent plantar branch in the foot, around the pedal arch
and retrograde through the dorsalis pedis artery into the distal anterior tibial artery.
A 2 mm x 150 mm angioplasty balloon was advanced into the distal aspect of the plantar branch. This balloon was inflated to nominal pressure across the plantar branch and distal posterior tibial artery and held in place for 2 minutes. The same
balloon was then used to perform angioplasty on the entire length of posterior tibial artery back to the origin, holding each inflation at nominal pressure for 2 minutes. Subsequent arteriogram demonstrated an improved but suboptimal result.
Residual disease was identified in the foot. I was then able to advance a 2.5 mm angioplasty balloon over the 014 wire, retrograde across the pedal arch and into the dorsalis pedis artery. I performed balloon angioplasty on the dorsalis pedis
artery, pedal arch and plantar branch using the 2.5 mm x 120 mm angioplasty balloon. The 2.5 mm angioplasty balloon was also used to treat the length of the posterior tibial artery back to its origin. Subsequent arteriogram demonstrated a
significantly improved result but there was an area of contrast extravasation at the level of the calcaneus at the ankle. I then brought the 2.5 mm balloon back into position and did a prolonged balloon inflation at nominal pressure for 5 minutes.
Subsequent arteriogram demonstrated significant improvement in this area however some luminal irregularities still existed. I then treated this area with a 2.5 mm x 38 mm Juan Burleigh stent. The stent was positioned in the desired location and
the balloon inflated to nominal pressure. This was held in place for an additional 4 minutes.
COMPLETION ARTERIOGRAM: Good technical result. Patent anterior tibial artery and dorsalis pedis artery. Patent peroneal artery. Patent posterior tibial artery with flow through the distal stent and into the plantar artery outflow which was
previously occluded. No extravasation was identified on completion imaging from the posterior tibial artery. Improved flow to the lateral aspect of the foot compared to pretreatment.
Satisfied with this result we concluded the procedure. The sheath tip was pulled back into the left external iliac artery. Protamine was administered.
The patient tolerated the procedure well and was taken to the recovery area in stable condition.
Attestation: I was present and responsible for the entire procedure.
Signed:
Memo Whitmore III, MD
[facility] Vascular Surgery
[phone] ([email or web address])
[2024-07-08] MEDS: NOVOLOG FLEXPEN-LOW RESISTANCE SC ×2 (17:08→20:01)
[2024-07-08] MEDS: ZOSYN IV (17:13)
--- NOTE | 2024-07-08 17:20 | W.CON.NEPH ---
Consultation
-
Date/Time Consultation Requested: 07/08/24 1:00 PM
Date/Time Consultation Performed: July 08, 2024 5:00 PM
Requesting Provider: Dr. Haq
Performing Provider: Dr. Villegas
Reason for Consultation: Acute kidney injury\\CKD stage 4
Medical History
-
Chief Complaint: Acute kidney injury
History of Present Illness:
48-year-old female past medical history of right diabetic foot infection status post fifth toe amputation, peripheral arterial disease, ESRD on hemodialysis Thursday and Thursday at [facility] which was stopped 2 month ago, diastolic CHF,
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 Nephrology was consulted for acute kidney injury as her creatinine has escalated from 2.4 on admission up to 4.2 today the patient also
underwent angiogram today with stent placement of the right lower extremity for her peripheral vascular disease and nonhealing right foot wound.
Past Medical History
right diabetic foot infection status post fifth toe amputation, peripheral arterial disease, ESRD on hemodialysis Thursday and Thursday (stopped 2 months earlier), diastolic CHF, presumed type I diabetes, iron deficiency anemia, CVA, paroxysmal SVT,
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
Past Surgical History: Tonsilectomy (Eye surgery Open heart surgery as a child) and Other (right foot amputation of Toes)
Social History
Tobacco: Non-Smoker
Alcohol: Former
Drug: None
Personal: Single
Employment: Disabled
Family History
MOther side family with HTN, DM and ESRD On dialysis
Allergies / Home Medications
Allergy/AdvReac Type Severity Reaction Status Date / Time
latex Allergy Hives Verified 07/04/24 11:33
�Medication �Instructions �Recorded �Confirmed �Type
aspirin 81 mg tablet,delayed 81 mg PO DAILY Blood Clot 05/04/23 07/04/24 Rx
release Prevention/Tx #30 tabs
Lactobac no.2-Bifidobac no.1-S. 1 cap PO DAILY probiotic 02/15/24 07/04/24 History
thermo 112.5 billion cell capsule
(Visbiome)
ergocalciferol (vitamin D2) 1,250 1,250 mcg PO HANSON Supplement 02/15/24 07/04/24 History
mcg (50,000 unit) capsule
insulin aspart U-100 100 unit/mL 3 unit SC AC Diabetes 02/16/24 07/04/24 History
(3 mL) subcutaneous pen
clopidogrel 75 mg tablet 75 mg PO DAILY Blood clot 02/20/24 07/04/24 Rx
prevention/tx #30 tabs
atorvastatin 40 mg tablet 80 mg PO QPM High Cholesterol 07/04/24 07/04/24 History
bumetanide 2 mg tablet 2 mg PO DAILY Fluid 07/04/24 07/04/24 History
Retention/Swelling
carvedilol 3.125 mg tablet (Coreg) 3.125 mg PO BID Blood Pressure 07/04/24 07/04/24 History
insulin glargine 100 unit/mL (3 4 unit SC HS Diabetes 07/04/24 07/04/24 History
mL) subcutaneous pen (Lantus
Solostar U-100 Insulin)
Review of Systems
-
History Source: Patient
All other systems: Negative unless noted
Constitutional: Weight Gain (24 pound weight gain since February 2024)
EENT: No Symptoms
Respiratory: No Symptoms
Cardiac: No Symptoms
Musculoskeletal: Edema (+1 to +2 central edema)
Skin: Other (Bilateral lower extremity foot wounds)
Physical Exam
Vital Signs
Vital Signs
Temp Pulse Resp BP Pulse Ox
97.1 F 68 16 169/67 90
07/08/24 16:45 01/03/25 16:46 07/08/24 16:46 07/08/24 16:46 07/08/24 16:46
Lab Results
07/08/24 07:56
07/08/24 07:56
WBC 7.8 10^3/uL (4.8-10.8) 07/08/24 07:56
RBC 4.53 10^6/uL (4.20-5.40) 07/08/24 07:56
Hgb 11.7 g/dL (12.0-16.0) L 07/08/24 07:56
Hct 38.1 % (37.0-47.0) 07/08/24 07:56
Plt Count 253 10^3/uL (130-400) 07/08/24 07:56
Sodium 136 mmol/L (135-145) 07/08/24 07:56
Potassium 5.1 mmol/L (3.5-5.1) 07/08/24 07:56
Chloride 101 mmol/L (98-107) 07/08/24 07:56
Carbon Dioxide 24 mmol/L (22-30) 07/08/24 07:56
BUN 74 mg/dl (7-17) H 07/08/24 07:56
Creatinine 4.1 mg/dL (0.6-1.0) H* 07/08/24 07:56
eGFR 12.78 07/08/24 07:56
Glucose 286 mg/dl (70-99) H 07/08/24 07:56
Calcium 8.5 mg/dl (8.4-10.2) 07/08/24 07:56
Albumin 2.9 g/dl (3.5-5.0) L 07/08/24 07:56
Physical Exam
General: AOx3
HEENT: PERRL, EOMI, Anicteric, Conjunctivae Clear, Ear/Nose Intact, Hearing Normal, Neck Supple, No JVD and No Thyromegaly
Respiratory: Other (Coarse breath sounds)
Cardiac: S1/S2 (Regular with occasional ectopy) and Regular Rate/Rhythm
Breast: Deferred by me
Abdomen: Soft, Nontender and Normal Bowel Sounds
Rectal: Deferred by Provider
Musculoskeletal: Other (2+ central edema)
Skin: Warm, Dry and Other (Bilateral lower feet wounds)
Neuro: Other (Decrease neuro sensorium in the lower extremities)
Hematologic/Lymphatic: No Cervical Lymphadenopathy, No Submandibular Lymphadenopathy and No Supraclavicular Lymphadenopathy
Psych: Other (Flat affect but oriented)
Data Reviewed
-
Labs: Labs Reviewed by me
Old Records: Reviewed (Reviewed previous nephrology consult from February 2024)
Assessment/Plan
-
Impression:
MARYLOU/CKD 4 (previously dialysis dependent up until 8 weeks ago)
Open wound/diabetic foot infection of right lateral foot possible osteomyelitis status post angiogram with stent placement on 07/08/2024
History of right diabetic foot infection status post fifth toe amputation on 12/06 and revision fourth toe amputation on 12/13
Peripheral arterial disease status post diagnostic arteriogram, intravascular lithotripsy of the posterior tibial artery and proximal SFA, balloon angioplasty and nitroglycerin injection of posterior tibial artery on 12/21/23
Chronic transaminitis
Type 1 diabetes
ESRD on hemodialysis Thursday and Thursday (stopped two months prior)
Chronic HFpEF
chronic anemia
Moderate aortic stenosis/aortic regurgitation
Mild to moderate mitral stenosis
Paroxysmal SVT
Iron deficiency anemia
History of CVA
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
PLan:
MARYLOU:
-Likely exacerbated by underlying infection possible antibiotic administration and now likely to be further exacerbated in the setting of contrast administration following a gram and stent placement today of right lower extremity
-I explained to the patient that she will likely require dialysis within the next 24 to 48 hours. The patient states that she does not want dialysis again. I did explain to her that she was not doing well as an outpatient as she has had a 25 pound
weight gain likely due to her sodium avid state in the setting of her advanced diabetic nephropathy and being off dialysis is likely not been beneficial for her
-She was not agreeable to dialysis at this time, I did explain to her the possible risk of if her acute renal failure exacerbates and she does not pursue dialysis
-Discussions will be held again over the weekend and IR has not been consulted at this time for catheter placement
-I would also have a low threshold for Whitmore catheter placement given her higher postvoid bladder scan residuals
-Contrast prophylaxis was provided with sodium bicarb and IV fluids
-Daily BMP and accurate I's and O's and weights to be recorded
--- NOTE | 2024-07-08 17:30 | PTCARENOTE ---
Received patient back from PACU s/p angiogram. Patient appears comfortable, is lying flat as per protocol. Has sodium bicarb running at 90cc/hr. Positive posterior tibial pulses bilateral on doppler. Pressure dressing on L groin CDI no hematoma.
VSS.
--- NOTE | 2024-07-08 17:34 | W.PN.ID1 ---
Date of Service
Date of Service: July 08, 2024
Today's Communication
Continue antibiotics.
Assessment / Plan
Right foot osteomyelitis
- Recovered K. aerogenes, E. cloacae, E. faecalis, MSSA
Right foot SSTI with gangrene
- s/p debridement and bone resection form Rt 5th metatarsal (07/07/24)
Elevated ESR
CKD stage IV (Hx of prior HD, but now off)
IDDM (uncontrolled; HbA1c = 10.1 on 02/16/24, 10.0 on 07/05/24)
PAD
Functional immunosuppression
Diastolic CHF
Anemia
Hx CVA
Paroxysmal SVT
Hx Guillain-Song� with chronic LLE weakness
Recommendations:
Continue with empiric zosyn; dose adjusted for CKD stage IV
S/P right foot revision yesterday. S/P angiography, angioplasty and stent placement.
Cr. noted to be rising, and patient may ultimately require resumption of HD. She reports that she does not want to be back on HD.
Given uncontrolled diabetes, peripheral vascular disease and CKD, patient in an extremely high risk situation for limb loss.
Chief Complaint
-: Other (Right foot wound infection; right fifth metatarsal osteomyelitis)
Subjective / Review of Systems
Patient seen and examined. Underwent right lower extremity angiography, angioplasty and stent placement earlier today. Currently just back from the OR.
Vital Signs / Physical Exam
Vital Signs
Vital Signs
Temp Pulse Resp BP Pulse Ox
97.1 F 68 16 169/67 90
07/08/24 16:45 07/08/24 16:46 07/08/24 16:46 07/08/24 16:46 07/08/24 16:46
Physical Exam
Constitutional: Comfortable, Chronically Ill and Non-toxic
Eyes: Sclera Anicteric
Cardiovascular: S1/S2; Negative S3/S4
Pulmonary: Clear and Non Labored
Gastrointestinal: Soft and Non Distended
Skin: Warm and Dry; Negative Rash or Jaundice
Wound: Other (Right foot dressed. No malodor.)
Neurological: Awake
Psychological: Calm
Objective Data
Lab Data
Lab Results
07/08/24 07:56
07/08/24 07:56
ESR 62 mm/hour (0-20) H 07/04/24 12:20
Estimated Creat Clear 18 ml/min 07/08/24 07:56
Total Bilirubin 0.4 mg/dl (0.2-1.3) 07/08/24 07:56
AST 38 U/L (14-36) H 07/08/24 07:56
ALT 32 U/L (0-35) 07/08/24 07:56
Alkaline Phosphatase 516 U/L (38-126) H 07/08/24 07:56
C-Reactive Protein 10.30 mg/L (0.0-10.00) H 07/04/24 12:20
Most recent labs reviewed.
Micro Results:
07/07/24 15:25 Tissue Culture - Pending
Toe Gram Stain - Preliminary
07/08/24 03:15 C. difficile GDH Antigen & Toxins - Final
Feces/Stool Negative for toxigenic C.difficile
- Final
Negative for Norovirus GI and GII.
07/07/24 15:25 Wound Culture - Pending
Foot - Right Gram Stain - Preliminary
07/07/24 15:25 Anaerobic Culture - Pending
Foot - Right
07/04/24 17:23 MRSA Screen - Final
Nose Staph aureus MRSA
Wound/abscess/other Cult Final 02/17/2024
Few Klebsiella aerogenes
Few second Enterobacter cloacae
Moderate Enterococcus faecalis
Moderate S aureus-Methicillin Sensitive
Organism 1 Klebsiella aerogenes
Organism 2 Enterobacter cloacae
Organism 3 Enterococcus faecalis
Organism 4 S aureus-Methicillin Sensitive
KLEAER E.CLOACAE ENTFCL
M.I.C. RX M.I.C. RX M.I.C. RX
--------- --- --------- --- --------- ---
Amoxicillin/Potas. Clavulanate 16/8 R >16/8 R
Ampicillin >16 R >16 R <=2 S
Ampicillin/Sulbactam 8/4 R 8/4 R
Aztreonam <=4 S <=4 S
Cefazolin 8 R >16 R
Cefepime <=2 S <=2 S
Ceftazidime <=1 S <=1 S
Ceftriaxone <=1 S <=1 S
Clindamycin
Ertapenem <=0.5 S <=0.5 S
Ciprofloxacin <=0.25 S <=0.25 S <=1 S
Gentamicin <=2 S <=2 S
Gentamicin Synergy Screen <=500 S
Erythromycin
Levofloxacin
Oxacillin
Meropenem <=1 S <=1 S
Piperacillin/Tazobactam <=8 S <=8 S
Tetracycline <=4 S <=4 S
Tobramycin <=2 S <=2 S
Trimethoprim/Sulfamethoxazole <=2/38 S <=2/38 S
Vancomycin 2 S
MSSA
M.I.C. RX
--------- ---
Amoxicillin/Potas. Clavulanate <=4/2 S
Ampicillin >8 R
Ampicillin/Sulbactam
Aztreonam
Cefazolin
Cefepime
Ceftazidime
Ceftriaxone
Clindamycin <=0.5 S
Ertapenem
Ciprofloxacin
Gentamicin <=4 S
Gentamicin Synergy Screen
Erythromycin <=0.5 S
Levofloxacin <=1 S
Oxacillin 0.5 S
Meropenem
Piperacillin/Tazobactam
Tetracycline <=4 S
Tobramycin
Trimethoprim/Sulfamethoxazole <=0.5/9.5 S
Vancomycin 1 S
Imaging:
07/05/2024 MRI right lower extremity: Postoperative changes of fourth and fifth partial ray amputation. There are findings of infection and soft tissue defect along the residual lateral soft tissues of the foot. There is associated underlying acute
osteomyelitis of the shaft of the residual fifth metatarsal.
07/04/2024 X-ray right foot: Cortical irregularity with bone loss at the level of the osteotomy site the right fifth metatarsal in the interval since most recent prior radiograph, at least suspicious for osteomyelitis.
Care Review
Plan reviewed with: Physician
--- NOTE | 2024-07-08 17:48 | SUR.PHASEI ---
Dr Waters at bedside, discussed labs and need for dialysis. at this time patient states ' I am not going back on dialysis'. discharge from pacu to [address] [place] [address] - hand off at bedside. doppler pulse checked, vss, bed kept supine but placed in reverse
Trendelenburg
[2024-07-08] MEDS: LIPITOR PO ×2 (17:59→18:13)
--- NOTE | 2024-07-08 18:25 | W.PN.POD ---
Today's Communication
Today's Communication
Patient stable per podiatry
Assessment / Plan
-
Rt foot S/p debridement with bone resection from Rt 5th metatarsal 07/07/2024 POD #1
Diabetic small vessel disease - Patient is S/P Angiogram today with vascular intervention
PAD
Diabetic neuropathy.
Plan ; Removed packing from Rt foot, Changed dressings to Rt foot , applied compressive dressings to Rt foot .
WbC count WNL
IV abx per ID
Can wt bear as tolerated with walker to bathroom
Reviewed Wound cultures,
Subjective
Chief Complaint
Rt foot infected ulcer
Subjective
Patient seen at bedside, doing well, had Rt L/E angiogram today , no new complaints.
Objective
Temp Pulse Resp BP Pulse Ox
97.6 F 73 18 194/82 95
07/08/24 17:50 07/08/24 17:50 07/08/24 17:50 07/08/24 17:50 07/08/24 17:50
07/08/24 07:56
07/08/24 07:56
Vital Signs and Lab results were reviewed.
Rt foot Intact vascular status
Rt foot decreased edema .
Rt foot surgical debrided site clean, dry, no bleeding, resolved foul odor , no necrotic tissue. no crepitus felt, no signs of any abscess
, no red streaking up the leg.
Rt dorsum foot with superficial discolored skin, no purulence , no exposed tendons
[2024-07-08 18:52] LABS: Glucose - Point of Care 223 mg/dl (70-99)
[2024-07-08] MEDS: APRESOLINE 5 MG IV (18:52)
[2024-07-08 21:36] LABS: Glucose - Point of Care 195 mg/dl (70-99)
[2024-07-08] MEDS: LANTUS 0.06 UNITS SC (22:58)
--- NOTE | 2024-07-08 23:24 | PTCARENOTE ---
Pt demanding to use bedside commode despite education given related bedrest orders. Assisted x2 to bedside commode. Neurovascular checks performed as ordered, dressing to L groin CDI, no hematoma or c/o pain noted. B/l LE pulses present with
Doppler.
[2024-07-09] LABS: Glucose - Point of Care 234 mg/dl (70-99)
[2024-07-09] MEDS: ZOSYN 50 IV ×5 (00:05→23:47)
[2024-07-09] MEDS: NOVOLOG FLEXPEN-LOW RESISTANCE 2 UNITS SC (00:18)
[2024-07-09 06:00] VITALS: BMI 36.0
[2024-07-09 06:43] VITALS: BMI 36.0
[2024-07-09 06:44] LABS: Hematocrit 37.5 % (37.0-47.0); Hemoglobin 11.7 g/dL (12.0-16.0); Mean Corp Hgb Conc. 31.2 g/dL (33.0-37.0); Mean Corpuscular Hgb 25.9 pg (27.0-31.0); Mean Corpuscular Volume 83.1 fL (81.0-99.0); Mean Platelet Volume 9.5 fL (7.4-10.4); Platelet Count 250 10^3/uL (130-400); Red Blood Cell Count 4.51 10^6/uL (4.20-5.40); Red Cell Dist. Width 19.7 % (11.5-14.5); White Blood Cell Count 7.9 10^3/uL (4.8-10.8)
[2024-07-09 07:21] LABS: Blood Urea Nitrogen 78 mg/dl (7-17); Calcium 8.6 mg/dl (8.4-10.2); Carbon Dioxide 21 mmol/L (22-30); Chloride 100 mmol/L (98-107); Estimated Creatinine Clearance 17 ml/min; Glucose 221 mg/dl (70-99); Potassium 5.2 mmol/L (3.5-5.1); Sodium 133 mmol/L (135-145); eGFR 11.74
[2024-07-09 07:25] VITALS: BP 145/63
[2024-07-09 07:50] LABS: Glucose - Point of Care 188 mg/dl (70-99)
[2024-07-09] MEDS: LOKELMA 10 GRAM PO (08:20)
[2024-07-09] MEDS: COREG 3.125 MG PO ×2 (08:20→20:27)
[2024-07-09] MEDS: BUMEX PO ×2 (08:21→08:38)
[2024-07-09] MEDS: PLAVIX 75 MG PO (08:21)
[2024-07-09] MEDS: LOW STRENGTH ASPIRIN 81 MG PO (08:21)
[2024-07-09] MEDS: HEPARIN 5000 UNITS SC ×2 (08:21→20:18)
[2024-07-09] MEDS: VISBIOME 1 CAP PO (08:21)
[2024-07-09] MEDS: NOVOLOG FLEXPEN-LOW RESISTANCE 1 UNITS SC (08:22)
[2024-07-09] MEDS: NOVOLOG FLEXPEN 6 UNITS SC (08:22)
--- NOTE | 2024-07-09 09:35 | W.PN.VS ---
Today's Communication / Plan
-
- doing well
- groin intact
- follow up withe Dr. Whitmore as outpatient
- Call with questions
Assessment/Plan
-
s/p agram
- doing well
- groin intact
- follow up withe Dr. Whitmore as outpatient
- Call with questions
Subjective Data
-
Date of Service: July 09, 2024
Doing well
no complaints s/p agram
Objective Data
-
Vital Signs
Temp Pulse Resp BP Pulse Ox
97.5 F 75 16 145/63 95
07/09/24 07:25 07/09/24 08:20 07/09/24 07:25 07/09/24 08:20 07/09/24 07:25
Intake and Output
07/08/24 07/09/24 07/10/24
06:59 06:59 06:59
Intake Total 400 / 400 770 / 770 250 / 250
Output Total 780 / 780
Balance 400 / 400 -10 / -10 250 / 250
Intake:
Oral fluids 240 / 240 50 / 50
IV fluids (Total) 60 / 60 520 / 520 200 / 200
ns 20 / 20
sodium bicarb IV 300 / 300
IV piggybacks 100 / 100 200 / 200 50 / 50
Output:
Urine, Voided 600 / 600
Straight cath output 180 / 180
Other:
Number of approximated SMALL 1
amounts of urine
Number of approximated MODERATE 1
amounts of urine
Lab Results
07/09/24 05:39
07/09/24 05:39
Calcium 8.6 mg/dl (8.4-10.2) 07/09/24 05:39
Total Bilirubin 0.4 mg/dl (0.2-1.3) 07/08/24 07:56
AST 38 U/L (14-36) H 07/08/24 07:56
ALT 32 U/L (0-35) 07/08/24 07:56
Alkaline Phosphatase 516 U/L (38-126) H 07/08/24 07:56
Total Protein 6.7 g/dl (6.3-8.2) 07/08/24 07:56
Albumin 2.9 g/dl (3.5-5.0) L 07/08/24 07:56
Physical Exam
-
left groin intact
no hematoma, soft
rle warm
--- NOTE | 2024-07-09 12:05 | W.PN.NEPH.PH ---
Today's Communication / Plan
-
follow labs
Assessment/Plan
-
Impression:
MARYLOU/CKD 4 (previously dialysis dependent up until 8 weeks ago)
Open wound/diabetic foot infection of right lateral foot possible osteomyelitis status post angiogram with stent placement on 07/08/2024
History of right diabetic foot infection status post fifth toe amputation on 12/06 and revision fourth toe amputation on 12/13
Peripheral arterial disease status post diagnostic arteriogram, intravascular lithotripsy of the posterior tibial artery and proximal SFA, balloon angioplasty and nitroglycerin injection of posterior tibial artery on 12/21/23
Chronic transaminitis
Type 1 diabetes
ESRD on hemodialysis Thursday and Thursday (stopped two months prior)
Chronic HFpEF
chronic anemia
Moderate aortic stenosis/aortic regurgitation
Mild to moderate mitral stenosis
Paroxysmal SVT
Iron deficiency anemia
History of CVA
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
PLan:
MARYLOU: previously HD dependant, reportedly off 2months
now worsening renal function cr 4.4, UA bland and proteinuria 3gm/gm of cr likely from diabetic nephropathy-similar presentation in December too
MARYLOU likely exacerbated by underlying infection possible antibiotic administration and now likely to be further exacerbated in the setting of contrast administration following angiogram and stent placement 07/08 of right lower extremity
We reviewed again potential need of HD if renal function cont to worsen in next 1-2days
UOP less per pt, bladder scan 326cc, cont bumex
She initially resisted to the idea of HD but seem to accept by end of conversation, answered all her questions
on 07/08 Dr Villegas explain to her that she was not doing well as an outpatient as she has had a 25 pound weight gain likely due to her sodium avid state in the setting of her advanced diabetic nephropathy and being off dialysis is likely not been
beneficial for her
ok for LOkelam for mild hyperkalemia, low k diet
Daily BMP and accurate I's and O's and weights to be recorded
high risk encounter
-
-
Date of Service: July 09, 2024
CC / HPI / ROS
-
Chief Complaint:
MARYLOU, CKD
History of Present Illness:
cr up at 4.4, k 5.2, bicarb 21
BP stable
wt no change
UOP 600cc, 1 void
Review of Systems:
no cp or sob
no n/v
Labs
-
Labs:
WBC 7.9 10^3/uL (4.8-10.8) 07/09/24 05:39
RBC 4.51 10^6/uL (4.20-5.40) 07/09/24 05:39
Hgb 11.7 g/dL (12.0-16.0) L 07/09/24 05:39
Hct 37.5 % (37.0-47.0) 07/09/24 05:39
Plt Count 250 10^3/uL (130-400) 07/09/24 05:39
Sodium 133 mmol/L (135-145) L 07/09/24 05:39
Potassium 5.2 mmol/L (3.5-5.1) H 07/09/24 05:39
Chloride 100 mmol/L (98-107) 07/09/24 05:39
Carbon Dioxide 21 mmol/L (22-30) L 07/09/24 05:39
BUN 78 mg/dl (7-17) H 07/09/24 05:39
Creatinine 4.4 mg/dL (0.6-1.0) H* 07/09/24 05:39
eGFR 11.74 07/09/24 05:39
Glucose 221 mg/dl (70-99) H 07/09/24 05:39
Calcium 8.6 mg/dl (8.4-10.2) 07/09/24 05:39
Albumin 2.9 g/dl (3.5-5.0) L 07/08/24 07:56
Physical Exam
-
Vital Signs:
Vital Signs
Temp Pulse Resp BP Pulse Ox
97.5 F 75 16 145/63 95
07/09/24 07:25 07/09/24 08:20 07/09/24 07:25 07/09/24 08:20 07/09/24 07:25
Cardiovascular:: Regular rate and rhythm (murmur)
Respiratory:: Bilateral: CTA (decreased)
Lung Excursion:: Normal
Abdomen:: Nontender and Soft
Extremity Edema:: +3: Bilateral:
Whitmore Catheter: No
--- NOTE | 2024-07-09 13:25 | W.PN.HOSP.TC ---
Today's Communication/Plan
-
likely will need HD
Assessment / Plan
Assessment / Plan
General: Well Developed and Well Nourished
HEENT: Normocephalic and Atraumatic
Respiratory: Clear to Auscultation
Cardiac: Regular Rhythm
GI: Soft, Nontender, Nondistended and Normal Bowel Sounds
Skin: Warm
Neuro: Awake, Alert, Oriented and AO x 3
Psych: Calm
Right diabetic foot infection with osteomyelitis, confirmed on MRI
-Osteomyelitis of shaft of the residual fifth metatarsal
-Will continue vancomycin, dosed per levels, per ID
-Continue Zosyn
-Vascular surgery�s/p angioplasty and EMA to the right distal posterior to
-Podiatry following, s/p debridement and bone culture
PAD
-S/p angioplasty and stent to the right distal posterior tibial artery. Balloon angio to the right plantar artery, pedal arch, dorsal pedis arteries 07/08/2024
-Resume aspirin Plavix
-Continue statin
Type 1 diabetes
-Continue long-acting insulin and sliding scale
-Carb controlled diet
-Accu-Cheks
-Accuchecks 140-180
-A1c 10%
-Will have diabetes [employer] evaluate for strict blood glucose control
-Will need outpatient ophthalmology follow-up
CAD
-S/p CABG
-Continue Statin and BB
Chronic HFpEF
-COntinue Bumex and BB
MARYLOU on CKD stage V C/b HyperKalemia
-Will likely need HD in the next 1-2 days
-Progressively getting worse
-Nonoliguric at this time
-K5.2, , low k diet, lokelma
-Check urine creatinine protein urine analysis
-Consult nephrology
-Bladder scan
-Avoid nephrotoxins hypotension
-Expect function to get worse as plan for CT angiogram today
Chronic transaminitis
-Stable
Anticipated Discharge: > 48 hours
Subjective/Interval History
-
Date of Service: July 09, 2024
Seen and examined. No new complaints. No acute overnight events.
Objective Data
-
Labs:
Laboratory Results
07/09/24
05:39
WBC 7.9
Hgb 11.7 L
Hct 37.5
Plt Count 250
Sodium 133 L
Potassium 5.2 H
Chloride 100
Carbon Dioxide 21 L
BUN 78 H
Creatinine 4.4 H*
Glucose 221 H
Calcium 8.6
Vital Signs:
Vital Signs
Temp Pulse Resp BP Pulse Ox
97.5 F 75 16 145/63 95
07/09/24 07:25 07/09/24 08:20 07/09/24 07:25 07/09/24 08:20 07/09/24 07:25
I&O
07/08/24 07/09/24 07/10/24
06:59 06:59 06:59
Intake Total 400 / 400 770 / 770 250 / 250
Output Total 780 / 780
Balance 400 / 400 -10 / -10 250 / 250
[2024-07-09 13:49] LABS: Glucose - Point of Care 144 mg/dl (70-99)
[2024-07-09] MEDS: NOVOLOG FLEXPEN-LOW RESISTANCE SC ×2 (13:55→18:21)
[2024-07-09 15:40] VITALS: BP 142/55
[2024-07-09] MEDS: NOVOLOG FLEXPEN SC ×2 (16:36→18:21)
[2024-07-09 16:47] VITALS: BP 142/55
[2024-07-09] MEDS: LIPITOR 80 MG PO (18:09)
[2024-07-09 18:20] LABS: Glucose - Point of Care 129 mg/dl (70-99)
[2024-07-09 22:04] LABS: Glucose - Point of Care 126 mg/dl (70-99)
[2024-07-09] MEDS: LANTUS SC (22:52)
[2024-07-09 23:35] VITALS: BP 146/60
[2024-07-10 06:00] VITALS: BMI 36.1
[2024-07-10 06:29] LABS: Glucose - Point of Care 91 mg/dl (70-99)
[2024-07-10] MEDS: ZOSYN 50 IV ×3 (06:36→18:05)
[2024-07-10 06:41] LABS: Hematocrit 36.5 % (37.0-47.0); Hemoglobin 11.4 g/dL (12.0-16.0); Mean Corp Hgb Conc. 31.2 g/dL (33.0-37.0); Mean Corpuscular Volume 83.1 fL (81.0-99.0); Mean Platelet Volume 9.4 fL (7.4-10.4); Platelet Count 257 10^3/uL (130-400); Red Blood Cell Count 4.39 10^6/uL (4.20-5.40); Red Cell Dist. Width 20.1 % (11.5-14.5); White Blood Cell Count 5.8 10^3/uL (4.8-10.8)
[2024-07-10 07:16] LABS: Blood Urea Nitrogen 77 mg/dl (7-17); Calcium 8.5 mg/dl (8.4-10.2); Carbon Dioxide 24 mmol/L (22-30); Chloride 100 mmol/L (98-107); Estimated Creatinine Clearance 14 ml/min; Glucose 104 mg/dl (70-99); Potassium 4.4 mmol/L (3.5-5.1); Sodium 136 mmol/L (135-145); eGFR 9.61
[2024-07-10 07:40] VITALS: BP 149/64
[2024-07-10 07:54] LABS: Glucose - Point of Care 94 mg/dl (70-99)
[2024-07-10] MEDS: PLAVIX 75 MG PO (08:41)
[2024-07-10] MEDS: LOW STRENGTH ASPIRIN 81 MG PO (08:41)
[2024-07-10] MEDS: BUMEX PO ×2 (08:42→08:45)
[2024-07-10] MEDS: NOVOLOG FLEXPEN-LOW RESISTANCE SC ×3 (08:44→17:11)
[2024-07-10] MEDS: VISBIOME 1 CAP PO (08:44)
[2024-07-10] MEDS: COREG 3.125 MG PO ×2 (08:44→20:52)
[2024-07-10] MEDS: NOVOLOG FLEXPEN SC ×4 (08:45→18:33)
[2024-07-10] MEDS: HEPARIN 5000 UNITS SC ×2 (08:45→20:52)
[2024-07-10] MEDS: DRISDOL (VITAMIN D2) 50000 UNITS PO (09:15)
--- NOTE | 2024-07-10 09:15 | PTCARENOTE ---
Patient refused standing scale insulin with morning meal this morning, stating that she did not need it. Refused Bumex as well. I educated patient that she should take the Bumex due to her edema; educated regarding insulin that it was needed to
control her blood sugars. Patient ate 25% of her breakfast this morning. Refused all meals yesterday; was NPO the day prior due to angiogram procedure.
[2024-07-10 11:12] LABS: Glucose - Point of Care 118 mg/dl (70-99)
[2024-07-10 12:00] VITALS: BP 185/74
--- NOTE | 2024-07-10 13:47 | W.PN.NEPH.PH ---
Today's Communication / Plan
-
IR consult for HD catheter in am
Assessment/Plan
-
Impression:
MARYLOU/CKD 4 (previously dialysis dependent up until 8 weeks ago)
Open wound/diabetic foot infection of right lateral foot possible osteomyelitis status post angiogram with stent placement on 07/08/2024
History of right diabetic foot infection status post fifth toe amputation on 12/06 and revision fourth toe amputation on 12/13
Peripheral arterial disease status post diagnostic arteriogram, intravascular lithotripsy of the posterior tibial artery and proximal SFA, balloon angioplasty and nitroglycerin injection of posterior tibial artery on 12/21/23
Chronic transaminitis
Type 1 diabetes
ESRD on hemodialysis Thursday and Thursday (stopped two months prior)
Chronic HFpEF
chronic anemia
Moderate aortic stenosis/aortic regurgitation
Mild to moderate mitral stenosis
Paroxysmal SVT
Iron deficiency anemia
History of CVA
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
PLan:
MARYLOU: previously HD dependant, reportedly off 2months [employer]
now worsening renal function cr 5.4 with low UOP on bumex
UA bland and proteinuria 3gm/gm of cr likely from diabetic nephropathy-similar presentation in December too
MARYLOU likely exacerbated by underlying infection possible antibiotic administration and contrast administration following angiogram and stent placement 07/08 of right lower extremity
We reviewed again in detail about need of HD , after long discussion she finally agreed
will consult IR to place tunneled HD catheter, HD tomorrow if possible
dose meds renally
high risk encounter
-
-
Date of Service: July 10, 2024
CC / HPI / ROS
-
Chief Complaint:
MARYLOU, CKD
History of Present Illness:
cr up at 5.4, k normal, bicarb 24
BP stable
wt no change
UOP not recorded, pt noted low UOP
Review of Systems:
no cp or sob
no n/v
has diarrhea
Labs
-
Labs:
WBC 5.8 10^3/uL (4.8-10.8) 07/10/24 05:45
RBC 4.39 10^6/uL (4.20-5.40) 07/10/24 05:45
Hgb 11.4 g/dL (12.0-16.0) L 07/10/24 05:45
Hct 36.5 % (37.0-47.0) L 07/10/24 05:45
Plt Count 257 10^3/uL (130-400) 07/10/24 05:45
Sodium 136 mmol/L (135-145) 07/10/24 05:45
Potassium 4.4 mmol/L (3.5-5.1) 07/10/24 05:45
Chloride 100 mmol/L (98-107) 07/10/24 05:45
Carbon Dioxide 24 mmol/L (22-30) 07/10/24 05:45
BUN 77 mg/dl (7-17) H 07/10/24 05:45
Creatinine 5.2 mg/dL (0.6-1.0) H* 07/10/24 05:45
eGFR 9.61 07/10/24 05:45
Glucose 104 mg/dl (70-99) H 07/10/24 05:45
Calcium 8.5 mg/dl (8.4-10.2) 07/10/24 05:45
Albumin 2.9 g/dl (3.5-5.0) L 07/08/24 07:56
Physical Exam
-
Vital Signs:
Vital Signs
Temp Pulse Resp BP Pulse Ox
97.2 F 70 20 149/64 99
07/10/24 07:40 07/10/24 08:44 07/10/24 07:40 07/10/24 08:44 07/10/24 07:40
Cardiovascular:: Regular rate and rhythm (murmur)
Respiratory:: Bilateral: CTA (decreased)
Lung Excursion:: Normal
Abdomen:: Nontender and Soft
Extremity Edema:: +3: Bilateral:
Whitmore Catheter: No
[2024-07-10 17:04] LABS: Glucose - Point of Care 128 mg/dl (70-99)
--- NOTE | 2024-07-10 17:33 | W.PN.HOSP.TC ---
Today's Communication/Plan
-
IV antibiotic
N.p.o. after midnight
HD catheter placement by IR tomorrow
Nephrology following
Initiate HD tomorrow
Assessment / Plan
Assessment / Plan
General: Well Developed and Well Nourished
HEENT: Normocephalic and Atraumatic
Respiratory: Clear to Auscultation
Cardiac: Regular Rhythm
GI: Soft, Nontender, Nondistended and Normal Bowel Sounds
Skin: Warm right diabetic foot wound covered
Neuro: Awake, Alert, Oriented and AO x 3
Psych: Calm however strange affect
Right diabetic foot infection with osteomyelitis, confirmed on MRI
-Osteomyelitis of shaft of the residual fifth metatarsal
-Will continue vancomycin, dosed per levels, per ID
-Continue Zosyn
-Vascular surgery�s/p angioplasty and EMA to the right distal posterior to
-Podiatry following, s/p debridement and bone culture
PAD
-S/p angioplasty and stent to the right distal posterior tibial artery. Balloon angio to the right plantar artery, pedal arch, dorsal pedis arteries 07/08/2024
-Resume aspirin Plavix
-Continue statin
Type 1 diabetes
-Continue long-acting insulin and sliding scale
-Carb controlled diet
-Accu-Cheks
-Accuchecks 140-180
-A1c 10%
-Will have diabetes HIV NURSE evaluate for strict blood glucose control
-Will need outpatient ophthalmology follow-up
CAD
-S/p CABG
-Continue Statin and BB
Chronic HFpEF
-COntinue Bumex and BB
MARYLOU on CKD stage V C/b HyperKalemia
-Will likely need HD in the next 1-2 days
-Progressively getting worse
-Nonoliguric at this time
-K5.2, , low k diet, lokelma, now resolved
-Check urine creatinine protein urine analysis
-Consult nephrology
-Bladder scan
-Avoid nephrotoxins hypotension
-Expect function to get worse as plan for CT angiogram
Per nephrology n.p.o. after midnight, and for primary catheter placement by IR and to initiate dialysis
Chronic transaminitis
-Stable
Anticipated Discharge: > 48 hours
Subjective/Interval History
-
Date of Service: July 10, 2024
Seen and examined. No new complaints. No acute overnight events.
Objective Data
-
Labs:
Laboratory Results
07/10/24
05:45
WBC 5.8
Hgb 11.4 L
Hct 36.5 L
Plt Count 257
Sodium 136
Potassium 4.4
Chloride 100
Carbon Dioxide 24
BUN 77 H
Creatinine 5.2 H*
Glucose 104 H
Calcium 8.5
Vital Signs:
Vital Signs
Temp Pulse Resp BP Pulse Ox
97.2 F 70 20 149/64 99
07/10/24 07:40 07/10/24 08:44 07/10/24 07:40 07/10/24 08:44 07/10/24 07:40
I&O
07/09/24 07/10/24 07/11/24
06:59 06:59 06:59
Intake Total 770 / 770 980 / 980
Output Total 780 / 780 200 / 200 200 / 200
Balance -10 / -10 780 / 780 -200 / -200
[2024-07-10] MEDS: LIPITOR 80 MG PO (18:04)
[2024-07-10] MEDS: APRESOLINE 5 MG IV (18:05)
[2024-07-10 20:34] VITALS: BP 159/66
[2024-07-10 21:30] LABS: Glucose - Point of Care 145 mg/dl (70-99)
[2024-07-10] MEDS: LANTUS 0.03 UNITS SC (22:21)
[2024-07-10 23:28] VITALS: BP 146/63
[2024-07-11] MEDS: ZOSYN 50 IV ×4 (00:10→22:11)
[2024-07-11 00:14] LABS: Glucose - Point of Care 121 mg/dl (70-99)
[2024-07-11 06:00] VITALS: BMI 35.9
[2024-07-11 06:20] LABS: Glucose - Point of Care 108 mg/dl (70-99)
[2024-07-11] MEDS: NOVOLOG FLEXPEN-LOW RESISTANCE SC ×3 (06:55→17:52)
[2024-07-11] MEDS: NOVOLOG FLEXPEN SC (06:55)
--- NOTE | 2024-07-11 07:06 | PN.DE.MGMTRT ---
Insulin Management
- -
07/11/2024 Diabetes Management Consult Follow up
Patient admitted 07/04 for R foot wound with foul smelling drainage. PMH HTN, CKD, CHF, diabetes, CVA, s/p R 4th and 5th toe amputation, Guillain barre syndrome. Patient known to me from previous admissions. Prior to admission was taking lantus
4 units @ HS. A1C on admission 10%, cr 2.5, eGFR 23.14.
Cr 5.2, eGFR 9.61. Patient currently NPO for procedure today, will resume dialysis.
s/p OR for debridement R foot wound 07/07, and vascular procedure 07/08 to R tibial artery, awake alert and oriented able to discuss diabetes care plan.
Glucose improved 94 to 145, receiving no insulin 07/09 and , poor appetite or refused meals. Will decrease HS lantus to 3 units and AC novolog to 3 units after procedure.
Diabetes History
- -
Type of Diabetes: 2 requiring insulin
Pre-Admission Diabetes Regimen
07/10/24
05:45
Creatinine 5.2 H*
Lab Results
Hemoglobin A1c 10.0 % (4.0-5.6) H 07/05/24 13:33
Insulin Pump Settings
IP Diabetes Regimen
07/10/24 07/10/24 07/10/24
05:45 07:53 11:10
Glucose 104 H
POC Glucose 94 118 H
07/10/24 07/10/24 07/11/24
17:02 21:18 00:12
Glucose
POC Glucose 128 H 145 H 121 H
07/11/24
06:19
Glucose
POC Glucose 108 H
Meal type: Dinner
Amount consumed: Patient refused
Patient Education
[2024-07-11 07:37] VITALS: BP 143/69
[2024-07-11] MEDS: HEPARIN SC (09:03)
[2024-07-11 09:21] LABS: Hemoglobin 11.2 g/dL (12.0-16.0); Mean Corp Hgb Conc. 31.1 g/dL (33.0-37.0); Mean Corpuscular Hgb 25.9 pg (27.0-31.0); Mean Corpuscular Volume 83.3 fL (81.0-99.0); Mean Platelet Volume 9.2 fL (7.4-10.4); Platelet Count 242 10^3/uL (130-400); Red Blood Cell Count 4.32 10^6/uL (4.20-5.40); Red Cell Dist. Width 19.9 % (11.5-14.5); White Blood Cell Count 5.8 10^3/uL (4.8-10.8)
[2024-07-11 10:42] LABS: Blood Urea Nitrogen 81 mg/dl (7-17); Calcium 8.4 mg/dl (8.4-10.2); Carbon Dioxide 23 mmol/L (22-30); Chloride 100 mmol/L (98-107); Estimated Creatinine Clearance 15 ml/min; Glucose 103 mg/dl (70-99); Potassium 4.2 mmol/L (3.5-5.1); Sodium 135 mmol/L (135-145); eGFR 10.07
--- NOTE | 2024-07-11 11:26 | W.PN.NEPH.PH ---
Today's Communication / Plan
-
Patient counseling for dialysis
BMP tomorrow
Assessment/Plan
-
Impression:
MARYLOU/CKD 4 (previously dialysis dependent up until 8 weeks ago)
Open wound/diabetic foot infection of right lateral foot possible osteomyelitis status post angiogram with stent placement on 07/08/2024
History of right diabetic foot infection status post fifth toe amputation on 12/06 and revision fourth toe amputation on 12/13
Peripheral arterial disease status post diagnostic arteriogram, intravascular lithotripsy of the posterior tibial artery and proximal SFA, balloon angioplasty and nitroglycerin injection of posterior tibial artery on 12/21/23
Chronic transaminitis
Type 1 diabetes
ESRD on hemodialysis Thursday and Thursday (stopped two months prior)
Chronic HFpEF
chronic anemia
Moderate aortic stenosis/aortic regurgitation
Mild to moderate mitral stenosis
Paroxysmal SVT
Iron deficiency anemia
History of CVA
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
PLan:
MARYLOU: previously HD dependant, reportedly off 2months [employer]
now worsening renal function cr 5with low UOP on bumex
UA bland and proteinuria 3gm/gm of cr likely from diabetic nephropathy-similar presentation in December too
MARYLOU likely exacerbated by underlying infection possible antibiotic administration and contrast administration following angiogram and stent placement 07/08 of right lower extremity
We reviewed again in detail about need of HD , after long discussion she that she does not wish to pursue dialysis at this time
Cancel IR to place tunneled HD catheter
dose meds renally
Follow BMP tomorrow
-
-
Date of Service: July 11, 2024
CC / HPI / ROS
-
Chief Complaint:
MARYLOU, CKD
History of Present Illness:
cr up at 5., k normal, bicarb 24
BP stable
wt no change
UOP not recorded, pt noted low UOP
Review of Systems:
no cp or sob
no n/v
has diarrhea
Labs
-
Labs:
WBC 5.8 10^3/uL (4.8-10.8) 07/11/24 08:58
RBC 4.32 10^6/uL (4.20-5.40) 07/11/24 08:58
Hgb 11.2 g/dL (12.0-16.0) L 07/11/24 08:58
Hct 36.0 % (37.0-47.0) L 07/11/24 08:58
Plt Count 242 10^3/uL (130-400) 07/11/24 08:58
Sodium 135 mmol/L (135-145) 07/11/24 08:58
Potassium 4.2 mmol/L (3.5-5.1) 07/11/24 08:58
Chloride 100 mmol/L (98-107) 07/11/24 08:58
Carbon Dioxide 23 mmol/L (22-30) 07/11/24 08:58
BUN 81 mg/dl (7-17) H 07/11/24 08:58
Creatinine 5.0 mg/dL (0.6-1.0) H* 07/11/24 08:58
eGFR 10.07 07/11/24 08:58
Glucose 103 mg/dl (70-99) H 07/11/24 08:58
Calcium 8.4 mg/dl (8.4-10.2) 07/11/24 08:58
Albumin 2.9 g/dl (3.5-5.0) L 07/08/24 07:56
Physical Exam
-
Vital Signs:
Vital Signs
Temp Pulse Resp BP Pulse Ox
97.5 F 73 18 143/69 92
07/11/24 07:37 07/11/24 07:37 07/11/24 07:37 07/11/24 07:37 07/11/24 07:37
Cardiovascular:: Regular rate and rhythm (murmur)
Respiratory:: Bilateral: CTA (decreased)
Lung Excursion:: Normal
Abdomen:: Nontender and Soft
Extremity Edema:: +3: Bilateral:
Whitmore Catheter: No
--- NOTE | 2024-07-11 11:49 | PTCARENOTE ---
Patient is refusing to get her tunneled catheter for HD this morning; felt her lab values were improving and is not willing to undergo the procedure at this time. Nephrology and attending made aware.
[2024-07-11] MEDS: LOW STRENGTH ASPIRIN 81 MG PO (11:52)
[2024-07-11] MEDS: VISBIOME 1 CAP PO (11:53)
[2024-07-11] MEDS: COREG 3.125 MG PO ×2 (11:53→20:47)
[2024-07-11] MEDS: PLAVIX 75 MG PO (11:53)
[2024-07-11] MEDS: BUMEX PO (12:00)
[2024-07-11 12:19] LABS: Glucose - Point of Care 80 mg/dl (70-99)
--- NOTE | 2024-07-11 13:38 | W.PN.HOSP.TC ---
Today's Communication/Plan
-
Imodium as needed
Continue antibiotics
Labs in the morning
Assessment / Plan
Assessment / Plan
Gen-AAOx3, NAD
HEENT-NC, AT, anicteric, clear oral mm
Neck-supple
CV-reg, no M, +S1/S2
Lungs-clear B/L
Abd-soft, NT, ND
Ext-no edema
Musculoskeletal-no cyanosis, clubbing
Skin-warm and dry
Neuro-grossly non-focal
Psych-calm, cooperative
Right diabetic foot infection with acute osteomyelitis, confirmed on MRI
-Osteomyelitis of shaft of the residual fifth metatarsal
-Continue antibiotics per ID.
-Vascular surgery�s/p angioplasty and EMA to the right distal posterior to
-Podiatry following, s/p debridement and bone culture
PAD
-S/p angioplasty and stent to the right distal posterior tibial artery. Balloon angio to the right plantar artery, pedal arch, dorsal pedis arteries 07/08/2024
-Continue aspirin and Plavix
-Continue statin
Type 1 diabetes
-Continue long-acting insulin and sliding scale
-Carb controlled diet
-Accu-Cheks
-Accuchecks 140-180
-A1c 10%
-Diabetes [employer] managing the insulin
-Will need outpatient ophthalmology follow-up
CAD-S/p CABG
-Continue Statin and BB
Chronic HFpEF
-COntinue Bumex and BB
MARYLOU on CKD stage V -nephrology has recommended starting dialysis but patient wants to hold off as she anticipates her renal function will improve. She was on dialysis previously.
-Will likely need HD in the next 1-2 days
-Progressively getting worse
-Nonoliguric at this time
-Hyperkalemia resolved.
-Check urine creatinine protein urine analysis
-Consult nephrology
-Bladder scan
-Avoid nephrotoxins hypotension
-Expect function to get worse as plan for CT angiogram
Acute colitis -loose stools possibly related to antibiotics. Stool C. difficile and norovirus negative. Add Imodium as needed.
Chronic transaminitis
-Stable
Full code
Anticipated Discharge: > 48 hours
Subjective/Interval History
-
Date of Service: July 11, 2024
Patient seen and examined. Complaining of loose stools.
Objective Data
-
Labs:
Laboratory Results
07/11/24
08:58
WBC 5.8
Hgb 11.2 L
Hct 36.0 L
Plt Count 242
Sodium 135
Potassium 4.2
Chloride 100
Carbon Dioxide 23
BUN 81 H
Creatinine 5.0 H*
Glucose 103 H
Calcium 8.4
Vital Signs:
Vital Signs
Temp Pulse Resp BP Pulse Ox
97.5 F 73 18 154/70 92
07/11/24 07:37 07/11/24 11:53 07/11/24 07:37 07/11/24 11:53 07/11/24 07:37
I&O
07/10/24 07/11/24 07/12/24
06:59 06:59 06:59
Intake Total 980 / 980 520 / 520
Output Total 200 / 200 350 / 350
Balance 780 / 780 170 / 170
Review of Systems
-
History Source: Patient
All other systems: Reviewed and negative
--- NOTE | 2024-07-11 13:49 | WOUNDNOTE ---
WOC RN NOTE: Reviewed chart. Podiatry continues to provide care and orders to right foot. Will sign off.
--- NOTE | 2024-07-11 14:24 | CM ---
Reviewed the chart notes and spoke with the patient at the bedside. CM continues to be available to patient/family and is monitoring medical plan for needs at discharge.
Plan: Discharge to home when medically stable with [facility] services.
--- NOTE | 2024-07-11 14:35 | W.PN.ID1 ---
Date of Service
Date of Service: July 11, 2024
Today's Communication
Continue antibiotics.
Assessment / Plan
Right foot osteomyelitis
- Recovered K. aerogenes, E. cloacae, E. faecalis, MSSA
Right foot SSTI with gangrene
- s/p debridement and bone resection form Rt 5th metatarsal (07/07/24)
Elevated ESR
CKD stage IV (Hx of prior HD, but now off)
IDDM (uncontrolled; HbA1c = 10.1 on 02/16/24, 10.0 on 07/05/24)
PAD
Functional immunosuppression
Diastolic CHF
Anemia
Hx CVA
Paroxysmal SVT
Hx Guillain-Song� with chronic LLE weakness
Recommendations:
Continue with empiric zosyn; dose adjusted for CKD stage IV / V
S/P right foot revision. S/P angiography, angioplasty and stent placement.
Await path to determine whether all osteomyelitis resected. If no residual osteomyelitis, would complete a 2-week course (currently day #5). If not all osteomyelitis resected, patient would either benefit from further resection, or a 6-week course
of IV antibiotics.
Given uncontrolled diabetes, peripheral vascular disease and CKD, patient in an extremely high risk situation for limb loss.
Chief Complaint
-: Other (Right foot wound infection; right fifth metatarsal osteomyelitis)
Subjective / Review of Systems
Review of Systems: No Fever and No Chills
Vital Signs / Physical Exam
Vital Signs
Vital Signs
Temp Pulse Resp BP Pulse Ox
97.5 F 73 18 154/70 92
07/11/24 07:37 07/11/24 11:53 07/11/24 07:37 07/11/24 11:53 07/11/24 07:37
Physical Exam
Constitutional: Comfortable, Chronically Ill and Non-toxic
Eyes: Sclera Anicteric
Cardiovascular: S1/S2; Negative S3/S4
Pulmonary: Clear and Non Labored
Gastrointestinal: Soft and Non Distended
Skin: Warm and Dry; Negative Rash or Jaundice
Wound: Other (Right foot dressed in gerri.)
Neurological: AO x 3
Psychological: Calm
Objective Data
Lab Data
Lab Results
07/11/24 08:58
07/11/24 08:58
ESR 62 mm/hour (0-20) H 07/04/24 12:20
Estimated Creat Clear 15 ml/min 07/11/24 08:58
Total Bilirubin 0.4 mg/dl (0.2-1.3) 07/08/24 07:56
AST 38 U/L (14-36) H 07/08/24 07:56
ALT 32 U/L (0-35) 07/08/24 07:56
Alkaline Phosphatase 516 U/L (38-126) H 07/08/24 07:56
C-Reactive Protein 10.30 mg/L (0.0-10.00) H 07/04/24 12:20
Most recent labs reviewed.
Micro Results:
07/07/24 15:25 Tissue Culture - Preliminary
Toe Enterococcus faecalis
Staphylococcus aureus
Streptococcus species
Viridans Streptococcus Group
Gram Stain - Preliminary
07/07/24 15:25 Anaerobic Culture - Preliminary
Foot - Right Culture pending. Anaerobic cultures are examined after 3
days incubation. Additional information to follow.
07/07/24 15:25 Wound Culture - Preliminary
Foot - Right Enterococcus species
Streptococcus species
Viridans Streptococcus Group
Gram Stain - Preliminary
07/08/24 03:15 C. difficile GDH Antigen & Toxins - Final
Feces/Stool Negative for toxigenic C.difficile
- Final
Negative for Norovirus GI and GII.
07/04/24 17:23 MRSA Screen - Final
Nose Staph aureus MRSA
Wound/abscess/other Cult Final 02/17/2024
Few Klebsiella aerogenes
Few second Enterobacter cloacae
Moderate Enterococcus faecalis
Moderate S aureus-Methicillin Sensitive
Organism 1 Klebsiella aerogenes
Organism 2 Enterobacter cloacae
Organism 3 Enterococcus faecalis
Organism 4 S aureus-Methicillin Sensitive
KLEAER E.CLOACAE ENTFCL
M.I.C. RX M.I.C. RX M.I.C. RX
--------- --- --------- --- --------- ---
Amoxicillin/Potas. Clavulanate 16/8 R >16/8 R
Ampicillin >16 R >16 R <=2 S
Ampicillin/Sulbactam 8/4 R 8/4 R
Aztreonam <=4 S <=4 S
Cefazolin 8 R >16 R
Cefepime <=2 S <=2 S
Ceftazidime <=1 S <=1 S
Ceftriaxone <=1 S <=1 S
Clindamycin
Ertapenem <=0.5 S <=0.5 S
Ciprofloxacin <=0.25 S <=0.25 S <=1 S
Gentamicin <=2 S <=2 S
Gentamicin Synergy Screen <=500 S
Erythromycin
Levofloxacin
Oxacillin
Meropenem <=1 S <=1 S
Piperacillin/Tazobactam <=8 S <=8 S
Tetracycline <=4 S <=4 S
Tobramycin <=2 S <=2 S
Trimethoprim/Sulfamethoxazole <=2/38 S <=2/38 S
Vancomycin 2 S
MSSA
M.I.C. RX
--------- ---
Amoxicillin/Potas. Clavulanate <=4/2 S
Ampicillin >8 R
Ampicillin/Sulbactam
Aztreonam
Cefazolin
Cefepime
Ceftazidime
Ceftriaxone
Clindamycin <=0.5 S
Ertapenem
Ciprofloxacin
Gentamicin <=4 S
Gentamicin Synergy Screen
Erythromycin <=0.5 S
Levofloxacin <=1 S
Oxacillin 0.5 S
Meropenem
Piperacillin/Tazobactam
Tetracycline <=4 S
Tobramycin
Trimethoprim/Sulfamethoxazole <=0.5/9.5 S
Vancomycin 1 S
Imaging:
07/05/2024 MRI right lower extremity: Postoperative changes of fourth and fifth partial ray amputation. There are findings of infection and soft tissue defect along the residual lateral soft tissues of the foot. There is associated underlying acute
osteomyelitis of the shaft of the residual fifth metatarsal.
07/04/2024 X-ray right foot: Cortical irregularity with bone loss at the level of the osteotomy site the right fifth metatarsal in the interval since most recent prior radiograph, at least suspicious for osteomyelitis.
[2024-07-11] MEDS: IMODIUM 2 MG PO (14:53)
[2024-07-11 15:30] VITALS: BP 173/75
--- NOTE | 2024-07-11 15:45 | W.PN.POD ---
Today's Communication
Today's Communication
Patient stable per podiatry, nursing for daily dressing changes
Assessment / Plan
-
Rt foot S/p debridement with bone resection from Rt 5th metatarsal 07/07/2024 POD #4
Diabetic small vessel disease - Patient is S/P Angiogram today with vascular intervention
PAD
Diabetic neuropathy.
Plan ; Removed packing from Rt foot, Changed dressings to Rt foot , applied compressive dressings to Rt foot .
WbC count WNL
IV abx per ID
Can wt bear as tolerated with walker to bathroom
Reviewed Wound cultures, pending bone path
Subjective
Chief Complaint
Rt foot infected ulcer
Subjective
Patient seen at bedside, doing well, had Rt L/E angiogram today , no new complaints.
Objective
Temp Pulse Resp BP Pulse Ox
97.5 F 73 18 154/70 92
07/11/24 07:37 07/11/24 11:53 07/11/24 07:37 07/11/24 11:53 07/11/24 07:37
07/11/24 08:58
07/11/24 08:58
Vital Signs and Lab results were reviewed.
Rt foot Intact vascular status
Rt foot decreased edema .
Rt foot surgical debrided site clean, dry, no bleeding, new healthy granulation noted, no exposed bone, no foul odor, no necrotic tissue. no crepitus felt, no signs of any abscess
no red streaking up the leg.
Rt dorsum foot with superficial discolored skin, no purulence , no exposed tendons, healing well
--- NOTE | 2024-07-11 16:00 | CS.PSYCHR ---
Consult Summary - Psychiatry
-
Pt is a 48 yo female with past medical history of CAD status post CABG, HFpEF, moderate aortic stenosis with aortic regurgitation, paroxysmal SVT, hypertension, type I diabetes, prior CVA, PAD, diabetic foot wound with suspected osteomyelitis status
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 Garcia for recurrent infection of the right foot with drainage.
Psychiatry asked to assess for depression. Pt noted with decreased po intake. Pt states she is trying to rest her kidneys, states she had worsening of Creatinine before when treated with antibiotics and her kidney function improved to where she
did not need to continue HD. Pt talked about all the difficulties in her life- marital, financial, medical. She states she feels 'depleted', has been in the hospital every few months for the past couple years. Pt reports vision loss in her right
eye, states she has never been the same after having Covid pneumonia and Guillain-[place] synd. Pt denies SI, denies need for medication for depression. Pt declined to have Psychiatry follow her, but appeared to appreciate the opportunity to talk.
Psych Hx: saw a psychologist in the past, has wellness checks. Denies hx of Psychiatric treatment.
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 Has several adopted children, has had many foster- children
MSE: alert, oriented, calm, cooperative. Mood/ Affect dysphoric/appropriate to situation. Speech coherent, thought clear/goal-directed. Denies SI. No signs of psychosis. Insight fair
Imp: Adjustment d/o with depression, appears to be coping okay overall. Pt declines psychiatric treatment
Rec: Outpatient therapy when medically stabilized
Psychiatry will sign off; please reconsult for any new concerns
--- NOTE | 2024-07-11 16:03 | PTCARENOTE ---
Attempted to give patient PRN hydralazine to manage BP (was 173/75) - patient refused. Educated about risks; patient did not want the medication at the moment.
[2024-07-11 16:44] VITALS: BMI 35.9
[2024-07-11 17:28] LABS: Glucose - Point of Care 111 mg/dl (70-99)
[2024-07-11] MEDS: LIPITOR 80 MG PO (17:52)
[2024-07-11 18:01] VITALS: BP 143/57
[2024-07-11 19:44] VITALS: BP 153/66
[2024-07-11] MEDS: HEPARIN 5000 UNITS SC (20:47)
[2024-07-11] MEDS: LANTUS 0.03 UNITS SC (22:11)
[2024-07-11 22:16] LABS: Glucose - Point of Care 151 mg/dl (70-99)
[2024-07-11 23:24] VITALS: BP 147/69
[2024-07-12] MEDS: ZOSYN 50 IV ×3 (05:04→22:14)
[2024-07-12] MEDS: IMODIUM 2 MG PO (05:09)
[2024-07-12 05:37] VITALS: BMI 35.9
[2024-07-12 07:30] VITALS: BP 141/66
--- NOTE | 2024-07-12 07:37 | PN.DE.MGMTRT ---
Insulin Management
- -
07/12/2024 Diabetes Management Consult Follow up
Patient admitted 07/04 for R foot wound with foul smelling drainage. PMH HTN, CKD, CHF, diabetes, CVA, s/p R 4th and 5th toe amputation, Guillain barre syndrome. Patient known to me from previous admissions. Prior to admission was taking lantus
4 units @ HS. A1C on admission 10%, cr 2.5, eGFR 23.14.
Cr 5, eGFR 10.07. Patient is awake alert and oriented able to discuss diabetes care.
s/p OR for debridement R foot wound 07/07, and vascular procedure 07/08 to R tibial artery.
Glucose improved 80 to 151, receiving no AC insulin 07/09, and , poor appetite or refused meals. Will continue HS lantus 3 units and AC novolog 3 units.
Will follow.
Diabetes History
- -
Type of Diabetes: 2 requiring insulin
Pre-Admission Diabetes Regimen
07/11/24
08:58
Creatinine 5.0 H*
Lab Results
Hemoglobin A1c 10.0 % (4.0-5.6) H 07/05/24 13:33
Insulin Pump Settings
IP Diabetes Regimen
07/11/24 07/11/24 07/11/24
08:58 12:16 17:26
Glucose 103 H
POC Glucose 80 111 H
07/11/24
22:03
Glucose
POC Glucose 151 H
Meal type: Dinner
Meal type: Breakfast
Amount consumed: 100%
Patient Education
[2024-07-12 08:05] LABS: Glucose - Point of Care 98 mg/dl (70-99)
[2024-07-12] MEDS: PLAVIX 75 MG PO (08:32)
[2024-07-12] MEDS: LOW STRENGTH ASPIRIN 81 MG PO (08:32)
[2024-07-12] MEDS: VISBIOME 1 CAP PO (08:32)
[2024-07-12] MEDS: COREG 3.125 MG PO ×2 (08:32→20:45)
[2024-07-12] MEDS: BUMEX PO (08:51)
[2024-07-12] MEDS: NOVOLOG FLEXPEN-LOW RESISTANCE SC ×3 (08:51→17:28)
[2024-07-12] MEDS: HEPARIN SC (08:52)
[2024-07-12 08:59] LABS: Hematocrit 34.5 % (37.0-47.0); Hemoglobin 11.2 g/dL (12.0-16.0); Mean Corp Hgb Conc. 32.5 g/dL (33.0-37.0); Mean Corpuscular Hgb 26.5 pg (27.0-31.0); Mean Corpuscular Volume 81.6 fL (81.0-99.0); Platelet Count 244 10^3/uL (130-400); Red Blood Cell Count 4.23 10^6/uL (4.20-5.40); Red Cell Dist. Width 19.8 % (11.5-14.5); White Blood Cell Count 6.9 10^3/uL (4.8-10.8)
--- NOTE | 2024-07-12 09:30 | W.PN.HOSP.TC ---
Today's Communication/Plan
-
Await labs
Assessment / Plan
Assessment / Plan
Gen-AAOx3, NAD
HEENT-NC, AT, anicteric, clear oral mm
Neck-supple
CV-reg, no M, +S1/S2
Lungs-clear B/L
Abd-soft, NT, ND
Ext-no edema
Musculoskeletal-no cyanosis, clubbing
Skin-warm and dry
Neuro-grossly non-focal
Psych-calm, cooperative
Right diabetic foot infection with acute osteomyelitis, confirmed on MRI
-Osteomyelitis of shaft of the residual fifth metatarsal
-Continue antibiotics per ID.
-Vascular surgery�s/p angioplasty and EMA to the right distal posterior to
-Podiatry following, s/p debridement and bone culture
PAD
-S/p angioplasty and stent to the right distal posterior tibial artery. Balloon angio to the right plantar artery, pedal arch, dorsal pedis arteries 07/08/2024
-Continue aspirin and Plavix
-Continue statin
Type 1 diabetes
-Continue long-acting insulin and sliding scale
-Carb controlled diet
-Accu-Cheks
-Accuchecks 140-180
-A1c 10%
-Diabetes [employer] managing the insulin
-Will need outpatient ophthalmology follow-up
CAD-S/p CABG
-Continue Statin and BB
Chronic HFpEF
-COntinue Bumex and BB
MARYLOU on CKD stage V -nephrology has recommended starting dialysis but patient wants to hold off as she anticipates her renal function will improve. She was on dialysis previously. Labs pending for today.
-Will likely need HD in the next 1-2 days
-Progressively getting worse
-Nonoliguric at this time
-Hyperkalemia resolved.
-Check urine creatinine protein urine analysis
-Consult nephrology
-Bladder scan
-Avoid nephrotoxins hypotension
-Expect function to get worse as plan for CT angiogram
Acute colitis -loose stools possibly related to antibiotics. Stool C. difficile and norovirus negative. Add Imodium as needed.
Chronic transaminitis
-Stable
Chronic hearing loss -as per patient report. Recommend outpatient audiogram, ENT follow-up. Unclear if related to medications.
Full code
Anticipated Discharge: Within 24 hours
Subjective/Interval History
-
Date of Service: July 12, 2024
Patient seen and examined. Complaining of fullness in ears, chronic hearing loss.
Objective Data
-
Labs:
Laboratory Results
07/12/24 07/12/24
08:49 08:50
WBC 6.9
Hgb 11.2 L
Hct 34.5 L
Plt Count 244
Sodium Pending
Potassium Pending
Chloride Pending
Carbon Dioxide Pending
BUN Pending
Creatinine Pending
Glucose Pending
Calcium Pending
Vital Signs:
Vital Signs
Temp Pulse Resp BP Pulse Ox
98.3 F 74 16 141/60 93
07/12/24 07:30 07/12/24 08:32 07/12/24 07:30 07/12/24 08:32 07/12/24 07:30
I&O
07/11/24 07/12/24 07/13/24
06:59 06:59 06:59
Intake Total 520 / 520 520 / 520
Output Total 350 / 350 465 / 465
Balance 170 / 170 55 / 55
Review of Systems
-
History Source: Patient
All other systems: Reviewed and negative
[2024-07-12 09:38] LABS: Blood Urea Nitrogen 79 mg/dl (7-17); Calcium 8.4 mg/dl (8.4-10.2); Carbon Dioxide 21 mmol/L (22-30); Chloride 101 mmol/L (98-107); Estimated Creatinine Clearance 14 ml/min; Glucose 99 mg/dl (70-99); Potassium 4.2 mmol/L (3.5-5.1); Sodium 135 mmol/L (135-145); eGFR 9.18
--- NOTE | 2024-07-12 10:38 | PTCARENOTE ---
Patient in bed this AM, appears comfortable, responds appropriately. She ordered breakfast. Discussed plan of care with patient. Given lab results from this AM notably with creatine trending up. After thinking it over, she states that she would like
to proceed with tunneled cath placement and hemodialysis. Nephrology and attending notified.
--- NOTE | 2024-07-12 10:50 | W.PN.NEPH.PH ---
Today's Communication / Plan
-
Pending decision for dialysis
Follow BMP
Assessment/Plan
-
Impression:
MARYLOU/CKD 4 (previously dialysis dependent up until 8 weeks ago)
Open wound/diabetic foot infection of right lateral foot possible osteomyelitis status post angiogram with stent placement on 07/08/2024
History of right diabetic foot infection status post fifth toe amputation on 12/06 and revision fourth toe amputation on 12/13
Peripheral arterial disease status post diagnostic arteriogram, intravascular lithotripsy of the posterior tibial artery and proximal SFA, balloon angioplasty and nitroglycerin injection of posterior tibial artery on 12/21/23
Chronic transaminitis
Type 1 diabetes
ESRD on hemodialysis Thursday and Thursday (stopped two months prior)
Chronic HFpEF
chronic anemia
Moderate aortic stenosis/aortic regurgitation
Mild to moderate mitral stenosis
Paroxysmal SVT
Iron deficiency anemia
History of CVA
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
PLan:
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
now worsening renal function cr 5.4 with low UOP on bumex
UA bland and proteinuria 3gm/gm of cr likely from diabetic nephropathy-similar presentation in December too
MARYLOU likely exacerbated by underlying infection possible antibiotic administration and contrast administration following angiogram and stent placement 07/08 of right lower extremity
We reviewed again in detail about need of HD , after long discussion she needs to still make a decision
The patient will tell me that yes she is going to have the procedure done then changes her mind
I honestly do not know what else I can do
I will only contact IR when she is definitive with her intent as IR is very busy and tomorrow will be performing multiple services for ESRD patient
Although her creatinine is up to 5.4 there is no emergent need for dialysis today
I did explain to her in detail that I think dialysis will be needed long-term for her care given her compromised GFR and hypervolemia
dose meds renally
Follow BMP tomorrow
-
-
Date of Service: July 12, 2024
CC / HPI / ROS
-
Chief Complaint:
MARYLOU, CKD
History of Present Illness:
cr up at 5.4 , k normal, bicarb 24
BP stable
Remains on Zosyn renally dosed for foot wound
Review of Systems:
no cp or sob
no n/v
has diarrhea
Weight stable
Labs
-
Labs:
WBC 6.9 10^3/uL (4.8-10.8) 07/12/24 08:49
RBC 4.23 10^6/uL (4.20-5.40) 07/12/24 08:49
Hgb 11.2 g/dL (12.0-16.0) L 07/12/24 08:49
Hct 34.5 % (37.0-47.0) L 07/12/24 08:49
Plt Count 244 10^3/uL (130-400) 07/12/24 08:49
Sodium 135 mmol/L (135-145) 07/12/24 08:50
Potassium 4.2 mmol/L (3.5-5.1) 07/12/24 08:50
Chloride 101 mmol/L (98-107) 07/12/24 08:50
Carbon Dioxide 21 mmol/L (22-30) L 07/12/24 08:50
BUN 79 mg/dl (7-17) H 07/12/24 08:50
Creatinine 5.4 mg/dL (0.6-1.0) H* 07/12/24 08:50
eGFR 9.18 07/12/24 08:50
Glucose 99 mg/dl (70-99) 07/12/24 08:50
Calcium 8.4 mg/dl (8.4-10.2) 07/12/24 08:50
Albumin 2.9 g/dl (3.5-5.0) L 07/08/24 07:56
Physical Exam
-
Vital Signs:
Vital Signs
Temp Pulse Resp BP Pulse Ox
98.3 F 74 16 141/60 93
07/12/24 07:30 07/12/24 08:32 07/12/24 07:30 07/12/24 08:32 07/12/24 07:30
Cardiovascular:: Regular rate and rhythm
Extremity Edema:: +1: Bilateral:
[2024-07-12 12:09] LABS: Glucose - Point of Care 103 mg/dl (70-99)
--- NOTE | 2024-07-12 14:28 | W.PN.ID1 ---
Date of Service
Date of Service: July 12, 2024
Today's Communication
Continue antibiotics.
Assessment / Plan
Right foot osteomyelitis
- Recovered K. aerogenes, E. cloacae, E. faecalis, MSSA
Right foot SSTI with gangrene
- s/p debridement and bone resection form Rt 5th metatarsal (07/07/24)
Elevated ESR
CKD stage IV (Hx of prior HD, but now off)
IDDM (uncontrolled; HbA1c = 10.1 on 02/16/24, 10.0 on 07/05/24)
PAD
Functional immunosuppression
Diastolic CHF
Anemia
Hx CVA
Paroxysmal SVT
Hx Guillain-Song� with chronic LLE weakness
Recommendations:
Continue with empiric zosyn; dose adjusted for CKD stage IV / V
S/P right foot revision. S/P angiography, angioplasty and stent placement.
Path has been finalized, and shows focal acute osteomyelitis, although unclear whether this is a 'proximal margin' or the suspected area of infection.
Will discuss with Podiatry to determine whether all of the fifth metatarsal was resected.
If no residual osteomyelitis, would complete a 2-week course (currently day #6).
If not all osteomyelitis resected, patient would either benefit from further resection, or a 6-week course of IV antibiotics.
Given uncontrolled diabetes, peripheral vascular disease and CKD, patient in an extremely high risk situation for limb loss.
����������������������������������������������������������
Chief Complaint
-: Other (Right foot wound infection; right fifth metatarsal osteomyelitis)
Subjective / Review of Systems
Review of Systems: No Fever and No Chills
Vital Signs / Physical Exam
Vital Signs
Vital Signs
Temp Pulse Resp BP Pulse Ox
98.3 F 74 16 141/60 93
07/12/24 07:30 07/12/24 08:32 07/12/24 07:30 07/12/24 08:32 07/12/24 07:30
Physical Exam
Constitutional: No Acute Distress, Comfortable, Chronically Ill and Non-toxic
Eyes: Sclera Anicteric
Cardiovascular: S1/S2; Negative S3/S4
Pulmonary: Clear and Non Labored
Gastrointestinal: Soft and Non Distended
Skin: Warm and Dry; Negative Rash or Jaundice
Wound: Other (Right foot dressed in gerri. No strikethrough)
Neurological: AO x 3
Psychological: Calm
Objective Data
Lab Data
Lab Results
07/12/24 08:49
07/12/24 08:50
ESR 62 mm/hour (0-20) H 07/04/24 12:20
Estimated Creat Clear 14 ml/min 07/12/24 08:50
Total Bilirubin 0.4 mg/dl (0.2-1.3) 07/08/24 07:56
AST 38 U/L (14-36) H 07/08/24 07:56
ALT 32 U/L (0-35) 07/08/24 07:56
Alkaline Phosphatase 516 U/L (38-126) H 07/08/24 07:56
C-Reactive Protein 10.30 mg/L (0.0-10.00) H 07/04/24 12:20
Most recent labs reviewed.
Micro Results:
07/07/24 15:25 Tissue Culture - Final
Toe Enterococcus faecalis
S aureus-Methicillin Sensitive
Streptococcus species
Viridans Streptococcus Group
Gram Stain - Final
07/07/24 15:25 Anaerobic Culture - Preliminary
Foot - Right Culture pending. Anaerobic cultures are examined after 3
days incubation. Additional information to follow.
07/07/24 15:25 Wound Culture - Preliminary
Foot - Right Enterococcus faecalis
Streptococcus species
Viridans Streptococcus Group
Gram Stain - Preliminary
07/08/24 03:15 C. difficile GDH Antigen & Toxins - Final
Feces/Stool Negative for toxigenic C.difficile
- Final
Negative for Norovirus GI and GII.
07/04/24 17:23 MRSA Screen - Final
Nose Staph aureus MRSA
Wound/abscess/other Cult Final 02/17/2024
Few Klebsiella aerogenes
Few second Enterobacter cloacae
Moderate Enterococcus faecalis
Moderate S aureus-Methicillin Sensitive
Organism 1 Klebsiella aerogenes
Organism 2 Enterobacter cloacae
Organism 3 Enterococcus faecalis
Organism 4 S aureus-Methicillin Sensitive
KLEAER E.CLOACAE ENTFCL
M.I.C. RX M.I.C. RX M.I.C. RX
--------- --- --------- --- --------- ---
Amoxicillin/Potas. Clavulanate 16/8 R >16/8 R
Ampicillin >16 R >16 R <=2 S
Ampicillin/Sulbactam 8/4 R 8/4 R
Aztreonam <=4 S <=4 S
Cefazolin 8 R >16 R
Cefepime <=2 S <=2 S
Ceftazidime <=1 S <=1 S
Ceftriaxone <=1 S <=1 S
Clindamycin
Ertapenem <=0.5 S <=0.5 S
Ciprofloxacin <=0.25 S <=0.25 S <=1 S
Gentamicin <=2 S <=2 S
Gentamicin Synergy Screen <=500 S
Erythromycin
Levofloxacin
Oxacillin
Meropenem <=1 S <=1 S
Piperacillin/Tazobactam <=8 S <=8 S
Tetracycline <=4 S <=4 S
Tobramycin <=2 S <=2 S
Trimethoprim/Sulfamethoxazole <=2/38 S <=2/38 S
Vancomycin 2 S
MSSA
M.I.C. RX
--------- ---
Amoxicillin/Potas. Clavulanate <=4/2 S
Ampicillin >8 R
Ampicillin/Sulbactam
Aztreonam
Cefazolin
Cefepime
Ceftazidime
Ceftriaxone
Clindamycin <=0.5 S
Ertapenem
Ciprofloxacin
Gentamicin <=4 S
Gentamicin Synergy Screen
Erythromycin <=0.5 S
Levofloxacin <=1 S
Oxacillin 0.5 S
Meropenem
Piperacillin/Tazobactam
Tetracycline <=4 S
Tobramycin
Trimethoprim/Sulfamethoxazole <=0.5/9.5 S
Vancomycin 1 S
Imaging:
07/05/2024 MRI right lower extremity: Postoperative changes of fourth and fifth partial ray amputation. There are findings of infection and soft tissue defect along the residual lateral soft tissues of the foot. There is associated underlying acute
osteomyelitis of the shaft of the residual fifth metatarsal.
07/04/2024 X-ray right foot: Cortical irregularity with bone loss at the level of the osteotomy site the right fifth metatarsal in the interval since most recent prior radiograph, at least suspicious for osteomyelitis.
Pathology:
07/07/2024 Bone, right fifth metatarsal, resection: Focal acute osteomyelitis in a background of reactive and remodeling changes. Clinical correlation and correlation with microbiologic studies recommended.
[2024-07-12 16:00] VITALS: BP 158/75
--- NOTE | 2024-07-12 16:11 | CM ---
Reviewed the chart notes and spoke with the patient at the bedside. Patient considering if HD will need to be restarted. If HD restarted will need assistance with transportation. CM continues to be available to patient/family and is monitoring
medical plan for needs at discharge.
Plan: Discharge plans will depend on the patient's progress.
[2024-07-12 16:34] LABS: Glucose - Point of Care 119 mg/dl (70-99)
[2024-07-12] MEDS: LIPITOR 80 MG PO (18:30)
[2024-07-12] MEDS: HEPARIN 5000 UNITS SC (20:46)
[2024-07-12] MEDS: LANTUS SC (21:43)
[2024-07-12 21:46] LABS: Glucose - Point of Care 85 mg/dl (70-99)
[2024-07-12 23:35] VITALS: BP 172/84
[2024-07-13] VITALS: BP 168/80
[2024-07-13] MEDS: IMODIUM 2 MG PO ×3 (00:15→14:02)
[2024-07-13] MEDS: ZOSYN 50 IV ×3 (05:00→23:11)
[2024-07-13 05:30] VITALS: BMI 35.7
[2024-07-13 07:00] VITALS: BP 168/72
[2024-07-13 07:03] LABS: Glucose - Point of Care 66 mg/dl (70-99)
[2024-07-13] MEDS: NOVOLOG FLEXPEN-LOW RESISTANCE SC ×3 (07:49→16:52)
[2024-07-13] MEDS: PLAVIX 75 MG PO (07:49)
[2024-07-13] MEDS: VISBIOME 1 CAP PO (07:49)
[2024-07-13] MEDS: COREG 3.125 MG PO ×2 (07:50→20:29)
--- NOTE | 2024-07-13 07:50 | PN.DE.MGMTRT ---
Insulin Management
- -
07/13/2024 Diabetes Management Consult Follow up
Patient admitted 07/04 for R foot wound with foul smelling drainage. PMH HTN, CKD, CHF, diabetes, CVA, s/p R 4th and 5th toe amputation, Guillain barre syndrome. Patient known to me from previous admissions. Prior to admission was taking lantus
4 units @ HS. A1C on admission 10%, cr 2.5, eGFR 23.14.
Cr 5.4, eGFR 9.18 07/12/2024. Patient is awake alert and oriented able to discuss diabetes care.
s/p OR for debridement R foot wound 07/07, and vascular procedure 07/08 to R tibial artery.
Glucose stable 85 to 119, receiving no AC insulin 07/09, , 6, and 7 poor appetite or refused meals. Last HS glucose 85, patient refused hs lantus 3 units, Fasting glucose 66. Will continue HS lantus 3 units and AC novolog 3 units but patient
often refuses.
Will follow.
Diabetes History
- -
Type of Diabetes: 2 requiring insulin
Pre-Admission Diabetes Regimen
07/12/24
08:50
Creatinine 5.4 H*
Lab Results
Hemoglobin A1c 10.0 % (4.0-5.6) H 07/05/24 13:33
Insulin Pump Settings
IP Diabetes Regimen
07/12/24 07/12/24 07/12/24
08:03 08:50 12:08
Glucose 99
POC Glucose 98 103 H
07/12/24 07/12/24 07/13/24
16:32 21:39 07:01
Glucose
POC Glucose 119 H 85 66 L
Meal type: Breakfast
Amount consumed: 60%
Patient Education
[2024-07-13] MEDS: HEPARIN SC (07:51)
[2024-07-13] MEDS: LOW STRENGTH ASPIRIN 81 MG PO (07:51)
[2024-07-13 07:58] LABS: Glucose - Point of Care 73 mg/dl (70-99)
[2024-07-13] MEDS: BUMEX PO (07:59)
--- NOTE | 2024-07-13 09:28 | W.PN.HOSP.TC ---
Today's Communication/Plan
-
BMP
Assessment / Plan
Assessment / Plan
Gen-AAOx3, NAD
HEENT-NC, AT, anicteric, clear oral mm
Neck-supple
CV-reg, no M, +S1/S2
Lungs-clear B/L
Abd-soft, NT, ND
Ext-no edema
Musculoskeletal-no cyanosis, clubbing
Skin-warm and dry
Neuro-grossly non-focal
Psych-calm, cooperative
Right diabetic foot infection with acute osteomyelitis, confirmed on MRI
-Osteomyelitis of shaft of the residual fifth metatarsal
-Continue antibiotics per ID.
-Vascular surgery�s/p angioplasty and EMA to the right distal posterior to
-Podiatry following, s/p debridement and bone culture. Podiatry confident that all infection removed with surgery. ID recommending 2 weeks of antibiotics.
PAD
-S/p angioplasty and stent to the right distal posterior tibial artery. Balloon angio to the right plantar artery, pedal arch, dorsal pedis arteries 07/08/2024
-Continue aspirin and Plavix
-Continue statin
Type 1 diabetes
-Continue long-acting insulin and sliding scale
-Carb controlled diet
-Accu-Cheks
-Accuchecks 140-180
-A1c 10%
-Diabetes [employer] managing the insulin
-Will need outpatient ophthalmology follow-up
CAD-S/p CABG
-Continue Statin and BB
Chronic HFpEF
-COntinue Bumex and BB
MARYLOU on CKD stage V -nephrology has recommended starting dialysis but patient wants to hold off as she anticipates her renal function will improve. She was on dialysis previously. Labs pending for today.
-Will likely need HD in the next 1-2 days
-Progressively getting worse
-Nonoliguric at this time
-Hyperkalemia resolved.
-Check urine creatinine protein urine analysis
-Consult nephrology
-Bladder scan
-Avoid nephrotoxins hypotension
-Expect function to get worse as plan for CT angiogram
Acute colitis -loose stools possibly related to antibiotics. Stool C. difficile and norovirus negative. Add Imodium as needed.
Chronic transaminitis
-Stable
Chronic hearing loss -as per patient report. Recommend outpatient audiogram, ENT follow-up. Unclear if related to medications.
Full code
Anticipated Discharge: > 48 hours
Subjective/Interval History
-
Date of Service: July 13, 2024
Patient seen and examined. No complaints.
Objective Data
-
Vital Signs:
Vital Signs
Temp Pulse Resp BP Pulse Ox
98.1 F 77 16 168/72 100
07/13/24 07:00 07/13/24 07:00 07/13/24 07:00 07/13/24 07:00 07/13/24 07:00
I&O
07/12/24 07/13/24 07/14/24
06:59 06:59 06:59
Intake Total 520 / 520 1010 / 1010
Output Total 465 / 465 795 / 795
Balance 55 / 55 215 / 215
Review of Systems
-
History Source: Patient
All other systems: Reviewed and negative
[2024-07-13 10:31] LABS: Glucose - Point of Care 71 mg/dl (70-99)
[2024-07-13 10:37] LABS: Blood Urea Nitrogen 73 mg/dl (7-17); Calcium 8.8 mg/dl (8.4-10.2); Carbon Dioxide 22 mmol/L (22-30); Chloride 100 mmol/L (98-107); Estimated Creatinine Clearance 14 ml/min; Glucose 80 mg/dl (70-99); Potassium 4.2 mmol/L (3.5-5.1); Sodium 135 mmol/L (135-145); eGFR 9.39
--- NOTE | 2024-07-13 11:34 | PTCARENOTE ---
This RN received two calls from [facility] looking to make this pt NPO for placement of a line to begin HD. Per overnight RN, pt not sure if she is agreeable to HD yet, in conversation with this RN pt has stated she is 'not ready and cannot make a
decisions yet.' Pt visibly flat and emotional. MD and nephrology made aware, no new orders at this time.
[2024-07-13 11:39] LABS: Glucose - Point of Care 82 mg/dl (70-99)
--- NOTE | 2024-07-13 14:31 | W.PN.ID1 ---
Date of Service
Date of Service: July 13, 2024
Today's Communication
Continue antibiotics.
Assessment / Plan
Right foot osteomyelitis
- Recovered K. aerogenes, E. cloacae, E. faecalis, MSSA
Right foot SSTI with gangrene
- s/p debridement and bone resection form Rt 5th metatarsal (07/07/24)
Elevated ESR
CKD stage IV (Hx of prior HD, but now off)
IDDM (uncontrolled; HbA1c = 10.1 on 02/16/24, 10.0 on 07/05/24)
PAD
Functional immunosuppression
Diastolic CHF
Anemia
Hx CVA
Paroxysmal SVT
Hx Guillain-Song� with chronic LLE weakness
Recommendations:
Continue with zosyn; dose adjusted for CKD stage IV / V
S/P right foot revision. S/P angiography, angioplasty and stent placement.
Path has been finalized, and shows focal acute osteomyelitis, although unclear whether this is a 'proximal margin' or the suspected area of infection.
Plain film has been reviewed, and I am concerned about residual bony fragments as a nidus of further infection. Will discuss further with Podiatry.
I have discussed possible treatment courses with Shea. These would include a full 6-week course of IV antibiotics versus 2-week course of IV antibiotics (or thereabouts) followed by a prolonged course of oral antibiotics directed at recovered
organisms versus 2 weeks of antibiotics alone and then discontinuation. I have asked her to think about these options. I have counseled her on the risks and benefits of each treatment course extensively. Her preliminary decision is to go with a
prolonged course of oral antibiotics, but I will revisit this with her the next time I see her.
Given uncontrolled diabetes, peripheral vascular disease and CKD, patient in an extremely high risk situation for limb loss.
����������������������������������������������������������
Chief Complaint
-: Other (Right foot wound infection; right fifth metatarsal osteomyelitis)
Subjective / Review of Systems
Review of Systems: No Fever and No Chills
Vital Signs / Physical Exam
Vital Signs
Vital Signs
Temp Pulse Resp BP Pulse Ox
98.1 F 77 16 168/72 100
07/13/24 07:00 07/13/24 07:50 07/13/24 07:00 07/13/24 07:50 07/13/24 10:18
Physical Exam
Constitutional: No Acute Distress, Comfortable, Chronically Ill and Non-toxic
Eyes: Sclera Anicteric
Cardiovascular: S1/S2; Negative S3/S4
Pulmonary: Clear and Non Labored
Gastrointestinal: Soft and Non Distended
Skin: Warm and Dry; Negative Rash or Jaundice
Wound: Other (Right foot dressed in gerri. No strikethrough)
Neurological: AO x 3
Psychological: Calm
Objective Data
Lab Data
Lab Results
07/12/24 08:49
07/13/24 09:47
ESR 62 mm/hour (0-20) H 07/04/24 12:20
Estimated Creat Clear 14 ml/min 07/13/24 09:47
Total Bilirubin 0.4 mg/dl (0.2-1.3) 07/08/24 07:56
AST 38 U/L (14-36) H 07/08/24 07:56
ALT 32 U/L (0-35) 07/08/24 07:56
Alkaline Phosphatase 516 U/L (38-126) H 07/08/24 07:56
C-Reactive Protein 10.30 mg/L (0.0-10.00) H 07/04/24 12:20
Most recent labs reviewed.
Micro Results:
07/07/24 15:25 Wound Culture - Final
Foot - Right Enterococcus faecalis
Streptococcus species
Viridans Streptococcus Group
Gram Stain - Final
07/07/24 15:25 Anaerobic Culture - Final
Foot - Right Anaerobic gram positive cocci
07/07/24 15:25 Tissue Culture - Final
Toe Enterococcus faecalis
S aureus-Methicillin Sensitive
Streptococcus species
Viridans Streptococcus Group
Gram Stain - Final
07/08/24 03:15 C. difficile GDH Antigen & Toxins - Final
Feces/Stool Negative for toxigenic C.difficile
- Final
Negative for Norovirus GI and GII.
07/04/24 17:23 MRSA Screen - Final
Nose Staph aureus MRSA
Wound/abscess/other Cult Final 02/17/2024
Few Klebsiella aerogenes
Few second Enterobacter cloacae
Moderate Enterococcus faecalis
Moderate S aureus-Methicillin Sensitive
Organism 1 Klebsiella aerogenes
Organism 2 Enterobacter cloacae
Organism 3 Enterococcus faecalis
Organism 4 S aureus-Methicillin Sensitive
KLEAER E.CLOACAE ENTFCL
M.I.C. RX M.I.C. RX M.I.C. RX
--------- --- --------- --- --------- ---
Amoxicillin/Potas. Clavulanate 16/8 R >16/8 R
Ampicillin >16 R >16 R <=2 S
Ampicillin/Sulbactam 8/4 R 8/4 R
Aztreonam <=4 S <=4 S
Cefazolin 8 R >16 R
Cefepime <=2 S <=2 S
Ceftazidime <=1 S <=1 S
Ceftriaxone <=1 S <=1 S
Clindamycin
Ertapenem <=0.5 S <=0.5 S
Ciprofloxacin <=0.25 S <=0.25 S <=1 S
Gentamicin <=2 S <=2 S
Gentamicin Synergy Screen <=500 S
Erythromycin
Levofloxacin
Oxacillin
Meropenem <=1 S <=1 S
Piperacillin/Tazobactam <=8 S <=8 S
Tetracycline <=4 S <=4 S
Tobramycin <=2 S <=2 S
Trimethoprim/Sulfamethoxazole <=2/38 S <=2/38 S
Vancomycin 2 S
MSSA
M.I.C. RX
--------- ---
Amoxicillin/Potas. Clavulanate <=4/2 S
Ampicillin >8 R
Ampicillin/Sulbactam
Aztreonam
Cefazolin
Cefepime
Ceftazidime
Ceftriaxone
Clindamycin <=0.5 S
Ertapenem
Ciprofloxacin
Gentamicin <=4 S
Gentamicin Synergy Screen
Erythromycin <=0.5 S
Levofloxacin <=1 S
Oxacillin 0.5 S
Meropenem
Piperacillin/Tazobactam
Tetracycline <=4 S
Tobramycin
Trimethoprim/Sulfamethoxazole <=0.5/9.5 S
Vancomycin 1 S
Imaging:
07/12/2024 X-ray right foot: Since study dated 07/04/2024, there has been further resection of the right fifth metatarsal bone there is remaining approximately 2.7 cm of proximal fifth metatarsal shaft. Adjacent to the distal aspect of the remaining
fifth metatarsal bone there are multiple small bony fragments, probably bony fragments from previous resection. No gross evidence for bony destruction involving the fifth metatarsal bone. Please see full dictation for additional detail. Film
personally viewed.
07/05/2024 MRI right lower extremity: Postoperative changes of fourth and fifth partial ray amputation. There are findings of infection and soft tissue defect along the residual lateral soft tissues of the foot. There is associated underlying acute
osteomyelitis of the shaft of the residual fifth metatarsal.
07/04/2024 X-ray right foot: Cortical irregularity with bone loss at the level of the osteotomy site the right fifth metatarsal in the interval since most recent prior radiograph, at least suspicious for osteomyelitis.
Pathology:
07/07/2024 Bone, right fifth metatarsal, resection: Focal acute osteomyelitis in a background of reactive and remodeling changes. Clinical correlation and correlation with microbiologic studies recommended.
[2024-07-13 15:26] VITALS: BP 189/82
[2024-07-13 15:30] VITALS: BP 189/82; PULSE 76; O2SAT 95
--- NOTE | 2024-07-13 15:36 | CM ---
Reviewed the chart notes. Per notes, patient was to had tunneled HD cath placed today by IR, but patient declined at this time. Patient considering if HD will need to be restarted. If HD restarted will need assistance with transportation. CM
continues to be available to patient/family and is monitoring medical plan for needs at discharge.
Plan: Discharge plans will depend on the patient's progress.
[2024-07-13] MEDS: APRESOLINE 5 MG IV (15:38)
[2024-07-13 16:46] LABS: Glucose - Point of Care 83 mg/dl (70-99)
--- NOTE | 2024-07-13 17:04 | W.PN.NEPH.PH ---
Today's Communication / Plan
-
HD when pt agrees and not cancels catheter placement
Assessment/Plan
-
Impression:
MARYLOU/CKD 4 (previously dialysis dependent up until 8 weeks ago)
Open wound/diabetic foot infection of right lateral foot possible osteomyelitis status post angiogram with stent placement on 07/08/2024
History of right diabetic foot infection status post fifth toe amputation on 12/06 and revision fourth toe amputation on 12/13
Peripheral arterial disease status post diagnostic arteriogram, intravascular lithotripsy of the posterior tibial artery and proximal SFA, balloon angioplasty and nitroglycerin injection of posterior tibial artery on 12/21/23
Chronic transaminitis
Type 1 diabetes
ESRD on hemodialysis Thursday and Thursday (stopped two months prior)
Chronic HFpEF
chronic anemia
Moderate aortic stenosis/aortic regurgitation
Mild to moderate mitral stenosis
Paroxysmal SVT
Iron deficiency anemia
History of CVA
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
PLan:
MARYLOU: previously HD dependant, reportedly off 2months [employer]
UA bland and proteinuria 3gm/gm of cr likely from diabetic nephropathy-similar presentation in December too
no change in cr 5.3, UOP improving but unlikely will be sufficient enough to improve edema
she is almost anasarca state and refusing to have dialysis,she cancelled IR HD catheter placement again today after consenting first and then cancels later-twice this admit
She had discussions about starting dialysis with multiple providers for last several days and she still refuses HD
at this point I dont have much to offer her
Reviewed with pt that with out dialysis she is at high risk of mortality
I honestly do not know what else I can do
She is significantly vol overload 15kg over from last d/c
dose meds renally
Follow labs
d/w primary and nursing
-
-
Date of Service: July 13, 2024
CC / HPI / ROS
-
Chief Complaint:
MARYLOU, CKD
History of Present Illness:
cr up at 5.3 , k normal, bicarb 22
BP are high
Remains on Zosyn renally dosed for foot wound
Review of Systems:
no cp or sob
no n/v
Weight stable
Labs
-
Labs:
WBC 6.9 10^3/uL (4.8-10.8) 07/12/24 08:49
RBC 4.23 10^6/uL (4.20-5.40) 07/12/24 08:49
Hgb 11.2 g/dL (12.0-16.0) L 07/12/24 08:49
Hct 34.5 % (37.0-47.0) L 07/12/24 08:49
Plt Count 244 10^3/uL (130-400) 07/12/24 08:49
Sodium 135 mmol/L (135-145) 07/13/24 09:47
Potassium 4.2 mmol/L (3.5-5.1) 07/13/24 09:47
Chloride 100 mmol/L (98-107) 07/13/24 09:47
Carbon Dioxide 22 mmol/L (22-30) 07/13/24 09:47
BUN 73 mg/dl (7-17) H 07/13/24 09:47
Creatinine 5.3 mg/dL (0.6-1.0) H* 07/13/24 09:47
eGFR 9.39 07/13/24 09:47
Glucose 80 mg/dl (70-99) 07/13/24 09:47
Calcium 8.8 mg/dl (8.4-10.2) 07/13/24 09:47
Albumin 2.9 g/dl (3.5-5.0) L 07/08/24 07:56
Physical Exam
-
Vital Signs:
Vital Signs
Temp Pulse Resp BP Pulse Ox
97.4 F 73 12 189/82 95
07/13/24 15:26 07/13/24 15:38 07/13/24 15:26 07/13/24 15:38 07/13/24 15:26
Cardiovascular:: Regular rate and rhythm
Respiratory:: Bilateral: Rales
Lung Excursion:: Normal
Abdomen:: Nontender and Soft
Extremity Edema:: +3: Bilateral:
Whitmore Catheter: No
[2024-07-13] MEDS: LIPITOR 80 MG PO (17:05)
--- NOTE | 2024-07-13 17:45 | W.PN.POD ---
Today's Communication
Today's Communication
Patient will f/u in my office after discharge in 1 wk
Patient stable per podiatry
Assessment / Plan
-
Rt foot S/p debridement with bone resection from Rt 5th metatarsal 07/07/2024 POD #6
Diabetic small vessel disease - Patient is S/P Angiogram Rt L/E with stents on 07/08/24
PAD
Diabetic neuropathy.
Plan ; Changed dressings to Rt foot , applied compressive dressings to Rt foot Rt foot noted to be healing well with granulation
Reviewed post op xray Rt foot , shows 5th met shaft bone fragments, which were embedded in the soft tissue, which may not pose risk of infection, so no further surgical intervention by podiatry. Podiatry Decided to leave them alone
WbC count WNL
IV abx per ID
Can wt bear as tolerated with walker to bathroom
Surgical shoe to Rt foot .
Subjective
Chief Complaint
Rt foot infected ulcer
Subjective
Patient seen at bedside, doing well, had Rt L/E angiogram with stents on 07/08/24, no new complaints.
Objective
Temp Pulse Resp BP Pulse Ox
97.4 F 73 12 189/82 95
07/13/24 15:26 07/13/24 15:38 07/13/24 15:26 07/13/24 15:38 07/13/24 15:26
07/12/24 08:49
07/13/24 09:47
Vital Signs and Lab results were reviewed.
Rt foot Intact vascular status
Rt foot edematous .
Rt foot surgical debrided site clean, dry, no bleeding, new healthy granulation noted, no exposed bone, no foul odor, no necrotic tissue. no crepitus felt, no signs of any abscess
no red streaking up the leg.
Rt dorsum foot with superficial discolored skin, no purulence , no exposed tendons, healing well
--- NOTE | 2024-07-13 18:15 | PTCARENOTE ---
Pts BP at 1500 VS was 189/82. PRN hydralazine administered. Pt not allowing RN or PCT to recheck BP upon multiple attempts. Oncoming RN to be made aware.
[2024-07-13] MEDS: HEPARIN 5000 UNITS SC (20:29)
[2024-07-13 20:52] LABS: Glucose - Point of Care 83 mg/dl (70-99)
[2024-07-13] MEDS: LANTUS SC (22:01)
[2024-07-13 23:02] VITALS: BP 152/75
[2024-07-14 02:47] LABS: Glucose - Point of Care 77 mg/dl (70-99)
[2024-07-14] MEDS: ZOSYN 50 IV (05:49)
[2024-07-14 06:00] VITALS: BMI 35.0
[2024-07-14] MEDS: IMODIUM 2 MG PO (06:14)
[2024-07-14 07:30] VITALS: BP 155/64
[2024-07-14 07:46] LABS: Blood Urea Nitrogen 72 mg/dl (7-17); Calcium 8.4 mg/dl (8.4-10.2); Carbon Dioxide 19 mmol/L (22-30); Chloride 102 mmol/L (98-107); Estimated Creatinine Clearance 17 ml/min; Glucose 73 mg/dl (70-99); Potassium 4.1 mmol/L (3.5-5.1); Sodium 136 mmol/L (135-145); eGFR 12.07
--- NOTE | 2024-07-14 07:53 | PN.DE.MGMTRT ---
Insulin Management
- -
07/14/2024 Diabetes Management Consult Follow up
Patient admitted 07/04 for R foot wound with foul smelling drainage. PMH HTN, CKD, CHF, diabetes, CVA, s/p R 4th and 5th toe amputation, Guillain barre syndrome. Patient known to me from previous admissions. Prior to admission was taking lantus
4 units @ HS. A1C on admission 10%, cr 2.5, eGFR 23.14.
Cr 4.3, eGFR 12.07 07/14/2024. Patient is awake alert and oriented able to discuss diabetes care.
s/p OR for debridement R foot wound 07/07, and vascular procedure 07/08 to R tibial artery.
Glucose stable 66 to 83, receiving no AC insulin 07/09, 5, 6, 7 and 8 poor appetite or refused insulin. Last HS glucose 83, patient refused hs lantus 3 units, Fasting glucose 73. Will continue HS lantus 3 units and AC novolog 3 units but patient
often refuses.
Will follow.
Diabetes History
- -
Type of Diabetes: 2 requiring insulin
Pre-Admission Diabetes Regimen
07/13/24 07/14/24
09:47 06:49
Creatinine 5.3 H* 4.3 H*
Lab Results
Hemoglobin A1c 10.0 % (4.0-5.6) H 07/05/24 13:33
Insulin Pump Settings
IP Diabetes Regimen
07/13/24 07/13/24 07/13/24
07:57 09:47 10:30
Glucose 80
POC Glucose 73 71
07/13/24 07/13/24 07/13/24
11:37 16:44 20:48
Glucose
POC Glucose 82 83 83
07/14/24 07/14/24
02:44 06:49
Glucose 73
POC Glucose 77
Meal type: Lunch
Meal type: Breakfast
Amount consumed: 0
Amount consumed: 0
Patient Education
[2024-07-14] MEDS: VISBIOME 1 CAP PO (08:13)
[2024-07-14] MEDS: COREG 3.125 MG PO (08:13)
[2024-07-14] MEDS: PLAVIX 75 MG PO (08:13)
[2024-07-14] MEDS: LOW STRENGTH ASPIRIN 81 MG PO (08:13)
[2024-07-14] MEDS: HEPARIN SC (08:13)
[2024-07-14] MEDS: BUMEX PO (08:14)
[2024-07-14 08:37] LABS: Glucose - Point of Care 68 mg/dl (70-99)
[2024-07-14] MEDS: NOVOLOG FLEXPEN-LOW RESISTANCE SC ×2 (08:39→12:36)
[2024-07-14 09:11] LABS: Glucose - Point of Care 68 mg/dl (70-99)
[2024-07-14 09:38] LABS: Glucose - Point of Care 79 mg/dl (70-99)
--- NOTE | 2024-07-14 09:39 | W.PN.HOSP.TC ---
Today's Communication/Plan
-
Await ID input regarding possible discharge
Assessment / Plan
Assessment / Plan
Gen-AAOx3, NAD
HEENT-NC, AT, anicteric, clear oral mm
Neck-supple
CV-reg, no M, +S1/S2
Lungs-clear B/L
Abd-soft, NT, ND
Ext-bilateral lower extremity edema
Musculoskeletal-no cyanosis, clubbing
Skin-warm and dry
Neuro-grossly non-focal
Psych-calm, cooperative
Right diabetic foot infection with acute osteomyelitis, confirmed on MRI
-Osteomyelitis of shaft of the residual fifth metatarsal
-Continue antibiotics per ID.
-Vascular surgery�s/p angioplasty and EMA to the right distal posterior to
-Podiatry following, s/p debridement and bone culture. Podiatry confident that all infection removed with surgery. ID recommending 2 weeks of antibiotics.
PAD
-S/p angioplasty and stent to the right distal posterior tibial artery. Balloon angio to the right plantar artery, pedal arch, dorsal pedis arteries 07/08/2024
-Continue aspirin and Plavix
-Continue statin
Type 1 diabetes
-Continue long-acting insulin and sliding scale
-Carb controlled diet
-Accu-Cheks
-Accuchecks 140-180
-A1c 10%
-Diabetes PLATE CLEANER managing the insulin
-Will need outpatient ophthalmology follow-up
CAD-S/p CABG
-Continue Statin and BB
Chronic HFpEF
-COntinue Bumex and BB
MARYLOU on CKD stage V -nephrology has recommended starting dialysis but patient wants to hold off as she anticipates her renal function will improve. She was on dialysis previously. Creatinine down to 4.3. Urine output slowly improving. Weight
slowly improving but still above her baseline.
-Nonoliguric at this time
-Hyperkalemia resolved.
-Check urine creatinine protein urine analysis
Acute colitis -loose stools possibly related to antibiotics. Stool C. difficile and norovirus negative. Add Imodium as needed.
Chronic transaminitis
-Stable
Chronic hearing loss -as per patient report. Recommend outpatient audiogram, ENT follow-up. Unclear if related to medications.
Full code
Dispo -possible discharge today if okay with ID, nephrology. Patient okay with discharge. Needs close outpatient follow-up.
Anticipated Discharge: Today
Subjective/Interval History
-
Date of Service: July 14, 2024
Patient seen and examined. Denies shortness of breath. No complaints. Enthusiastic that her urine output is picking up. Weight is coming down.
Objective Data
-
Labs:
Laboratory Results
07/14/24
06:49
Sodium 136
Potassium 4.1
Chloride 102
Carbon Dioxide 19 L
BUN 72 H
Creatinine 4.3 H*
Glucose 73
Calcium 8.4
Vital Signs:
Vital Signs
Temp Pulse Resp BP Pulse Ox
97.6 F 78 16 155/64 94
07/14/24 07:30 07/14/24 08:13 07/14/24 07:30 07/14/24 08:13 07/14/24 09:21
I&O
07/13/24 07/14/24 07/15/24
06:59 06:59 06:59
Intake Total 1010 / 1010 350 / 350
Output Total 795 / 795 1310 / 1310
Balance 215 / 215 -960 / -960
Review of Systems
-
History Source: Patient
All other systems: Reviewed and negative
--- NOTE | 2024-07-14 10:05 | PTCARENOTE ---
Pt refusing HD cath placement and initiation at this time. MD aware, MAR reflects refusal of HD.
--- NOTE | 2024-07-14 10:59 | W.PN.NEPH.PH ---
Today's Communication / Plan
-
see plan
Assessment/Plan
-
Impression:
MARYLOU/CKD 4 (previously dialysis dependent up until 8 weeks ago)
Open wound/diabetic foot infection of right lateral foot possible osteomyelitis status post angiogram with stent placement on 07/08/2024
History of right diabetic foot infection status post fifth toe amputation on 12/06 and revision fourth toe amputation on 12/13
Peripheral arterial disease status post diagnostic arteriogram, intravascular lithotripsy of the posterior tibial artery and proximal SFA, balloon angioplasty and nitroglycerin injection of posterior tibial artery on 12/21/23
Chronic transaminitis
Type 1 diabetes
ESRD on hemodialysis Thursday and Thursday (stopped two months prior)
Chronic HFpEF
chronic anemia
Moderate aortic stenosis/aortic regurgitation
Mild to moderate mitral stenosis
Paroxysmal SVT
Iron deficiency anemia
History of CVA
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
PLan:
MARYLOU: previously HD dependant, reportedly off 2months [employer]
UA bland and proteinuria 3gm/gm of cr likely from diabetic nephropathy-similar presentation in December too
cr improving to 4.3, non oliguric but unlikely will be sufficient enough to improve edema
she is almost anasarca state and I am not sure if she will be able to hold off dialysis in near future
I explained my concerns with pt and she reports understanding but she thinks that she wont need HD
at this point I dont have much to offer her
IN previous discussions we reviewed with pt that with out dialysis she is at high risk of mortality
cont bumex home dose
renal diet and FR
dose meds renally
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
difficult situation unfortunately treatment plan is limited with out pt consent
d/w nursing
-
-
Date of Service: July 14, 2024
CC / HPI / ROS
-
Chief Complaint:
MARYLOU, CKD
History of Present Illness:
cr down to 4.3 , k normal, bicarb 19
BP are stable
Remains on Zosyn renally dosed for foot wound
Review of Systems:
no cp or sob
no n/v
Weight down
Labs
-
Labs:
WBC 6.9 10^3/uL (4.8-10.8) 07/12/24 08:49
RBC 4.23 10^6/uL (4.20-5.40) 07/12/24 08:49
Hgb 11.2 g/dL (12.0-16.0) L 07/12/24 08:49
Hct 34.5 % (37.0-47.0) L 07/12/24 08:49
Plt Count 244 10^3/uL (130-400) 07/12/24 08:49
Sodium 136 mmol/L (135-145) 07/14/24 06:49
Potassium 4.1 mmol/L (3.5-5.1) 07/14/24 06:49
Chloride 102 mmol/L (98-107) 07/14/24 06:49
Carbon Dioxide 19 mmol/L (22-30) L 07/14/24 06:49
BUN 72 mg/dl (7-17) H 07/14/24 06:49
Creatinine 4.3 mg/dL (0.6-1.0) H* 07/14/24 06:49
eGFR 12.07 07/14/24 06:49
Glucose 73 mg/dl (70-99) 07/14/24 06:49
Calcium 8.4 mg/dl (8.4-10.2) 07/14/24 06:49
Albumin 2.9 g/dl (3.5-5.0) L 07/08/24 07:56
Physical Exam
-
Vital Signs:
Vital Signs
Temp Pulse Resp BP Pulse Ox
97.6 F 78 16 155/64 94
07/14/24 07:30 07/14/24 08:13 07/14/24 07:30 07/14/24 08:13 07/14/24 09:21
Cardiovascular:: Regular rate and rhythm
Respiratory:: Bilateral: CTA (decreased)
Lung Excursion:: Normal
Abdomen:: Nontender and Soft
Extremity Edema:: +3: Bilateral:
Whitmore Catheter: No
[2024-07-14 11:19] LABS: Glucose - Point of Care 73 mg/dl (70-99)
--- NOTE | 2024-07-14 11:25 | CM ---
Reviewed the chart notes. Patient refusing HD cath placement. Patient not ready to resume HD. CM continues to be available to patient/family and is monitoring medical plan for needs at discharge.
Plan: Discharge to home with resumption of [facility] services.
[2024-07-14 13:07] LABS: Glucose - Point of Care 99 mg/dl (70-99)
--- NOTE | 2024-07-14 13:16 | W.PN.ID1 ---
Date of Service
Date of Service: July 14, 2024
Today's Communication
Continue antibiotics. See below�
Assessment / Plan
Right foot osteomyelitis
- Recovered K. aerogenes, E. cloacae, E. faecalis, MSSA
Right foot SSTI with gangrene
- s/p debridement and bone resection form Rt 5th metatarsal (07/07/24)
Elevated ESR
CKD stage IV (Hx of prior HD, but now off)
IDDM (uncontrolled; HbA1c = 10.1 on 02/16/24, 10.0 on 07/05/24)
PAD
Functional immunosuppression
Diastolic CHF
Anemia
Hx CVA
Paroxysmal SVT
Hx Guillain-Song� with chronic LLE weakness
Recommendations:
Path has been finalized, and shows focal acute osteomyelitis
Plain film has been reviewed, and reveal residual bony fragments. This was discussed with Podiatry who does not feel that these pose any infectious risk.
Given uncontrolled diabetes, peripheral vascular disease and CKD, patient in an extremely high risk situation for limb loss, therefore, would continue with a prolonged course of oral antibiotics. I stressed to Shea the need for tight glucose
control.
At discharge, transition to
- amoxicillin 500 mg PO BID x 28days
- cephalexin 500 mg PO BID x 28 days
����������������������������������������������������������
Chief Complaint
-: Other (Right foot wound infection; right fifth metatarsal osteomyelitis)
Subjective / Review of Systems
Review of Systems: No Fever and No Chills
Vital Signs / Physical Exam
Vital Signs
Vital Signs
Temp Pulse Resp BP Pulse Ox
97.6 F 78 16 155/64 94
07/14/24 07:30 07/14/24 08:13 07/14/24 07:30 07/14/24 08:13 07/14/24 09:21
Physical Exam
Constitutional: No Acute Distress, Comfortable, Chronically Ill and Non-toxic
Eyes: Sclera Anicteric
Cardiovascular: S1/S2; Negative S3/S4
Pulmonary: Clear and Non Labored
Gastrointestinal: Soft and Non Distended
Skin: Warm and Dry; Negative Rash or Jaundice
Wound: Other (Right foot dressed in gerri. No strikethrough. 3+ LE edema)
Neurological: AO x 3
Psychological: Calm
Objective Data
Lab Data
Lab Results
07/12/24 08:49
07/14/24 06:49
ESR 62 mm/hour (0-20) H 07/04/24 12:20
Estimated Creat Clear 17 ml/min 07/14/24 06:49
Total Bilirubin 0.4 mg/dl (0.2-1.3) 07/08/24 07:56
AST 38 U/L (14-36) H 07/08/24 07:56
ALT 32 U/L (0-35) 07/08/24 07:56
Alkaline Phosphatase 516 U/L (38-126) H 07/08/24 07:56
C-Reactive Protein 10.30 mg/L (0.0-10.00) H 07/04/24 12:20
Most recent labs reviewed.
Micro Results:
07/07/24 15:25 Wound Culture - Final
Foot - Right Enterococcus faecalis
Streptococcus species
Viridans Streptococcus Group
Gram Stain - Final
07/07/24 15:25 Anaerobic Culture - Final
Foot - Right Anaerobic gram positive cocci
07/07/24 15:25 Tissue Culture - Final
Toe Enterococcus faecalis
S aureus-Methicillin Sensitive
Streptococcus species
Viridans Streptococcus Group
Gram Stain - Final
07/08/24 03:15 C. difficile GDH Antigen & Toxins - Final
Feces/Stool Negative for toxigenic C.difficile
- Final
Negative for Norovirus GI and GII.
07/04/24 17:23 MRSA Screen - Final
Nose Staph aureus MRSA
Wound/abscess/other Cult Final 02/17/2024
Few Klebsiella aerogenes
Few second Enterobacter cloacae
Moderate Enterococcus faecalis
Moderate S aureus-Methicillin Sensitive
Organism 1 Klebsiella aerogenes
Organism 2 Enterobacter cloacae
Organism 3 Enterococcus faecalis
Organism 4 S aureus-Methicillin Sensitive
KLEAER E.CLOACAE ENTFCL
M.I.C. RX M.I.C. RX M.I.C. RX
--------- --- --------- --- --------- ---
Amoxicillin/Potas. Clavulanate 16/8 R >16/8 R
Ampicillin >16 R >16 R <=2 S
Ampicillin/Sulbactam 8/4 R 8/4 R
Aztreonam <=4 S <=4 S
Cefazolin 8 R >16 R
Cefepime <=2 S <=2 S
Ceftazidime <=1 S <=1 S
Ceftriaxone <=1 S <=1 S
Clindamycin
Ertapenem <=0.5 S <=0.5 S
Ciprofloxacin <=0.25 S <=0.25 S <=1 S
Gentamicin <=2 S <=2 S
Gentamicin Synergy Screen <=500 S
Erythromycin
Levofloxacin
Oxacillin
Meropenem <=1 S <=1 S
Piperacillin/Tazobactam <=8 S <=8 S
Tetracycline <=4 S <=4 S
Tobramycin <=2 S <=2 S
Trimethoprim/Sulfamethoxazole <=2/38 S <=2/38 S
Vancomycin 2 S
MSSA
M.I.C. RX
--------- ---
Amoxicillin/Potas. Clavulanate <=4/2 S
Ampicillin >8 R
Ampicillin/Sulbactam
Aztreonam
Cefazolin
Cefepime
Ceftazidime
Ceftriaxone
Clindamycin <=0.5 S
Ertapenem
Ciprofloxacin
Gentamicin <=4 S
Gentamicin Synergy Screen
Erythromycin <=0.5 S
Levofloxacin <=1 S
Oxacillin 0.5 S
Meropenem
Piperacillin/Tazobactam
Tetracycline <=4 S
Tobramycin
Trimethoprim/Sulfamethoxazole <=0.5/9.5 S
Vancomycin 1 S
Imaging:
07/12/2024 X-ray right foot: Since study dated 07/04/2024, there has been further resection of the right fifth metatarsal bone there is remaining approximately 2.7 cm of proximal fifth metatarsal shaft. Adjacent to the distal aspect of the remaining
fifth metatarsal bone there are multiple small bony fragments, probably bony fragments from previous resection. No gross evidence for bony destruction involving the fifth metatarsal bone. Please see full dictation for additional detail. Film
personally viewed.
07/05/2024 MRI right lower extremity: Postoperative changes of fourth and fifth partial ray amputation. There are findings of infection and soft tissue defect along the residual lateral soft tissues of the foot. There is associated underlying acute
osteomyelitis of the shaft of the residual fifth metatarsal.
07/04/2024 X-ray right foot: Cortical irregularity with bone loss at the level of the osteotomy site the right fifth metatarsal in the interval since most recent prior radiograph, at least suspicious for osteomyelitis.
Pathology:
07/07/2024 Bone, right fifth metatarsal, resection: Focal acute osteomyelitis in a background of reactive and remodeling changes. Clinical correlation and correlation with microbiologic studies recommended.
Care Review
Plan reviewed with: Physician (Hospitalist; Nephrology)
--- NOTE | 2024-07-14 13:41 | W.DS.TRANS ---
DC Summary - Regulatory Affairs Intern
-
Discharge Instructions:
Sleep Apnea Risk Low
Discharge Diagnosis/Procedures Right foot diabetic infection, acute kidney
failure with chronic kidney disease stage V,
peripheral arterial disease
Diet Diabetic, Carb Controlled,Other diet
Additional Diets 2 Gram potassium diet
Activity As tolerated,Other activity
Additional Activity Use surgical shoe
Driving Restrictions As prior to admission
Bathing Restrictions None
Other Services VN
Instructions:
Stand-Alone Forms:
Changes to Home Medications: No
Discharge Medications:
DC Medications w/original date entered in [employer]
aspirin 81 mg tablet,delayed release 81 mg PO DAILY Blood Clot Prevention/Tx #30 tabs 05/04/23
Lactobac no.2-Bifidobac no.1-S. thermo 112.5 billion cell capsule (Visbiome) 1 cap PO DAILY probiotic 02/15/24
ergocalciferol (vitamin D2) 1,250 mcg (50,000 unit) capsule 1,250 mcg PO HANSON Supplement 02/15/24
clopidogrel 75 mg tablet 75 mg PO DAILY Blood clot prevention/tx #30 tabs 02/20/24
atorvastatin 40 mg tablet 80 mg PO QPM High Cholesterol 07/04/24
bumetanide 2 mg tablet 2 mg PO DAILY Fluid Retention/Swelling 07/04/24
carvedilol 3.125 mg tablet (Coreg) 3.125 mg PO BID Blood Pressure 07/04/24
amoxicillin 500 mg tablet 500 mg PO BID #56 tabs 07/14/24
cephalexin 500 mg tablet 500 mg PO BID #56 tabs 07/14/24
Home Medication Changes
Pending Results: No
--- NOTE | 2024-07-14 14:10 | VNURNOTE ---
Liaison met w/pt at bedside. She is agreeable to resume [facility] services. Would like the same nurse Ethel back. Reviewed w/pt that [facility] will contact her prior to visits. She verbalized agreement.
[2024-07-14 15:29] VITALS: BP 156/78
== END 2024-07-14 15:49 | disposition home health service (06) | DRG 253 ==
LOC: 2 NORTH 14:14
PROVIDERS: Hospitalist; Physician Assistant Medical; ADMITTING PHYSICIAN Hospitalist; ATTENDING PHYSICIAN Hospitalist; CONSULT PHYSICIAN Podiatrist Foot & Ankle Surgery; CONSULT PHYSICIAN Surgery Vascular Surgery; EMERGENCY PHYSICIAN Emergency Medicine; FAMILY PHYSICIAN Internal Medicine; OTHER PHYSICIAN Internal Medicine Infectious Disease; OTHER PHYSICIAN Psychiatry & Neurology Psychiatry; OTHER PHYSICIAN Specialist
PROC: 0QBN0ZZ Excision of Right Metatarsal, Open Approach (ICD-10-PCS; 2024-07-07)
PROC: 047 Lower Arteries, Dilation (ICD-10-PCS; 2024-07-08)
DX: E10.52 Type 1 diabetes mellitus with diabetic peripheral angiopathy with gangrene (principal); G61.0 Guillain-Barre syndrome; I13.2 Hypertensive heart and chronic kidney disease with heart failure and with stage 5 chronic kidney disease, or end stage renal disease; M86.171 Other acute osteomyelitis, right ankle and foot; I50.32 Chronic diastolic (congestive) heart failure; L97.516 Non-pressure chronic ulcer of other part of right foot with bone involvement without evidence of necrosis; I47.19 Other supraventricular tachycardia; I70.261 Atherosclerosis of native arteries of extremities with gangrene, right leg; N17.9 Acute kidney failure, unspecified; N18.5 Chronic kidney disease, stage 5; E10.69 Type 1 diabetes mellitus with other specified complication; E10.621 Type 1 diabetes mellitus with foot ulcer; E10.22 Type 1 diabetes mellitus with diabetic chronic kidney disease; I25.10 Atherosclerotic heart disease of native coronary artery without angina pectoris; I35.2 Nonrheumatic aortic (valve) stenosis with insufficiency; D50.9 Iron deficiency anemia, unspecified; T87.81 Dehiscence of amputation stump; B96.1 Klebsiella pneumoniae [K. pneumoniae] as the cause of diseases classified elsewhere; B96.89 Other specified bacterial agents as the cause of diseases classified elsewhere; B95.2 Enterococcus as the cause of diseases classified elsewhere; B95.61 Methicillin susceptible Staphylococcus aureus infection as the cause of diseases classified elsewhere; E78.00 Pure hypercholesterolemia, unspecified; F43.21 Adjustment disorder with depressed mood; Y83.5 Amputation of limb(s) as the cause of abnormal reaction of the patient, or of later complication, without mention of misadventure at the time of the procedure; D71 Functional disorders of polymorphonuclear neutrophils; Z95.1 Presence of aortocoronary bypass graft; Z91.040 Latex allergy status; Z86.73 Personal history of transient ischemic attack (TIA), and cerebral infarction without residual deficits; Z89.421 Acquired absence of other right toe(s); Z83.3 Family history of diabetes mellitus; Z82.49 Family history of ischemic heart disease and other diseases of the circulatory system; Z79.899 Other long term (current) drug therapy; Z79.82 Long term (current) use of aspirin; Z79.02 Long term (current) use of antithrombotics/antiplatelets
CPT/HCPCS: 88304; 88311; 37228; 37230; 73620; 73630; 73720; 75625; 75716; 76770; 80048; 80053; 80202; 81003; 81015; 82570; 82962; 83036; 84156; 85025; 85027; 85652; 86140; 87070; 87075; 87077; 87147; 87176; 87186; 87205; 87324; 87449; 87798; 96365; 97116; 97162; 97530; 99285; A9575; C1725; C1769; C1874; C1894; P9047; Q9967

== ENCOUNTER 2024-08-10 15:49 | Inpatient (IN) | payer OTHER, SELFPAY ==
[2024-08-10] VITALS (12 sets, daily range): BP systolic 70–171; BP diastolic 60–95; BMI 42.5; BMI 41.3
--- NOTE | 2024-08-10 10:23 | ED.GENMED ---
History of Present Illness
General
Chief Complaint: Breathing Problem
Source: patient and records
Time Seen by Provider: 08/10/24 10:12
History of Present Illness
History of Present Illness:
48-year-old female with extensive chronic past medical history including type 1 diabetes, peripheral arterial disease, CAD, CHF, chronic kidney disease stage V, recent admission and treatment for right foot osteomyelitis status post bone resection
of the fifth metatarsal on July 07 (remains on oral antibiotics) presenting back to the emergency department today stating 'I am fluid overloaded' and has been experiencing increased shortness of breath and exertional dyspnea. Patient states that
her left leg is more edematous than the right but does note that she had a stent placed in the right lower extremity in order to help with blood flow and healing of her right foot osteomyelitis/gangrene. Patient does endorse a slight nonproductive
cough. Denies any fevers or upper respiratory symptoms otherwise. She is also denying any pleurisy chest pain, hemoptysis, abdominal pain or any other concerns.
Past History
Past History
ED Past Medical History: CAD, CHF, CVA, HTN, Hypercholesterolemia, IDDM, Renal failure and Other (Guillian-barre, blind right eye)
ED Past Surgical History: Cardiac (CABG in 1981), Orthopedic and Other
Patient has exhibited threatening behavior?: No
Social History
Tobacco: Non-smoker
Alcohol: Occasional
Drug: None
Personal: Other
Living: with family
Employment: Other
Family History
Family History: Other
Review of Systems
Review of Systems
All Other Systems: ROS reviewed and negative except as documented in HPI and ROS
Phy Exam
Physical Exam
Physical Exam:
GENERAL: Alert , appears older than stated age, chronically ill-appearing
HEAD: Normocephalic atraumatic
EYE: Clear conjunctiva
NECK: Supple
ENT: mmm.
CARDIAC: Regular rate and rhythm, systolic murmur.
LUNGS: Somewhat diminished throughout, more pronounced at bases bilateral
ABDOMEN: Soft, without focal tenderness, no r/g, no cvat
NEUROLOGICAL: Alert and oriented
SKIN: Warm and dry, skin intact.
MUSCULOSKELETAL: N significant lower extremity edema, left worse than right up into the mid thigh on the left. Right lower extremity with less edema but patient does have large dressing and orthopedic shoe over the right foot. Cap refill is
approximately 2 seconds on both right and left lower extremity. Sensory is reportedly intact.
PSYCH: Flat affect
Scores
Heart Failure Risk
Heart Failure Risk Score: Not Applicable
Heart Score for Chest Pain Patients
STEMI patient?: Not applicable
Withdrawal Assessment of Alcohol
Withdrawal Assessment Completed?: Not applicable
Course
Orders/Labs/Results
Orders:
Orders
08/10/24 10:13
EKG [Electrocardiogram (*1)] Urgent
Reason for Study: Shortness of Breath
EKG- Treatment ONCE
08/10/24 10:18
US Periph Venous LOWER Ext LT Urgent
Comment:
Reason For Exam: edema
08/10/24 10:24
COVID-19 Antigen Urgent
Source: Nasal Swab
Complete Blood Count/With Diff Urgent
PTT Urgent
Prothrombin Time Urgent
Influenza A+B Rapid Molecular Urgent
ROGER Source: Nasal Swab
Specimen Description:
08/10/24 11:53
Comprehensive Metabolic Panel Urgent
NT-proBNP Urgent
Troponin I Urgent
Abnormal Lab Results
08/10/24 08/10/24
10:24 11:53
Hgb 11.5 L g/dL
(12.0-16.0)
Hct 36.2 L %
(37.0-47.0)
MCH 26.6 L pg
(27.0-31.0)
MCHC 31.8 L g/dL
(33.0-37.0)
RDW 19.3 H %
(11.5-14.5)
Abs Immat Gran (auto) 0.1 H 10^3/uL
(0-0.05)
Absolute Monos (auto) 0.7 H 10^3/uL
(0.1-0.6)
Immature Gran % 0.9 H %
(0-0.5)
Lymphocytes % 17.5 L %
(20.5-51.1)
Monocytes % 9.4 H %
(1.7-9.3)
PT 15.1 H Sec
(11.4-14.6)
Potassium 5.6 H mmol/L
(3.5-5.1)
Chloride 110 H mmol/L
(98-107)
Carbon Dioxide 14 L* mmol/L
(22-30)
BUN 72 H mg/dl
(7-17)
Creatinine 3.0 H mg/dL
(0.6-1.0)
Glucose 169 H mg/dl
(70-99)
Alkaline Phosphatase 681 H U/L
(38-126)
Albumin 3.3 L g/dl
(3.5-5.0)
08/10/24 10:24
08/10/24 11:53
Vital Signs
Initial and Last Documented VS:
Initial Vital Signs
Temp Pulse Resp BP Pulse Ox
97.7 F 76 14 119/95 96
08/10/24 10:14 08/10/24 10:14 08/10/24 10:14 08/10/24 10:14 08/10/24 10:14
Last Documented Vital Signs
Temp Pulse Resp BP Pulse Ox
97.7 F 77 17 119/66 94
08/10/24 10:14 08/10/24 12:45 08/10/24 11:15 08/10/24 13:00 08/10/24 12:45
MDM/Problems Addressed
Differential Diagnosis Includes:
DVT/PE considered given patient's relative immobility combined with chronic medical conditions and recent hospitalization, CHF, acute on chronic renal dysfunction, cardiorenal syndrome, electrolyte derangement
MDM/Problems Addressed:
48-year-old female presenting to the emergency department for evaluation of increased edema which she reports is to her entire body over the last few days, acutely more shortness of breath and cough prompting her to come to the ER today. No fevers
or infectious symptoms. Continues on antibiotics for her recent diagnosis of right lower extremity osteomyelitis. I reviewed patient's discharge summary from middle of July which explicitly states that patient was recommended by nephrology to
initiate dialysis due to her renal dysfunction but patient was adamantly against this and refused dialysis. I suspect a lot of patient's presenting symptoms today are going to be likely related to renal dysfunction. Will check ultrasound to rule
out DVT. Labs ordered. Anticipate admission
Chronic conditions affecting care: DM, CAD, Cardiomyopathy and Kidney disease
Acute Exacerbation and/or Progression of Chronic Illness: Kidney disease
*Radiology
Radiology exam reviewed: radiology read reviewed
*Pulse Oximetry
Patient hypoxic: no
*EKG
Interpreted by ED Provider?: Yes
Comparison EKG: no changes
Heart Rate: 78
Rate: normal
Rhythm: sinus
[place]: right axis deviation
Ischemia: no ischemia
*National Service Officer Interpretation
Rate: normal
Rhythm: sinus
*Critical Care Note
Total Time (30-74mins, 75-104mins- exclusive of procedures): Not Applicable
Data Reviewed
Review of Other/Old Records Reveals: Labs, Records and Discharge Summary
Source: patient and records
Patient Management
Discussion with other providers: Hospitalist and Rotary Shear Operator
Escalation/DeEscalation of care consider admission/obs:
Due to patient's chronic medical conditions combined with her presenting symptoms today will admit for further evaluation and treatment. I notified both nephrology and hospitalist team. Nephrology asking if patient is amenable to hemodialysis at
this time. While patient is not at 100% against initiation of dialysis she stated she would like to speak with both nephrology and cardiology about potential other options for treatment. I notified both the hospitalist team and nephrology about
this. Cardiology team can be consulted as needed. Patient hyperkalemia noted which is likely secondary to her renal dysfunction however there is no ischemic changes on EKG. Will defer medications to inpatient team for treatment of this if they so
choose.
ED Attending Note
-
Portions of this chart may have been created with voice recognition software.� Occasional wrong word or��sound alike� substitutions may have occurred due to the inherent limitations of voice recognition software.
Discharge Plan
Departure
Patient Disposition: Admit
Date of Disposition: 08/10/24
Time of Disposition: 13:08
Presentation/result/management discussed w/ accepting MD/DO: Hospitalist
Discharge Problem:
Renal failure, Edema
Prescriptions:
No Action
aspirin 81 mg Tablet,Delayed Release (Dr/Ec)
81 mg PO DAILY Qty: 30 0RF
ergocalciferol (vitamin D2) 1,250 mcg (50,000 unit) capsule
1,250 mcg PO HANSON
Visbiome 112.5 billion cell Capsule
1 cap PO DAILY
clopidogrel 75 mg Tablet
75 mg PO DAILY Qty: 30 7RF
atorvastatin 40 mg tablet
80 mg PO QPM
bumetanide 2 mg Tablet
2 mg PO DAILY
carvedilol [Coreg] 3.125 mg Tablet
3.125 mg PO BID
amoxicillin 500 mg tablet
500 mg PO BID Qty: 56 0RF
cephalexin 500 mg tablet
500 mg PO BID Qty: 56 0RF
acetaminophen [Tylenol] 325 mg Tablet
650 mg PO Q6HPRN PRN (Reason: mild pain)
loperamide 2 mg Tablet
2 mg PO DAILYPRN PRN (Reason: diarrhea)
Santyl 250 unit/gram Ointment
1 applic TOPICAL DAILY
insulin aspart U-100 [Novolog FlexPen U-100 Insulin] 100 unit/mL (3 mL) Insulin Pen
1 sliding scale dose SC TIDPRN PRN (Reason: high blood sugar)
Referrals:
UNKNOWN - PT DOES,NOT KNOW [Family Provider] -
Interventions
Interventions:
*General Assessment Last Done: 08/10/24 10:20
ED- Fall Risk Assessment Last Done: 08/10/24 10:21
*ED COVID-19 Vaccine History Last Done: 08/10/24 10:14
ED- Cardiac Assessment Last Done: 08/10/24 10:28
ED- Pulmonary Assessment Last Done: 08/10/24 10:28
Discharge Date and Time
Print Language: CAMBODIAN
[2024-08-10 10:34] LABS: % Basophils 0.9 % (0-2); % Immature Granulocytes 0.9 % (0-0.5); % Lymphocytes 17.5 % (20.5-51.1); % Monocytes 9.4 % (1.7-9.3); % Neutrophils 69.3 % (42.2-75.2); Absolute Basophils 0.1 10^3/uL (0-0.2); Absolute Eosinophils 0.2 10^3/uL (0-0.7); Absolute Immature Granulocytes 0.1 10^3/uL (0-0.05); Absolute Lymphocytes 1.3 10^3/uL (1.2-3.4); Absolute Monocytes 0.7 10^3/uL (0.1-0.6); Absolute Neutrophils 5.2 10^3/uL (1.4-6.5); Hematocrit 36.2 % (37.0-47.0); Hemoglobin 11.5 g/dL (12.0-16.0); Mean Corp Hgb Conc. 31.8 g/dL (33.0-37.0); Mean Corpuscular Hgb 26.6 pg (27.0-31.0); Mean Corpuscular Volume 83.8 fL (81.0-99.0); Mean Platelet Volume 9.6 fL (7.4-10.4); Nucleated Red Blood Cells % 0.5 %; Platelet Count 348 10^3/uL (130-400); Red Blood Cell Count 4.32 10^6/uL (4.20-5.40); Red Cell Dist. Width 19.3 % (11.5-14.5); White Blood Cell Count 7.6 10^3/uL (4.8-10.8)
[2024-08-10 10:44] LABS: INR 1.14; PT 15.1 Sec (11.4-14.6)
[2024-08-10 10:45] LABS: APTT 29.4 Sec (23.4-35.0)
[2024-08-10 11:10] LABS: COVID-19 Antigen Negative (Negative)
[2024-08-10 13:01] LABS: ALT (SGPT) 32 U/L (0-35); AST (SGOT) 31 U/L (14-36); Albumin 3.3 g/dl (3.5-5.0); Alkaline Phosphatase 681 U/L (38-126); Blood Urea Nitrogen 72 mg/dl (7-17); Calcium 9.1 mg/dl (8.4-10.2); Carbon Dioxide 14 mmol/L (22-30); Chloride 110 mmol/L (98-107); Estimated Creatinine Clearance 27 ml/min; Glucose 169 mg/dl (70-99); Potassium 5.6 mmol/L (3.5-5.1); Sodium 137 mmol/L (135-145); Total Bilirubin 0.9 mg/dl (0.2-1.3); Total Protein 7.7 g/dl (6.3-8.2); eGFR 18.59
[2024-08-10 13:05] LABS: NT-proBNP 13400 pg/ml
--- NOTE | 2024-08-10 14:35 | W.CON.NEPH ---
Consultation
-
Date/Time Consultation Requested: 08/10/24 1330
Date/Time Consultation Performed: 08/10/24 1430
Requesting Provider: Rodolfo Dougherty
Performing Provider: Juana Talbot
Reason for Consultation: Marylou with CKD, hyperkalemia, met acidosis
Medical History
-
Chief Complaint: SOB, edema
History of Present Illness:
48-year-old female past medical history of right diabetic foot infection status post fifth toe amputation, peripheral arterial disease, ESRD on hemodialysis Thursday and Thursday at [facility] which was stopped 3 month ago, diastolic CHF,
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
pulmonary HTN, who was recently Was at for lower extremity wound for which she had a debridement and also underwent angioplasty, stent placement of right posterior tibial artery. Stent angioplasty of another branches. During this time she had
MARYLOU and was recommended to start on dialysis however patient refused, creatinine peaked at 5.4, at discharge was 4.3. She has not seen her discovery guide since d/c. Now she presents with shortness of breath, increasing edema. Laboratory data noted
creatinine of 3, BUN 72, bicarbonate of 14 non-gap, potassium 5.6. She also reports decreasing UOP lately. Offers no n/v. NO fever, chills.
Past Medical History
right diabetic foot infection status post fifth toe amputation, peripheral arterial disease, ESRD on hemodialysis Thursday and Thursday (stopped 2 months earlier), diastolic CHF, presumed type I diabetes, iron deficiency anemia, CVA, paroxysmal SVT,
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
Past Surgical History: Tonsilectomy (Eye surgery Open heart surgery as a child) and Other (right foot amputation of Toes)
Social History
Tobacco: Non-Smoker
Alcohol: Former
Drug: None
Personal: Single
Employment: Disabled
Family History
MOther side family with HTN, DM and ESRD On dialysis
Allergies / Home Medications
Allergy/AdvReac Type Severity Reaction Status Date / Time
latex Allergy Hives Verified 07/04/24 11:33
�Medication �Instructions �Recorded �Confirmed �Type
aspirin 81 mg tablet,delayed 81 mg PO DAILY Blood Clot 05/04/23 08/10/24 Rx
release Prevention/Tx #30 tabs
Lactobac no.2-Bifidobac no.1-S. 1 cap PO DAILY probiotic 02/15/24 08/10/24 History
thermo 112.5 billion cell capsule
(Visbiome)
ergocalciferol (vitamin D2) 1,250 1,250 mcg PO HANSON Supplement 02/15/24 08/10/24 History
mcg (50,000 unit) capsule
clopidogrel 75 mg tablet 75 mg PO DAILY Blood clot 02/20/24 08/10/24 Rx
prevention/tx #30 tabs
atorvastatin 40 mg tablet 80 mg PO QPM High Cholesterol 07/04/24 08/10/24 History
bumetanide 2 mg tablet 2 mg PO DAILY Fluid 07/04/24 08/10/24 History
Retention/Swelling
carvedilol 3.125 mg tablet (Coreg) 3.125 mg PO BID Blood Pressure 07/04/24 08/10/24 History
amoxicillin 500 mg tablet 500 mg PO BID #56 tabs 07/14/24 08/10/24 Rx
cephalexin 500 mg tablet 500 mg PO BID #56 tabs 07/14/24 08/10/24 Rx
acetaminophen 325 mg tablet 650 mg PO Q6HPRN PRN mild pain 08/10/24 08/10/24 History
(Tylenol)
collagenase clostridium histo. 250 1 applic topical DAILY RIGHT FOOT 08/10/24 08/10/24 History
unit/gram topical ointment (Santyl) WOUND
insulin aspart U-100 100 unit/mL 1 sliding scale dose SC TIDPRN PRN 08/10/24 08/10/24 History
(3 mL) subcutaneous pen (Novolog high blood sugar
FlexPen U-100 Insulin aspart)
loperamide 2 mg tablet 2 mg PO DAILYPRN PRN diarrhea 08/10/24 08/10/24 History
Review of Systems
-
all complete 12 point ROS have been inquired and found negative other than stated in HPI
Physical Exam
Vital Signs
Vital Signs
Temp Pulse Resp BP Pulse Ox
97.7 F 77 17 119/66 94
08/10/24 10:14 08/10/24 12:45 08/10/24 11:15 08/10/24 13:00 08/10/24 12:45
Lab Results
WBC 7.6 10^3/uL (4.8-10.8) 08/10/24 10:24
RBC 4.32 10^6/uL (4.20-5.40) 08/10/24 10:24
Hgb 11.5 g/dL (12.0-16.0) L 08/10/24 10:24
Hct 36.2 % (37.0-47.0) L 08/10/24 10:24
Plt Count 348 10^3/uL (130-400) 08/10/24 10:24
Sodium 137 mmol/L (135-145) 08/10/24 11:53
Potassium 5.6 mmol/L (3.5-5.1) H 08/10/24 11:53
Chloride 110 mmol/L (98-107) H 08/10/24 11:53
Carbon Dioxide 14 mmol/L (22-30) L* 08/10/24 11:53
BUN 72 mg/dl (7-17) H 08/10/24 11:53
Creatinine 3.0 mg/dL (0.6-1.0) H 08/10/24 11:53
eGFR 18.59 08/10/24 11:53
Glucose 169 mg/dl (70-99) H 08/10/24 11:53
Calcium 9.1 mg/dl (8.4-10.2) 08/10/24 11:53
Hqp-D-Nepurkgumwi Pept 64442 pg/ml 08/10/24 11:53
Albumin 3.3 g/dl (3.5-5.0) L 08/10/24 11:53
Physical Exam
General: Awake, Alert, Oriented, AOx3 and No Distress
HEENT: Anicteric, Conjunctivae Clear, Neck Supple and Trachea Midline
Respiratory: Normal Excursion, Nonlabored Respirations and Other (decreased BS)
Cardiac: S1/S2 and Regular Rate/Rhythm
Breast: Deferred by me
Abdomen: Soft and Other (distended, edema)
Musculoskeletal: Edema (4+)
Skin: No Rash
Neuro: Nonfocal/Grossly Intact
Psych: Appropriate
Data Reviewed
-
Labs: Labs Reviewed by me and Discussed with Patient
Assessment/Plan
-
Impression:
MARYLOU/CKD 4 (previously dialysis dependent up until 3m ago)
Hyperkalemia
Non gap met acidosis
recent diabetic foot infection of right lateral foot possible osteomyelitis status post angiogram with stent placement on 07/08/2024
History of right diabetic foot infection status post fifth toe amputation on 12/06 and revision fourth toe amputation on 12/13
Peripheral arterial disease status post diagnostic arteriogram, intravascular lithotripsy of the posterior tibial artery and proximal SFA, balloon angioplasty and nitroglycerin injection of posterior tibial artery on 12/21/23
Chronic transaminitis
Type 1 diabetes
ESRD on hemodialysis Thursday and Thursday (stopped two months prior)
Chronic HFpEF
chronic anemia
Moderate aortic stenosis/aortic regurgitation
Mild to moderate mitral stenosis
Paroxysmal SVT
Iron deficiency anemia
History of CVA
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
PLan:
MARYLOU: though cr is better than last admit, suspect this is all dilutional with sig wt gain and edema
she likely at ESRD and should start HD , finally she is agreeable to it
plan tunneled catheter placement -IR consulted
will give lasix and dose of LOkelma today
HD tomorrow
need to find HD unit placement
renal diet and FR
dose meds renally
d/w primary
d/w pt
--- NOTE | 2024-08-10 14:46 | HPS.HSE ---
Family Physician
-
Family Physician: NOT KNOW UNKNOWN - PT DOES
Chief Complaint
-
Volume overload
History of Present Illness
48 y/o F type 1 diabetes, peripheral arterial disease, CAD, CHF, chronic kidney disease stage V, recent admission and treatment for right foot osteomyelitis status post bone resection of the fifth metatarsal on July 07 presents to ER with SOB and
volume overload. She reports progressive edema in her legs and abdomen since discharge early July for OM admission. Reports chest pressure from edema. No fever/chills. No GI complaints. in
in ER, found to have volume overload, acidosis, and hyperkalemia.
Patient after extensive discussions is agreeing to HD re-initiation (previously on HD and stopped roughly 6 months ago)
Medical History
Past Medical History
Past Medical History: Reports Other (type 1 diabetes, peripheral arterial disease, CAD, CHF, chronic kidney disease stage V)
Past Surgical History: Reports Cardiac and Other (gastric sleeve, R toe amputation)
Social History
Unable to obtain full social history at this time due to: Dementia
Tobacco: Non-smoker
Alcohol: None
Drug: None
Living: With Family
Family History
Family History: Not pertinent
Allergies / Home Medications
Allergies reflects when Allergies were last updated in [employer] App.
Home Medications with original date entered in [employer] App
Allergy/Medication List:
Allergies
Allergy/AdvReac Type Severity Reaction Status Date / Time
latex Allergy Hives Verified 07/04/24 11:33
Home Medications
aspirin 81 mg tablet,delayed release 81 mg PO DAILY Blood Clot Prevention/Tx #30 tabs 05/04/23
Lactobac no.2-Bifidobac no.1-S. thermo 112.5 billion cell capsule (Visbiome) 1 cap PO DAILY probiotic 02/15/24
ergocalciferol (vitamin D2) 1,250 mcg (50,000 unit) capsule 1,250 mcg PO HANSON Supplement 02/15/24
clopidogrel 75 mg tablet 75 mg PO DAILY Blood clot prevention/tx #30 tabs 02/20/24
atorvastatin 40 mg tablet 80 mg PO QPM High Cholesterol 07/04/24
bumetanide 2 mg tablet 2 mg PO DAILY Fluid Retention/Swelling 07/04/24
carvedilol 3.125 mg tablet (Coreg) 3.125 mg PO BID Blood Pressure 07/04/24
amoxicillin 500 mg tablet 500 mg PO BID #56 tabs 07/14/24
cephalexin 500 mg tablet 500 mg PO BID #56 tabs 07/14/24
acetaminophen 325 mg tablet (Tylenol) 650 mg PO Q6HPRN PRN mild pain 08/10/24
collagenase clostridium histo. 250 unit/gram topical ointment (Santyl) 1 applic topical DAILY RIGHT FOOT WOUND 08/10/24
insulin aspart U-100 100 unit/mL (3 mL) subcutaneous pen (Novolog FlexPen U-100 Insulin aspart) 1 sliding scale dose SC TIDPRN PRN high blood sugar 08/10/24
loperamide 2 mg tablet 2 mg PO DAILYPRN PRN diarrhea 08/10/24
Review of Systems
-
A 12 point ROS was completed and negative except as noted: Yes
Physical Exam
Vital Signs
Vital Signs
Temp Pulse Resp BP Pulse Ox
97.7 F 77 17 119/66 94
08/10/24 10:14 08/10/24 12:45 08/10/24 11:15 08/10/24 13:00 08/10/24 12:45
Physical Exam
General: Appears Chronically Ill
HEENT: NormoCephalic and Anicteric
Respiratory: Crackles
Cardiac: S1/S2 and Regular Rhythm
GI: Soft and Non Tender
Hematologic/Lymphatic: No Lymphadenopathy
Psych: Calm
Laboratory Results
-
08/10/24 10:24
08/10/24 11:53
Laboratory Results
PT 15.1 Sec (11.4-14.6) H 02/05/25 10:24
INR 1.14 08/10/24 10:24
APTT 29.4 Sec (23.4-35.0) 08/10/24 10:24
Total Bilirubin 0.9 mg/dl (0.2-1.3) 08/10/24 11:53
AST 31 U/L (14-36) 08/10/24 11:53
ALT 32 U/L (0-35) 08/10/24 11:53
Alkaline Phosphatase 681 U/L (38-126) H 08/10/24 11:53
Troponin I 0.020 ng/ml 08/10/24 11:53
Data Reviewed
-
Diagnostic Radiology: Report Reviewed by me
Lab Data: Labs Reviewed by me
Impression/Plan
-
Assessment:
CKD stage 5 with acute metabolic acidosis and hyperkalemia, generalized anasarca
- prior hx of HD; now likely needing HD again; patient begrudgingly agreeable. IRAD consult.
- Nephrology consulted
- IV Lasix x 1 dose now for hypoxia
Acute hypoxic respiratory insufficiency due to Anasarca
- monitor O2 needs
Right diabetic foot infection with acute osteomyelitis (shaft of the residual fifth metatarsal)
- s/p debridement and bone culture that admission
- continue PO Amoxil/Kelfex as prior - end date is 08/11
- wound care
PAD
- S/p angioplasty and stent to the right distal posterior tibial artery. Balloon angio to the right plantar artery, pedal arch, dorsal pedis arteries 07/08/2024
- Continue aspirin and Plavix
- Continue statin
Type 1 diabetes
- Continue long-acting insulin and sliding scale
- Carb controlled diet
- Accu-Cheks
- A1c 10% recently
- Diabetes MANAGER PSYCHIATRY consulted
CAD-S/p CABG
- continue Statin and BB
Chronic HFpEF
- Continue BB. Volume management with HD.
Chronic hearing loss- Recommend outpatient audiogram, ENT follow-up. Unclear if related to medications.
DVT ppx: SC Heparin
Code: Full
[2024-08-10] MEDS: LASIX 80 MG IV (18:22)
[2024-08-10] MEDS: AMOXIL 500 MG PO (21:10)
[2024-08-10] MEDS: LIPITOR 80 MG PO (21:10)
[2024-08-10] MEDS: COREG 3.125 MG PO (21:10)
[2024-08-10] MEDS: KEFLEX 500 MG PO (21:10)
[2024-08-10] MEDS: HEPARIN 5000 UNITS SC (21:11)
[2024-08-10] MEDS: TYLENOL 650 MG PO (21:21)
[2024-08-10 21:31] LABS: Glucose - Point of Care 155 mg/dl (70-99)
--- NOTE | 2024-08-10 23:47 | PTCARENOTE ---
Patient arrived to unit from ED via stretcher. Patient pulled over from stretcher to bed in room 328 on . Patient AAOx3, able to make needs known, agitated with care and admission questions. Skin assessed, diabetic foot wound noted to R
foot-WOC consulted. Patient c/o pain to neck. PRN tylenol ordered. Patient requested something 'stronger.' This RN asked patient if she takes anything for pain at home or what has worked in the past. Patient replied 'anything stronger than tylenol,
I don't care.' NILDA Livingston notified, new order rec'd for x1 dilaudid. Informed patient that dilaudid was ordered. Patient stated 'I can't take that, I got a bad reaction in the past. What's your problem? Just give me the tylenol.' Tried
asking patient about her reaction in the past to assess for potential allergy. Patient stopped answering this RN's questions, just staring at the TV. Tylenol administered. Patient also requesting immodium for 'diarrhea from the antibiotics.' Tried
to educate patient that a stool sample would likely be needed prior to rule out C.diff. Patient angry and stated 'they tested me for it months ago and I didn't have it.' NILDA Livingston notified. No new orders at this time. Oriented to unit. Call
ambriz within reach. Plan of care ongoing.
[2024-08-11 03:03] VITALS: BP 161/72
[2024-08-11 06:00] VITALS: BMI 41.2
--- NOTE | 2024-08-11 07:27 | PN.DE.MGMTRT ---
Insulin Management
- -
08/11/2024 Diabetes Management Consult
Patient admitted 08/10 c/o swelling in L leg and difficulty breathing - volume overload. PMH PAD, CAD, HTN, CKD V, CHF, diabetes, CVA, s/p R 4th and 5th toe amputation, Guillain barre syndrome. Patient known to me from previous admissions. Prior
to admission was taking lantus and novolog 'only if she needed it'. A1C from 07/05/24 10%, cr 3, eGFR 18.59.
Patient is awake alert and oriented able to discuss diabetes care, currently receiving dialysis
Glucose stable 08/10 155 to 169. Fasting glucose 130. Will start HS lantus 3 units and AC novolog 2 units with low corrective insulin; patient often refuses.
Patient has a glucose monitor with supplies, states she might need additional test strips.
Will follow.
Diabetes History
- -
Type of Diabetes: 2 requiring insulin
Pre-Admission Diabetes Regimen
08/10/24 08/10/24 08/10/24
10:24 11:08 11:53
Creatinine Cancelled Cancelled 3.0 H
Insulin Pump Settings
IP Diabetes Regimen
08/10/24 08/10/24 08/10/24
10:24 11:08 11:53
Glucose Cancelled Cancelled 169 H
POC Glucose
08/10/24
21:29
Glucose
POC Glucose 155 H
Patient Education
[2024-08-11 07:28] VITALS: BP 170/70
[2024-08-11 07:43] LABS: Glucose - Point of Care 130 mg/dl (70-99)
[2024-08-11 08:11] LABS: Hematocrit 33.5 % (37.0-47.0); Hemoglobin 10.6 g/dL (12.0-16.0); Mean Corp Hgb Conc. 31.6 g/dL (33.0-37.0); Mean Corpuscular Hgb 26.9 pg (27.0-31.0); Mean Platelet Volume 9.7 fL (7.4-10.4); Platelet Count 305 10^3/uL (130-400); Red Blood Cell Count 3.94 10^6/uL (4.20-5.40); Red Cell Dist. Width 18.7 % (11.5-14.5); White Blood Cell Count 6.5 10^3/uL (4.8-10.8)
[2024-08-11 08:48] LABS: Blood Urea Nitrogen 73 mg/dl (7-17); Carbon Dioxide 21 mmol/L (22-30); Chloride 109 mmol/L (98-107); Estimated Creatinine Clearance 27 ml/min; Glucose 136 mg/dl (70-99); Magnesium 2.1 mg/dl (1.6-2.3); Potassium 5.1 mmol/L (3.5-5.1); Sodium 138 mmol/L (135-145); eGFR 18.59
--- NOTE | 2024-08-11 09:34 | W.PN.NEPH.HD ---
Assessment
-
Ultrafiltration as tolerated patient remains hypertensive , volume related
Progress Note - Hemodialysis
-
Date of Service: August 11, 2024
Duration: 15 minutes and 3 hours
Potassium Bath: 2
Calcium Bath: 2.5
Opti-Dialyzer: 160
Ultrafiltration: Other (1.5-2kg)
Blood Flow: 400
Dialysate Flow: 600
Heparin: no
EPO: 8000
[2024-08-11] MEDS: COREG 3.125 MG PO ×2 (09:36→20:26)
--- NOTE | 2024-08-11 09:55 | VNURNOTE ---
Chart reviewed. Patient is current with [facility] nursing. Will continue to follow hospital course and DC plans.
[2024-08-11] MEDS: HEPARIN 3900 UNITS INTRACATH (10:00)
[2024-08-11] MEDS: VISBIOME 1 CAP PO (10:44)
[2024-08-11] MEDS: ASPIR LOW (ENTERIC COATED) 81 MG PO (10:44)
[2024-08-11] MEDS: AMOXIL 500 MG PO ×2 (10:44→20:26)
[2024-08-11] MEDS: HEPARIN SC ×2 (10:44→11:03)
[2024-08-11] MEDS: PLAVIX 75 MG PO (10:44)
[2024-08-11] MEDS: KEFLEX 500 MG PO ×2 (10:44→20:26)
[2024-08-11 10:54] VITALS: BP 158/79
[2024-08-11 11:42] LABS: Glucose - Point of Care 112 mg/dl (70-99)
--- NOTE | 2024-08-11 12:05 | W.PN.HOSP.TC ---
Today's Communication/Plan
-
Continue current care
Assessment / Plan
Assessment / Plan
Gen-AAOx3, NAD
HEENT-NC, AT, anicteric, clear oral mm
Neck-supple
CV-reg, no M, +S1/S2
Lungs-decreased breath sounds bilaterally
Abd-soft, NT, ND
Ext-bilateral lower extremity edema
Musculoskeletal-no cyanosis, clubbing
Skin-warm and dry
Neuro-grossly non-focal
Psych-calm, cooperative
Acute hypoxic respiratory insufficiency -suspect due to volume overload, pulmonary edema, advanced chronic kidney disease with progression. Currently on 2 L nasal cannula, wean down as able.
MARYLOU on CKD 4 -likely now ESRD and needs to start dialysis. Nephrology has initiated. Tunneled right IJ dialysis catheter placed by IR August 10.
Grossly volume overloaded with anasarca on exam. Weight is up significantly compared to prior admission. Bilateral lower extremity Doppler ultrasound negative for DVT.
Nongapped metabolic acidosis improving. Bicarb up to 21.
Will need dialysis clinic assignment prior to discharge. Discussed with patient.
Hyperkalemia -due to advanced chronic kidney disease. Potassium improving now. Patient requesting that we take her off potassium restriction. Will defer to nephrology.
Recent right foot osteomyelitis/skin and soft tissue infection/gangrene -completing 6 weeks of antibiotics, today is the last day (amoxicillin, cephalexin).
CAD/CABG
Acute on chronic heart failure preserved EF -suspect trigger for acute heart failure is progression of her chronic kidney disease with volume overload and pulmonary edema. Discharge weight on July 14 was 89 kg, admission weight now is 105 kg.
Received 80 mg of IV Lasix on August 10. Was on bumetanide 2 mg daily prior to admission.
PAD -underwent recent right lower extremity revascularization with angioplasty during last hospitalization. Discharged July 14, 2024.
DM 1 without hyperglycemia -glucose 136 this morning. At home she is on NovoLog sliding scale. Diabetes STEAM HAND consulted, currently on Lantus 3 units at bedtime, NovoLog 2 units AC, NovoLog low resistance corrective scale.
History of stroke
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
Chronic anemia -normocytic. Hemoglobin at baseline. Suspect related to chronic kidney disease.
Paroxysmal SVT
Chronic hearing loss
Full code
Anticipated Discharge: > 48 hours
Subjective/Interval History
-
Date of Service: August 11, 2024
Patient seen and examined. Denies shortness of breath currently. No complaints.
Objective Data
-
Labs:
Laboratory Results
08/11/24
07:24
WBC 6.5
Hgb 10.6 L
Hct 33.5 L
Plt Count 305
Sodium 138
Potassium 5.1
Chloride 109 H
Carbon Dioxide 21 L
BUN 73 H
Creatinine 3.0 H
Glucose 136 H
Calcium 9.0
Vital Signs:
Vital Signs
Temp Pulse Resp BP Pulse Ox
97.7 F 76 16 158/79 99
08/11/24 10:54 08/11/24 10:54 08/11/24 10:54 08/11/24 10:54 08/11/24 10:54
I&O
08/10/24 08/11/24 08/12/24
06:59 06:59 06:59
Intake Total 720 / 720
Output Total 200 / 200
Balance 520 / 520
Review of Systems
-
History Source: Patient
All other systems: Reviewed and negative
--- NOTE | 2024-08-11 14:34 | WOUNDNOTE ---
RIGHT DORSAL FOOT
--- NOTE | 2024-08-11 14:43 | WOUNDNOTE ---
RIGHT DORSAL FOOT
--- NOTE | 2024-08-11 14:46 | CM ---
Patient seen at bedside. Patient reports she resides in an apartment, with an elevator, with her daughter, son, and three younger children. Patient reports she has had VN in the past, Patient has walker. Patient confirms PCP Dr. Daniel, pharmacy [facility]
in [employer] in [place], confirms prescription coverage. Patient was not on HD recently and is not back on HD as of today. CM will call to [facility] to restart HD process for her. Patient spoke with CM and confirmed above information. Patient was not
happy about HD but agreed to restart. Patient was responding to questions but at time does not respond. Patient does not have any interest in going to a SNF. CM will continue to follow for discharge planning needs.
Plan; restart ; [facility] was prior provider.
--- NOTE | 2024-08-11 14:54 | WOUNDNOTE ---
WO RN NOTE: Reviewed chart and met with patient. Patient known from previous admission. Patient follows with [facility] for right dorsal foot diabetic wound. Wound is covered with yellow and black necrotic tissue. Minimal drainage noted, no odor.
Santyl was ordered by podiatry prior to admission and patient would like to continue treatment with Santyl as it remains appropriate. Sacrum with stage 2 PI POA. Dressing maintained. Static air overlay placed. Heels intact and off-loaded with
pillows under calves. Patient is on a turning schedule. She reports fair appetite. Will follow as needed.
[2024-08-11 15:50] VITALS: BP 146/64
[2024-08-11] MEDS: NOVOLOG FLEXPEN SC ×2 (16:07→20:25)
[2024-08-11 16:34] LABS: Glucose - Point of Care 189 mg/dl (70-99)
[2024-08-11] MEDS: LIPITOR 80 MG PO (17:55)
--- NOTE | 2024-08-11 18:26 | PTCARENOTE ---
Pt uncooperative @times throughout shift. Pt now refusing to eat now due to potassium and sodium restriction in diet despite HF/diabetes education. BG 189. Will continue to monitor.
--- NOTE | 2024-08-11 18:32 | PTCARENOTE ---
pt removed O2 in am. maintaining saturation >97% on RA throughout shift.
[2024-08-11 19:10] VITALS: BP 156/63
[2024-08-11] MEDS: HEPARIN 5000 UNITS SC (20:28)
[2024-08-11 21:17] LABS: Glucose - Point of Care 170 mg/dl (70-99)
[2024-08-11] MEDS: LANTUS SC (21:27)
[2024-08-11 23:25] VITALS: BP 136/56
[2024-08-12] MEDS: TYLENOL 650 MG PO ×2 (02:21→08:33)
[2024-08-12 03:05] VITALS: BP 140/61
[2024-08-12 06:00] VITALS: BMI 40.4
[2024-08-12 07:38] VITALS: BP 150/67
[2024-08-12 07:48] LABS: Glucose - Point of Care 135 mg/dl (70-99)
--- NOTE | 2024-08-12 08:11 | PN.DE.MGMTRT ---
Insulin Management
- -
08/12/2024: Diabetes Management follow up
Patient admitted 2/ c/o swelling in L leg and difficulty breathing - volume overload. 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 Patient known to me from previous admissions. Prior to
admission was taking Lantus and NovoLog 'only if she needed it'. A1C from 07/05/24 10%, Cr 3, eGFR 18.59.
Patient is awake alert and oriented, offers no complaints, able to discuss diabetes care.
Pt was started on AC NovoLog 2 units with low corrective insulin and HS Lantus 3 units, tho patient often refuses her insulin.
08/11 Glucose stable 112 to 189. Fasting glucose 135 this AM. Will make no changes to current regimen.
Patient has a glucose monitor with supplies, states she might need additional test strips.
Will cont to follow.
Diabetes History
- -
Type of Diabetes: 2 requiring insulin
Pre-Admission Diabetes Regimen
08/11/24
07:24
Creatinine 3.0 H
Insulin Pump Settings
IP Diabetes Regimen
08/11/24 08/11/24 08/11/24
07:24 11:41 16:32
Glucose 136 H
POC Glucose 112 H 189 H
08/11/24 08/12/24
21:15 07:47
Glucose
POC Glucose 170 H 135 H
Meal type: Lunch
Meal type: Breakfast
Amount consumed: 0
Amount consumed: 100%
Patient Education
[2024-08-12] MEDS: COREG 3.125 MG PO ×2 (08:29→21:03)
[2024-08-12] MEDS: ASPIR LOW (ENTERIC COATED) 81 MG PO (08:29)
[2024-08-12] MEDS: PLAVIX 75 MG PO (08:29)
[2024-08-12] MEDS: VISBIOME 1 CAP PO (08:30)
[2024-08-12] MEDS: SANTYL OINTMENT 1 APPLIC TOPICAL (08:30)
[2024-08-12] MEDS: HEPARIN SC (08:32)
--- NOTE | 2024-08-12 09:04 | PN.CDI ---
CDI
- -
CDI:
Physician Documentation Request
Admit Date: 08/10/24 15:49
Dear Doctor Rashida,
Please review the following and provide your response in the progress notes.
Clinical Indicators:
Height: 5ft 3 in
Weight:228 lb 4 oz
BMI:40.4
If possible, please provide an associated diagnosis related to the abnormal BMI, such as:
BMI > or = to 40
Overweight
Obesity:
Due to excess calories
Drug induced
Due to other cause
Severe or morbid obesity:
- Other
Use of terms such as suspected, likely, concern for, or probable (associated with a specific diagnosis that is being evaluated, monitored, or treated as if it exists) are acceptable and can be coded in the inpatient setting, when documented at the
time of discharge.
Thank you,
Lissett Clark RN
CDI Specialist
Onset Text
Please use your independent medical judgment in providing your response.
[2024-08-12] MEDS: NOVOLOG FLEXPEN SC ×3 (09:19→17:52)
--- NOTE | 2024-08-12 10:59 | CM ---
Addendum entered by Amelia Narayan 08/12/24 14:00:
faxed to [facility] and [facility] applications and request for scheduling of transport and HD clinic/chair. Patient asking for 2nd shift and closest available location.
Original Note:
Patient seen at bedside. CM reviewed plan for return to HD and calls placed to [facility]. Patient also stated that she will need assistance to complete application for transportation to HD. CM will return with application and to update about [facility].
CM will continue to follow for discharge planning needs.
Plan; home with VN; HD and applications for transportation/[facility]
[2024-08-12 11:01] VITALS: BP 118/52
[2024-08-12 11:35] LABS: Glucose - Point of Care 129 mg/dl (70-99)
--- NOTE | 2024-08-12 11:50 | W.PN.HOSP.TC ---
Addendum entered and electronically signed by Rahul Field DO 08/12/24 12:29:
Morbid obesity due to excess calories
Original Note:
Today's Communication/Plan
-
Continue current care
Assessment / Plan
Assessment / Plan
Gen-AAOx3, NAD
HEENT-NC, AT, anicteric, clear oral mm
Neck-supple
CV-reg, no M, +S1/S2
Lungs-decreased breath sounds bilaterally
Abd-soft, NT, ND
Ext-bilateral lower extremity edema
Musculoskeletal-no cyanosis, clubbing
Skin-warm and dry
Neuro-grossly non-focal
Psych-calm, cooperative
Acute hypoxic respiratory insufficiency -suspect due to volume overload, pulmonary edema, advanced chronic kidney disease with progression. Currently on 2 L nasal cannula, wean down as able.
MARYLOU on CKD 4 -likely now ESRD and needs to start dialysis. Nephrology has initiated. Tunneled right IJ dialysis catheter placed by IR August 10.
Grossly volume overloaded with anasarca on exam. Weight is up significantly compared to prior admission. Bilateral lower extremity Doppler ultrasound negative for DVT.
Nongapped metabolic acidosis improving. Bicarb up to 21.
Will need dialysis clinic assignment prior to discharge. Discussed with patient.
Weight is now coming down.
Hyperkalemia -due to advanced chronic kidney disease. Potassium improving now. Patient requesting that we take her off potassium restriction. Will defer to nephrology.
Recent right foot osteomyelitis/skin and soft tissue infection/gangrene -completing 6 weeks of antibiotics, today is the last day (amoxicillin, cephalexin).
CAD/CABG -stable.
Acute on chronic heart failure preserved EF -suspect trigger for acute heart failure is progression of her chronic kidney disease with volume overload and pulmonary edema. Discharge weight on July 14 was 89 kg, admission weight now is 105 kg.
Received 80 mg of IV Lasix on August 10. Was on bumetanide 2 mg daily prior to admission.
PAD -underwent recent right lower extremity revascularization with angioplasty during last hospitalization. Discharged July 14, 2024.
DM 1 without hyperglycemia -glucose 135 this morning. At home she is on NovoLog sliding scale. Diabetes GENERAL INTERNAL MEDICINE DOCTOR consulted, currently on Lantus 3 units at bedtime, NovoLog 2 units AC, NovoLog low resistance corrective scale.
History of stroke
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
Chronic anemia -normocytic. Hemoglobin at baseline. Suspect related to chronic kidney disease.
Paroxysmal SVT
Chronic hearing loss
Full code
PT/OT
Anticipated Discharge: > 48 hours
Subjective/Interval History
-
Date of Service: August 12, 2024
Patient seen and examined. No complaints.
Objective Data
-
Labs:
Laboratory Results
08/12/24
06:00
WBC Pending
Hgb Pending
Hct Pending
Plt Count Pending
Sodium Pending
Potassium Pending
Chloride Pending
Carbon Dioxide Pending
BUN Pending
Creatinine Pending
Glucose Pending
Calcium Pending
Vital Signs:
Vital Signs
Temp Pulse Resp BP Pulse Ox
97.9 F 63 16 118/52 93
08/12/24 11:01 08/12/24 11:01 08/12/24 11:01 08/12/24 11:01 08/12/24 11:01
I&O
08/11/24 08/12/24 08/13/24
06:59 06:59 06:59
Intake Total 720 / 720 1200 / 1200
Output Total 200 / 200 700 / 700
Balance 520 / 520 500 / 500
Review of Systems
-
History Source: Patient
All other systems: Reviewed and negative
[2024-08-12] MEDS: HEPARIN 500 UNITS IV ×2 (12:40→13:40)
--- NOTE | 2024-08-12 13:09 | W.PN.NEPH.HD ---
Assessment
-
Patient seen on dialysis
Systolic blood pressure 114 at current UF
Dialysis again tomorrow
Progress Note - Hemodialysis
-
Date of Service: August 12, 2024
Duration: 45 minutes and 2 hours
Potassium Bath: 2
Calcium Bath: 2.5
Opti-Dialyzer: 160
Ultrafiltration: Other (2 kg)
Blood Flow: 300
Dialysate Flow: 600
Heparin: 500 x 2
EPO: None
[2024-08-12] MEDS: MANNITOL 25% 12.5 GRAMS IV ×2 (13:16→14:27)
[2024-08-12] MEDS: FLEXBUMIN 25% FOR HEMODIALYSIS 12.5 GRAMS IV ×2 (13:17→14:28)
[2024-08-12 15:24] LABS: Blood Urea Nitrogen 62 mg/dl (7-17); Calcium 8.9 mg/dl (8.4-10.2); Carbon Dioxide 21 mmol/L (22-30); Chloride 107 mmol/L (98-107); Estimated Creatinine Clearance 28 ml/min; Glucose 129 mg/dl (70-99); Potassium 4.9 mmol/L (3.5-5.1); Sodium 136 mmol/L (135-145)
[2024-08-12] MEDS: HEPARIN 3900 UNITS INTRACATH (15:24)
[2024-08-12 15:27] VITALS: BP 151/101
[2024-08-12 16:43] LABS: Glucose - Point of Care 127 mg/dl (70-99)
[2024-08-12] MEDS: LIPITOR 80 MG PO (18:10)
[2024-08-12] MEDS: HEPARIN 5000 UNITS SC (21:03)
[2024-08-12 21:35] LABS: Glucose - Point of Care 139 mg/dl (70-99)
[2024-08-12] MEDS: LANTUS SC (22:46)
[2024-08-12 23:00] VITALS: BP 143/62
[2024-08-13 06:00] VITALS: BMI 39.2
[2024-08-13 07:52] LABS: Glucose - Point of Care 132 mg/dl (70-99)
[2024-08-13 07:59] VITALS: BP 161/68
[2024-08-13] MEDS: PLAVIX 75 MG PO (08:58)
[2024-08-13] MEDS: ASPIR LOW (ENTERIC COATED) 81 MG PO (08:58)
[2024-08-13] MEDS: VISBIOME 1 CAP PO (08:58)
[2024-08-13] MEDS: HEPARIN 5000 UNITS SC (08:59)
[2024-08-13] MEDS: SANTYL OINTMENT 1 APPLIC TOPICAL (09:03)
[2024-08-13] MEDS: COREG 3.125 MG PO ×2 (09:03→21:44)
[2024-08-13] MEDS: NOVOLOG FLEXPEN 2 UNITS SC (09:05)
--- NOTE | 2024-08-13 11:38 | PTCARENOTE ---
Pt refusing afternoon blood sugar check. Dr Field made aware.
[2024-08-13 11:46] LABS: Glucose - Point of Care 107 mg/dl (70-99)
[2024-08-13] MEDS: NOVOLOG FLEXPEN SC ×2 (11:46→16:53)
--- NOTE | 2024-08-13 12:17 | W.PN.HOSP.TC ---
Today's Communication/Plan
-
Dialysis today
[place] nasal spray
Assessment / Plan
Assessment / Plan
Gen-AAOx3, NAD
HEENT-NC, AT, anicteric, clear oral mm
Neck-supple
CV-reg, no M, +S1/S2
Lungs-decreased breath sounds bilaterally
Abd-soft, NT, ND
Ext-bilateral lower extremity edema
Musculoskeletal-no cyanosis, clubbing
Skin-warm and dry
Neuro-grossly non-focal
Psych-calm, cooperative
Acute hypoxic respiratory insufficiency -suspect due to volume overload, pulmonary edema, advanced chronic kidney disease with progression. Currently on 2 L nasal cannula, wean down as able.
MARYLOU on CKD 4 -likely now ESRD and needs to start dialysis. Nephrology has initiated. Tunneled right IJ dialysis catheter placed by IR August 10.
Grossly volume overloaded with anasarca on exam. Weight is up significantly compared to prior admission. Bilateral lower extremity Doppler ultrasound negative for DVT.
Nongapped metabolic acidosis improving. Bicarb up to 21.
Will need dialysis clinic assignment prior to discharge. Discussed with patient.
Weight is now coming down.
Hyperkalemia -due to advanced chronic kidney disease. Potassium improving now. Patient requesting that we take her off potassium restriction. Will defer to nephrology.
Recent right foot osteomyelitis/skin and soft tissue infection/gangrene - completed 6 weeks of antibiotics.
CAD/CABG -stable.
Acute on chronic heart failure preserved EF -suspect trigger for acute heart failure is progression of her chronic kidney disease with volume overload and pulmonary edema. Discharge weight on July 14 was 89 kg, admission weight now is 105 kg.
Received 80 mg of IV Lasix on August 10. Was on bumetanide 2 mg daily prior to admission.
PAD -underwent recent right lower extremity revascularization with angioplasty during last hospitalization. Discharged July 14, 2024.
DM 1 without hyperglycemia -glucose 132 this morning. At home she is on NovoLog sliding scale. Diabetes LATHE SET UP PERSON consulted, currently on Lantus 3 units at bedtime, NovoLog 2 units AC, NovoLog low resistance corrective scale.
History of stroke
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
Chronic anemia -normocytic. Hemoglobin at baseline. Suspect related to chronic kidney disease.
Paroxysmal SVT
Chronic hearing loss
Full code
PT/OT
Anticipated Discharge: > 48 hours
Subjective/Interval History
-
Date of Service: August 13, 2024
Patient seen and examined. Complaining of nasal congestion and dryness, fullness in her ears.
Objective Data
-
Vital Signs:
Vital Signs
Temp Pulse Resp BP Pulse Ox
97.3 F 73 16 161/68 95
08/13/24 07:59 08/13/24 07:59 08/13/24 07:59 08/13/24 07:59 08/13/24 07:59
I&O
08/12/24 08/13/24 08/14/24
06:59 06:59 06:59
Intake Total 1200 / 1200 480 / 960 480 / 480
Output Total 700 / 700
Balance 500 / 500 480 / 960 480 / 480
Review of Systems
-
History Source: Patient
All other systems: Reviewed and negative
--- NOTE | 2024-08-13 12:25 | PTCARENOTE ---
RN discussed with patient importance of checking blood sugar. Pt agreed to checking sugar but refused insulin coverage.
--- NOTE | 2024-08-13 12:51 | W.PN.NEPH.HD ---
Assessment
-
Patient seen for HD
sbp stable for u/f
next HD for thursday
patient is stable for discharge from [facility]
Progress Note - Hemodialysis
-
Date of Service: August 13, 2024
Duration: 3 hours
Potassium Bath: 3
Calcium Bath: 2.5
Opti-Dialyzer: 160
Ultrafiltration: Other (2.5kg)
Dialysate Flow: 600
Heparin: 500 times two
EPO: none
[2024-08-13 13:28] LABS: Blood Urea Nitrogen 46 mg/dl (7-17); Calcium 8.6 mg/dl (8.4-10.2); Carbon Dioxide 25 mmol/L (22-30); Chloride 103 mmol/L (98-107); Estimated Creatinine Clearance 28 ml/min; Glucose 139 mg/dl (70-99); Potassium 4.4 mmol/L (3.5-5.1); Sodium 135 mmol/L (135-145)
[2024-08-13] MEDS: HEPARIN 500 UNITS IV ×3 (13:37→15:14)
[2024-08-13 15:12] VITALS: BP 149/66
[2024-08-13] MEDS: HEPARIN 4000 UNITS INTRACATH (15:16)
[2024-08-13] MEDS: TYLENOL 650 MG PO (16:08)
[2024-08-13 16:44] LABS: Glucose - Point of Care 91 mg/dl (70-99)
[2024-08-13] MEDS: LIPITOR 80 MG PO (17:28)
[2024-08-13 21:32] LABS: Glucose - Point of Care 123 mg/dl (70-99)
[2024-08-13] MEDS: HEPARIN SC ×2 (21:44→21:53)
[2024-08-13] MEDS: LANTUS SC ×2 (21:49→21:53)
[2024-08-13 23:19] VITALS: BP 132/61
[2024-08-14 05:21] VITALS: BMI 38.6
[2024-08-14 07:45] VITALS: BP 132/58
[2024-08-14 08:00] LABS: Blood Urea Nitrogen 34 mg/dl (7-17); Calcium 8.7 mg/dl (8.4-10.2); Carbon Dioxide 23 mmol/L (22-30); Chloride 103 mmol/L (98-107); Estimated Creatinine Clearance 31 ml/min; Glucose 118 mg/dl (70-99); Potassium 4.5 mmol/L (3.5-5.1); Sodium 136 mmol/L (135-145); eGFR 23.14
[2024-08-14] MEDS: VISBIOME 1 CAP PO (08:49)
[2024-08-14] MEDS: PLAVIX 75 MG PO (08:50)
[2024-08-14 08:51] LABS: Glucose - Point of Care 113 mg/dl (70-99)
[2024-08-14] MEDS: NOVOLOG FLEXPEN SC ×3 (08:57→16:25)
[2024-08-14] MEDS: SANTYL OINTMENT 1 APPLIC TOPICAL (08:57)
[2024-08-14] MEDS: HEPARIN SC (08:58)
[2024-08-14] MEDS: ASPIR LOW (ENTERIC COATED) 81 MG PO (09:04)
[2024-08-14] MEDS: DRISDOL (VITAMIN D2) 50000 UNITS PO (09:56)
[2024-08-14] MEDS: COREG PO ×2 (09:56→21:22)
[2024-08-14] MEDS: TYLENOL 650 MG PO (10:00)
[2024-08-14] MEDS: OCEAN, SALINE MIST 2 SPRAYS NASAL (10:01)
--- NOTE | 2024-08-14 10:11 | W.PN.HOSP.TC ---
Today's Communication/Plan
-
Saline nasal spray
PT consult
Discharge planning
Assessment / Plan
Assessment / Plan
Gen-AAOx3, NAD
HEENT-NC, AT, anicteric, clear oral mm
Neck-supple
CV-reg, no M, +S1/S2
Lungs-decreased breath sounds bilaterally
Abd-soft, NT, ND
Ext-bilateral lower extremity edema
Musculoskeletal-no cyanosis, clubbing
Skin-warm and dry
Neuro-grossly non-focal
Psych-calm, cooperative
Acute hypoxic respiratory insufficiency -suspect due to volume overload, pulmonary edema, advanced chronic kidney disease with progression. Oxygenation improved, now on room air.
MARYLOU on CKD 4 -likely now ESRD and needs to start dialysis. Nephrology has initiated. Tunneled right IJ dialysis catheter placed by IR August 10.
Grossly volume overloaded with anasarca on exam. Weight is up significantly compared to prior admission. Bilateral lower extremity Doppler ultrasound negative for DVT.
Nongapped metabolic acidosis improving. Bicarb up to 21.
Will need dialysis clinic assignment prior to discharge. Discussed with patient.
Weight is down 7 kg so far.
Hyperkalemia -due to advanced chronic kidney disease. Potassium normalized.
Upper respiratory infection -with nasal congestion and ear congestion. Saline nasal spray ordered.
Recent right foot osteomyelitis/skin and soft tissue infection/gangrene - completed 6 weeks of antibiotics. She is scheduled to see podiatry this Thursday.
CAD/CABG -stable.
Acute on chronic heart failure preserved EF -suspect trigger for acute heart failure is progression of her chronic kidney disease with volume overload and pulmonary edema. Discharge weight on July 14 was 89 kg, admission weight now is 105 kg.
Received 80 mg of IV Lasix on August 10. Was on bumetanide 2 mg daily prior to admission.
PAD -underwent recent right lower extremity revascularization with angioplasty during last hospitalization. Discharged July 14, 2024.
DM 1 without hyperglycemia -glucose 113 this morning. Daytime glucoses controlled. At home she is on NovoLog sliding scale. Diabetes RASCHEL KNITTING MACHINE OPERATOR consulted, currently on Lantus 3 units at bedtime, NovoLog 2 units AC, NovoLog low resistance corrective scale.
History of stroke
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
Chronic anemia -normocytic. Hemoglobin at baseline. Suspect related to chronic kidney disease.
Paroxysmal SVT
Chronic hearing loss
Full code
PT/OT -OT recommending SNF. PT consult pending.
Dispo -awaiting dialysis clinic assignment. Awaiting PT input.
Anticipated Discharge: 24 - 48 hours
Subjective/Interval History
-
Date of Service: August 14, 2024
Patient seen and examined. Complaining of nasal congestion, congestion in her ears.
Objective Data
-
Labs:
Laboratory Results
08/14/24
06:47
Sodium 136
Potassium 4.5
Chloride 103
Carbon Dioxide 23
BUN 34 H
Creatinine 2.5 H
Glucose 118 H
Calcium 8.7
Vital Signs:
Vital Signs
Temp Pulse Resp BP Pulse Ox
97.2 F 75 18 132/58 96
08/14/24 07:45 08/14/24 07:45 08/14/24 07:45 08/14/24 07:45 08/14/24 07:45
I&O
08/13/24 08/14/24 08/15/24
06:59 06:59 06:59
Intake Total 480 / 960 720 / 720
Balance 480 / 960 720 / 720
Review of Systems
-
History Source: Patient
All other systems: Reviewed and negative
--- NOTE | 2024-08-14 10:25 | W.PN.UPDATE ---
Update Note
Progress Note Update
Patient will have dialysis tomorrow orders provided
[2024-08-14 12:13] LABS: Glucose - Point of Care 118 mg/dl (70-99)
--- NOTE | 2024-08-14 14:41 | PTCARENOTE ---
This am, patient c/o nasal and ear congestion and generalized pain. administered PRN Tylenol and nasal spray with some relief. she refused 0800 Heparin, Imdur and Novolog 2units SC despite being told benefits and risks. refusing turns at times.
tolerating diet, vss, will continue to monitor.
[2024-08-14 16:00] VITALS: BP 112/50
[2024-08-14 16:24] LABS: Glucose - Point of Care 110 mg/dl (70-99)
[2024-08-14] MEDS: LIPITOR 80 MG PO (17:39)
[2024-08-14] MEDS: HEPARIN 5000 UNITS SC (21:23)
[2024-08-14 22:02] LABS: Glucose - Point of Care 102 mg/dl (70-99)
[2024-08-14] MEDS: LANTUS SC (22:05)
[2024-08-14 23:55] VITALS: BP 110/57
--- NOTE | 2024-08-15 04:59 | PTCARENOTE ---
Pt refusing her night time carvedilol and lantus, despite patient education. AIRCRAFT ENGINE ASSEMBLER [place] notified.
[2024-08-15 06:00] VITALS: BMI 38.5
[2024-08-15 07:20] VITALS: BP 158/71
[2024-08-15 08:07] LABS: Glucose - Point of Care 87 mg/dl (70-99)
--- NOTE | 2024-08-15 08:24 | PN.DE.MGMTRT ---
Insulin Management
- -
08/15/2024: Diabetes Management follow up
Patient admitted 08/10 c/o swelling in L leg and difficulty breathing - volume overload. 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 Patient known to me from previous admissions. Prior to
admission was taking Lantus and NovoLog 'only if she needed it'. A1C from 07/05/24 10%, Cr 3, eGFR 18.59-->2.5, eGFR 23.14 today.
Patient is awake, alert, oriented, sitting up in chair, pleasant, offers no complaints, able to discuss diabetes care.
Was started on Lantus 3 units, AC NovoLog 2 units with low corrective insulin on 08/11, tho patient often refuses her insulin.
08/14 Glucose stable, premeal range 110 to 118. FBG 87 this AM. No insulin administered for 2 consecutive days.
Will make no changes to current regimen.
Patient has a glucose monitor with supplies, states she might need additional test strips.
Will cont to follow.
Diabetes History
- -
Type of Diabetes: 2 requiring insulin
Pre-Admission Diabetes Regimen
Insulin Pump Settings
IP Diabetes Regimen
08/14/24 08/14/24 08/14/24
08:49 12:12 16:22
POC Glucose 113 H 118 H 110 H
08/14/24 08/15/24
22:01 08:06
POC Glucose 102 H 87
Patient Education
[2024-08-15] MEDS: PLAVIX 75 MG PO (09:17)
[2024-08-15] MEDS: ASPIR LOW (ENTERIC COATED) 81 MG PO (09:17)
[2024-08-15] MEDS: VISBIOME 1 CAP PO (09:17)
[2024-08-15] MEDS: COREG PO ×2 (09:18→20:59)
[2024-08-15] MEDS: HEPARIN SC ×2 (09:18→20:59)
[2024-08-15] MEDS: SANTYL OINTMENT 1 APPLIC TOPICAL (09:19)
[2024-08-15] MEDS: NOVOLOG FLEXPEN SC ×3 (10:27→17:44)
[2024-08-15 11:46] LABS: Glucose - Point of Care 90 mg/dl (70-99)
--- NOTE | 2024-08-15 12:27 | CM ---
Placed a call to [facility] and spoke with a phlebotomy services representative named, Adalberto, who stated that patient has been working with a phlebotomy services representative named, Ana Paula. Ana Paula's contact information is [phone] ext [phone]. Per their records, they have
almost everything needed to consider patient's admission except for, TB Clearance and Hep B Surface Antigen. These results need to be faxed to [phone]. Reference number for patient's case is, #[id number]. Will fax remaining documentation once
available. Attending updated and working on getting the results. Once obtained, will fax Ana Paula to above fax# for determination.
Plan: Case management will continue to follow and assist with discharge planning. Home with outpatient dialysis and BCT transportation to her appointments.
[2024-08-15 13:20] LABS: Hematocrit 36.9 % (37.0-47.0); Hemoglobin 11.8 g/dL (12.0-16.0)
--- NOTE | 2024-08-15 13:33 | W.PN.HOSP.TC ---
Today's Communication/Plan
-
HD today
HD outpatient setup
Assessment / Plan
Assessment / Plan
Assessment:
Acute hypoxic respiratory insufficiency related to volume overload, pulm edema, CKD
- resolved, on room air.
MARYLOU on CKD 4, now progressed to ESRD
- signs and symptoms included progressive anasarca, metabolic acidosis, hyperkalemia
- started on HD; access is tunnelled HD catheter
- nephrology following
- OP HD setup pending. CBC for TB screening ordered
Upper respiratory infection
- with nasal congestion and ear congestion. Saline nasal spray ordered.
Recent right foot osteomyelitis/skin and soft tissue infection/gangrene - completed 6 weeks of antibiotics. She is scheduled to see podiatry this Thursday.
CAD/CABG - stable.
Acute on chronic heart failure preserved EF
- volume managed now by HD
PAD
- underwent recent right lower extremity revascularization with angioplasty during last hospitalization. Discharged July 14, 2024.
DM 1 without hyperglycemia
- RESISTOR COATER following. continue Lantus/Novolog
History of stroke
History of Guillain-Song� syndrome
- with chronic left lower extremity weakness.
Chronic anemia
- normocytic. Hemoglobin at baseline. Suspect related to chronic kidney disease.
Paroxysmal SVT
Chronic hearing loss
DVT ppx: SC Heparin
Code: Full
Anticipated Discharge: Within 24 hours
Subjective/Interval History
-
Date of Service: August 15, 2024
reports edema improved since HD initiated (so far 3 sessions)
Objective Data
-
Labs:
Laboratory Results
08/15/24
12:48
Hgb 11.8 L
Hct 36.9 L
Sodium Pending
Potassium Pending
Chloride Pending
Carbon Dioxide Pending
BUN Pending
Creatinine Pending
Glucose Pending
Calcium Pending
Vital Signs:
Vital Signs
Temp Pulse Resp BP Pulse Ox
98.0 F 74 16 158/71 95
08/15/24 07:20 08/15/24 07:20 08/15/24 07:20 08/15/24 07:20 08/15/24 07:20
I&O
08/14/24 08/15/24 08/16/24
06:59 06:59 06:59
Intake Total 720 / 720 720 / 720
Balance 720 / 720 720 / 720
Physical Exam
-
General: No Apparent Distress
HEENT: Normocephalic and Atraumatic
Respiratory: Negative Wheezes
Cardiac: Regular Rhythm and S1/S2
GI: Soft and Nontender
Musculoskeletal: Edema, Right Lower Extrem and Edema, Left Lower Extrem
Neuro: AO x 3
Hematologic / Lymphatic: No Lymphadenopathy
Psych: Calm
Data Reviewed
-
Total Time Spent with Patient (in minutes): 41
Labs: Labs Reviewed by me
--- NOTE | 2024-08-15 13:33 | W.PN.NEPH.HD ---
Assessment
-
Tolerating treatment.
Will do an extra treatment tomorrow for volume control
Progress Note - Hemodialysis
-
Date of Service: August 15, 2024
Duration: 3 hours
Potassium Bath: 3
Calcium Bath: 2.5
Opti-Dialyzer: 160
Ultrafiltration: Other (2.5kg)
Dialysate Flow: 600
Heparin: 500 times two
EPO: none
[2024-08-15 13:37] LABS: Blood Urea Nitrogen 39 mg/dl (7-17); Calcium 8.8 mg/dl (8.4-10.2); Carbon Dioxide 22 mmol/L (22-30); Chloride 99 mmol/L (98-107); Estimated Creatinine Clearance 25 ml/min; Glucose 101 mg/dl (70-99); Potassium 4.5 mmol/L (3.5-5.1); Sodium 133 mmol/L (135-145); eGFR 17.88
[2024-08-15] MEDS: HEPARIN 500 UNITS IV ×2 (14:14→16:17)
[2024-08-15] MEDS: RETACRIT 4000 UNITS IV (14:14)
[2024-08-15 15:20] VITALS: BMI 38.5
[2024-08-15 15:45] VITALS: BP 174/79
[2024-08-15] MEDS: HEPARIN 4000 UNITS INTRACATH (16:19)
[2024-08-15] MEDS: LIPITOR 80 MG PO (17:33)
[2024-08-15 17:42] LABS: Glucose - Point of Care 108 mg/dl (70-99)
[2024-08-15 21:47] LABS: Glucose - Point of Care 101 mg/dl (70-99)
[2024-08-15] MEDS: LANTUS SC (22:07)
[2024-08-15] MEDS: TYLENOL 650 MG PO (22:56)
[2024-08-15 23:45] VITALS: BP 121/53
[2024-08-16 06:00] VITALS: BMI 37.3
[2024-08-16 06:58] VITALS: BP 158/66
[2024-08-16 07:39] LABS: Glucose - Point of Care 93 mg/dl (70-99)
[2024-08-16] MEDS: VISBIOME 1 CAP PO (08:19)
[2024-08-16] MEDS: SANTYL OINTMENT 1 APPLIC TOPICAL (08:19)
[2024-08-16] MEDS: PLAVIX 75 MG PO (08:19)
[2024-08-16] MEDS: ASPIR LOW (ENTERIC COATED) 81 MG PO (08:19)
[2024-08-16] MEDS: NOVOLOG FLEXPEN SC ×3 (08:20→17:12)
[2024-08-16] MEDS: HEPARIN SC ×2 (08:20→20:39)
[2024-08-16] MEDS: COREG PO ×2 (08:20→20:39)
--- NOTE | 2024-08-16 08:51 | PN.DE.MGMTRT ---
Insulin Management
- -
08/16/2024: Diabetes Management follow up
Patient admitted 08/10 c/o swelling in L leg and difficulty breathing - volume overload. PMH: PAD, CAD, HTN, CKD V, CHF, diabetes, CVA, s/p R 4th and 5th toe amputation, Guillain [place] Syndrome. Patient known to me from previous admissions. Prior to
admission was taking Lantus and NovoLog 'only if she needed it'. A1C from 07/05/24 10%, Cr 3, eGFR 18.59-->2.5, eGFR 23.14 today.
Patient is awake, alert, oriented, sitting up in chair, pleasant, offers no complaints, able to discuss diabetes care.
Was started on Lantus 3 units, AC NovoLog 2 units with low corrective insulin on 08/11, tho patient often refuses her insulin.
08/15 Glucose stable, premeal range 87 to 108. FBG 93 this AM. No insulin administered for 3 consecutive days.
Will make no changes to current regimen.
Patient has a glucose monitor with supplies, states she might need additional test strips.
Will cont to follow.
Diabetes History
- -
Type of Diabetes: 2 requiring insulin
Pre-Admission Diabetes Regimen
08/15/24
12:48
Creatinine 3.1 H
Insulin Pump Settings
IP Diabetes Regimen
08/15/24 08/15/24 08/15/24
11:44 12:48 17:40
Glucose 101 H
POC Glucose 90 108 H
08/15/24 08/16/24
21:45 07:37
Glucose
POC Glucose 101 H 93
Patient Education
[2024-08-16 11:27] LABS: Glucose - Point of Care 85 mg/dl (70-99)
--- NOTE | 2024-08-16 11:27 | W.PN.HOSP.TC ---
Today's Communication/Plan
-
UF today, HD tomorrow
Podiatry consulted for f/u from 07/07/24 surgery
DC planning
Assessment / Plan
Assessment / Plan
Assessment:
Acute hypoxic respiratory insufficiency related to volume overload, pulm edema, CKD
- resolved, on room air.
MARYLOU on CKD 4, now progressed to ESRD
- signs and symptoms included progressive anasarca, metabolic acidosis, hyperkalemia
- started on HD; access is tunnelled HD catheter
- nephrology following
- OP HD setup pending. CXR without evidence of TB. Hep serologies pending.
Upper respiratory infection
- with nasal congestion and ear congestion. Saline nasal spray ordered.
Recent right foot osteomyelitis/skin and soft tissue infection/gangrene - completed 6 weeks of antibiotics. She is scheduled to see podiatry this Thursday; will consult Dr. Casey today
CAD/CABG - stable.
Acute on chronic heart failure preserved EF
- volume managed now by HD
PAD
- underwent recent right lower extremity revascularization with angioplasty during last hospitalization. Discharged July 14, 2024.
DM 1 without hyperglycemia
- MAILING MACHINE HELPER following. continue Lantus/Novolog
History of stroke
History of Guillain-Song� syndrome
- with chronic left lower extremity weakness.
Chronic anemia
- normocytic. Hemoglobin at baseline. Suspect related to chronic kidney disease.
Paroxysmal SVT
Chronic hearing loss
DVT ppx: SC Heparin
Code: Full
Anticipated Discharge: > 48 hours
Subjective/Interval History
-
Date of Service: August 16, 2024
on UF session
no complaints
Objective Data
-
Vital Signs:
Vital Signs
Temp Pulse Resp BP Pulse Ox
99.0 F 74 16 158/66 96
08/16/24 06:58 08/16/24 06:58 08/16/24 06:58 08/16/24 06:58 08/16/24 06:58
I&O
08/15/24 08/16/24 08/17/24
06:59 06:59 06:59
Intake Total 720 / 720 1560 / 1560
Balance 720 / 720 1560 / 1560
Physical Exam
-
General: No Apparent Distress
HEENT: Normocephalic and Atraumatic
Respiratory: Clear to Auscultation; Negative Wheezes
Cardiac: Regular Rhythm and S1/S2
GI: Soft
Neuro: AO x 3
Psych: Calm
Data Reviewed
-
Total Time Spent with Patient (in minutes): 41
Labs: Labs Reviewed by me
--- NOTE | 2024-08-16 11:38 | CM ---
Addendum entered by FCO Mcfarlane 08/16/24 12:17:
Placed a call to [facility] and spoke with a strategic partnership representative named, Nicolette, who stated that patient is officially registered for their services and can call anytime to make an appointment for transportation. She stated to call the day prior to her
appointment by noon.
[phone]
Original Note:
Spoke with attending who stated that patient will be stable for discharge tentatively on . TB results in, still awaiting Hep B. Will fax as soon as results are available.
Plan: Case management will continue to follow and assist with discharge planning. Home with Dialysis.
--- NOTE | 2024-08-16 13:36 | W.PN.NEPH.HD ---
Assessment
-
Ultrafiltration only today dialysis again tomorrow
Progress Note - Hemodialysis
-
Date of Service: August 16, 2024
Duration: 3 hours
Potassium Bath: 3
Calcium Bath: 2.5
Opti-Dialyzer: 160
Ultrafiltration: Other (2.5kg)
Dialysate Flow: 600
Heparin: 500 times two
EPO: none
[2024-08-16 15:17] VITALS: BP 113/62
[2024-08-16 16:30] LABS: Glucose - Point of Care 97 mg/dl (70-99)
[2024-08-16] MEDS: LIPITOR 80 MG PO (17:11)
[2024-08-16] MEDS: TYLENOL 650 MG PO (18:04)
--- NOTE | 2024-08-16 18:56 | W.CS.POD ---
Addendum entered and electronically signed by Braulio Casey DPM 08/18/24 16:53:
Addendum to the procedure: By using #15 blade an excisional debridement of all devitalized tissue from Rt lateral foot ulcer, removed all loose slough and debri from ulcer site
Original Note:
Consult Summary - Podiatry
-
48 yo patient known to me very well, with h/o multiple Rt foot debridements and partial 4th and 5th metatarsal resections in december 2023 , recent surgery of more bone resection from Rt 5th metatarsal due to osteo on 07/07/2024 and was on Po abx per ID,
Now she has stable Rt lateral foot and dorsum aspect ulcer ,slowly healing, She f/u with me as an out patient .
she has type 1 diabetes with CKD on dialysis for short period of time in the past , has multiple comorbidities has been admitted for resp insufficiency, volume over load due to CKD, She is back on dialysis, improved edema lower legs. Stable Rt foot
ulcer
Reviewed PMH, meds and allergies
B/L feet with Intact pedal pulses
Rt lateral foot ulcer smaller, healing with granulation tissue, dry callus a the edges , no necrotic tissue, no purulence, no exposed bone,
Rt dorsum foot ulcer also healing well with pink epithelialization, no drainage, no exposed bone or tendon
A/P; Rt foot diabetic foot ulcers - stable
S/P Bone resection from Rt 5th metatarsal 07/07/2024
CKD
Diabetic vascular disease
Plan : Patient seen at bedside,
Debrided all keratotic skin from Rt lateral foot with # 15 blade
Rt lateral foot healing well, will cont with adaptic and dry gauze and Dillan and gerri wrap
Rt dorsum foot ulcer site with Santyl daily and abd pad
She will f/u in my office after discharge
No surgical intervention by podiatry
[2024-08-16 19:10] LABS: Hepatitis B Surface Antigen Negative (Negative)
[2024-08-16 19:28] LABS: Hepatitis B Core Ab, Total Negative (Negative); Hepatitis B Surface Antibody Positive
[2024-08-16 21:41] LABS: Glucose - Point of Care 160 mg/dl (70-99)
[2024-08-16] MEDS: LANTUS SC (21:45)
[2024-08-16 23:33] VITALS: BP 105/47
[2024-08-17 06:00] VITALS: BMI 36.5
[2024-08-17 07:25] VITALS: BP 142/60
[2024-08-17 07:42] LABS: Glucose - Point of Care 112 mg/dl (70-99)
--- NOTE | 2024-08-17 07:53 | PN.DE.MGMTRT ---
Insulin Management
- -
08/17/2024: Diabetes Management follow up
Patient admitted 08/10 c/o swelling in L leg and difficulty breathing - volume overload. PMH: PAD, CAD, HTN, CKD V, CHF, diabetes, CVA, s/p R 4th and 5th toe amputation, Guillain [place] Syndrome. Patient known to me from previous admissions. Prior to
admission was taking Lantus and NovoLog 'only if she needed it'. A1C from 07/05/24 10%, Cr 3, eGFR 18.59-->2.5, eGFR 23.14 today.
Patient is awake, alert, oriented, sitting up in chair, pleasant, offers no complaints, able to discuss diabetes care.
Was started on Lantus 3 units, AC NovoLog 2 units with low corrective insulin on 08/11, tho patient often refuses her insulin.
08/17 Glucose stable, premeal range 85 to 160 on 08/16. FBG 112 this AM. No insulin administered for 3 consecutive days. Patient has refused HS lantus and AC novolog. No corrective has been required.
Will make no changes to current regimen.
Patient has a glucose monitor with supplies, states she might need additional test strips.
Will cont to follow.
Diabetes History
- -
Type of Diabetes: 2 requiring insulin
Pre-Admission Diabetes Regimen
Insulin Pump Settings
IP Diabetes Regimen
08/16/24 08/16/24 08/16/24
16:29 21:39
POC Glucose 85 97 160 H
08/17/24
07:41
POC Glucose 112 H
Meal type: Lunch
Meal type: Breakfast
Amount consumed: 50%
Amount consumed: 25%
Patient Education
[2024-08-17] MEDS: HEPARIN 1000 UNITS IV (07:55)
[2024-08-17 08:47] LABS: Hematocrit 35.8 % (37.0-47.0); Hemoglobin 10.9 g/dL (12.0-16.0); Mean Corp Hgb Conc. 30.4 g/dL (33.0-37.0); Mean Corpuscular Hgb 25.9 pg (27.0-31.0); Mean Platelet Volume 9.4 fL (7.4-10.4); Platelet Count 189 10^3/uL (130-400); Red Blood Cell Count 4.21 10^6/uL (4.20-5.40); Red Cell Dist. Width 18.2 % (11.5-14.5); White Blood Cell Count 6.8 10^3/uL (4.8-10.8)
[2024-08-17] MEDS: HEPARIN SC ×2 (08:56→20:18)
[2024-08-17] MEDS: COREG PO ×2 (08:56→20:18)
[2024-08-17] MEDS: VISBIOME 1 CAP PO (08:56)
[2024-08-17] MEDS: ASPIR LOW (ENTERIC COATED) 81 MG PO (08:56)
[2024-08-17] MEDS: PLAVIX 75 MG PO (08:56)
[2024-08-17] MEDS: SANTYL OINTMENT 1 APPLIC TOPICAL (08:57)
[2024-08-17] MEDS: NOVOLOG FLEXPEN SC ×3 (08:57→17:14)
[2024-08-17 08:58] LABS: Blood Urea Nitrogen 32 mg/dl (7-17); Calcium 8.3 mg/dl (8.4-10.2); Carbon Dioxide 25 mmol/L (22-30); Chloride 97 mmol/L (98-107); Estimated Creatinine Clearance 23 ml/min; Glucose 113 mg/dl (70-99); Potassium 4.2 mmol/L (3.5-5.1); Sodium 133 mmol/L (135-145); eGFR 16.59
--- NOTE | 2024-08-17 09:02 | W.PN.HOSP.TC ---
Today's Communication/Plan
-
HD today
dc planning in 24 hours to SNF
Assessment / Plan
Assessment / Plan
Assessment:
Acute hypoxic respiratory insufficiency related to volume overload, pulm edema, CKD
- resolved, on room air.
MARYLOU on CKD 4, now progressed to ESRD
- signs and symptoms included progressive anasarca, metabolic acidosis, hyperkalemia
- started on HD; access is tunnelled HD catheter
- nephrology following
- OP HD setup pending. CXR without evidence of TB. Hep serologies no active infection, prior immunity
Upper respiratory infection
- with nasal congestion and ear congestion. Saline nasal spray ordered.
Recent right foot osteomyelitis/skin and soft tissue infection/gangrene - completed 6 weeks of antibiotics
- seen by Dr. Casey 08/16 with bedside excising of keratotic tissue
CAD/CABG - stable.
Acute on chronic heart failure preserved EF
- volume managed now by HD
PAD
- underwent recent right lower extremity revascularization with angioplasty during last hospitalization. Discharged July 14, 2024.
DM 1 without hyperglycemia
- PIPE BOWL PAINT TRIMMER following. continue Lantus/Novolog
History of stroke
History of Guillain-Song� syndrome
- with chronic left lower extremity weakness.
Chronic anemia
- normocytic. Hemoglobin at baseline. Suspect related to chronic kidney disease.
Paroxysmal SVT
Chronic hearing loss
DVT ppx: SC Heparin
Code: Full
Anticipated Discharge: Within 24 hours
Subjective/Interval History
-
Date of Service: August 17, 2024
on HD, tolerating ok
Objective Data
-
Labs:
Laboratory Results
08/17/24
07:29
WBC 6.8
Hgb 10.9 L
Hct 35.8 L
Plt Count 189 D
Sodium 133 L
Potassium 4.2
Chloride 97 L
Carbon Dioxide 25
BUN 32 H
Creatinine 3.3 H
Glucose 113 H
Calcium 8.3 L
Vital Signs:
Vital Signs
Temp Pulse Resp BP Pulse Ox
98.7 F 74 16 142/60 93
08/17/24 07:25 08/17/24 07:25 08/17/24 07:25 08/17/24 07:25 08/17/24 07:25
I&O
08/16/24 08/17/24 08/18/24
06:59 06:59 06:59
Intake Total 1560 / 1560 640 / 640
Output Total 100 / 100
Balance 1560 / 1560 540 / 540
Physical Exam
-
General: No Apparent Distress
HEENT: Normocephalic and Atraumatic
Respiratory: Negative Wheezes
Cardiac: Regular Rhythm and S1/S2
GI: Soft
Musculoskeletal: Edema, Right Lower Extrem and Edema, Left Lower Extrem
Neuro: AO x 3
Hematologic / Lymphatic: No Lymphadenopathy
Psych: Calm
Data Reviewed
-
Total Time Spent with Patient (in minutes): 41
Labs: Labs Reviewed by me
--- NOTE | 2024-08-17 09:35 | W.PN.NEPH.HD ---
Assessment
-
Patient seen on dialysis
Systolic blood pressure stable at 157 at current Eva
Discharge?
Progress Note - Hemodialysis
-
Date of Service: August 17, 2024
Duration: 30 minutes and 3 hours
Potassium Bath: 3
Calcium Bath: 2.5
Opti-Dialyzer: 160
Ultrafiltration: Other (2.5 kg as hemodynamically)
Blood Flow: 400
Dialysate Flow: 600
Heparin: 1000 x 1
EPO: No EPO
[2024-08-17 11:49] LABS: Glucose - Point of Care 81 mg/dl (70-99)
--- NOTE | 2024-08-17 15:15 | CM ---
CM reviewed chart, faxed over Chest X-Ray and Hep B to [facility] [phone], informed there are options for M,W,Fr 2nd shift schedule available, along with , , first shift available. Patient seen bedside, would prefer second shift. Return call
to [facility] ([place]izabeth [phone] ext [phone]) to discuss patient schedule preference, will call CM back to confirm. Discussed patient has been registered for [facility], need to call to schedule transports day before appointment.
Plan; awaiting confirmation from [facility] regarding schedule (M,W, Fr 11:00 a.m. shift).
--- NOTE | 2024-08-17 15:19 | PN.CDI ---
CDI
- -
CDI:
Physician Documentation Request
Admit Date: 08/10/24 15:49
Dear Doctor Jacinto,
Please review the following and provide your response in the progress notes.
Clinical Indicators:
Pt admitted with MARYLOU on CKD 4 progressed to ESRD now on HD
Podiatry consult, ' Rt lateral foot ulcer smaller, healing with granulation tissue, dry callus a the edges....Debrided all keratotic skin from Rt lateral foot with # 15 blade ....Rt lateral foot healing well, will cont with adaptic and dry gauze
and Dillan and gerri wrapRt dorsum foot ulcer site with Santyl daily and abd pad ...'
Please could you provide, in the progress notes further clarification regarding the bedside debridement.
Please specify the type of debridement performed:
1. Excisional Debridement - defined as removal by excision of devitalized tissue, necrosis or slough
2. Non-excisional debridement - defined as removal of devitalized tissue, necrosis or slough by such methods as irrigation, brushing, scrubbing or washing.
Use of terms such as suspected, likely, concern for, or probable (associated with a specific diagnosis that is being evaluated, monitored, or treated as if it exists) are acceptable and can be coded in the inpatient setting, when documented at the
time of discharge.
Thank you,
Lissett Clark RN
CDI Specialist
[place] [facility]
Please use your independent medical judgment in providing your response.
[2024-08-17 15:27] VITALS: BP 120/56
[2024-08-17 16:32] LABS: Glucose - Point of Care 122 mg/dl (70-99)
[2024-08-17] MEDS: LIPITOR 80 MG PO (17:14)
[2024-08-17] MEDS: TYLENOL 650 MG PO (20:18)
[2024-08-17 21:48] LABS: Glucose - Point of Care 139 mg/dl (70-99)
[2024-08-17 23:00] VITALS: BP 108/55
[2024-08-17] MEDS: LANTUS SC (23:05)
[2024-08-18 06:00] VITALS: BMI 35.5
[2024-08-18 07:30] VITALS: BP 161/69
--- NOTE | 2024-08-18 07:43 | PN.DE.MGMTRT ---
Insulin Management
- -
08/18/2024: Diabetes Management follow up
Patient admitted 08/10 c/o swelling in L leg and difficulty breathing - volume overload. PMH: PAD, CAD, HTN, CKD V, CHF, diabetes, CVA, s/p R 4th and 5th toe amputation, Guillain [place] Syndrome. Patient known to me from previous admissions. Prior to
admission was taking Lantus and NovoLog 'only if she needed it'. A1C from 07/05/24 10%, Cr 3, eGFR 18.59-->2.5, eGFR 23.14 today.
Patient is awake, alert, oriented, resting, pleasant, offers no complaints, able to discuss diabetes care.
Was started on Lantus 3 units, AC NovoLog 2 units with low corrective insulin on 08/11, tho patient often refuses her insulin.
08/18 Glucose stable, premeal range 81 to 139 on 08/17. FBG this AM. No insulin administered for 4 consecutive days. Patient has refused HS lantus and AC novolog. No corrective has been required.
Will make no changes to current regimen.
Patient has a glucose monitor with supplies, states she might need additional test strips.
Will cont to follow.
Diabetes History
- -
Type of Diabetes: 2 requiring insulin
Pre-Admission Diabetes Regimen
08/17/24
07:29
Creatinine 3.3 H
Insulin Pump Settings
IP Diabetes Regimen
08/17/24 08/17/24 08/17/24
07:29 11:48 16:31
Glucose 113 H
POC Glucose 81 122 H
08/17/24
21:47
Glucose
POC Glucose 139 H
Meal type: Dinner
Amount consumed: 75%
Patient Education
[2024-08-18] MEDS: ASPIR LOW (ENTERIC COATED) 81 MG PO (07:57)
[2024-08-18] MEDS: HEPARIN SC ×2 (07:57→20:38)
[2024-08-18] MEDS: COREG PO ×2 (07:57→20:38)
[2024-08-18] MEDS: NOVOLOG FLEXPEN SC ×3 (07:57→15:35)
[2024-08-18] MEDS: VISBIOME 1 CAP PO (07:57)
[2024-08-18] MEDS: PLAVIX 75 MG PO (07:57)
[2024-08-18] MEDS: SANTYL OINTMENT 1 APPLIC TOPICAL (07:58)
[2024-08-18 08:01] LABS: Glucose - Point of Care 104 mg/dl (70-99)
[2024-08-18 10:12] VITALS: BP 176/81; PULSE 78; O2SAT 93
--- NOTE | 2024-08-18 11:29 | VNURNOTE ---
Addendum entered by Makayla Ndiaye RN 08/18/24 13:42:
Rec'ed update from Hyade CHAMPION. New plan is for patient to stay today, HD tomorrow at , then DC tomorrow after HD. [facility] will plan to see patient at home over the weekend. [facility] Intake updated.
Original Note:
[facility] liaison met with patient at bedside. She confirms she is agreeable to resume care w/ [facility] and is agreeable to a morning VN visit prior to HD tomorrow (planning on DC from today). Relayed info to [facility] Intake. Liaison spoke w/Shelia on 3W
and requested that pt be sent home with air mattress overlay and Santyl.
--- NOTE | 2024-08-18 11:47 | W.PN.UPDATE ---
Update Note
Progress Note Update
Dialysis tomorrow
Patient can be discharged off dialysis tomorrow and will be transfered to the Thursday schedule at outpatient [facility] rehab at [facility]
She will be safe to go Thursday off dialysis and reinitiate on Thursday
--- NOTE | 2024-08-18 13:14 | W.PN.HOSP.TC ---
Today's Communication/Plan
-
HD tomorrow then discharge home
OP HD to start Thursday ([facility] Schedule)
Assessment / Plan
Assessment / Plan
Assessment:
Acute hypoxic respiratory insufficiency related to volume overload, pulm edema, CKD
- resolved, on room air.
MARYLOU on CKD 4, now progressed to ESRD
- signs and symptoms included progressive anasarca, metabolic acidosis, hyperkalemia
- started on HD; access is tunnelled HD catheter
- nephrology following
- OP HD setup ([facility]) to start 08/22/24. CXR without evidence of TB. Hep serologies no active infection, prior immunity.
Upper respiratory infection
- with nasal congestion and ear congestion. Saline nasal spray ordered.
Recent right foot osteomyelitis/skin and soft tissue infection/gangrene - completed 6 weeks of antibiotics
- seen by Dr. Casey 08/16 with bedside excising of keratotic tissue
CAD/CABG - stable.
Acute on chronic heart failure preserved EF
- volume managed now by HD
PAD
- underwent recent right lower extremity revascularization with angioplasty during last hospitalization. Discharged July 14, 2024.
DM 1 without hyperglycemia
- STRIP MINE SUPERVISOR following. continue Lantus/Novolog
History of stroke
History of Guillain-Song� syndrome
- with chronic left lower extremity weakness.
Chronic anemia
- normocytic. Hemoglobin at baseline. Suspect related to chronic kidney disease.
Paroxysmal SVT
Chronic hearing loss
DVT ppx: SC Heparin
Code: Full
Anticipated Discharge: Within 24 hours
Subjective/Interval History
-
Date of Service: August 18, 2024
no complaints
Objective Data
-
Vital Signs:
Vital Signs
Temp Pulse Resp BP Pulse Ox
98.1 F 78 16 161/69 94
08/18/24 07:30 08/18/24 07:30 08/18/24 07:30 08/18/24 07:30 08/18/24 07:30
I&O
08/17/24 08/18/24 08/19/24
06:59 06:59 06:59
Intake Total 640 / 640 960 / 960
Output Total 100 / 100
Balance 540 / 540 960 / 960
Physical Exam
-
General: No Apparent Distress
HEENT: Normocephalic and Atraumatic
Respiratory: Negative Wheezes
Cardiac: Regular Rhythm and S1/S2
GI: Soft
Neuro: AO x 3
Psych: Calm
Data Reviewed
-
Total Time Spent with Patient (in minutes): 42
Labs: Labs Reviewed by me
--- NOTE | 2024-08-18 13:17 | CM ---
Placed a call to [facility] and spoke with Francesca who confirmed that patient has a start date of 11:00 am at [facility] [address] [place] [address] on 08/22, Thursday, Thursday And Thursday at 11:00. First session patient needs to be there at
10:45. This information will be provided to patient. Patient stated that she will need transportation home when cleared to go. Attending stated that patient will stay at for Dialysis on Thursday. Patient stated that she will need transportation
when discharged. She was advised that she has BCT set up she just needs to call prior to appointment day. She verbalized understanding.
Plan: Case management will continue to follow and assist with discharge planning. Home with resumption of care of VN services.
--- NOTE | 2024-08-18 15:13 | WOUNDNOTE ---
RIGHT LATERAL FOOT
--- NOTE | 2024-08-18 15:14 | WOUNDNOTE ---
RIGHT DORSAL FOOT
--- NOTE | 2024-08-18 15:14 | WOUNDNOTE ---
RIGHT LATERAL FOOT
--- NOTE | 2024-08-18 15:14 | WOUNDNOTE ---
WO RN NOTE: Patient visited to follow up on right foot wounds and stage 2 sacral wound. Patient found on a properly inflated static air overlay. Patient demonstrated ability to turn and stand with assistance. Stage 2 sacral wound appears healed.
No open areas noted. Sacral foam dressing maintained for protection. Notes reviewed from encounter with Dr. Casey on 08/16. All wound care provided to right lateral and dorsal foot as noted by Dr. Casey. Discharge and care plan updated.
Plan is for discharge tomorrow to home. RN Dom updated.
[2024-08-18 15:50] VITALS: BP 125/63
[2024-08-18] MEDS: LIPITOR 80 MG PO (16:22)
[2024-08-18 21:59] LABS: Glucose - Point of Care 196 mg/dl (70-99)
[2024-08-18] MEDS: LANTUS 0.03 UNITS SC (22:20)
[2024-08-18 23:00] VITALS: BP 123/64
[2024-08-19 06:00] VITALS: BMI 35.5
[2024-08-19 07:25] VITALS: BP 161/74
[2024-08-19 07:54] LABS: Glucose - Point of Care 153 mg/dl (70-99)
[2024-08-19] MEDS: HEPARIN 500 UNITS IV ×2 (07:55→08:55)
--- NOTE | 2024-08-19 08:11 | PN.DE.MGMTRT ---
Insulin Management
- -
08/19/2024: Diabetes Management follow up
Patient admitted 08/10 c/o swelling in L leg and difficulty breathing - volume overload. PMH: PAD, CAD, HTN, CKD V, CHF, diabetes, CVA, s/p R 4th and 5th toe amputation, Guillain [place] Syndrome. Patient known to me from previous admissions. Prior to
admission was taking Lantus and NovoLog 'only if she needed it'. A1C from 07/05/24 10%, Cr 3, eGFR 18.59-->2.5, eGFR 23.14 today.
Patient is awake, alert, oriented, resting, pleasant, offers no complaints, able to discuss diabetes care.
Was started on Lantus 3 units, AC NovoLog 2 units with low corrective insulin on 08/11, tho patient often refuses her insulin.
08/18 Glucose stable, premeal range 81 to 139 on 08/17. FBG this AM. No insulin administered for 4 consecutive days. Patient has refused HS lantus and AC novolog. No corrective has been required.
Will make no changes to current regimen.
Patient has a glucose monitor with supplies, states she might need additional test strips.
Will cont to follow.
Diabetes History
- -
Type of Diabetes: 2 requiring insulin
Pre-Admission Diabetes Regimen
Insulin Pump Settings
IP Diabetes Regimen
08/18/24 08/19/24
21:58 07:53
POC Glucose 196 H 153 H
Patient Education
[2024-08-19 08:26] LABS: Hemoglobin 11.4 g/dL (12.0-16.0)
[2024-08-19 08:36] LABS: Blood Urea Nitrogen 30 mg/dl (7-17); Calcium 8.5 mg/dl (8.4-10.2); Carbon Dioxide 28 mmol/L (22-30); Chloride 100 mmol/L (98-107); Estimated Creatinine Clearance 19 ml/min; Glucose 178 mg/dl (70-99); Potassium 4.1 mmol/L (3.5-5.1); Sodium 135 mmol/L (135-145)
[2024-08-19] MEDS: RETACRIT 4000 UNITS IV (09:05)
[2024-08-19] MEDS: ASPIR LOW (ENTERIC COATED) 81 MG PO (09:20)
[2024-08-19] MEDS: PLAVIX 75 MG PO (09:20)
[2024-08-19] MEDS: SANTYL OINTMENT 1 APPLIC TOPICAL (09:20)
[2024-08-19] MEDS: VISBIOME 1 CAP PO (09:20)
[2024-08-19] MEDS: NOVOLOG FLEXPEN SC ×3 (09:48→18:05)
[2024-08-19] MEDS: COREG PO (09:51)
[2024-08-19] MEDS: HEPARIN SC (09:57)
--- NOTE | 2024-08-19 10:20 | W.PN.NEPH.HD ---
Progress Note - Hemodialysis
-
Date of Service: August 19, 2024
Duration: 30 minutes and 3 hours
Potassium Bath: 3
Calcium Bath: 2.5
Opti-Dialyzer: 160
Ultrafiltration: Other (2.5 kg as hemodynamically)
Blood Flow: 400
Dialysate Flow: 600
Heparin: 1000 x 1
EPO: No EPO
[2024-08-19] MEDS: HEPARIN 3900 UNITS INTRACATH (11:58)
--- NOTE | 2024-08-19 12:09 | W.PN.HOSP.TC ---
Addendum entered and electronically signed by Mei Lima MD 08/19/24 15:26:
Sacrum pressure injury stage 2
Original Note:
Today's Communication/Plan
-
dc home/VN today
Assessment / Plan
Assessment / Plan
Assessment:
Acute hypoxic respiratory insufficiency related to volume overload, pulm edema, CKD
- resolved, on room air.
MARYLOU on CKD 4, now progressed to ESRD
- signs and symptoms included progressive anasarca, metabolic acidosis, hyperkalemia
- started on HD; access is tunnelled HD catheter
- nephrology following
- OP HD setup ([facility]) to start 08/22/24. CXR without evidence of TB. Hep serologies no active infection, prior immunity.
Upper respiratory infection
- with nasal congestion and ear congestion. Saline nasal spray ordered.
Recent right foot osteomyelitis/skin and soft tissue infection/gangrene - completed 6 weeks of antibiotics
- seen by Dr. Casey 08/16 with bedside excising of keratotic tissue
CAD/CABG - stable.
Acute on chronic heart failure preserved EF
- volume managed now by HD
PAD
- underwent recent right lower extremity revascularization with angioplasty during last hospitalization. Discharged July 14, 2024.
DM 1 without hyperglycemia
- KETTLE CLEANER following. continue Lantus/Novolog
History of stroke
History of Guillain-Song� syndrome
- with chronic left lower extremity weakness.
Chronic anemia
- normocytic. Hemoglobin at baseline. Suspect related to chronic kidney disease.
Paroxysmal SVT
Chronic hearing loss
DVT ppx: SC Heparin
Code: Full
More than 30 minutes spent in discharge including
Final examination of the patient
Summarizing hospital stay
Instructions for continuing care to all relevant caregivers
Preparation of discharge records, prescriptions, and referral forms
Total time spent (in minutes): 41
Anticipated Discharge: Today
Subjective/Interval History
-
Date of Service: August 19, 2024
denies any complaints
Objective Data
-
Labs:
Laboratory Results
08/19/24
08:11
Hgb 11.4 L
Hct 37.0
Sodium 135
Potassium 4.1
Chloride 100
Carbon Dioxide 28
BUN 30 H
Creatinine 3.8 H
Glucose 178 H
Calcium 8.5
Vital Signs:
Vital Signs
Temp Pulse Resp BP Pulse Ox
98.4 F 77 16 161/74 97
08/19/24 07:25 08/19/24 07:25 08/19/24 07:25 08/19/24 07:25 08/19/24 07:25
I&O
08/18/24 08/19/24 08/20/24
06:59 06:59 06:59
Intake Total 960 / 960 1220 / 1220
Output Total 0 / 0
Balance 960 / 960 1220 / 1220
Physical Exam
-
General: No Apparent Distress
HEENT: Normocephalic and Atraumatic
Respiratory: Negative Wheezes
Cardiac: Regular Rhythm and S1/S2
GI: Soft
Genito-urinary: No Costovertebral Tender
Neuro: AO x 3
Psych: Calm
Data Reviewed
-
Total Time Spent with Patient (in minutes): 42
Labs: Labs Reviewed by me
--- NOTE | 2024-08-19 12:11 | W.DS.TRANS ---
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
-
Discharge Instructions:
Sleep Apnea Risk Intermediate
Discharge Diagnosis/Procedures CKD5 now ESRD, initiate on HD
Diet 2 Gram Sodium,Restrict fluids to 48 oz
Additional Diets 2 gram potassium
Activity As tolerated
Bathing Restrictions None
Other Services PT,OT
Instructions:
Stand-Alone Forms:
Changes to Home Medications: No
Discharge Medications:
DC Medications w/original date entered in [facility] [employer]
aspirin 81 mg tablet,delayed release 81 mg PO DAILY Blood Clot Prevention/Tx #30 tabs 05/04/23
Lactobac no.2-Bifidobac no.1-S. thermo 112.5 billion cell capsule (Visbiome) 1 cap PO DAILY probiotic 02/15/24
ergocalciferol (vitamin D2) 1,250 mcg (50,000 unit) capsule 1,250 mcg PO HANSON Supplement 02/15/24
acetaminophen 325 mg tablet (Tylenol) 650 mg PO Q6HPRN PRN mild pain 08/10/24
insulin aspart U-100 100 unit/mL (3 mL) subcutaneous pen (Novolog FlexPen U-100 Insulin aspart) 1 sliding scale dose SC TIDPRN PRN high blood sugar 08/10/24
loperamide 2 mg tablet 2 mg PO DAILYPRN PRN diarrhea 08/10/24
atorvastatin 40 mg tablet 80 mg (2 x 40 mg) PO QPM High Cholesterol #30 tabs 08/18/24
carvedilol 3.125 mg tablet (Coreg) 3.125 mg PO BID Blood Pressure #60 tabs 08/18/24
clopidogrel 75 mg tablet 75 mg PO DAILY Blood clot prevention/tx #30 tabs 08/18/24
collagenase clostridium histo. 250 unit/gram topical ointment (Santyl) 1 applic topical DAILY RIGHT FOOT WOUND #90 grams 08/18/24
insulin aspart U-100 100 unit/mL (3 mL) subcutaneous pen (Novolog FlexPen U-100 Insulin aspart) 2 unit (0.02 mL) SC AC #5 ea 08/18/24
insulin glargine 100 unit/mL (3 mL) subcutaneous pen (Lantus Solostar U-100 Insulin) 3 unit (0.03 mL) SC HS #5 ea 08/18/24
pen needle, diabetic 32 gauge x ' (BD Ultra-Fine Fatou Pen Needle) #200 08/18/24
Home Medication Changes
Pending Results: No
Total time spent discharging patient (in min): 41
--- NOTE | 2024-08-19 14:56 | PN.CDI ---
CDI
- -
CDI:
Physician Documentation Request
Admit Date: 08/10/24 15:49
Dear Doctor Clarence,
Please review the following and provide your response in the progress notes.
Clinical Indicators:
Pt admitted with MARYLOU on CKD 4 progressed to ESRD now on HD
Documented per 08/18 WOCN note, ' Patient visited to follow up on right foot wounds and stage 2 sacral wound. ....Stage 2 sacral wound appears healed. No open areas noted. Sacral foam dressing maintained for protection....'
Documented per nursing wound care note 08/10, ' Sacrum pressure injury stage 2 ...silicone border placed ...'
Physician documentation of the type and location of wounds is required for compliant documentation. Based on the above clinical findings and your assessment, please provide the following in your progress note:
1. Location of the ulcer/wound, including laterality.
2. Type (etiology) of ulcer/wound:
- Pressure (decubitus) ulcer
- Non-healing surgical wound
- Other ( please specify)
Use of terms such as suspected, likely, concern for, or probable (associated with a specific diagnosis that is being evaluated, monitored, or treated as if it exists) are acceptable and can be coded in the inpatient setting, when documented at the
time of discharge.
Thank you,
Lissett Clark RN
CDI Specialist
[place] [facility]
Please use your independent medical judgment in providing your response.
*Source: National Pressure Ulcer Advisory Panel (NPUAP)
[2024-08-19 16:00] VITALS: BP 162/72
--- NOTE | 2024-08-19 17:01 | CM ---
Met with patient, provided all information for BCT and dialysis. Nurse at bedside as well. CM director assisted with setting up transportation for patient. Transport arranged for 20:00. Address confirmed with patient. Attending updated.
Plan: Case management will continue to follow and assist with discharge planning. Home with outpatient dialysis.
[2024-08-19] MEDS: LIPITOR 80 MG PO (18:06)
[2024-08-19 18:10] LABS: Glucose - Point of Care 138 mg/dl (70-99)
[2024-08-19 20:00] VITALS: BP 162/66
--- NOTE | 2024-08-19 20:30 | PTCARENOTE ---
Assumed care of patient from previous RN, patient set up to be DCd home with ambulance pickup at 20:00pm. Patient awake, alert, no complaints other than she is ready to go home and is upset that she has been waiting all day. Patient with no c/o
pain. VSS. No changes from previous assessment. Medications returned to patient from pharmacy upon discharge. Ambulance arrived approx 20:30pm to transport patient home.
== END 2024-08-19 21:00 | disposition home health service (06) | DRG 673 ==
LOC: 3 WEST ACU 15:49
PROVIDERS: Physician Assistant Medical; Radiology Vascular & Interventional Radiology; Specialist; ADMITTING PHYSICIAN Internal Medicine; CONSULT PHYSICIAN Internal Medicine; CONSULT PHYSICIAN Podiatrist Foot & Ankle Surgery; EMERGENCY PHYSICIAN Emergency Medicine
PROC: 0JH60XZ Insertion of Tunneled Vascular Access Device into Chest Subcutaneous Tissue and Fascia, Open Approach (ICD-10-PCS; 2024-08-10)
PROC: 0JBQ0ZZ Excision of Right Foot Subcutaneous Tissue and Fascia, Open Approach (ICD-10-PCS; 2024-08-16)
DX: N17.9 Acute kidney failure, unspecified (principal); I50.33 Acute on chronic diastolic (congestive) heart failure; E87.21 Acute metabolic acidosis; E10.52 Type 1 diabetes mellitus with diabetic peripheral angiopathy with gangrene; I47.19 Other supraventricular tachycardia; I13.2 Hypertensive heart and chronic kidney disease with heart failure and with stage 5 chronic kidney disease, or end stage renal disease; M86.171 Other acute osteomyelitis, right ankle and foot; Z68.41 Body mass index [BMI] 40.0-44.9, adult; N18.6 End stage renal disease; Z11.52 Encounter for screening for COVID-19; E87.5 Hyperkalemia; R09.02 Hypoxemia; R06.89 Other abnormalities of breathing; E10.65 Type 1 diabetes mellitus with hyperglycemia; I25.10 Atherosclerotic heart disease of native coronary artery without angina pectoris; Z95.1 Presence of aortocoronary bypass graft; Z79.82 Long term (current) use of aspirin; Z99.2 Dependence on renal dialysis; L89.152 Pressure ulcer of sacral region, stage 2; D50.9 Iron deficiency anemia, unspecified; E10.22 Type 1 diabetes mellitus with diabetic chronic kidney disease; E10.621 Type 1 diabetes mellitus with foot ulcer; E10.628 Type 1 diabetes mellitus with other skin complications; E10.69 Type 1 diabetes mellitus with other specified complication; H91.90 Unspecified hearing loss, unspecified ear; L08.9 Local infection of the skin and subcutaneous tissue, unspecified; Z79.02 Long term (current) use of antithrombotics/antiplatelets; Z79.4 Long term (current) use of insulin; Z79.899 Other long term (current) drug therapy; E66.01 Morbid (severe) obesity due to excess calories
CPT/HCPCS: 36558; 71046; 76937; 77001; 80048; 80053; 82962; 83735; 83880; 84484; 85014; 85018; 85025; 85027; 85610; 85730; 86704; 86706; 87340; 87502; 87811; 93005; 93922; 93925; 93971; 97116; 97161; 97167; 97530; 97535; 99152; 99153; 99285; C1750; C1769; G0257; P9047; Q5106

== ENCOUNTER 2024-10-18 13:36 | Inpatient (IN) | payer OTHER, SELFPAY ==
[2024-10-18] VITALS (13 sets, daily range): BP systolic 113–159; BP diastolic 49–72
[2024-10-18 10:18] LABS: % Basophils 0.7 % (0-2); % Eosinophils 0.3 % (0-6); % Lymphocytes 14.3 % (20.5-51.1); % Monocytes 11.2 % (1.7-9.3); % Neutrophils 71.5 % (42.2-75.2); Absolute Basophils 0.1 10^3/uL (0-0.2); Absolute Immature Granulocytes 0.2 10^3/uL (0-0.05); Absolute Lymphocytes 1.5 10^3/uL (1.2-3.4); Absolute Monocytes 1.2 10^3/uL (0.1-0.6); Absolute Neutrophils 7.6 10^3/uL (1.4-6.5); Hematocrit 36.1 % (37.0-47.0); Hemoglobin 10.8 g/dL (12.0-16.0); Mean Corp Hgb Conc. 29.9 g/dL (33.0-37.0); Mean Corpuscular Hgb 26.5 pg (27.0-31.0); Mean Corpuscular Volume 88.5 fL (81.0-99.0); Mean Platelet Volume 9.1 fL (7.4-10.4); Nucleated Red Blood Cells % 1.4 %; Platelet Count 308 10^3/uL (130-400); Red Blood Cell Count 4.08 10^6/uL (4.20-5.40); White Blood Cell Count 10.7 10^3/uL (4.8-10.8)
[2024-10-18 10:57] LABS: ALT (SGPT) 24 U/L (0-35); AST (SGOT) 45 U/L (14-36); Albumin 3.5 g/dl (3.5-5.0); Alkaline Phosphatase 659 U/L (38-126); Blood Urea Nitrogen 17 mg/dl (7-17); Calcium 8.9 mg/dl (8.4-10.2); Carbon Dioxide 27 mmol/L (22-30); Chloride 100 mmol/L (98-107); Glucose 267 mg/dl (70-99); Potassium 6.1 mmol/L (3.5-5.1); Sodium 138 mmol/L (135-145); Total Protein 7.7 g/dl (6.3-8.2); eGFR 21.94
[2024-10-18 11:06] LABS: Troponin I 0.043 ng/ml
--- NOTE | 2024-10-18 11:49 | ED.GENMED ---
History of Present Illness
General
Chief Complaint: Weakness
Time Seen by Provider: 10/18/24 10:03
History of Present Illness
History of Present Illness:
49-year-old female with history of end-stage renal disease on hemodialysis Thursday presenting for increased confusion and lethargy at home. Patient lives with her son. She reportedly had full dialysis session yesterday. Patient is
a very limited historian, incredibly hard of hearing and blind, unable to presently communicate. Did call son who notes that this morning seemed to have increased difficulty hearing from her baseline, seemed more lethargic. Confirms full dialysis
session yesterday. No additional history obtained at this time.
Past History
Past History
ED Past Medical History: CAD, CHF, CVA, HTN, Hypercholesterolemia, IDDM, Renal failure and Other (Guillian-barre, blind right eye)
ED Past Surgical History: Cardiac (CABG in 1981), Orthopedic and Other
Patient has exhibited threatening behavior?: No
Social History
Tobacco: Non-smoker
Alcohol: Occasional
Drug: None
Personal: Other
Living: with family
Employment: Other
Family History
Family History: Other
Phy Exam
Physical Exam
Physical Exam:
General: Well-appearing, no clinical signs of dehydration
HEENT: protecting airway
Neck: appears supple
CV: Normal heart rate, regular rhythm
Resp: No accessory muscle use, no increased work of breathing, lungs clear to auscultation bilaterally
Abd: Soft and non-distended, no tenderness to palpation
Extremities: No deformities, +2 pitting edema
Neuro: alert, no focal neurologic deficit
: deferred
Rectal: deferred
Psych: Normal affect
Skin: Intact
Course
Orders/Labs/Results
Orders:
Orders
10/18/24 10:08
Electrocardiogram (*1) Urgent
Reason for Study: Fatigue / Weakness
10/18/24 10:09
EKG- Treatment ONCE
Complete Blood Count/With Diff Urgent
Comprehensive Metabolic Panel Urgent
Troponin I Urgent
10/18/24 11:16
CR Chest - 2 Views Urgent
Comment:
Reason For Exam: confusion, volume overload, ESRD
Abnormal Lab Results
10/18/24
10:09
RBC 4.08 L 10^6/uL
(4.20-5.40)
Hgb 10.8 L g/dL
(12.0-16.0)
Hct 36.1 L %
(37.0-47.0)
MCH 26.5 L pg
(27.0-31.0)
MCHC 29.9 L g/dL
(33.0-37.0)
RDW 22.0 H %
(11.5-14.5)
Abs Immat Gran (auto) 0.2 H 10^3/uL
(0-0.05)
Absolute Neuts (auto) 7.6 H 10^3/uL
(1.4-6.5)
Absolute Monos (auto) 1.2 H 10^3/uL
(0.1-0.6)
Immature Gran % 2.0 H %
(0-0.5)
Lymphocytes % 14.3 L %
(20.5-51.1)
Monocytes % 11.2 H %
(1.7-9.3)
Potassium 6.1 H* mmol/L
(3.5-5.1)
Creatinine 2.6 H mg/dL
(0.6-1.0)
Glucose 267 H mg/dl
(70-99)
Total Bilirubin 2.0 H mg/dl
(0.2-1.3)
AST 45 H U/L
(14-36)
Alkaline Phosphatase 659 H U/L
(38-126)
Troponin I 0.043 H* ng/ml
10/18/24 10:09
10/18/24 10:09
Vital Signs
Initial and Last Documented VS:
Initial Vital Signs
BP
141/56
10/18/24 10:00
Last Documented Vital Signs
Temp Pulse Resp BP Pulse Ox
97.7 F 81 16 150/65 99
10/18/24 10:01 10/18/24 11:00 10/18/24 11:07 10/18/24 11:00 10/18/24 11:00
MDM/Problems Addressed
MDM/Problems Addressed:
49-year-old female with history of end-stage renal disease on hemodialysis M WF presenting for increased confusion and lethargy. Vital signs on arrival are normal.
On exam patient is resting comfortably, no acute distress. Patient is incredibly hard of hearing, visual impaired as well as her difficulty communicating. She is presently in no respiratory distress, however intermittently oxygen saturations will
drop, requiring nasal cannula with improvement. Patient does appear to be volume overloaded with lower extremity swelling and upper extremity swelling. Patient at times does have some strange delusions. Notes that she is being 'poisoned'.
Concerned that patient could possibly be uremic as well. Plan for laboratory analysis and chest x-ray imaging.
11:50 - Labs confirm a potassium of 6.1. No significant EKG changes. Chest x-ray does show some pulmonary edema. Again feel that patient will require admission and hemodialysis. Will alert the
*EKG
Interpreted by ED Provider?: Yes
EKG Intrepretation Date: 10/18/24
EKG Intrepretation Time: 11:55
Interpretation: normal
Comparison EKG: no changes (08/10/24)
Heart Rate: 80
Rate: normal
Rhythm: sinus
[place]: right axis deviation
Interval: normal interval
QRS Pattern: normal QRS
Ischemia: no ischemia
*Critical Care Note
Total Time (30-74mins, 75-104mins- exclusive of procedures): Not Applicable
ED Attending Note
-
Portions of this chart may have been created with voice recognition software.� Occasional wrong word or��sound alike� substitutions may have occurred due to the inherent limitations of voice recognition software.
Discharge Plan
Departure
Prescriptions:
No Action
aspirin 81 mg Tablet,Delayed Release (Dr/Ec)
81 mg PO DAILY Qty: 30 0RF
ergocalciferol (vitamin D2) 1,250 mcg (50,000 unit) capsule
1,250 mcg PO HANSON
Visbiome 112.5 billion cell Capsule
1 cap PO DAILY
acetaminophen [Tylenol] 325 mg Tablet
650 mg PO Q6HPRN PRN (Reason: mild pain)
loperamide 2 mg Tablet
2 mg PO DAILYPRN PRN (Reason: diarrhea)
insulin aspart U-100 [Novolog FlexPen U-100 Insulin] 100 unit/mL (3 mL) Insulin Pen
1 sliding scale dose SC TIDPRN PRN (Reason: high blood sugar)
insulin aspart U-100 [Novolog FlexPen U-100 Insulin] 100 unit/mL (3 mL) Insulin Pen
2 unit SC AC Qty: 5 1RF
insulin glargine [Lantus Solostar U-100 Insulin] 100 unit/mL (3 mL) Insulin Pen
3 unit SC HS Qty: 5 1RF
atorvastatin 40 mg tablet
80 mg PO QPM Qty: 30 0RF
clopidogrel 75 mg Tablet
75 mg PO DAILY Qty: 30 7RF
carvedilol [Coreg] 3.125 mg Tablet
3.125 mg PO BID Qty: 60 0RF
bumetanide [Bumex] 2 mg Tablet
2 mg PO DIRECTED
Rx Instructions:
take on non dialysis days
Referrals:
UNKNOWN - PT NOT,INTERVIEWE [Family Provider] -
Interventions
Interventions:
*Risk Screen - Suicide Last Done: 10/18/24 10:04
*General Assessment Last Done: 10/18/24 10:01
*Neglect/Abuse Screening Last Done: 10/18/24 10:04
*ED- Fall Risk Assessment Last Done: 10/18/24 10:01
*ED COVID-19 Vaccine History Last Done: 10/18/24 10:01
ED- Cardiac Assessment Last Done: 10/18/24 10:06
ED- Neurological Assessment Last Done: 10/18/24 10:06
ED- Pulmonary Assessment Last Done: 10/18/24 10:06
Discharge Date and Time
Print Language: PARAGUAYAN
[2024-10-18] MEDS: CALCIUM GLUCONATE 100 IV (12:20)
--- NOTE | 2024-10-18 12:37 | HPS.HSE ---
Addendum entered and electronically signed by NILDA Velasquez 10/18/24 16:39:
patient refused abx as it gives her diarrhea. instructed the need of diarrhea. patient refused.
Original Note:
Family Physician
-
Family Physician: INTERVIEWE UNKNOWN - PT NOT
Chief Complaint
-
lethargic
History of Present Illness
49-year-old female with history of end-stage renal disease on hemodialysis Thursday, type 2 DM, PAD, CAD, CHF, osteomyelitis presenting for increased confusion and lethargy at home. Patient lives with her son. She reportedly had
full dialysis session yesterday. Patient is a very limited historian, incredibly hard of hearing and blind, unable to presently communicate.
upon arrival she was noted hyperkalemia. received calcium gluconate and calcium in ER.
attempted to reach son to obtain more history but not answering the phone.
Medical History
Past Medical History
Past Medical History: Reports Other
Additional Past Medical History:
Type 2 diabetes
Hypertension
Dyslipidemia
Arthropathy
Paresthesia
Anthology of
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
Diastolic CHF
Past Surgical History: Reports Other
Additional Past Surgical History:
Open heart surgery
Right eye surgery
Social History
Unable to obtain full social history at this time due to: Acuity
Family History
Family History: Not pertinent
Allergies / Home Medications
Allergies reflects when Allergies were last updated in [employer].
Home Medications with original date entered in [employer]
Allergy/Medication List:
Allergies
Allergy/AdvReac Type Severity Reaction Status Date / Time
latex Allergy Hives Verified 07/04/24 11:33
Home Medications
aspirin 81 mg tablet,delayed release 81 mg PO DAILY Blood Clot Prevention/Tx #30 tabs 05/04/23
Lactobac no.2-Bifidobac no.1-S. thermo 112.5 billion cell capsule (Visbiome) 1 cap PO DAILY probiotic 02/15/24
ergocalciferol (vitamin D2) 1,250 mcg (50,000 unit) capsule 1,250 mcg PO HANSON Supplement 02/15/24
acetaminophen 325 mg tablet (Tylenol) 650 mg PO Q6HPRN PRN mild pain 08/10/24
insulin aspart U-100 100 unit/mL (3 mL) subcutaneous pen (Novolog FlexPen U-100 Insulin aspart) 1 sliding scale dose SC TIDPRN PRN high blood sugar 08/10/24
loperamide 2 mg tablet 2 mg PO DAILYPRN PRN diarrhea 08/10/24
atorvastatin 40 mg tablet 80 mg (2 x 40 mg) PO QPM High Cholesterol #30 tabs 08/18/24
carvedilol 3.125 mg tablet (Coreg) 3.125 mg PO BID Blood Pressure #60 tabs 08/18/24
clopidogrel 75 mg tablet 75 mg PO DAILY Blood clot prevention/tx #30 tabs 08/18/24
insulin aspart U-100 100 unit/mL (3 mL) subcutaneous pen (Novolog FlexPen U-100 Insulin aspart) 2 unit (0.02 mL) SC AC #5 ea 08/18/24
insulin glargine 100 unit/mL (3 mL) subcutaneous pen (Lantus Solostar U-100 Insulin) 3 unit (0.03 mL) SC HS #5 ea 08/18/24
bumetanide 2 mg tablet 2 mg PO DIRECTED 10/18/24
Review of Systems
-
Unable to obtain full review of systems at this time due to: Acuity
Physical Exam
Vital Signs
Vital Signs
Temp Pulse Resp BP Pulse Ox
97.7 F 80 16 145/58 100
10/18/24 10:01 10/18/24 12:00 10/18/24 12:17 10/18/24 12:00 10/18/24 12:00
Physical Exam
General: Well Developed, Well Nourished and No Apparent Distress
HEENT: NormoCephalic, Moist mucous membranes and Atraumatic
Respiratory: Clear
Cardiac: S1/S2 and Regular Rhythm; No Murmur or Rub
GI: Soft, Non Tender, Non Distended and Normal Bowel Sounds; No Organomegaly
Rectal: Deferred by Provider
Musculoskeletal: No Clubbing, No Cyanosis and Other (edema b/l LE)
Skin: No Rash
Neuro: AO x 3 and Nonfocal/grossly intact
Psych: Calm
Laboratory Results
-
10/18/24 10:09
10/18/24 10:09
Laboratory Results
Total Bilirubin 2.0 mg/dl (0.2-1.3) H 10/18/24 10:09
AST 45 U/L (14-36) H 10/18/24 10:09
ALT 24 U/L (0-35) 10/18/24 10:09
Alkaline Phosphatase 659 U/L (38-126) H 10/18/24 10:09
Troponin I 0.043 ng/ml H* 10/18/24 10:09
Data Reviewed
-
Lab Data: Labs Reviewed by me
Impression/Plan
-
# Lethargy/metabolic encephalopathy likely uremic
-nephro consulted for dialysis
-blood culture sent from ER
-iv vanco and Zosyn initiated
-ctm
covid, flu obtain
# Hypokalemia
# Concern for fluid overload/acute on chronic heart failure preserved EF
# End-stage renal disease
-Chest x-ray with no acute disease of the chest. Cardiomegaly. Stable
-Bumex continue, Coreg continued
- Nephrology consulted
# Anemia of chronic disease
- Hemoglobin stable at 10.8
- Continue to monitor
# Elevated Trope
- Troponin 0.043
- EKG with normal sinus rhythm. Possible right ventricular hypertrophy. Nonspecific T wave abnormality
-trend trop
#right foot osteomyelitis/skin and soft tissue infection/gangrene - completed 6 weeks of antibiotics
-right lE wrapped
-wound care consulted.
#CAD/CABG - stable.
- Aspirin
#PAD
- Aspirin Plavix continued
#DM 1 without hyperglycemia
- Sliding scale
- CHO diet
- Lantus continued
#History of stroke
#History of Guillain-Song� syndrome
- with chronic left lower extremity weakness.
Paroxysmal SVT
Chronic hearing loss
DVT ppx: SC Heparin
Code: Full
--- NOTE | 2024-10-18 12:47 | W.PN.UPDATE ---
Update Note
Progress Note Update
I could not get any information from the patient is lethargic
Information gathered by chart review and speaking with the ER staff.
This note serves as an addendum to the H&P by gynecologist RONALD Susanna COWAN
HPI
49F Legally blind Rt Eye, HX established HD MWF as of Aug 2024 for advaced CKD5/ESRD , HX CHF, HfpEF, CAD, CVA, IDDM, HLD, HX Guillian-barre dz pw lethargy and increased confusion.
Reviewed VS:
Selected Entries
10/18/24
10:01 10/18/24
11:00
Temp 97.7 F
Pulse 88
Resp Rate 16
Blood pressure 141/56 150/65
SaO2 100
Nasal Cannula flow liters per minute 2
PE
Gen: lethargic , looks toxic , arousable
HEENT:anicteric, puffy face
Neck:supple
Lungs:CTA
Cor:RRR
Abdomen: soft , NT
ANODE BUILDER:lethargic
MS: Myriam edema
Psych: lethargic
Laboratory Tests
08/17/24 08/19/24 10/18/24
07:29 08:11 10:09
Hgb 10.9 L 11.4 L 10.8 L
MCV 88.5
Potassium 6.1 H*
Carbon Dioxide 27
BUN 17
Creatinine 2.6 H
Glucose 267 H
CXR
- No acute disease of the chest.
- Cardiomegaly. Stable
EKG
NORMAL SINUS RHYTHM
RIGHT AXIS DEVIATION
POSSIBLE RIGHT VENTRICULAR HYPERTROPHY
NONSPECIFIC T WAVE ABNORMALITY
ABNORMAL ECG
WHEN COMPARED WITH ECG OF 10-AUG-2024 10:17,
QT HAS LENGTHENED
Confirmed by MD CONCEPCIÓN, BRETT Lakhani ([id number]) on 10/18/2024 10:40:46 AM
Last hospitalist admission:
DATE OF ADMISSION: 08/10/2024 - DATE OF DISCHARGE: 08/19/2024
DISCHARGE DIAGNOSIS:
Chronic kidney disease 5, now end-stage renal
disease. Initiate on hemodialysis.
ASSESSMENT & PLAN
Volume overload complicated with Anasarca and mild acute hypoxic RI requiring 2 L NC O2 but NEG CXR
Associated lethargy 2/2 acute TME hypoxia, Renal failure, volume overload, Infection )
Hyperkalemia
Recently established ESRD/ advanced CKD5 on MWF HD
Of note: OP HD setup ([facility]idi Nguyen) to start 08/22/24. CXR without evidence of TB. Hep serologies no active infection, prior immunity.
- Renal consulted for evaluation of additional volume management
- access is tunnelled HD catheter
- c/w SAFEMAKER Bumex
HX Rt distal Leg dressed up report underlying wound
HX OM
- BCx sent
- will start IV Vanco and Zosyn
- wd care consult
Chronic anemia: somewhat stable
- normocytic. Hemoglobin at baseline. Suspect related to chronic kidney disease.
Decompensated chr HFpEF due to volume expansion
- volume managed now by HD
Elevated TPNI suspect NIMI
No CP
NOS EKG
- Trend TPNI til peak
PAD
- s/p recent right lower extremity revascularization with angioplasty during last hospitalization. Discharged July 14, 2024.
DM 1 t hyperglycemia
- c/w SAFEMAKER Lantus/NovoLog
- add ISS low
HX stroke
HX Guillain-Song� syndrome
- with chronic left lower extremity weakness.
Paroxysmal SVT HX
Chronic hearing loss
DVT Px: SQH
Code: Full
IP TLM
--- NOTE | 2024-10-18 13:51 | W.CON.NEPH ---
Consultation
-
Date/Time Consultation Requested: October 18, 2024 at 12 PM
Date/Time Consultation Performed: October 18, 2024 at 2 PM
Requesting Provider: Dr. Montes
Performing Provider: Dr. Han
Reason for Consultation: ESRD
Medical History
-
Chief Complaint: ESRD
History of Present Illness:
48-year-old female past medical history of right diabetic foot infection status post fifth toe amputation, peripheral arterial disease, ESRD on hemodialysis Thursday [facility] [address] [facility] [place], diastolic CHF,
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
pulmonary HTN, presents with confusion
Of note she was discharged in August where she presented with volume overload. At that time she had stopped dialysis for about 3 months. And she was reinitiated in the hospital
She had full dialysis yesterday Thursday
Potassium 6.1 in the setting of hyperglycemia
Patient is hard of hearing all her history obtained from reviewing chart
Past Medical History
right diabetic foot infection status post fifth toe amputation, peripheral arterial disease, ESRD on hemodialysis , diastolic CHF, presumed type I diabetes, iron deficiency anemia, CVA, paroxysmal SVT, Guillain-Song� with chronic left lower
extremity weakness, hyponatremia, , mitral stenosis, Pulmonary hypertension
Past Surgical History: Tonsilectomy (Eye surgery Open heart surgery as a child) and Other (right foot amputation of Toes)
Social History
Tobacco: Non-Smoker
Alcohol: Former
Drug: None
Personal: Single
Employment: Disabled
Family History
MOther side family with HTN, DM and ESRD On dialysis
Allergies / Home Medications
Allergy/AdvReac Type Severity Reaction Status Date / Time
latex Allergy Hives Verified 07/04/24 11:33
�Medication �Instructions �Recorded �Confirmed �Type
aspirin 81 mg tablet,delayed 81 mg PO DAILY Blood Clot 05/04/23 10/18/24 Rx
release Prevention/Tx #30 tabs
Lactobac no.2-Bifidobac no.1-S. 1 cap PO DAILY probiotic 02/15/24 10/18/24 History
thermo 112.5 billion cell capsule
(Visbiome)
ergocalciferol (vitamin D2) 1,250 1,250 mcg PO HANSON Supplement 02/15/24 10/18/24 History
mcg (50,000 unit) capsule
acetaminophen 325 mg tablet 650 mg PO Q6HPRN PRN mild pain 08/10/24 10/18/24 History
(Tylenol)
insulin aspart U-100 100 unit/mL 1 sliding scale dose SC TIDPRN PRN 08/10/24 10/18/24 History
(3 mL) subcutaneous pen (Novolog high blood sugar
FlexPen U-100 Insulin aspart)
loperamide 2 mg tablet 2 mg PO DAILYPRN PRN diarrhea 08/10/24 10/18/24 History
atorvastatin 40 mg tablet 80 mg (2 x 40 mg) PO QPM High 08/18/24 10/18/24 Rx
Cholesterol #30 tabs
carvedilol 3.125 mg tablet (Coreg) 3.125 mg PO BID Blood Pressure #60 08/18/24 10/18/24 Rx
tabs
clopidogrel 75 mg tablet 75 mg PO DAILY Blood clot 08/18/24 10/18/24 Rx
prevention/tx #30 tabs
insulin aspart U-100 100 unit/mL 2 unit (0.02 mL) SC AC #5 ea 08/18/24 10/18/24 Rx
(3 mL) subcutaneous pen (Novolog
FlexPen U-100 Insulin aspart)
insulin glargine 100 unit/mL (3 3 unit (0.03 mL) SC HS #5 ea 08/18/24 10/18/24 Rx
mL) subcutaneous pen (Lantus
Solostar U-100 Insulin)
bumetanide 2 mg tablet 2 mg PO DIRECTED 10/18/24 10/18/24 History
Review of Systems
-
Unobtainable as patient is unable to respond secondary to difficulty with hearing
She otherwise just states that she feels dry and offers this on her own without direct questioning
Unable to obtain full review of systems at this time due to: Other
Physical Exam
Vital Signs
Vital Signs
Temp Pulse Resp BP Pulse Ox
97.7 F 82 16 144/62 100
10/18/24 10:01 10/18/24 13:00 10/18/24 12:17 10/18/24 13:00 10/18/24 13:03
Lab Results
WBC 10.7 10^3/uL (4.8-10.8) 10/18/24 10:09
RBC 4.08 10^6/uL (4.20-5.40) L 10/18/24 10:09
Hgb 10.8 g/dL (12.0-16.0) L 10/18/24 10:09
Hct 36.1 % (37.0-47.0) L 10/18/24 10:09
Plt Count 308 10^3/uL (130-400) 10/18/24 10:09
Sodium 138 mmol/L (135-145) 10/18/24 10:09
Potassium 6.1 mmol/L (3.5-5.1) H* 10/18/24 10:09
Chloride 100 mmol/L (98-107) 10/18/24 10:09
Carbon Dioxide 27 mmol/L (22-30) 10/18/24 10:09
BUN 17 mg/dl (7-17) 10/18/24 10:09
Creatinine 2.6 mg/dL (0.6-1.0) H 10/18/24 10:09
eGFR 21.94 10/18/24 10:09
Glucose 267 mg/dl (70-99) H 10/18/24 10:09
Calcium 8.9 mg/dl (8.4-10.2) 10/18/24 10:09
Albumin 3.5 g/dl (3.5-5.0) 10/18/24 10:09
Physical Exam
General no acute distress
HEENT no cephalic atraumatic extraocular muscle intact no scleral icterus no JVD neck supple
lungs clear to auscultation bilateral
heart regular S1-S2 positive
abdomen soft nontender positive bowel sounds
extremities edema bilateral
Neurologically nonfocal alert and oriented x 3
Skin no lesions no abrasions no petechiae
Psych normal affect no bizarre behavior
Data Reviewed
-
Radiology: Image Personally Visualized and interpreted (No evidence of pulmonary edema)
Assessment/Plan
-
48-year-old female past medical history of right diabetic foot infection status post fifth toe amputation, peripheral arterial disease, ESRD on hemod[facility] [address] [place] [address]
Impression:
ESRD
Thursday
Hyperkalemia
recent diabetic foot infection of right lateral foot possible osteomyelitis status post angiogram with stent placement on 07/08/2024
History of right diabetic foot infection status post fifth toe amputation on 12/06 and revision fourth toe amputation on 12/13
Peripheral arterial disease status post diagnostic arteriogram, intravascular lithotripsy of the posterior tibial artery and proximal SFA, balloon angioplasty and nitroglycerin injection of posterior tibial artery on 12/21/23
Chronic transaminitis
Type 1 diabetes
ESRD on hemodialysis Thursday and Thursday (stopped two months prior)
Chronic HFpEF
chronic anemia
Moderate aortic stenosis/aortic regurgitation
Mild to moderate mitral stenosis
Paroxysmal SVT
Iron deficiency anemia
History of CVA
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
PLan:
She had full treatment yesterday per patient.
She certainly has increased lower extremity edema but no pulmonary edema.
Potassium 6.1 in the setting of hyperglycemia. Treated with insulin and glucose.
At this time no acute need for dialysis.
Patient nonoliguric from knowledge of her last admission. Continue with diuretics Bumex.
Plan for dialysis tomorrow
Repeat labs this afternoon
[2024-10-18] MEDS: ZOSYN 50 IV (13:55)
[2024-10-18 14:11] LABS: COVID-19 Antigen Negative (Negative)
[2024-10-18 14:25] LABS: Glucose - Point of Care 193 mg/dl (70-99)
[2024-10-18] MEDS: DEXTROSE 50% SYRINGE 25 GRAMS IV (14:25)
[2024-10-18] MEDS: NOVOLIN R 10 UNITS IV (14:26)
[2024-10-18] MEDS: VANCOCIN 530 MG IV (14:33)
--- NOTE | 2024-10-18 15:24 | WOUNDNOTE ---
L UPPER ABDOMEN AND BREAST
--- NOTE | 2024-10-18 15:26 | WOUNDNOTE ---
R ELBOW WITH FLASH
--- NOTE | 2024-10-18 15:26 | WOUNDNOTE ---
R ELBOW WITH FLASH
--- NOTE | 2024-10-18 15:27 | WOUNDNOTE ---
L ELBOW WITH FLASH
--- NOTE | 2024-10-18 15:29 | WOUNDNOTE ---
R HEEL MEDIAL VIEW
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
--- NOTE | 2024-10-18 15:40 | PHA.VAN.IN ---
Assessment
- Assessment
Renal Function: Unknown baseline (2.6)
Concomitant Antimicrobials: Piperacillin/Tazobactam
Historical Micro: History of MRSA infection (07/04/24)
- Previous Dosing Experience
Previous Regimen: Dose by level
Date of Regimen: 07/04/24
Patient's SCR is: Similar to previous dosing experience
Patient's weight is: Similar to previous dosing experience
Plan
- Plan
Initial / Loading Dose: Vanco loading 1500mg administered 10/18/24 1433
Maintenance Regimen: Dose by level
Monitoring: R level 10/19/24 0600
Pharmacokinetics Vancomycin I
- -
Patient Age: 49
Patient Sex: Female
Vancomycin Day #: 1
Indication: Skin And Soft Tissue
Requesting Provider: Satish Mullins
Pertinent Antimicrobial Allergies:
No abx allergies
Height / Weight:
Height 5 ft 3 in
Actual Weight 89.4 kg
Pertinent Past Medical History: T2DM, Guillian-[place], CVA, Immunosupressed
- Vital Signs / Lab Results
Temp Pulse Resp BP Pulse Ox
97.7 F 81 16 137/53 100
10/18/24 10:01 10/18/24 14:00 10/18/24 12:17 10/18/24 14:00 10/18/24 13:15
Lab Results - Hematology
10/18/24
10:09
WBC 10.7
Lab Results - Chemistry
10/18/24
10:09
BUN 17
Creatinine 2.6 H
Albumin 3.5
Microbiology Results
10/18/24 13:32 Influenza Types A & B (JOSEPH) - Final
Nasal Swab Negative for Influenza A & B, NAAT
Negative results must be combined with clinical observations
and patient history.
Nucleic Acid Amplification test (NAAT)performed on the
[employer] platform.
--- NOTE | 2024-10-18 16:25 | PTCARENOTE ---
Received care of pt who was transferred from another room in ED. Pt responds to verbal stimuli but difficult to communicate w/ d/t vision and hearing deficits. Pt conversive and able to make needs known. Pt states she does not want to be on
antibiotics b/c her foot infection was already treated and they give her diarrhea. Pt asked me to get the doctor so she can make sure she will not get more antibiotics - hospitalists made aware.
[2024-10-18 17:01] LABS: Glucose - Point of Care 186 mg/dl (70-99)
[2024-10-18 18:20] LABS: Glucose - Point of Care 132 mg/dl (70-99)
[2024-10-18 18:38] LABS: Potassium 5.4 mmol/L (3.5-5.1)
[2024-10-18 18:56] LABS: Troponin I 0.154 ng/ml
--- NOTE | 2024-10-18 19:32 | PTCARENOTE ---
Pt arrived from ED around 1830. Vital signs stable. Pt pulled from stretcher to bed x3 assist from staff. Pt oriented to room and staff. All needs met at this time.
[2024-10-18] MEDS: NOVOLOG FLEXPEN SC (19:59)
[2024-10-18 20:37] LABS: Glucose - Point of Care 131 mg/dl (70-99)
--- NOTE | 2024-10-18 21:48 | VATNOTE ---
noted left arm with significant swelling compared to right; pt was unable to state why. limb alerted left arm. right wrist IV possibly from EMS; due to extremely poor vasculature, this VAT RN leaving IV in. Right HD dsg changed per protocol.
[2024-10-18] MEDS: LIPITOR 80 MG PO (21:52)
[2024-10-18] MEDS: HEPARIN 5000 UNITS SC (21:53)
[2024-10-18] MEDS: COREG 3.125 MG PO (21:53)
[2024-10-18] MEDS: LIDOCAINE 4% PATCH 1 PATCH TOPICAL (21:54)
[2024-10-18] MEDS: TYLENOL 650 MG PO (21:54)
[2024-10-18 22:26] LABS: Glucose - Point of Care 124 mg/dl (70-99)
[2024-10-18] MEDS: LANTUS 0.03 UNITS SC (22:34)
[2024-10-19] VITALS (7 sets, daily range): BP systolic 108–148; BP diastolic 46–70; BMI 34.3
[2024-10-19 00:38] LABS: Troponin I 0.163 ng/ml
[2024-10-19] MEDS: ZOSYN 50 IV (02:57)
--- NOTE | 2024-10-19 08:31 | VNURNOTE ---
Chart reviewed. Patient is current with [facility] nursing, PT. Will continue to follow hospital course and DC plans.
[2024-10-19] MEDS: VISBIOME 1 CAP PO (09:03)
[2024-10-19] MEDS: ASPIR LOW (ENTERIC COATED) 81 MG PO (09:03)
[2024-10-19] MEDS: PLAVIX 75 MG PO (09:03)
[2024-10-19] MEDS: HYDROPHOR 1 APPLIC TOPICAL (09:04)
[2024-10-19] MEDS: HEPARIN SC ×3 (09:04→21:09)
[2024-10-19 09:07] LABS: Glucose - Point of Care 84 mg/dl (70-99)
--- NOTE | 2024-10-19 09:17 | W.PN.HOSP.TC ---
Addendum entered and electronically signed by Klever Maher MD 10/19/24 23:31:
Attending Addendum-
I saw and evaluated the patient. I reviewed the resident�s note and agree with findings and plan as documented in the resident�s note. Sub: Appears withdrawn. Hard of hearing and blind in one eye. Answering questions appropriately but
intermittently. complains of substernal CP this am. No associated sx non radiating and now resolved. Full 12 point ROS reviewed and negative except as documented Exam: Vitals reviewed in chart GEN-NAd heart RRR SM RUSB LUSB apex lungs crackles at
abses abd soft ND ND pos BS LE 2+ edema b/l RLE in padded boot pulses faint but present right foot wrapped
Plan:
# Atypical CP with likey NIMI
- h/o CAD/PAD
- trend trops
- c/s cards for eval
- check ECHO
# HFpEF
- not in AE
- cont Coreg Bumex
- strict I and O fluid restrict daily weights
# ESRD
-non oliguric per patient
-HD M,W,F
-UF today @ 3L
-ctm
# Hyperkalemia- HD repeat BMP in am
# Anemia of chronic disease- Continue to monitor
# h/o right foot osteomyelitis/skin and soft tissue infection/gangrene 07/08/24- completed 6 weeks of antibiotics
-large right foot dorsal ulcer-POA
-right lE wrapped
-wound care consulted.
-c/s pods
#CAD/CABG
- cont Aspirin coreg atorvastatin
-cards c/s
#PAD
- h/o multiple interventions including right foot toe amp and stent 07/08/24
- Aspirin Plavix continued
- may need vasc c/s
#DM 1 without hyperglycemia
- Sliding scale
- CHO diet
- Lantus continued
#History of multiple strokes
#History of Guillain-Song� syndrome
- with chronic left lower extremity weakness.
Paroxysmal SVT
Chronic hearing loss
one eye blindness
DVT ppx: SC Heparin
Code: Full
ACP
Patient consented to discuss, was alone, time spent explanation of advance directives, changes in health status, patient�s health care wishes if the patient becomes unable to make health decisions, goals of care, code status, and prognosis 'dont
talk to my son about it. hes not mature' denies having POA - 16 minutes
Time spent coordinating care, review of plan of care with resident, personally reviewed previous records in EMR, med rec, labs, radiology, d/w nursing, family total time documented is exclusive of any additional time listed that was spent in advance
care planning discussion -�58 minutes
Original Note:
Today's Communication/Plan
-
trend trops
stop abx
consults pending
dialysis today
Assessment / Plan
Assessment / Plan
49 year old female presenting with extreme fatigue s/p Dialysis
Revisited code status with the patient multiple times, for now she wishes to remain full code. Has no POA.
#Ischemic vs. Nonischemic Myocardial Injury
#Elevated troponins
- chest pain and pressure, troponinemia, ECG showing sinus rhythm with PACs
- will continue to trend trops until peaked
- Cardiology consulted, repeat ECHO ordered
#Acute Exacerbation of HFpEF
- Last Echo 12/2023 showing EF 65-70%, multivalvular disease, elevated PASP 60-65mmHg and Stage II diastolic dysfunction
- clinical signs of acute on chronic volume overload
- was on 2L NC, but is no longer requiring
- ordered repeat Echo
- Cardiology consulted
- c/w Coreg, Bumex
#Acute on Chronic Extreme Fatigue
- patient is ESRD on dialysis w/ heart failure, suspect mostly component of nutritional deficiency vs. worsening multiple chronic diseases
- Will monitor for improvement after dialysis
#Hyperkalemia (resolved)
- 6.1 on admission, given calcium gluconate, decreased to 5.7
- will c/t monitor
#ESRD (on dialysis MWF)
- R sided tunnelled dialysis cath. last received 10/18/2024
- Is on Bumex POA, patient unable to clarify her urine status
- nephro following; appreciate recs
- scheduled for dialysis today
#R Dorsal Foot Wound
#H/o R metatarsal amputation
#H/o osteomyelitis
- open wound on dorsum of R foot
- known to Dr. Casey, consulted
- wound care following
#Multiple acute on chronic non-healing ulcers of various stages
- wound care following
- non-toxic at this time
- c/w dressings and ointment
#Anemia, likely secondary to chronic disease and ESRD
- hgb at baseline, no signs of active bleeding
- given one dose EPO
- transfuse to keep hgb >7
#IDDM Type II
- h/o of poorly controlled Type II DM, prior A2Cs seem to be around 9-11%
- pending repeat A1C% this admission
- c/w 3U long acting QHS and 2U AC
- glucose checks have been <200 during this admission
- c/w statin
CHRONIC STABLE
#h/o CVA - c/w aspirin/plavix
#h/o Paroxysmal SVT
#H/o Guillain-[place] syndrome
#chronic hearing loss, secondary to diabetic neuropathy
Regular Diet
DVT Ppx: Heparin SC
Code Status: Full Code
Anticipated Discharge: 24 - 48 hours
Subjective/Interval History
-
Date of Service: October 19, 2024
having chest pain/pressure this am. feeling weak, no different than yesterday. no sob or palpitations.
Objective Data
-
Labs:
Laboratory Results
10/19/24
06:00
WBC Pending
Hgb Pending
Hct Pending
Plt Count Pending
Sodium Pending
Potassium Pending
Chloride Pending
Carbon Dioxide Pending
BUN Pending
Creatinine Pending
Glucose Pending
Calcium Pending
Total Bilirubin Pending
AST Pending
ALT Pending
Alkaline Phosphatase Pending
Vital Signs:
Vital Signs
Temp Pulse Resp BP Pulse Ox
98.1 F 76 20 135/64 98
10/19/24 09:00 10/19/24 09:00 10/19/24 09:00 10/19/24 09:00 10/19/24 09:00
Review of Systems
-
History Source: Patient
Constitutional: Reports Fatigue; Denies Fever or Chills
EENT: Reports Other (Dysphagia); Denies Mouth Pain, Mouth Swelling, Runny Nose or Blurry Vision
Respiratory: Reports No Symptoms
Cardiac: Reports Chest Pain; Denies Diaphoresis, Palpitations, Syncope or Orthopnea
Abdomen/GI: Reports No Symptoms
Breast: Reports No Symptoms
Genitourinary: Reports No Symptoms
Musculoskeletal: Reports Edema and Muscle Weakness
Skin: Reports Sores
Neuro: Reports No Symptoms
Endocrine: Reports No Symptoms
Physical Exam
-
General: Pain and Appears Chronically Ill
HEENT: Normocephalic, Atraumatic, PERRLA, Nose Appears Normal and Ears Appear Normal
Respiratory: Rales and Decreased Breath Sounds; Negative Wheezes or Rhonchi
Cardiac: Regular Rhythm, S1/S2 and Murmur
Breast: Other (open wounds L inf. breast)
GI: Normal Bowel Sounds, Tender, Distended and No Hernias
Genito-urinary: Deferred by me
Musculoskeletal: No Clubbing, No Cyanosis, Edema, Left Upper Extrem, Edema, Right Lower Extrem and Edema, Left Lower Extrem
Skin: Warm, Dry, Ulcers, Decubitus Ulcers and IV Access / Catheter Site (R side tunneled dialysis cath. )
Neuro: Awake, Alert, Oriented and Sedated
[2024-10-19] MEDS: COREG PO ×2 (10:10→21:08)
--- NOTE | 2024-10-19 10:22 | WOUNDNOTE ---
W[facility] RN NOTE: Updated Dr. Maher and Resident Earl Christina concern regarding patient's R foot wounds and that patient would benefit having a Podiatry consult. Dr's aware that photo's are in the chart for review, will defer to them if Podiatry
consult necessary.
[2024-10-19 11:51] LABS: Glucose - Point of Care 119 mg/dl (70-99)
--- NOTE | 2024-10-19 12:00 | PTCARENOTE ---
Addendum entered by Keyona Faustin RN 10/19/24 16:15:
Pt having difficulty swallowing. Md made aware, speech consulted.
Original Note:
Pt complaining of chest pain/tightness and generalized fatigue. MD made aware. EKG obtained. BP 135/64, HR 76, 98% on 2L, 20 RR and 98.1F. MD made aware and saw pt @bedside. Echo and ultrasound of extremities ordered. HD treatment scheduled for
today. Pt removed from O2, sating >95%. Pt able to make needs known, will continue to monitor.
[2024-10-19] MEDS: RETACRIT 4000 UNITS IV (13:09)
[2024-10-19] MEDS: NOVOLOG FLEXPEN SC ×3 (13:18→17:53)
[2024-10-19 13:21] LABS: Hematocrit 34.4 % (37.0-47.0); Hemoglobin 10.4 g/dL (12.0-16.0); Mean Corp Hgb Conc. 30.2 g/dL (33.0-37.0); Mean Corpuscular Hgb 26.3 pg (27.0-31.0); Mean Corpuscular Volume 87.1 fL (81.0-99.0); Mean Platelet Volume 9.2 fL (7.4-10.4); Platelet Count 292 10^3/uL (130-400); Red Blood Cell Count 3.95 10^6/uL (4.20-5.40); Red Cell Dist. Width 22.1 % (11.5-14.5); White Blood Cell Count 9.9 10^3/uL (4.8-10.8)
[2024-10-19 13:27] LABS: ALT (SGPT) 19 U/L (0-35); AST (SGOT) 31 U/L (14-36); Albumin 2.9 g/dl (3.5-5.0); Alkaline Phosphatase 490 U/L (38-126); Blood Urea Nitrogen 22 mg/dl (7-17); Carbon Dioxide 28 mmol/L (22-30); Chloride 101 mmol/L (98-107); Direct Bilirubin 1.3 mg/dl (0.0-0.4); Estimated Creatinine Clearance 22 ml/min; Glucose 117 mg/dl (70-99); Potassium 5.7 mmol/L (3.5-5.1); Sodium 137 mmol/L (135-145); Total Protein 6.8 g/dl (6.3-8.2)
[2024-10-19 13:28] LABS: Vancomycin Random 11.8 ug/ml
[2024-10-19 13:51] LABS: Troponin I 0.107 ng/ml
[2024-10-19 13:55] LABS: TSH Reflex To Free T4 5.94 uIU/ml (0.47-4.68)
[2024-10-19 14:21] LABS: Free T4 1.45 ng/dl (0.78-2.19)
--- NOTE | 2024-10-19 14:45 | W.PN.NEPH.HD ---
Assessment
-
Seen on dialysis tolerating treatment ultrafiltration 3 L ordered
Progress Note - Hemodialysis
-
Date of Service: October 19, 2024
Duration: 30 minutes and 3 hours
Potassium Bath: 3
Calcium Bath: 2.5
Opti-Dialyzer: 160
Ultrafiltration: Other (2.5 kg as hemodynamically)
Blood Flow: 400
Dialysate Flow: 600
Heparin: 1000 x 1
EPO: Yes
--- NOTE | 2024-10-19 14:57 | CON.CAR ---
Addendum entered and electronically signed by Paco Richmond MD 10/19/24 17:06:
I saw and examined the patient.
The [employer]'s note was reviewed and I agree with the note.
Comment:
49-year-old female with ESRD on hemodialysis, insulin-dependent diabetes, stroke, hypertension, hyperlipidemia, mixed valvular disease who presents for lethargy/weakness. She then reported chest tightness which she says has been going on for
several months. Cardiology was consulted for elevated troponin (0.043 -> 0.154 -> 0.163 -> 0.107). Physical exam reveals chronically ill-appearing woman, older than stated age, regular rate/rhythm, harsh systolic murmur, chronic bilateral lower
extremity edema, crackles at the lung bases. Of note her troponin was 0.02 in August 2024. ECG reveals sinus rhythm with PACs and nonspecific ST�T wave changes, unchanged from prior. Echo 12/07/23: Left ventricle is small in size. Hyperdynamic
left ventricular systolic function. Stage II DD. Dense MAC. Mild to moderate mitral stenosis (calcific in nature with the dense MAC. The anterior MV leaflet moves normally). Mild mitral regurgitation. Thickened aortic valve with restricted leaflet
motion. Moderate , AR, PASP 60-65 mmHg.
Her chest pressure with elevated troponin could be due to nonischemic myocardial injury in the setting of ESRD, however she had normal troponins as recently as August and there is no obvious increased demand on the heart. Thus, we should work
this up further. We will start with an echocardiogram to evaluate her valves. If this is unchanged from prior, we will proceed with an inpatient stress test on Thursday. She will need a pharmacologic nuclear stress test due to inability to
exercise. We will continue to follow along with you.
Original Note:
Consultation
Consultation Request
Date/Time Consultation Requested: 10/19/24 6925
Date/Time Consultation Performed: 10/19/24 7345
Requesting Provider: Dr. Christina
Performing Provider: Latonia MUNGUIA for Dr. Richmond
Reason for Consultation: abnormal troponin, chest discomfort
Medical History
-
Chief Complaint: weakness, lethargy
History of Present Illness:
49 y/o female with ESRD on HD, DM on insulin, prior CVA, hypertension, dyslipidemia, mild to moderate MS, moderate and AR, HFpEF, Guillain [place] syndrome, reports surgery on aortic valve when 5 years old- details unknown- last admit [facility] records
requested and they reported they had no records for this, hx right foot osteo, who is here for weakness and lethargy. We are consulted for chest discomfort. She tells me she has had this discomfort constantly for months and it feels like a pressure
around her ribcage. Nothing makes it better or worse. EKG stable. Trop up to 0.163 (in setting of ESRD). She is getting HD currently and in no distress at the time of my assessment.
Past Medical History
Past Medical History: CVA, Hypercholesterolemia, IDDM, Renal Failure, Valvular Disease and Other (as above)
Social History
Tobacco: Former Smoker
Living: With Family
Family History
Family History: Other (per chart, mother suddenly age 65 presumed ID)
Allergies / Home Medications
Allergy/AdvReac Type Severity Reaction Status Date / Time
latex Allergy Hives Verified 07/04/24 11:33
�Medication �Instructions �Recorded �Confirmed �Type
aspirin 81 mg tablet,delayed 81 mg PO DAILY Blood Clot 05/04/23 10/18/24 Rx
release Prevention/Tx #30 tabs
Lactobac no.2-Bifidobac no.1-S. 1 cap PO DAILY probiotic 02/15/24 10/18/24 History
thermo 112.5 billion cell capsule
(Visbiome)
ergocalciferol (vitamin D2) 1,250 1,250 mcg PO HANSON Supplement 02/15/24 10/18/24 History
mcg (50,000 unit) capsule
acetaminophen 325 mg tablet 650 mg PO Q6HPRN PRN mild pain 08/10/24 10/18/24 History
(Tylenol)
insulin aspart U-100 100 unit/mL 1 sliding scale dose SC TIDPRN PRN 08/10/24 10/18/24 History
(3 mL) subcutaneous pen (Novolog high blood sugar
FlexPen U-100 Insulin aspart)
loperamide 2 mg tablet 2 mg PO DAILYPRN PRN diarrhea 08/10/24 10/18/24 History
atorvastatin 40 mg tablet 80 mg (2 x 40 mg) PO QPM High 08/18/24 10/18/24 Rx
Cholesterol #30 tabs
carvedilol 3.125 mg tablet (Coreg) 3.125 mg PO BID Blood Pressure #60 08/18/24 10/18/24 Rx
tabs
clopidogrel 75 mg tablet 75 mg PO DAILY Blood clot 08/18/24 10/18/24 Rx
prevention/tx #30 tabs
insulin aspart U-100 100 unit/mL 2 unit (0.02 mL) SC AC #5 ea 08/18/24 10/18/24 Rx
(3 mL) subcutaneous pen (Novolog
FlexPen U-100 Insulin aspart)
insulin glargine 100 unit/mL (3 3 unit (0.03 mL) SC HS #5 ea 08/18/24 10/18/24 Rx
mL) subcutaneous pen (Lantus
Solostar U-100 Insulin)
bumetanide 2 mg tablet 2 mg PO DIRECTED Fluid 10/18/24 10/18/24 History
Retention/Swelling
Review of Systems
-
History Source: Patient and Other (and chart)
Constitutional: Other (weakness, lethargy)
Cardiac: Chest Pain (constant discomfort as described)
Musculoskeletal: Edema (LE edema)
Physical Exam
Vital Signs
Temp Pulse Resp BP Pulse Ox
98.0 F 71 17 108/46 94
10/19/24 11:05 10/19/24 11:05 10/19/24 11:05 10/19/24 11:05 10/19/24 11:05
Lab Results
10/19/24 12:50
10/19/24 12:50
Troponin I 0.107 ng/ml H* 10/19/24 12:50
Physical Exam
General: Well Developed, Well Nourished and No Apparent Distress
HEENT: Normocephalic and Anicteric
Respiratory: Clear and Non Labored Respirations
Cardiac: Regular Rhythm and Murmur (III/ systolic murmur)
Musculoskeletal: Edema (mild BLE edema)
Skin: Warm
Neuro: Awake and Alert
Psych: Calm
Impression / Plan
-
ESRD:
-getting HD, nephrology following
Chest discomfort, abnormal troponin:
-suspect acute, non-ischemic myocardial injury in setting of ESRD
-chest discomfort is atypical in that it is constant for months.
-however, she has multiple risk factors for CAD. Will check echo. Depending on those results, can determine ischemic eval such as stress test.
Chronic HFpEF:
-volume management with HD
Valvular heart disease:
-Echo 12/07/23: Left ventricle is small in size. Hyperdynamic left ventricular systolic function. Stage II DD. Dense MAC. Mild to moderate mitral stenosis (calcific in nature with the dense MAC. The anterior MV leaflet moves normally). Mild mitral
regurgitation. Thickened aortic valve with restricted leaflet motion. Moderate , AR, PASP 60-65 mmHg.
-update echo
-hx aortic valve surgery at age 5? No records available as noted per [facility].
Data Reviewed
-
EKG: Tracing Personally Visualized and interpreted (SR with PAC's, NS T abnormality- no acute change from previous)
Radiology: Report Reviewed by me (CXR: No acute disease of the chest. Cardiomegaly. Stable)
Medical Tests (Nuc Med, Echo etc): Report Reviewed by me (echo as noted)
Labs: Labs Reviewed by me
[2024-10-19 16:47] LABS: Glucose - Point of Care 90 mg/dl (70-99)
--- NOTE | 2024-10-19 17:31 | W.CS.POD ---
Consult Summary - Podiatry
-
Patient known to me very well, is a 49 yo female with PMH significant for HTN, DM-II, multiple prior CVAs and valvular heart disease who presents to ED with fatigue, weakness . She has first Rt5th toe amputation in 12/2023 and eventually had non
healing and had Rt 5th metatarsal resection and developed new ulcers on Rt dorsum foot and also recently Rt heel large blister, Patient also had multiple vascular interventions, Due to her small vessel disease , her wounds are healing very slowly
and patient does not want to loose her foot
She is in no acute distress, no chest pain, no SOB, WBC count WNL
Reviewed PMH, meds and allergies
Rt foot diminished pedal pulses
Exam : Rt foot mild edema, Rt lateral foot with dry, healing ulceration.
Rt dorsum foot with large ulceration with fibrotic base and exposed tendons, minimal purulence noted, no foul odor. No signs of any crepitus felt in the Rt foot, no signs of any deep abscess felt.
Rt heel with intact deep tissue bruise /blister, no local erythema no SOI
WBC count WNL.
A/P: Rt foot multiple Infected diabetic foot ulcers
Diabetic small vessel disease
Plan ; Cont IV abx.
Will cont with Adaptic and dry gauze dressings to Rt foot,
Heel relief boots to Rt foot
Will request vascular consult
Ordered xray Rt foot
d/w patient about possible surgical debridement Rt foot, no guarantees given to save the foot. Discussed reinfection, non haling, osteomyelitis etc
Podiatry will follow
[2024-10-19] MEDS: SANTYL OINTMENT TOPICAL (17:53)
[2024-10-19] MEDS: LIPITOR PO (17:54)
[2024-10-19] MEDS: NOVOLOG FLEXPEN 2 UNITS SC (18:04)
[2024-10-19 21:32] LABS: Glucose - Point of Care 85 mg/dl (70-99)
[2024-10-19] MEDS: LANTUS SC (21:45)
[2024-10-20] VITALS (7 sets, daily range): BP systolic 119–172; BP diastolic 59–72; PULSE 86; O2SAT 100; BMI 33.5
--- NOTE | 2024-10-20 02:52 | PTCARENOTE ---
Nurse attended to patient's call ambriz where patient stated 'this room is making me hot and I can't breathe. Nurse offered getting a fan since thermostat was already on low. Upon retrieving fan, pt refused stating 'I don't want to get pneumonia, I
don't want air blowing on me'. Nurse offered to check patient's BS, patient refused. Nurse offered to remove patient's blanket, patient refused. Patient stated 'I have not been cleaned up'. Nurse reminded patient that she was in the room earlier and
encouraged her to call for assistance when needed and and hygiene care was offered at that time. This nurse offering hygiene care now again, patient refuse. HD patient on O2 @2l showed no s/s of respiratory distress. Patient is refusing any
assessment or treatment at this time, repeatedly rolling her eyes throughout education stating ' I just want to rest'. Will continue plan of care.
--- NOTE | 2024-10-20 03:09 | PTCARENOTE ---
Patient is now on bed ferguson, was clean and dry when being assisted on to bed ferguson.
[2024-10-20] MEDS: COREG PO ×3 (08:00→22:00)
[2024-10-20 08:10] LABS: Glucose - Point of Care 88 mg/dl (70-99)
--- NOTE | 2024-10-20 09:16 | W.PN.CD ---
Today's Communication / Plan
-
Plan for echocardiogram today. Further recommendations based on results
Volume control with HD. Patient with significant edema.
Generalized weakness . muscle aches. Check CPK
Impression / Plan
-
ESRD:
-getting HD, nephrology following
- Patient with significant edema on exam. Volume control with HD
Lethargy/weakness prior to presenting complaint. COVID and flu exact etiology unclear may be multifactorial
-Sounds as if she has had some generalized weakness she says she has had weakness ever since her Guillain-Song�.
- Also has some muscle aches. Will check CPK.
- Unclear patient's history is regarding statin use could consider holding to see if any impact on symptoms.
Chest discomfort, abnormal troponin:
-suspect acute, non-ischemic myocardial injury in setting of ESRD
-chest discomfort is atypical in that it is constant for months.
-however, she has multiple risk factors for CAD. Will check echo.
- Echocardiogram. If echo shows normal left ventricular function then would plan for Lexiscan nuclear perfusion stress test
Chronic HFpEF:
- Bilateral lower extremity edema up to the thighs.
-volume management with HD
Valvular heart disease:
-Echo 12/07/23: Left ventricle is small in size. Hyperdynamic left ventricular systolic function. Stage II DD. Dense MAC. Mild to moderate mitral stenosis (calcific in nature with the dense MAC. The anterior MV leaflet moves normally). Mild mitral
regurgitation. Thickened aortic valve with restricted leaflet motion. Moderate , AR, PASP 60-65 mmHg.
- echo 10/20/2024
-hx aortic valve surgery at age 5? No records available as noted per [facility].
Physical Exam
Vital Signs/Labs
Vital Signs
Temp Pulse Resp BP Pulse Ox
99.1 F 79 17 151/62 99
10/20/24 07:05 10/20/24 07:05 10/20/24 07:05 10/20/24 07:05 10/20/24 07:05
10/19/24 10/20/24 10/21/24
06:59 06:59 06:59
Actual Weight 87.77 kg 85.786 kg
Magnesium 2.0 mg/dl (1.6-2.3) 10/19/24 12:50
Free T4 1.45 ng/dl (0.78-2.19) 10/19/24 12:50
LAB Results
10/18/24 10/18/24 10/18/24
10:09 18:20 23:52
Troponin I 0.043 H* 0.154 H* 0.163 H*
10/19/24 10/19/24 10/19/24
12:50 14:15 20:15
Troponin I 0.107 H* Cancelled Cancelled
Physical Exam
Constitutional: No acute distress
Cardiovascular: Rhythm & rate is regular and Systolic murmur present
Respiratory: Wheeze Absent and Rhonchi Absent
GI: Soft and Non tender
Neuro/Psych: Alert
Data Reviewed
-
Date of Service: October 20, 2024
Medical Decision Making: Reviewed Test Results
Echo: Report Reviewed by me
X-Ray/CT/US/MRI/NUC/PET: Report Reviewed by me
Medical Tests (PFT, Pathology etc): Report Reviewed by me
Labs: Labs Reviewed by me
[2024-10-20] MEDS: SANTYL OINTMENT 1 APPLIC TOPICAL (10:21)
[2024-10-20] MEDS: ASPIR LOW (ENTERIC COATED) 81 MG PO (10:21)
[2024-10-20] MEDS: VISBIOME 1 CAP PO (10:22)
[2024-10-20] MEDS: PLAVIX 75 MG PO (10:22)
[2024-10-20] MEDS: HYDROPHOR 1 APPLIC TOPICAL (10:23)
[2024-10-20] MEDS: HEPARIN SC ×2 (10:24→22:01)
[2024-10-20] MEDS: NOVOLOG FLEXPEN 2 UNITS SC (10:24)
[2024-10-20 10:49] LABS: Hematocrit 33.4 % (37.0-47.0); Hemoglobin 10.9 g/dL (12.0-16.0); Mean Corp Hgb Conc. 32.6 g/dL (33.0-37.0); Mean Corpuscular Hgb 26.8 pg (27.0-31.0); Mean Corpuscular Volume 82.3 fL (81.0-99.0); Mean Platelet Volume 9.3 fL (7.4-10.4); Platelet Count 250 10^3/uL (130-400); Red Blood Cell Count 4.06 10^6/uL (4.20-5.40); Red Cell Dist. Width 21.3 % (11.5-14.5)
[2024-10-20 11:06] LABS: Blood Urea Nitrogen 16 mg/dl (7-17); Calcium 8.9 mg/dl (8.4-10.2); Carbon Dioxide 25 mmol/L (22-30); Chloride 99 mmol/L (98-107); Estimated Creatinine Clearance 27 ml/min; Glucose 99 mg/dl (70-99); Potassium 4.9 mmol/L (3.5-5.1); Sodium 135 mmol/L (135-145); eGFR 21.94
[2024-10-20 11:26] LABS: Creatine Phosphokinase 24 U/L (30-135)
--- NOTE | 2024-10-20 11:35 | W.PN.NEPH.PH ---
Today's Communication / Plan
-
Dialysis tomorrow
Assessment/Plan
-
48-year-old female past medical history of right diabetic foot infection status post fifth toe amputation, peripheral arterial disease, ESRD on hemodialysis Thursday [facility] [address] [place] [address]
Impression:
ESRD
Thursday
Hyperkalemia
recent diabetic foot infection of right lateral foot possible osteomyelitis status post angiogram with stent placement on 07/08/2024
History of right diabetic foot infection status post fifth toe amputation on 12/06 and revision fourth toe amputation on 12/13
Peripheral arterial disease status post diagnostic arteriogram, intravascular lithotripsy of the posterior tibial artery and proximal SFA, balloon angioplasty and nitroglycerin injection of posterior tibial artery on 12/21/23
Chronic transaminitis
Type 1 diabetes
ESRD on hemodialysis Thursday and Thursday (stopped two months prior)
Chronic HFpEF
chronic anemia
Moderate aortic stenosis/aortic regurgitation
Mild to moderate mitral stenosis
Paroxysmal SVT
Iron deficiency anemia
History of CVA
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
PLan:
Volume status improved with dialysis still volume overload/down 9 pounds from admission
Continue with diuretics Bumex as she is nonoliguric
Plan for dialysis tomorrow
Echo pending
Podiatry consult noted for possible debridement vascular consult
-
-
Date of Service: October 20, 2024
CC / HPI / ROS
-
Chief Complaint:
Presents with
Confusion altered mental status difficulty hearing
History of Present Illness:
ESRD Thursday volume overloaded chronic foot infection
Review of Systems:
No chest pain improved shortness of breath
No nausea or vomiting
Labs
-
Labs:
WBC 9.0 10^3/uL (4.8-10.8) 10/20/24 10:38
RBC 4.06 10^6/uL (4.20-5.40) L 10/20/24 10:38
Hgb 10.9 g/dL (12.0-16.0) L 10/20/24 10:38
Hct 33.4 % (37.0-47.0) L 10/20/24 10:38
Plt Count 250 10^3/uL (130-400) 10/20/24 10:38
Sodium 135 mmol/L (135-145) 10/20/24 10:38
Potassium 4.9 mmol/L (3.5-5.1) 10/20/24 10:38
Chloride 99 mmol/L (98-107) 10/20/24 10:38
Carbon Dioxide 25 mmol/L (22-30) 10/20/24 10:38
BUN 16 mg/dl (7-17) 10/20/24 10:38
Creatinine 2.6 mg/dL (0.6-1.0) H 10/20/24 10:38
eGFR 21.94 10/20/24 10:38
Glucose 99 mg/dl (70-99) 10/20/24 10:38
Calcium 8.9 mg/dl (8.4-10.2) 10/20/24 10:38
Albumin 2.9 g/dl (3.5-5.0) L 10/19/24 12:50
Physical Exam
-
Vital Signs:
Vital Signs
Temp Pulse Resp BP Pulse Ox
97.8 F 84 17 172/72 98
10/20/24 11:05 10/20/24 11:05 10/20/24 11:05 10/20/24 11:05 10/20/24 11:05
Cardiovascular:: Regular rate and rhythm
Respiratory:: Bilateral: Coarse
Lung Excursion:: Normal
Abdomen:: Nontender and Soft
Extremity Edema:: +2: Bilateral:
[place] Catheter: No
--- NOTE | 2024-10-20 11:48 | PTOTSP ---
Dysphagia Evaluation
Patient reported globus sensation without/with PO and sensation of stasis (high in neck) with liquids and solids, limiting intake of soft solids (i.e., Cheerios). Full clinical swallow evaluation limited today. Consider objective assessment of
swallowing via video swallow study. Patient aware of dysphagia and able to choose foods she could tolerate. Conside continued diet until video swallow study.
Patient also c/o new onset of dysphonia. Continue medical work up for etiology of acute dysphagia/dysphonia.
Recommend:
1. Regular, Thin
2. Medications: as best tolerated
3. Strategies: upright to 90 degrees, small sips/bites, slow rate, pick smooth easy to swallow foods and stop if sensation of stasis does not resolve
4. Oral care 3x daily
5. Video swallow study
[2024-10-20 11:49] LABS: Glucose - Point of Care 106 mg/dl (70-99)
--- NOTE | 2024-10-20 11:55 | W.PN.HOSP.TC ---
Addendum entered and electronically signed by Klever Maher MD 10/20/24 22:23:
Attending Addendum-
I saw and evaluated the patient. I reviewed the resident�s note and agree with findings and plan as documented in the resident�s note. Sub: Answering questions appropriately. continues to complains of substernal CP this am. No associated sx non
radiating. Full 12 point ROS reviewed and negative except as documented Exam: Vitals reviewed in chart GEN-NAD heart RRR SM RUSB LUSB apex lungs crackles at bases abd soft ND ND pos BS LE 2+ edema b/l RLE in padded boot pulses faint but present
right foot wrapped
Plan:
# Atypical CP possible NIMI
- h/o CAD/PAD
- trend trops- peaked
- c/s cards input appreciated for nuc med stress in am
- check ECHO- Hyperdynamic left ventricular systolic function. LVEF 75%.
elevated RV volume/pressure overload.
Moderate aortic stenosis
Moderate aortic regurgitation.
Mild tricuspid regurgitation
Compared to prior echocardiogram in December 2023, RV function is worse on today's
study.
-check CT chest r/o PE
# HFpEF
- not in AE
- cont Coreg Bumex
- strict I and O fluid restrict daily weights
# ESRD
-non oliguric per patient
-HD M,W,F
-ctm
# Hyperkalemia- resolved repeat BMP in am
# Anemia of chronic disease- Continue to monitor
# h/o right foot osteomyelitis/skin and soft tissue infection/gangrene 07/08/24- completed 6 weeks of antibiotics
-large right foot dorsal ulcer-POA - worsening
-right lE wrapped
-wound care
-c/s pods- rec BKA - signed off
-c/s vasc surg- rec Rt BKA
-patient to think about it
#CAD/CABG
- cont Aspirin coreg atorvastatin
-cards c/s appreciated
#PAD
- h/o multiple interventions including right foot toe amp and stent 07/08/24
- Aspirin Plavix continued
- vasc c/s - rec Rt BKA
#DM 1
- uncontrolled
- Sliding scale
- Odt5w-7.0
- CHO diet
- Lantus/novolog q ac continued
#History of multiple strokes
#History of Guillain-Song� syndrome
- with chronic left lower extremity weakness.
Paroxysmal SVT
Chronic hearing loss
one eye blindness
DVT ppx: SC Heparin
Code: Full
Time spent coordinating care, review of plan of care with resident, personally reviewed records in EMR, med rec, consults, notes, labs, radiology, d/w nursing pods vasc� 55 mins
Original Note:
Today's Communication/Plan
-
Pending vascular consult
Possible nuclear stress test Thursday
Appreciate integration of care teams for this patient
Assessment / Plan
Assessment / Plan
49 year old female presenting with extreme fatigue s/p Dialysis
Revisited code status with the patient multiple times, for now she wishes to remain full code. Has no POA.
#Ischemic vs. Nonischemic Myocardial Injury
#Elevated troponins
- chest pain and pressure, troponinemia, ECG showing sinus rhythm with PACs
- trops peaked
- Cardiology following; appreciate recs.
- Echo worsening RV function compared to December 2023
- Possible nuclear stress test on Thursday
#Acute Exacerbation of HFpEF
- Last Echo 12/2023 showing EF 65-70%, multivalvular disease, elevated PASP 60-65mmHg and Stage II diastolic dysfunction
- repeat Echo showing 75%EF, flattening of septum consistent w/ elevated RV volume, moderate , Mod. AR, Mod. TR. PASP decreased to 30-35mmHg. RV function is worse on today's echo when compared to prior 12/2023.
- clinical signs of acute on chronic volume overload
- was on 2L NC, intermittently requiring, more so at night
- c/w Coreg, Bumex
#Acute on Chronic Extreme Fatigue
- patient is ESRD on dialysis w/ heart failure, suspect mostly component of nutritional deficiency vs. worsening multiple chronic diseases
- Will monitor for improvement after dialysis
- CK low
#Hyperkalemia (resolved)
- 6.1 on admission, given calcium gluconate, decreased to 4.9
- will c/t monitor
#ESRD (on dialysis MWF)
- R sided tunnelled dialysis cath. last received 10/18/2024
- Is on Bumex POA, patient states she makes urine, has not made more than few drops of urine on a pad per nursing
- nephro following; appreciate recs
- c/w dialysis per nephro w/ extra fluid removal
#R Dorsal Foot Wound
#H/o R metatarsal amputation
#H/o osteomyelitis
- open wound on dorsum of R foot
- known to Dr. Casey, seen and will discuss possible surgical debridement
- wound care following
- Vascular surgery consulted
#Multiple acute on chronic non-healing ulcers of various stages
- wound care following
- non-toxic at this time
- c/w dressings and ointment
#Anemia, likely secondary to chronic disease and ESRD
- hgb at baseline, no signs of active bleeding
- given one dose EPO
- transfuse to keep hgb >7
#IDDM Type II
- h/o of poorly controlled Type II DM, prior A2Cs seem to be around 9-11%
- repeat A1C% this admission 9.0%
- c/w 3U long acting QHS and 2U AC
- glucose checks have been <200 during this admission
- c/w statin
CHRONIC STABLE
#h/o CVA - c/w aspirin/plavix
#h/o Paroxysmal SVT
#H/o Guillain-[place] syndrome
#chronic hearing loss, secondary to diabetic neuropathy
Regular Diet
DVT Ppx: Heparin SC
Code Status: Full Code
Anticipated Discharge: 24 - 48 hours
Subjective/Interval History
-
Date of Service: October 20, 2024
C/o full body aches, pain in the back/tightness in the back/abdomen. No new fevers, chills, n/v/d. Also complaining of wet cough productive of thick yellow sputum.
Objective Data
-
Labs:
Laboratory Results
10/20/24
10:38
WBC 9.0
Hgb 10.9 L
Hct 33.4 L
Plt Count 250
Sodium 135
Potassium 4.9
Chloride 99
Carbon Dioxide 25
BUN 16
Creatinine 2.6 H
Glucose 99
Calcium 8.9
Vital Signs:
Vital Signs
Temp Pulse Resp BP Pulse Ox
97.8 F 84 17 172/72 98
10/20/24 11:05 10/20/24 11:05 10/20/24 11:05 10/20/24 11:05 10/20/24 11:05
I&O
10/19/24 10/20/24 10/21/24
06:59 06:59 06:59
Intake Total 960 / 960
Balance 960 / 960
Review of Systems
-
History Source: Patient
Constitutional: Reports Fatigue; Denies Night Sweats or Chills
EENT: Reports Runny Nose and Other (Wet cough)
Respiratory: Reports Cough; Denies Trouble Breathing, Wheezing or Pleurisy
Cardiac: Reports Chest Pain; Denies Diaphoresis, Palpitations or Syncope
Abdomen/GI: Reports Abdominal Pain; Denies Nausea, Vomiting, Diarrhea or Constipated
Breast: Reports No Symptoms
Genitourinary: Reports No Symptoms
Musculoskeletal: Reports Muscle Pain, Muscle Stiffness and Muscle Weakness
Skin: Reports Sores
Neuro: Reports No Symptoms
Endocrine: Reports No Symptoms
Hematologic / Lymphatic: Reports No Symptoms
Physical Exam
-
General: No Apparent Distress, Pain and Appears Chronically Ill
HEENT: Normocephalic, Atraumatic, Anicteric, [place] Conjunctivae, PERRLA, Nose Appears Normal, Ears Appear Normal and Oxygen
Respiratory: Rales; Negative Wheezes
Cardiac: Regular Rhythm, S1/S2 and Murmur; Negative Calf Tenderness or Vazquez's Sign
Breast: Other (ulcer L inframammary, unchanged w/ dressing)
GI: Normal Bowel Sounds, Tender and Distended
Genito-urinary: No Costovertebral Tender
Musculoskeletal: No Clubbing, No Cyanosis, Edema, Left Upper Extrem, Edema, Right Lower Extrem and Edema, Left Lower Extrem
Skin: Warm, Ulcers, Lesions and IV Access / Catheter Site
Neuro: Awake, Alert and Oriented
Psych: Depressed
--- NOTE | 2024-10-20 12:16 | CON.VAS ---
Addendum entered and electronically signed by Memo Whitmore III, MD 10/20/24 17:01:
This patient was seen and examined in collaboration with NILDA Albright. I agree with the history and physical exam as well as the assessment and plan. I have the following additions:
Well-known to me
Prior endovascular interventions for poorly healing right foot wound and associated infections
Diabetes, poorly controlled
Kidney disease on hemodialysis
She has had progression of her right foot wound despite several attempts at revascularization
Discussed this case with Dr. Casey. My recommendation is for below the knee amputation. The technical aspects of this procedure were discussed with her in detail. The benefits and rationale for this approach were discussed with her in
detail. Operative risks were discussed with her in detail including but not limited to bleeding, infection, nonhealing, chronic pain and the need for additional procedures including [id number] conversion. The anticipated postoperative recovery
was discussed with her in detail, both inpatient and outpatient.
At this point she is not sure how she wants to proceed. We will [place] back with her over the next few days to finalize a plan.
Signed:
Memo Whitmore III, MD
Vascular Surgery
[facility] [place]
Original Note:
Consultation
Consultation Request
Performing Provider: Myranda
Reason for Consultation: Nonhealing wounds
Medical History
-
Chief Complaint: Nonhealing RLE wounds
History of Present Illness:
49 yo female with significant past medical history of diabetes type 2, CAD(CABG 1981), chronic kidney disease, CVA x2, hypertension, retinopathy, CHF, ESRD on HD and peripheral arterial disease who is known to our service for prior angiograms for
non-healing right foot wound presented to [place] ED for increased confusion and lethargy at home. Patient lives with her son. Vascular history listed below.
Since admission she is being treated for ischemic vs nonischemic WA, Acute CHF exacerbation, ESRD on HD, uncontrolled DM, and nonhealing wounds to the R foot. Vascular consult for PAD/nonhealing wound evaluation. Pt also follows with Dr Casey
for the foot wounds. Pt has had multiple debridements/digit amputations.
Pt seen at bedside with Dr Whitmore. Pt awake and alert. Foot was wrapped by Podiatry this am. Images of wounds in wound care notes.
Vascular Surgery:
12/21/23: Intravascular lithotripsy to diffuse right posterior tibial artery stenosis (3 mm x 80 mm E8 shockwave balloon). Intravascular lithotripsy to right above-knee popliteal artery stenosis (6 mm x 60 mm M5+ shockwave balloon). Intravascular
lithotripsy to right proximal superficial femoral artery stenosis (6 mm x 60 mm M5+ shockwave balloon). Diagnostic aortobiiliac arteriogram (CO2). Diagnostic right lower extremity arteriogram- Dr. Memo Whitmore III
02/18/24: Aortogram and pelvic angiogram, right lower extremity arteriogram with third order vessel catheterization of right peroneal artery via left common femoral artery puncture, balloon angioplasty of behind the knee popliteal artery with 4 mm
Bard Lutonix drug-coated balloon, balloon angioplasty of proximal/origin of superficial femoral artery with 5 mm Bard Lutonix drug-coated balloon, Left femoral angiogram- Dr. Law Lai
07/08/24: Balloon angioplasty and drug-eluting stent to right distal posterior tibial artery, Balloon angioplasty to right plantar artery, Balloon angioplasty of pedal arch, Retrograde balloon angioplasty of dorsalis pedis artery via pedal arch from
posterior tibial artery
Past Medical History
Past Medical History: Other (Right diabetic foot infection status post fifth toe amputation, peripheral arterial disease, ESRD on hemodialysis Thursday and Thursday, diastolic CHF, presumed type I diabetes, iron deficiency anemia, CVA, paroxysmal SVT,
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
Past Surgical History: Other (multiple podiatric digit amputations, see HPI for vascular surgical intervention history)
Social History
Drug: None
Family History
Family History: Reviewed & Not Pertinent
Allergies / Home Medications
Allergy/AdvReac Type Severity Reaction Status Date / Time
latex Allergy Hives Verified 07/04/24 11:33
�Medication �Instructions �Recorded �Confirmed �Type
aspirin 81 mg tablet,delayed 81 mg PO DAILY Blood Clot 05/04/23 10/18/24 Rx
release Prevention/Tx #30 tabs
Lactobac no.2-Bifidobac no.1-S. 1 cap PO DAILY probiotic 02/15/24 10/18/24 History
thermo 112.5 billion cell capsule
(Visbiome)
ergocalciferol (vitamin D2) 1,250 1,250 mcg PO HANSON Supplement 02/15/24 10/18/24 History
mcg (50,000 unit) capsule
acetaminophen 325 mg tablet 650 mg PO Q6HPRN PRN mild pain 08/10/24 10/18/24 History
(Tylenol)
insulin aspart U-100 100 unit/mL 1 sliding scale dose SC TIDPRN PRN 08/10/24 10/18/24 History
(3 mL) subcutaneous pen (Novolog high blood sugar
FlexPen U-100 Insulin aspart)
loperamide 2 mg tablet 2 mg PO DAILYPRN PRN diarrhea 08/10/24 10/18/24 History
atorvastatin 40 mg tablet 80 mg (2 x 40 mg) PO QPM High 08/18/24 10/18/24 Rx
Cholesterol #30 tabs
carvedilol 3.125 mg tablet (Coreg) 3.125 mg PO BID Blood Pressure #60 08/18/24 10/18/24 Rx
tabs
clopidogrel 75 mg tablet 75 mg PO DAILY Blood clot 08/18/24 10/18/24 Rx
prevention/tx #30 tabs
insulin aspart U-100 100 unit/mL 2 unit (0.02 mL) SC AC #5 ea 08/18/24 10/18/24 Rx
(3 mL) subcutaneous pen (Novolog
FlexPen U-100 Insulin aspart)
insulin glargine 100 unit/mL (3 3 unit (0.03 mL) SC HS #5 ea 08/18/24 10/18/24 Rx
mL) subcutaneous pen (Lantus
Solostar U-100 Insulin)
bumetanide 2 mg tablet 2 mg PO DIRECTED Fluid 10/18/24 10/18/24 History
Retention/Swelling
Review of Systems
-
History Source: Patient
Constitutional: Reports Weight Gain and Fatigue
EENT: Reports No Symptoms
Respiratory: Reports No Symptoms
Cardiac: Reports No Symptoms
Vascular: Denies Leg Pain / Claudication
Abdomen/GI: Reports No Symptoms
: Reports No Symptoms
Musculoskeletal: Reports Edema
Skin: Reports Other (chronic wounds)
Neurological: Reports No Symptoms
Physical Exam
Vital Signs
Temp Pulse Resp BP Pulse Ox
97.8 F 84 17 172/72 98
10/20/24 11:05 10/20/24 11:05 10/20/24 11:05 10/20/24 11:05 10/20/24 11:05
Lab Results
10/20/24 10:38
10/20/24 10:38
Troponin I Cancelled 10/19/24 20:15
Physical Exam
General: No Apparent Distress
HEENT: Normocephalic and Atraumatic
Respiratory: Non Labored Respirations
Cardiac: Negative JVD
GI: Soft and Non Tender
Musculoskeletal: Edema (BL LE)
Skin: Warm, Dry and Other (See wound care notes)
Neuro: Awake, Alert and Oriented
Psych: Calm
Pulses: Bilateral Dorsalis Pedis: Doppler (Nonpalpable) and Bilateral Posterior Tibial: Doppler (Nonpalpable)
Assessment / Plan
-
49 yo female with chronic nonhealing wounds to her RLE
s/p 4th/5th metatarsal amputations
Plan:
-No further endovascular options at this point, discussed BKA with pt at length. Pt needs time to consider decision. We will [place] back with her.
Data Reviewed
-
Labs: Labs Reviewed by me
--- NOTE | 2024-10-20 13:43 | CM ---
Patient seen at bedside. Patient reports she resides in an apartment, with an elevator, with her daughter, son, and three younger children. Patient reports she has had VN in the past, Patient has walker. Patient confirms PCP Dr. Daniel, pharmacy [facility] [employer] in [place], confirms prescription coverage. Previously, patient with HD at [facility];[address] [place] [address] starting on 08/22, Thursday, Thursday And Thursday at 11:00. Patient was using [facility] for transportation. Patient is
currently on O2 but does not have any O2 at home. Patient indicated that her current plan is to return home with prior HD set up. Patient with woundcare following. Patient is current with [facility]. CM will continue to follow for discharge planing needs.
Plan; return home with [facility] and HD with [facility] vs SNF
--- NOTE | 2024-10-20 14:20 | PN.CDI ---
CDI
- -
CDI:
Physician Documentation Request
Admit Date: 10/18/24 13:36
Dear Doctor Gunnar/Resident,
Please review the following and provide your response in the progress notes.
Clinical Indicators:
Pt admitted with Acute on Chronic HFpEF/ Diabetic foot ulcer /ESRD
Documented per [facility] note 10/18, ' ... R heel with blistering and suspected stage 3 PI, macerated in center....'
Physician documentation of the type and location of wounds is required for compliant documentation. Based on the above clinical findings and your assessment, please provide the following in your progress note:
1. Location of the ulcer/wound, including laterality.
2. Type (etiology) of ulcer/wound:
- Pressure (decubitus) ulcer
- Non-pressure ulcer
- Other ( please specify)
Use of terms such as suspected, likely, concern for, or probable (associated with a specific diagnosis that is being evaluated, monitored, or treated as if it exists) are acceptable and can be coded in the inpatient setting, when documented at the
time of discharge.
Thank you,
Lissett Clark RN
CDI Specialist
[place] [facility]
Please use your independent medical judgment in providing your response.
*Source: National Pressure Ulcer Advisory Panel (NPUAP)
[2024-10-20 17:00] LABS: Glucose - Point of Care 110 mg/dl (70-99)
--- NOTE | 2024-10-20 17:11 | W.PN.POD ---
Today's Communication
Today's Communication
Podiatry will sign off and please contact if needed
Assessment / Plan
-
Rt foot multiple Infected diabetic foot ulcers
Diabetic small vessel disease
Plan ; Cont IV abx.
Will cont with Adaptic and dry gauze dressings to Rt foot,
Heel relief boots to Rt foot
Appreciate vascular consult, D/W Dr. Whitmore. no further vascular intervention, recommends BKA
d/w patient about worsening Rt foot with new wounds and necrotic areas of the heel, with end stage kidney disease and cardiac conditions , I have recommended with Rt BKA
Patient is agreeable for BKA
VAscular will be planning for BKA in next few days
Meantime will cont with dry gauze dressings to Rt foot daily once
Subjective
Chief Complaint
Rt foot worsening wounds
Subjective
Patient seen at bedside, no new complaints offered. No new changes to her Rt foot
Objective
Temp Pulse Resp BP Pulse Ox
97.5 F 86 18 165/62 99
10/20/24 15:00 10/20/24 15:00 10/20/24 15:00 10/20/24 15:00 10/20/24 15:38
10/20/24 10:38
10/20/24 10:38
Vital Signs and Lab results were reviewed.
Rt foot edematous
Rt dorsum foot ulcer with scant purulence and exposed tendons, No foul odor,
Rt heel wit necrotic blister, presence of purulence
Rt lateral foot with dry necrotic area noted
No crepitus felt tot Rt foot , no signs of abscess
[2024-10-20] MEDS: NOVOLOG FLEXPEN SC ×2 (17:18→18:08)
[2024-10-20 21:50] LABS: Glucose - Point of Care 130 mg/dl (70-99)
[2024-10-20] MEDS: LANTUS 0.03 UNITS SC (21:55)
[2024-10-21 03:00] VITALS: BP 146/72
[2024-10-21 06:00] VITALS: BMI 32.8
[2024-10-21 07:44] LABS: Glucose - Point of Care 104 mg/dl (70-99)
--- NOTE | 2024-10-21 07:45 | W.PN.CD ---
Today's Communication / Plan
-
HD first thing Thursday followed by [facility]
Will let eat today
Impression / Plan
-
ESRD:
-getting HD, nephrology following
- Patient with significant edema on exam. Volume control with HD
Lethargy/weakness prior to presenting complaint. COVID and flu exact etiology unclear may be multifactorial
-Sounds as if she has had some generalized weakness she says she has had weakness ever since her Guillain-Song�.
- Also has some muscle aches. CPK is low.
- statin being held
Chest discomfort, abnormal troponin:
-suspect acute, non-ischemic myocardial injury in setting of ESRD
-chest discomfort is atypical in that it is constant for months. She has a hard time differentiating it from abdominal pain.
-however, she has multiple risk factors for CAD and now possible surgery, needs further risk assessment
- Echocardiogram without regional wall motion abnormality.
-she cannot lie flat currently, will time Lexiscan with HD for Thursday.
Chronic HFpEF:
- Bilateral lower extremity edema up to the thighs.
-volume management with HD
Valvular heart disease:
-Echo 12/07/23: Left ventricle is small in size. Hyperdynamic left ventricular systolic function. Stage II DD. Dense MAC. Mild to moderate mitral stenosis (calcific in nature with the dense MAC. The anterior MV leaflet moves normally). Mild mitral
regurgitation. Thickened aortic valve with restricted leaflet motion. Moderate , AR, PASP 60-65 mmHg.
- echo 10/20/2024 similar to above with improved pasp 30-35mmHg.
-hx aortic valve surgery at age 5? No records available as noted per [facility]. No prosthetic material in the aortic valve or root area on imaging
nonhealing wounds on Rt foot:
-Vascular recommending BKA
Sugjective:
she feel pain and tightness in the chest and abdomen. She has tired. She is scared about how she feels. She told in regard to BKA 'I will do what I have to do'.
Data:
TTE10/20/24 : Hyperdynamic left ventricular systolic function. LVEF 75%.
Likely elevated LV filling pressures.
Enlarged right ventricle with reduced systolic function. Septal flattening
consistent with elevated RV volume/pressure overload.
Moderate aortic stenosis (44/28 mmHg, 1.1 cm2 by continuity equation,
planimetry 1.45 cm2).
Moderate aortic regurgitation.
Mild tricuspid regurgitation. PASP 30-35 mmHg.
Physical Exam
Vital Signs/Labs
Vital Signs
Temp Pulse Resp BP Pulse Ox
99.3 F 82 18 146/72 98
10/21/24 03:00 10/21/24 03:00 10/21/24 03:00 10/21/24 03:00 10/21/24 03:00
10/20/24 10/21/24 10/22/24
06:59 06:59 06:59
Actual Weight 189 lb 2 oz 184 lb 14.4 oz
Magnesium 2.0 mg/dl (1.6-2.3) 10/19/24 12:50
Free T4 1.45 ng/dl (0.78-2.19) 10/19/24 12:50
LAB Results
10/18/24 10/18/24 10/18/24
10:09 18:20 23:52
Troponin I 0.043 H* 0.154 H* 0.163 H*
10/19/24 10/19/24 10/19/24
12:50 14:15 20:15
Troponin I 0.107 H* Cancelled Cancelled
Physical Exam
Constitutional: No acute distress
Cardiovascular: Rhythm & rate is regular, Pedal edema present and Systolic murmur present (crescendo decrescendo in the rusb)
Respiratory: Lungs clear to auscul. and Other (increased rr when lying flat)
Neuro/Psych: Alert
Data Reviewed
-
Date of Service: October 21, 2024
Medical Decision Making: Review of Case with other Provider (Dr Whitmore, Dr Kim and Dr Maher---needs stress, Dr Kim will assist in having HD thursday)
X-Ray/CT/US/MRI/NUC/PET: Image Personally Visualized and interpreted (CT without pe)
--- NOTE | 2024-10-21 07:50 | W.PN.HOSP.TC ---
Addendum entered and electronically signed by Klever Maher MD 10/21/24 20:26:
Attending Addendum-
I saw and evaluated the patient. I reviewed the resident�s note and agree with findings and plan as documented in the resident�s note. Sub: Asking same questions over and over. Unable to make definitive decision. Appears overwhelmed. continues to
complains of substernal CP this am. Full 12 point ROS reviewed and negative except as documented Exam: Vitals reviewed in chart GEN-NAD heart RRR SM RUSB LUSB apex lungs crackles at bases abd soft ND ND pos BS LE 2+ edema b/l RLE in padded boot
pulses faint but present right foot wrapped
Plan:
#CP with Elevated Trops
- h/o CAD/PAD
- trops- peaked
- c/s cards input appreciated for nuc med stress after HD on tuesday 10/24
- ECHO- Hyperdynamic left ventricular systolic function. LVEF 75%.
elevated RV volume/pressure overload.
Moderate aortic stenosis
Moderate aortic regurgitation.
Mild tricuspid regurgitation
Compared to prior echocardiogram in December 2023, RV function is worse on today's study.
- CT chest- PE ruled out
- cont to monitor nitro prn
# HFpEF
- volume overloaded
- HD with UF @ 3L M,W,F
- cont Coreg Bumex
- strict I and O fluid restrict daily weights
# ESRD
-oliguric
-HD M,W,F
-HD prior to nuc stress on thursday
# Hyperkalemia- resolved repeat BMP in am
# Anemia of chronic disease- Continue to monitor
# h/o right foot osteomyelitis/skin and soft tissue infection/gangrene 07/08/24- completed 6 weeks of antibiotics
-large right foot dorsal ulcer-POA - worsening
-right lE wrapped
-wound care
-pods- rec right BKA
-vasc surg- rec right BKA
-patient to think about it
-scheduled OR for Amy 4/22 tentatively
#CAD/CABG
- cont Aspirin coreg atorvastatin
- for nuc stress on 10/24
#PAD
- h/o multiple interventions including right foot toe amp and stent 07/08/24
- Aspirin Plavix continued
- vasc c/s - rec Rt BKA
#DM 1
- uncontrolled
- Sliding scale
- [id number]
- CHO diet
- Lantus/novolog q ac continued
#History of multiple strokes
#History of Guillain-Song� syndrome
- with chronic left lower extremity weakness.
Paroxysmal SVT
Chronic hearing loss
one eye blindness
DVT ppx: SC Heparin
Code: Full
Time spent coordinating care, review of plan of care with resident, personally reviewed records in EMR, med rec, consults, notes, labs, radiology, d/w nursing cards nephro vasc� 52 mins
Original Note:
Today's Communication/Plan
-
Dialysis today
Psych consult
Pending decision on BKA
Assessment / Plan
Assessment / Plan
49 year old female presenting with extreme fatigue s/p Dialysis
Revisited code status with the patient multiple times, for now she wishes to remain full code. Has no POA. has given permission to speak with eldest son, will attempt to call to update him on her status.
#Pica Disorder
- patient endorses a compulsion to eat matches. She states she has been doing so since she was young, and that during times of stress she may consume as many as 100 matches per day.
- Matches contain potassium chlorate, sulfur, glue, red phosphorus, ammonium phosphate and paraffin, all of which are at the very least nephrotoxic
- Psych consulted; nephro aware.
#Ischemic vs. Nonischemic Myocardial Injury
#Elevated troponins
- chest pain and pressure, troponinemia, ECG showing sinus rhythm with PACs
- trops peaked
- Cardiology following; appreciate recs.
- Echo this admission with worsening RV function compared to December 2023
- Possible nuclear stress test on Thursday
#Acute Exacerbation of HFpEF
- Last Echo 12/2023 showing EF 65-70%, multivalvular disease, elevated PASP 60-65mmHg and Stage II diastolic dysfunction
- repeat Echo showing 75%EF, flattening of septum consistent w/ elevated RV volume, moderate , Mod. AR, Mod. TR. PASP decreased to 30-35mmHg. RV function is worse on today's echo when compared to prior 12/2023.
- clinical signs of acute on chronic volume overload
- was on 2L NC, intermittently requiring, more so at night
- c/w Coreg, Bumex
- Dialysis today
#Acute on Chronic Extreme Fatigue
#Depression
- patient is ESRD on dialysis w/ heart failure, suspect mostly nutritional deficiency and chronic illness, however concern for concurrent depression
- Psych consulted
#ESRD (on dialysis MWF)
#Hyperkalemia
- R sided tunnelled dialysis cath. last received 10/18/2024
- Is on Bumex POA, patient states she makes urine
- nephro following; appreciate recs
- c/w dialysis per nephro w/ extra fluid removal
#R Dorsal Foot Wound
#H/o R metatarsal amputation
#H/o osteomyelitis
- open wound on dorsum of R foot
- Podiatry and Vascular -- recommending BKA, patient still to decide on course of action
#Multiple acute on chronic non-healing ulcers of various stages
#R heel with blistering and suspected stage 3 Pressure Injury
- wound care following
- non-toxic at this time
- c/w dressings and ointment
#Anemia, likely secondary to chronic disease and ESRD
- hgb at baseline, no signs of active bleeding
- given one dose EPO
- transfuse to keep hgb >7
#IDDM Type II
- h/o of poorly controlled Type II DM, prior A2Cs seem to be around 9-11%
- repeat A1C% this admission 9.0%
- c/w 3U long acting QHS and 2U AC
- glucose checks have been <200 during this admission
- c/w statin
CHRONIC STABLE
#h/o CVA - c/w aspirin/plavix
#h/o Paroxysmal SVT
#H/o Guillain-Pala syndrome
#chronic hearing loss, secondary to diabetic neuropathy
Regular Diet
DVT Ppx: Heparin SC
Code Status: Full Code
Anticipated Discharge: 24 - 48 hours
Subjective/Interval History
-
Date of Service: October 21, 2024
Feels similarly fatigued today with ongoing chest pressure. No fevers, chills, palpitations.
Objective Data
-
Labs:
Laboratory Results
10/21/24
06:00
WBC Pending
Hgb Pending
Hct Pending
Plt Count Pending
Sodium Pending
Potassium Pending
Chloride Pending
Carbon Dioxide Pending
BUN Pending
Creatinine Pending
Glucose Pending
Calcium Pending
Vital Signs:
Vital Signs
Temp Pulse Resp BP Pulse Ox
99.3 F 82 18 146/72 98
10/21/24 03:00 10/21/24 03:00 10/21/24 03:00 10/21/24 03:00 10/21/24 03:00
I&O
10/20/24 10/21/24 10/22/24
06:59 06:59 06:59
Intake Total 960 / 960 840 / 840 240 / 240
Balance 960 / 960 840 / 840 240 / 240
Review of Systems
-
History Source: Patient
Constitutional: Denies Fever, Night Sweats or Chills
EENT: Reports No Symptoms Reported
Respiratory: Reports No Symptoms
Cardiac: Reports Chest Pain; Denies Palpitations or Syncope
Abdomen/GI: Reports Abdominal Pain; Denies Nausea, Vomiting, Diarrhea or Constipated
Breast: Reports No Symptoms
Genitourinary: Reports No Symptoms
Musculoskeletal: Reports Edema and Arthralgias
Skin: Reports Sores
Neuro: Reports No Symptoms
Psych: Reports Depressed
Physical Exam
-
General: No Apparent Distress, Appears Chronically Ill and Obese
HEENT: Normocephalic, Atraumatic, Moist Mucous Membranes, Anicteric, [place] Conjunctivae, Nose Appears Normal and Ears Appear Normal
Respiratory: Clear to Auscultation; Negative Wheezes, Rales or Rhonchi
Cardiac: Regular Rhythm and S1/S2; Negative Murmur or Rub
Breast: Deferred by me
GI: Nondistended, Normal Bowel Sounds and Distended
Genito-urinary: Deferred by me
Musculoskeletal: No Clubbing, No Cyanosis, Edema, Right Lower Extrem and Edema, Left Lower Extrem
Skin: Warm, Dry, Ulcers and IV Access / Catheter Site
Neuro: Awake, Alert and Oriented
Psych: Depressed
[2024-10-21 07:54] VITALS: BP 152/90
[2024-10-21] MEDS: NOVOLOG FLEXPEN SC (08:17)
[2024-10-21] MEDS: COREG PO ×2 (08:18→21:48)
[2024-10-21] MEDS: HEPARIN SC (08:18)
[2024-10-21] MEDS: VISBIOME 1 CAP PO (09:15)
[2024-10-21] MEDS: PLAVIX 75 MG PO (09:15)
[2024-10-21] MEDS: ASPIR LOW (ENTERIC COATED) 81 MG PO (09:15)
[2024-10-21] MEDS: MUCINEX PO ×2 (10:54→21:49)
[2024-10-21 11:01] VITALS: BP 154/64
[2024-10-21 11:56] LABS: Glucose - Point of Care 100 mg/dl (70-99)
--- NOTE | 2024-10-21 12:16 | W.PN.UPDATE ---
Update Note
Progress Note Update
Psychiatric evaluation dictated.
Patient is faced with a difficult decision regarding as to whether to have bellow knee amputation. She has severe medical conditions in addition to DM particularly end stage renal failure and is on dialysis. She still has 3 children under 18, 10 yo
twins and 7yo and obviously feels responsibility towards them; at the same time she wonders if she should just let go and . She has no active suicidal thoughts or plan.
Denies previous psychiatric history; states she drank heavily after her mother dies in 2017 but no other drug use reported.
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 At time she would consume 2 boxes per day which contain 50 matches
each. She feel this addictive behavior could be responsible for her medical problems and interestingly enough consumption of large amounts of match tips can cause renal and hepatic problems.
I thing a trial of antidepressant could help but she is not interested. Psychotherapy could also help.
We will F/U.
[2024-10-21] MEDS: NOVOLOG FLEXPEN 2 UNITS SC ×2 (12:18→18:16)
[2024-10-21] MEDS: SANTYL OINTMENT 1 APPLIC TOPICAL (12:37)
[2024-10-21] MEDS: HYDROPHOR 1 APPLIC TOPICAL (12:38)
[2024-10-21] MEDS: TYLENOL 650 MG PO (12:55)
[2024-10-21 13:22] LABS: Hematocrit 34.4 % (37.0-47.0); Hemoglobin 10.6 g/dL (12.0-16.0); Mean Corp Hgb Conc. 30.8 g/dL (33.0-37.0); Mean Corpuscular Volume 84.3 fL (81.0-99.0); Platelet Count 269 10^3/uL (130-400); Red Blood Cell Count 4.08 10^6/uL (4.20-5.40); Red Cell Dist. Width 21.7 % (11.5-14.5); White Blood Cell Count 8.8 10^3/uL (4.8-10.8)
[2024-10-21 13:45] LABS: Blood Urea Nitrogen 21 mg/dl (7-17); Calcium 8.7 mg/dl (8.4-10.2); Carbon Dioxide 28 mmol/L (22-30); Chloride 98 mmol/L (98-107); Estimated Creatinine Clearance 23 ml/min; Glucose 154 mg/dl (70-99); Potassium 4.5 mmol/L (3.5-5.1); Sodium 136 mmol/L (135-145); eGFR 17.77
[2024-10-21] MEDS: RETACRIT 4000 UNITS IV (14:16)
--- NOTE | 2024-10-21 15:12 | W.PN.NEPH.HD ---
Assessment
-
pt seen during HD
vitals stable
UF as much she can tolerate
for stress test on Thursday post HD first shift
CVC functions fine
Progress Note - Hemodialysis
-
Date of Service: October 21, 2024
Duration: 30 minutes and 3 hours
Potassium Bath: 3
Calcium Bath: 2.5
Opti-Dialyzer: 160
Ultrafiltration: Other (2-2.5kg)
Blood Flow: 400
Dialysate Flow: 600
Heparin: no
EPO: 4000
[2024-10-21 15:34] VITALS: BP 133/57
--- NOTE | 2024-10-21 15:50 | W.PN.UPDATE ---
Update Note
Progress Note Update
Again reviewed with patient vascular surgical recommendation of below the knee amputation; reviewed indication, procedure, and recovery in detail. Offered to patient tentative OR plan for 10/25/24. Patient is still unsure of proceeding but agreeable
to being added to OR schedule in the interim.
[2024-10-21 16:32] LABS: Glucose - Point of Care 116 mg/dl (70-99)
--- NOTE | 2024-10-21 16:55 | PTCARENOTE ---
at 12:23, patient c/o whole body pain 510. notified [facility] resident and requested PRN Tylenol as patient takes outpatient. patient more comfortable at present. just finished hemodialysis. refused Mucinex,Coreg and Heparin SQ today
despite informing her of benefits vs risks. vss, will continue to monitor.
[2024-10-21 19:38] VITALS: BP 135/66
[2024-10-21 20:25] LABS: Glucose - Point of Care 125 mg/dl (70-99)
[2024-10-21] MEDS: LANTUS 0.03 UNITS SC (21:51)
[2024-10-21] MEDS: HEPARIN 5000 UNITS SC (21:51)
[2024-10-21 23:39] VITALS: BP 138/70
[2024-10-22 03:32] VITALS: BP 142/70
--- NOTE | 2024-10-22 03:46 | PTCARENOTE ---
PT declined Mucinex due to the fact that she 'had HD today'
[2024-10-22] MEDS: TYLENOL 650 MG PO ×2 (06:12→15:19)
[2024-10-22 07:36] VITALS: BP 134/74
[2024-10-22 07:46] LABS: % Basophils 1.1 % (0-2); % Eosinophils 2.4 % (0-6); % Immature Granulocytes 0.9 % (0-0.5); % Lymphocytes 17.8 % (20.5-51.1); % Monocytes 11.6 % (1.7-9.3); % Neutrophils 66.2 % (42.2-75.2); Absolute Basophils 0.1 10^3/uL (0-0.2); Absolute Eosinophils 0.3 10^3/uL (0-0.7); Absolute Immature Granulocytes 0.1 10^3/uL (0-0.05); Absolute Lymphocytes 1.9 10^3/uL (1.2-3.4); Absolute Monocytes 1.3 10^3/uL (0.1-0.6); Absolute Neutrophils 7.2 10^3/uL (1.4-6.5); Hematocrit 33.6 % (37.0-47.0); Hemoglobin 10.6 g/dL (12.0-16.0); Mean Corp Hgb Conc. 31.5 g/dL (33.0-37.0); Mean Corpuscular Hgb 26.5 pg (27.0-31.0); Mean Platelet Volume 9.5 fL (7.4-10.4); Nucleated Red Blood Cells % 0.2 %; Platelet Count 255 10^3/uL (130-400); Red Cell Dist. Width 21.2 % (11.5-14.5); White Blood Cell Count 10.8 10^3/uL (4.8-10.8)
[2024-10-22 07:52] LABS: Glucose - Point of Care 119 mg/dl (70-99)
[2024-10-22 08:07] LABS: ALT (SGPT) 14 U/L (0-35); AST (SGOT) 32 U/L (14-36); Albumin 3.1 g/dl (3.5-5.0); Alkaline Phosphatase 512 U/L (38-126); Blood Urea Nitrogen 13 mg/dl (7-17); Calcium 8.6 mg/dl (8.4-10.2); Carbon Dioxide 27 mmol/L (22-30); Chloride 100 mmol/L (98-107); Estimated Creatinine Clearance 28 ml/min; Glucose 119 mg/dl (70-99); Potassium 4.4 mmol/L (3.5-5.1); Sodium 137 mmol/L (135-145); Total Bilirubin 1.5 mg/dl (0.2-1.3); Total Protein 7.5 g/dl (6.3-8.2)
[2024-10-22] MEDS: PLAVIX 75 MG PO (08:37)
[2024-10-22] MEDS: ASPIR LOW (ENTERIC COATED) 81 MG PO (08:37)
[2024-10-22] MEDS: VISBIOME PO ×2 (08:37→12:32)
[2024-10-22] MEDS: MUCINEX 600 MG PO ×2 (08:37→21:58)
[2024-10-22] MEDS: COREG 3.125 MG PO ×2 (08:38→21:58)
[2024-10-22] MEDS: SANTYL OINTMENT 1 APPLIC TOPICAL (08:38)
[2024-10-22] MEDS: NOVOLOG FLEXPEN 2 UNITS SC ×3 (08:38→18:13)
[2024-10-22] MEDS: HEPARIN SC ×3 (08:39→21:58)
[2024-10-22] MEDS: HYDROPHOR 1 APPLIC TOPICAL (08:39)
[2024-10-22 11:06] VITALS: BP 159/71
[2024-10-22 11:42] LABS: Glucose - Point of Care 94 mg/dl (70-99)
[2024-10-22] MEDS: TESSALON PERLES 200 MG PO ×2 (12:29→18:22)
--- NOTE | 2024-10-22 13:39 | W.PN.HOSP.TC ---
Today's Communication/Plan
-
Continue DAPT, carvedilol, statin
Planning for stress test on Thursday after hemodialysis
Possible BKA this week if amenable
Assessment / Plan
Assessment / Plan
#Pica Disorder
- patient endorses a compulsion to eat matches. She states she has been doing so since she was young, and that during times of stress she may consume as many as 100 matches per day.
- Matches contain potassium chlorate, sulfur, glue, red phosphorus, ammonium phosphate and paraffin, all of which are at the very least nephrotoxic
- Psych consulted; nephro aware.
#Cough
- Patient complaining of cough with yellow mucus production as of morning 10/22
- No worsening oxygenation, SpO2 99%
- Offered chest x-ray though patient refused
- Ordered Tessalon Perles as needed
- Consider repeat viral panel
#Ischemic vs. Nonischemic Myocardial Injury
#Elevated troponins
- chest pain and pressure, troponinemia, ECG showing sinus rhythm with PACs
- trops peaked
- Cardiology following; appreciate recs.
- Echo this admission with worsening RV function compared to December 2023
- Planning for nuclear test stress on Thursday after HD
#Acute Exacerbation of HFpEF
- Last Echo 12/2023 showing EF 65-70%, multivalvular disease, elevated PASP 60-65mmHg and Stage II diastolic dysfunction; repeat echo with worsening RV pressure overload
- repeat Echo showing 75%EF, flattening of septum consistent w/ elevated RV volume, moderate , Mod. AR, Mod. TR. PASP decreased to 30-35mmHg.
- clinical signs of acute on chronic volume overload
- was on 2L NC, intermittently requiring, more so at night
- c/w Coreg, Bumex, HD M/W/F
#Acute on Chronic Extreme Fatigue
#Depression
- patient is ESRD on dialysis w/ heart failure, suspect mostly nutritional deficiency and chronic illness, however concern for concurrent depression
- Psych consulted
#ESRD (on dialysis MWF)
#Hyperkalemia
- Question if this is related to toxicity from eating burnt matched hips
- R sided tunnelled dialysis cath. last received 10/18/2024
- Is on Bumex POA, patient states she makes urine
- nephro following; appreciate recs
- c/w dialysis per nephro w/ extra fluid removal
#R Dorsal Foot Wound
#H/o R metatarsal amputation
#H/o osteomyelitis
- open wound on dorsum of R foot
- Podiatry and Vascular -- recommending BKA, patient still to decide on course of action
#Multiple acute on chronic non-healing ulcers of various stages
#R heel with blistering and suspected stage 3 Pressure Injury
- wound care following
- non-toxic at this time
- c/w dressings and ointment
#Anemia, likely secondary to chronic disease and ESRD
- hgb at baseline, no signs of active bleeding
- given one dose EPO
- transfuse to keep hgb >7
#IDDM Type II
- h/o of poorly controlled Type II DM, prior A2Cs seem to be around 9-11%
- repeat A1C% this admission 9.0%
- c/w 3U long acting QHS and 2U AC
- glucose checks have been <200 during this admission
- c/w statin
CHRONIC STABLE
#h/o CVA - c/w aspirin/plavix
#h/o Paroxysmal SVT
#H/o Guillain-[place] syndrome
#chronic hearing loss, secondary to diabetic neuropathy
Regular Diet
DVT Ppx: Heparin SC
Code Status: Full Code
Long-term prognosis is guarded
Anticipated Discharge: > 48 hours
Subjective/Interval History
-
Date of Service: October 22, 2024
Seen and examined at the bedside. No acute events overnight. AFVSS this morning
Complains of a cough with yellow sputum production. Refused x-ray that was offered. No leukocytosis or fevers, no worsening dyspnea
Denies any other new complaints
Objective Data
-
Labs:
Laboratory Results
10/22/24
06:53
WBC 10.8
Hgb 10.6 L
Hct 33.6 L
Plt Count 255
Sodium 137
Potassium 4.4
Chloride 100
Carbon Dioxide 27
BUN 13
Creatinine 2.5 H
Glucose 119 H
Calcium 8.6
Total Bilirubin 1.5 H
AST 32
ALT 14
Alkaline Phosphatase 512 H
Vital Signs:
Vital Signs
Temp Pulse Resp BP Pulse Ox
97.8 F 76 16 159/71 99
10/22/24 11:06 10/22/24 11:06 10/22/24 11:06 10/22/24 11:06 10/22/24 11:06
I&O
10/21/24 10/22/24 10/23/24
06:59 06:59 06:59
Intake Total 840 / 840 1380 / 1380
Balance 840 / 840 1380 / 1380
Review of Systems
-
History Source: Patient
All other systems: Reviewed and negative
Physical Exam
-
General: Well Developed, Pain, Appears Chronically Ill and Obese
HEENT: Normocephalic, Atraumatic and Moist Mucous Membranes
Respiratory: Clear to Auscultation and Non Labored Respirations
Cardiac: Regular Rhythm and S1/S2; Negative Murmur, Rub or Gallop
GI: Soft, Nontender, Nondistended and Normal Bowel Sounds
Musculoskeletal: No Clubbing, No Cyanosis and No Edema
Skin: Warm and Dry; Negative Rash
Neuro: AO x 3 and Nonfocal/Grossly Intact; Negative Tremors
Psych: Calm
Data Reviewed
-
Labs: Labs Reviewed by me and Discussed with Patient
[2024-10-22 15:06] VITALS: BP 159/69
--- NOTE | 2024-10-22 15:30 | PTCARENOTE ---
This am, pt complained of fq cough that was new with thick yellow sputum. Md aware and pt ordered tessalon pearls, given with improved cough. Pt refused cxr or any further testing on this. PT with 5 soda cans at bedside despite fluid restrictions,
pt education on fluid restrictions and is non compliant. Pt very poor appetite and appears malnoursihed with sunken cheeks and visible hallow facial featurs. Pt ate < 10% of breakfast and lunch. Pt had large soft orange Bm incontence. PT is 98% on 2
liters but has requested to keep her oxygen on. PT refused her bumex. Education was given on why it was importance. Tele maintained with HF > 120, PT with LE +3-4 pitting and BUE +1-2 murmur. Pt with fq requests. Pt refused Sq heparin, education
given pt did take her aspirin and plavix.
[2024-10-22 16:40] LABS: Glucose - Point of Care 138 mg/dl (70-99)
[2024-10-22 19:00] VITALS: BP 151/59
[2024-10-22 21:51] LABS: Glucose - Point of Care 104 mg/dl (70-99)
[2024-10-22] MEDS: LANTUS SC (21:58)
[2024-10-22 22:13] VITALS: BP 147/65
[2024-10-23 03:00] VITALS: BP 145/64
[2024-10-23 06:00] VITALS: BMI 31.5
[2024-10-23 07:05] VITALS: BP 148/71
[2024-10-23 07:14] LABS: % Basophils 0.7 % (0-2); % Eosinophils 2.3 % (0-6); % Immature Granulocytes 0.6 % (0-0.5); % Lymphocytes 13.5 % (20.5-51.1); % Monocytes 10.1 % (1.7-9.3); % Neutrophils 72.8 % (42.2-75.2); Absolute Basophils 0.1 10^3/uL (0-0.2); Absolute Eosinophils 0.3 10^3/uL (0-0.7); Absolute Immature Granulocytes 0.1 10^3/uL (0-0.05); Absolute Lymphocytes 1.5 10^3/uL (1.2-3.4); Absolute Monocytes 1.1 10^3/uL (0.1-0.6); Absolute Neutrophils 7.8 10^3/uL (1.4-6.5); Hematocrit 35.8 % (37.0-47.0); Mean Corp Hgb Conc. 30.7 g/dL (33.0-37.0); Mean Corpuscular Hgb 26.2 pg (27.0-31.0); Mean Corpuscular Volume 85.2 fL (81.0-99.0); Mean Platelet Volume 9.7 fL (7.4-10.4); Nucleated Red Blood Cells % 0.2 %; Platelet Count 255 10^3/uL (130-400); Red Cell Dist. Width 21.1 % (11.5-14.5); White Blood Cell Count 10.8 10^3/uL (4.8-10.8)
[2024-10-23 07:45] LABS: ALT (SGPT) 12 U/L (0-35); AST (SGOT) 24 U/L (14-36); Albumin 3.1 g/dl (3.5-5.0); Alkaline Phosphatase 549 U/L (38-126); Blood Urea Nitrogen 17 mg/dl (7-17); Calcium 8.9 mg/dl (8.4-10.2); Carbon Dioxide 26 mmol/L (22-30); Chloride 100 mmol/L (98-107); Estimated Creatinine Clearance 22 ml/min; Glucose 126 mg/dl (70-99); Potassium 4.4 mmol/L (3.5-5.1); Sodium 138 mmol/L (135-145); Total Bilirubin 1.4 mg/dl (0.2-1.3); Total Protein 7.2 g/dl (6.3-8.2); eGFR 17.77
[2024-10-23 07:48] LABS: Glucose - Point of Care 109 mg/dl (70-99)
[2024-10-23] MEDS: NOVOLOG FLEXPEN SC ×3 (08:18→13:31)
[2024-10-23] MEDS: MUCINEX 600 MG PO ×2 (08:19→20:21)
[2024-10-23] MEDS: ASPIR LOW (ENTERIC COATED) 81 MG PO (08:19)
[2024-10-23] MEDS: PLAVIX 75 MG PO (08:19)
[2024-10-23] MEDS: SANTYL OINTMENT 1 APPLIC TOPICAL (08:20)
[2024-10-23] MEDS: HEPARIN 5000 UNITS SC (08:22)
[2024-10-23] MEDS: COREG 3.125 MG PO ×2 (08:22→20:39)
[2024-10-23] MEDS: HYDROPHOR 1 APPLIC TOPICAL (08:25)
[2024-10-23] MEDS: VISBIOME PO (08:32)
[2024-10-23] MEDS: TYLENOL 650 MG PO ×2 (08:32→20:45)
[2024-10-23] MEDS: TESSALON PERLES 200 MG PO (08:36)
[2024-10-23] MEDS: DRISDOL (VITAMIN D2) 50000 UNITS PO (08:40)
--- NOTE | 2024-10-23 10:49 | W.PN.HOSP.TC ---
Today's Communication/Plan
-
Stress test tomorrow
Consideration of BKA
HD tomorrow
BMP and CBC
Assessment / Plan
Assessment / Plan
#Pica Disorder
- patient endorses a compulsion to eat matches. She states she has been doing so since she was young, and that during times of stress she may consume as many as 100 matches per day.
- Matches contain potassium chlorate, sulfur, glue, red phosphorus, ammonium phosphate and paraffin, all of which are at the very least nephrotoxic
- Psych following; nephro aware.
#Cough
- Patient complaining of cough with yellow mucus production as of morning 10/22
- No worsening oxygenation, SpO2 99%
- Offered chest x-ray though patient refused
- Ordered Tessalon Perles as needed which have helped
- Consider repeat viral panel
#Ischemic vs. Nonischemic Myocardial Injury
#Elevated troponins
- chest pain and pressure, troponinemia, ECG showing sinus rhythm with PACs
- trops peaked
- Cardiology following; appreciate recs.
- Echo this admission with worsening RV function compared to December 2023
- Planning for nuclear test stress on Thursday after HD
#Acute Exacerbation of HFpEF
- Last Echo 12/2023 showing EF 65-70%, multivalvular disease, elevated PASP 60-65mmHg and Stage II diastolic dysfunction; repeat echo with worsening RV pressure overload
- repeat Echo showing 75%EF, flattening of septum consistent w/ elevated RV volume, moderate , Mod. AR, Mod. TR. PASP decreased to 30-35mmHg.
- clinical signs of acute on chronic volume overload
- was on 2L NC, intermittently requiring, more so at night
- c/w Coreg, Bumex, HD M/W/F
#Acute on Chronic Extreme Fatigue
#Depression
- patient is ESRD on dialysis w/ heart failure, suspect mostly nutritional deficiency and chronic illness, however concern for concurrent depression
- Psych consulted
#ESRD (on dialysis MWF)
#Hyperkalemia
- Question if this is related to toxicity from eating burnt matched hips
- R sided tunnelled dialysis cath. last received 10/18/2024
- Is on Bumex POA, patient states she makes urine
- nephro following; appreciate recs
- c/w dialysis per nephro w/ extra fluid removal
#R Dorsal Foot Wound
#H/o R metatarsal amputation
#H/o osteomyelitis
- open wound on dorsum of R foot
- Podiatry and Vascular -- recommending BKA, patient still to decide on course of action
#Multiple acute on chronic non-healing ulcers of various stages
#R heel with blistering and suspected stage 3 Pressure Injury
- wound care following
- non-toxic at this time
- c/w dressings and ointment
#Anemia, likely secondary to chronic disease and ESRD
- hgb at baseline, no signs of active bleeding
- given one dose EPO
- transfuse to keep hgb >7
#IDDM Type II
- h/o of poorly controlled Type II DM, prior A2Cs seem to be around 9-11%
- repeat A1C% this admission 9.0%
- c/w 3U long acting QHS and 2U AC
- glucose checks have been <200 during this admission
- c/w statin
CHRONIC STABLE
#h/o CVA - c/w aspirin/plavix
#h/o Paroxysmal SVT
#H/o Guillain-[place] syndrome
#chronic hearing loss, secondary to diabetic neuropathy
Regular Diet
DVT Ppx: Heparin SC
Code Status: Full Code
Long-term prognosis is guarded
Anticipated Discharge: > 48 hours
Subjective/Interval History
-
Date of Service: October 23, 2024
Seen and examined at the bedside. No acute events overnight. AFVSS this morning
Continues to have chest heaviness. Nuclear stress test planned for 10/24. Cough improved with Tessalon Perles
Denies any other new complaints this morning
Objective Data
-
Labs:
Laboratory Results
10/23/24
06:26
WBC 10.8
Hgb 11.0 L
Hct 35.8 L
Plt Count 255
Sodium 138
Potassium 4.4
Chloride 100
Carbon Dioxide 26
BUN 17
Creatinine 3.1 H
Glucose 126 H
Calcium 8.9
Total Bilirubin 1.4 H
AST 24
ALT 12
Alkaline Phosphatase 549 H
Vital Signs:
Vital Signs
Temp Pulse Resp BP Pulse Ox
99.0 F 77 18 148/71 97
10/23/24 07:05 10/23/24 07:05 10/23/24 07:05 10/23/24 07:05 10/23/24 07:05
I&O
10/22/24 10/23/24 10/24/24
06:59 06:59 06:59
Intake Total 1380 / 1380 120 / 120
Balance 1380 / 1380 120 / 120
Review of Systems
-
History Source: Patient
All other systems: Reviewed and negative
Physical Exam
-
General: Well Developed, Well Nourished and Appears Chronically Ill
HEENT: Normocephalic, Atraumatic, Moist Mucous Membranes and Anicteric
Respiratory: Clear to Auscultation and Non Labored Respirations; Negative Accessory Resp Muscle Use
Cardiac: Regular Rhythm and S1/S2; Negative Murmur, Rub or Gallop
GI: Soft, Nontender, Nondistended and Normal Bowel Sounds
Musculoskeletal: No Clubbing, No Cyanosis and No Edema
Skin: Warm, Dry and Other (Right lower extremity ulcer with bandaging); Negative Rash
Neuro: AO x 3 and Nonfocal/Grossly Intact; Negative Tremors
Psych: Calm
Data Reviewed
-
Labs: Labs Reviewed by me and Discussed with Patient
[2024-10-23 11:05] VITALS: BP 153/70
[2024-10-23 11:48] LABS: Glucose - Point of Care 119 mg/dl (70-99)
[2024-10-23 15:05] VITALS: BP 149/66
--- NOTE | 2024-10-23 15:52 | W.PN.NEPH.PH ---
Today's Communication / Plan
-
HD tomorrow prior stress test
Assessment/Plan
-
48-year-old female past medical history of right diabetic foot infection status post fifth toe amputation, peripheral arterial disease, ESRD on hemodialysis Thursday [facility] [address] [place] [address]
Impression:
ESRD
Thursday
Hyperkalemia
recent diabetic foot infection of right lateral foot possible osteomyelitis status post angiogram with stent placement on 07/08/2024
History of right diabetic foot infection status post fifth toe amputation on 12/06 and revision fourth toe amputation on 12/13
Peripheral arterial disease status post diagnostic arteriogram, intravascular lithotripsy of the posterior tibial artery and proximal SFA, balloon angioplasty and nitroglycerin injection of posterior tibial artery on 12/21/23
Chronic transaminitis
Type 1 diabetes
ESRD on hemodialysis Thursday and Thursday (stopped two months prior)
Chronic HFpEF
chronic anemia
Moderate aortic stenosis/aortic regurgitation
Mild to moderate mitral stenosis
Paroxysmal SVT
Iron deficiency anemia
History of CVA
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
PLan:
stable clinically remains hypervolemic on exam
HD with UF tomorrow
plan stress test after HD
Continue with diuretics Bumex, not sure if any UOP
eventual consideration of BKA
-
-
Date of Service: October 23, 2024
CC / HPI / ROS
-
Chief Complaint:
Presents with
Confusion altered mental status difficulty hearing
History of Present Illness:
ESRD Thursday volume overloaded chronic foot infection
wt is decreasing
Bp stable
Review of Systems:
No chest pain, still shortness of breath
No nausea or vomiting
Labs
-
Labs:
WBC 10.8 10^3/uL (4.8-10.8) 10/23/24 06:26
RBC 4.20 10^6/uL (4.20-5.40) 10/23/24 06:26
Hgb 11.0 g/dL (12.0-16.0) L 10/23/24 06:26
Hct 35.8 % (37.0-47.0) L 10/23/24 06:26
Plt Count 255 10^3/uL (130-400) 10/23/24 06:26
Sodium 138 mmol/L (135-145) 10/23/24 06:26
Potassium 4.4 mmol/L (3.5-5.1) 10/23/24 06:26
Chloride 100 mmol/L (98-107) 10/23/24 06:26
Carbon Dioxide 26 mmol/L (22-30) 10/23/24 06:26
BUN 17 mg/dl (7-17) 10/23/24 06:26
Creatinine 3.1 mg/dL (0.6-1.0) H 10/23/24 06:26
eGFR 17.77 10/23/24 06:26
Glucose 126 mg/dl (70-99) H 10/23/24 06:26
Calcium 8.9 mg/dl (8.4-10.2) 10/23/24 06:26
Albumin 3.1 g/dl (3.5-5.0) L 10/23/24 06:26
Physical Exam
-
Vital Signs:
Vital Signs
Temp Pulse Resp BP Pulse Ox
97.8 F 79 19 149/66 99
10/23/24 15:05 10/23/24 15:05 10/23/24 15:05 10/23/24 15:05 10/23/24 15:05
Cardiovascular:: Regular rate and rhythm
Respiratory:: Bilateral: Coarse
Lung Excursion:: Normal
Abdomen:: Nontender and Soft
Extremity Edema:: +3: Bilateral:
[place] Catheter: No
[2024-10-23 16:27] VITALS: BP 129/63; PULSE 79; O2SAT 98
[2024-10-23 16:46] LABS: Glucose - Point of Care 126 mg/dl (70-99)
[2024-10-23] MEDS: NOVOLOG FLEXPEN 2 UNITS SC (18:14)
[2024-10-23 20:03] VITALS: BP 144/73
[2024-10-23] MEDS: COREG PO (20:16)
[2024-10-23] MEDS: HEPARIN SC ×2 (20:21→20:29)
[2024-10-23 22:27] LABS: Glucose - Point of Care 233 mg/dl (70-99)
[2024-10-23] MEDS: LANTUS SC (22:44)
[2024-10-24] VITALS (7 sets, daily range): BP systolic 130–161; BP diastolic 49–79; BMI 31.9
[2024-10-24 07:48] LABS: Glucose - Point of Care 162 mg/dl (70-99)
--- NOTE | 2024-10-24 08:01 | W.PN.HOSP.TC ---
Addendum entered and electronically signed by Kamaljit Haq MD 10/24/24 15:37:
Acute on chronic HFpEF exacerbation, NYHA class III-IV, EF 65 to 70%
Volume management with hemodialysis and Bumex Thursday
Cardiology following
ESRD on hemodialysis via right anterior chest wall primary catheter
Hemodialysis per nephrology recommendations
Right dorsal foot wound with findings concerning for osteomyelitis as the foot wound is nonhealing.
Vascular and podiatry both surgical specialties recommending BKA
- Previously was not agreeable with now seems agreeable at this time
Stress test tomorrow as this will be part of cardiac clearance
Post stress test if cardiology clears then would be acceptable risk
Original Note:
Today's Communication/Plan
-
Dialysis tomorrow, with possible stress test
Possible OR tomorrow for BKA
Assessment / Plan
Assessment / Plan
49 year old female presenting with extreme fatigue s/p Dialysis
#Pica Disorder
- patient endorses a compulsion to eat matches. She states she has been doing so since she was young, and that during times of stress she may consume as many as 100 matches per day.
- Matches contain potassium chlorate, sulfur, glue, red phosphorus, ammonium phosphate and paraffin, all of which are at the very least nephrotoxic
- Psych consulted; nephro aware.
#Cough
- persistent cough since 10/22, productive of sputum. Initially patient did not want mucinex, but now is agreeable to it. She is also on tessalon perles which she says offer some improvement.
- most likely related to fluid status, however she has mild leukocytosis today at 11.3
- Initially refused CXR over the weekend, but is agreeable to it today. Will order.
#Ischemic vs. Nonischemic Myocardial Injury
#Elevated troponins
- chest pain and pressure, troponinemia, ECG showing sinus rhythm with PACs
- trops peaked
- Echo this admission with worsening RV function compared to December 2023
- Pt refusing heart cath
- Was meant to have nuclear stress test today, scheduled for tomorrow due to cough; dialysis to take off extra fluid tomorrow.
#Acute Exacerbation of HFpEF
- Last Echo 12/2023 showing EF 65-70%, multivalvular disease, elevated PASP 60-65mmHg and Stage II diastolic dysfunction
- repeat Echo showing 75%EF, flattening of septum consistent w/ elevated RV volume, moderate , Mod. AR, Mod. TR. PASP decreased to 30-35mmHg. RV function is worse on today's echo when compared to prior 12/2023.
- clinical signs of acute on chronic volume overload
- was on 2L NC, intermittently requiring, more so at night
- c/w Coreg, Bumex, dialysis
#Acute on Chronic Extreme Fatigue
#Depression
- patient is ESRD on dialysis w/ heart failure, suspect mostly nutritional deficiency and chronic illness, however concern for concurrent depression
- Psych consulted
#ESRD (on dialysis MWF)
#Hyperkalemia
- R sided tunnelled dialysis cath. last received 10/18/2024
- Is on Bumex POA, patient states she makes urine
- nephro following; appreciate recs
- c/w dialysis per nephro w/ extra fluid removal
#R Dorsal Foot Wound
#H/o R metatarsal amputation
#H/o osteomyelitis
- nonhealing open wound on dorsum of R foot
- Podiatry and Vascular -- recommending BKA, tentatively schedule for OR tomorrow, patient seems agreeable at this time.
#Multiple acute on chronic non-healing ulcers of various stages
#R heel with blistering and suspected stage 3 Pressure Injury
- wound care following
- non-toxic at this time
- c/w dressings and ointment
#Anemia, likely secondary to chronic disease and ESRD
- hgb at baseline, no signs of active bleeding
- given one dose EPO
- transfuse to keep hgb >7
#IDDM Type II
- h/o of poorly controlled Type II DM, prior A2Cs seem to be around 9-11%
- repeat A1C% this admission 9.0%
- c/w 3U long acting QHS and 2U AC
- glucose checks have been <200 during this admission
- c/w statin
CHRONIC STABLE
#h/o CVA - c/w aspirin/plavix
#h/o Paroxysmal SVT
#H/o Guillain-[place] syndrome
#chronic hearing loss, secondary to diabetic neuropathy
Regular Diet
DVT Ppx: Heparin SC
Code Status: Full Code
Anticipated Discharge: 24 - 48 hours
Subjective/Interval History
-
Date of Service: October 24, 2024
Still having cough productive of sputum and SOB. Diffuse myalgias unchanged from prior.
Objective Data
-
Labs:
Laboratory Results
10/24/24
07:32
WBC Pending
Hgb Pending
Hct Pending
Plt Count Pending
Sodium Pending
Potassium Pending
Chloride Pending
Carbon Dioxide Pending
BUN Pending
Creatinine Pending
Glucose Pending
Calcium Pending
Total Bilirubin Pending
AST Pending
ALT Pending
Alkaline Phosphatase Pending
Vital Signs:
Vital Signs
Temp Pulse Resp BP Pulse Ox
97.5 F 71 17 135/49 98
10/24/24 07:05 10/24/24 07:05 10/24/24 07:05 10/24/24 07:05 10/24/24 07:05
I&O
10/23/24 10/24/24 10/25/24
06:59 06:59 06:59
Intake Total 120 / 120 1200 / 1200
Balance 120 / 120 1200 / 1200
Review of Systems
-
History Source: Patient
All other systems: Reviewed and negative
Constitutional: Reports No Symptoms
EENT: Reports No Symptoms Reported
Respiratory: Reports Cough and Trouble Breathing; Denies Hemoptysis
Cardiac: Reports No Symptoms
Abdomen/GI: Reports No Symptoms
Genitourinary: Reports No Symptoms
Musculoskeletal: Reports No Symptoms
Neuro: Reports No Symptoms
Endocrine: Reports No Symptoms
Physical Exam
-
General: No Apparent Distress, Appears Chronically Ill and Obese
HEENT: Normocephalic, Atraumatic, Moist Mucous Membranes, Anicteric and [place] Conjunctivae
Respiratory: Rales; Negative Clear to Auscultation, Wheezes or Rhonchi
Cardiac: Regular Rhythm, S1/S2 and Murmur; Negative Rub
GI: Normal Bowel Sounds, Tender and Distended
Genito-urinary: No Costovertebral Tender and Other (Dialysis)
Musculoskeletal: No Clubbing, No Cyanosis, Edema, Right Lower Extrem and Edema, Left Lower Extrem
Skin: Warm, Dry, Ulcers and IV Access / Catheter Site
Neuro: Awake, Alert and Oriented
[2024-10-24] MEDS: HEPARIN SC ×2 (08:13→21:14)
[2024-10-24] MEDS: ASPIR LOW (ENTERIC COATED) 81 MG PO (08:28)
[2024-10-24] MEDS: VISBIOME 1 CAP PO (08:28)
[2024-10-24] MEDS: MUCINEX 600 MG PO ×2 (08:28→21:14)
[2024-10-24] MEDS: SANTYL OINTMENT 1 APPLIC TOPICAL (08:28)
[2024-10-24] MEDS: PLAVIX 75 MG PO (08:28)
[2024-10-24] MEDS: COREG 3.125 MG PO (08:29)
[2024-10-24 08:30] LABS: % Basophils 0.7 % (0-2); % Eosinophils 2.3 % (0-6); % Immature Granulocytes 0.5 % (0-0.5); % Lymphocytes 12.2 % (20.5-51.1); % Monocytes 9.2 % (1.7-9.3); % Neutrophils 75.1 % (42.2-75.2); Absolute Basophils 0.1 10^3/uL (0-0.2); Absolute Eosinophils 0.3 10^3/uL (0-0.7); Absolute Immature Granulocytes 0.1 10^3/uL (0-0.05); Absolute Lymphocytes 1.4 10^3/uL (1.2-3.4); Absolute Neutrophils 8.5 10^3/uL (1.4-6.5); Hematocrit 36.6 % (37.0-47.0); Hemoglobin 10.9 g/dL (12.0-16.0); Mean Corp Hgb Conc. 29.8 g/dL (33.0-37.0); Mean Corpuscular Hgb 26.2 pg (27.0-31.0); Mean Platelet Volume 9.4 fL (7.4-10.4); Nucleated Red Blood Cells % 0 %; Platelet Count 274 10^3/uL (130-400); Red Blood Cell Count 4.16 10^6/uL (4.20-5.40); Red Cell Dist. Width 21.2 % (11.5-14.5); White Blood Cell Count 11.3 10^3/uL (4.8-10.8)
[2024-10-24] MEDS: HYDROPHOR 1 APPLIC TOPICAL (08:30)
[2024-10-24 09:00] LABS: ALT (SGPT) 12 U/L (0-35); AST (SGOT) 23 U/L (14-36); Albumin 3.3 g/dl (3.5-5.0); Alkaline Phosphatase 514 U/L (38-126); Blood Urea Nitrogen 25 mg/dl (7-17); Calcium 8.6 mg/dl (8.4-10.2); Carbon Dioxide 27 mmol/L (22-30); Chloride 99 mmol/L (98-107); Estimated Creatinine Clearance 19 ml/min; Glucose 176 mg/dl (70-99); Phosphorus 5.3 mg/dl (2.5-4.5); Potassium 4.4 mmol/L (3.5-5.1); Sodium 138 mmol/L (135-145); Total Bilirubin 1.2 mg/dl (0.2-1.3); Total Protein 7.5 g/dl (6.3-8.2); eGFR 14.85
[2024-10-24] MEDS: NOVOLOG FLEXPEN SC ×2 (09:00→16:57)
--- NOTE | 2024-10-24 09:56 | W.PN.CD ---
Addendum entered and electronically signed by Evie Arteaga MD 10/24/24 10:42:
I saw and examined the patient.
The MAKEUP ARTISTRY INSTRUCTOR's note was reviewed and I agree with the note.
Comment: She is still sob, with increased cough over the weekend. Otherwise, 'I don't know how I feel'. On exam she is awake and alert. She has faint expiratory wheeze with diffuse rhonchi while on HD. She has a rrr. 1+ edema b/l. Unfortunated with
active bronchospasm and rhochi she will not be a candidate for a lexiscan. She is not interested in a cath. Will d/w team, ?extra dialysis tomorrow then a stress to follow. With her tenuous respiratory status, I would not proceed to the OR
tomorrow.
I updated medical service, Dr Kim and Dr Whitmore via [facility], so care coordination can be planned.
Original Note:
Today's Communication / Plan
-
-Patient with cough and mildly elevated WBC. Lungs with rhonchi, wheezing. CXR as noted. We will likely have to cancel stress test for today and may need repeat viral/infectious w/u. Will discuss with Dr. Arteaga, as well as primary team.
Impression / Plan
-
Cough:
-patient reports cough developed over the weekend, WBC mildly elevated. Breathing feels off. No change in O2 requirements. Lung auscultation with rhonchi and wheezing this AM. CXR report: Mild pulmonary vascular congestion. Cardiomegaly. Interface
along the periphery of the left hemithorax favored to represent a skin fold rather than a pneumothorax with lung markings noted distal to the fold, but consider a follow-up chest radiograph for reevaluation. May need to repeat viral/infectious
tests- to discuss with primary team.
ESRD:
-getting HD presently, nephrology following
Lethargy/weakness prior to presenting complaint. COVID and flu negative/- exact etiology unclear, may be multifactorial
-Sounds as if she has had some generalized weakness she says she has had weakness ever since her Guillain-Song�.
-Also has some muscle aches. CPK is low.
-statin being held
Chest discomfort, abnormal troponin:
-suspect acute, non-ischemic myocardial injury in setting of ESRD
-chest discomfort is atypical in that it is constant for months. She has a hard time differentiating it from abdominal pain.
-however, she has multiple risk factors for CAD and now possible surgery, needs further risk assessment
-Echocardiogram without regional wall motion abnormality.
-plan for lexiscan stress test. Was planned for today, but now with cough and WBC, may have to reconsider- to discuss with Dr. Arteaga and primary team.
Chronic HFpEF:
-volume management with HD
-still with LE edema, weight is down
Valvular heart disease:
-Echo 12/07/23: Left ventricle is small in size. Hyperdynamic left ventricular systolic function. Stage II DD. Dense MAC. Mild to moderate mitral stenosis (calcific in nature with the dense MAC. The anterior MV leaflet moves normally). Mild mitral
regurgitation. Thickened aortic valve with restricted leaflet motion. Moderate , AR, PASP 60-65 mmHg.
-echo 10/20/2024 similar to above with improved pasp 30-35mmHg.
-hx aortic valve surgery at age 5? No records available as noted per [facility]. No prosthetic material in the aortic valve or root area on imaging
nonhealing wounds on Rt foot:
-Vascular recommending BKA
Subjective:
Patient reports that she developed cough over the weekend and that breathing is somewhat difficult. She is in no respiratory distress. General discomfort including chest continues- no change.
Data:
TTE10/20/24 : Hyperdynamic left ventricular systolic function. LVEF 75%.
Likely elevated LV filling pressures.
Enlarged right ventricle with reduced systolic function. Septal flattening
consistent with elevated RV volume/pressure overload.
Moderate aortic stenosis (44/28 mmHg, 1.1 cm2 by continuity equation,
planimetry 1.45 cm2).
Moderate aortic regurgitation.
Mild tricuspid regurgitation. PASP 30-35 mmHg.
Physical Exam
Vital Signs/Labs
Vital Signs
Temp Pulse Resp BP Pulse Ox
97.5 F 71 17 135/49 98
10/24/24 07:05 10/24/24 08:29 10/24/24 07:05 10/24/24 08:29 10/24/24 07:05
10/23/24 10/24/24 10/25/24
06:59 06:59 06:59
Actual Weight 80.694 kg 81.737 kg
10/24/24 07:32
10/24/24 07:32
Magnesium 2.0 mg/dl (1.6-2.3) 10/19/24 12:50
Free T4 1.45 ng/dl (0.78-2.19) 10/19/24 12:50
Physical Exam
Constitutional: No acute distress
EENT: Anicteric
Cardiovascular: Rhythm & rate is regular, Pedal edema present (mild BLE edema) and Systolic murmur present
Respiratory: Wheeze Present, Rhonchi Present and Other (on O2 by NC)
Neuro/Psych: AO x 3
Other: Skin
Data Reviewed
-
Date of Service: October 24, 2024
EKG: Other (SR on telemetry)
Labs: Labs Reviewed by me
[2024-10-24 11:54] LABS: Glucose - Point of Care 104 mg/dl (70-99)
--- NOTE | 2024-10-24 13:05 | W.PN.NEPH.HD ---
Assessment
-
pt seen during HD
vitals stable
sig hypervolemia need more UF
stress test tomorrow post extra UF
CVC functions fine
strict renal diet and FR 33ounces/day
d/w pt
Progress Note - Hemodialysis
-
Date of Service: October 24, 2024
Duration: 30 minutes and 3 hours
Potassium Bath: 3
Calcium Bath: 2.5
Opti-Dialyzer: 160
Ultrafiltration: Other (3-3.5kg)
Blood Flow: 400
Dialysate Flow: 600
Heparin: yesx2
EPO: no
[2024-10-24 13:07] LABS: COVID-19 Antigen Negative (Negative)
[2024-10-24] MEDS: TYLENOL 650 MG PO (14:44)
--- NOTE | 2024-10-24 15:29 | CM ---
Met with patient at bedside
Outpatient HD at [facility];[address] [place] [address] starting on 08/22, Thursday, Thursday And Thursday at 11:00
[facility] referral in [facility]
stated if she is to have rehab after amputation would prefer [facility]
spoke with [facility] does HD
PLAN: TBD, continue to follow for dispo planning
[2024-10-24 17:16] LABS: Glucose - Point of Care 171 mg/dl (70-99)
[2024-10-24] MEDS: NOVOLOG FLEXPEN 2 UNITS SC (18:12)
[2024-10-24] MEDS: NOVOLOG FLEXPEN-LOW RESISTANCE 1 UNITS SC (18:13)
[2024-10-24 21:19] LABS: Glucose - Point of Care 138 mg/dl (70-99)
[2024-10-24] MEDS: COREG PO (21:21)
[2024-10-24] MEDS: LANTUS SC (21:30)
[2024-10-24] MEDS: NOVOLOG FLEXPEN-LOW RESISTANCE SC (21:32)
[2024-10-25 03:06] VITALS: BP 127/66
[2024-10-25 04:15] VITALS: BMI 30.8
[2024-10-25 05:58] LABS: Glucose - Point of Care 109 mg/dl (70-99)
[2024-10-25] MEDS: NOVOLOG FLEXPEN-LOW RESISTANCE SC ×4 (05:59→23:01)
[2024-10-25 07:15] VITALS: BP 146/70
[2024-10-25 07:17] LABS: % Basophils 0.9 % (0-2); % Eosinophils 2.8 % (0-6); % Immature Granulocytes 0.4 % (0-0.5); % Lymphocytes 14.1 % (20.5-51.1); % Monocytes 8.7 % (1.7-9.3); % Neutrophils 73.1 % (42.2-75.2); Absolute Basophils 0.1 10^3/uL (0-0.2); Absolute Eosinophils 0.3 10^3/uL (0-0.7); Absolute Immature Granulocytes 0.1 10^3/uL (0-0.05); Absolute Lymphocytes 1.7 10^3/uL (1.2-3.4); Absolute Monocytes 1.1 10^3/uL (0.1-0.6); Absolute Neutrophils 8.9 10^3/uL (1.4-6.5); Hematocrit 36.6 % (37.0-47.0); Hemoglobin 11.2 g/dL (12.0-16.0); Mean Corp Hgb Conc. 30.6 g/dL (33.0-37.0); Mean Corpuscular Hgb 25.9 pg (27.0-31.0); Mean Corpuscular Volume 84.7 fL (81.0-99.0); Mean Platelet Volume 9.5 fL (7.4-10.4); Nucleated Red Blood Cells % 0 %; Platelet Count 272 10^3/uL (130-400); Red Blood Cell Count 4.32 10^6/uL (4.20-5.40); Red Cell Dist. Width 20.8 % (11.5-14.5); White Blood Cell Count 12.2 10^3/uL (4.8-10.8)
[2024-10-25 07:29] LABS: ALT (SGPT) 11 U/L (0-35); AST (SGOT) 22 U/L (14-36); Albumin 3.4 g/dl (3.5-5.0); Alkaline Phosphatase 437 U/L (38-126); Blood Urea Nitrogen 16 mg/dl (7-17); Calcium 8.5 mg/dl (8.4-10.2); Carbon Dioxide 26 mmol/L (22-30); Chloride 99 mmol/L (98-107); Estimated Creatinine Clearance 24 ml/min; Glucose 130 mg/dl (70-99); Sodium 136 mmol/L (135-145); Total Bilirubin 1.2 mg/dl (0.2-1.3); Total Protein 7.7 g/dl (6.3-8.2); eGFR 20.07
[2024-10-25] MEDS: TYLENOL PO (07:48)
[2024-10-25] MEDS: SANTYL OINTMENT 1 APPLIC TOPICAL (07:48)
[2024-10-25] MEDS: HYDROPHOR 1 APPLIC TOPICAL (07:50)
[2024-10-25] MEDS: COREG PO ×2 (07:53→19:51)
[2024-10-25] MEDS: ASPIR LOW (ENTERIC COATED) PO (07:53)
[2024-10-25] MEDS: PLAVIX PO (07:54)
[2024-10-25] MEDS: MUCINEX PO (07:54)
[2024-10-25] MEDS: VISBIOME PO (07:54)
[2024-10-25] MEDS: HEPARIN 500 UNITS IV ×2 (07:55→09:00)
[2024-10-25] MEDS: HEPARIN SC ×2 (08:01→19:51)
[2024-10-25] MEDS: FLEXBUMIN 25% FOR HEMODIALYSIS 12.5 GRAMS IV (08:05)
[2024-10-25] MEDS: NOVOLOG FLEXPEN SC ×3 (09:01→18:42)
--- NOTE | 2024-10-25 09:09 | W.PN.HOSP.TC ---
Addendum entered and electronically signed by Kamaljit Haq MD 10/25/24 14:31:
Acute on chronic HFpEF exacerbation, NYHA class III-IV, EF 65 to 70%
Volume management with hemodialysis and Bumex Thursday
For HD today
Cardiology following
ESRD on hemodialysis via right anterior chest wall primary catheter
Hemodialysis per nephrology recommendations
Right dorsal foot wound with findings concerning for osteomyelitis as the foot wound is nonhealing.
Vascular and podiatry both surgical specialties recommending BKA
- Previously was not agreeable with now seems agreeable at this time
Stress testtoday as this will be part of cardiac clearance
Post stress test if cardiology clears then would be acceptable risk
Original Note:
Today's Communication/Plan
-
Stress test today
Repeat CXR
Dialysis tomorrow
Pending decision on BKA
Assessment / Plan
Assessment / Plan
49 year old female presenting with extreme fatigue s/p Dialysis
#Pica Disorder
- patient endorses a compulsion to eat matches. She states she has been doing so since she was young, and that during times of stress she may consume as many as 100 matches per day.
- Matches contain potassium chlorate, sulfur, glue, red phosphorus, ammonium phosphate and paraffin, all of which are at the very least nephrotoxic
- Psych consulted; nephro aware.
#Cough
- persistent cough since 10/22, productive of sputum. Initially patient did not want mucinex, but now is agreeable to it. She is also on tessalon perles which she says offer some improvement.
- most likely related to fluid status, however she has mild leukocytosis today at 11.3
- CXR showing possible pneumothorax, favor skin fold. Will order CXR 2 views with expiratory view
#Ischemic vs. Nonischemic Myocardial Injury
#Elevated troponins
- chest pain and pressure, troponinemia, ECG showing sinus rhythm with PACs
- trops peaked
- Echo this admission with worsening RV function compared to December 2023
- Pt refusing heart cath
- Nuclear stress test today
#R Dorsal Foot Wound
#H/o R metatarsal amputation
#H/o osteomyelitis
- nonhealing open wound on dorsum of R foot
- Podiatry and Vascular -- recommending BKA. OR available now Thursday at the soonest. Vascular to speak with patient again to confirm operation.
(Would like to go to [facility] after surgery)
#Acute Exacerbation of HFpEF
- Last Echo 12/2023 showing EF 65-70%, multivalvular disease, elevated PASP 60-65mmHg and Stage II diastolic dysfunction
- repeat Echo showing 75%EF, flattening of septum consistent w/ elevated RV volume, moderate , Mod. AR, Mod. TR. PASP decreased to 30-35mmHg. RV function is worse on today's echo when compared to prior 12/2023.
- clinical signs of acute on chronic volume overload
- was on 2L NC, intermittently requiring, more so at night
- c/w Coreg, Bumex, dialysis
#Acute on Chronic Extreme Fatigue
#Depression
- patient is ESRD on dialysis w/ heart failure, suspect mostly nutritional deficiency and chronic illness, however concern for concurrent depression
- Psych consulted
#ESRD (on dialysis MWF)
#Hyperkalemia
- R sided tunnelled dialysis cath. last received 10/18/2024
- Is on Bumex POA, patient states she makes urine
- nephro following; appreciate recs
- c/w dialysis per nephro w/ extra fluid removal
#Multiple acute on chronic non-healing ulcers of various stages
#R heel with blistering and suspected stage 3 Pressure Injury
- non-toxic at this time
- wound care following, c/w dressings and ointment
CHRONIC STABLE
#Anemia, likely secondary to chronic disease and ESRD
- hgb at baseline, no signs of active bleeding
- given one dose EPO
- transfuse to keep hgb >7
#IDDM Type II
- h/o of poorly controlled Type II DM, prior A2Cs seem to be around 9-11%
- repeat A1C% this admission 9.0%
- c/w 3U long acting QHS and 2U AC
- glucose checks have been <200 during this admission
- c/w statin
#h/o CVA - c/w aspirin/plavix
#h/o Paroxysmal SVT
#H/o Guillain-[place] syndrome
#chronic hearing loss, secondary to diabetic neuropathy
Regular Diet
DVT Ppx: Heparin SC
Code Status: Full Code
Anticipated Discharge: > 48 hours
Subjective/Interval History
-
Date of Service: October 25, 2024
No acute complaints today. No acute overnight events.
Objective Data
-
Labs:
Laboratory Results
10/25/24
06:43
WBC 12.2 H
Hgb 11.2 L
Hct 36.6 L
Plt Count 272
Sodium 136
Potassium 4.0
Chloride 99
Carbon Dioxide 26
BUN 16
Creatinine 2.8 H
Glucose 130 H
Calcium 8.5
Total Bilirubin 1.2
AST 22
ALT 11
Alkaline Phosphatase 437 H
Vital Signs:
Vital Signs
Temp Pulse Resp BP Pulse Ox
97.3 F 78 16 146/70 98
10/25/24 07:15 10/25/24 07:15 10/25/24 07:15 10/25/24 07:15 10/25/24 07:15
I&O
10/24/24 10/25/24 10/26/24
06:59 06:59 06:59
Intake Total 1200 / 1200 600 / 600
Balance 1200 / 1200 600 / 600
Review of Systems
-
History Source: Patient
Constitutional: Reports No Symptoms
EENT: Reports No Symptoms Reported
Respiratory: Reports Cough and Trouble Breathing; Denies Hemoptysis, Wheezing or Pleurisy
Cardiac: Reports No Symptoms
Abdomen/GI: Reports No Symptoms
Genitourinary: Reports No Symptoms
Musculoskeletal: Reports No Symptoms
Skin: Reports Sores
Neuro: Reports No Symptoms
Physical Exam
-
General: Comfortable and Appears Chronically Ill
HEENT: Normocephalic, Atraumatic, Moist Mucous Membranes, [place] Conjunctivae and Oxygen
Respiratory: Rales and Non Labored Respirations; Negative Wheezes or Rhonchi
Cardiac: Regular Rhythm and S1/S2; Negative Murmur or Rub
GI: Soft, Nontender, Nondistended and Normal Bowel Sounds
Musculoskeletal: No Clubbing, No Cyanosis, Edema, Right Lower Extrem and Edema, Left Lower Extrem
Skin: Warm, Dry, Ulcers, Decubitus Ulcers and IV Access / Catheter Site
Neuro: Awake, Alert and Oriented
--- NOTE | 2024-10-25 10:14 | W.PN.NEPH.HD ---
Assessment
-
Patient seen on oh isolated UF treatment for 3hrs
Routine dialysis to be performed tomorrow
Progress Note - Hemodialysis
-
Date of Service: October 25, 2024
Duration: 30 minutes and 2 hours
Opti-Dialyzer: 160
Ultrafiltration: Other (Isolated ultrafiltration for 3 kg)
Blood Flow: 200
Dialysate Flow: Other (None)
Heparin: None
EPO: None
[2024-10-25] MEDS: HEPARIN 3700 UNITS INTRACATH (10:21)
[2024-10-25 11:10] VITALS: BP 142/63; PULSE 81; O2SAT 97
[2024-10-25] MEDS: LEXISCAN 0.4 MG IV (14:05)
--- NOTE | 2024-10-25 14:27 | PTCARENOTE ---
in department for Lexiscan stress. see paperwork for imaging protocol. some GI c/o after test, reversed with aminophylline per protocol 75 mg IV. Relief obtained.
[2024-10-25] MEDS: AMINOPHYLLINE 75 MG IV (14:28)
--- NOTE | 2024-10-25 15:28 | W.PN.CD ---
Today's Communication / Plan
-
Normal Lexiscan nuc stress
She is likely elevated risk for amputation given her significant chronic conditions but needs no further CV testing
Impression / Plan
-
Cough:
-patient reports cough developed over the weekend, WBC mildly elevated. Breathing feels off. No change in O2 requirements. Lung auscultation with rhonchi and wheezing this AM. CXR report: Mild pulmonary vascular congestion. Cardiomegaly. Interface
along the periphery of the left hemithorax favored to represent a skin fold rather than a pneumothorax with lung markings noted distal to the fold, but consider a follow-up chest radiograph for reevaluation. May need to repeat viral/infectious
tests- to discuss with primary team.
ESRD:
-getting HD presently, nephrology following
Lethargy/weakness prior to presenting complaint. COVID and flu negative/- exact etiology unclear, may be multifactorial
-Sounds as if she has had some generalized weakness she says she has had weakness ever since her Guillain-[place]�.
-Also has some muscle aches. CPK is low.
-statin being held
Chest discomfort, abnormal troponin:
-suspect acute, non-ischemic myocardial injury in setting of ESRD
-chest discomfort is atypical in that it is constant for months.
- Stress below : was normal without perfusion defect
-Echocardiogram without regional wall motion abnormality.
Chronic HFpEF:
-volume management with HD
-still with LE edema, weight is down
Valvular heart disease:
-Echo 12/07/23: Left ventricle is small in size. Hyperdynamic left ventricular systolic function. Stage II DD. Dense MAC. Mild to moderate mitral stenosis (calcific in nature with the dense MAC. The anterior MV leaflet moves normally). Mild mitral
regurgitation. Thickened aortic valve with restricted leaflet motion. Moderate , AR, PASP 60-65 mmHg.
-echo 10/20/2024 similar to above with improved pasp 30-35mmHg.
-hx aortic valve surgery at age 5? No records available as noted per [facility]. No prosthetic material in the aortic valve or root area on imaging
nonhealing wounds on Rt foot:
-Vascular recommending BKA
Subjective:
Reports breath and CP improved today
Data:
TTE10/20/24 : Hyperdynamic left ventricular systolic function. LVEF 75%.
Likely elevated LV filling pressures.
Enlarged right ventricle with reduced systolic function. Septal flattening
consistent with elevated RV volume/pressure overload.
Moderate aortic stenosis (44/28 mmHg, 1.1 cm2 by continuity equation,
planimetry 1.45 cm2).
Moderate aortic regurgitation.
Mild tricuspid regurgitation. PASP 30-35 mmHg.
Physical Exam
Vital Signs/Labs
Vital Signs
Temp Pulse Resp BP Pulse Ox
97.3 F 78 16 146/70 98
10/25/24 07:15 10/25/24 07:15 10/25/24 07:15 10/25/24 07:15 10/25/24 07:15
10/24/24 10/25/24 10/26/24
06:59 06:59 06:59
Actual Weight 180 lb 3.2 oz 174 lb
10/25/24 06:43
10/25/24 06:43
Magnesium 2.0 mg/dl (1.6-2.3) 10/19/24 12:50
Free T4 1.45 ng/dl (0.78-2.19) 10/19/24 12:50
Physical Exam
Constitutional: No acute distress and Comfortable
EENT: Anicteric
Cardiovascular: Rhythm & rate is regular
Respiratory: Respiratory effort normal and Wheeze Present
GI: Soft
Neuro/Psych: AO x 3
Data Reviewed
-
Date of Service: October 25, 2024
Medical Decision Making: Reviewed Test Results
EKG: Tracing Personally Visualized and interpreted (sr)
Echo: Report Reviewed by me
Labs: Labs Reviewed by me
[2024-10-25 15:37] LABS: Glucose - Point of Care 95 mg/dl (70-99)
[2024-10-25 16:36] VITALS: BP 112/63
[2024-10-25] MEDS: TYLENOL 650 MG PO (17:40)
[2024-10-25 19:30] VITALS: BP 128/62
[2024-10-25] MEDS: MUCINEX 600 MG PO (19:51)
[2024-10-25 21:51] LABS: Glucose - Point of Care 151 mg/dl (70-99)
[2024-10-25] MEDS: LANTUS 0.03 UNITS SC (21:56)
[2024-10-25 23:20] VITALS: BP 150/71
[2024-10-26 03:20] VITALS: BP 130/63
[2024-10-26] MEDS: NOVOLOG FLEXPEN-LOW RESISTANCE SC ×4 (05:09→23:03)
[2024-10-26 05:57] VITALS: BMI 29.4
--- NOTE | 2024-10-26 07:05 | W.PN.HOSP.TC ---
Addendum entered and electronically signed by Kamaljit Haq MD 10/26/24 15:44:
Acute on chronic HFpEF exacerbation, NYHA class III-IV, EF 65 to 70%
Volume management with hemodialysis and Bumex Thursday
For HD today
Cardiology following
ESRD on hemodialysis via right anterior chest wall primary catheter
Hemodialysis per nephrology recommendations
Right dorsal foot wound with findings concerning for osteomyelitis as the foot wound is nonhealing.
Vascular and podiatry both surgical specialties recommending BKA
- Previously was not agreeable with now seems agreeable at this time
Stress test without ischemic evidence
Original Note:
Today's Communication/Plan
-
Dialysis today.
To discuss with surgery BKA, consent, timing, etc. Tentative OR date is 10/28/2024
Assessment / Plan
Assessment / Plan
49 year old female presenting with extreme fatigue s/p Dialysis
#Pica Disorder
- patient endorses a compulsion to eat matches. She states she has been doing so since she was young, and that during times of stress she may consume as many as 100 matches per day.
- Matches contain potassium chlorate, sulfur, glue, red phosphorus, ammonium phosphate and paraffin, all of which are at the very least nephrotoxic
- Psych consulted; nephro aware.
- Psych rec. antidepressants but patient not receptive to the idea at this time
#Cough
- persistent cough since 10/22, productive of sputum. Initially patient did not want mucinex, but now is agreeable to it. She was also on tessalon perles which she says offer some improvement.
- most likely related to fluid status, however she has mild leukocytosis today at 11.3
- CXR showing possible pneumothorax, favor skin fold. Repeat CXR w/ 2 views confirms no pneumo.
- c/w mucinex
#Likely Nonischemic Myocardial Injury
#Elevated troponins (resolved)
- chest pain and pressure, troponinemia, ECG showing sinus rhythm with PACs
- trops peaked
- Echo this admission with worsening RV function compared to December 2023
- Pt refusing heart cath
- Nuclear stress test -- no perfusion defect seen
#R Dorsal Foot Wound
#H/o R metatarsal amputation
#H/o osteomyelitis
- nonhealing open wound on dorsum of R foot
- Podiatry and Vascular -- recommending BKA. OR available now Thursday at the soonest. Vascular to speak with patient again to confirm operation.
(Would like to go to [facility] after surgery)
#Acute Exacerbation of HFpEF
- Last Echo 12/2023 showing EF 65-70%, multivalvular disease, elevated PASP 60-65mmHg and Stage II diastolic dysfunction
- repeat Echo showing 75%EF, flattening of septum consistent w/ elevated RV volume, moderate , Mod. AR, Mod. TR. PASP decreased to 30-35mmHg. RV function is worse on today's echo when compared to prior 12/2023.
- clinical signs of acute on chronic volume overload
- was on 2L NC, intermittently requiring, more so at night
- c/w Coreg, Bumex, dialysis w/ ultrafiltration
#Acute on Chronic Extreme Fatigue
#Depression
- patient is ESRD on dialysis w/ heart failure, suspect mostly nutritional deficiency and chronic illness, however concern for concurrent depression
- Psych consulted, rec. antidepressants but patient not receptive to the idea at this time
#ESRD (on dialysis MWF)
#Hyperkalemia
- R sided tunnelled dialysis cath. last received 10/18/2024
- Is on Bumex POA, patient states she makes urine
- nephro following; appreciate recs
- c/w dialysis per nephro w/ extra fluid removal
#Multiple acute on chronic non-healing ulcers of various stages
#R heel with blistering and suspected stage 3 Pressure Injury
- non-toxic at this time
- wound care following, c/w dressings and ointment
CHRONIC STABLE
#Anemia, likely secondary to chronic disease and ESRD
- hgb at baseline, no signs of active bleeding
- given one dose EPO
- transfuse to keep hgb >7
#IDDM Type I (correction, further chart review reveals Type I, prior documentation by me says Type II; it is Type I).
- h/o of poorly controlled Type I DM, prior A1Cs seem to be around 9-11%
- repeat A1C% this admission 9.0%
- c/w 3U long acting QHS and 2U AC
- POC glucose checks
- c/w statin
#h/o CVA - c/w aspirin/plavix
#h/o Paroxysmal SVT
#H/o Guillain-[place] syndrome
#chronic hearing loss, secondary to diabetic neuropathy
Regular Diet
DVT Ppx: Heparin SC
Code Status: Full Code
Anticipated Discharge: > 48 hours
Subjective/Interval History
-
Date of Service: October 26, 2024
Feeling tired this morning and scare of dying. She is understandably afraid of amputation and what the process for recovery looks like. No acute events overnight.
Objective Data
-
Labs:
Laboratory Results
10/26/24
06:00
WBC Pending
Hgb Pending
Hct Pending
Plt Count Pending
Sodium Pending
Potassium Pending
Chloride Pending
Carbon Dioxide Pending
BUN Pending
Creatinine Pending
Glucose Pending
Calcium Pending
Total Bilirubin Pending
AST Pending
ALT Pending
Alkaline Phosphatase Pending
Vital Signs:
Vital Signs
Temp Pulse Resp BP Pulse Ox
98.2 F 78 16 130/63 100
10/26/24 03:20 10/26/24 03:20 10/26/24 03:20 10/26/24 03:20 10/26/24 03:20
I&O
10/25/24 10/26/24 10/27/24
06:59 06:59 06:59
Intake Total 600 / 600
Balance 600 / 600
Review of Systems
-
History Source: Patient
Constitutional: Reports No Symptoms
EENT: Reports No Symptoms Reported
Respiratory: Reports Cough
Cardiac: Reports No Symptoms
Abdomen/GI: Reports No Symptoms
Genitourinary: Reports No Symptoms
Musculoskeletal: Reports No Symptoms
Skin: Reports Sores
Psych: Reports Sad and Anxious
Physical Exam
-
General: No Apparent Distress, Appears Chronically Ill and Obese
HEENT: Normocephalic, Atraumatic, Moist Mucous Membranes, PERRLA, Nose Appears Normal, Ears Appear Normal and Oxygen
Respiratory: Rales, Rhonchi and Non Labored Respirations; Negative Wheezes
Cardiac: Regular Rhythm, S1/S2 and Murmur; Negative Rub or Calf Tenderness
GI: Nondistended and Normal Bowel Sounds
Musculoskeletal: No Clubbing, No Cyanosis, Edema, Right Lower Extrem and Edema, Left Lower Extrem
Skin: Warm, Dry, Ulcers, IV Access / Catheter Site and Other (non-healing ulcer on R foot)
Neuro: Awake, Alert and Oriented
Psych: Depressed
[2024-10-26 07:15] VITALS: BP 161/73
[2024-10-26 07:27] LABS: Glucose - Point of Care 98 mg/dl (70-99)
[2024-10-26] MEDS: HEPARIN 500 UNITS IV ×2 (07:55→08:55)
[2024-10-26] MEDS: ASPIR LOW (ENTERIC COATED) 81 MG PO (07:58)
[2024-10-26] MEDS: SANTYL OINTMENT 1 APPLIC TOPICAL (07:58)
[2024-10-26] MEDS: PLAVIX 75 MG PO (07:59)
[2024-10-26] MEDS: COREG PO ×2 (07:59→20:26)
[2024-10-26] MEDS: MUCINEX 600 MG PO ×2 (07:59→20:25)
[2024-10-26] MEDS: TYLENOL 650 MG PO ×2 (07:59→21:46)
[2024-10-26] MEDS: VISBIOME 1 CAP PO (07:59)
[2024-10-26] MEDS: HYDROPHOR 1 APPLIC TOPICAL (07:59)
[2024-10-26] MEDS: HEPARIN SC (08:00)
[2024-10-26] MEDS: NOVOLOG FLEXPEN SC ×3 (08:00→17:38)
[2024-10-26 08:09] LABS: % Basophils 0.9 % (0-2); % Eosinophils 2.8 % (0-6); % Immature Granulocytes 0.5 % (0-0.5); % Lymphocytes 13.7 % (20.5-51.1); % Monocytes 9.4 % (1.7-9.3); % Neutrophils 72.7 % (42.2-75.2); Absolute Basophils 0.1 10^3/uL (0-0.2); Absolute Eosinophils 0.3 10^3/uL (0-0.7); Absolute Immature Granulocytes 0.1 10^3/uL (0-0.05); Absolute Lymphocytes 1.6 10^3/uL (1.2-3.4); Absolute Monocytes 1.1 10^3/uL (0.1-0.6); Absolute Neutrophils 8.7 10^3/uL (1.4-6.5); Hemoglobin 11.1 g/dL (12.0-16.0); Mean Corp Hgb Conc. 30.8 g/dL (33.0-37.0); Mean Corpuscular Hgb 26.3 pg (27.0-31.0); Mean Corpuscular Volume 85.3 fL (81.0-99.0); Mean Platelet Volume 9.7 fL (7.4-10.4); Nucleated Red Blood Cells % 0 %; Platelet Count 323 10^3/uL (130-400); Red Blood Cell Count 4.22 10^6/uL (4.20-5.40); Red Cell Dist. Width 20.9 % (11.5-14.5); White Blood Cell Count 11.9 10^3/uL (4.8-10.8)
[2024-10-26 08:44] LABS: ALT (SGPT) 10 U/L (0-35); AST (SGOT) 26 U/L (14-36); Albumin 3.5 g/dl (3.5-5.0); Alkaline Phosphatase 379 U/L (38-126); Blood Urea Nitrogen 21 mg/dl (7-17); Calcium 9.2 mg/dl (8.4-10.2); Carbon Dioxide 29 mmol/L (22-30); Chloride 98 mmol/L (98-107); Estimated Creatinine Clearance 20 ml/min; Glucose 104 mg/dl (70-99); Potassium 3.8 mmol/L (3.5-5.1); Sodium 138 mmol/L (135-145); Total Bilirubin 1.1 mg/dl (0.2-1.3); eGFR 16.48
[2024-10-26] MEDS: MANNITOL 25% 12.5 GRAMS IV ×2 (08:47→10:14)
[2024-10-26] MEDS: FLEXBUMIN 25% FOR HEMODIALYSIS 12.5 GRAMS IV ×2 (09:08→10:10)
--- NOTE | 2024-10-26 09:13 | CM ---
CM continues to follow for discharge planning. CM met with patient to review options.
Shea attends OP HD at [facility]
[address] at 11:00
She is known to [facility]
Recommendation for R BKA; Shea stated if she is to have rehab after amputation would prefer [facility]
spoke with [facility] does HD.
PLAN: anticipate transfer to [facility]. CM will continue to follow.
[2024-10-26 11:00] VITALS: BP 125/61
[2024-10-26] MEDS: HEPARIN 3700 UNITS INTRACATH (11:19)
[2024-10-26 11:58] LABS: Glucose - Point of Care 90 mg/dl (70-99)
--- NOTE | 2024-10-26 12:15 | W.PN.NEPH.HD ---
Assessment
-
Seen on dialysis tolerated treatment
Progress Note - Hemodialysis
-
Date of Service: October 26, 2024
Duration: 30 minutes and 2 hours
Opti-Dialyzer: 160
Ultrafiltration: Other (Isolated ultrafiltration for 3 kg)
Blood Flow: 200
Dialysate Flow: Other (None)
Heparin: None
EPO: None
[2024-10-26 15:15] VITALS: BP 114/65
[2024-10-26 16:52] LABS: Glucose - Point of Care 140 mg/dl (70-99)
[2024-10-26 19:51] VITALS: BP 147/79
[2024-10-26] MEDS: HEPARIN 5000 UNITS SC (20:25)
[2024-10-26 21:16] LABS: Glucose - Point of Care 183 mg/dl (70-99)
[2024-10-26] MEDS: LANTUS 0.03 UNITS SC (21:48)
[2024-10-26 23:16] VITALS: BP 132/76
[2024-10-27 04:00] VITALS: BP 138/84
[2024-10-27] MEDS: NOVOLOG FLEXPEN-LOW RESISTANCE SC ×2 (05:15→13:29)
[2024-10-27 07:42] LABS: % Basophils 1.2 % (0-2); % Eosinophils 4.1 % (0-6); % Immature Granulocytes 0.6 % (0-0.5); % Lymphocytes 18.7 % (20.5-51.1); % Monocytes 10.9 % (1.7-9.3); % Neutrophils 64.5 % (42.2-75.2); Absolute Basophils 0.1 10^3/uL (0-0.2); Absolute Eosinophils 0.4 10^3/uL (0-0.7); Absolute Immature Granulocytes 0.1 10^3/uL (0-0.05); Absolute Lymphocytes 1.9 10^3/uL (1.2-3.4); Absolute Monocytes 1.1 10^3/uL (0.1-0.6); Absolute Neutrophils 6.4 10^3/uL (1.4-6.5); Hematocrit 35.8 % (37.0-47.0); Hemoglobin 11.1 g/dL (12.0-16.0); Mean Corpuscular Hgb 26.7 pg (27.0-31.0); Mean Corpuscular Volume 86.1 fL (81.0-99.0); Mean Platelet Volume 9.4 fL (7.4-10.4); Nucleated Red Blood Cells % 0 %; Platelet Count 343 10^3/uL (130-400); Red Blood Cell Count 4.16 10^6/uL (4.20-5.40); Red Cell Dist. Width 20.6 % (11.5-14.5); White Blood Cell Count 9.9 10^3/uL (4.8-10.8)
[2024-10-27 07:55] VITALS: BP 157/67
[2024-10-27 08:04] LABS: ALT (SGPT) < 10 U/L (0-35); AST (SGOT) 20 U/L (14-36); Albumin 3.9 g/dl (3.5-5.0); Alkaline Phosphatase 389 U/L (38-126); Blood Urea Nitrogen 14 mg/dl (7-17); Carbon Dioxide 26 mmol/L (22-30); Chloride 99 mmol/L (98-107); Estimated Creatinine Clearance 25 ml/min; Glucose 94 mg/dl (70-99); Sodium 137 mmol/L (135-145); Total Bilirubin 1.1 mg/dl (0.2-1.3); Total Protein 8.1 g/dl (6.3-8.2); eGFR 21.94
[2024-10-27 08:09] LABS: Glucose - Point of Care 108 mg/dl (70-99)
[2024-10-27] MEDS: VISBIOME 1 CAP PO (08:52)
[2024-10-27] MEDS: ASPIR LOW (ENTERIC COATED) 81 MG PO (08:53)
[2024-10-27] MEDS: PLAVIX 75 MG PO (08:53)
[2024-10-27] MEDS: MUCINEX 600 MG PO ×2 (08:53→21:04)
[2024-10-27] MEDS: COREG PO ×2 (09:00→21:03)
[2024-10-27] MEDS: HEPARIN SC ×2 (09:01→21:03)
[2024-10-27] MEDS: HYDROPHOR TOPICAL (09:05)
[2024-10-27] MEDS: NOVOLOG FLEXPEN SC ×2 (10:37→12:27)
--- NOTE | 2024-10-27 11:06 | W.PN.HOSP.TC ---
Addendum entered and electronically signed by Kamaljit Haq MD 10/27/24 14:00:
NAD
Scleral Anicteric
MMM
No JVD
CTABL
RRR, S1/S2
Soft, NT, ND, BS+
Warm, Dry
AAOx3
Calm
Acute on chronic HFpEF exacerbation, NYHA class III-IV, EF 65 to 70%
Volume management with hemodialysis and Bumex Thursday
For HD tomorrow
Cardiology following
ESRD on hemodialysis via right anterior chest wall primary catheter
Hemodialysis per nephrology recommendations
Right dorsal foot wound with findings concerning for osteomyelitis as the foot wound is nonhealing.
Vascular and podiatry both surgical specialties recommending BKA
- Previously was not agreeable with now seems agreeable at this time
Stress test without ischemic evidence
Planned for BKA tomorrow with vascular surgery
Original Note:
Today's Communication/Plan
-
plan for BKA in OR tomorrow after dialysis
Assessment / Plan
Assessment / Plan
49 year old female presenting with extreme fatigue s/p Dialysis
#Pica Disorder
- patient endorses a compulsion to eat matches. She states she has been doing so since she was young, and that during times of stress she may consume as many as 100 matches per day.
- Matches contain potassium chlorate, sulfur, glue, red phosphorus, ammonium phosphate and paraffin, all of which are at the very least nephrotoxic
- Psych consulted; nephro aware.
- Psych rec. antidepressants but patient not receptive to the idea at this time
#Cough
- persistent cough since 10/22, productive of sputum. Initially patient did not want mucinex, but now is agreeable to it. She was also on tessalon perles which she says offer some improvement.
- most likely related to fluid status, however she has mild leukocytosis today at 11.3
- CXR showing possible pneumothorax, favor skin fold. Repeat CXR w/ 2 views confirms no pneumo.
- c/w mucinex
#Likely Nonischemic Myocardial Injury
#Elevated troponins (resolved)
- chest pain and pressure, troponinemia, ECG showing sinus rhythm with PACs
- trops peaked
- Echo this admission with worsening RV function compared to December 2023
- Pt refusing heart cath
- Nuclear stress test -- no perfusion defect seen
#R Dorsal Foot Wound
#H/o R metatarsal amputation
#H/o osteomyelitis
- nonhealing open wound on dorsum of R foot
- Podiatry and Vascular -- recommending BKA. OR available now Thursday at the soonest. Vascular to speak with patient again to confirm operation.
(Would like to go to [facility] after surgery)
#Acute Exacerbation of HFpEF
- Last Echo 12/2023 showing EF 65-70%, multivalvular disease, elevated PASP 60-65mmHg and Stage II diastolic dysfunction
- repeat Echo showing 75%EF, flattening of septum consistent w/ elevated RV volume, moderate , Mod. AR, Mod. TR. PASP decreased to 30-35mmHg. RV function is worse on today's echo when compared to prior 12/2023.
- clinical signs of acute on chronic volume overload
- was on 2L NC, intermittently requiring, more so at night
- c/w Coreg, Bumex, dialysis w/ ultrafiltration per Nephro
#Acute on Chronic Extreme Fatigue
#Depression
- patient is ESRD on dialysis w/ heart failure, suspect mostly nutritional deficiency and chronic illness, however concern for concurrent depression
- Psych consulted, rec. antidepressants but patient not receptive to the idea at this time
#ESRD (on dialysis MWF)
#Hyperkalemia
- R sided tunnelled dialysis cath. last received 10/18/2024
- Is on Bumex POA, patient states she makes urine
- nephro following; appreciate recs
- c/w dialysis per nephro w/ extra fluid removal
#Multiple acute on chronic non-healing ulcers of various stages
#R heel with blistering and suspected stage 3 Pressure Injury
- non-toxic at this time
- wound care following, c/w dressings and ointment
CHRONIC STABLE
#Anemia, likely secondary to chronic disease and ESRD
- hgb at baseline, no signs of active bleeding
- given one dose EPO
- transfuse to keep hgb >7
#IDDM Type I (correction, further chart review reveals Type I, prior documentation by me says Type II; it is Type I).
- h/o of poorly controlled Type I DM, prior A1Cs seem to be around 9-11%
- repeat A1C% this admission 9.0%
- c/w 3U long acting QHS and 2U AC
- POC glucose checks
- c/w statin
#h/o CVA - c/w aspirin/plavix
#h/o Paroxysmal SVT
#H/o Guillain-[place] syndrome
#chronic hearing loss, secondary to diabetic neuropathy
Regular Diet
DVT Ppx: Heparin SC
Code Status: Full Code
Anticipated Discharge: > 48 hours
Subjective/Interval History
-
Date of Service: October 27, 2024
No acute overnight events. Has cough productive of sputum. Refusing carvedilol.
Objective Data
-
Labs:
Laboratory Results
10/27/24
07:05
WBC 9.9
Hgb 11.1 L
Hct 35.8 L
Plt Count 343
Sodium 137
Potassium 4.0
Chloride 99
Carbon Dioxide 26
BUN 14
Creatinine 2.6 H
Glucose 94
Calcium 9.0
Total Bilirubin 1.1
AST 20
ALT < 10
Alkaline Phosphatase 389 H
Vital Signs:
Vital Signs
Temp Pulse Resp BP Pulse Ox
97.9 F 78 16 157/67 99
10/27/24 07:55 10/27/24 07:55 10/27/24 07:55 10/27/24 07:55 10/27/24 07:55
I&O
10/26/24 10/27/24 10/28/24
06:59 06:59 06:59
Intake Total 1520 / 1520
Balance 1520 / 1520
Review of Systems
-
History Source: Patient
Constitutional: Reports Fatigue and Weakness; Denies Fever, Night Sweats or Chills
EENT: Reports Other (nasal congestion)
Respiratory: Reports Cough; Denies Hemoptysis, Trouble Breathing, Wheezing or Pleurisy
Cardiac: Reports No Symptoms
Abdomen/GI: Reports No Symptoms
Breast: Reports No Symptoms
Genitourinary: Reports No Symptoms
Musculoskeletal: Reports No Symptoms
Skin: Reports No Symptoms
Neuro: Reports No Symptoms
Hematologic / Lymphatic: Reports No Symptoms
Physical Exam
-
General: No Apparent Distress and Appears Chronically Ill
HEENT: Normocephalic, Atraumatic, Moist Mucous Membranes, Anicteric, [place] Conjunctivae, Nose Appears Normal, Ears Appear Normal and Oxygen
Respiratory: Rales, Rhonchi and Non Labored Respirations; Negative Wheezes
Cardiac: Regular Rhythm and S1/S2; Negative Murmur or Rub
GI: Nondistended and Normal Bowel Sounds
Genito-urinary: No Costovertebral Tender
Musculoskeletal: No Clubbing, No Cyanosis, Edema, Right Lower Extrem and Edema, Left Lower Extrem
Skin: Warm, Dry and IV Access / Catheter Site
Neuro: Awake, Alert and Oriented
[2024-10-27] MEDS: SANTYL OINTMENT 1 APPLIC TOPICAL (11:23)
[2024-10-27 11:36] LABS: Glucose - Point of Care 110 mg/dl (70-99)
[2024-10-27 11:37] VITALS: BP 154/67
[2024-10-27 11:56] VITALS: BP 154/67; PULSE 83; O2SAT 100
--- NOTE | 2024-10-27 12:33 | W.PN.NEPH.PH ---
Today's Communication / Plan
-
Dialysis tomorrow prior to surgery
Assessment/Plan
-
48-year-old female past medical history of right diabetic foot infection status post fifth toe amputation, peripheral arterial disease, ESRD on hemodialysis Thursday [facility] [address] [place] [address]
Impression:
ESRD
Thursday
Hyperkalemia
recent diabetic foot infection of right lateral foot possible osteomyelitis status post angiogram with stent placement on 07/08/2024
History of right diabetic foot infection status post fifth toe amputation on 12/06 and revision fourth toe amputation on 12/13
Peripheral arterial disease status post diagnostic arteriogram, intravascular lithotripsy of the posterior tibial artery and proximal SFA, balloon angioplasty and nitroglycerin injection of posterior tibial artery on 12/21/23
Chronic transaminitis
Type 1 diabetes
ESRD on hemodialysis Thursday and Thursday (stopped two months prior)
Chronic HFpEF
chronic anemia
Moderate aortic stenosis/aortic regurgitation
Mild to moderate mitral stenosis
Paroxysmal SVT
Iron deficiency anemia
History of CVA
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
PLan:
Continue dialysis Thursday
BKA tomorrow
Dialysis early prior to surgery
Epogen as indicated for hemoglobin less than 10
Ultrafiltration as tolerated for blood pressure and weight gain
-
-
Date of Service: October 27, 2024
CC / HPI / ROS
-
Chief Complaint:
Presents with
Confusion altered mental status difficulty hearing
History of Present Illness:
ESRD Thursday volume overloaded chronic foot infection
wt is decreasing
Bp stable
Review of Systems:
No chest pain, still shortness of breath
No nausea or vomiting
Labs
-
Labs:
WBC 9.9 10^3/uL (4.8-10.8) 10/27/24 07:05
RBC 4.16 10^6/uL (4.20-5.40) L 10/27/24 07:05
Hgb 11.1 g/dL (12.0-16.0) L 10/27/24 07:05
Hct 35.8 % (37.0-47.0) L 10/27/24 07:05
Plt Count 343 10^3/uL (130-400) 10/27/24 07:05
Sodium 137 mmol/L (135-145) 10/27/24 07:05
Potassium 4.0 mmol/L (3.5-5.1) 10/27/24 07:05
Chloride 99 mmol/L (98-107) 10/27/24 07:05
Carbon Dioxide 26 mmol/L (22-30) 10/27/24 07:05
BUN 14 mg/dl (7-17) 10/27/24 07:05
Creatinine 2.6 mg/dL (0.6-1.0) H 10/27/24 07:05
eGFR 21.94 10/27/24 07:05
Glucose 94 mg/dl (70-99) 10/27/24 07:05
Calcium 9.0 mg/dl (8.4-10.2) 10/27/24 07:05
Phosphorus 5.3 mg/dl (2.5-4.5) H 10/24/24 07:32
Albumin 3.9 g/dl (3.5-5.0) 10/27/24 07:05
Physical Exam
-
Vital Signs:
Vital Signs
Temp Pulse Resp BP Pulse Ox
98.3 F 83 16 154/67 100
10/27/24 11:37 10/27/24 11:37 10/27/24 11:37 10/27/24 11:37 10/27/24 11:37
Cardiovascular:: Regular rate and rhythm
Respiratory:: Bilateral: Coarse
Lung Excursion:: Normal
Abdomen:: Nontender and Soft
Extremity Edema:: +3: Bilateral:
Whitmore Catheter: No
[2024-10-27] MEDS: NOVOLOG FLEXPEN 2 UNITS SC ×2 (13:29→18:41)
[2024-10-27 15:21] VITALS: BP 168/73
[2024-10-27 17:22] LABS: Glucose - Point of Care 173 mg/dl (70-99)
[2024-10-27] MEDS: NOVOLOG FLEXPEN-LOW RESISTANCE 1 UNITS SC (18:42)
[2024-10-27 20:22] VITALS: BP 152/70
[2024-10-27] MEDS: TYLENOL 650 MG PO (21:06)
[2024-10-27 21:38] LABS: Glucose - Point of Care 157 mg/dl (70-99)
[2024-10-27] MEDS: LANTUS SC (21:43)
[2024-10-28] VITALS (12 sets, daily range): BP systolic 141–192; BP diastolic 49–77
[2024-10-28] MEDS: NOVOLOG FLEXPEN-LOW RESISTANCE SC ×5 (00:45→23:12)
[2024-10-28 06:17] LABS: Glucose - Point of Care 152 mg/dl (70-99)
[2024-10-28 08:15] LABS: % Basophils 1.2 % (0-2); % Eosinophils 3.3 % (0-6); % Immature Granulocytes 0.6 % (0-0.5); % Lymphocytes 14.9 % (20.5-51.1); % Monocytes 9.1 % (1.7-9.3); % Neutrophils 70.9 % (42.2-75.2); Absolute Basophils 0.1 10^3/uL (0-0.2); Absolute Eosinophils 0.4 10^3/uL (0-0.7); Absolute Immature Granulocytes 0.1 10^3/uL (0-0.05); Absolute Lymphocytes 1.6 10^3/uL (1.2-3.4); Absolute Neutrophils 7.7 10^3/uL (1.4-6.5); Hematocrit 35.9 % (37.0-47.0); Hemoglobin 10.9 g/dL (12.0-16.0); Mean Corp Hgb Conc. 30.4 g/dL (33.0-37.0); Mean Corpuscular Hgb 26.5 pg (27.0-31.0); Mean Corpuscular Volume 87.1 fL (81.0-99.0); Mean Platelet Volume 9.4 fL (7.4-10.4); Nucleated Red Blood Cells % 0 %; Platelet Count 379 10^3/uL (130-400); Red Blood Cell Count 4.12 10^6/uL (4.20-5.40); Red Cell Dist. Width 20.3 % (11.5-14.5); White Blood Cell Count 10.9 10^3/uL (4.8-10.8)
[2024-10-28 08:38] LABS: ALT (SGPT) 10 U/L (0-35); AST (SGOT) 32 U/L (14-36); Albumin 3.8 g/dl (3.5-5.0); Alkaline Phosphatase 455 U/L (38-126); Blood Urea Nitrogen 24 mg/dl (7-17); Calcium 8.7 mg/dl (8.4-10.2); Carbon Dioxide 27 mmol/L (22-30); Chloride 100 mmol/L (98-107); Estimated Creatinine Clearance 22 ml/min; Glucose 147 mg/dl (70-99); Potassium 3.7 mmol/L (3.5-5.1); Sodium 140 mmol/L (135-145); Total Bilirubin 1.1 mg/dl (0.2-1.3); Total Protein 8.2 g/dl (6.3-8.2); eGFR 18.48
[2024-10-28] MEDS: FLEXBUMIN 25% FOR HEMODIALYSIS 12.5 GRAMS IV ×2 (09:14→10:12)
[2024-10-28] MEDS: MANNITOL 25% 12.5 GRAMS IV ×2 (09:14→10:12)
[2024-10-28] MEDS: MUCINEX 600 MG PO (09:22)
[2024-10-28] MEDS: VISBIOME 1 CAP PO (09:22)
[2024-10-28] MEDS: ASPIR LOW (ENTERIC COATED) PO (09:29)
--- NOTE | 2024-10-28 09:29 | W.PN.NEPH.HD ---
Assessment
-
Patient seen on dialysis
Systolic blood pressure stable with current UF
For BKA following dialysis treatment
Next dialysis will be scheduled for Thursday unless there are significant postoperative complication
Progress Note - Hemodialysis
-
Date of Service: October 28, 2024
Duration: 30 minutes and 3 hours
Potassium Bath: 3
Calcium Bath: 2.5
Opti-Dialyzer: 160
Ultrafiltration: Other (3 kg)
Blood Flow: 400
Dialysate Flow: 600
Heparin: None
EPO: None
[2024-10-28] MEDS: PLAVIX PO (09:30)
[2024-10-28] MEDS: HEPARIN SC (09:30)
[2024-10-28] MEDS: HYDROPHOR TOPICAL (09:30)
[2024-10-28] MEDS: SANTYL OINTMENT TOPICAL (09:31)
[2024-10-28] MEDS: TYLENOL 650 MG PO (09:36)
[2024-10-28] MEDS: NOVOLOG FLEXPEN SC ×3 (10:04→19:18)
[2024-10-28 10:51] LABS: Hepatitis B Surface Antigen Negative (Negative)
[2024-10-28 11:45] LABS: Glucose - Point of Care 80 mg/dl (70-99)
--- NOTE | 2024-10-28 13:51 | W.PN.HOSP.TC ---
Today's Communication/Plan
-
BKA today after dialysis
Assessment / Plan
Assessment / Plan
49 year old female presenting with extreme fatigue s/p Dialysis
#Pica Disorder
- patient endorses a compulsion to eat matches. She states she has been doing so since she was young, and that during times of stress she may consume as many as 100 matches per day.
- Matches contain potassium chlorate, sulfur, glue, red phosphorus, ammonium phosphate and paraffin, all of which are at the very least nephrotoxic
- Psych consulted; nephro aware.
- Psych rec. antidepressants but patient not receptive to the idea at this time
#Cough
- persistent cough since 10/22, productive of sputum. Initially patient did not want mucinex, but now is agreeable to it. She was also on tessalon perles which she says offer some improvement.
- most likely related to fluid status, however she has mild leukocytosis today at 11.3
- CXR showing possible pneumothorax, favor skin fold. Repeat CXR w/ 2 views confirms no pneumo.
- c/w mucinex
#Likely Nonischemic Myocardial Injury
#Elevated troponins (resolved)
- chest pain and pressure, troponinemia, ECG showing sinus rhythm with PACs
- trops peaked
- Echo this admission with worsening RV function compared to December 2023
- Pt refusing heart cath
- Nuclear stress test -- no perfusion defect seen
#R Dorsal Foot Wound
#H/o R metatarsal amputation
#H/o osteomyelitis
- nonhealing open wound on dorsum of R foot
- Patient to go for BKA today
(Would like to go to [facility] after surgery)
#Acute Exacerbation of HFpEF
- Last Echo 12/2023 showing EF 65-70%, multivalvular disease, elevated PASP 60-65mmHg and Stage II diastolic dysfunction
- repeat Echo showing 75%EF, flattening of septum consistent w/ elevated RV volume, moderate , Mod. AR, Mod. TR. PASP decreased to 30-35mmHg. RV function is worse on today's echo when compared to prior 12/2023.
- clinical signs of acute on chronic volume overload
- was on 2L NC, intermittently requiring, more so at night
- c/w Coreg, Bumex, dialysis w/ ultrafiltration per Nephro
#Acute on Chronic Extreme Fatigue
#Depression
- patient is ESRD on dialysis w/ heart failure, suspect mostly nutritional deficiency and chronic illness, however concern for concurrent depression
- Psych consulted, rec. antidepressants but patient not receptive to the idea at this time
#ESRD (on dialysis MWF)
#Hyperkalemia
- R sided tunnelled dialysis cath. last received 10/18/2024
- Is on Bumex POA, patient states she makes urine
- nephro following; appreciate recs
- c/w dialysis per nephro w/ extra fluid removal
#Multiple acute on chronic non-healing ulcers of various stages
#R heel with blistering and suspected stage 3 Pressure Injury
- non-toxic at this time
- wound care following, c/w dressings and ointment
CHRONIC STABLE
#Anemia, likely secondary to chronic disease and ESRD
- hgb at baseline, no signs of active bleeding
- given one dose EPO
- transfuse to keep hgb >7
#IDDM Type I (correction, further chart review reveals Type I, prior documentation by me says Type II; it is Type I).
- h/o of poorly controlled Type I DM, prior A1Cs seem to be around 9-11%
- repeat A1C% this admission 9.0%
- c/w 3U long acting QHS and 2U AC
- POC glucose checks
- c/w statin
#h/o CVA - c/w aspirin/plavix
#h/o Paroxysmal SVT
#H/o Guillain-[place] syndrome
#chronic hearing loss, secondary to diabetic neuropathy
Regular Diet
DVT Ppx: Heparin SC
Code Status: Full Code
Anticipated Discharge: > 48 hours
Subjective/Interval History
-
Date of Service: October 28, 2024
No acute complaints this morning. No overnight events.
Objective Data
-
Labs:
Laboratory Results
10/28/24
07:25
WBC 10.9 H
Hgb 10.9 L
Hct 35.9 L
Plt Count 379
Sodium 140
Potassium 3.7
Chloride 100
Carbon Dioxide 27
BUN 24 H
Creatinine 3.0 H
Glucose 147 H
Calcium 8.7
Total Bilirubin 1.1
AST 32
ALT 10
Alkaline Phosphatase 455 H
Vital Signs:
Vital Signs
Temp Pulse Resp BP Pulse Ox
99.3 F 83 16 145/68 100
10/28/24 11:13 10/28/24 11:13 10/28/24 11:13 10/28/24 11:13 10/28/24 11:13
I&O
10/27/24 10/28/24 10/29/24
06:59 06:59 06:59
Intake Total 1520 / 1520 480 / 480
Balance 1520 / 1520 480 / 480
Review of Systems
-
History Source: Patient
Constitutional: Reports No Symptoms
EENT: Reports No Symptoms Reported
Respiratory: Reports No Symptoms
Cardiac: Reports No Symptoms
Abdomen/GI: Reports No Symptoms
Genitourinary: Reports No Symptoms
Musculoskeletal: Reports No Symptoms
Psych: Reports Anxious
Physical Exam
-
General: No Apparent Distress and Appears Chronically Ill
HEENT: Normocephalic, Atraumatic, Moist Mucous Membranes, Anicteric, [place] Conjunctivae, Nose Appears Normal, Ears Appear Normal and Oxygen
Respiratory: Clear to Auscultation; Negative Wheezes
Cardiac: Regular Rhythm, S1/S2 and Murmur; Negative Rub
GI: Soft, Nontender, Nondistended and Normal Bowel Sounds
Musculoskeletal: No Clubbing, No Cyanosis, Edema, Right Lower Extrem and Edema, Left Lower Extrem
Skin: Warm, Dry and IV Access / Catheter Site
Neuro: Awake, Alert and Oriented
[2024-10-28 13:57] LABS: Glucose - Point of Care 82 mg/dl (70-99)
[2024-10-28] MEDS: BACTROBAN 2% OINTMENT 1 APPLIC NASAL (16:17)
[2024-10-28] MEDS: PERIDEX 0.12% ORAL RINSE 15 ML PO (16:17)
[2024-10-28] MEDS: COREG 3.125 MG PO ×2 (16:22→21:35)
[2024-10-28 18:02] LABS: Glucose - Point of Care 74 mg/dl (70-99)
--- NOTE | 2024-10-28 18:29 | OR.RPT ---
Operative Report
Operative Report
Date of Operation: 10/28/2024
Pre Op Diagnosis:
1. [place] artery atherosclerosis with chronic nonhealing right foot wounds and gangrene
2. End-stage renal disease requiring hemodialysis
3. Poorly controlled diabetes with [place] artery atherosclerosis
Post Op Diagnosis:
1. [place] artery atherosclerosis with chronic nonhealing right foot wounds and gangrene
2. End-stage renal disease requiring hemodialysis
3. Poorly controlled diabetes with [place] artery atherosclerosis
Procedure: Right lower extremity amputation below the knee
Surgeon: Memo Whitmore III, MD
Procurement Clerk: NILDA Willett (assisted in all portions of the procedure dictated here)
Anesthesia: General
Complications: None
Estimated Blood Loss: 100 cc
History and Indications for Procedure: 49-year-old female with chronic nonhealing right foot wounds and associated gangrene. Despite multiple attempts at revascularization her wounds progressed and amputation was recommended
Procedure in Detail: [place]a [place] was correctly identified and placed supine on the operating table. After adequate induction of anesthesia the right leg was prepped and draped in the usual sterile fashion. A timeout procedure was
performed with the nursing and anesthesia staff confirming the patient's identity as well as the nature and laterality of the procedure. A transverse incision was made approximately 1 hands-breadth below the tibial tuberosity and carried medially
and laterally to the detention points on the calf. The incision was then turned along the long axis of the calf and carried down towards the ankle to create the posterior flap. Electrocautery was used on the subcutaneous tissue and muscle of the
anterior and lateral tissue. The anterior tibial artery and vein were identified and then ligated and divided between ties. The tibia and fibula were each circumferentially exposed. A periosteal elevator was used on each to elevate the periosteum
more proximally. The tibia was then divided with a saw. The anterior surface was beveled and smoothed with the saw and a rasp. The fibula was then divided more proximally than the tibia and all edges were smoothed with the assistance of a rasp. The
amputation was then completed along the posterior flap. The leg was then passed off to the back table to be sent to pathology. Hemostasis was achieved along the posterior flap using a combination of electrocautery and interrupted silk suture
ligatures. Once hemostasis was achieved the wound was irrigated with warm saline solution. The wound was then closed in multiple layers. Sterile dressings were applied.
The patient tolerated the procedure well and was taken to the PACU in stable condition.
Attestation: I was present and responsible for the entire procedure
Signed:
Memo Whitmore III, MD
Vascular Surgery
[facility]
[2024-10-28 18:42] LABS: Glucose - Point of Care 62 mg/dl (70-99)
[2024-10-28 18:54] LABS: Glucose - Point of Care 123 mg/dl (70-99)
[2024-10-28] MEDS: PRECEDEX 100 IV (19:25)
[2024-10-28] MEDS: SUBLIMAZE 100 MCG IV (19:26)
[2024-10-28] MEDS: SUBLIMAZE 100 IV (19:27)
[2024-10-28] MEDS: MUCINEX PO (19:51)
[2024-10-28] MEDS: HEPARIN 5000 UNITS SC (20:44)
[2024-10-28] MEDS: SUBLIMAZE 50 MCG IV ×2 (20:44→21:50)
[2024-10-28 21:00] LABS: Hematocrit 34.9 % (37.0-47.0); Hemoglobin 10.9 g/dL (12.0-16.0); Mean Corp Hgb Conc. 31.2 g/dL (33.0-37.0); Mean Corpuscular Hgb 26.3 pg (27.0-31.0); Mean Corpuscular Volume 84.1 fL (81.0-99.0); Mean Platelet Volume 8.6 fL (7.4-10.4); Platelet Count 345 10^3/uL (130-400); Red Blood Cell Count 4.15 10^6/uL (4.20-5.40); Red Cell Dist. Width 19.7 % (11.5-14.5); White Blood Cell Count 10.8 10^3/uL (4.8-10.8)
[2024-10-28 21:06] LABS: Glucose - Point of Care 112 mg/dl (70-99)
[2024-10-28 21:15] LABS: Blood Urea Nitrogen 12 mg/dl (7-17); Calcium 8.9 mg/dl (8.4-10.2); Carbon Dioxide 26 mmol/L (22-30); Chloride 99 mmol/L (98-107); Estimated Creatinine Clearance 39 ml/min; Glucose 115 mg/dl (70-99); Magnesium 1.9 mg/dl (1.6-2.3); Phosphorus 3.2 mg/dl (2.5-4.5); Potassium 3.7 mmol/L (3.5-5.1); Sodium 136 mmol/L (135-145); eGFR 36.53
[2024-10-28] MEDS: APRESOLINE 10 MG IV (21:35)
[2024-10-28 21:54] LABS: B.E. 3.5 mmol/L; HCO3 26.3 mmol/L (21-28); O2 Saturation % 99.8 % (94-98); PCO2 33 mmHg (32-35); PO2 195 mmHg (83-108); pH 7.51 (7.35-7.45)
[2024-10-28 23:05] LABS: Glucose - Point of Care 128 mg/dl (70-99)
[2024-10-28] MEDS: LANTUS 0.03 UNITS SC (23:16)
[2024-10-29] VITALS (51 sets, daily range): BP systolic 85–177; BP diastolic 42–60; BMI 26.5
--- NOTE | 2024-10-29 00:27 | PTCARENOTE ---
Late entry: Pt arrived to ICU room 3371 from OR at approx 1845, s/p R BKA. Received pt intubated, #7.0 ETT 21cm at lip. No drips infusing. R stump wrapped in gerri bandage (outer most dressing), C/D/I. SR with frequent PVCs on monitor. SpO2 100% on
50% FiO2. Fentanyl and Precedex started. Pt able to nod head appropriately, endorses that she has pain to RLE. Fentanyl boluses administered, see EMAR, drip titrated up, see med titration flowsheet for details. OGT placed. Pt hypertensive, order for
PRN hydralazine obtained, see EMAR for administration details. Assessment as documented in nursing shift assessment flowsheet.
0000: assessment unchanged. Hydralazine initially helped pt's BP but it is now starting to trend up again. SR 70s on monitor. SpO2 100% on same vent settings. Remains on Fentanyl and Precedex infusions.
[2024-10-29] MEDS: APRESOLINE 10 MG IV ×2 (01:35→23:13)
[2024-10-29 03:06] LABS: Glucose - Point of Care 141 mg/dl (70-99)
[2024-10-29 04:04] LABS: B.E. -0.4 mmol/L; HCO3 22.6 mmol/L (21-28); PCO2 31 mmHg (32-35); PO2 151 mmHg (83-108); pH 7.47 (7.35-7.45)
[2024-10-29 04:08] LABS: O2 Therapy VENT
[2024-10-29] MEDS: SUBLIMAZE 50 MCG IV ×3 (04:45→14:36)
[2024-10-29 05:11] LABS: % Basophils 0.3 % (0-2); % Immature Granulocytes 0.5 % (0-0.5); % Lymphocytes 10.2 % (20.5-51.1); % Monocytes 1.9 % (1.7-9.3); % Neutrophils 87.1 % (42.2-75.2); Absolute Immature Granulocytes 0.1 10^3/uL (0-0.05); Absolute Lymphocytes 1.3 10^3/uL (1.2-3.4); Absolute Monocytes 0.3 10^3/uL (0.1-0.6); Absolute Neutrophils 11.2 10^3/uL (1.4-6.5); Hematocrit 35.1 % (37.0-47.0); Hemoglobin 11.2 g/dL (12.0-16.0); Mean Corp Hgb Conc. 31.9 g/dL (33.0-37.0); Mean Corpuscular Volume 81.4 fL (81.0-99.0); Mean Platelet Volume 9.1 fL (7.4-10.4); Nucleated Red Blood Cells % 0 %; Platelet Count 377 10^3/uL (130-400); Red Blood Cell Count 4.31 10^6/uL (4.20-5.40); Red Cell Dist. Width 19.4 % (11.5-14.5); White Blood Cell Count 12.8 10^3/uL (4.8-10.8)
[2024-10-29 05:19] LABS: INR 1.18; PT 15.3 Sec (11.4-14.6)
[2024-10-29 05:20] LABS: APTT 36.3 Sec (23.4-35.0)
[2024-10-29 05:33] LABS: ALT (SGPT) < 10 U/L (0-35); AST (SGOT) 21 U/L (14-36); Albumin 3.2 g/dl (3.5-5.0); Alkaline Phosphatase 348 U/L (38-126); Blood Urea Nitrogen 19 mg/dl (7-17); Calcium 9.2 mg/dl (8.4-10.2); Carbon Dioxide 22 mmol/L (22-30); Chloride 101 mmol/L (98-107); Estimated Creatinine Clearance 33 ml/min; Glucose 165 mg/dl (70-99); Magnesium 1.8 mg/dl (1.6-2.3); Potassium 4.5 mmol/L (3.5-5.1); Sodium 136 mmol/L (135-145); Total Bilirubin 1.2 mg/dl (0.2-1.3); Total Protein 7.2 g/dl (6.3-8.2); eGFR 30.06
[2024-10-29] MEDS: SUBLIMAZE 100 IV ×2 (06:02→19:51)
[2024-10-29] MEDS: NOVOLOG FLEXPEN-LOW RESISTANCE SC ×2 (06:09→12:41)
[2024-10-29 06:10] LABS: Glucose - Point of Care 134 mg/dl (70-99)
[2024-10-29] MEDS: PRECEDEX 100 IV ×3 (06:35→23:13)
[2024-10-29] MEDS: COREG 3.125 MG TUBE ×2 (08:05→21:27)
[2024-10-29] MEDS: HEPARIN 5000 UNITS SC (08:05)
[2024-10-29] MEDS: PLAVIX 75 MG TUBE (08:05)
[2024-10-29] MEDS: VENTOLIN NEBULES 2.5 MG INH ×2 (08:41→19:48)
[2024-10-29] MEDS: SODIUM CHLORIDE 3% FOR INHALATION 1 VIAL INH ×2 (08:41→21:28)
[2024-10-29 11:41] LABS: Glucose - Point of Care 148 mg/dl (70-99)
--- NOTE | 2024-10-29 11:43 | PTCARENOTE ---
Clarified with Dr. Hernandez to use the OGT for tube feeds. Also discussed the plan of care with Dr. Jagruti Haq regarding tube feeds and insulin orders. Also asked to have PO meds changed to 'Via Tube'. Pt no longer needs santly to her right foot due to
amputation.
--- NOTE | 2024-10-29 12:21 | W.PN.ANS.POP ---
Anesthesia Post Operative
- Anesthesia Post Op Note
Vital Signs Stable-See Nursing Note: Yes
Airway Patent: Yes (intubated)
Adequate Pain Control: Yes
Change in Mental Status: No (sedated)
Current Postoperative Nausea & Vomiting: No
Anesthesia Complications: No
General Anesthetic Recall: No
Unplanned Admission: No
Post Op Hydration Adequate: Yes (HD)
[2024-10-29] MEDS: SANTYL OINTMENT TOPICAL (12:33)
[2024-10-29] MEDS: NOVOLOG FLEXPEN 2 UNITS SC ×3 (12:41→23:17)
[2024-10-29] MEDS: MUCINEX PO (12:43)
--- NOTE | 2024-10-29 12:45 | W.PN.NEPH.HD ---
Assessment
-
Patient seen for isolated ultrafiltration on ventilator
Fentanyl decreased to support blood pressure during UF
UF cut back from 3 to 2.5 kg as hemodynamically tolerated
Progress Note - Hemodialysis
-
Date of Service: October 29, 2024
Duration: 30 minutes and 3 hours
Opti-Dialyzer: 160
Ultrafiltration: Other (isolated u/f for 2.5 kg)
Blood Flow: 200
[2024-10-29] MEDS: MANNITOL 25% 12.5 GRAMS IV (12:58)
[2024-10-29] MEDS: NOVOLOG FLEXPEN SC ×2 (13:07)
[2024-10-29] MEDS: VISBIOME PO (13:08)
[2024-10-29] MEDS: COREG PO (13:08)
[2024-10-29] MEDS: PLAVIX PO (13:08)
[2024-10-29] MEDS: ASPIR LOW (ENTERIC COATED) PO (13:09)
--- NOTE | 2024-10-29 14:25 | PTCARENOTE ---
pt with her eyes opened and attempting to communicate. She was informed of the events from yesterday up to current time. She nodded her head in understanding. She is aware her son visited and was updated. HD almost complete. Safe environment
maintained. Will continue to monitor.
[2024-10-29] MEDS: LOW STRENGTH ASPIRIN 81 MG TUBE (14:37)
[2024-10-29] MEDS: PREVACID 30 MG TUBE (14:37)
--- NOTE | 2024-10-29 14:49 | W.PN.HOSP.TC ---
Today's Communication/Plan
-
Assessment / Plan
Assessment / Plan
NAD
Scleral Anicteric
MMM
No JVD
Rhonchorous
RRR, S1/S2
Soft, NT, ND, BS+
Warm, Dry
R BKA wrapped
Sedated
Acute hypoxemic respiratory failure requiring mechanical ventilation
Continue vent settings per ICU
Dialyze per nephrology
Daily SAT SBT
GI prophylaxis
Acute on chronic HFpEF exacerbation, NYHA class III-IV, EF 65 to 70%
Volume management with hemodialysis and Bumex Thursday
Continue hemodialysis per nephrology recommended
Cardiology following
ESRD on hemodialysis via right anterior chest wall primary catheter
Hemodialysis per nephrology recommendations
Right dorsal foot wound with findings concerning for osteomyelitis as the foot wound is nonhealing.
Vascular and podiatry both surgical specialties recommending BKA
- Previously was not agreeable with now seems agreeable at this time
Stress test without ischemic evidence
S/p BKA 10/28
Anticipated Discharge: > 48 hours
Subjective/Interval History
-
Date of Service: October 29, 2024
Seen and examined. Was unable to extubate as noted junky secretions once the ET tube was placed and was noted to have an SpO2 of 50% prior to intubation
BKA of right lower extremity was completed successfully without estimated blood loss of 100 cc
Objective Data
-
Labs:
Laboratory Results
10/29/24 10/29/24 10/29/24
03:39 04:36 05:00
WBC 12.8 H
Hgb 11.2 L
Hct 35.1 L
Plt Count 377
PT 15.3 H
INR 1.18
APTT 36.3 H
HCO3 22.6
Sodium 136
Potassium 4.5
Chloride 101
Carbon Dioxide 22
BUN 19 H
Creatinine 2.0 H
Glucose 165 H
Calcium 9.2
Total Bilirubin 1.2
AST 21
ALT < 10
Alkaline Phosphatase 348 H
Vital Signs:
Vital Signs
Temp Pulse Resp BP Pulse Ox
98.1 F 79 16 148/55 100
10/29/24 11:20 10/29/24 12:00 10/29/24 12:00 10/29/24 12:00 10/29/24 12:00
I&O
10/28/24 10/29/24 10/30/24
06:59 06:59 06:59
Intake Total 480 / 480 230.4 / 251.7 207.8 / 207.8
Output Total 0 / 0
Balance 480 / 480 230.4 / 251.7 207.8 / 207.8
[2024-10-29] MEDS: HEPARIN 3700 UNITS INTRACATH (15:11)
--- NOTE | 2024-10-29 15:33 | CON.INTV ---
Consultation
Consultation Request
Date/Time Consultation Requested: 10/28/2024
Date/Time Consultation Performed: 10/29/2024
Requesting Provider: Kamaljit Haq
Performing Provider: Alexys Hernandez
Reason for Consultation: Respiratory failure
Medical History
-
Chief Complaint: Shortness of breath
History of Present Illness:
The patient is a 49-year-old female with complicated past medical history who originally was admitted to the hospital about 11 days ago on 10/18, she presented essentially with increased confusion and lethargy at home. On arrival in the emergency
room she was noted to be hyperkalemic was treated emergently with calcium gluconate in the emergency room. Patient was subsequently admitted to the hospital for encephalopathy and was started on broad-spectrum antibiotics. Patient also has known
history of multiple infected diabetic foot and infections and ulcerations status post multiple right foot debridements over the last 1 year. She was treated with IV antibiotics for concern of infected ulcers. Subsequently vascular surgery service
was consulted as she had prior history of endovascular interventions for poor healing right foot wounds. Vascular surgery recommended
Below the knee amputation considering multiple previous interventions with continued poor healing diabetic infected ulcers. Patient subsequently had a nuclear stress test which was negative for any cardiac ischemia.
On , patient was taken to the OR for right lower extremity amputation below the knee. Patient however was not extubated postsurgery due to bilateral significant rhonchi and increased secretions and increased oxygen requirement. She was
transferred to ICU for further management.
Dialysis Biomed Technician consultation was requested for further input.
Past Medical History: Reports Other
Additional Past Medical History:
Type 2 diabetes
Hypertension
Dyslipidemia
Arthropathy
Paresthesia
Anthology of
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
Diastolic CHF
Past Surgical History: Reports Other
Additional Past Surgical History:
Open heart surgery
Right eye surgery
Social History
Unable to obtain full social history at this time due to: Acuity
Family History
Family History: Not pertinent
Allergies / Home Medications
Allergies / Home Medications
Allergies
Allergy/AdvReac Type Severity Reaction Status Date / Time
latex Allergy Hives Verified 07/04/24 11:33
Home Medications
�Medication �Instructions �Recorded �Confirmed �Last Taken �Type
aspirin 81 mg tablet,delayed 81 mg PO DAILY Blood Clot 05/04/23 10/18/24 08/09/24 Rx
release Prevention/Tx #30 tabs
Lactobac no.2-Bifidobac no.1-S. 1 cap PO DAILY probiotic 02/15/24 10/18/24 08/09/24 History
thermo 112.5 billion cell capsule
(Visbiome)
ergocalciferol (vitamin D2) 1,250 1,250 mcg PO HANSON Supplement 02/15/24 10/18/24 08/07/24 History
mcg (50,000 unit) capsule
acetaminophen 325 mg tablet 650 mg PO Q6HPRN PRN mild pain 08/10/24 10/18/24 08/09/24 History
(Tylenol)
insulin aspart U-100 100 unit/mL 1 sliding scale dose SC TIDPRN PRN 08/10/24 10/18/24 Unknown History
(3 mL) subcutaneous pen (Novolog high blood sugar
FlexPen U-100 Insulin aspart)
loperamide 2 mg tablet 2 mg PO DAILYPRN PRN diarrhea 08/10/24 10/18/24 Unknown History
atorvastatin 40 mg tablet 80 mg (2 x 40 mg) PO QPM High 08/18/24 10/18/24 Unknown Rx
Cholesterol #30 tabs
carvedilol 3.125 mg tablet (Coreg) 3.125 mg PO BID Blood Pressure #60 08/18/24 10/18/24 Unknown Rx
tabs
clopidogrel 75 mg tablet 75 mg PO DAILY Blood clot 08/18/24 10/18/24 Unknown Rx
prevention/tx #30 tabs
insulin aspart U-100 100 unit/mL 2 unit (0.02 mL) SC AC #5 ea 08/18/24 10/18/24 Unknown Rx
(3 mL) subcutaneous pen (Novolog
FlexPen U-100 Insulin aspart)
insulin glargine 100 unit/mL (3 3 unit (0.03 mL) SC HS #5 ea 08/18/24 10/18/24 Unknown Rx
mL) subcutaneous pen (Lantus
Solostar U-100 Insulin)
bumetanide 2 mg tablet 2 mg PO DIRECTED Fluid 10/18/24 10/18/24 Unknown History
Retention/Swelling
Review of Systems
-
Unable to Obtain full review of systems at this time due to: Patient Intubation
Vitals / Labs / Diagnostic Testing
Vital Signs
Temp Pulse Resp BP Pulse Ox
98.1 F 79 16 148/55 100
10/29/24 11:20 10/29/24 12:00 10/29/24 12:00 10/29/24 12:00 10/29/24 12:00
Lab Data
10/29/24 05:00
10/29/24 05:00
Laboratory Results
10/28/24 10/29/24 10/29/24
21:49 03:39 04:36
PT 15.3 H
INR 1.18
APTT 36.3 H
pH 7.51 H 7.47 H
pCO2 33 31 L
pO2 195 H 151 H
HCO3 26.3 22.6
O2 Delivery Level Vent
Diagnostic Testing:
Physical Exam
-
HEENT: Normocephalic
Cardiovascular: S1/S2
Respiratory: Rales and Non-Labored Respirations
GI: Soft and Non Distended
Neurology: Other (Sedated on mechanical ventilator)
Skin: Warm
General: Comfortable
Assessment
-
# Acute hypoxic respiratory failure, currently on mechanical ventilation. Related to volume overload as well as thick copious secretions.
-Continue volume assist-control, 400/16/40% with a PEEP of 5, saturating 100%. Blood gas 7.47, 31, 151. Currently currently on sedation with Precedex 0.6 as well as fentanyl 100.
-Nephrology service on case, plan for ultrafiltration today with additional volume removal
-Follow-up chest x-ray and ABG in a.m., anticipate extubation in the next 24 to 48 hours
-Start 3% normal saline nebulizer along with albuterol twice daily to help with thick secretions
# Acute on chronic HFpEF exacerbation, NYHA class III-IV, EF 65 to 70%
-Concomitant aortic stenosis also likely contributing
-Continue to remove volume as tolerated
# Moderate aortic stenosis, valve area 1.1 cm�
- Continue to monitor, follow-up with cardiology service
- Avoid aggressive afterload reduction
- Currently currently on Coreg, 3.125 mg p.o. twice daily
# Pulmonary hypertension, PA pressure 30-35mm with mild tricuspid regurgitation.(Improved from 60-65 on previous echocardiogram)
-Group II due to volume overload. RHC 12/2023, mPA 54, PCWP 47, CI 2.59, PVR 1.5. Severely elevated filling pressures with severe postcapillary pulmonary hypertension.
- Continue to remove volume with dialysis as tolerated
# ESRD on hemodialysis, Right upper chest permacath in place
- Hemodialysis per nephrology recommendations
# Peripheral vascular disease with recurrent diabetic foot ulcers with infection with failed revascularization attempts with stents
- S/p AKA, 10/28
- Vascular surgery service on case
- Currently on aspirin and Plavix. Continue high-dose atorvastatin.
Other co-morbidities:
-Pica syndrome. Eats matches, psychiatry service on case
-Type 1 diabetes
-chronic anemia
-Paroxysmal SVT
-Iron deficiency anemia
-History of CVA
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
DVT prophylaxis with subcu heparin
GI prophylaxis with pantoprazole
Start tube feeding per life manager service
Critical Care time 70 mins -- The patient is admitted for acute critical illness for the treatment of vital organ failure and/or prevention of further life-threatening conditions. Total care includes time spent in review of history, physical exam,
medications, hemodynamic/ventilator parameters, laboratory data, imaging and discussion with house staff, pharmacy, respiratory therapy, rotary surface grinder, and nursing.
Data:
CXR 10/2024: Mild pulmonary edema, fluid in the fissure on the right side
CT Chest 10/2024: 1. No evidence of central, lobar or segmental pulmonary embolism.
2. Small bilateral pleural effusions, more pronounced on the right with adjacent atelectasis. Findings of mild pulmonary edema.
3. Cardiomegaly. The right dual-lumen central venous catheter tip terminates in the inferior right atrium with the second tip terminating in the inferior vena cava.
Nuclear stress test 10/2024: Normal Lexiscan nuclear stress test, no perfusion defect seen.
ECHO 10/2024: Left ventricle is small in size with mild concentric left ventricular hypertrophy.
Hyperdynamic left ventricular systolic function. LVEF 75%.
Likely elevated LV filling pressures.
Enlarged right ventricle with reduced systolic function. Septal flattening consistent with elevated RV volume/pressure overload.
Moderate aortic stenosis (44/28 mmHg, 1.1 cm2 by continuity equation, planimetry 1.45 cm2).
Moderate aortic regurgitation.
Mild tricuspid regurgitation. PASP 30-35 mmHg.
Compared to prior echocardiogram in December 2023, RV function is worse on today's
study. Aortic valve gradients are stable. PASP has decreased from 60-65 mmHg
to 30-35 mmHg.
--- NOTE | 2024-10-29 16:11 | W.PN.VS ---
Today's Communication / Plan
-
See plan below for today 10/29/2024.
Assessment/Plan
-
Postoperative day #1 right BKA.
� Vent weaning/respiratory management per ICU/pulmonary.
� Continue dressing right lower extremity. Will remove dressing tomorrow or day after.
-
Total Time Spent with Patient (in minutes): 7
Subjective Data
-
Date of Service: October 29, 2024
Remains intubated/sedated.
Objective Data
-
Vital Signs
Temp Pulse Resp BP Pulse Ox
98.1 F 79 16 148/55 100
10/29/24 11:20 10/29/24 12:00 10/29/24 12:00 10/29/24 12:00 10/29/24 15:40
Intake and Output
10/28/24 10/29/24 10/30/24
06:59 06:59 06:59
Intake Total 480 / 480 230.4 / 251.7 340.4 / 340.4
Output Total 0 / 0
Balance 480 / 480 230.4 / 251.7 340.4 / 340.4
Intake:
Oral fluids 480 / 480
IV fluids (Total) 170.4 / 191.7 160.4 / 160.4
Fentanyl 95.0 / 105.0 70 / 70
Precedex 75.4 / 86.7 90.4 / 90.4
Tube feeding 60 / 60
Feeding tube flush amount 60 / 60
Amount instilled into GI Tube ( 60 / 60 60 / 60
Total)
[place] Sump 60 / 60 60 / 60
Output:
Urine, Voided 0 / 0
Other:
Number of approximated LARGE 1
amounts of urine
Lab Results
10/29/24 05:00
10/29/24 05:00
Calcium 9.2 mg/dl (8.4-10.2) 10/29/24 05:00
Phosphorus 3.2 mg/dl (2.5-4.5) 10/28/24 20:53
Magnesium 1.8 mg/dl (1.6-2.3) 10/29/24 05:00
Total Bilirubin 1.2 mg/dl (0.2-1.3) 10/29/24 05:00
Direct Bilirubin Cancelled 10/29/24 06:00
AST 21 U/L (14-36) 10/29/24 05:00
ALT < 10 U/L (0-35) 10/29/24 05:00
Alkaline Phosphatase 348 U/L (38-126) H 10/29/24 05:00
Total Protein 7.2 g/dl (6.3-8.2) 10/29/24 05:00
Albumin 3.2 g/dl (3.5-5.0) L 10/29/24 05:00
Physical Exam
-
Afebrile.
Intubated/sedated.
Right lower extremity BKA dressing is clean dry and intact. No unexpected swelling.
[2024-10-29 17:48] LABS: Glucose - Point of Care 189 mg/dl (70-99)
[2024-10-29] MEDS: HYDROPHOR 1 APPLIC TOPICAL (17:49)
[2024-10-29] MEDS: NOVOLOG FLEXPEN-LOW RESISTANCE 1 UNITS SC (17:50)
[2024-10-29] MEDS: HEPARIN SC ×2 (21:27→21:39)
[2024-10-29] MEDS: LANTUS 0.03 UNITS SC (21:28)
[2024-10-29 21:32] LABS: Glucose - Point of Care 217 mg/dl (70-99)
--- NOTE | 2024-10-29 22:39 | PTCARENOTE ---
Assumed care of pt at 1900. Received pt intubated, #7.0 ETT 24cm at lip, AC 16/400/40/5, sedated on Precedex and Fentanyl drips. Pt easily awakens and will stay awake, is able to follow commands and communicate through writing. Pt will become
anxious, will attempt to mouth words, will attempt to refuse certain aspects of care. Remains restrained at this time. Physical assessment as documented in nursing shift assessment flowsheet. SR 70s on monitor with frequent PACs. SpO2 100% on
current vent settings. Pt sleeping in btwn care, is insistent on bright overhead lights remaining on in the room.
[2024-10-29] MEDS: NOVOLOG FLEXPEN-LOW RESISTANCE 2 UNITS SC (23:17)
[2024-10-29 23:19] LABS: Glucose - Point of Care 227 mg/dl (70-99)
[2024-10-30] VITALS (24 sets, daily range): BP systolic 103–163; BP diastolic 36–53; BMI 26.0
[2024-10-30] MEDS: SUBLIMAZE 50 MCG IV (00:36)
--- NOTE | 2024-10-30 00:46 | PTCARENOTE ---
Assessment unchanged. Pt has had sustained periods of awakening, continues to attempt to write, becomes frustrated when her writing cannot be understood. Some of her writing can be deciphered and pt seems to be concerned about insulin coverage, was
upset that I took out a leaky IV, writing 'they put one in before surgery', as if she did not want another IV (I told her I was not inserting another one right now). Pt had refused her heparin earlier. She has made multiple attempts to dictate her
care/refuse things with writing, attempting to mouth words, and attempting to push my hands away. Sedation increased according to RASS/CPOT scores when appropriate. Educated patient about the reason for the heparin and she still refused. Educated
patient that her blood sugar is high (>200) and insulin coverage is needed, she wrote 'I'm worse here', I explained that it is normal for patients in the hospital to have higher/worse blood sugars than at home because of the stress their body is
under, and that we need to keep tight glucose control especially since she just had surgery, explained that it is possible that she may end up on an insulin drip and need Q1 hour blood sugar checks if we cannot get her sugars controlled so for now
it would advisable to accept the SQ insulin coverage (she accepted it). Pt's BP elevated >160 systolic, medicated with PRN Hydralazine, see EMAR. Remains on Precedex and Fentanyl. SR 80s with frequent PACs. Remains on same vent settings with SpO2
100%.
[2024-10-30 03:56] LABS: B.E. -1.8 mmol/L; HCO3 21.5 mmol/L (21-28); O2 Saturation % 99.9 % (94-98); PCO2 31 mmHg (32-35); PO2 136 mmHg (83-108); pH 7.45 (7.35-7.45)
[2024-10-30 04:19] LABS: % Basophils 0.8 % (0-2); % Eosinophils 0.5 % (0-6); % Immature Granulocytes 0.5 % (0-0.5); % Lymphocytes 14.6 % (20.5-51.1); % Monocytes 9.6 % (1.7-9.3); Absolute Basophils 0.1 10^3/uL (0-0.2); Absolute Eosinophils 0.1 10^3/uL (0-0.7); Absolute Immature Granulocytes 0.1 10^3/uL (0-0.05); Absolute Lymphocytes 1.8 10^3/uL (1.2-3.4); Absolute Monocytes 1.2 10^3/uL (0.1-0.6); Absolute Neutrophils 8.9 10^3/uL (1.4-6.5); Hematocrit 31.6 % (37.0-47.0); Hemoglobin 10.4 g/dL (12.0-16.0); Mean Corp Hgb Conc. 32.9 g/dL (33.0-37.0); Mean Corpuscular Hgb 26.2 pg (27.0-31.0); Mean Corpuscular Volume 79.6 fL (81.0-99.0); Nucleated Red Blood Cells % 0 %; Platelet Count 391 10^3/uL (130-400); Red Blood Cell Count 3.97 10^6/uL (4.20-5.40); Red Cell Dist. Width 19.1 % (11.5-14.5)
--- NOTE | 2024-10-30 04:38 | PTCARENOTE ---
Assessment unchanged. CHG cloth bath done, linens and gown changed. Remains on Precedex and Fentanyl drips.
[2024-10-30 04:45] LABS: ALT (SGPT) < 10 U/L (0-35); AST (SGOT) 23 U/L (14-36); Albumin 3.1 g/dl (3.5-5.0); Alkaline Phosphatase 279 U/L (38-126); Blood Urea Nitrogen 33 mg/dl (7-17); Calcium 8.9 mg/dl (8.4-10.2); Carbon Dioxide 22 mmol/L (22-30); Chloride 98 mmol/L (98-107); Estimated Creatinine Clearance 22 ml/min; Glucose 283 mg/dl (70-99); Potassium 4.9 mmol/L (3.5-5.1); Sodium 134 mmol/L (135-145); Total Bilirubin 1.1 mg/dl (0.2-1.3); eGFR 21.94
[2024-10-30] MEDS: PRECEDEX 100 IV (06:21)
[2024-10-30 06:25] LABS: Glucose - Point of Care 255 mg/dl (70-99)
[2024-10-30] MEDS: NOVOLOG FLEXPEN-LOW RESISTANCE 3 UNITS SC (06:25)
[2024-10-30] MEDS: NOVOLOG FLEXPEN 2 UNITS SC ×3 (06:25→17:36)
[2024-10-30] MEDS: VENTOLIN NEBULES 2.5 MG INH (07:20)
[2024-10-30] MEDS: SODIUM CHLORIDE 3% FOR INHALATION 1 VIAL INH (07:20)
--- NOTE | 2024-10-30 08:01 | W.PN.NEPH.PH ---
Today's Communication / Plan
-
Dialysis tomorrow
Assessment/Plan
-
48-year-old female past medical history of right diabetic foot infection status post fifth toe amputation, peripheral arterial disease, ESRD on hemodialysis Thursday [facility] [address] [place] [address]
Impression:
ESRD
Thursday
Hyperkalemia
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
recent diabetic foot infection of right lateral foot possible osteomyelitis status post angiogram with stent placement on 07/08/2024
History of right diabetic foot infection status post fifth toe amputation on 12/06 and revision fourth toe amputation on 12/13
Peripheral arterial disease status post diagnostic arteriogram, intravascular lithotripsy of the posterior tibial artery and proximal SFA, balloon angioplasty and nitroglycerin injection of posterior tibial artery on 12/21/23
Chronic transaminitis
Type 1 diabetes
ESRD on hemodialysis Thursday and Thursday (stopped two months prior)
Chronic HFpEF
chronic anemia
Moderate aortic stenosis/aortic regurgitation
Mild to moderate mitral stenosis
Paroxysmal SVT
Iron deficiency anemia
History of CVA
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
PLan:
received u/f treatment yesterday
Chest x-ray reviewed from this a.m. mild interstitial edema
Continue dialysis Thursday
orders provided
remains intubated with stable bp post operatively following BKA on 10/28/24
Epogen as indicated for hemoglobin less than 10
remains on tube feeds
-
-
Date of Service: October 30, 2024
CC / HPI / ROS
-
Chief Complaint:
Presents with
Confusion altered mental status difficulty hearing
History of Present Illness:
ESRD Thursday volume overloaded chronic foot infection
wt is decreasing
Bp stable
Remains intubated
Review of Systems:
Intubated
No fever
Labs
-
Labs:
WBC 12.0 10^3/uL (4.8-10.8) H 10/30/24 04:06
RBC 3.97 10^6/uL (4.20-5.40) L 10/30/24 04:06
Hgb 10.4 g/dL (12.0-16.0) L 10/30/24 04:06
Hct 31.6 % (37.0-47.0) L 10/30/24 04:06
Plt Count 391 10^3/uL (130-400) 10/30/24 04:06
Sodium 134 mmol/L (135-145) L 10/30/24 04:06
Potassium 4.9 mmol/L (3.5-5.1) 10/30/24 04:06
Chloride 98 mmol/L (98-107) 10/30/24 04:06
Carbon Dioxide 22 mmol/L (22-30) 10/30/24 04:06
BUN 33 mg/dl (7-17) H 10/30/24 04:06
Creatinine 2.6 mg/dL (0.6-1.0) H 10/30/24 04:06
eGFR 21.94 10/30/24 04:06
Glucose 283 mg/dl (70-99) H 10/30/24 04:06
Calcium 8.9 mg/dl (8.4-10.2) 10/30/24 04:06
Phosphorus 3.2 mg/dl (2.5-4.5) 10/28/24 20:53
Albumin 3.1 g/dl (3.5-5.0) L 10/30/24 04:06
Physical Exam
-
Vital Signs:
Vital Signs
Temp Pulse Resp BP Pulse Ox
98.1 F 76 16 163/53 100
10/30/24 07:36 10/30/24 07:22 10/30/24 07:22 10/30/24 06:00 10/30/24 07:22
Cardiovascular:: Regular rate and rhythm
Respiratory:: Bilateral: Coarse
Lung Excursion:: Normal
Abdomen:: Nontender and Soft
Bowel Sounds:: Normal
Extremity Edema:: +1: Bilateral: and None: Right: (BKA)
[2024-10-30] MEDS: PREVACID 30 MG TUBE (08:30)
[2024-10-30] MEDS: LOW STRENGTH ASPIRIN 81 MG TUBE (08:30)
[2024-10-30] MEDS: PLAVIX 75 MG TUBE (08:30)
[2024-10-30] MEDS: VISBIOME 1 CAP TUBE (08:30)
[2024-10-30] MEDS: HEPARIN 5000 UNITS SC (08:31)
[2024-10-30] MEDS: BUMEX 2 MG TUBE (08:34)
[2024-10-30] MEDS: COREG 3.125 MG TUBE ×2 (08:34→19:52)
--- NOTE | 2024-10-30 09:08 | W.PN.INTV ---
Addendum entered and electronically signed by Alexys Hernandez MD 10/30/24 16:49:
-Patient successfully extubated. Doing well on nasal cannula
-Stable for transfer to telemetry unit
-Visual Training Aide service will sign off, please call as needed.
Original Note:
Today's Communication / Plan
Recommendations
- Wean sedation, SAT SBT today
- Hold tube feedings in anticipation of extubation
Assessment
-
The patient is a 49-year-old female with complicated past medical history who originally was admitted to the hospital about 11 days ago on 10/18, she presented essentially with increased confusion and lethargy at home. On arrival in the emergency
room she was noted to be hyperkalemic was treated emergently with calcium gluconate in the emergency room. Patient was subsequently admitted to the hospital for encephalopathy and was started on broad-spectrum antibiotics. Patient also has known
history of multiple infected diabetic foot and infections and ulcerations status post multiple right foot debridements over the last 1 year. She was treated with IV antibiotics for concern of infected ulcers. Subsequently vascular surgery service
was consulted as she had prior history of endovascular interventions for poor healing right foot wounds. Vascular surgery recommended
Below the knee amputation considering multiple previous interventions with continued poor healing diabetic infected ulcers. Patient subsequently had a nuclear stress test which was negative for any cardiac ischemia.
On 10/28, patient was taken to the OR for right lower extremity amputation below the knee. Patient however was not extubated postsurgery due to bilateral significant rhonchi and increased secretions and increased oxygen requirement. She was
transferred to ICU for further management.
Visual Training Aide consultation was requested for further input
# Acute hypoxic respiratory failure, currently on mechanical ventilation. Related to volume overload as well as thick copious secretions.
-Currently on volume assist-control, 400/16/40% with a PEEP of 5, saturating 100%. ABG, 7.45, 31, 136. Currently currently on sedation with Precedex 0.6 as well as fentanyl 100.
-Nephrology service on case, s/p additional ultrafiltration on 10/29
- Follow-up chest x-ray improving. SAT SBT today, anticipate extubation later today
- Continue continue 3% normal saline nebulizer along with albuterol twice daily to help with thick secretions
# Acute on chronic HFpEF exacerbation, NYHA class III-IV, EF 65 to 70%
-Concomitant aortic stenosis also likely contributing
-Continue to remove volume as tolerated
# Moderate aortic stenosis, valve area 1.1 cm�
- Continue to monitor, follow-up with cardiology service
- Avoid aggressive afterload reduction
- Currently currently on Coreg, 3.125 mg p.o. twice daily
# Pulmonary hypertension, PA pressure 30-35mm with mild tricuspid regurgitation.(Improved from 60-65 on previous echocardiogram)
-Group II due to volume overload. RHC 12/2023, mPA 54, PCWP 47, CI 2.59, PVR 1.5. Severely elevated filling pressures with severe postcapillary pulmonary hypertension.
-Continue to remove volume with dialysis as tolerated
# ESRD on hemodialysis, Right upper chest permacath in place
- Hemodialysis per nephrology recommendations
# Peripheral vascular disease with recurrent diabetic foot ulcers with infection with failed revascularization attempts with stents
- S/p AKA, 10/28
- Vascular surgery service on case
- Currently on aspirin and Plavix. Continue high-dose atorvastatin.
Other co-morbidities:
-Pica syndrome. Eats matches, psychiatry service on case
-Type 1 diabetes
-chronic anemia
-Paroxysmal SVT
-Iron deficiency anemia
-History of CVA
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
DVT prophylaxis with subcu heparin
GI prophylaxis with pantoprazole
Hold tube feeding in anticipation of extubation today
Critical Care time 45 mins -- The patient is admitted for acute critical illness for the treatment of vital organ failure and/or prevention of further life-threatening conditions. Total care includes time spent in review of history, physical exam,
medications, hemodynamic/ventilator parameters, laboratory data, imaging and discussion with house staff, pharmacy, respiratory therapy, wind energy engineer, and nursing.
Data:
CXR 10/2024: Mild pulmonary edema, fluid in the fissure on the right side
CT Chest 10/2024: 1. No evidence of central, lobar or segmental pulmonary embolism.
2. Small bilateral pleural effusions, more pronounced on the right with adjacent atelectasis. Findings of mild pulmonary edema.
3. Cardiomegaly. The right dual-lumen central venous catheter tip terminates in the inferior right atrium with the second tip terminating in the inferior vena cava.
Nuclear stress test 10/2024: Normal Lexiscan nuclear stress test, no perfusion defect seen.
ECHO 10/2024: Left ventricle is small in size with mild concentric left ventricular hypertrophy.
Hyperdynamic left ventricular systolic function. LVEF 75%.
Likely elevated LV filling pressures.
Enlarged right ventricle with reduced systolic function. Septal flattening consistent with elevated RV volume/pressure overload.
Moderate aortic stenosis (44/28 mmHg, 1.1 cm2 by continuity equation, planimetry 1.45 cm2).
Moderate aortic regurgitation.
Mild tricuspid regurgitation. PASP 30-35 mmHg.
Compared to prior echocardiogram in December 2023, RV function is worse on today's
study. Aortic valve gradients are stable. PASP has decreased from 60-65 mmHg
to 30-35 mmHg.
Subjective Dataa
Subjective Data
Date of Service:
Date of Service: October 30, 2024
Subjective:
Patient currently intubated, mechanically ventilated, sedated, starting to wake up
Review of Systems
General: Unobtainable - Sedation
Genitourinary: Other
Objective Data
Data Reviewed
Vital Signs / I&O / Oxygen:
Vital Signs
Temp Pulse Resp BP Pulse Ox
98.1 F 82 16 111/47 100
10/30/24 07:36 10/30/24 08:34 10/30/24 07:22 10/30/24 08:34 10/30/24 08:00
Intake and Output
10/29/24 10/30/24 10/31/24
06:59 06:59 06:59
Intake Total 230.4 / 251.7 1034.0 / 1059.1 50.2 / 50.2
Output Total 0 / 0
Balance 230.4 / 251.7 1034.0 / 1059.1 50.2 / 50.2
SaO2 [A/C] 100
SaO2 100
Nasal Cannula flow liters per 2
minute
Physical Exam
General: Comfortable
HEENT: Normocephalic
Cardiovascular: S1-S2
Respiratory: Clear and Non-Labored Respirations
GI: Non Distended
Neurology: Other (Sedated, starting to wake up)
Labs/Micro/Reports
Lab Data
10/30/24 04:06
10/30/24 04:06
Laboratory Results
10/30/24
03:49
pH 7.45
pCO2 31 L
pO2 136 H
HCO3 21.5
O2 Delivery Level
[2024-10-30] MEDS: DRISDOL (VITAMIN D2) TUBE (09:51)
[2024-10-30] MEDS: HYDROPHOR 1 APPLIC TOPICAL (09:52)
--- NOTE | 2024-10-30 10:03 | PTCARENOTE ---
Weaning sedation for extubation - fentanyl off and Precedex at 0.6mcg. Pt more alert and communicated via writing. RT at bedside and placed vent on spontaneous mode. Pt tolerating so far.
--- NOTE | 2024-10-30 10:45 | W.PN.UPDATE ---
Update Note
Progress Note Update
Seen and evaluated. Remains intubated/sedated. Right below the knee amputation dressing is clean dry and intact. No blood staining. No hematoma noted. Plan remove dressing tomorrow. Wean to extubate per ICU team.
[2024-10-30] MEDS: DRISDOL (VITAMIN D2) 50000 UNITS TUBE (10:54)
--- NOTE | 2024-10-30 11:33 | W.PN.HOSP.TC ---
Today's Communication/Plan
-
Assessment / Plan
Assessment / Plan
NAD
Scleral Anicteric
MMM
No JVD
Rhonchorous
RRR, S1/S2
Soft, NT, ND, BS+
Warm, Dry
R BKA wrapped
Sedated
Acute hypoxemic respiratory failure requiring mechanical ventilation
Continue vent settings per ICU
Dialyze per nephrology
Daily SAT SBT
GI prophylaxis
Hopeful to extubate later today
Acute on chronic HFpEF exacerbation, NYHA class III-IV, EF 65 to 70%
Volume management with hemodialysis and Bumex Thursday
Continue hemodialysis per nephrology recommended
Cardiology following
ESRD on hemodialysis via right anterior chest wall primary catheter
Hemodialysis per nephrology recommendations
Right dorsal foot wound with findings concerning for osteomyelitis as the foot wound is nonhealing.
Vascular and podiatry both surgical specialties recommending BKA
- Previously was not agreeable with now seems agreeable at this time
Stress test without ischemic evidence
S/p BKA 10/28
Anticipated Discharge: 24 - 48 hours
Subjective/Interval History
-
Date of Service: October 30, 2024
seen and examined
no new compaints
she is awake but still intubated
she is writing her questions
no overnight events
Objective Data
-
Labs:
Laboratory Results
10/30/24 10/30/24
03:49 04:06
WBC 12.0 H
Hgb 10.4 L
Hct 31.6 L
Plt Count 391
HCO3 21.5
Sodium 134 L
Potassium 4.9
Chloride 98
Carbon Dioxide 22
BUN 33 H
Creatinine 2.6 H
Glucose 283 H
Calcium 8.9
Total Bilirubin 1.1
AST 23
ALT < 10
Alkaline Phosphatase 279 H
Vital Signs:
Vital Signs
Temp Pulse Resp BP Pulse Ox
98.1 F 81 15 151/51 100
10/30/24 07:36 10/30/24 10:01 10/30/24 10:01 10/30/24 09:00 10/30/24 11:16
I&O
10/29/24 10/30/24 10/31/24
06:59 06:59 06:59
Intake Total 230.4 / 251.7 1034.0 / 1059.1 72.8 / 72.8
Output Total 0 / 0
Balance 230.4 / 251.7 1034.0 / 1059.1 72.8 / 72.8
[2024-10-30 11:42] LABS: Glucose - Point of Care 248 mg/dl (70-99)
[2024-10-30] MEDS: NOVOLOG FLEXPEN-LOW RESISTANCE 2 UNITS SC ×2 (11:48→17:37)
--- NOTE | 2024-10-30 12:23 | PTCARENOTE ---
Pt extubated w/o issue. Pt talking to staff in normal tone. Pt is oriented and making needs known verbally.
--- NOTE | 2024-10-30 14:26 | PTCARENOTE ---
Pt asking for her belongings which can not be found in room. Called to [facility] and nurse that had her before transfer to ICU on 10/28 is on today - says belongings were brought up to ICU in grocery bags. Bags contained clothes and cell phone. No sign
of bags in room or on unit. Called security to check with them but they also do not have any of her things.
[2024-10-30] MEDS: TYLENOL 650 MG TUBE ×2 (16:26→19:54)
[2024-10-30 17:09] LABS: Glucose - Point of Care 230 mg/dl (70-99)
[2024-10-30] MEDS: LIPITOR PO (19:52)
[2024-10-30] MEDS: HEPARIN SC (19:53)
--- NOTE | 2024-10-30 20:00 | PTCARENOTE ---
Rec'd ptresting in bed, tylenol 650mg po given for R bka incis pain, SR w/ pacs, short bursts of svt with turning, bp stable, + edema, R aka gerri wrap intact, O2 1 liter nc, lungs coarse, decr in bases, saat 98, + bowl sounds, inc lg amt brown stool,
no n/v, oliguric
[2024-10-30 21:08] LABS: Glucose - Point of Care 254 mg/dl (70-99)
[2024-10-30] MEDS: LANTUS 0.03 UNITS SC (21:08)
[2024-10-30] MEDS: TYLENOL 650 MG PO (23:54)
--- NOTE | 2024-10-30 23:56 | PTCARENOTE ---
tylenol 650 mg po given for pain
[2024-10-31] VITALS (34 sets, daily range): BP systolic 90–141; BP diastolic 44–71; PULSE 77; BMI 26.0
[2024-10-31] MEDS: MUCINEX 600 MG PO (03:47)
[2024-10-31] MEDS: TYLENOL 650 MG PO ×4 (03:48→19:43)
--- NOTE | 2024-10-31 03:51 | PTCARENOTE ---
tylenol 650 mg po given for pain, mucinex 600 mg po given for cough
[2024-10-31 03:54] LABS: % Basophils 0.6 % (0-2); % Eosinophils 2.1 % (0-6); % Immature Granulocytes 0.4 % (0-0.5); % Monocytes 9.5 % (1.7-9.3); % Neutrophils 75.4 % (42.2-75.2); Absolute Basophils 0.1 10^3/uL (0-0.2); Absolute Eosinophils 0.3 10^3/uL (0-0.7); Absolute Immature Granulocytes 0.1 10^3/uL (0-0.05); Absolute Lymphocytes 1.5 10^3/uL (1.2-3.4); Absolute Monocytes 1.2 10^3/uL (0.1-0.6); Absolute Neutrophils 9.3 10^3/uL (1.4-6.5); Mean Corp Hgb Conc. 32.1 g/dL (33.0-37.0); Mean Corpuscular Hgb 26.1 pg (27.0-31.0); Mean Corpuscular Volume 81.2 fL (81.0-99.0); Mean Platelet Volume 9.1 fL (7.4-10.4); Nucleated Red Blood Cells % 0 %; Platelet Count 319 10^3/uL (130-400); Red Blood Cell Count 3.45 10^6/uL (4.20-5.40); Red Cell Dist. Width 19.1 % (11.5-14.5); White Blood Cell Count 12.4 10^3/uL (4.8-10.8)
[2024-10-31 04:16] LABS: ALT (SGPT) < 10 U/L (0-35); AST (SGOT) 17 U/L (14-36); Albumin 3.1 g/dl (3.5-5.0); Alkaline Phosphatase 301 U/L (38-126); Blood Urea Nitrogen 44 mg/dl (7-17); Calcium 8.1 mg/dl (8.4-10.2); Carbon Dioxide 23 mmol/L (22-30); Chloride 100 mmol/L (98-107); Estimated Creatinine Clearance 15 ml/min; Glucose 251 mg/dl (70-99); Potassium 4.1 mmol/L (3.5-5.1); Sodium 135 mmol/L (135-145); Total Bilirubin 0.9 mg/dl (0.2-1.3); Total Protein 6.9 g/dl (6.3-8.2); eGFR 13.91
--- NOTE | 2024-10-31 07:48 | W.PN.VS ---
Today's Communication / Plan
-
Discussed with Dr Lai
Assessment/Plan
-
Postoperative day #3 right BKA.
� AMANDA wrap daily, an remove at night
- Pain management
- Will add office follow up to chart
Subjective Data
-
Date of Service: October 31, 2024
Pt seen at bedside this am. Pt complains of intermittent pain to the stump site. Recently extubated, doing well on NC.
Objective Data
-
Vital Signs
Temp Pulse Resp BP Pulse Ox
98.6 F 84 15 109/49 98
10/31/24 03:51 10/31/24 06:00 10/31/24 06:00 10/31/24 06:00 10/31/24 06:00
Intake and Output
10/30/24 10/31/24 11/01/24
06:59 06:59 06:59
Intake Total 1034.0 / 1059.1 470.3 / 470.3
Balance 1034.0 / 1059.1 470.3 / 470.3
Intake:
Oral fluids 390 / 390
IV fluids (Total) 479.0 / 504.1 80.3 / 80.3
Fentanyl 192.5 / 202.5 20 / 20
Precedex 286.5 / 301.6 60.3 / 60.3
Tube feeding 390 / 390
Feeding tube flush amount 105 / 105
Amount instilled into GI Tube ( 60 / 60
Total)
[place] Sump 60 / 60
Other:
How many times incontinent 1
SMALL amount urine
Lab Results
10/31/24 03:37
10/31/24 03:37
Calcium 8.1 mg/dl (8.4-10.2) L 10/31/24 03:37
Phosphorus 3.2 mg/dl (2.5-4.5) 10/28/24 20:53
Magnesium 1.8 mg/dl (1.6-2.3) 10/29/24 05:00
Total Bilirubin 0.9 mg/dl (0.2-1.3) 10/31/24 03:37
Direct Bilirubin Cancelled 10/29/24 06:00
AST 17 U/L (14-36) 10/31/24 03:37
ALT < 10 U/L (0-35) 10/31/24 03:37
Alkaline Phosphatase 301 U/L (38-126) H 10/31/24 03:37
Total Protein 6.9 g/dl (6.3-8.2) 10/31/24 03:37
Albumin 3.1 g/dl (3.5-5.0) L 10/31/24 03:37
Physical Exam
-
AAOx3
No tachypnea on NC
No tachycardia
Abd soft
Stump site undressed at bedside. Staple line well approximated, no drainage, skin intact
Rewrapped with AMANDA
[2024-10-31] MEDS: NOVOLOG FLEXPEN-LOW RESISTANCE 1 UNITS SC (07:54)
[2024-10-31] MEDS: NOVOLOG FLEXPEN 2 UNITS SC ×3 (07:55→17:36)
[2024-10-31] MEDS: COREG TUBE (08:02)
[2024-10-31] MEDS: LOW STRENGTH ASPIRIN 81 MG TUBE (08:02)
[2024-10-31] MEDS: PLAVIX 75 MG TUBE (08:02)
[2024-10-31] MEDS: HEPARIN SC ×2 (08:03→19:33)
[2024-10-31] MEDS: HYDROPHOR 1 APPLIC TOPICAL (08:03)
[2024-10-31 08:05] LABS: Glucose - Point of Care 181 mg/dl (70-99)
[2024-10-31] MEDS: VISBIOME 1 CAP TUBE (08:05)
[2024-10-31] MEDS: PREVACID TUBE (08:05)
--- NOTE | 2024-10-31 08:14 | W.PN.CD ---
Today's Communication / Plan
-
Looks well postop. No arrhythmias on telemetry. ECG unchanged. No CV complaints.
Volume management with HD.
Cardiology will sign off at this time. Please call with any additional questions or concerns.
Impression / Plan
-
Cough:
- This was patient's main complaint today. Has been present for at least 1 week. Examines euvolemic.
- CXR 10/30/2024: Clear lungs. Flu negative on 10/24/24
- Antitussives per primary team
- Trend with volume removal with HD
ESRD:
-getting HD presently, nephrology following
Chest discomfort, abnormal troponin:
-suspect acute, non-ischemic myocardial injury in setting of ESRD
-chest discomfort is atypical in that it is constant for months.
- Stress below : was normal without perfusion defect
-Echocardiogram without regional wall motion abnormality.
Chronic HFpEF:
-volume management with HD
-examines euvolemic
Valvular heart disease:
-Echo 12/07/23: Left ventricle is small in size. Hyperdynamic left ventricular systolic function. Stage II DD. Dense MAC. Mild to moderate mitral stenosis (calcific in nature with the dense MAC. The anterior MV leaflet moves normally). Mild mitral
regurgitation. Thickened aortic valve with restricted leaflet motion. Moderate , AR, PASP 60-65 mmHg.
-echo 10/20/2024 similar to above with improved pasp 30-35mmHg.
-hx aortic valve surgery at age 5? No records available as noted per [facility]. No prosthetic material in the aortic valve or root area on imaging
nonhealing wounds on Rt foot:
-Vascular recommending BKA
Subjective:
Complaining of cough. Also does not feel great. No chest pain.
Data:
TTE10/20/24 : Hyperdynamic left ventricular systolic function. LVEF 75%.
Likely elevated LV filling pressures.
Enlarged right ventricle with reduced systolic function. Septal flattening
consistent with elevated RV volume/pressure overload.
Moderate aortic stenosis (44/28 mmHg, 1.1 cm2 by continuity equation,
planimetry 1.45 cm2).
Moderate aortic regurgitation.
Mild tricuspid regurgitation. PASP 30-35 mmHg.
Physical Exam
Vital Signs/Labs
Vital Signs
Temp Pulse Resp BP Pulse Ox
98.1 F 84 15 109/49 98
10/31/24 08:00 10/31/24 06:00 10/31/24 06:00 10/31/24 06:00 10/31/24 06:00
10/30/24 10/31/24 11/01/24
06:59 06:59 06:59
Actual Weight 146 lb 13.246 oz 146 lb 9.718 oz
10/31/24 03:37
10/31/24 03:37
PT 15.3 Sec (11.4-14.6) H 10/29/24 04:36
INR 1.18 10/29/24 04:36
APTT 36.3 Sec (23.4-35.0) H 10/29/24 04:36
Magnesium 1.8 mg/dl (1.6-2.3) 10/29/24 05:00
Free T4 1.45 ng/dl (0.78-2.19) 10/19/24 12:50
Physical Exam
Constitutional: No acute distress and Comfortable
Cardiovascular: Rhythm & rate is regular, Pedal edema is absent, S1S2 is normal and Murmur/rub/gallop absent
Respiratory: Respiratory effort normal
Neuro/Psych: AO x 3
Data Reviewed
-
Date of Service: October 31, 2024
Medical Decision Making: Reviewed Test Results, Independent Historian Assessment, Test Interpretation and Review of Case with other Provider
EKG: Tracing Personally Visualized and interpreted
Echo: Report Reviewed by me
Labs: Labs Reviewed by me
--- NOTE | 2024-10-31 08:58 | W.PN.NEPH.HD ---
Assessment
-
Seen on HD. now on 2L NC. VSS, access ok
Progress Note - Hemodialysis
-
Date of Service: October 31, 2024
Duration: 30 minutes and 3 hours
Potassium Bath: 2
Calcium Bath: 2.5
Opti-Dialyzer: 160
Ultrafiltration: Other (3kg)
Blood Flow: 400
Dialysate Flow: 600
Heparin: 0
EPO: 4000
--- NOTE | 2024-10-31 10:32 | PTCARENOTE ---
Rec'd ptresting in bed, HD RN at bedside beginning dialysis. SR w/ pacs, bp stable, + edema, R aka gerri wrap intact, Undressed/redressed by Vasc team. O2 1 liter nc, lungs coarse, decr in bases, sat 98, + bowl sounds, inc lg amt brown stool
overnight, no n/v, oliguric. Refusing heparin SC, coreg, and PPI.
[2024-10-31] MEDS: RETACRIT 4000 UNITS IV (10:38)
[2024-10-31] MEDS: HEPARIN 3700 UNITS INTRACATH (10:40)
--- NOTE | 2024-10-31 10:58 | CM ---
Patient seen at bedside. Patient on HD and anxious about missing cell phone, belongings. Nursing updated. CM will call to [facility] at patient request. CM will continue to follow for discharge planning needs.
Plan; Acute rehab vs SNF pending patient functional needs
--- NOTE | 2024-10-31 11:24 | W.PN.HOSP.TC ---
Addendum entered and electronically signed by Donte Medina MD 10/31/24 17:18:
Seen and examined by me independently in collaboration with the certified medical records coder.
Lab data and imaging data reviewed.
Addendum as below :
Medically stable for transfer to [facility]
Original Note:
Today's Communication/Plan
-
c/w pain management and gerri wrap
video swallow study
downgrade to med surg
CM for rehab planning
Assessment / Plan
Assessment / Plan
49 year old female presenting with extreme fatigue s/p Dialysis
#Persistent Cough
- persistent cough since 10/22, productive of sputum -- continued despite mucinex & improvement in fluid status w/ Dialysis
- concern for aspiration -- will pursue video swallow study to confirm
#R BKA POD3
#Nonhealing R Dorsal Foot Wound
- vascular following; c/w gerri wrap, pain management
- stable for downgrade to med/surg
(Would like to go to [facility] after surgery)
#Acute Exacerbation of HFpEF
- Last Echo 12/2023 showing EF 65-70%, multivalvular disease, elevated PASP 60-65mmHg and Stage II diastolic dysfunction
- repeat Echo showing 75%EF, flattening of septum consistent w/ elevated RV volume, moderate , Mod. AR, Mod. TR. PASP decreased to 30-35mmHg. RV function is worse on today's echo when compared to prior 12/2023.
- clinical signs of acute on chronic volume overload
- was on 2L NC, intermittently requiring, more so at night
- c/w Coreg, Bumex, dialysis w/ ultrafiltration per Nephro
#ESRD (on dialysis MWF)
#Hyperkalemia
- R sided tunnelled dialysis cath. last received 10/18/2024
- Is on Bumex POA, patient states she makes urine
- c/w dialysis MWF per nephro w/ extra fluid removal
#Nonischemic Myocardial Injury
#Elevated troponins (resolved)
- chest pain and pressure, troponinemia, ECG showing sinus rhythm with PACs
- trops peaked
- Echo this admission with worsening RV function compared to December 2023
- Pt refusing heart cath -- Nuclear stress test - no perfusion defect seen
CHRONIC STABLE
#Multiple acute on chronic non-healing ulcers of various stages
#R heel with blistering and suspected stage 3 Pressure Injury
- non-toxic at this time
- wound care following, c/w dressings and ointment
#Pica Disorder
#H/o Depression
- patient endorses a compulsion to eat matches. She states she has been doing so since she was young, and that during times of stress she may consume as many as 100 matches per day.
- Matches contain potassium chlorate, sulfur, glue, red phosphorus, ammonium phosphate and paraffin, all of which are at the very least nephrotoxic
- Psych consulted; nephro aware.
- Psych rec. antidepressants but patient not receptive to the idea at this time
#Anemia, likely secondary to chronic disease and ESRD
- hgb at baseline, no signs of active bleeding
- given one dose EPO
- transfuse to keep hgb >7
#IDDM Type I (correction, further chart review reveals Type I, prior documentation by me says Type II; it is Type I).
- h/o of poorly controlled Type I DM, prior A1Cs seem to be around 9-11%
- repeat A1C% this admission 9.0%
- c/w 3U long acting QHS and 2U AC
- POC glucose checks
- c/w statin
#H/o R metatarsal amputation
#H/o osteomyelitis
#h/o CVA w/o residual deficit - c/w aspirin/plavix
#h/o Paroxysmal SVT
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
#chronic hearing loss, secondary to diabetic neuropathy
Regular Diet
DVT Ppx: Heparin SC
Code Status: Full Code
Anticipated Discharge: 24 - 48 hours
Subjective/Interval History
-
Date of Service: October 31, 2024
Having some dysphagia and cough. Patient extubated and doing well.
Objective Data
-
Labs:
Laboratory Results
10/31/24
03:37
WBC 12.4 H
Hgb 9.0 L
Hct 28.0 L
Plt Count 319
Sodium 135
Potassium 4.1
Chloride 100
Carbon Dioxide 23
BUN 44 H
Creatinine 3.8 H
Glucose 251 H
Calcium 8.1 L
Total Bilirubin 0.9
AST 17
ALT < 10
Alkaline Phosphatase 301 H
Vital Signs:
Vital Signs
Temp Pulse Resp BP Pulse Ox
98.1 F 84 18 117/50 99
10/31/24 08:00 10/31/24 11:00 10/31/24 11:00 10/31/24 11:00 10/31/24 11:00
I&O
10/30/24 10/31/24 11/01/24
06:59 06:59 06:59
Intake Total 1034.0 / 1059.1 470.3 / 470.3
Balance 1034.0 / 1059.1 470.3 / 470.3
Review of Systems
-
History Source: Patient
All other systems: Reviewed and negative
Constitutional: Reports No Symptoms
EENT: Reports No Symptoms Reported
Respiratory: Reports Cough; Denies Hemoptysis or Wheezing
Cardiac: Reports No Symptoms
Abdomen/GI: Reports Other (dysphagia)
Genitourinary: Reports No Symptoms
Musculoskeletal: Reports No Symptoms
Neuro: Reports No Symptoms
Physical Exam
-
General: Well Developed and Appears Chronically Ill
HEENT: Normocephalic, Atraumatic, Moist Mucous Membranes, Anicteric, [place] Conjunctivae, Nose Appears Normal, Ears Appear Normal and Oxygen
Respiratory: Rales and Rhonchi; Negative Wheezes
Cardiac: Regular Rhythm, S1/S2 and Murmur; Negative Rub or Calf Tenderness
GI: Soft, Nontender, Nondistended and Normal Bowel Sounds
Musculoskeletal: No Clubbing, No Cyanosis, No Edema and Other (s/p R BKA)
Skin: Warm, Dry and IV Access / Catheter Site
Neuro: Awake, Alert and Oriented
--- NOTE | 2024-10-31 11:38 | PTCARENOTE ---
HD complete with 3L removed. Assessment unchanged. Now M/S status.
[2024-10-31] MEDS: NOVOLOG FLEXPEN-LOW RESISTANCE SC (12:51)
[2024-10-31 12:55] LABS: Glucose - Point of Care 114 mg/dl (70-99)
[2024-10-31] MEDS: NOVOLOG FLEXPEN-LOW RESISTANCE 2 UNITS SC (17:37)
[2024-10-31] MEDS: LIPITOR PO (17:39)
[2024-10-31 17:47] LABS: Glucose - Point of Care 231 mg/dl (70-99)
[2024-10-31] MEDS: COREG 3.125 MG PO (19:33)
--- NOTE | 2024-10-31 20:00 | PTCARENOTE ---
Rec'd pt resting in bed, tylenol 650mg po given for R BKA pain, denies chest pain, 1 liter nc, lungs coarse, decr in bases, sat 97, refused hep SC- aware of improtance to prevent DVT, + bowel sounds, no bm, abd soft, no n/v, mounika diet, oliguric
[2024-10-31 21:45] LABS: Glucose - Point of Care 235 mg/dl (70-99)
[2024-10-31] MEDS: LANTUS 0.03 UNITS SC (21:59)
[2024-10-31] MEDS: MELATONIN 5 MG PO (23:46)
[2024-11-01] VITALS: BP 122/50
--- NOTE | 2024-11-01 | PTCARENOTE ---
CHG bath done, linens changed;Melatonin 5mg po given for sleep
[2024-11-01 04:00] VITALS: BP 136/58
[2024-11-01 04:16] VITALS: BMI 24.5
[2024-11-01 04:53] LABS: % Basophils 0.9 % (0-2); % Eosinophils 2.1 % (0-6); % Immature Granulocytes 0.5 % (0-0.5); % Lymphocytes 10.5 % (20.5-51.1); % Monocytes 8.2 % (1.7-9.3); % Neutrophils 77.8 % (42.2-75.2); Absolute Basophils 0.1 10^3/uL (0-0.2); Absolute Eosinophils 0.3 10^3/uL (0-0.7); Absolute Immature Granulocytes 0.1 10^3/uL (0-0.05); Absolute Lymphocytes 1.6 10^3/uL (1.2-3.4); Absolute Monocytes 1.2 10^3/uL (0.1-0.6); Absolute Neutrophils 11.6 10^3/uL (1.4-6.5); Hematocrit 30.7 % (37.0-47.0); Hemoglobin 9.4 g/dL (12.0-16.0); Mean Corp Hgb Conc. 30.6 g/dL (33.0-37.0); Mean Corpuscular Hgb 25.6 pg (27.0-31.0); Mean Corpuscular Volume 83.7 fL (81.0-99.0); Mean Platelet Volume 9.5 fL (7.4-10.4); Nucleated Red Blood Cells % 0 %; Platelet Count 342 10^3/uL (130-400); Red Blood Cell Count 3.67 10^6/uL (4.20-5.40); Red Cell Dist. Width 19.4 % (11.5-14.5); White Blood Cell Count 14.9 10^3/uL (4.8-10.8)
[2024-11-01 05:16] LABS: ALT (SGPT) < 10 U/L (0-35); AST (SGOT) 19 U/L (14-36); Albumin 3.1 g/dl (3.5-5.0); Alkaline Phosphatase 345 U/L (38-126); Blood Urea Nitrogen 26 mg/dl (7-17); Calcium 8.6 mg/dl (8.4-10.2); Carbon Dioxide 27 mmol/L (22-30); Chloride 105 mmol/L (98-107); Estimated Creatinine Clearance 23 ml/min; Glucose 207 mg/dl (70-99); Potassium 3.9 mmol/L (3.5-5.1); Sodium 140 mmol/L (135-145); Total Bilirubin 0.8 mg/dl (0.2-1.3)
[2024-11-01 07:29] LABS: Glucose - Point of Care 166 mg/dl (70-99)
[2024-11-01 07:34] VITALS: BP 128/56
[2024-11-01] MEDS: VISBIOME 1 CAP PO (07:37)
[2024-11-01] MEDS: PLAVIX 75 MG PO (07:37)
[2024-11-01] MEDS: LOW STRENGTH ASPIRIN 81 MG PO (07:38)
[2024-11-01] MEDS: NOVOLOG FLEXPEN SC ×4 (07:38→13:41)
[2024-11-01] MEDS: HYDROPHOR 1 APPLIC TOPICAL (07:38)
[2024-11-01] MEDS: NOVOLOG FLEXPEN-LOW RESISTANCE SC ×4 (07:39→17:53)
[2024-11-01] MEDS: HEPARIN SC ×2 (07:41→19:19)
[2024-11-01] MEDS: PROTONIX PO (07:41)
[2024-11-01] MEDS: COREG PO ×2 (07:41→19:19)
[2024-11-01] MEDS: TYLENOL 650 MG PO ×3 (07:45→23:09)
[2024-11-01] MEDS: BUMEX 2 MG PO (07:45)
--- NOTE | 2024-11-01 09:10 | PTCARENOTE ---
Rec'd pt resting in bed, tylenol 650mg po given for R BKA pain, denies chest pain, 1 liter nc with SpO2 100%, to RA. lungs coarse, decr in bases. Pt refusing multiple AM meds. Also refusing insulin stating she isn't planning on eating breakfast.
Discussed high BG and need for insulin-again refused. +, + bowel sounds, no bm, abd soft, no n/v, oliguric
[2024-11-01] MEDS: LIDOCAINE 4% PATCH 1 PATCH TOPICAL ×2 (10:49→14:50)
--- NOTE | 2024-11-01 10:50 | PTCARENOTE ---
Pt off dora with transport to video swallow eval. Lidocaine patch applied to sacrum under adhesive foam as requested by pt and resident
--- NOTE | 2024-11-01 11:51 | W.PN.NEPH.PH ---
Today's Communication / Plan
-
HD tomorrow
Assessment/Plan
-
48-year-old female past medical history of right diabetic foot infection status post fifth toe amputation, peripheral arterial disease, ESRD on hemodialysis Thursday [facility] [address] [place] [address]
Impression:
ESRD
Thursday
Hyperkalemia
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
recent diabetic foot infection of right lateral foot possible osteomyelitis status post angiogram with stent placement on 07/08/2024
History of right diabetic foot infection status post fifth toe amputation on 12/06 and revision fourth toe amputation on 12/13
Peripheral arterial disease status post diagnostic arteriogram, intravascular lithotripsy of the posterior tibial artery and proximal SFA, balloon angioplasty and nitroglycerin injection of posterior tibial artery on 12/21/23
Chronic transaminitis
Type 1 diabetes
ESRD on hemodialysis Thursday and Thursday (stopped two months prior)
Chronic HFpEF
chronic anemia
Moderate aortic stenosis/aortic regurgitation
Mild to moderate mitral stenosis
Paroxysmal SVT
Iron deficiency anemia
History of CVA
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
Plan:
HD tomorrow
transfer out of unit
-
-
Date of Service: November 01, 2024
CC / HPI / ROS
-
Chief Complaint:
Presents with
Confusion altered mental status difficulty hearing
History of Present Illness:
ESRD Thursday volume overloaded chronic foot infection
tolerated HD yesterday
BP stable
Review of Systems:
no CP
No fever
Labs
-
Labs:
WBC 14.9 10^3/uL (4.8-10.8) H 11/01/24 04:23
RBC 3.67 10^6/uL (4.20-5.40) L 11/01/24 04:23
Hgb 9.4 g/dL (12.0-16.0) L 11/01/24 04:23
Hct 30.7 % (37.0-47.0) L 11/01/24 04:23
Plt Count 342 10^3/uL (130-400) 11/01/24 04:23
Sodium 140 mmol/L (135-145) 11/01/24 04:23
Potassium 3.9 mmol/L (3.5-5.1) 11/01/24 04:23
Chloride 105 mmol/L (98-107) 11/01/24 04:23
Carbon Dioxide 27 mmol/L (22-30) 11/01/24 04:23
BUN 26 mg/dl (7-17) H 11/01/24 04:23
Creatinine 2.5 mg/dL (0.6-1.0) H 11/01/24 04:23
eGFR 23.00 11/01/24 04:23
Glucose 207 mg/dl (70-99) H 11/01/24 04:23
Calcium 8.6 mg/dl (8.4-10.2) 11/01/24 04:23
Phosphorus 3.2 mg/dl (2.5-4.5) 10/28/24 20:53
Albumin 3.1 g/dl (3.5-5.0) L 11/01/24 04:23
Physical Exam
-
Vital Signs:
Vital Signs
Temp Pulse Resp BP Pulse Ox
98.4 F 85 13 128/56 100
11/01/24 08:21 11/01/24 10:00 11/01/24 10:00 11/01/24 07:34 11/01/24 08:00
Cardiovascular:: Regular rate and rhythm
Respiratory:: Bilateral: Coarse
Lung Excursion:: Normal
Abdomen:: Nontender and Soft
Bowel Sounds:: Normal
Extremity Edema:: None: Bilateral:
[2024-11-01 11:52] VITALS: BP 107/56
--- NOTE | 2024-11-01 11:52 | CM ---
Addendum entered by Amelia Narayan 11/01/24 16:13:
Per Alvarez at [facility] patient accepted for transfer pending auth. CM will start auth.
Original Note:
Patient seen at bedside in ICU. CM called to [facility] liaison and sent referral via all scripts. Await response. CM will continue to follow for discharge planning needs.
Plan;Rod; yvonne adams if possible
[2024-11-01] MEDS: ROXICODONE 2.5 MG PO ×2 (11:55→19:23)
[2024-11-01 12:10] LABS: Glucose - Point of Care 125 mg/dl (70-99)
[2024-11-01 12:12] VITALS: BP 109/48
--- NOTE | 2024-11-01 13:36 | PTOTSP ---
Video Swallow Examination
Suspected vocal fold dysfunction along with delayed laryngeal vestibular closure resulted in trace silent aspiration of thin liquids. Use of head turn left improved airway protection but trace deep laryngeal penetration was noted with larger bolus
of thin liquid despite use of strategy. Trace to mild pharyngeal stasis mostly cleared with dry swallows. Patient is not interested in thickened liquids. Esophagus slow to empty.
Recommend
1. Regular solids and Thin Liquids.
2. Thin liquids by small single sips by cup or straw wtih head turn left during swallow.
3. Dry swallows.
4. Intermittent throat clear during swallow of thin liquids.
5. Oral care at least 3x/daily
6. Meds whole in applesauce.
7. Consider ENT consult to assess vocal fold integrity, given fairly new dysphonia that is likely contributing factor for aspiration.
8. Aspiration precautions.
9. ST will follow to ensure diet tolerance and educate in airway protection techniques.
[2024-11-01] MEDS: NOVOLOG FLEXPEN 2 UNITS SC ×2 (13:45→17:53)
--- NOTE | 2024-11-01 14:46 | W.PN.HOSP.TC ---
Today's Communication/Plan
-
pain control tylenol/oxy
Physiatry consult for rehab
pending placement for acute rehab
Assessment / Plan
Assessment / Plan
49 year old female presenting with extreme fatigue s/p Dialysis
#Persistent Cough
- persistent cough since 10/22, productive of sputum -- continued despite Mucinex & improvement in fluid status w/ Dialysis
- concern for aspiration -- VSE shows silent aspiration of thin liquid -- recommending ENT consult for vocal fold integrity given dysphonia
#R BKA POD4
#Nonhealing R Dorsal Foot Wound
- vascular following; c/w gerri wrap, pain management
- stable for downgrade to med/surg
([facility] after surgery) -- physiatry consult
- post-op pain control with Tylenol and Oxy 2.5mg q4prn
#Acute Exacerbation of HFpEF
- Last Echo 12/2023 showing EF 65-70%, multivalvular disease, elevated PASP 60-65mmHg and Stage II diastolic dysfunction
- repeat Echo showing 75%EF, flattening of septum consistent w/ elevated RV volume, moderate , Mod. AR, Mod. TR. PASP decreased to 30-35mmHg. RV function is worse on today's echo when compared to prior 12/2023.
- clinical signs of acute on chronic volume overload
- was on 2L NC, intermittently requiring, more so at night
- c/w Coreg, Bumex, dialysis w/ ultrafiltration per Nephro
#ESRD (on dialysis MWF)
#Hyperkalemia
- R sided tunnelled dialysis cath. last received 10/18/2024
- Is on Bumex POA, patient states she makes urine
- c/w dialysis MWF per nephro w/ extra fluid removal
#Nonischemic Myocardial Injury
#Elevated troponins (resolved)
- chest pain and pressure, troponinemia, ECG showing sinus rhythm with PACs
- trops peaked
- Echo this admission with worsening RV function compared to December 2023
- Pt refusing heart cath -- Nuclear stress test -- no perfusion defect seen
#New stage 1 sacral wound - clean, dressing dry and intact
CHRONIC STABLE
#Multiple acute on chronic non-healing ulcers of various stages
#R heel with blistering and suspected stage 3 Pressure Injury
- non-toxic at this time
- wound care following, c/w dressings and ointment
#Pica Disorder
#H/o Depression
- patient endorses a compulsion to eat matches. She states she has been doing so since she was young, and that during times of stress she may consume as many as 100 matches per day.
- Matches contain potassium chlorate, sulfur, glue, red phosphorus, ammonium phosphate and paraffin, all of which are at the very least nephrotoxic
- Psych consulted; nephro aware.
- Psych rec. antidepressants but patient not receptive to the idea at this time
#Anemia, likely secondary to chronic disease and ESRD
- hgb at baseline, no signs of active bleeding
- given one dose EPO
- transfuse to keep hgb >7
#IDDM Type I (correction, further chart review reveals Type I, prior documentation by me says Type II; it is Type I).
- h/o of poorly controlled Type I DM, prior A1Cs seem to be around 9-11%
- repeat A1C% this admission 9.0%
- c/w 3U long acting QHS and 2U AC
- POC glucose checks
- c/w statin
#H/o R metatarsal amputation
#H/o osteomyelitis
#h/o CVA w/o residual deficit - c/w aspirin/plavix
#h/o Paroxysmal SVT
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
#chronic hearing loss, secondary to diabetic neuropathy
Regular Diet
DVT Ppx: Heparin SC
Code Status: Full Code
Anticipated Discharge: 24 - 48 hours
Subjective/Interval History
-
Date of Service: November 01, 2024
Pain in her sacrum and right leg at amputation site. No acute overnight events.
Objective Data
-
Labs:
Laboratory Results
11/01/24
04:23
WBC 14.9 H
Hgb 9.4 L
Hct 30.7 L
Plt Count 342
Sodium 140
Potassium 3.9
Chloride 105
Carbon Dioxide 27
BUN 26 H
Creatinine 2.5 H
Glucose 207 H
Calcium 8.6
Total Bilirubin 0.8
AST 19
ALT < 10
Alkaline Phosphatase 345 H
Vital Signs:
Vital Signs
Temp Pulse Resp BP Pulse Ox
97.8 F 85 13 128/56 100
11/01/24 11:30 11/01/24 10:00 11/01/24 10:00 11/01/24 07:34 11/01/24 12:45
I&O
10/31/24 11/01/24 11/02/24
06:59 06:59 06:59
Intake Total 470.3 / 470.3 460 / 460
Balance 470.3 / 470.3 460 / 460
Review of Systems
-
History Source: Patient
All other systems: Reviewed and negative
Constitutional: Reports No Symptoms
EENT: Reports No Symptoms Reported
Respiratory: Reports Cough; Denies Hemoptysis, Trouble Breathing, Wheezing or Pleurisy
Cardiac: Reports No Symptoms
Abdomen/GI: Reports No Symptoms
Breast: Reports No Symptoms
Genitourinary: Reports No Symptoms
Musculoskeletal: Reports Other (Post op Pain and sacral pain)
Physical Exam
-
General: Pain and Appears Chronically Ill
HEENT: Normocephalic, Atraumatic, Moist Mucous Membranes, Anicteric, [place] Conjunctivae, Nose Appears Normal, Ears Appear Normal and Oxygen
Respiratory: Rhonchi and Non Labored Respirations; Negative Wheezes or Rales
Cardiac: Regular Rhythm, S1/S2 and Murmur; Negative Rub or Calf Tenderness
GI: Soft, Nontender, Nondistended and Normal Bowel Sounds
Musculoskeletal: No Clubbing, No Cyanosis and No Edema
Skin: Warm, Dry and IV Access / Catheter Site
Neuro: Awake, Alert and Oriented
--- NOTE | 2024-11-01 14:48 | W.PN.UPDATE ---
Update Note
Progress Note Update
Seen and examined by me independently in collaboration with the hospitalist medical director.
Lab data and imaging data reviewed.
Addendum as below :
Improved from fluid overload standpoint. Asymptomatic without shortness of breath and not hypoxic.
Video swallowing test report noted-continue with solid diet and thin liquids.
Tolerating dialysis.
Would benefit acute rehab placement. Case management to look into placement. Discussed with case management today.
Await transfer to med surg.
--- NOTE | 2024-11-01 16:35 | CON.MD ---
Documented by User: Radha Otto PA-C 11/01/24 17:10
Consultation - Medical
-
Referring Provider:�Donte Rollins
Chief Complaint:�Debility, s/p right BKA
�
History of Present Illness:�49-year-old female PMH of (right diabetic foot infection s/p post angiogram with stent placement on 07/08/2024, fifth toe amputation and revision fourth toe amputation in December, [place] artery atherosclerosis with chronic
nonhealing right foot wounds and gangrene, right eye blindness, ESRD on hemodialysis Thursday) Poorly controlled diabetes with [place] artery atherosclerosis
status post right BKA on 10/28/[address] Memo Whitmore. Patient also with persistent cough since 10/22 with productive sputum despite Mucinex and improvement in fluid status with dialysis. Concern for aspiration. Video swallow study requested
confirmed trace silent aspiration with thin liquids. Patient on 1800-calorie diabetic diet with 1500ml liquid restrictions.
Past Medical History:�right diabetic foot infection s/p post angiogram with stent placement on 07/08/2024, fifth toe amputation and revision fourth toe amputation in December, [place] artery atherosclerosis with chronic nonhealing right foot wounds and
gangrene, right eye blindness, ESRD on hemodialysis, CKD, IDDM, CHF, PAD
Procedure History:�Peripheral arterial disease status post diagnostic arteriogram, intravascular lithotripsy of the posterior tibial artery and proximal SFA, balloon angioplasty and nitroglycerin injection of posterior tibial artery on 12/21/23
Family History:�non contributory
�
Social History:�
Functional Level Premorbidly: Independent with ADLs and functional mobility with rolling walker. Has been progressively requiring more assistance from her son for the past 2 months.
Functional Level Currently:�Bed mobility�supervision, transfers�mod assist x 2 for lifting, weight shifting, maintaining balance, visual cues for proper technique,, toileting�max assist,
�
Tobacco:�Denies�
Alcohol:�Denies�
Drug use:�Denies�
�
Lives with:�Family
24-hour assistance available:�
Number of floors:�Apartment with elevator access
# steps to enter:�None
# steps to second floor:
Potential First floor set up:�Yes
Driving:�No
Occupation:�disabled
�
�
Allergies:�
Allergy/AdvReac Type Severity Reaction Status Date / Time
latex Allergy Hives Verified 07/04/24 11:33
�
Review of Systems:�
Constitutional: (x) Normal _
Eye: (x) Normal _
Ear/Nose/Throat: (x) abNormal _persistent cough
Respiratory: (x) Normal _
Cardiovascular: (x) Normal _
Gastrointestinal: (x) abNormal _ESR on dialysis MWF
Genitourinary: (x) abNormal _ESRD on HD
Musculoskeletal: (x) abNormal _s/p right BKA
Integumentary: (x) abNormal _multiple wounds at different healing stage
Neurologic: (x) Normal _
Psychiatric: (x) Normal _
Endocrine: (x) Normal _
Hematologic/Lymphatic: (x) Normal _
Allergic/Immunologic: (x) Normal _
�
Medications:�
Active Current Visit Medication List
Category Date Time Status
Acetaminophen [Tylenol] Med 10/30/24 23:37 Active
650 mg PO Q4HPRN PRN
Albumin Human 25% 50 ml [Flexbumin 25% For Hemodialysis Med 11/02/24 08:00 Ordered
]
12.5 grams IV HD-Q1HPRN PRN
Aspirin Chewable [Low Strength Aspirin] Med 10/31/24 12:42 Active
81 mg PO DAILY
Atorvastatin [Lipitor] Med 10/18/24 18:00 Active
80 mg PO QPM
Bisacodyl [Dulcolax] Med 10/28/24 18:25 Active
10 mg RECTAL DAILYPRN PRN
Bumetanide [Bumex] Med 10/31/24 12:43 Active
2 mg PO SuTuThSa@0800
Carvedilol [Coreg] Med 10/31/24 13:19 Active
3.125 mg PO BID
Clopidogrel Bisulfate [Plavix] Med 10/31/24 13:20 Active
75 mg PO DAILY
Dextrose 50%-Water [Dextrose 50% Syringe] Med 10/18/24 15:27 Active
12.5 grams IV [id number] PRN
Epoetin Saran-Epbx [Retacrit] Med 11/02/24 08:00 Once
4,000 units IV HD-ONCE ONE
Ergocalciferol [Drisdol (Vitamin D2)] Med 10/31/24 13:19 Active
50,000 units PO HANSON
Flush (0.9% Sodium Chloride) [Flush (Nss)] Med 10/18/24 14:00 Active
See Dose Instructions IV PER PROTOCOL
Glucagon [GlucaGen] Med 10/18/24 15:27 Active
1 mg IM PRN PRN
Guaifenesin [Mucinex] Med 10/31/24 03:37 Active
600 mg PO BID PRN
Heparin Med 10/18/24 20:00 Active
5,000 units SC Q12
Heparin Med 11/02/24 08:00 Once
See Dose Instructions INTRACATH HD-ONCE ONE
HydrALAZINE [Apresoline] Med 10/28/24 21:17 Active
10 mg IV Q4HPRN PRN
Insulin Aspart Corrective Low [Novolog Flexpen-Low Med 10/31/24 07:30 Active
Resistance]
See Protocol SC AC
Insulin Aspart Pen [Novolog Flexpen] Med 10/31/24 07:30 Active
2 units SC AC
Insulin Glargine Lantus [Lantus] 3 units Med 10/18/24 22:00 Active
Subcutaneous Insulin Syringe [Syringe-Insulin] 0 unit
SC HS
Lactobac/Bifidobac [Visbiome] Med 10/31/24 12:42 Active
1 cap PO DAILY
Lidocaine [Lidocaine 4% Patch] Med 10/26/24 16:16 Active
1 patch TOPICAL DAILYPRN PRN
Mannitol 25% Med 11/02/24 08:00 Ordered
12.5 grams IV HD-Q1HPRN PRN
Oxycodone [Roxicodone] Med 11/01/24 09:44 Active
2.5 mg PO Q4HPRN PRN
Pantoprazole [Protonix] Med 11/01/24 08:00 Active
40 mg PO DAILY
Petrolatum/Mineral Oil [Hydrophor] Med 10/19/24 08:00 Active
See Dose Instructions TOPICAL DAILY
Remove Patch [Remove Lidocaine Patch] Med 10/31/24 19:01 Active
See Dose Instructions REMOVE DAILYPRN PRN
Sodium Chloride [Sodium Chloride 4 Meq/ml For Med 11/02/24 08:00 Ordered
Hemodialysis]
10 ml IV HD-Q1HPRN PRN
�
Vitals:�
Temp Pulse Resp BP Pulse Ox
97.8 F 85 13 128/56 100
11/01/24 11:30 11/01/24 10:00 11/01/24 10:00 11/01/24 07:34 11/01/24 12:45
Height 5 ft 3 in
Actual Weight 62.7 kg
Body Mass Index (BMI) 24.5
�
Physical Exam:�
General Appearance/Observation: Well-developed, well-nourished individual in no apparent distress.�Lying in bed half asleep
Pain/Comfort Assessment: right residual limb
Mood/Affect: Appropriate�
�
Integumentary/Operative Site:�right residual limb wrapped and in brace?
�� Pressure Ulcer Evaluation: absent over heels.�
��
�� Other Type of Wound: sacral wound-per chart note- not visualized
��
Eyes: Conjunctiva/Lids: normal���� Pupils: pupils equal round
Ears/Nose/Throat: oral mucosa moist,� throat clear.������������ Lips/Teeth/Gums: normal�
Neck: No muscle spasm or tenderness�
Cardiovascular: Heart: regular, murmur�
Pulses: dorsalis pedis 1+ left
Respiratory: Respiratory Effort/Chest Expansion: normal������� Auscultation: decreased BS bilaterally, clear to auscultation
Gastrointestinal: abdomen not tender, no distension, normal abdominal bowel sounds
Extremities:�Edema: left foot�Cyanosis: None�Trophic�changes: None
�
Neurology Exam:
Orientation: Alert, Oriented to self, Time, Place, season�
Memory: Intact for immediate. Slow to answer
Comprehension: Intact, slow
Two step command: Intact
Naming: Intact
Cranial Nerves:
�� CNII:�Pupillary light reflex: Intact����Visual Field: NT
�� CN III, IV, : Extraocular muscles: Intact�
�� CN V:�Facial Sensation�at�Forehead: Intact,�Maxilla: Intact,�Mandible: Intact
�� CN VII:�Facial movement: Symmetric
�� CN VIII:�Hearing: Normal
�� CN IX/X:�Speech & swallow: low volume�Position of Uvula: Midline
�� CN XI:�Shoulder shrug: Symmetric
�� CN XII:�Tongue protrusion: Midline
Sensory:
�� Light touch: Intact in bilateral upper and lower extremities
��
�
Reflexes:
�� Biceps: 2+ bilaterally
�� Brachioradialis: 2+ bilaterally
�� Triceps: 2+ bilaterally
�� Patellar: 2+ bilaterally
�� Achilles: absent left, none right
�� Babinski: Down going left
�� Karie: Negative bilaterally�
Cerebellar: Dysmetria/Ataxia: NT
Musculoskeletal:
Motor: (Manual muscle scale 0-5)�
Muscle SA EF WE EE FF FA HF KE DF EHL PF
Right� 4 4 4 4 - - - -
Left 4 4 4 4 4 4 4
�Right knee extension not tested due to protective sling/brace that patient is wearing
Tone: Normal in all extremities�
Range of Motion: Passively within normal limits in all extremities�
�
Lab Results
Labs
WBC 14.9 10^3/uL (4.8-10.8) H 04/29/25 04:23
RBC 3.67 10^6/uL (4.20-5.40) L 11/01/24 04:23
Hgb 9.4 g/dL (12.0-16.0) L 11/01/24 04:23
Hct 30.7 % (37.0-47.0) L 11/01/24 04:23
MCV 83.7 fL (81.0-99.0) 11/01/24 04:23
MCH 25.6 pg (27.0-31.0) L 11/01/24 04:23
MCHC 30.6 g/dL (33.0-37.0) L 11/01/24 04:23
RDW 19.4 % (11.5-14.5) H 11/01/24 04:23
Plt Count 342 10^3/uL (130-400) 11/01/24 04:23
MPV 9.5 fL (7.4-10.4) 11/01/24 04:23
Abs Immat Gran (auto) 0.1 10^3/uL (0-0.05) H 11/01/24 04:23
Absolute Neuts (auto) 11.6 10^3/uL (1.4-6.5) H 11/01/24 04:23
Absolute Lymphs (auto) 1.6 10^3/uL (1.2-3.4) 11/01/24 04:23
Absolute Monos (auto) 1.2 10^3/uL (0.1-0.6) H 11/01/24 04:23
Absolute Eos (auto) 0.3 10^3/uL (0-0.7) 11/01/24 04:23
Absolute Basos (auto) 0.1 10^3/uL (0-0.2) 11/01/24 04:23
CBC Comment Cancelled 10/28/24 18:35
Immature Gran % 0.5 % (0-0.5) 11/01/24 04:23
Neutrophils % 77.8 % (42.2-75.2) H 11/01/24 04:23
Lymphocytes % 10.5 % (20.5-51.1) L 11/01/24 04:23
Monocytes % 8.2 % (1.7-9.3) 11/01/24 04:23
Eosinophils % 2.1 % (0-6) 11/01/24 04:23
Basophils % 0.9 % (0-2) 11/01/24 04:23
Nucleated RBC % 0 % 11/01/24 04:23
PT 15.3 Sec (11.4-14.6) H 10/29/24 04:36
INR 1.18 10/29/24 04:36
APTT 36.3 Sec (23.4-35.0) H 10/29/24 04:36
pH 7.45 (7.35-7.45) 10/30/24 03:49
pCO2 31 mmHg (32-35) L 10/30/24 03:49
pO2 136 mmHg (83-108) H 10/30/24 03:49
HCO3 21.5 mmol/L (21-28) 10/30/24 03:49
Base Excess -1.8 mmol/L 10/30/24 03:49
ABG O2 Sat (Measured) 99.9 % (94-98) H 10/30/24 03:49
O2 Delivery Level 10/30/24 03:49
Sodium 140 mmol/L (135-145) 11/01/24 04:23
Potassium 3.9 mmol/L (3.5-5.1) 11/01/24 04:23
Chloride 105 mmol/L (98-107) 11/01/24 04:23
Carbon Dioxide 27 mmol/L (22-30) 11/01/24 04:23
BUN 26 mg/dl (7-17) H 11/01/24 04:23
Creatinine 2.5 mg/dL (0.6-1.0) H 11/01/24 04:23
Estimated Creat Clear 23 ml/min 11/01/24 04:23
eGFR 23.00 11/01/24 04:23
Glucose 207 mg/dl (70-99) H 11/01/24 04:23
Hemoglobin A1c 9.0 % (4.0-5.6) H 10/19/24 12:50
Calcium 8.6 mg/dl (8.4-10.2) 11/01/24 04:23
Phosphorus 3.2 mg/dl (2.5-4.5) 10/28/24 20:53
Magnesium 1.8 mg/dl (1.6-2.3) 10/29/24 05:00
Total Bilirubin 0.8 mg/dl (0.2-1.3) 11/01/24 04:23
Direct Bilirubin Cancelled 10/29/24 06:00
AST 19 U/L (14-36) 11/01/24 04:23
ALT < 10 U/L (0-35) 11/01/24 04:23
Alkaline Phosphatase 345 U/L (38-126) H 11/01/24 04:23
Creatine Kinase 24 U/L (30-135) L 10/20/24 10:38
Troponin I Cancelled 10/19/24 20:15
Total Protein 7.0 g/dl (6.3-8.2) 11/01/24 04:23
Albumin 3.1 g/dl (3.5-5.0) L 11/01/24 04:23
TSH (Reflex) 5.94 uIU/ml (0.47-4.68) H 10/19/24 12:50
Free T4 1.45 ng/dl (0.78-2.19) 10/19/24 12:50
Random Vancomycin 11.8 ug/ml 10/19/24 12:50
Hep Bs Antigen Negative (Negative) 10/28/24 07:25
SARS-CoV-2 Antigen Negative (Negative) 10/24/24 12:37
POC Glucose 125 mg/dl (70-99) H 11/01/24 12:09
Blood Type A POS 10/28/24 07:25
Antibody Screen Negative (Negative) 10/28/24 07:25
�
Diagnostic Results:�as per HPI�
�
Video Swallow Examination
Suspected vocal fold dysfunction along with delayed laryngeal vestibular closure resulted in trace silent aspiration of thin liquids. Use of head turn left improved airway protection but trace deep laryngeal penetration was noted with larger bolus
of thin liquid despite use of strategy. Trace to mild pharyngeal stasis mostly cleared with dry swallows. Patient is not interested in thickened liquids. Esophagus slow to empty.
Recommend
1. Regular solids and Thin Liquids.
2. Thin liquids by small single sips by cup or straw with head turn left during swallow.
3. Dry swallows.
4. Intermittent throat clear during swallow of thin liquids.
5. Oral care at least 3x/daily
6. Meds whole in applesauce.
7. Consider ENT consult to assess vocal fold integrity, given fairly new dysphonia that is likely contributing factor for aspiration.
8. Aspiration precautions.
9. ST will follow to ensure diet tolerance and educate in airway protection techniques.
Chest x-ray 10/29/2024
Lines and tubes: The tip of endotracheal tube is approximately 2.7 cm above the glenys. The tip of the dual-lumen dialysis catheter is in the region of the right atrium. The tip of the feeding tube is off the edge of the film but below the level of
the GE junction.
Lungs: The lungs are clear. No pleural effusion or pneumothorax.
Heart: The heart is mildly enlarged.
Osseous structures: Visualized osseous structures are within normal limits.
Peripheral venous ultrasound left upper extremity
FINDINGS: Normal blood flow is seen in the left internal jugular, subclavian, axillary, cephalic, basilic and brachial veins.
The deep veins within the left upper extremity proper are freely compressible with normal venous augmentation.
IMPRESSION:
No evidence of deep venous thrombosis of the left upper extremity.
Assessment: 48-year-old female with chronic nonhealing right foot wounds and gangrene, ESRD on hemodialysis Thursday) status post right BKA on 10/28/[address] Memo Whitmore.
�
Plan�
�PT/OT to increase independence with ADLs, improve balance, coordination, endurance, strength, mobility, community reintegration, decreased burden of care on others and family education.�
�
Right BKA: 10/28/24 vascular following; c/w gerri wrap, pain management with Tylenol and Oxy 2.5mg q4prn.
H/O CVA:without residual deficit. Continue aspirin and Plavix, blood pressure control (SBP less than 180 and diastolic less than 100 to participate with therapy for ischemic stroke). Continue to monitor neurologic status.�
Persistent Cough: VSE shows silent aspiration of thin liquid. Mucinex
Dysphagia: VSE shows trace silent aspiration of thin liquid. aspiration precautions.�Solid and thin liquids recommended. Speech following
Dysphonia: ENT consult was recommended by hospitalist for vocal fold integrity
Peripheral Polyneuropathy: h/o of poorly controlled Type I DM, prior A1Cs seem to be around 9-11%.repeat A1C% this admission 9.0%
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
chronic hearing loss, secondary to diabetic neuropathy
HTN: Carvedilol 3.125 mg p.o. twice a day, hydralazine 10 mg IV every 4 as needed monitor closely�
HLD: Atorvastatin 80 mg p.o. every afternoon
Coronary artery disease�: Aspirin, statin, beta-anabela�
CHF: Last Echo 12/2023 showing EF 65-70%, multivalvular disease, elevated PASP 60-65mmHg and Stage II diastolic dysfunction
- repeat Echo showing 75%EF, flattening of septum consistent w/ elevated RV volume, moderate , Mod. AR, Mod. TR. PASP decreased to 30-35mmHg. RV function is worse on today's echo when compared to prior 12/2023.
- clinical signs of acute on chronic volume overload
- was on 2L NC, intermittently requiring, more so at night
- c/w Coreg, Bumex, dialysis w/ ultrafiltration per Nephro�
#Nonischemic Myocardial Injury
#Elevated troponins (resolved)
- chest pain and pressure, troponinemia, ECG showing sinus rhythm with PACs
- trops peaked
- Echo this admission with worsening RV function compared to December 2023
- Pt refusing heart cath -- Nuclear stress test -- no perfusion defect seen
#ESRD (on dialysis MWF)
#Hyperkalemia
- R sided tunnelled dialysis cath. last received 10/18/2024
- Is on Bumex POA, patient states she makes urine
- c/w dialysis MWF per nephro w/ extra fluid removal
IDDM Type I: - h/o of poorly controlled Type I DM, prior A1Cs seem to be around 9-11%.-
- repeat A1C% this admission 9.0%
- c/w 3U long acting QHS and 2U AC
- POC glucose checks
- c/w statin
Anemia: Likely multifactorial.� Continue to monitor.�
Psych: Psychology consult.� Monitor mood, adjust medications as needed.�
Skin/New stage 1 sacral wound Per hospitalist note- continue wound care protocol and weight shift q 2 hours, [email or web address] [email or web address] for pressure sores/rashes/lesions.�
Pain: acetaminophen 650 every 4 as needed or oxycodone 2.5 every 4 as needed �
Bowel: Colace and Senna, PRN bisacodyl.�
Bladder: Time void, PVRs, PRN straight cath.�
GI Prophylaxis: Pantoprazole�40 mg daily
DVT Prophylaxis: Mechanical and heparin 5000 unit SQ every 12 hours
Pulmonary: Incentive spirometry�
Safety: Continue to reinforce assistance with all transfers.�
Code Status:� Full code
Dispo�(date/plan/equipment needs): Home with family care.� Social history reviewed.�
�
Functional and Medical Goals:�Modified Independent with ADL�s, ambulation, transfers�
�
Discharge Destination: Would recommend�acute inpatient rehabilitation for�PT/OT to increase independence with ADLs, coordination, endurance, strength, community reintegration, decreased burden of care on others and family education at a facility
that can accommodate hemodialysis treatment
�
Summary of recommendations:
Pain: acetaminophen 650 every 4 as needed or oxycodone 2.5 every 4 as needed. Pain to be under control on oral medications prior to discharge. T/c anti neuropathic medicine if develops phantom pain and if ok from nephrology stand
DVT Prophylaxis: Mechanical and heparin 5000 unit SQ every 12 hours
Skin/New stage 1 sacral wound Per hospitalist note- continue wound care protocol. weight shift q 2 hours, roho cushion. monitor for pressure sores/rashes/lesions.�
�
Thank you for allowing me to care for your patient. Please contact me with any questions or concerns.

Documented by User: Alvin Kaiser MD 11/02/24 23:24
Consultation - Medical
-
Referring Provider:�Donte Rollins
Chief Complaint:�Debility, s/p right BKA
�
History of Present Illness:�49-year-old female PMH of (right diabetic foot infection s/p post angiogram with stent placement on 07/08/2024, fifth toe amputation and revision fourth toe amputation in December, [place] artery atherosclerosis with chronic
nonhealing right foot wounds and gangrene, right eye blindness, ESRD on hemodialysis Thursday) Poorly controlled diabetes with [place] artery atherosclerosis
status post right BKA on 10/28/[address] Memo Whitmore. Patient also with persistent cough since 10/22 with productive sputum despite Mucinex and improvement in fluid status with dialysis. Concern for aspiration. Video swallow study requested
confirmed trace silent aspiration with thin liquids. Patient on 1800-calorie diabetic diet with 1500ml liquid restrictions.
Past Medical History:�right diabetic foot infection s/p post angiogram with stent placement on 07/08/2024, fifth toe amputation and revision fourth toe amputation in December, [place] artery atherosclerosis with chronic nonhealing right foot wounds and
gangrene, right eye blindness, ESRD on hemodialysis, CKD, IDDM, CHF, PAD
Procedure History:�Peripheral arterial disease status post diagnostic arteriogram, intravascular lithotripsy of the posterior tibial artery and proximal SFA, balloon angioplasty and nitroglycerin injection of posterior tibial artery on 12/21/23
Family History:�non contributory
�
Social History:�
Functional Level Premorbidly: Independent with ADLs and functional mobility with rolling walker. Has been progressively requiring more assistance from her son for the past 2 months.
Functional Level Currently:�Bed mobility�supervision, transfers�mod assist x 2 for lifting, weight shifting, maintaining balance, visual cues for proper technique,, toileting�max assist,
�
Tobacco:�Denies�
Alcohol:�Denies�
Drug use:�Denies�
�
Lives with:�Family
24-hour assistance available:�No
Number of floors:�Apartment with elevator access
# steps to enter:�None
Driving:�No
Occupation:�disabled
�
�
Allergies:�
Allergy/AdvReac Type Severity Reaction Status Date / Time
latex Allergy Hives Verified 07/04/24 11:33
�
Review of Systems:�
Constitutional: (x) abNormal _fatigue
Eye: (x) Normal _
Ear/Nose/Throat: (x) abNormal _persistent cough
Respiratory: (x) Normal _
Cardiovascular: (x) Normal _
Gastrointestinal: (x) abNormal _ESR on dialysis MWF
Genitourinary: (x) abNormal _ESRD on HD
Musculoskeletal: (x) abNormal _s/p right BKA
Integumentary: (x) abNormal _multiple wounds at different healing stage
Neurologic: (x) Normal _
Psychiatric: (x) abNormal _anxious about limb loss and being able to walk
Endocrine: (x) Normal _
Hematologic/Lymphatic: (x) Normal _
Allergic/Immunologic: (x) Normal _
�
Medications:�
Active Current Visit Medication List
Category Date Time Status
Acetaminophen [Tylenol] Med 10/30/24 23:37 Active
650 mg PO Q4HPRN PRN
Albumin Human 25% 50 ml [Flexbumin 25% For Hemodialysis Med 11/02/24 08:00 Ordered
]
12.5 grams IV HD-Q1HPRN PRN
Aspirin Chewable [Low Strength Aspirin] Med 10/31/24 12:42 Active
81 mg PO DAILY
Atorvastatin [Lipitor] Med 10/18/24 18:00 Active
80 mg PO QPM
Bisacodyl [Dulcolax] Med 10/28/24 18:25 Active
10 mg RECTAL DAILYPRN PRN
Bumetanide [Bumex] Med 10/31/24 12:43 Active
2 mg PO SuTuThSa@0800
Carvedilol [Coreg] Med 10/31/24 13:19 Active
3.125 mg PO BID
Clopidogrel Bisulfate [Plavix] Med 10/31/24 13:20 Active
75 mg PO DAILY
Dextrose 50%-Water [Dextrose 50% Syringe] Med 10/18/24 15:27 Active
12.5 grams IV [id number] PRN
Epoetin Saran-Epbx [Retacrit] Med 11/02/24 08:00 Once
4,000 units IV HD-ONCE ONE
Ergocalciferol [Drisdol (Vitamin D2)] Med 10/31/24 13:19 Active
50,000 units PO HANSON
Flush (0.9% Sodium Chloride) [Flush (Nss)] Med 10/18/24 14:00 Active
See Dose Instructions IV PER PROTOCOL
Glucagon [GlucaGen] Med 10/18/24 15:27 Active
1 mg IM PRN PRN
Guaifenesin [Mucinex] Med 10/31/24 03:37 Active
600 mg PO BID PRN
Heparin Med 10/18/24 20:00 Active
5,000 units SC Q12
Heparin Med 11/02/24 08:00 Once
See Dose Instructions INTRACATH HD-ONCE ONE
HydrALAZINE [Apresoline] Med 10/28/24 21:17 Active
10 mg IV Q4HPRN PRN
Insulin Aspart Corrective Low [Novolog Flexpen-Low Med 10/31/24 07:30 Active
Resistance]
See Protocol SC AC
Insulin Aspart Pen [Novolog Flexpen] Med 10/31/24 07:30 Active
2 units SC AC
Insulin Glargine Lantus [Lantus] 3 units Med 10/18/24 22:00 Active
Subcutaneous Insulin Syringe [Syringe-Insulin] 0 unit
SC HS
Lactobac/Bifidobac [Visbiome] Med 10/31/24 12:42 Active
1 cap PO DAILY
Lidocaine [Lidocaine 4% Patch] Med 10/26/24 16:16 Active
1 patch TOPICAL DAILYPRN PRN
Mannitol 25% Med 11/02/24 08:00 Ordered
12.5 grams IV HD-Q1HPRN PRN
Oxycodone [Roxicodone] Med 11/01/24 09:44 Active
2.5 mg PO Q4HPRN PRN
Pantoprazole [Protonix] Med 11/01/24 08:00 Active
40 mg PO DAILY
Petrolatum/Mineral Oil [Hydrophor] Med 10/19/24 08:00 Active
See Dose Instructions TOPICAL DAILY
Remove Patch [Remove Lidocaine Patch] Med 10/31/24 19:01 Active
See Dose Instructions REMOVE DAILYPRN PRN
Sodium Chloride [Sodium Chloride 4 Meq/ml For Med 11/02/24 08:00 Ordered
Hemodialysis]
10 ml IV HD-Q1HPRN PRN
�
Vitals:�
Temp Pulse Resp BP Pulse Ox
97.8 F 85 13 128/56 100
11/01/24 11:30 11/01/24 10:00 11/01/24 10:00 11/01/24 07:34 11/01/24 12:45
Height 5 ft 3 in
Actual Weight 62.7 kg
Body Mass Index (BMI) 24.5
�
Physical Exam:�
General Appearance/Observation: Well-developed, well-nourished female in no apparent distress.�Lying in bed
Pain/Comfort Assessment: right residual limb
Mood/Affect: Anxious�
�
Integumentary/Operative Site:�right residual limb wrapped and in limb protector��
�� Other Type of Wound: sacral wound-per chart note- not visualized
Right arm PICC line
��
Eyes: Conjunctiva/Lids: normal���� Pupils: pupils equal round
Ears/Nose/Throat: oral mucosa moist,� throat clear.������������ Lips/Teeth/Gums: normal�
Neck: No muscle spasm or tenderness�
Cardiovascular: Heart: regular, murmur�
Pulses: dorsalis pedis 1+ left
Respiratory: Respiratory Effort/Chest Expansion: normal������� Auscultation: decreased BS bilaterally, clear to auscultation
Gastrointestinal: abdomen not tender, no distension, normal abdominal bowel sounds
Extremities:�Edema: left foot�Cyanosis: None�Trophic�changes: None
�
Neurology Exam:
Orientation: Alert, Oriented to self, Time, Place, season�
Memory: Intact for immediate. Slow to answer
Comprehension: Intact, slow
Two step command: Intact
Naming: Intact
Cranial Nerves:
�� CNII:�Pupillary light reflex: Intact����Visual Field: NT
�� CN III, IV, : Extraocular muscles: Intact�
�� CN V:�Facial Sensation�at�Forehead: Intact,�Maxilla: Intact,�Mandible: Intact
�� CN VII:�Facial movement: Symmetric
�� CN VIII:�Hearing: Normal
�� CN IX/X:�Speech & swallow: low volume�Position of Uvula: Midline
�� CN XI:�Shoulder shrug: Symmetric
�� CN XII:�Tongue protrusion: Midline
Sensory:
�� Light touch: Intact in bilateral upper and lower extremities
��
�
Reflexes:
�� Biceps: 2+ bilaterally
�� Brachioradialis: 2+ bilaterally
�� Triceps: 2+ bilaterally
�� Patellar: 2+ bilaterally
�� Achilles: absent left, none right
�� Babinski: Down going left
�� Karie: Negative bilaterally�
Cerebellar: Dysmetria/Ataxia: NT
Musculoskeletal: Motor: (Manual muscle scale 0-5)�
Muscle SA EF WE EE FF FA HF KE DF EHL PF
Right� 4 4 4 4 - - - -
Left 4 4 4 4 4 4 4
�Right knee extension not tested due to protective sling/brace that patient is wearing
Tone: Normal in all extremities�
Range of Motion: Passively within normal limits in all extremities�
�
Lab Results
Labs
WBC 14.9 10^3/uL (4.8-10.8) H 11/01/24 04:23
RBC 3.67 10^6/uL (4.20-5.40) L 11/01/24 04:23
Hgb 9.4 g/dL (12.0-16.0) L 11/01/24 04:23
Hct 30.7 % (37.0-47.0) L 11/01/24 04:23
MCV 83.7 fL (81.0-99.0) 11/01/24 04:23
MCH 25.6 pg (27.0-31.0) L 11/01/24 04:23
MCHC 30.6 g/dL (33.0-37.0) L 11/01/24 04:23
RDW 19.4 % (11.5-14.5) H 11/01/24 04:23
Plt Count 342 10^3/uL (130-400) 11/01/24 04:23
MPV 9.5 fL (7.4-10.4) 11/01/24 04:23
Abs Immat Gran (auto) 0.1 10^3/uL (0-0.05) H 11/01/24 04:23
Absolute Neuts (auto) 11.6 10^3/uL (1.4-6.5) H 11/01/24 04:23
Absolute Lymphs (auto) 1.6 10^3/uL (1.2-3.4) 11/01/24 04:23
Absolute Monos (auto) 1.2 10^3/uL (0.1-0.6) H 11/01/24 04:23
Absolute Eos (auto) 0.3 10^3/uL (0-0.7) 11/01/24 04:23
Absolute Basos (auto) 0.1 10^3/uL (0-0.2) 11/01/24 04:23
CBC Comment Cancelled 10/28/24 18:35
Immature Gran % 0.5 % (0-0.5) 11/01/24 04:23
Neutrophils % 77.8 % (42.2-75.2) H 11/01/24 04:23
Lymphocytes % 10.5 % (20.5-51.1) L 11/01/24 04:23
Monocytes % 8.2 % (1.7-9.3) 11/01/24 04:23
Eosinophils % 2.1 % (0-6) 11/01/24 04:23
Basophils % 0.9 % (0-2) 11/01/24 04:23
Nucleated RBC % 0 % 11/01/24 04:23
PT 15.3 Sec (11.4-14.6) H 10/29/24 04:36
INR 1.18 10/29/24 04:36
APTT 36.3 Sec (23.4-35.0) H 10/29/24 04:36
pH 7.45 (7.35-7.45) 10/30/24 03:49
pCO2 31 mmHg (32-35) L 10/30/24 03:49
pO2 136 mmHg (83-108) H 10/30/24 03:49
HCO3 21.5 mmol/L (21-28) 10/30/24 03:49
Base Excess -1.8 mmol/L 10/30/24 03:49
ABG O2 Sat (Measured) 99.9 % (94-98) H 10/30/24 03:49
O2 Delivery Level 10/30/24 03:49
Sodium 140 mmol/L (135-145) 11/01/24 04:23
Potassium 3.9 mmol/L (3.5-5.1) 11/01/24 04:23
Chloride 105 mmol/L (98-107) 11/01/24 04:23
Carbon Dioxide 27 mmol/L (22-30) 11/01/24 04:23
BUN 26 mg/dl (7-17) H 11/01/24 04:23
Creatinine 2.5 mg/dL (0.6-1.0) H 11/01/24 04:23
Estimated Creat Clear 23 ml/min 11/01/24 04:23
eGFR 23.00 11/01/24 04:23
Glucose 207 mg/dl (70-99) H 11/01/24 04:23
Hemoglobin A1c 9.0 % (4.0-5.6) H 10/19/24 12:50
Calcium 8.6 mg/dl (8.4-10.2) 11/01/24 04:23
Phosphorus 3.2 mg/dl (2.5-4.5) 10/28/24 20:53
Magnesium 1.8 mg/dl (1.6-2.3) 10/29/24 05:00
Total Bilirubin 0.8 mg/dl (0.2-1.3) 11/01/24 04:23
Direct Bilirubin Cancelled 10/29/24 06:00
AST 19 U/L (14-36) 11/01/24 04:23
ALT < 10 U/L (0-35) 11/01/24 04:23
Alkaline Phosphatase 345 U/L (38-126) H 11/01/24 04:23
Creatine Kinase 24 U/L (30-135) L 10/20/24 10:38
Troponin I Cancelled 10/19/24 20:15
Total Protein 7.0 g/dl (6.3-8.2) 11/01/24 04:23
Albumin 3.1 g/dl (3.5-5.0) L 11/01/24 04:23
TSH (Reflex) 5.94 uIU/ml (0.47-4.68) H 10/19/24 12:50
Free T4 1.45 ng/dl (0.78-2.19) 10/19/24 12:50
Random Vancomycin 11.8 ug/ml 10/19/24 12:50
Hep Bs Antigen Negative (Negative) 10/28/24 07:25
SARS-CoV-2 Antigen Negative (Negative) 10/24/24 12:37
POC Glucose 125 mg/dl (70-99) H 11/01/24 12:09
Blood Type A POS 10/28/24 07:25
Antibody Screen Negative (Negative) 10/28/24 07:25
�
Diagnostic Results:�as per HPI�
�
Video Swallow Examination
Suspected vocal fold dysfunction along with delayed laryngeal vestibular closure resulted in trace silent aspiration of thin liquids. Use of head turn left improved airway protection but trace deep laryngeal penetration was noted with larger bolus
of thin liquid despite use of strategy. Trace to mild pharyngeal stasis mostly cleared with dry swallows. Patient is not interested in thickened liquids. Esophagus slow to empty.
Recommend
1. Regular solids and Thin Liquids.
2. Thin liquids by small single sips by cup or straw with head turn left during swallow.
3. Dry swallows.
4. Intermittent throat clear during swallow of thin liquids.
5. Oral care at least 3x/daily
6. Meds whole in applesauce.
7. Consider ENT consult to assess vocal fold integrity, given fairly new dysphonia that is likely contributing factor for aspiration.
8. Aspiration precautions.
9. ST will follow to ensure diet tolerance and educate in airway protection techniques.
Chest x-ray 10/29/2024
Lines and tubes: The tip of endotracheal tube is approximately 2.7 cm above the glenys. The tip of the dual-lumen dialysis catheter is in the region of the right atrium. The tip of the feeding tube is off the edge of the film but below the level of
the GE junction.
Lungs: The lungs are clear. No pleural effusion or pneumothorax.
Heart: The heart is mildly enlarged.
Osseous structures: Visualized osseous structures are within normal limits.
Peripheral venous ultrasound left upper extremity
FINDINGS: Normal blood flow is seen in the left internal jugular, subclavian, axillary, cephalic, basilic and brachial veins.
The deep veins within the left upper extremity proper are freely compressible with normal venous augmentation.
IMPRESSION:
No evidence of deep venous thrombosis of the left upper extremity.
Assessment:
48-year-old female with chronic nonhealing right foot wounds and gangrene, ESRD on hemodialysis Thursday) status post right BKA on 10/28/[address] Memo Whitmore.
�
Plan�
�PT/OT to increase independence with ADLs, improve balance, coordination, endurance, strength, mobility, community reintegration, decreased burden of care on others and family education.�
�
Right BKA: 10/28/24 vascular following; c/w egrri wrap, pain management with Tylenol and Oxy 2.5mg q4prn. Does not want gabapentin, tried it before and didn't like it.
H/O CVA:without residual deficit. Continue aspirin and Plavix, blood pressure control (SBP less than 180 and diastolic less than 100 to participate with therapy for ischemic stroke). Continue to monitor neurologic status.�
Persistent Cough: VSE shows silent aspiration of thin liquid. Mucinex
Dysphagia: VSE shows trace silent aspiration of thin liquid. aspiration precautions.�Solid and thin liquids recommended. Speech following
Dysphonia: ENT consult was recommended by hospitalist for vocal fold integrity
Peripheral Polyneuropathy: h/o of poorly controlled Type I DM, prior A1Cs seem to be around 9-11%.repeat A1C% this admission 9.0%
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
chronic hearing loss, secondary to diabetic neuropathy
HTN: Carvedilol 3.125 mg p.o. twice a day, hydralazine 10 mg IV every 4 as needed monitor closely�
HLD: Atorvastatin 80 mg p.o. every afternoon
Coronary artery disease�: Aspirin, statin, beta-anabela�
CHF: Last Echo 12/2023 showing EF 65-70%, multivalvular disease, elevated PASP 60-65mmHg and Stage II diastolic dysfunction
- repeat Echo showing 75%EF, flattening of septum consistent w/ elevated RV volume, moderate , Mod. AR, Mod. TR. PASP decreased to 30-35mmHg. RV function is worse on today's echo when compared to prior 12/2023.
- clinical signs of acute on chronic volume overload
- was on 2L NC, intermittently requiring, more so at night
- c/w Coreg, Bumex, dialysis w/ ultrafiltration per Nephro�
#Nonischemic Myocardial Injury
#Elevated troponins (resolved)
- chest pain and pressure, troponinemia, ECG showing sinus rhythm with PACs
- trops peaked
- Echo this admission with worsening RV function compared to December 2023
- Pt refusing heart cath -- Nuclear stress test -- no perfusion defect seen
#ESRD (on dialysis MWF)
#Hyperkalemia
- R sided tunnelled dialysis cath. last received 10/18/2024
- Is on Bumex POA, patient states she makes urine
- c/w dialysis MWF per nephro w/ extra fluid removal
IDDM Type I: - h/o of poorly controlled Type I DM, prior A1Cs seem to be around 9-11%.-
- repeat A1C% this admission 9.0%
- c/w 3U long acting QHS and 2U AC
- POC glucose checks
- c/w statin
Anemia: Likely multifactorial.� Continue to monitor.�
Psych: Psychology consult.� Monitor mood, adjust medications as needed.�
Skin/New stage 1 sacral wound Per hospitalist note- continue wound care protocol and weight shift q 2 hours, roho cushion.monitor for pressure sores/rashes/lesions.�Multivitamin. Consider left multipodous boot.
Pain: acetaminophen 650 every 4 as needed or oxycodone 2.5 every 4 as needed �
Bowel: Colace and Senna, PRN bisacodyl.�
Bladder: Time void, PVRs, PRN straight cath.�
GI Prophylaxis: Pantoprazole�40 mg daily
DVT Prophylaxis: Mechanical and heparin 5000 unit SQ every 12 hours
Pulmonary: Incentive spirometry�
Safety: Continue to reinforce assistance with all transfers.�
Code Status:� Full code
Dispo�(date/plan/equipment needs): Home with family care.� Social history reviewed.�
Functional and Medical Goals:�Modified Independent with ADL�s, ambulation, transfers�
Discharge Destination: Would recommend�acute inpatient rehabilitation for�PT/OT to increase independence with ADLs, coordination, endurance, strength, community reintegration, decreased burden of care on others and family education at a facility
that can accommodate hemodialysis treatment
Attending Statement:
I saw and examined the patient 11/02/24. Reviewed care plan with patient, therapy, nursing, and physician resident programs assistant. I agree with the above subjective and physical exam, and plan as documented by THIERRY Otto with adjustments made as necessary.
Summary of recommendations:
Discharge Destination: �acute inpatient rehabilitation for�PT/OT to increase independence with ADLs, coordination, endurance, strength, community reintegration, decreased burden of care on others and family education at a facility that can
accommodate hemodialysis treatment
Pain: acetaminophen 650 every 4 as needed or oxycodone 2.5 every 4 as needed. Pain to be under control on oral medications prior to discharge. T/c anti neuropathic medicine if develops phantom pain and if ok from nephrology stand
DVT Prophylaxis: Mechanical and heparin 5000 unit SQ every 12 hours
Skin/New stage 1 sacral wound Per hospitalist note- continue wound care protocol. weight shift q 2 hours, roho cushion. monitor for pressure sores/rashes/lesions.� Multivitamin. Consider left multipodous boot.
�
Thank you for allowing me to care for your patient. Please contact me with any questions or concerns.
[2024-11-01 17:44] LABS: Glucose - Point of Care 124 mg/dl (70-99)
[2024-11-01] MEDS: LIPITOR PO (18:24)
--- NOTE | 2024-11-01 18:25 | PTCARENOTE ---
Pt asking for SpO2 check after ice cream. SpO2 88-92%. Pt requesting O2 to be applied. 1L NC with SpO2 97%. Discussed ST recommendation of taking pills in applesauce and pt seemed agreeable to idea but refused lipitor.
[2024-11-01 19:17] VITALS: BP 111/46
--- NOTE | 2024-11-01 20:00 | PTCARENOTE ---
rec`d pt at 1900. AAOx3. assessment as documented. refused heparin and coreg but wanted pain medicine. Pt educated about medication compliance. POX 100% on 1L of O2. coarse, crackle lung sounds anterior and posterior. Pt doing acapella at bedside.
PIVS flushed and patent. rt tunneled HD cath. call ambriz in reach, safe environment maintained.
[2024-11-01] MEDS: LANTUS 0.03 UNITS SC (23:08)
[2024-11-01 23:17] LABS: Glucose - Point of Care 341 mg/dl (70-99)
[2024-11-02] VITALS (27 sets, daily range): BP systolic 110–162; BP diastolic 51–76; PULSE 83–84; O2SAT 99–100; BMI 24.8
[2024-11-02] MEDS: ROXICODONE 2.5 MG PO ×4 (04:15→20:46)
[2024-11-02 04:23] LABS: % Eosinophils 1.1 % (0-6); % Immature Granulocytes 0.5 % (0-0.5); % Lymphocytes 13.3 % (20.5-51.1); % Neutrophils 77.1 % (42.2-75.2); Absolute Basophils 0.2 10^3/uL (0-0.2); Absolute Eosinophils 0.2 10^3/uL (0-0.7); Absolute Immature Granulocytes 0.1 10^3/uL (0-0.05); Absolute Lymphocytes 2.1 10^3/uL (1.2-3.4); Absolute Monocytes 1.1 10^3/uL (0.1-0.6); Hematocrit 30.7 % (37.0-47.0); Hemoglobin 9.6 g/dL (12.0-16.0); Mean Corp Hgb Conc. 31.3 g/dL (33.0-37.0); Mean Corpuscular Hgb 26.6 pg (27.0-31.0); Mean Platelet Volume 8.9 fL (7.4-10.4); Nucleated Red Blood Cells % 0 %; Platelet Count 324 10^3/uL (130-400); Red Blood Cell Count 3.61 10^6/uL (4.20-5.40); Red Cell Dist. Width 19.5 % (11.5-14.5); White Blood Cell Count 15.6 10^3/uL (4.8-10.8)
--- NOTE | 2024-11-02 04:36 | PTCARENOTE ---
pt refused morning hygiene.
[2024-11-02 04:44] LABS: ALT (SGPT) < 10 U/L (0-35); AST (SGOT) 19 U/L (14-36); Albumin 3.2 g/dl (3.5-5.0); Alkaline Phosphatase 310 U/L (38-126); Blood Urea Nitrogen 35 mg/dl (7-17); Carbon Dioxide 27 mmol/L (22-30); Chloride 104 mmol/L (98-107); Estimated Creatinine Clearance 17 ml/min; Glucose 89 mg/dl (70-99); Potassium 4.4 mmol/L (3.5-5.1); Sodium 142 mmol/L (135-145); Total Bilirubin 0.9 mg/dl (0.2-1.3); Total Protein 7.3 g/dl (6.3-8.2); eGFR 16.48
[2024-11-02] MEDS: TYLENOL 650 MG PO ×3 (06:30→22:55)
[2024-11-02 08:10] LABS: Glucose - Point of Care 75 mg/dl (70-99)
[2024-11-02] MEDS: NOVOLOG FLEXPEN-LOW RESISTANCE SC ×3 (08:58→18:37)
[2024-11-02] MEDS: NOVOLOG FLEXPEN SC ×2 (08:58→18:36)
[2024-11-02] MEDS: HEPARIN SC ×2 (08:59→20:45)
[2024-11-02] MEDS: COREG PO ×2 (08:59→20:45)
[2024-11-02] MEDS: HYDROPHOR 1 APPLIC TOPICAL (08:59)
[2024-11-02] MEDS: PROTONIX 40 MG PO (09:08)
[2024-11-02] MEDS: VISBIOME 1 CAP PO (09:09)
[2024-11-02] MEDS: PLAVIX 75 MG PO (09:09)
[2024-11-02] MEDS: LOW STRENGTH ASPIRIN 81 MG PO (09:09)
--- NOTE | 2024-11-02 09:27 | W.PN.HOSP.TC ---
Today's Communication/Plan
-
plan for d/c to [facility] tomorrow
Assessment / Plan
Assessment / Plan
49 year old female presenting with extreme fatigue s/p Dialysis
#Persistent Productive Cough
- persistent cough since 10/22, productive of sputum -- continued despite Mucinex & improvement in fluid status w/ Dialysis
- concern for aspiration -- VSE shows silent aspiration of thin liquid -- recommending ENT consult for vocal fold integrity given dysphonia
- repeat CXR 11/02/2024 no acute cardiopulmonary process
- Pt refusing mucinex and antihistamines for post nasal drip. Agreeable to chest PT.
- productive sputum is yellow/thick, suspicious for bronchitis w/ physical exam findings and new rising leukocytosis
- start doxycycline
#R BKA POD4
#Nonhealing R Dorsal Foot Wound
- vascular following; c/w gerri wrap, pain management
- stable for downgrade to med/surg
(Would like to go to [facility] after surgery) -- physiatry consult
- post-op pain control with Tylenol and Oxy 2.5mg q4prn
#Acute Exacerbation of HFpEF
- Last Echo 12/2023 showing EF 65-70%, multivalvular disease, elevated PASP 60-65mmHg and Stage II diastolic dysfunction
- repeat Echo showing 75%EF, flattening of septum consistent w/ elevated RV volume, moderate , Mod. AR, Mod. TR. PASP decreased to 30-35mmHg. RV function is worse on today's echo when compared to prior 12/2023.
- clinical signs of acute on chronic volume overload
- was on 2L NC, intermittently requiring, more so at night
- c/w Coreg, Bumex, dialysis w/ ultrafiltration per Nephro
#ESRD (on dialysis MWF)
#Hyperkalemia
- R sided tunnelled dialysis cath. last received 10/18/2024
- Is on Bumex POA, patient states she makes urine
- c/w dialysis MWF per nephro w/ extra fluid removal
#Nonischemic Myocardial Injury
#Elevated troponins (resolved)
- chest pain and pressure, troponinemia, ECG showing sinus rhythm with PACs
- trops peaked
- Echo this admission with worsening RV function compared to December 2023
- Pt refusing heart cath -- Nuclear stress test -- no perfusion defect seen
#New stage 1 sacral wound - clean, dressing dry and intact
CHRONIC STABLE
#Multiple acute on chronic non-healing ulcers of various stages
#R heel with blistering and suspected stage 3 Pressure Injury
- non-toxic at this time
- wound care following, c/w dressings and ointment
#Pica Disorder
#H/o Depression
- patient endorses a compulsion to eat matches. She states she has been doing so since she was young, and that during times of stress she may consume as many as 100 matches per day.
- Matches contain potassium chlorate, sulfur, glue, red phosphorus, ammonium phosphate and paraffin, all of which are at the very least nephrotoxic
- Psych consulted; nephro aware.
- Psych rec. antidepressants but patient not receptive to the idea at this time
#Anemia, likely secondary to chronic disease and ESRD
- hgb at baseline, no signs of active bleeding
- given one dose EPO
- transfuse to keep hgb >7
#IDDM Type I (correction, further chart review reveals Type I, prior documentation by me says Type II; it is Type I).
- h/o of poorly controlled Type I DM, prior A1Cs seem to be around 9-11%
- repeat A1C% this admission 9.0%
- c/w 3U long acting QHS and 2U AC
- POC glucose checks
- c/w statin
#H/o R metatarsal amputation
#H/o osteomyelitis
#h/o CVA w/o residual deficit - c/w aspirin/plavix
#h/o Paroxysmal SVT
#H/o Guillain-Rowland syndrome w/o residual deficit
#chronic hearing loss, secondary to diabetic neuropathy
Regular Diet
DVT Ppx: Heparin SC
Code Status: Full Code
Anticipated Discharge: Within 24 hours
Subjective/Interval History
-
Date of Service: November 02, 2024
No acute overnight events. Patient still having productive cough, no fevers, chills, nausea, vomiting, diarrhea, chest pain.
Objective Data
-
Labs:
Laboratory Results
11/02/24
04:11
WBC 15.6 H
Hgb 9.6 L
Hct 30.7 L
Plt Count 324
Sodium 142
Potassium 4.4
Chloride 104
Carbon Dioxide 27
BUN 35 H
Creatinine 3.3 H
Glucose 89
Calcium 9.0
Total Bilirubin 0.9
AST 19
ALT < 10
Alkaline Phosphatase 310 H
Vital Signs:
Vital Signs
Temp Pulse Resp BP Pulse Ox
98.1 F 87 15 112/51 99
11/02/24 08:00 11/02/24 06:00 11/02/24 06:00 11/02/24 04:17 11/02/24 06:00
I&O
11/01/24 11/02/24 11/03/24
06:59 06:59 06:59
Intake Total 460 / 460 240 / 240
Balance 460 / 460 240 / 240
Review of Systems
-
History Source: Patient
Constitutional: Reports No Symptoms
EENT: Reports Runny Nose
Respiratory: Reports Cough; Denies Hemoptysis, Trouble Breathing or Wheezing
Cardiac: Reports No Symptoms
Abdomen/GI: Reports No Symptoms
Breast: Reports No Symptoms
Genitourinary: Reports No Symptoms
Musculoskeletal: Reports Other (pain in R leg s/p BKA)
Skin: Reports No Symptoms
Neuro: Reports No Symptoms
Physical Exam
-
General: No Apparent Distress and Appears Chronically Ill
HEENT: Normocephalic, Atraumatic, Moist Mucous Membranes, [place] Conjunctivae, No Ptosis, Nose Appears Normal, Ears Appear Normal and Oxygen
Respiratory: Rhonchi and Non Labored Respirations; Negative Wheezes or Rales
Cardiac: Regular Rhythm, S1/S2 and Murmur; Negative Rub
GI: Soft, Nontender, Nondistended and Normal Bowel Sounds
Musculoskeletal: No Clubbing, No Cyanosis and No Edema
Skin: Warm, Dry and IV Access / Catheter Site
Neuro: Awake, Alert, Oriented and No Motor Deficits
[2024-11-02] MEDS: MUCINEX 600 MG PO (09:45)
[2024-11-02] MEDS: LIDOCAINE 4% PATCH 1 PATCH TOPICAL (09:45)
--- NOTE | 2024-11-02 09:45 | PTCARENOTE ---
Rec'd pt at 0800 resting in bed. Overall is alert and oriented but particular about what she wants and doesn't want. Speech is clear although 'strained' in nature and pt admits it is not her normal tone of voice. Pt with underlying very poor vision
and is AGDAAGUX. Admits to lower back/buttock pain and R stump pain- 8/10 - Medicated at 0912 with Roxicodone 2.5 mg and at 0945 with Lidocaine patch on sacrum/buttock stage 2 wound. HIDALGO. Pt with R BKA that is gerri wrapped with stump protector , warm
with + popliteal pulse. L breast wound healing with scab formation. Heel protector on L heel. Sacrum with stage 2 wound with pink wound bed. Respirs are shallow but non-labored on 1L nc with sats of 98-100%- tried pt on RA but sats dipped to 85% and
pt stated she felt more comfortable with O2 on. BS are coarse with crackles throughout. Coughing a moist prod cough for yellowish secretions. Dr Medina in when pt coughed and saw the mucous. Medicated with Mucinex at 0945. Monitor SR with isolated
PAC's. L PT and DP pulse with the doppler. +2 LE edema. Tr LUE edema. Denies chest pain. VS as documented. Refused her Coreg and Heparin. Abd is soft with hypoactive BS. Pt ate a few bites of lyndon cracker but wanted nothing else for breakfast.
Did take meds with applesauce and some OJ. without difficulty in swallowing. Denies nausea. States she is just not hungry. Pt is oliguric-denies need to void currently. Capped int intact R arm. R chest wall with tunneled HD Cath. Pt turned and
repositioned. Skin and mouth care given. Plan of care reviewed with pt and call katina in reach. Was on the phone with [facility]-plan is for DC to their facility when they have a bed- most likely will have a bed tomorrow.
[2024-11-02 10:37] LABS: Glucose - Point of Care 103 mg/dl (70-99)
--- NOTE | 2024-11-02 10:40 | PTCARENOTE ---
Repositioned. Complete CHG bath given. Blood glucose recheck 103. Taking meds whole in applesauce.
[2024-11-02] MEDS: VIBRAMYCIN 100 MG PO ×2 (11:24→20:45)
--- NOTE | 2024-11-02 11:25 | PTCARENOTE ---
Tylenol 650 mg Po given for 710 R stump and back soreness. Turned and repositioned. Denies feeling hungry for anything- encouraged to try to eat something-pt states she will think about it.
[2024-11-02 11:45] LABS: Urine Albumin 3+ (Neg - Trace); Urine Bilirubin 1+ (Negative); Urine Character Cloudy (Clear); Urine Color Amber; Urine Glucose Negative (Negative); Urine Ketone 1+ (Negative); Urine Leukocyte 3+ (Negative); Urine Nitrite Negative (Negative); Urine Occult Blood 3+ (Negative); Urine Urobilinogen Negative (Neg - 1+)
[2024-11-02 12:04] LABS: Urine Bacteria Moderate (Negative); Urine Squamous Cell >30 /LPF (Few); Urine White Cell 50-60 /HPF (0-5)
[2024-11-02 12:05] LABS: Urine Red Blood Cell 16-20 /HPF (0-2)
[2024-11-02 12:06] LABS: Urine Yeast Many (Negative)
--- NOTE | 2024-11-02 12:15 | PTCARENOTE ---
UA sent as ordered- torito care given prior but pt voided in a bedpan as she refused to have someone hold the specimen cup and wanted to be left completely alone while she urinated. After, PT and OT in to work with pt and currently HD here to start
HD. No other changes in assessment. VS as documented.
--- NOTE | 2024-11-02 12:38 | W.PN.NEPH.HD ---
Assessment
-
Patient seen on dialysis
Ultrafiltration as hemodynamically tolerated
Progress Note - Hemodialysis
-
Date of Service: November 02, 2024
Duration: 30 minutes and 3 hours
Potassium Bath: 2
Calcium Bath: 2.5
Opti-Dialyzer: 160
Ultrafiltration: Other (2-3kg as hemodynamically tolerated)
Blood Flow: 400
Dialysate Flow: 600
Heparin: none
EPO: 4000
[2024-11-02] MEDS: RETACRIT 4000 UNITS IV (12:46)
[2024-11-02 13:36] LABS: Glucose - Point of Care 88 mg/dl (70-99)
[2024-11-02] MEDS: NOVOLOG FLEXPEN 1 UNITS SC (13:44)
--- NOTE | 2024-11-02 13:45 | PTCARENOTE ---
Remains on HD. Lunch ordered but pt did not like the meal and only took a few bites. Tuna sandwich ordered currently per pt request. Glucose at 1334 was 88 - gave only 1 unit of Novolog to cover meal.
[2024-11-02] MEDS: HEPARIN 3700 UNITS INTRACATH (14:58)
--- NOTE | 2024-11-02 15:11 | CM ---
CM called to [facility] and updated pending reference #[id number]. Per Britteny Peace Case should be confirmed by the end of business today. CM updated nursing and will call to [facility] with update. CM will continue to follow for discharge planning needs.
Plan; [facility] with bed availability and auth pending
--- NOTE | 2024-11-02 15:50 | PTCARENOTE ---
HD finishing up. Spoke with Vascular surgery-pt needs to keep the Stump protector on with standing/ambulating but does not need in when in bed. Emir wrap on stump is per pt request- does not need emir wrap on stump - R BKA Stump redressed = karen
intact-old bloody drainage on previous emir wrap. Stump protector removed as pt is currently in bed. R knee with 2cm skin tear with pink wound bed and next to skin tear small blistered area. - skin prep and foam dressing applied. New foam dressings
to L heel and bilat elbows- elbow wounds with scant amt of old drainage but mostly scabbed.
--- NOTE | 2024-11-02 15:59 | W.PN.UPDATE ---
Update Note
Progress Note Update
Seen and examined by me independently in collaboration with the medical logistics specialist.
Lab data and imaging data reviewed.
Addendum as below :
Patient with ongoing cough which is productive of yellow to green phlegm. Denies any sore throat. No shortness of breath. Intermittently requiring oxygen. Chest x-ray without any signs of pneumonia. Chest auscultation does relieve rhonchorous
breathing. Clinical suspect bronchitis. Start on doxycycline. Follow for symptom improvement and improvement in white count.
Suspect leukocytosis may be pulmonary infection but will follow response to doxycycline.
No GI or symptoms. Tolerating diet. Afebrile.
Await PM&R eval and acute rehab placement
--- NOTE | 2024-11-02 16:15 | PTCARENOTE ---
HD completed. Pt turned and repositioned. Tearful and crying- moaning after HD- Admitted she had some buttock and R stump pain- 8/10 Medicated with Roxicodone 2.5 mg PO but also tearful about how she is going to do and worryment about the
amputation. Support given. Continues with moist cough - sometimes productive for yellowish secretions. Feels more comfortable having 1L nc O2 on with sats of 97-99%. BS remain coarse with crackles. VS as documented. Call ambriz in reach.
[2024-11-02 17:55] LABS: Glucose - Point of Care 175 mg/dl (70-99)
--- NOTE | 2024-11-02 18:17 | PTCARENOTE ---
Dr. Qureshi -physiatry in to see pt. Will leave the stump protector on at all times and will keep R stump wrapped with gerri wrap. Report called to [facility] [place]. Will transfer pt via bed. When asked an hr ago pt did not want dinner but now wants dinner-
will give Insulin with dinner when it arrives. No other changes.
[2024-11-02] MEDS: LIPITOR 80 MG PO (18:24)
[2024-11-02 21:42] LABS: Glucose - Point of Care 179 mg/dl (70-99)
[2024-11-02] MEDS: LANTUS 0.03 UNITS SC (21:59)
[2024-11-03 06:00] VITALS: BMI 23.6
[2024-11-03 07:30] VITALS: BP 131/56
[2024-11-03 07:47] LABS: Glucose - Point of Care 116 mg/dl (70-99)
--- NOTE | 2024-11-03 08:27 | CM ---
Per [facility] liaison please include the following documents in the fax; H&P of 10/18/24, nephrology consult 10/18, vascular note of surgery 10/28/24, PM&R consult 11/01/24, discharge instructions and note of 11/02/28. Please fax to [phone] as soon as
possible. Awaiting confirmation of bed at [facility] and auth.
[2024-11-03] MEDS: NOVOLOG FLEXPEN-LOW RESISTANCE SC ×3 (08:39→17:55)
[2024-11-03 08:40] LABS: % Basophils 0.9 % (0-2); % Eosinophils 1.4 % (0-6); % Immature Granulocytes 0.7 % (0-0.5); % Lymphocytes 11.3 % (20.5-51.1); % Monocytes 8.9 % (1.7-9.3); % Neutrophils 76.8 % (42.2-75.2); Absolute Basophils 0.2 10^3/uL (0-0.2); Absolute Eosinophils 0.2 10^3/uL (0-0.7); Absolute Immature Granulocytes 0.1 10^3/uL (0-0.05); Absolute Lymphocytes 1.9 10^3/uL (1.2-3.4); Absolute Monocytes 1.5 10^3/uL (0.1-0.6); Hematocrit 30.8 % (37.0-47.0); Hemoglobin 9.4 g/dL (12.0-16.0); Mean Corp Hgb Conc. 30.5 g/dL (33.0-37.0); Mean Corpuscular Volume 85.1 fL (81.0-99.0); Mean Platelet Volume 9.6 fL (7.4-10.4); Nucleated Red Blood Cells % 0 %; Platelet Count 351 10^3/uL (130-400); Red Blood Cell Count 3.62 10^6/uL (4.20-5.40); Red Cell Dist. Width 19.1 % (11.5-14.5); White Blood Cell Count 16.9 10^3/uL (4.8-10.8)
[2024-11-03] MEDS: NOVOLOG FLEXPEN SC (08:41)
[2024-11-03] MEDS: VISBIOME 1 CAP PO (08:58)
[2024-11-03] MEDS: COREG PO ×2 (08:58→20:58)
[2024-11-03] MEDS: PLAVIX 75 MG PO (08:58)
[2024-11-03] MEDS: VIBRAMYCIN 100 MG PO ×2 (08:58→20:59)
[2024-11-03] MEDS: HEPARIN SC ×2 (08:58→20:58)
[2024-11-03] MEDS: LOW STRENGTH ASPIRIN 81 MG PO (08:58)
[2024-11-03] MEDS: BUMEX PO (09:04)
[2024-11-03] MEDS: HYDROPHOR 1 APPLIC TOPICAL (09:05)
[2024-11-03 09:30] LABS: Blood Urea Nitrogen 23 mg/dl (7-17); Calcium 8.8 mg/dl (8.4-10.2); Carbon Dioxide 30 mmol/L (22-30); Chloride 100 mmol/L (98-107); Estimated Creatinine Clearance 21 ml/min; Glucose 118 mg/dl (70-99); Potassium 3.8 mmol/L (3.5-5.1); Sodium 139 mmol/L (135-145); eGFR 20.97
--- NOTE | 2024-11-03 09:53 | CM ---
Reviewed the chart notes and [facility] for [facility] 11/02 to 11/08; NRD 11/09/24. fax # [phone] auth #; [id number]. Per Joana, [facility] does not have a private bed today.
Patient requires private room due to needing to be on contact precautions. CM continues to be available to patient/family and is monitoring medical plan for needs at discharge.
Plan: Discharge to [facility] once bed is available.
[2024-11-03 10:28] VITALS: BP 141/67; PULSE 89; O2SAT 94
--- NOTE | 2024-11-03 10:42 | W.PN.HOSP.TC ---
Addendum entered and electronically signed by Donte Medina MD 11/03/24 15:27:
Seen and examined by me independently in collaboration with the medical records supervisor.
Lab data and imaging data reviewed.
Addendum as below :
No fever no chills. Improved cough. Less productive today. Denies shortness of breath.
No nausea vomiting or diarrhea.
She does make urine but denies any dysuria frequency but she thinks the order is strong. Urinalysis shows cloudy urine and pyuria. Rule out possibility of UTI. Covered with ceftriaxone with rising white count.
Wound care note about stump today noted-seems clean based on the note. Will check with next dressing change.
Continue with hemodialysis per Ren[facility].
Original Note:
Today's Communication/Plan
-
Ceftriaxone, doxy, pending placement to [facility]
Assessment / Plan
Assessment / Plan
49 year old female presenting with extreme fatigue s/p Dialysis
#Pyuria/Bacteriuria
#Leukocytosis
- WBCs have been increasing despite doxy for bronchitis, UA showing asymptomatic pyuria
- elbow, sacral, breast wounds clean dry intact/healing.
- UA + for LE, wbcs, bacteria, rbcs, yeast. Rflex culture showing possible contamination.
- Repeat UCx
- empiric Ceftriaxone, trend CBC
#Persistent Productive Cough
- persistent cough since 10/22, productive of sputum -- continued despite Mucinex & improvement in fluid status w/ Dialysis
- concern for aspiration -- VSE shows silent aspiration of thin liquid -- recommending ENT consult for vocal fold integrity given dysphonia
- repeat CXR 11/02/2024 no acute cardiopulmonary process
- Pt refusing mucinex and antihistamines for post nasal drip. Agreeable to chest PT.
- productive sputum is yellow/thick, suspicious for bronchitis w/ physical exam findings and new rising leukocytosis
- c/w doxycycline
#R BKA
#Nonhealing R Dorsal Foot Wound
- vascular following; c/w gerri wrap, pain management
- stable for downgrade to med/surg
(Would like to go to [facility] after surgery) -- physiatry consult
- post-op pain control with Tylenol and Oxy 2.5mg q4prn
#Acute Exacerbation of HFpEF
- Last Echo 12/2023 showing EF 65-70%, multivalvular disease, elevated PASP 60-65mmHg and Stage II diastolic dysfunction
- repeat Echo showing 75%EF, flattening of septum consistent w/ elevated RV volume, moderate , Mod. AR, Mod. TR. PASP decreased to 30-35mmHg. RV function is worse on today's echo when compared to prior 12/2023.
- clinical signs of acute on chronic volume overload
- was on 2L NC, intermittently requiring, more so at night
- c/w Coreg, Bumex, dialysis w/ ultrafiltration per Nephro
#ESRD (on dialysis MWF)
#Hyperkalemia
- R sided tunnelled dialysis cath. last received 10/18/2024
- Is on Bumex POA, patient states she makes urine
- c/w dialysis MWF per nephro w/ extra fluid removal
#Nonischemic Myocardial Injury
#Elevated troponins (resolved)
- chest pain and pressure, troponinemia, ECG showing sinus rhythm with PACs
- trops peaked
- Echo this admission with worsening RV function compared to December 2023
- Pt refusing heart cath -- Nuclear stress test -- no perfusion defect seen
#New stage 1 sacral wound - clean, dressing dry and intact
CHRONIC STABLE
#Multiple acute on chronic non-healing ulcers of various stages
#R heel with blistering and suspected stage 3 Pressure Injury
- non-toxic at this time
- wound care following, c/w dressings and ointment
#Pica Disorder
#H/o Depression
- patient endorses a compulsion to eat matches. She states she has been doing so since she was young, and that during times of stress she may consume as many as 100 matches per day.
- Matches contain potassium chlorate, sulfur, glue, red phosphorus, ammonium phosphate and paraffin, all of which are at the very least nephrotoxic
- Psych consulted; nephro aware.
- Psych rec. antidepressants but patient not receptive to the idea at this time
#Anemia, likely secondary to chronic disease and ESRD
- hgb at baseline, no signs of active bleeding
- given one dose EPO
- transfuse to keep hgb >7
#IDDM Type I (correction, further chart review reveals Type I, prior documentation by me says Type II; it is Type I).
- h/o of poorly controlled Type I DM, prior A1Cs seem to be around 9-11% -- repeat A1C% this admission 9.0%
- c/w 3U long acting QHS and 2U AC, POC glucose checks, c/w statin
#H/o R metatarsal amputation
#H/o osteomyelitis
#h/o CVA w/o residual deficit - c/w aspirin/plavix
#h/o Paroxysmal SVT
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
#chronic hearing loss, secondary to diabetic neuropathy
Regular Diet
DVT Ppx: Heparin SC
Code Status: Full Code
Anticipated Discharge: 24 - 48 hours
Subjective/Interval History
-
Date of Service: November 03, 2024
Cough is slightly improved today. No acute overnight events.
Objective Data
-
Labs:
Laboratory Results
11/03/24
07:47
WBC 16.9 H
Hgb 9.4 L
Hct 30.8 L
Plt Count 351
Sodium 139
Potassium 3.8
Chloride 100
Carbon Dioxide 30
BUN 23 H
Creatinine 2.7 H
Glucose 118 H
Calcium 8.8
Vital Signs:
Vital Signs
Temp Pulse Resp BP Pulse Ox
99.3 F 92 16 131/56 96
11/03/24 07:30 11/03/24 07:30 11/03/24 07:30 11/03/24 07:30 11/03/24 07:30
I&O
11/02/24 11/03/24 11/04/24
06:59 06:59 06:59
Intake Total 240 / 240 500 / 500
Output Total 100 / 100
Balance 240 / 240 400 / 400
Review of Systems
-
History Source: Patient
Constitutional: Denies Fever, Night Sweats or Chills
EENT: Reports No Symptoms Reported
Respiratory: Reports Cough; Denies Hemoptysis, Trouble Breathing, Wheezing or Pleurisy
Cardiac: Reports No Symptoms
Abdomen/GI: Reports No Symptoms
Genitourinary: Reports No Symptoms
Musculoskeletal: Reports No Symptoms
Skin: Reports No Symptoms
Physical Exam
-
General: No Apparent Distress, Comfortable and Appears Chronically Ill
HEENT: Normocephalic, Atraumatic, Moist Mucous Membranes, Anicteric, [place] Conjunctivae, Nose Appears Normal, Ears Appear Normal and Oxygen
Respiratory: Rhonchi and Non Labored Respirations; Negative Wheezes or Rales
Cardiac: Regular Rhythm
Breast: Deferred by me
GI: Soft, Nontender, Nondistended and Normal Bowel Sounds
Musculoskeletal: No Clubbing, No Cyanosis and No Edema
Skin: Warm, Dry and IV Access / Catheter Site
Neuro: Awake, Alert and Oriented
[2024-11-03 10:58] LABS: Glucose - Point of Care 101 mg/dl (70-99)
[2024-11-03] MEDS: STERILE WATER FOR INJECTION 10 ML IV (11:03)
[2024-11-03] MEDS: ROCEPHIN 1000 MG IV (11:03)
[2024-11-03 11:06] VITALS: BP 141/63; PULSE 89; O2SAT 94
[2024-11-03] MEDS: NOVOLOG FLEXPEN 2 UNITS SC ×2 (11:09→17:56)
[2024-11-03] MEDS: ROXICODONE 2.5 MG PO ×2 (12:33→17:55)
[2024-11-03] MEDS: LIDOCAINE 4% PATCH 1 PATCH TOPICAL (12:53)
[2024-11-03 15:41] VITALS: BP 136/60
[2024-11-03 17:52] LABS: Glucose - Point of Care 106 mg/dl (70-99)
[2024-11-03] MEDS: LIPITOR 80 MG PO (17:55)
[2024-11-03] MEDS: TYLENOL 650 MG PO (21:00)
[2024-11-03 21:50] LABS: Glucose - Point of Care 142 mg/dl (70-99)
[2024-11-03] MEDS: LANTUS 0.03 UNITS SC (21:52)
[2024-11-03 23:13] VITALS: BP 115/48
[2024-11-04] MEDS: ROXICODONE 2.5 MG PO ×3 (00:47→17:42)
[2024-11-04 03:11] LABS: Glucose - Point of Care 124 mg/dl (70-99)
[2024-11-04] MEDS: TYLENOL 650 MG PO ×2 (03:18→21:00)
[2024-11-04 06:00] VITALS: BMI 23.6
[2024-11-04 07:18] LABS: Glucose - Point of Care 121 mg/dl (70-99)
[2024-11-04 07:26] LABS: % Basophils 0.9 % (0-2); % Eosinophils 1.1 % (0-6); % Immature Granulocytes 0.7 % (0-0.5); % Lymphocytes 11.2 % (20.5-51.1); % Monocytes 9.2 % (1.7-9.3); % Neutrophils 76.9 % (42.2-75.2); Absolute Basophils 0.2 10^3/uL (0-0.2); Absolute Eosinophils 0.2 10^3/uL (0-0.7); Absolute Immature Granulocytes 0.1 10^3/uL (0-0.05); Absolute Lymphocytes 2.1 10^3/uL (1.2-3.4); Absolute Monocytes 1.7 10^3/uL (0.1-0.6); Absolute Neutrophils 14.2 10^3/uL (1.4-6.5); Hematocrit 28.4 % (37.0-47.0); Hemoglobin 8.8 g/dL (12.0-16.0); Mean Platelet Volume 9.8 fL (7.4-10.4); Nucleated Red Blood Cells % 0 %; Platelet Count 341 10^3/uL (130-400); Red Blood Cell Count 3.38 10^6/uL (4.20-5.40); Red Cell Dist. Width 19.3 % (11.5-14.5); White Blood Cell Count 18.5 10^3/uL (4.8-10.8)
[2024-11-04 07:41] VITALS: BP 127/55
[2024-11-04] MEDS: NOVOLOG FLEXPEN SC ×2 (08:09→11:48)
[2024-11-04] MEDS: NOVOLOG FLEXPEN-LOW RESISTANCE SC ×2 (08:09→11:48)
[2024-11-04] MEDS: COREG PO ×2 (08:10→20:56)
[2024-11-04] MEDS: HEPARIN SC ×2 (08:10→20:55)
[2024-11-04] MEDS: RETACRIT 4000 UNITS IV (09:05)
[2024-11-04 09:30] LABS: Blood Urea Nitrogen 35 mg/dl (7-17); Calcium 8.9 mg/dl (8.4-10.2); Carbon Dioxide 23 mmol/L (22-30); Chloride 101 mmol/L (98-107); Estimated Creatinine Clearance 16 ml/min; Glucose 120 mg/dl (70-99); Sodium 138 mmol/L (135-145); eGFR 15.36
--- NOTE | 2024-11-04 10:51 | W.PN.NEPH.HD ---
Assessment
-
Seen on dialysis treatment being tolerated
Progress Note - Hemodialysis
-
Date of Service: November 04, 2024
Duration: 30 minutes and 3 hours
Potassium Bath: 2
Calcium Bath: 2.5
Opti-Dialyzer: 160
Ultrafiltration: Other (2-3kg as hemodynamically tolerated)
Blood Flow: 400
Dialysate Flow: 600
Heparin: none
EPO: 4000
[2024-11-04] MEDS: HEPARIN 3700 UNITS INTRACATH (11:08)
[2024-11-04] MEDS: LOW STRENGTH ASPIRIN 81 MG PO (11:43)
[2024-11-04] MEDS: PLAVIX 75 MG PO (11:43)
[2024-11-04] MEDS: VIBRAMYCIN 100 MG PO ×2 (11:43→20:59)
[2024-11-04] MEDS: STERILE WATER FOR INJECTION 10 ML IV (11:44)
[2024-11-04] MEDS: ROCEPHIN 1000 MG IV (11:44)
[2024-11-04] MEDS: VISBIOME 1 CAP PO (11:44)
[2024-11-04] MEDS: HYDROPHOR 1 APPLIC TOPICAL (11:44)
[2024-11-04 11:48] LABS: Glucose - Point of Care 86 mg/dl (70-99)
--- NOTE | 2024-11-04 13:30 | WOUNDNOTE ---
L ELBOW (dry callus appearing)
--- NOTE | 2024-11-04 13:30 | WOUNDNOTE ---
R ELBOW (dry callus appearing)
--- NOTE | 2024-11-04 13:30 | WOUNDNOTE ---
R ELBOW (dry callus appearing)
--- NOTE | 2024-11-04 14:03 | W.PN.HOSP.TC ---
Today's Communication/Plan
-
c/w doxy for presumed bronchitis
c/w pain control
pending bed at [facility]
Assessment / Plan
Assessment / Plan
49 year old female presenting with extreme fatigue s/p Dialysis
#Pyuria/Bacteriuria
#Leukocytosis
- WBCs have been increasing despite doxy for bronchitis, UA showing asymptomatic pyuria
- elbow, sacral, breast wounds clean dry intact/healing.
- UA + for LE, wbcs, bacteria, rbcs, yeast. Rflex culture showing possible contamination.
- empiric Ceftriaxone day 2 of 3, trend CBC
#Persistent Productive Cough
#Bronchitis
- persistent cough since 10/22, productive of sputum -- continued despite Mucinex & improvement in fluid status w/ Dialysis
- concern for aspiration -- VSE shows silent aspiration of thin liquid -- recommending ENT consult for vocal fold integrity given dysphonia
- repeat CXR 11/02/2024 no acute cardiopulmonary process
- Pt refusing mucinex and antihistamines for post nasal drip. Agreeable to chest PT.
- productive sputum is yellow/thick, suspicious for bronchitis w/ physical exam findings and new rising leukocytosis
- repeat 2 view CXR showing no significant pleural effusion and mild pulm. edema
- c/w doxycycline day 3
#R BKA
#Nonhealing R Dorsal Foot Wound
- vascular following; c/w gerri wrap, pain management
- stable for downgrade to med/surg
(Would like to go to [facility] after surgery) -- physiatry consult
- post-op pain control with Tylenol and Oxy 2.5mg q4prn
#Acute Exacerbation of HFpEF
- Last Echo 12/2023 showing EF 65-70%, multivalvular disease, elevated PASP 60-65mmHg and Stage II diastolic dysfunction
- repeat Echo showing 75%EF, flattening of septum consistent w/ elevated RV volume, moderate , Mod. AR, Mod. TR. PASP decreased to 30-35mmHg. RV function is worse on today's echo when compared to prior 12/2023.
- clinical signs of acute on chronic volume overload
- was on 2L NC, intermittently requiring, more so at night
- c/w Coreg, Bumex, dialysis w/ ultrafiltration per Nephro
#ESRD (on dialysis MWF)
#Hyperkalemia
- R sided tunnelled dialysis cath. last received 10/18/2024
- Is on Bumex POA, patient states she makes urine
- c/w dialysis MWF per nephro w/ extra fluid removal
#Nonischemic Myocardial Injury
#Elevated troponins (resolved)
- chest pain and pressure, troponinemia, ECG showing sinus rhythm with PACs
- trops peaked
- Echo this admission with worsening RV function compared to December 2023
- Pt refusing heart cath -- Nuclear stress test -- no perfusion defect seen
#New stage 1 sacral wound - clean, dressing dry and intact
CHRONIC STABLE
#Multiple acute on chronic non-healing ulcers of various stages
#R heel with blistering and suspected stage 3 Pressure Injury
- non-toxic at this time
- wound care following, c/w dressings and ointment
#Pica Disorder
#H/o Depression
- patient endorses a compulsion to eat matches. She states she has been doing so since she was young, and that during times of stress she may consume as many as 100 matches per day.
- Matches contain potassium chlorate, sulfur, glue, red phosphorus, ammonium phosphate and paraffin, all of which are at the very least nephrotoxic
- Psych consulted; nephro aware.
- Psych rec. antidepressants but patient not receptive to the idea at this time
#Anemia, likely secondary to chronic disease and ESRD
- hgb at baseline, no signs of active bleeding
- given one dose EPO
- transfuse to keep hgb >7
#IDDM Type I (correction, further chart review reveals Type I, prior documentation by me says Type II; it is Type I).
- h/o of poorly controlled Type I DM, prior A1Cs seem to be around 9-11% -- repeat A1C% this admission 9.0%
- c/w 3U long acting QHS and 2U AC, POC glucose checks, c/w statin
#H/o R metatarsal amputation
#H/o osteomyelitis
#h/o CVA w/o residual deficit - c/w aspirin/plavix
#h/o Paroxysmal SVT
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
#chronic hearing loss, secondary to diabetic neuropathy
Regular Diet
DVT Ppx: Heparin SC
Code Status: Full Code
Anticipated Discharge: 24 - 48 hours
Subjective/Interval History
-
Date of Service: November 04, 2024
Feeling about the same today. Cough seems to be improving on antibiotics. No new fevers or chills.
Objective Data
-
Labs:
Laboratory Results
11/04/24
06:23
WBC 18.5 H
Hgb 8.8 L
Hct 28.4 L
Plt Count 341
Sodium 138
Potassium 4.0
Chloride 101
Carbon Dioxide 23
BUN 35 H
Creatinine 3.5 H
Glucose 120 H
Calcium 8.9
Vital Signs:
Vital Signs
Temp Pulse Resp BP Pulse Ox
98.5 F 86 16 127/55 98
11/04/24 07:41 11/04/24 07:41 11/04/24 07:41 11/04/24 07:41 11/04/24 07:41
I&O
0511/04/24 11/05/24
06:59 06:59 06:59
Intake Total 500 / 500 1440 / 1440
Output Total 100 / 100
Balance 400 / 400 1440 / 1440
Review of Systems
-
History Source: Patient
Constitutional: Reports No Symptoms
EENT: Reports No Symptoms Reported
Respiratory: Reports No Symptoms
Cardiac: Reports No Symptoms
Abdomen/GI: Reports No Symptoms
Genitourinary: Reports No Symptoms
Musculoskeletal: Reports No Symptoms
Physical Exam
-
General: Well Developed, Well Nourished, No Apparent Distress and Appears Chronically Ill
HEENT: Normocephalic, Atraumatic, Moist Mucous Membranes, Anicteric and [place] Conjunctivae
Respiratory: Rhonchi; Negative Wheezes or Rales
Cardiac: Regular Rhythm and S1/S2
--- NOTE | 2024-11-04 14:08 | WOUNDNOTE ---
[facility] RN note: Patient seen around 1315. Bilateral elbow with what looks like dry callus along with her psoriasis. No drainage. No fluctuance. Foam dressing changed. Patient has linear superficial pink open area on her coccyx creases suspect from
moisture and pressure (stage 2). Skin appeared very fragile in last week's picture suspect skin opening was unavoidable d/t high friction location and very bony prominence. Sacral shaped silicone border maintained. Skin on L heel blanchable red and
intact. She is on a [employer] air bed. L heel off bed with pillow. She has an air chair cushion. Patient turned to L semi side lying position. Patient instructed pressure injury prevention measures including L heel elevation and off loading her
sacrum. She drinks ensure supplement. She is very thin. Patient has a R knee broken blister suspect from her R BKA protector. Foam dressing changed. Updated Anayeli Mustafa vascular PIPELINE TECHNICIAN and confirmed local care of R BKA incision and clarified with
vascular, patient only needs to wear the stump protector while out of bed. Protector was removed since patient is in bed. Updated Dr. Medina and YVETTE Covarrubias who came in to see patient and YVETTE Covarrubias rewrapped R BKA Emir wrap while Dr. Medina was visiting. Care
plan and discharge instructions updated. Will follow as needed.
--- NOTE | 2024-11-04 14:14 | CM ---
Reviewed the chart notes and spoke with Joana Velasco Liaison. Bed not available at this time. Need to reach out on Thursday morning to Joanne ([phone]) who will be covering [facility] on Thursday. CM continues to be available to patient/family and is
monitoring medical plan for needs at discharge.
Plan: Discharge to [facility] once bed available. Current auth good through 11/08/24.
[2024-11-04 15:18] VITALS: BP 127/56
[2024-11-04 15:49] VITALS: BP 138/56; PULSE 95; O2SAT 100
--- NOTE | 2024-11-04 15:54 | W.PN.UPDATE ---
Update Note
Progress Note Update
Seen and examined by me independently in collaboration with the medical assistant prn.
Lab data and imaging data reviewed.
Addendum as below :
Rising white count noted. Afebrile. Nontoxic.
Nurse was concerned about her cough and silent aspiration. She had a video swallow exam which showed silent aspiration and was recommended thick liquids but she refused. Is currently on thin liquids.
Audible cough heard. She is on oxygen via nasal cannula without respiratory distress. Chest sounds rhonchorous bilaterally.
UA noted and urine culture showed mixed mercy versus contamination. She did not do much of dysuria yesterday and no frequency of urine. She says some discomfort with urine. With this available data doubt it is a UTI. If she had continued
discomfort in the urine we will have to do a straight cath specimen.
My concern is probably progression of her respiratory issues including either aspiration pneumonitis or pneumonia to elevate the white count. Get a chest x-ray today. Continue with ceftriaxone and doxycycline for now.
Hold discharge to rehab today.
Discussed with wound care-pictures reviewed-chronic wounds does not look infected. Reviewed the right amputation site stump which is clean without signs of infection.
Discussed with RN
Discussed with case management
Total time spent on today's encounter was 52 minutes which included time spent in counseling the patient/family regarding diagnosis and treatment plan as listed above, goals of care, and symptom management. Case was discussed with nursing staff,
specialists, and care coordinators/case management. All labs and imaging personally reviewed by me. Remainder the time spent in detailed review of previous records, lab data, imaging, and other medical provider documentation.
[2024-11-04 15:58] VITALS: BP 138/56; PULSE 94; O2SAT 100
[2024-11-04 16:20] LABS: Glucose - Point of Care 199 mg/dl (70-99)
[2024-11-04] MEDS: NOVOLOG FLEXPEN-LOW RESISTANCE 1 UNITS SC (17:39)
[2024-11-04] MEDS: NOVOLOG FLEXPEN 2 UNITS SC (17:39)
[2024-11-04] MEDS: LIPITOR 80 MG PO (17:39)
[2024-11-04 19:56] VITALS: BP 138/55
--- NOTE | 2024-11-04 20:19 | W.PN.UPDATE ---
Update Note
Progress Note Update
New onset of fever(temp 100.5), hr 103 , RR 17, bp 138/55, SPo2 98%
Patient had chest x-ray today for the concern of elevated WBC and cough.
Plan
New orders of covid, flu, lactic acid and blood cultures.
Patient still complaining of discomfort with urination. Will repeat UA/ straight cath to avoid contaminated sample.
[2024-11-04 21:15] LABS: Lactic Acid 1.4 mmol/L (0.7-2.0)
[2024-11-04 21:16] LABS: COVID-19 Antigen Negative (Negative)
--- NOTE | 2024-11-04 21:37 | PTCARENOTE ---
This RN assisted RN Nirali diaz cath patient after receiving patient approval to proceed. Patient tolerated procedure well.
[2024-11-04 21:53] LABS: Urine Albumin 3+ (Neg - Trace); Urine Bilirubin 1+ (Negative); Urine Character Clear (Clear); Urine Color Yellow; Urine Glucose Negative (Negative); Urine Ketone Negative (Negative); Urine Leukocyte 2+ (Negative); Urine Nitrite Negative (Negative); Urine Occult Blood 1+ (Negative); Urine Urobilinogen Negative (Neg - 1+)
[2024-11-04 21:59] LABS: Urine Squamous Cell >30 /LPF (Few)
[2024-11-04 22:01] LABS: Urine Bacteria Moderate (Negative); Urine Yeast Many (Negative)
[2024-11-04] MEDS: LANTUS 0.03 UNITS SC (22:01)
[2024-11-04 22:12] LABS: Glucose - Point of Care 215 mg/dl (70-99)
[2024-11-04 23:24] VITALS: BP 112/54
[2024-11-05] MEDS: ROXICODONE 2.5 MG PO ×2 (03:26→17:08)
[2024-11-05] MEDS: MUCINEX 600 MG PO (03:31)
[2024-11-05 06:00] VITALS: BMI 23.3
[2024-11-05 07:30] VITALS: BP 128/56
[2024-11-05 07:46] LABS: Glucose - Point of Care 197 mg/dl (70-99)
[2024-11-05 08:56] LABS: % Basophils 1.1 % (0-2); % Eosinophils 1.5 % (0-6); % Immature Granulocytes 0.8 % (0-0.5); % Lymphocytes 12.2 % (20.5-51.1); % Monocytes 8.9 % (1.7-9.3); % Neutrophils 75.5 % (42.2-75.2); Absolute Basophils 0.2 10^3/uL (0-0.2); Absolute Eosinophils 0.2 10^3/uL (0-0.7); Absolute Immature Granulocytes 0.1 10^3/uL (0-0.05); Absolute Lymphocytes 1.9 10^3/uL (1.2-3.4); Absolute Monocytes 1.4 10^3/uL (0.1-0.6); Absolute Neutrophils 11.9 10^3/uL (1.4-6.5); Hematocrit 29.9 % (37.0-47.0); Hemoglobin 9.1 g/dL (12.0-16.0); Mean Corp Hgb Conc. 30.4 g/dL (33.0-37.0); Mean Corpuscular Hgb 25.7 pg (27.0-31.0); Mean Corpuscular Volume 84.5 fL (81.0-99.0); Mean Platelet Volume 9.1 fL (7.4-10.4); Nucleated Red Blood Cells % 0 %; Platelet Count 323 10^3/uL (130-400); Red Blood Cell Count 3.54 10^6/uL (4.20-5.40); Red Cell Dist. Width 19.1 % (11.5-14.5); White Blood Cell Count 15.7 10^3/uL (4.8-10.8)
[2024-11-05] MEDS: VISBIOME 1 CAP PO (09:30)
[2024-11-05] MEDS: LOW STRENGTH ASPIRIN 81 MG PO (09:30)
[2024-11-05] MEDS: VIBRAMYCIN 100 MG PO ×2 (09:30→20:53)
[2024-11-05] MEDS: COREG PO ×2 (09:30→20:52)
[2024-11-05] MEDS: PLAVIX 75 MG PO (09:30)
[2024-11-05] MEDS: HEPARIN 5000 UNITS SC (09:30)
[2024-11-05] MEDS: STERILE WATER FOR INJECTION 10 ML IV (09:31)
[2024-11-05] MEDS: ROCEPHIN 1000 MG IV (09:31)
[2024-11-05] MEDS: BUMEX PO ×2 (09:32→11:10)
[2024-11-05] MEDS: NOVOLOG FLEXPEN-LOW RESISTANCE 1 UNITS SC ×2 (09:33→17:03)
[2024-11-05] MEDS: NOVOLOG FLEXPEN 2 UNITS SC ×3 (09:34→17:03)
--- NOTE | 2024-11-05 11:10 | PTCARENOTE ---
pt refused bumex this morning for this RN. charted properly in [facility].
[2024-11-05 11:39] LABS: Glucose - Point of Care 148 mg/dl (70-99)
[2024-11-05] MEDS: NOVOLOG FLEXPEN-LOW RESISTANCE SC (11:39)
--- NOTE | 2024-11-05 12:06 | W.PN.NEPH.PH ---
Today's Communication / Plan
-
No acute need for dialysis today next treatment Thursday
Assessment/Plan
-
48-year-old female past medical history of right diabetic foot infection status post fifth toe amputation, peripheral arterial disease, ESRD on hemodialysis Thursday [facility] [address] [place] [address]
Impression:
ESRD
Thursday
Hyperkalemia
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
recent diabetic foot infection of right lateral foot possible osteomyelitis status post angiogram with stent placement on 07/08/2024
History of right diabetic foot infection status post fifth toe amputation on 12/06 and revision fourth toe amputation on 12/13
Peripheral arterial disease status post diagnostic arteriogram, intravascular lithotripsy of the posterior tibial artery and proximal SFA, balloon angioplasty and nitroglycerin injection of posterior tibial artery on 12/21/23
Chronic transaminitis
Type 1 diabetes
ESRD on hemodialysis Thursday and Thursday (stopped two months prior)
Chronic HFpEF
chronic anemia
Moderate aortic stenosis/aortic regurgitation
Mild to moderate mitral stenosis
Paroxysmal SVT
Iron deficiency anemia
History of CVA
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
Plan:
Dialysis Thursday
See orders
-
-
Date of Service: November 05, 2024
CC / HPI / ROS
-
Chief Complaint:
Presents with
Confusion altered mental status difficulty hearing
History of Present Illness:
ESRD Thursday volume overloaded chronic foot infection
tolerated HD yesterday
BP stable
Review of Systems:
no CP
No fever
Labs
-
Labs:
WBC 15.7 10^3/uL (4.8-10.8) H 11/05/24 08:44
RBC 3.54 10^6/uL (4.20-5.40) L 11/05/24 08:44
Hgb 9.1 g/dL (12.0-16.0) L 11/05/24 08:44
Hct 29.9 % (37.0-47.0) L 11/05/24 08:44
Plt Count 323 10^3/uL (130-400) 11/05/24 08:44
Sodium 138 mmol/L (135-145) 11/04/24 06:23
Potassium 4.0 mmol/L (3.5-5.1) 11/04/24 06:23
Chloride 101 mmol/L (98-107) 11/04/24 06:23
Carbon Dioxide 23 mmol/L (22-30) 11/04/24 06:23
BUN 35 mg/dl (7-17) H 11/04/24 06:23
Creatinine 3.5 mg/dL (0.6-1.0) H 11/04/24 06:23
eGFR 15.36 11/04/24 06:23
Glucose 120 mg/dl (70-99) H 11/04/24 06:23
Calcium 8.9 mg/dl (8.4-10.2) 11/04/24 06:23
Phosphorus 3.2 mg/dl (2.5-4.5) 10/28/24 20:53
Albumin 3.2 g/dl (3.5-5.0) L 11/02/24 04:11
Physical Exam
-
Vital Signs:
Vital Signs
Temp Pulse Resp BP Pulse Ox
98.3 F 92 16 128/56 97
11/05/24 07:30 11/05/24 07:30 11/05/24 07:30 11/05/24 07:30 11/05/24 07:30
Cardiovascular:: Regular rate and rhythm
Respiratory:: Bilateral: CTA
Lung Excursion:: Normal
Abdomen:: Nontender and Soft
Bowel Sounds:: Normal
Extremity Edema:: None: Bilateral:
--- NOTE | 2024-11-05 14:02 | W.PN.HOSP.TC ---
Today's Communication/Plan
-
c/w abx, ID consult, pending placement
Assessment / Plan
Assessment / Plan
49 year old female presenting with extreme fatigue s/p Dialysis
#Sepsis
Secondary to UTI vs. Bronchitis vs. less likely skin/soft tissue
- WBCs have been increasing despite doxy for bronchitis, UA showing asymptomatic pyuria
- elbow, sacral, breast wounds clean dry intact/healing
- MRSA colonization
- Spiked fever/tachycardia/tachypnea overnight -- blood cx drawn
- repeat flu/covid negative
- repeat UA showing LE, mod bacteria, many yeast
- ID consult
#Pyuria/Bacteriuria
- UA + for LE, wbcs, bacteria, rbcs, yeast. Rflex culture showing possible contamination.
- repeat culture pending
- empiric Ceftriaxone day 3 of 3
#Persistent Productive Cough
#Bronchitis
- persistent cough since 10/22, productive of sputum -- continued despite Mucinex & improvement in fluid status w/ Dialysis
- concern for aspiration -- VSE shows silent aspiration of thin liquid -- recommending ENT consult for vocal fold integrity given dysphonia
- repeat CXR 11/02/2024 no acute cardiopulmonary process
- Pt refusing mucinex and antihistamines for post nasal drip. Agreeable to chest PT.
- productive sputum is yellow/thick, suspicious for bronchitis w/ physical exam findings and new rising leukocytosis
- repeat 2 view CXR showing no significant pleural effusion and mild pulm. edema
- c/w doxycycline day 4
#R BKA
#Nonhealing R Dorsal Foot Wound
- vascular following; c/w gerri wrap, pain management
- stable for downgrade to med/surg
(Would like to go to [facility] after surgery) -- physiatry consult
- post-op pain control with Tylenol and Oxy 2.5mg q4prn
#Acute Exacerbation of HFpEF
- Last Echo 12/2023 showing EF 65-70%, multivalvular disease, elevated PASP 60-65mmHg and Stage II diastolic dysfunction
- repeat Echo showing 75%EF, flattening of septum consistent w/ elevated RV volume, moderate , Mod. AR, Mod. TR. PASP decreased to 30-35mmHg. RV function is worse on today's echo when compared to prior 12/2023.
- clinical signs of acute on chronic volume overload
- was on 2L NC, intermittently requiring, more so at night
- c/w Coreg, Bumex, dialysis w/ ultrafiltration per Nephro
#ESRD (on dialysis MWF)
#Hyperkalemia
- R sided tunnelled dialysis cath. last received 10/18/2024
- Is on Bumex POA, patient states she makes urine
- c/w dialysis MWF per nephro w/ extra fluid removal
#Nonischemic Myocardial Injury
#Elevated troponins (resolved)
- chest pain and pressure, troponinemia, ECG showing sinus rhythm with PACs
- trops peaked
- Echo this admission with worsening RV function compared to December 2023
- Pt refusing heart cath -- Nuclear stress test -- no perfusion defect seen
#New stage 1 sacral wound - clean, dressing dry and intact
CHRONIC STABLE
#Multiple acute on chronic non-healing ulcers of various stages
#R heel with blistering and suspected stage 3 Pressure Injury
- non-toxic at this time
- wound care following, c/w dressings and ointment
#Pica Disorder
#H/o Depression
- patient endorses a compulsion to eat matches. She states she has been doing so since she was young, and that during times of stress she may consume as many as 100 matches per day.
- Matches contain potassium chlorate, sulfur, glue, red phosphorus, ammonium phosphate and paraffin, all of which are at the very least nephrotoxic
- Psych consulted; nephro aware.
- Psych rec. antidepressants but patient not receptive to the idea at this time
#Anemia, likely secondary to chronic disease and ESRD
- hgb at baseline, no signs of active bleeding
- given one dose EPO
- transfuse to keep hgb >7
#IDDM Type I (correction, further chart review reveals Type I, prior documentation by me says Type II; it is Type I).
- h/o of poorly controlled Type I DM, prior A1Cs seem to be around 9-11% -- repeat A1C% this admission 9.0%
- c/w 3U long acting QHS and 2U AC, POC glucose checks, c/w statin
#H/o R metatarsal amputation
#H/o osteomyelitis
#h/o CVA w/o residual deficit - c/w aspirin/plavix
#h/o Paroxysmal SVT
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
#chronic hearing loss, secondary to diabetic neuropathy
Regular Diet
DVT Ppx: Heparin SC
Code Status: Full Code
Anticipated Discharge: 24 - 48 hours
Subjective/Interval History
-
Date of Service: November 05, 2024
feels the same this morning. Had fever/tachycardia/tachypnea overnight. Bcx, flu, covid, lactate ordered. Straight cath ordered for repeat UA given prior contamination.
Objective Data
-
Labs:
Laboratory Results
11/05/24 11/05/24
07:36 08:44
WBC Cancelled 15.7 H
Hgb Cancelled 9.1 L
Hct Cancelled 29.9 L
Plt Count Cancelled 323
Vital Signs:
Vital Signs
Temp Pulse Resp BP Pulse Ox
98.3 F 92 16 128/56 97
11/05/24 07:30 11/05/24 07:30 11/05/24 07:30 11/05/24 07:30 11/05/24 07:30
I&O
11/04/24 11/05/24 11/06/24
06:59 06:59 06:59
Intake Total 1440 / 1440 520 / 520
Output Total 350 / 350
Balance 1440 / 1440 170 / 170
Review of Systems
-
History Source: Patient
Constitutional: Reports No Symptoms
EENT: Reports No Symptoms Reported
Respiratory: Reports Cough; Denies Hemoptysis or Trouble Breathing
Cardiac: Reports No Symptoms
Abdomen/GI: Reports No Symptoms
Genitourinary: Reports Dysuria; Denies Frequency, Flank Pain or Bleeding
Musculoskeletal: Reports No Symptoms
Skin: Reports No Symptoms
Physical Exam
-
General: Comfortable and Appears Chronically Ill
HEENT: Normocephalic, Atraumatic, Moist Mucous Membranes, Anicteric, [place] Conjunctivae and Oxygen
Respiratory: Rhonchi and Non Labored Respirations; Negative Clear to Auscultation, Wheezes or Rales
Cardiac: Regular Rhythm, S1/S2 and Murmur; Negative Rub
GI: Soft, Nontender, Nondistended and Normal Bowel Sounds
Musculoskeletal: No Clubbing, No Cyanosis, No Edema and Other (R BKA)
Skin: Warm, Dry and IV Access / Catheter Site
Neuro: AO x 3
--- NOTE | 2024-11-05 15:28 | CON.ID ---
Consultation
-
Date/Time Consultation Requested: 11/05/2024 1106
Date/Time Consultation Performed: 11/05/2024 1500
Requesting Provider: Dr. Christina
Performing Provider: Dr. Escobar
Reason for Consultation: Fever
Chief Complaint / Past History
History of Present Illness
Shea Kent is a 49-year-old female being evaluated regarding fever and suspected urinary tract infection. History is obtained from chart review, along with patient interview.
The patient is known to the Infectious Diseases service, having been seen in July 2024 for right foot osteomyelitis following right fifth met resection. That time, she was discharged on a prolonged course of amoxicillin and Keflex.
She presents back to [facility] on 10/18 secondary to reported change in mental status and lethargy at home. Her hospital course has been significant for ongoing care of a right foot nonhealing wound which ultimately resulted in her
undergoing a BKA on 10/28. Around the same time she developed a cough. Over the past several days she has had a mild leukocytosis, and last evening she developed a fever to 100.5 degrees.
At present, she reports dysuria and a strong odor to her urine. At the time of her reported fever she did not feel subjectively feverish, though. She denies any current nausea or vomiting. She denies any abdominal pain. She denies any
significant discomfort at her BKA site. She does note some vaginal irritation consistent with a yeast infection.
Past History
Additional Past Medical History:
ESRD-HD
IDDM (uncontrolled; HbA1c = 9.0)
PAD
Diastolic CHF
Anemia
Hx CVA
Paroxysmal SVT
Hx Guillain-Song� with chronic LLE weakness
Right eye blindness
Additional Past Surgical History:
Right foot partial 10/08 met amputations
Right BKA (10/28/2024)
T&A
Eye sx
Cardiac Sx as infant
Allergy History:
latex Allergy (Verified 07/04/24 11:33)
Hives
Medications Reviewed: Yes
Current Antibiotics:
Ceftriaxone (day #3)
Doxycycline (day #4)
Social History
Tobacco: Non-Smoker
Alcohol: None
Drug: None
Living: With Family
Family History
Family History: Not Pertinent
Review of Systems
Vital Signs
Temp Pulse Resp BP Pulse Ox
98.3 F 92 16 128/56 97
11/05/24 07:30 11/05/24 07:30 11/05/24 07:30 11/05/24 07:30 11/05/24 07:30
Physical Exam
Physical Exam
Constitutional: Comfortable, Chronically Ill, Non-toxic and Cachetic (mild)
Head: Normocephalic
Eyes: Pupils Equal, Pupils Round, No Conjunctival Hemorrhage and Sclera Anicteric
Oral: No Thrush and No Ulcers
Cardiovascular: S1/S2; Negative S3/S4
Pulmonary: Coarse and Non Labored; Negative Wheezes or Rales
Gastrointestinal: Soft, Non Tender, Non Distended and Normal Bowel Sounds
Extremities: Negative Edema, Cyanosis or Erythema
Skin: Warm and Dry
Wound: Other (Right BKA site dressed)
Neurological: Awake and Alert
Psychological: Calm
Lab / Diagnostic Study Results
11/05/24 08:44
11/04/24 06:23
Abs Immat Gran (auto) 0.1 10^3/uL (0-0.05) H 11/05/24 08:44
Absolute Neuts (auto) 11.9 10^3/uL (1.4-6.5) H 11/05/24 08:44
Absolute Lymphs (auto) 1.9 10^3/uL (1.2-3.4) 11/05/24 08:44
Absolute Monos (auto) 1.4 10^3/uL (0.1-0.6) H 11/05/24 08:44
Absolute Basos (auto) 0.2 10^3/uL (0-0.2) 11/05/24 08:44
Immature Gran % 0.8 % (0-0.5) H 11/05/24 08:44
Neutrophils % 75.5 % (42.2-75.2) H 11/05/24 08:44
Lymphocytes % 12.2 % (20.5-51.1) L 11/05/24 08:44
Monocytes % 8.9 % (1.7-9.3) 11/05/24 08:44
Eosinophils % 1.5 % (0-6) 11/05/24 08:44
Basophils % 1.1 % (0-2) 11/05/24 08:44
PT 15.3 Sec (11.4-14.6) H 10/29/24 04:36
INR 1.18 10/29/24 04:36
Lactic Acid 1.4 mmol/L (0.7-2.0) 11/04/24 20:52
Ur Squamous Epith Cells >30 /LPF (Few) 11/04/24 21:43
Microbiology Results
Micro:
11/04/24 21:48 Blood Culture - Pending
Blood/Venous
11/04/24 21:43 Urine Culture - Pending
Urine
11/04/24 20:52 Influenza Types A & B (JOSEPH) - Final
Nasal Swab Negative for Influenza A & B, NAAT
Negative results must be combined with clinical observations
and patient history.
Nucleic Acid Amplification test (NAAT)performed on the
[employer] platform.
11/04/24 20:52 Blood Culture - Pending
Blood/Venous
11/02/24 11:21 Urine Culture - Final
Urine
10/24/24 12:37 Influenza Types A & B (JOSEPH) - Final
Nasal Swab Negative for Influenza A & B, NAAT
Negative results must be combined with clinical observations
and patient history.
Nucleic Acid Amplification test (NAAT)performed on the
[employer] NOW platform.
10/18/24 13:57 Blood Culture - Final
Blood/Venous No Growth - Final Report
10/18/24 13:32 Blood Culture - Final
Blood/Venous No Growth - Final Report
10/18/24 20:03 MRSA Screen - Final
Nose Staph aureus MRSA
10/18/24 13:32 Influenza Types A & B (JOSEPH) - Final
Nasal Swab Negative for Influenza A & B, NAAT
Negative results must be combined with clinical observations
and patient history.
Nucleic Acid Amplification test (NAAT)performed on the
[employer] NOW platform.
Imaging:
11/04/2024 CXR (2 view): Mild cardiomegaly. No pleural effusion. No evidence of lobar airspace consolidation or pneumothorax. No overt infiltrate appreciated.
Assessment / Plan
Low-grade fever overnight
Leukocytosis
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
Suspected vulvovaginal candidiasis
ESRD-HD
IDDM (uncontrolled; HbA1c = 9.0)
PAD
Diastolic CHF
Anemia
Hx CVA
Paroxysmal SVT
Hx Guillain-Song� with chronic LLE weakness
Right eye blindness
Recommendations:
At present, difficult to ascertain whether there is a true urinary tract infection given that the urinalysis shows contamination with epithelial cells. Urine culture from 11/04 will need to be interpreted with caution.
Patient reports that she has some irritation in the vulvovaginal area consistent with candidiasis.
Continue with empiric ceftriaxone and doxycycline for the present.
Begin 3-day course of Diflucan.
Monitor white count and temperature curve
[2024-11-05 15:30] VITALS: BP 165/74
[2024-11-05] MEDS: HYDROPHOR TOPICAL (16:27)
[2024-11-05] MEDS: DIFLUCAN 100 MG PO (17:00)
[2024-11-05] MEDS: LIPITOR 80 MG PO (17:00)
[2024-11-05] MEDS: LIDOCAINE 4% PATCH 1 PATCH TOPICAL (17:00)
[2024-11-05 17:03] LABS: Glucose - Point of Care 180 mg/dl (70-99)
--- NOTE | 2024-11-05 17:07 | W.PN.UPDATE ---
Update Note
Progress Note Update
Seen and examined by me independently in collaboration with the medical coding specialist.
Lab data and imaging data reviewed.
Addendum as below :
Patient feeling improved today. She feels still some stinging with urination she thinks that her UTI is driving a white count. White count is improving. Improved cough. Denies shortness of breath. Using minimal FiO2 via nasal cannula. Chest
sounds clear. Chest x-ray does not suggest any focal opacity or pneumonia. Straight cath urine specimen shows no pyuria but there is yeast raising concern for candiduria. She was initially on doxycycline for possible bronchitis and now
ceftriaxone was added for possibility of a UTI based on initial UA. White count is improving with 70 foci of infection not clear. Consult ID.
[2024-11-05] MEDS: HEPARIN SC (20:53)
[2024-11-05] MEDS: LANTUS 0.03 UNITS SC (21:51)
[2024-11-05 21:58] LABS: Glucose - Point of Care 173 mg/dl (70-99)
[2024-11-05 23:23] VITALS: BP 121/59
[2024-11-06] MEDS: ROXICODONE 2.5 MG PO ×3 (02:06→21:13)
[2024-11-06] MEDS: MUCINEX 600 MG PO ×2 (03:50→20:01)
[2024-11-06 06:00] VITALS: BMI 23.1
[2024-11-06 06:18] LABS: % Basophils 1.1 % (0-2); % Eosinophils 2.7 % (0-6); % Immature Granulocytes 0.8 % (0-0.5); % Lymphocytes 14.5 % (20.5-51.1); % Monocytes 10.3 % (1.7-9.3); % Neutrophils 70.6 % (42.2-75.2); Absolute Basophils 0.1 10^3/uL (0-0.2); Absolute Eosinophils 0.3 10^3/uL (0-0.7); Absolute Immature Granulocytes 0.1 10^3/uL (0-0.05); Absolute Lymphocytes 1.8 10^3/uL (1.2-3.4); Absolute Monocytes 1.3 10^3/uL (0.1-0.6); Absolute Neutrophils 8.7 10^3/uL (1.4-6.5); Hematocrit 29.9 % (37.0-47.0); Hemoglobin 9.1 g/dL (12.0-16.0); Mean Corp Hgb Conc. 30.4 g/dL (33.0-37.0); Mean Corpuscular Hgb 25.6 pg (27.0-31.0); Mean Corpuscular Volume 84.2 fL (81.0-99.0); Mean Platelet Volume 9.3 fL (7.4-10.4); Nucleated Red Blood Cells % 0 %; Platelet Count 372 10^3/uL (130-400); Red Blood Cell Count 3.55 10^6/uL (4.20-5.40); Red Cell Dist. Width 18.9 % (11.5-14.5); White Blood Cell Count 12.4 10^3/uL (4.8-10.8)
[2024-11-06 07:20] LABS: Glucose - Point of Care 193 mg/dl (70-99)
[2024-11-06 07:30] VITALS: BP 146/84
[2024-11-06] MEDS: NOVOLOG FLEXPEN 2 UNITS SC ×3 (09:01→17:19)
[2024-11-06] MEDS: VISBIOME 1 CAP PO (09:02)
[2024-11-06] MEDS: NOVOLOG FLEXPEN-LOW RESISTANCE 1 UNITS SC ×3 (09:02→17:22)
[2024-11-06] MEDS: DIFLUCAN 100 MG PO (09:02)
[2024-11-06] MEDS: VIBRAMYCIN 100 MG PO (09:03)
[2024-11-06] MEDS: LOW STRENGTH ASPIRIN 81 MG PO (09:03)
[2024-11-06] MEDS: PLAVIX 75 MG PO (09:03)
[2024-11-06] MEDS: HYDROPHOR 1 APPLIC TOPICAL (09:06)
[2024-11-06] MEDS: TYLENOL 650 MG PO (09:12)
[2024-11-06] MEDS: COREG PO ×2 (09:26→20:01)
[2024-11-06] MEDS: BUMEX PO (09:26)
[2024-11-06] MEDS: HEPARIN SC ×2 (09:27→20:01)
[2024-11-06] MEDS: ROCEPHIN 1000 MG IV (10:20)
[2024-11-06] MEDS: STERILE WATER FOR INJECTION 10 ML IV (10:20)
[2024-11-06] MEDS: DRISDOL (VITAMIN D2) 50000 UNITS PO (10:20)
--- NOTE | 2024-11-06 11:33 | W.PN.UPDATE ---
Update Note
Progress Note Update
Seen and examined by me independently in collaboration with the medical director.
Lab data and imaging data reviewed.
Addendum as below :
Patient is feeling more improved in general. She is more conversive and interactive. Voices no specific complaints today.
Afebrile. White count is improving. Tolerating diet without nausea or vomiting. Denies shortness of breath.
Appreciate ID input-antifungal added to antibiotic regimen. Continue with antimicrobial per ID.
CW HD as scheduled.
DC planning in a.m. to acute rehab if bed available.
--- NOTE | 2024-11-06 11:40 | W.PN.NEPH.PH ---
Today's Communication / Plan
-
No acute need for dialysis today
Assessment/Plan
-
48-year-old female past medical history of right diabetic foot infection status post fifth toe amputation, peripheral arterial disease, ESRD on hemodialysis Thursday [facility] [address] [place] [address]
Impression:
ESRD
Thursday
Hyperkalemia
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
recent diabetic foot infection of right lateral foot possible osteomyelitis status post angiogram with stent placement on 07/08/2024
History of right diabetic foot infection status post fifth toe amputation on 12/06 and revision fourth toe amputation on 12/13
Peripheral arterial disease status post diagnostic arteriogram, intravascular lithotripsy of the posterior tibial artery and proximal SFA, balloon angioplasty and nitroglycerin injection of posterior tibial artery on 12/21/23
Chronic transaminitis
Type 1 diabetes
ESRD on hemodialysis Thursday and Thursday (stopped two months prior)
Chronic HFpEF
chronic anemia
Moderate aortic stenosis/aortic regurgitation
Mild to moderate mitral stenosis
Paroxysmal SVT
Iron deficiency anemia
History of CVA
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
Plan:
Dialysis Thursday
See orders
Antibiotics for candidiasis vulvovaginal area per ID
-
-
Date of Service: November 06, 2024
CC / HPI / ROS
-
Chief Complaint:
Presents with
Confusion altered mental status difficulty hearing
History of Present Illness:
ESRD Thursday volume overloaded chronic foot infection status post amputation
BP stable
Review of Systems:
no CP
No fever
Labs
-
Labs:
WBC 12.4 10^3/uL (4.8-10.8) H 11/06/24 05:36
RBC 3.55 10^6/uL (4.20-5.40) L 11/06/24 05:36
Hgb 9.1 g/dL (12.0-16.0) L 11/06/24 05:36
Hct 29.9 % (37.0-47.0) L 11/06/24 05:36
Plt Count 372 10^3/uL (130-400) 11/06/24 05:36
Sodium 138 mmol/L (135-145) 11/04/24 06:23
Potassium 4.0 mmol/L (3.5-5.1) 11/04/24 06:23
Chloride 101 mmol/L (98-107) 11/04/24 06:23
Carbon Dioxide 23 mmol/L (22-30) 11/04/24 06:23
BUN 35 mg/dl (7-17) H 11/04/24 06:23
Creatinine 3.5 mg/dL (0.6-1.0) H 11/04/24 06:23
eGFR 15.36 11/04/24 06:23
Glucose 120 mg/dl (70-99) H 11/04/24 06:23
Calcium 8.9 mg/dl (8.4-10.2) 11/04/24 06:23
Phosphorus 3.2 mg/dl (2.5-4.5) 10/28/24 20:53
Albumin 3.2 g/dl (3.5-5.0) L 11/02/24 04:11
Physical Exam
-
Vital Signs:
Vital Signs
Temp Pulse Resp BP Pulse Ox
98.5 F 95 16 146/84 98
11/06/24 07:30 11/06/24 07:30 11/06/24 07:30 11/06/24 07:30 11/06/24 07:30
Cardiovascular:: Regular rate and rhythm
Respiratory:: Bilateral: CTA
Lung Excursion:: Normal
Abdomen:: Nontender and Soft
Bowel Sounds:: Normal
Extremity Edema:: None: Bilateral:
--- NOTE | 2024-11-06 11:56 | W.PN.HOSP.TC ---
Today's Communication/Plan
-
c/w abx, antifungals, trend cbc/temp, pending bed at [facility] for [facility]
Assessment / Plan
Assessment / Plan
49 year old female presenting with extreme fatigue s/p Dialysis
#Sepsis
Secondary to UTI vs. Bronchitis vs. yeast infection vs. less likely skin/soft tissue
- WBCs have been increasing despite doxy for bronchitis, UA showing asymptomatic pyuria
- elbow, sacral, breast wounds clean dry intact/healing
- MRSA colonization
- Spiked fever/tachycardia/tachypnea overnight -- blood cx drawn -- NGTD
- repeat flu/covid negative
- repeat UA showing LE, mod bacteria, many yeast
- start Diflucan x3d -- leukocytosis improving
#Pyuria/Bacteriuria
- UA + for LE, wbcs, bacteria, rbcs, yeast. Rflex culture showing possible contamination.
- repeat culture pending
- completed Ceftriaxone 4d course
#Persistent Productive Cough
#Bronchitis, possibly secondary to aspiration
- persistent cough since 10/22, productive of sputum -- continued despite Mucinex & improvement in fluid status w/ Dialysis
- concern for aspiration -- VSE shows silent aspiration of thin liquid -- recommending OP ENT consult for vocal fold integrity given dysphonia -- pt continues to drink thin liquids
- repeat CXR 11/02/2024 no acute cardiopulmonary process
- Pt refusing mucinex and antihistamines for post nasal drip. Agreeable to chest PT/acapella
- productive sputum is yellow/thick, suspicious for bronchitis w/ physical exam findings and new rising leukocytosis
- repeat 2 view CXR showing no significant pleural effusion and mild pulm. edema
- c/w doxycycline day 5
#R BKA
#Nonhealing R Dorsal Foot Wound
- c/w gerri wrap, pain management
(Would like to go to [facility] after surgery) -- physiatry consult -- approved, waiting for bed
- post-op pain control with Tylenol and Oxy 2.5mg q4prn
#Acute Exacerbation of HFpEF
- Last Echo 12/2023 showing EF 65-70%, multivalvular disease, elevated PASP 60-65mmHg and Stage II diastolic dysfunction
- repeat Echo showing 75%EF, flattening of septum consistent w/ elevated RV volume, moderate , Mod. AR, Mod. TR. PASP decreased to 30-35mmHg. RV function is worse on today's echo when compared to prior 12/2023.
- clinical signs of acute on chronic volume overload
- was on 2L NC, intermittently requiring, more so at night -- still on 2-3L NC
- c/w Coreg, Bumex, dialysis per Nephro
#ESRD (on dialysis MWF)
#Hyperkalemia
- R sided tunnelled dialysis cath. last received 10/18/2024
- Is on Bumex POA, patient states she makes urine
- c/w dialysis MWF per nephro
#Nonischemic Myocardial Injury
#Elevated troponins (resolved)
- chest pain and pressure, troponinemia, ECG showing sinus rhythm with PACs
- trops peaked
- Echo this admission with worsening RV function compared to December 2023
- Pt refusing heart cath -- Nuclear stress test -- no perfusion defect seen -- resolution of cp -- now stable
#New stage 1 sacral wound - clean, dressing dry and intact
CHRONIC STABLE
#Multiple acute on chronic non-healing ulcers of various stages
#R heel with blistering and suspected stage 3 Pressure Injury
- wound care following, c/w dressings and ointment
#Pica Disorder
#H/o Depression
- patient endorses a compulsion to eat matches. She states she has been doing so since she was young, and that during times of stress she may consume as many as 100 matches per day.
- Matches contain potassium chlorate, sulfur, glue, red phosphorus, ammonium phosphate and paraffin, all of which are at the very least nephrotoxic
- Psych consulted; nephro aware.
- Psych rec. antidepressants but patient not receptive to the idea at this time
#Anemia, likely secondary to chronic disease and ESRD
- hgb at baseline, no signs of active bleeding
- given one dose EPO
- transfuse to keep hgb >7
#IDDM Type I (correction, further chart review reveals Type I, prior documentation by me says Type II; it is Type I).
- h/o of poorly controlled Type I DM, prior A1Cs seem to be around 9-11% -- repeat A1C% this admission 9.0%
- c/w 3U long acting QHS and 2U AC, POC glucose checks
- c/w statin
#H/o R metatarsal amputation
#H/o osteomyelitis
#h/o CVA w/o residual deficit - c/w aspirin/plavix
#h/o Paroxysmal SVT
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
#chronic hearing loss, secondary to diabetic neuropathy
Regular Diet
DVT Ppx: Heparin SC
Code Status: Full Code
Anticipated Discharge: 24 - 48 hours
Subjective/Interval History
-
Date of Service: November 06, 2024
Feels well this morning, no new fevers or chills. Cough steadily improving. burning/Itching in the groin improving
Objective Data
-
Labs:
Laboratory Results
11/06/24
05:36
WBC 12.4 H
Hgb 9.1 L
Hct 29.9 L
Plt Count 372
Vital Signs:
Vital Signs
Temp Pulse Resp BP Pulse Ox
98.5 F 95 16 146/84 98
11/06/24 07:30 11/06/24 07:30 11/06/24 07:30 11/06/24 07:30 11/06/24 07:30
I&O
11/05/24 11/06/24 11/07/24
06:59 06:59 06:59
Intake Total 520 / 520 1080 / 1080
Output Total 350 / 350 0 / 0
Balance 170 / 170 1080 / 1080
Review of Systems
-
History Source: Patient
Constitutional: Reports No Symptoms
EENT: Reports No Symptoms Reported
Respiratory: Reports Cough; Denies Hemoptysis, Trouble Breathing or Wheezing
Cardiac: Reports No Symptoms
Abdomen/GI: Reports No Symptoms
Genitourinary: Reports Other; Denies Dysuria, Flank Pain, Discharge or Vaginal Bleeding
Musculoskeletal: Reports No Symptoms
Skin: Reports No Symptoms
Neuro: Reports No Symptoms
Physical Exam
-
General: No Apparent Distress, Comfortable and Appears Chronically Ill
HEENT: Normocephalic, Atraumatic, Moist Mucous Membranes, Anicteric, [place] Conjunctivae, Nose Appears Normal, Ears Appear Normal and Oxygen
Respiratory: Rhonchi and Non Labored Respirations; Negative Wheezes or Rales
Cardiac: Regular Rhythm, S1/S2 and Murmur; Negative Rub or Calf Tenderness
GI: Nontender, Nondistended and Normal Bowel Sounds; Negative Soft
Musculoskeletal: No Clubbing, No Cyanosis and No Edema
Skin: Warm, Dry and IV Access / Catheter Site
Neuro: AO x 3
--- NOTE | 2024-11-06 12:00 | W.PN.ID1 ---
Date of Service
Date of Service: November 06, 2024
Today's Communication
Continue antibiotics.
Assessment / Plan
Low-grade fever
- improved
Leukocytosis
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
Suspected vulvovaginal candidiasis
ESRD-HD
IDDM (uncontrolled; HbA1c = 9.0)
PAD
Diastolic CHF
Anemia
Hx CVA
Paroxysmal SVT
Hx Guillain-Song� with chronic LLE weakness
Right eye blindness
Recommendations:
At present, difficult to ascertain whether there is a true urinary tract infection given that the urinalysis shows contamination with epithelial cells. Urine culture from 11/04 will need to be interpreted with caution.
Continue with empiric ceftriaxone and doxycycline for the present.
Continue 3-day course of Diflucan.
Monitor white count and temperature curve
Chief Complaint
-: Fever
Subjective / Review of Systems
Some decrease in vulvovaginal discomfort.
Review of Systems: No Fever
Vital Signs / Physical Exam
Vital Signs
Vital Signs
Temp Pulse Resp BP Pulse Ox
98.5 F 95 16 146/84 98
11/06/24 07:30 11/06/24 07:30 11/06/24 07:30 11/06/24 07:30 11/06/24 07:30
Physical Exam
Constitutional: No Acute Distress, Comfortable and Chronically Ill
Eyes: Sclera Anicteric
Pulmonary: Non Labored
Neurological: Awake and Alert
Psychological: Calm
Objective Data
Lab Data
Lab Results
11/06/24 05:36
11/04/24 06:23
PT 15.3 Sec (11.4-14.6) H 10/29/24 04:36
INR 1.18 10/29/24 04:36
APTT 36.3 Sec (23.4-35.0) H 10/29/24 04:36
Estimated Creat Clear 16 ml/min 11/04/24 06:23
Lactic Acid 1.4 mmol/L (0.7-2.0) 11/04/24 20:52
Total Bilirubin 0.9 mg/dl (0.2-1.3) 11/02/24 04:11
AST 19 U/L (14-36) 11/02/24 04:11
ALT < 10 U/L (0-35) 11/02/24 04:11
Alkaline Phosphatase 310 U/L (38-126) H 11/02/24 04:11
Most recent labs reviewed.
Micro Results:
11/04/24 21:48 Blood Culture - Preliminary
Blood/Venous No Growth in 24 hours- Final report to follow
11/04/24 20:52 Blood Culture - Preliminary
Blood/Venous No Growth in 24 hours- Final report to follow
11/04/24 21:43 Urine Culture - Pending
Urine
11/04/24 20:52 Influenza Types A & B (JOSEPH) - Final
Nasal Swab Negative for Influenza A & B, NAAT
Negative results must be combined with clinical observations
and patient history.
Nucleic Acid Amplification test (NAAT)performed on the
[employer] platform.
11/02/24 11:21 Urine Culture - Final
Urine
10/24/24 12:37 Influenza Types A & B (JOSEPH) - Final
Nasal Swab Negative for Influenza A & B, NAAT
Negative results must be combined with clinical observations
and patient history.
Nucleic Acid Amplification test (NAAT)performed on the
[employer] platform.
10/18/24 13:57 Blood Culture - Final
Blood/Venous No Growth - Final Report
10/18/24 13:32 Blood Culture - Final
Blood/Venous No Growth - Final Report
10/18/24 20:03 MRSA Screen - Final
Nose Staph aureus MRSA
10/18/24 13:32 Influenza Types A & B (JOSEPH) - Final
Nasal Swab Negative for Influenza A & B, NAAT
Negative results must be combined with clinical observations
and patient history.
Nucleic Acid Amplification test (NAAT)performed on the
[employer] platform.
Imaging:
11/04/2024 CXR (2 view): Mild cardiomegaly. No pleural effusion. No evidence of lobar airspace consolidation or pneumothorax. No overt infiltrate appreciated.
Care Review
Plan reviewed with: Physician (Hospitalist)
[2024-11-06 12:07] LABS: Glucose - Point of Care 168 mg/dl (70-99)
[2024-11-06 15:30] VITALS: BP 139/63
[2024-11-06 16:59] LABS: Glucose - Point of Care 181 mg/dl (70-99)
[2024-11-06] MEDS: LIDOCAINE 4% PATCH 1 PATCH TOPICAL (17:18)
[2024-11-06] MEDS: LIPITOR 80 MG PO (17:19)
[2024-11-06 21:00] LABS: Glucose - Point of Care 147 mg/dl (70-99)
[2024-11-06] MEDS: LANTUS 0.03 UNITS SC (21:14)
[2024-11-06 23:28] VITALS: BP 157/69
[2024-11-07] MEDS: ROXICODONE 2.5 MG PO ×3 (03:02→21:00)
[2024-11-07 05:08] VITALS: BMI 23.2
[2024-11-07 07:15] LABS: Glucose - Point of Care 259 mg/dl (70-99)
[2024-11-07 07:42] VITALS: BP 150/63
[2024-11-07] MEDS: NOVOLOG FLEXPEN-LOW RESISTANCE 3 UNITS SC (08:13)
[2024-11-07] MEDS: NOVOLOG FLEXPEN 2 UNITS SC (08:13)
[2024-11-07] MEDS: PLAVIX 75 MG PO (08:14)
[2024-11-07] MEDS: LOW STRENGTH ASPIRIN 81 MG PO (08:14)
[2024-11-07] MEDS: VISBIOME 1 CAP PO (08:14)
[2024-11-07] MEDS: DIFLUCAN 100 MG PO (08:14)
[2024-11-07] MEDS: HYDROPHOR 1 APPLIC TOPICAL (08:17)
[2024-11-07 08:23] LABS: % Basophils 1.4 % (0-2); % Eosinophils 3.9 % (0-6); % Immature Granulocytes 0.6 % (0-0.5); % Monocytes 9.9 % (1.7-9.3); % Neutrophils 67.2 % (42.2-75.2); Absolute Basophils 0.2 10^3/uL (0-0.2); Absolute Eosinophils 0.4 10^3/uL (0-0.7); Absolute Immature Granulocytes 0.1 10^3/uL (0-0.05); Absolute Lymphocytes 1.9 10^3/uL (1.2-3.4); Absolute Monocytes 1.1 10^3/uL (0.1-0.6); Absolute Neutrophils 7.3 10^3/uL (1.4-6.5); Hematocrit 30.8 % (37.0-47.0); Hemoglobin 9.3 g/dL (12.0-16.0); Mean Corp Hgb Conc. 30.2 g/dL (33.0-37.0); Mean Corpuscular Hgb 25.8 pg (27.0-31.0); Mean Corpuscular Volume 85.3 fL (81.0-99.0); Mean Platelet Volume 9.3 fL (7.4-10.4); Nucleated Red Blood Cells % 0 %; Platelet Count 400 10^3/uL (130-400); Red Blood Cell Count 3.61 10^6/uL (4.20-5.40); Red Cell Dist. Width 18.7 % (11.5-14.5); White Blood Cell Count 10.9 10^3/uL (4.8-10.8)
[2024-11-07] MEDS: MUCINEX 600 MG PO ×2 (08:23→21:01)
[2024-11-07 09:06] LABS: Blood Urea Nitrogen 44 mg/dl (7-17); Carbon Dioxide 28 mmol/L (22-30); Chloride 99 mmol/L (98-107); Estimated Creatinine Clearance 16 ml/min; Glucose 127 mg/dl (70-99); Potassium 4.3 mmol/L (3.5-5.1); Sodium 138 mmol/L (135-145); eGFR 14.85
[2024-11-07] MEDS: HEPARIN SC ×3 (09:25→21:08)
[2024-11-07] MEDS: COREG PO ×3 (09:25→21:08)
--- NOTE | 2024-11-07 09:42 | W.PN.HOSP.TC ---
Addendum entered and electronically signed by Klever Maher MD 11/07/24 23:57:
Attending Addendum-
I saw and evaluated the patient. I reviewed the resident�s note and agree with findings and plan as documented in the resident�s note. Sub: 'am i going today?' Seen on HD at bedside. Has phantom pain. Full 12 point ROS reviewed and negative except
as documented Exam: Vitals reviewed in chart GEN-NAD heart RRR lungs crackles at bases abd soft right BKA bandaged stump
Plan:
#Sepsis
yeast infection vs. Bronchitis
- repeat flu/covid negative
- repeat UA showing LE, mod bacteria, many yeast
- complete Diflucan x3d -- leukocytosis improving
- complete 7 day course cef/doxy->PO
#Nonhealing R Dorsal Foot Wound
- s/p right BKA on 10/28
- c/w gerri wrap, pain management
- post-op pain control with Tylenol and Oxy 2.5mg q4prn
#Acute Exacerbation of HFpEF
- cont UF via HD
- was on 2L NC, intermittently requiring, more so at night -- still on 2-3L NC
- c/w Coreg, Bumex, dialysis per Nephro
#ESRD (on dialysis MWF)
#Hyperkalemia
- HD today 11/07
- R sided tunnelled dialysis cath
- Is on Bumex POA, patient states she makes urine
#Nonischemic Myocardial Injury
#Elevated troponins (resolved)
- trops peaked
- Echo this admission with worsening RV function compared to December 2023
- Pt refusing heart cath -- Nuclear stress test -- no perfusion defect seen -- resolution of cp -- now stable
#New stage 1 sacral wound - clean, dressing dry and intact
#Multiple acute on chronic non-healing ulcers of various stages
#R heel with blistering and suspected stage 3 Pressure Injury
- wound care following, c/w dressings and ointment
#Pica Disorder
#H/o Depression
- patient endorses a compulsion to eat matches. She states she has been doing so since she was young, and that during times of stress she may consume as many as 100 matches per day.
- Matches contain potassium chlorate, sulfur, glue, red phosphorus, ammonium phosphate and paraffin, all of which are at the very least nephrotoxic
- Psych consulted; nephro aware.
- Psych rec. antidepressants but patient not receptive to the idea at this time
#Anemia, likely secondary to chronic disease and ESRD
- hgb at baseline, no signs of active bleeding
- given one dose EPO
- transfuse to keep hgb >7
#IDDM Type I
- h/o of poorly controlled Type I DM, prior A1Cs seem to be around 9-11% -- repeat A1C% this admission 9.0%
- c/w 3U long acting QHS and 2U AC, POC glucose checks
- c/w statin
#H/o R metatarsal amputation
#H/o osteomyelitis
#h/o CVA w/o residual deficit - c/w aspirin/plavix
#h/o Paroxysmal SVT
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
#chronic hearing loss, secondary to diabetic neuropathy
Regular Diet
DVT Ppx: Heparin SC
Code Status: Full Code
Dispo DC to [facility] [place] in am
Time spent coordinating care, review of plan of care with resident, personally reviewed records in EMR, med rec, consults, notes, labs, radiology, d/w nursing � 51 mins
Original Note:
Today's Communication/Plan
-
Hemodialysis today
Awaiting bed at [facility]
Assessment / Plan
Assessment / Plan
Impression
Shea is for 49 year old female, presenting with extreme fatigue s/p Dialysis. Presented with confusion and lethargy and had large right foot dorsal ulcer. She was also septic suspected to be secondary to bronchitis, urinary tract infection and
vulvovaginal candidiasis. On presentation she had hyperkalemia, leukocytosis and low-grade fevers. Started on ceftriaxone, doxycycline and 3-day course of Diflucan. Patient becoming more conversant and more oriented. Right foot below-knee
amputation was done which is healing well and awaiting [facility].
Sepsis
Secondary to UTI vs. Bronchitis vs. yeast infection vs. less likely skin/soft tissue
Currently on doxycycline, ceftriaxone and Diflucan
Completed 3 days of Diflucan
Doxycycline day 6 and ceftriaxone day 5 complete 7-day course
Elbow, sacral, breast wounds clean dry intact/healing
repeat flu/covid negative
UA showing LE, mod bacteria, many yeast
#Pyuria/Bacteriuria
UA + for LE, wbcs, bacteria, rbcs, yeast. Rflex culture showing possible contamination.
Completed 3 days of Diflucan today
Complete 7 days of doxycycline and ceftriaxone
Persistent Productive Cough
#Bronchitis, possibly secondary to aspiration
persistent cough since 10/22, productive of sputum -- continued despite Mucinex & improvement in fluid status w/ Dialysis
concern for aspiration -- VSE shows silent aspiration of thin liquid -- recommending OP ENT consult for vocal fold integrity given dysphonia -- pt continues to drink thin liquids
repeat CXR 11/02/2024 no acute cardiopulmonary process
Pt refusing mucinex and antihistamines for post nasal drip. Agreeable to chest PT/acapella
productive sputum is yellow/thick, suspicious for bronchitis w/ physical exam findings and new rising leukocytosis
repeat 2 view CXR showing no significant pleural effusion and mild pulm. edema
Complete 7-day course with ceftriaxone and doxycycline
#R BKA
Complains of some phantom limb pain, otherwise feels well
- c/w gerri wrap, pain management
Awaiting bed at [facility]
Bed available by tomorrow
#Acute Exacerbation of HFpEF
Last Echo 12/2023 showing EF 65-70%, multivalvular disease, elevated PASP 60-65mmHg and Stage II diastolic dysfunction
repeat Echo showing 75%EF, flattening of septum consistent w/ elevated RV volume, moderate , Mod. AR, Mod. TR. PASP decreased to 30-35mmHg. RV function is worse on today's echo when compared to prior 12/2023.
clinical signs of acute on chronic volume overload
was on 2L NC, intermittently requiring, more so at night -- still on 2-3L NC
c/w Coreg, Bumex, dialysis per Nephro
# Other medical conditions
#ESRD (on dialysis MWF)-dialysis done today
#Hyperkalemia
- R sided tunnelled dialysis cath. last received 10/18/2024
- Is on Bumex POA, patient states she makes urine
- c/w dialysis MWF per nephro
#Nonischemic Myocardial Injury
#Elevated troponins (resolved)
- chest pain and pressure, troponinemia, ECG showing sinus rhythm with PACs
- trops peaked
- Echo this admission with worsening RV function compared to December 2023
- Pt refusing heart cath -- Nuclear stress test -- no perfusion defect seen -- resolution of cp -- now stable
#Multiple acute on chronic non-healing ulcers of various stages
#Pica Disorder
#H/o Depression
patient endorses a compulsion to eat matches. She states she has been doing so since she was young, and that during times of stress she may consume as many as 100 matches per day.
Matches contain potassium chlorate, sulfur, glue, red phosphorus, ammonium phosphate and paraffin, all of which are at the very least nephrotoxic
Psych rec. antidepressants but patient not receptive to the idea at this time
#Anemia, likely secondary to chronic disease and ESRD
- hgb at baseline, no signs of active bleeding
- given one dose EPO
- transfuse to keep hgb >7
#IDDM Type I (correction, further chart review reveals Type I, prior documentation by me says Type II; it is Type I).
- h/o of poorly controlled Type I DM, prior A1Cs seem to be around 9-11% -- repeat A1C% this admission 9.0%
- c/w 3U long acting QHS and 2U AC, POC glucose checks
- c/w statin
#H/o R metatarsal amputation
#H/o osteomyelitis
#h/o CVA w/o residual deficit - c/w aspirin/plavix
#h/o Paroxysmal SVT
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
#chronic hearing loss, secondary to diabetic neuropathy
Regular Diet
DVT Ppx: Heparin SC
Code Status: Full Code
Anticipated Discharge: Within 24 hours
Subjective/Interval History
-
Date of Service: November 07, 2024
Patient is awake and oriented
Sitting comfortably on bed, currently on 2 L of oxygen via nasal cannula
Conversant, judgment and insight good, navigating through physical therapy, hemodialysis, and breathing issues 1 at a time as per patient's words
Objective Data
-
Labs:
Laboratory Results
11/07/24
08:02
WBC 10.9 H
Hgb 9.3 L
Hct 30.8 L
Plt Count 400
Sodium 138
Potassium 4.3
Chloride 99
Carbon Dioxide 28
BUN 44 H
Creatinine 3.6 H
Glucose 127 H
Calcium 9.0
Vital Signs:
Vital Signs
Temp Pulse Resp BP Pulse Ox
98.5 F 90 16 150/63 96
11/07/24 07:42 11/07/24 07:42 11/07/24 07:42 11/07/24 07:42 11/07/24 07:42
I&O
11/06/24 11/07/24 11/08/24
06:59 06:59 06:59
Intake Total 1080 / 1080 720 / 720
Output Total 0 / 0 0 / 0
Balance 1080 / 1080 720 / 720
Review of Systems
-
History Source: Patient
Constitutional: Reports No Appetite, Fatigue and Weakness
Respiratory: Reports Cough
Abdomen/GI: Reports No Symptoms
Breast: Reports No Symptoms
Genitourinary: Reports No Symptoms
Musculoskeletal: Reports Myalgias
Skin: Reports Other (Wounds on elbow, sacral region and breast)
Psych: Reports Anxious
Physical Exam
-
General: No Apparent Distress, Appears Chronically Ill and Other (Scar maggi visible on chest from CABG)
HEENT: Normocephalic, Atraumatic, Anicteric and Oxygen (On 2 L of oxygen via nasal cannula)
Respiratory: Clear to Auscultation and Other (Harsh vesicular breathing)
Cardiac: Regular Rhythm, S1/S2, Murmur (Systolic murmur in the aortic area), Tachycardic and Other (Scar maggi on chest from CABG)
GI: Soft, Nontender and Nondistended
Musculoskeletal: No Clubbing and Other (Right-sided below-knee amputation, pulses intact on the left foot, no edema on left leg)
Skin: Warm and Dry
Neuro: Awake and Oriented
Psych: Calm and Intact Judgement/Insight
[2024-11-07 10:37] VITALS: BP 149/68; PULSE 91; O2SAT 100
--- NOTE | 2024-11-07 11:51 | W.PN.ID1 ---
Date of Service
Date of Service: November 07, 2024
Today's Communication
Continue antibiotics. See below�
Assessment / Plan
Low-grade fever
- improved
Leukocytosis
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
Suspected vulvovaginal candidiasis
ESRD-HD
IDDM (uncontrolled; HbA1c = 9.0)
PAD
Diastolic CHF
Anemia
Hx CVA
Paroxysmal SVT
Hx Guillain-Song� with chronic LLE weakness
Right eye blindness
Recommendations:
At present, difficult to ascertain whether there is a true urinary tract infection given that the urinalysis shows contamination with epithelial cells. Urine culture from 11/04 will need to be interpreted with caution.
Continue with empiric ceftriaxone (d#5) and doxycycline (d#6) for the present. Would complete a 7-day course in total.
Completing a 3-day course of Diflucan today.
Monitor white count and temperature curve
Chief Complaint
-: Fever and Leukocytosis
Subjective / Review of Systems
Patient seen and examined. Reports vaginal irritation has improved.
Review of Systems: No Fever and No Chills
Vital Signs / Physical Exam
Vital Signs
Vital Signs
Temp Pulse Resp BP Pulse Ox
98.5 F 90 16 150/63 96
11/07/24 07:42 11/07/24 07:42 11/07/24 07:42 11/07/24 07:42 11/07/24 07:42
Physical Exam
Constitutional: No Acute Distress, Comfortable and Chronically Ill
Eyes: Sclera Anicteric
Pulmonary: Non Labored
Gastrointestinal: Non Distended
Neurological: Awake and Alert
Psychological: Calm
Objective Data
Lab Data
Lab Results
11/07/24 08:02
11/07/24 08:02
PT 15.3 Sec (11.4-14.6) H 10/29/24 04:36
INR 1.18 10/29/24 04:36
APTT 36.3 Sec (23.4-35.0) H 10/29/24 04:36
Estimated Creat Clear 16 ml/min 11/07/24 08:02
Lactic Acid 1.4 mmol/L (0.7-2.0) 11/04/24 20:52
Total Bilirubin 0.9 mg/dl (0.2-1.3) 11/02/24 04:11
AST 19 U/L (14-36) 11/02/24 04:11
ALT < 10 U/L (0-35) 11/02/24 04:11
Alkaline Phosphatase 310 U/L (38-126) H 11/02/24 04:11
Most recent labs reviewed.
Micro Results:
11/04/24 21:48 Blood Culture - Preliminary
Blood/Venous No Growth in 48 hours- Final report to follow
11/04/24 20:52 Blood Culture - Preliminary
Blood/Venous No Growth in 48 hours- Final report to follow
11/04/24 21:43 Urine Culture - Final
Urine
11/04/24 20:52 Influenza Types A & B (JOSEPH) - Final
Nasal Swab Negative for Influenza A & B, NAAT
Negative results must be combined with clinical observations
and patient history.
Nucleic Acid Amplification test (NAAT)performed on the
[employer] platform.
11/02/24 11:21 Urine Culture - Final
Urine
10/24/24 12:37 Influenza Types A & B (JOSEPH) - Final
Nasal Swab Negative for Influenza A & B, NAAT
Negative results must be combined with clinical observations
and patient history.
Nucleic Acid Amplification test (NAAT)performed on the
[employer] platform.
10/18/24 13:57 Blood Culture - Final
Blood/Venous No Growth - Final Report
10/18/24 13:32 Blood Culture - Final
Blood/Venous No Growth - Final Report
10/18/24 20:03 MRSA Screen - Final
Nose Staph aureus MRSA
10/18/24 13:32 Influenza Types A & B (JOSEPH) - Final
Nasal Swab Negative for Influenza A & B, NAAT
Negative results must be combined with clinical observations
and patient history.
Nucleic Acid Amplification test (NAAT)performed on the
[employer] platform.
Imaging:
11/04/2024 CXR (2 view): Mild cardiomegaly. No pleural effusion. No evidence of lobar airspace consolidation or pneumothorax. No overt infiltrate appreciated.
[2024-11-07] MEDS: TYLENOL 650 MG PO (12:01)
[2024-11-07 12:21] LABS: Glucose - Point of Care 116 mg/dl (70-99)
[2024-11-07] MEDS: NOVOLOG FLEXPEN-LOW RESISTANCE SC ×2 (12:46→17:13)
[2024-11-07] MEDS: NOVOLOG FLEXPEN SC (12:46)
[2024-11-07] MEDS: RETACRIT 10000 UNITS IV (13:39)
--- NOTE | 2024-11-07 14:30 | W.PN.NEPH.HD ---
Assessment
-
Seen on HD. no complaints. VSS, access ok
BP dropped when UF set at 2kg (gain 1kg)
Progress Note - Hemodialysis
-
Date of Service: November 07, 2024
Duration: 30 minutes and 3 hours
Potassium Bath: 3
Calcium Bath: 2.5
Opti-Dialyzer: 160
Ultrafiltration: Other (1kg)
Blood Flow: 400
Dialysate Flow: 600
Heparin: 0
EPO: 20097 units
--- NOTE | 2024-11-07 14:33 | CM ---
Reviewed the chart notes and spoke with Joanne acting Admissions Liaison for [place]. Per Joanne, bed will be available at [facility] after 3pm tomorrow. Auth is good until 11/08/2024. CM continues to be available to patient/family and is
monitoring medical plan for needs at discharge.
Plan: Discharge to [facility] tomorrow.
[2024-11-07 15:30] VITALS: BP 146/60
[2024-11-07 17:09] LABS: Glucose - Point of Care 121 mg/dl (70-99)
[2024-11-07] MEDS: LIPITOR 80 MG PO (17:14)
[2024-11-07] MEDS: DULCOLAX 10 MG RECTAL (17:16)
[2024-11-07] MEDS: LIDOCAINE 4% PATCH 1 PATCH TOPICAL (18:13)
[2024-11-07] MEDS: LANTUS 0.03 UNITS SC (21:07)
[2024-11-07 21:08] LABS: Glucose - Point of Care 296 mg/dl (70-99)
[2024-11-07 23:02] VITALS: BP 120/54
[2024-11-07 23:32] VITALS: BP 120/54
[2024-11-08 06:00] VITALS: BMI 22.6
[2024-11-08 07:30] VITALS: BP 123/51
[2024-11-08 07:36] LABS: Glucose - Point of Care 98 mg/dl (70-99)
[2024-11-08 07:38] LABS: Hematocrit 31.4 % (37.0-47.0); Hemoglobin 9.6 g/dL (12.0-16.0); Mean Corp Hgb Conc. 30.6 g/dL (33.0-37.0); Mean Corpuscular Hgb 25.9 pg (27.0-31.0); Mean Corpuscular Volume 84.9 fL (81.0-99.0); Mean Platelet Volume 9.3 fL (7.4-10.4); Platelet Count 379 10^3/uL (130-400); Red Cell Dist. Width 18.7 % (11.5-14.5); White Blood Cell Count 10.5 10^3/uL (4.8-10.8)
[2024-11-08 08:06] LABS: ALT (SGPT) < 10 U/L (0-35); AST (SGOT) 23 U/L (14-36); Alkaline Phosphatase 528 U/L (38-126); Blood Urea Nitrogen 23 mg/dl (7-17); Calcium 8.9 mg/dl (8.4-10.2); Carbon Dioxide 33 mmol/L (22-30); Chloride 100 mmol/L (98-107); Estimated Creatinine Clearance 24 ml/min; Glucose 110 mg/dl (70-99); Potassium 4.2 mmol/L (3.5-5.1); Sodium 138 mmol/L (135-145); Total Bilirubin 0.7 mg/dl (0.2-1.3); Total Protein 7.3 g/dl (6.3-8.2); eGFR 25.42
[2024-11-08] MEDS: COREG PO ×2 (08:28→08:43)
[2024-11-08] MEDS: LOW STRENGTH ASPIRIN 81 MG PO (08:28)
[2024-11-08] MEDS: HEPARIN SC ×2 (08:28→08:43)
[2024-11-08] MEDS: PLAVIX 75 MG PO (08:28)
[2024-11-08] MEDS: VISBIOME 1 CAP PO (08:28)
[2024-11-08] MEDS: NOVOLOG FLEXPEN-LOW RESISTANCE SC ×2 (08:29→12:11)
[2024-11-08] MEDS: NOVOLOG FLEXPEN SC ×3 (08:34→09:57)
[2024-11-08] MEDS: HYDROPHOR 1 APPLIC TOPICAL (08:34)
[2024-11-08] MEDS: BUMEX PO ×2 (08:35→08:43)
[2024-11-08] MEDS: ROXICODONE 2.5 MG PO (08:36)
[2024-11-08] MEDS: MUCINEX 600 MG PO (08:41)
--- NOTE | 2024-11-08 08:49 | PN.CDI ---
CDI
- -
CDI:
Physician Documentation Request
Admit Date: 10/18/24 13:36
Dear Doctor Gunnar /Resident,
Please review the following and provide your response in the progress notes.
Clinical Indicators:
Pt admitted with Acute on Chronic HFpEF/ Diabetic foot ulcer /ESRD
Documented per [facility]OCN note 11/04,' Patient has linear superficial pink open area on her coccyx creases suspect from moisture and pressure (stage 2). Skin appeared very fragile...Sacral shaped silicone border ...'
Progress note 11/07,' New stage 1 sacral wound - clean, dressing dry and intact...'
Physician documentation of the type and location of wounds is required for compliant documentation. Based on the above clinical findings and your assessment, please provide the following in your progress note:
1. Location of the ulcer/wound, including laterality.
2. Type (etiology) of ulcer/wound:
- Pressure (decubitus) ulcer
- Non-pressure ulcer
- Other
Use of terms such as suspected, likely, concern for, or probable (associated with a specific diagnosis that is being evaluated, monitored, or treated as if it exists) are acceptable and can be coded in the inpatient setting, when documented at the
time of discharge.
Thank you,
Lissett Clark RN
CDI Specialist
[place] [employer]
Please use your independent medical judgment in providing your response.
*Source: National Pressure Ulcer Advisory Panel (NPUAP)
--- NOTE | 2024-11-08 08:53 | PN.CDI ---
CDI
- -
CDI:
Physician Documentation Request
Admit Date: 10/18/24 13:36
Dear Doctor Gunnar /Resident ,
Please review the following and provide your response in the progress notes.
Clinical Indicators:
Pt admitted with Acute on Chronic HFpEF/ Diabetic foot ulcer /ESRD
Progress note 11/03, ' Persistent Productive Cough persistent cough since 10/22, productive of sputum -- continued despite Mucinex & improvement in fluid status w/ Dialysis concern for aspiration -- VSE shows silent aspiration of thin liquid --
recommending ENT consult for vocal fold integrity given dysphonia... productive sputum is yellow/thick, suspicious for bronchitis w/ physical exam findings and new rising leukocytosisc/w doxycycline...'
Update note 11/04,' My concern is probably progression of her respiratory issues including either aspiration pneumonitis or pneumonia to elevate the white count. Get a chest x-ray today. Continue with ceftriaxone and doxycycline for now....'
Progress notes 11/06 & 11/07, ' Sepsis Secondary to UTI vs. Bronchitis vs. yeast infection vs. less likely skin/soft tissue Currently on doxycycline, ceftriaxone and Diflucan...Bronchitis, possibly secondary to aspiratiopersistent cough since 10/22,
productive of sputum -- continued despite Mucinex & improvement in fluid status w/ Dialysiconcern for aspiration -- VSE shows silent aspiration of thin liquid.....'
Please provide a diagnosis for the above findings /treatment :
Aspiration Pneumonitis
Aspiration Bronchitis
Acute Bronchitis only
Other ( please specify)
Use of terms such as suspected, likely, concern for, or probable (associated with a specific diagnosis that is being evaluated, monitored, or treated as if it exists) are acceptable and can be coded in the inpatient setting, when documented at the
time of discharge.
Thank you,
Lissett Clark RN
CDI Specialist
[place] [employer]
Please use your independent medical judgment in providing your response.
--- NOTE | 2024-11-08 09:32 | W.PN.HOSP.TC ---
Addendum entered and electronically signed by Klever Maher MD 11/09/24 09:59:
Acute Bronchitis
Stage 2 pressure ulcer coccyx
Addendum entered and electronically signed by Klevre Maher MD 11/09/24 00:36:
Attending Addendum-
I saw and evaluated the patient. I reviewed the resident�s note and agree with findings and plan as documented in the resident�s note. Sub: ready to start rehab but feels mildly apprehensive. No new complaints. Has phantom pain. Full 12 point ROS
reviewed and negative except as documented Exam: Vitals reviewed in chart GEN-NAD heart RRR lungs crackles at bases abd soft right BKA bandaged stump
Plan:
#Sepsis
yeast infection vs. Bronchitis
- repeat flu/covid negative
- repeat UA showing LE, mod bacteria, many yeast
- complete Diflucan x3d -- leukocytosis improving
- complete 7 day course of doxy on DC
#Nonhealing R Dorsal Foot Wound
- s/p right BKA on 10/28
- c/w gerri wrap, pain management
- post-op pain control with Tylenol and Oxy 2.5mg q4prn
- f/u vasc as OP
#Acute Exacerbation of HFpEF
- resolved
- cont UF via HD
- was on 2L NC, intermittently requiring, more so at night -- still on 2-3L NC
- c/w Coreg, Bumex, dialysis per Nephro
#ESRD (on dialysis MWF)
#Hyperkalemia
- HD 5/5 for HD in am
- R sided tunnelled dialysis cath
- Is on Bumex POA, patient states she makes urine
#Nonischemic Myocardial Injury
#Elevated troponins (resolved)
- trops peaked
- Echo this admission with worsening RV function compared to December 2023
- Pt refusing heart cath -- Nuclear stress test -- no perfusion defect seen -- resolution of cp -- now stable
#New stage 1 sacral wound - clean, dressing dry and intact
#Multiple acute on chronic non-healing ulcers of various stages
#R heel with blistering and suspected stage 3 Pressure Injury
- wound care following, c/w dressings and ointment
#Pica Disorder
#H/o Depression
- patient endorses a compulsion to eat matches. She states she has been doing so since she was young, and that during times of stress she may consume as many as 100 matches per day.
- Matches contain potassium chlorate, sulfur, glue, red phosphorus, ammonium phosphate and paraffin, all of which are at the very least nephrotoxic
- Psych consulted; nephro aware.
- Psych rec. antidepressants but patient not receptive to the idea at this time
#Anemia, likely secondary to chronic disease and ESRD
- hgb at baseline, no signs of active bleeding
- given one dose EPO
- transfuse to keep hgb >7
#IDDM Type I
- h/o of poorly controlled Type I DM, prior A1Cs seem to be around 9-11% -- repeat A1C% this admission 9.0%
- c/w 3U long acting QHS and 2U AC, POC glucose checks
- c/w statin
#H/o R metatarsal amputation
#H/o osteomyelitis
#h/o CVA w/o residual deficit - c/w aspirin/plavix
#h/o Paroxysmal SVT
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
#chronic hearing loss, secondary to diabetic neuropathy
Regular Diet
DVT Ppx: Heparin SC
Code Status: Full Code
Dispo DC to [facility]
Time spent coordinating care, DC planning, review of DC plan of care with resident, transition of care, review of records, med rec/scripts sent electronically, consults, notes, d/w consultants, nursing, family, and CM� 32 mins
Original Note:
Today's Communication/Plan
-
Check bed availability at [facility]
Discharge on doxycycline for 7 days
Assessment / Plan
Assessment / Plan
Impression
Shea is for 49 year old female, presenting with extreme fatigue s/p Dialysis. Presented with confusion and lethargy and had large right foot dorsal ulcer. She was also septic suspected to be secondary to bronchitis, urinary tract infection and
vulvovaginal candidiasis. On presentation she had hyperkalemia, leukocytosis and low-grade fevers. Started on ceftriaxone, doxycycline and 3-day course of Diflucan. Patient becoming more conversant and more oriented. Right foot below-knee
amputation was done which is healing well and awaiting [facility].
Assessment/Plan
Sepsis
Secondary to UTI vs. Acute Bronchitis vs. yeast infection vs. less likely skin/soft tissue
Currently on doxycycline, ceftriaxone and Diflucan
Completed 3 days of Diflucan
Doxycycline day 6 and ceftriaxone day 5 complete 7-day course
Elbow, sacral, breast wounds clean dry intact/healing
repeat flu/covid negative
UA showing LE, mod bacteria, many yeast-UA has many epithelial cells
#Pyuria/Bacteriuria
UA + for LE, wbcs, bacteria, rbcs, yeast. Rflex culture showing possible contamination.
Completed 3 days of Diflucan today
Complete 7 days of doxycycline and ceftriaxone
Persistent Productive Cough
# Acute Bronchitis, possibly secondary to aspiration
Persistent cough since 10/22, productive of sputum -- continued despite Mucinex & improvement in fluid status w/ Dialysis
Concern for aspiration -- VSE shows silent aspiration of thin liquid -- recommending OP ENT consult for vocal fold integrity given dysphonia -- pt continues to drink thin liquids
repeat CXR 11/04/2024 Mild pulmonary edema. No significant pleural effusion on either side.
Pt refusing mucinex and antihistamines for post nasal drip. Agreeable to chest PT/acapella
TLC trending down in response to antibiotics
Complete 7-day course with ceftriaxone and doxycycline
#R BKA
Complains of some phantom limb pain, otherwise feels well
- c/w gerri wrap, pain management
Awaiting bed at [facility]
Bed availabletodY-CAN DISCHARGE ON DOXYCYCLINE FOR 7 DAYS
#Acute Exacerbation of HFpEF
Last Echo 12/2023 showing EF 65-70%, multivalvular disease, elevated PASP 60-65mmHg and Stage II diastolic dysfunction
repeat Echo showing 75%EF, flattening of septum consistent w/ elevated RV volume, moderate , Mod. AR, Mod. TR. PASP decreased to 30-35mmHg. RV function is worse on today's echo when compared to prior 12/2023.
clinical signs of acute on chronic volume overload
was on 2L NC, intermittently requiring, more so at night -- still on 2-3L NC
c/w Coreg, Bumex, dialysis per Nephro
# Other medical conditions
#ESRD (on dialysis MWF)-dialysis done Yesterday
- R sided tunnelled dialysis cath. last received 10/18/2024
- Is on Bumex POA, patient states she makes urine
- c/w dialysis MWF per nephro
#Nonischemic Myocardial Injury
#Elevated troponins (resolved)
- chest pain and pressure, troponinemia, ECG showing sinus rhythm with PACs
- trops peaked
- Echo this admission with worsening RV function compared to December 2023
- Pt refused heart cath -- Nuclear stress test -- no perfusion defect seen -- resolution of cp -- now stable
#Multiple acute on chronic non-healing ulcers of various stages
#Pica Disorder
#H/o Depression
patient endorses a compulsion to eat matches. She states she has been doing so since she was young, and that during times of stress she may consume as many as 100 matches per day.
Matches contain potassium chlorate, sulfur, glue, red phosphorus, ammonium phosphate and paraffin, all of which are at the very least nephrotoxic
Psych rec. antidepressants but patient not receptive to the idea at this time
#Anemia, likely secondary to chronic disease and ESRD
- hgb at baseline, no signs of active bleeding
- given one dose EPO
- transfuse to keep hgb >7
#IDDM Type I (correction, further chart review reveals Type I, prior documentation by me says Type II; it is Type I).
- h/o of poorly controlled Type I DM, prior A1Cs seem to be around 9-11% -- repeat A1C% this admission 9.0%
- c/w 3U long acting QHS and 2U AC, POC glucose checks
- c/w statin
#H/o R metatarsal amputation
#H/o osteomyelitis
#h/o CVA w/o residual deficit - c/w aspirin/plavix
#h/o Paroxysmal SVT
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
#chronic hearing loss, secondary to diabetic neuropathy
#History of psoriasis
Regular Diet
DVT Ppx: Heparin SC
Code Status: Full Code
Anticipated Discharge: 24 - 48 hours
Subjective/Interval History
-
Date of Service: November 08, 2024
Patient feels verry tired after the dialysis she had yesterday
Also she seems very nervous about going to the [facility]
Objective Data
-
Labs:
Laboratory Results
11/08/24
07:21
WBC 10.5
Hgb 9.6 L
Hct 31.4 L
Plt Count 379
Sodium 138
Potassium 4.2
Chloride 100
Carbon Dioxide 33 H
BUN 23 H
Creatinine 2.3 H
Glucose 110 H
Calcium 8.9
Total Bilirubin 0.7
AST 23
ALT < 10
Alkaline Phosphatase 528 H
Vital Signs:
Vital Signs
Temp Pulse Resp BP Pulse Ox
98.4 F 113 16 123/51 96
11/08/24 07:30 11/08/24 07:30 11/08/24 07:30 11/08/24 07:30 11/08/24 07:30
I&O
11/07/24 11/08/24 11/09/24
06:59 06:59 06:59
Intake Total 720 / 720 600 / 600
Output Total 0 / 0
Balance 720 / 720 600 / 600
Review of Systems
-
All other systems: Reviewed and negative
Physical Exam
-
General: Comfortable, Conversant and Appears Chronically Ill
HEENT: Normocephalic, Nose Appears Normal and Ears Appear Normal
Respiratory: Decreased Breath Sounds
Cardiac: Regular Rhythm and Tachycardic
GI: Soft, Nontender and Normal Bowel Sounds
Musculoskeletal: No Clubbing and Other (Right BKA, wound healing well)
Skin: Warm, Dry and Other (Wound on coccyx, superficial pink open area on her coccyx creases)
Neuro: Awake and Oriented
Psych: Calm and Anxious (Anxious about going to [facility])
[2024-11-08] MEDS: ROCEPHIN 1000 MG IV (10:19)
[2024-11-08] MEDS: STERILE WATER FOR INJECTION 10 ML IV (10:19)
--- NOTE | 2024-11-08 11:54 | CM ---
Reviewed the chart notes and spoke with the patient at the bedside. CM spoke with Joanne Mendoza. Bed available after 3pm today. CM continues to be available to patient/family and is monitoring medical plan for needs at discharge.
Plan: [facility] today
Call report to: [phone]
Fax report to: [phone]
Medical necessity and transport forms on chart.
[2024-11-08 12:01] LABS: Glucose - Point of Care 100 mg/dl (70-99)
[2024-11-08] MEDS: NOVOLOG FLEXPEN 2 UNITS SC (13:15)
--- NOTE | 2024-11-08 14:24 | W.DCSUMMARY ---
Addendum entered and electronically signed by Klever Maher MD 11/09/24 00:37:
Read, reviewed, and agree. See same day progress note for additional details.
Yuri Maher MD
Original Note:
Documented by User: Earl Christina MD, Resident 11/08/24 15:02
Discharge Summary
Discharge Data
Date of Admission: 10/18/24
Date of Discharge: 11/08/24
Total time spent discharging patient (in min): >30m
-
Pending Results: No
Hospital Course
Discharging Physician : Dr. Rai, Dr. Maher
Disposition : Acute Rehab
Primary care physician : Unknown
Principal Discharge diagnosis : Sepsis, Bronchitis, UTI, Yeast Infection, Right BKA, Acute Exacerbation of HFpEF, Nonischemic Myocardial Injury
Chronic Discharge diagnosis : ESRD, Pica Disorder, T1DM, Depression, Anemia
Hospital Course :
Shea is for 49 year old female, presenting with extreme fatigue s/p Dialysis. Presented with confusion and lethargy and had large right foot dorsal ulcer. She was also septic suspected to be secondary to bronchitis, urinary tract infection and
vulvovaginal candidiasis. On presentation she had hyperkalemia, leukocytosis and low-grade fevers. Right foot below-knee amputation was done which is healing well and awaiting [facility].
#Sepsis
- She remained hemodynamically stable and did not need pressure support
- Blood cultures were drawn which did not show any growth
- Multiple possible sources investigated for fevers/rising white count
- secondary to UTI vs. Acute Bronchitis vs. yeast infection -- cause not immediately evident
- Elbow, sacral, breast wounds clean dry intact/healing -- not deemed to be an active source of infection
- repeat flu/covid negative
- She was treated with doxycycline for her bronchitis (cough, ronchi), Ceftriaxone for her UTI (LE, bacteria), and Diflucan for her yeast infection (yeast in UA)
- She completed a 3 day course of Diflucan
- Doxycycline day 6 and ceftriaxone day 5; to complete 7-day course of both
#Pyuria/Bacteriuria
- UA + for LE, wbcs, bacteria, rbcs, yeast. Reflex culture showing possible contamination.
- will complete a 7 day course of Ceftriaxone as above
#Persistent Productive Cough
#Acute Bronchitis, possibly secondary to aspiration
- Persistent cough since 10/22, productive of sputum -- continued despite Mucinex & improvement in fluid status w/ Dialysis
- Concern for aspiration -- VSE shows silent aspiration of thin liquid -- recommending OP ENT consult for vocal fold integrity given dysphonia
- Serial CXRs show no progressive effusions or worsening cardiopulmonary findings -- no evidence for Pneumonia
- To complete a -day course with ceftriaxone and doxycycline
#Right Sided BKA
- Given significant h/o PAD, multiple stents in the R leg, non-healing ulcers with gangrene and multiple significant medical comorbidities, the shared decision was made to pursue BKA of the patient's right leg
- Post amputation she complains of some phantom limb pain
- Post op pain was managed with oral oxycodone/tylenol
- Stump remained wrapped; surgical site was examined, found to be clean, dry, intact, w/o signs of infection/poor healing
- Patient remained stable until bed was found at [facility], after which time she was discharged
#Acute Exacerbation of HFpEF
- Last Echo 12/2023 showing EF 65-70%, multivalvular disease, elevated PASP 60-65mmHg and Stage II diastolic dysfunction
- was on 2L NC, intermittently requiring, more so at night; not on O2 at baseline
- Given persistent signs of fluid overload and supplemental O2 requirement, a repeat Echo was done as part of a cardiac workup
- Repeat Echo showing 75%EF, flattening of septum consistent w/ elevated RV volume, moderate , Mod. AR, Mod. TR. PASP decreased to 30-35mmHg. RV function is worse, when compared to prior 12/2023.
- She was seen by cardiology and evaluated as below
- She was continued on her Coreg and Bumex
- She was continued on scheduled dialysis sessions and with extra sessions intermittently for extra fluid removal
#ESRD (on dialysis MWF)
- R sided tunnelled dialysis cath. last received 10/18/2024
- Is on Bumex POA, patient states she makes urine
- c/w dialysis MWF per nephro with ultrafiltration at their discretion
#Nonischemic Myocardial Injury
#Elevated Troponin
- During her stay she complained of chest pain and pressure, was found to have elevated troponins, ECG showing sinus rhythm with PACs
- No overt signs of NSTEMI/STEMI
- Echo this admission with worsening RV function compared to December 2023
- Cardiology was consulted to evaluate
- She refused heart cath, but was agreeable to Nuclear stress test -- no perfusion defect seen -- chest pain resolved
- Possible musculoskeletal component given no overt findings on cardiac testing
#Multiple acute on chronic non-healing ulcers of various stages
#Pica Disorder
#H/o Depression
- Patient endorses a compulsion to eat matches. She states she has been doing so since she was young, and that during times of stress she may consume as many as 100 matches per day.
- Matches contain potassium chlorate, sulfur, glue, red phosphorus, ammonium phosphate and paraffin, all of which are at the very least nephrotoxic
- Psych rec. antidepressants but patient not receptive to the idea at this time
- Would recommend psychiatry follow up as outpatient
#Anemia, likely secondary to chronic disease and ESRD
- She was given one dose of EPO during her admission
- her hemoglobin remained stable, with no signs of active bleeding and no need of transfusions
#IDDM Type I
- h/o of poorly controlled Type I DM, prior A1Cs seem to be around 9-11% -- repeat A1C% this admission 9.0%
- She was continued on her home dose of insulin
- she was continued on her home statin
Important imaging findings :
CR Chest - 2 Views (10/18/24):
No acute disease of the chest. Cardiomegaly Stable.
BILATERAL LOWER EXTREMITY VENOUS DUPLEX:
No sonographic evidence for lower extremity venous thrombosis.
US Periph Venous UPPER Ext LT:
No evidence of deep venous thrombosis of the left upper extremity.
CR Foot - Right Min 3 Views:
Prior amputations at the level of the right fourth and fifth metatarsals again seen.
No radiographic findings highly suspicious for osteomyelitis.
CT Chest PE Study:
1. No evidence of central, lobar or segmental pulmonary embolism.
2. Small bilateral pleural effusions, more pronounced on the right with adjacent atelectasis. Findings of mild pulmonary edema.
3. Cardiomegaly. The right dual-lumen central venous catheter tip terminates in the inferior right atrium with the second tip terminating in the inferior vena cava.
CR Chest - 2 Views (11/04/2024):
1. Mild pulmonary edema.
2. No significant pleural effusion on either side.
Echocardiography Report (10/20/2024):
Left ventricle is small in size with mild concentric left ventricular
hypertrophy.
Hyperdynamic left ventricular systolic function. LVEF 75%.
Likely elevated LV filling pressures.
Enlarged right ventricle with reduced systolic function. Septal flattening
consistent with elevated RV volume/pressure overload.
Moderate aortic stenosis (44/28 mmHg, 1.1 cm2 by continuity equation,
planimetry 1.45 cm2).
Moderate aortic regurgitation.
Mild tricuspid regurgitation. PASP 30-35 mmHg.
Nuclear lexiscan Stress Test:
The Stress ECG is Negative for Ischemia (converted to NSR).
Arrhythmia: No significant arrhythmias noted.
The patient experienced: Shortness of Breath - Abdominal cramping.
Normal blood pressure response to exercise.
Clinical reason for end of the test: End of Lexiscan protocol.
Steps taken to resolve symptoms experienced during study: aminophylline 75mg and caffeine.
Procedure findings :
Right lower extremity amputation below the knee:
Shea Kent was correctly identified and placed supine on the operating table. After adequate induction of anesthesia the right leg was prepped and draped in the usual sterile fashion. A timeout procedure was performed with the nursing
and anesthesia staff confirming the patient's identity as well as the nature and laterality of the procedure. A transverse incision was made approximately 1 hands-breadth below the tibial tuberosity and carried medially and laterally to the fdc
points on the calf. The incision was then turned along the long axis of the calf and carried down towards the ankle to create the posterior flap. Electrocautery was used on the subcutaneous tissue and muscle of the anterior and lateral tissue. The
anterior tibial artery and vein were identified and then ligated and divided between ties. The tibia and fibula were each circumferentially exposed. A periosteal elevator was used on each to elevate the periosteum more proximally. The tibia was then
divided with a saw. The anterior surface was beveled and smoothed with the saw and a rasp. The fibula was then divided more proximally than the tibia and all edges were smoothed with the assistance of a rasp. The amputation was then completed along
the posterior flap. The leg was then passed off to the back table to be sent to pathology. Hemostasis was achieved along the posterior flap using a combination of electrocautery and interrupted silk suture ligatures. Once hemostasis was achieved the
wound was irrigated with warm saline solution. The wound was then closed in multiple layers. Sterile dressings were applied.
Discharge Plan
-
Patient Disposition: Acute Rehab Facility
Discharge Diagnosis/Procedures: Osteomyelitis of right foot s/p R BKA, Uncontrolled diabetes , ESRD on HD
Condition: Fair
Diet: 2 Gram Sodium and Diabetic, Carb Controlled
Activity: As tolerated and No strenuous activity
Driving Restrictions: As prior to admission
Bathing Restrictions: OK to Shower
Activity Restrictions/Additional Instructions:
Wound Care Instructions
Gentle Emir R BKA stump, rewrap daily (gauze prn drainage).
R BKA stump protector while out of bed.
offloading heel boot
sacral/coccyx crease-clean with saline or soap and water, silicone border foam, change q 2 days and prn loosened dressing. If foam ineffective, apply zinc barrier ointment TID instead.
R knee-clean with saline, silicone border foam, change q 3 days and prn loosened dressing.
L breast and upper abdomen: clean with saline, Silvadene, abd pad daily
elbows: skin prep and adhesive foams change q 2-3 days and prn soilage.
Air mattress
Turning schedule
Pressure redistributing chair cushion (i.e. Air chair cushion).
Follow up with vascular surgeon.
Follow up with [employer]
Referrals:
Earl Christina MD, Resident [Family Practice Resident Year1] - in three to four weeks ([facility])
UNKNOWN - PT NOT,INTERVIEWE [Family Provider] -
Ana Cristina Allan CRNP [Specified Professional Personl] - 11/14/24 9:30 am
Prescriptions:
New
doxycycline hyclate 100 mg Capsule
100 mg PO Q12 7 Days Qty: 14 0RF
guaifenesin 600 mg Tablet Extended Release 12hr
600 mg PO Q12 Qty: 30 0RF
oxycodone 5 mg Tablet
2.5 mg PO Q4HPRN PRN (Reason: moderate pain) 3 Days Qty: 6 0RF
Continued
aspirin 81 mg Tablet,Delayed Release (Dr/Ec)
81 mg PO DAILY Qty: 30 0RF
ergocalciferol (vitamin D2) 1,250 mcg (50,000 unit) capsule
1,250 mcg PO HANSON
Visbiome 112.5 billion cell Capsule
1 cap PO DAILY
acetaminophen [Tylenol] 325 mg Tablet
650 mg PO Q6HPRN PRN (Reason: mild pain)
loperamide 2 mg Tablet
2 mg PO DAILYPRN PRN (Reason: diarrhea)
insulin aspart U-100 [Novolog FlexPen U-100 Insulin] 100 unit/mL (3 mL) Insulin Pen
1 sliding scale dose SC TIDPRN PRN (Reason: high blood sugar)
insulin aspart U-100 [Novolog FlexPen U-100 Insulin] 100 unit/mL (3 mL) Insulin Pen
2 unit SC AC Qty: 5 1RF
insulin glargine [Lantus Solostar U-100 Insulin] 100 unit/mL (3 mL) Insulin Pen
3 unit SC HS Qty: 5 1RF
atorvastatin 40 mg tablet
80 mg PO QPM Qty: 30 0RF
clopidogrel 75 mg Tablet
75 mg PO DAILY Qty: 30 7RF
carvedilol [Coreg] 3.125 mg Tablet
3.125 mg PO BID Qty: 60 0RF
bumetanide 2 mg Tablet
2 mg PO DIRECTED
Rx Instructions:
take on non dialysis days
Discharge Orders:
Discharge Patient (As Directed); Ordered 11/08/24
Ordered By: Arnulfo Rai
Discharge Date and Time
Discharge Date/Time: 11/08/24 16:26
Print Language: TONGAN

Documented by User: Arnulfo Rai MD, Resident 11/08/24 15:12
Discharge Summary
Discharge Data
Date of Admission: 10/18/24
Date of Discharge: 11/08/24
Hospital Course
Discharging Physician : Dr. Vazquez, Dr. Maher
Disposition : Acute Rehab
Primary care physician : Unknown
Principal Discharge diagnosis : Sepsis, Bronchitis, UTI, Yeast Infection, Right BKA, Acute Exacerbation of HFpEF, Nonischemic Myocardial Injury
Chronic Discharge diagnosis : ESRD, Pica Disorder, T1DM, Depression, Anemia
Hospital Course :
Shea is for 49 year old female, presenting with extreme fatigue s/p Dialysis. Presented with confusion and lethargy and had large right foot dorsal ulcer. She was also septic suspected to be secondary to bronchitis, urinary tract infection and
vulvovaginal candidiasis. On presentation she had hyperkalemia, leukocytosis and low-grade fevers. Right foot below-knee amputation was done which is healing well and awaiting [facility].
#Sepsis
- She remained hemodynamically stable and did not need pressure support
- Blood cultures were drawn which did not show any growth
- Multiple possible sources investigated for fevers/rising white count
- secondary to UTI vs. Acute Bronchitis vs. yeast infection -- cause not immediately evident
- Elbow, sacral, breast wounds clean dry intact/healing -- not deemed to be an active source of infection
- repeat flu/covid negative
- She was treated with doxycycline for her bronchitis (cough, ronchi), Ceftriaxone for her UTI (LE, bacteria), and Diflucan for her yeast infection (yeast in UA)
- She completed a 3 day course of Diflucan
- Doxycycline day 6 and ceftriaxone day 5; to complete 7-day course of both
#Pyuria/Bacteriuria
- UA + for LE, wbcs, bacteria, rbcs, yeast. Reflex culture showing possible contamination.
- will complete a 7 day course of Ceftriaxone as above
#Persistent Productive Cough
#Acute Bronchitis, possibly secondary to aspiration
- Persistent cough since 10/22, productive of sputum -- continued despite Mucinex & improvement in fluid status w/ Dialysis
- Concern for aspiration -- VSE shows silent aspiration of thin liquid -- recommending OP ENT consult for vocal fold integrity given dysphonia
- Serial CXRs show no progressive effusions or worsening cardiopulmonary findings -- no evidence for Pneumonia
- To complete a -day course with ceftriaxone and doxycycline
#Right Sided BKA
- Given significant h/o PAD, multiple stents in the R leg, non-healing ulcers with gangrene and multiple significant medical comorbidities, the shared decision was made to pursue BKA of the patient's right leg
- Post amputation she complains of some phantom limb pain
- Post op pain was managed with oral oxycodone/tylenol
- Stump remained wrapped; surgical site was examined, found to be clean, dry, intact, w/o signs of infection/poor healing
- Patient remained stable until bed was found at [facility], after which time she was discharged
#Acute Exacerbation of HFpEF
- Last Echo 12/2023 showing EF 65-70%, multivalvular disease, elevated PASP 60-65mmHg and Stage II diastolic dysfunction
- was on 2L NC, intermittently requiring, more so at night; not on O2 at baseline
- Given persistent signs of fluid overload and supplemental O2 requirement, a repeat Echo was done as part of a cardiac workup
- Repeat Echo showing 75%EF, flattening of septum consistent w/ elevated RV volume, moderate , Mod. AR, Mod. TR. PASP decreased to 30-35mmHg. RV function is worse, when compared to prior 12/2023.
- She was seen by cardiology and evaluated as below
- She was continued on her Coreg and Bumex
- She was continued on scheduled dialysis sessions and with extra sessions intermittently for extra fluid removal
#ESRD (on dialysis MWF)
- R sided tunnelled dialysis cath. last received 10/18/2024
- Is on Bumex POA, patient states she makes urine
- c/w dialysis MWF per nephro with ultrafiltration at their discretion
#Nonischemic Myocardial Injury
#Elevated Troponin
- During her stay she complained of chest pain and pressure, was found to have elevated troponins, ECG showing sinus rhythm with PACs
- No overt signs of NSTEMI/STEMI
- Echo this admission with worsening RV function compared to December 2023
- Cardiology was consulted to evaluate
- She refused heart cath, but was agreeable to Nuclear stress test -- no perfusion defect seen -- chest pain resolved
- Possible musculoskeletal component given no overt findings on cardiac testing
#Multiple acute on chronic non-healing ulcers of various stages
#Pica Disorder
#H/o Depression
- Patient endorses a compulsion to eat matches. She states she has been doing so since she was young, and that during times of stress she may consume as many as 100 matches per day.
- Matches contain potassium chlorate, sulfur, glue, red phosphorus, ammonium phosphate and paraffin, all of which are at the very least nephrotoxic
- Psych rec. antidepressants but patient not receptive to the idea at this time
- Would recommend psychiatry follow up as outpatient
#Anemia, likely secondary to chronic disease and ESRD
- She was given one dose of EPO during her admission
- her hemoglobin remained stable, with no signs of active bleeding and no need of transfusions
#IDDM Type I
- h/o of poorly controlled Type I DM, prior A1Cs seem to be around 9-11% -- repeat A1C% this admission 9.0%
- She was continued on her home dose of insulin
- she was continued on her home statin
Important imaging findings :
CR Chest - 2 Views (10/18/24):
No acute disease of the chest. Cardiomegaly Stable.
BILATERAL LOWER EXTREMITY VENOUS DUPLEX:
No sonographic evidence for lower extremity venous thrombosis.
US Periph Venous UPPER Ext LT:
No evidence of deep venous thrombosis of the left upper extremity.
CR Foot - Right Min 3 Views:
Prior amputations at the level of the right fourth and fifth metatarsals again seen.
No radiographic findings highly suspicious for osteomyelitis.
CT Chest PE Study:
1. No evidence of central, lobar or segmental pulmonary embolism.
2. Small bilateral pleural effusions, more pronounced on the right with adjacent atelectasis. Findings of mild pulmonary edema.
3. Cardiomegaly. The right dual-lumen central venous catheter tip terminates in the inferior right atrium with the second tip terminating in the inferior vena cava.
CR Chest - 2 Views (11/04/2024):
1. Mild pulmonary edema.
2. No significant pleural effusion on either side.
Echocardiography Report (10/20/2024):
Left ventricle is small in size with mild concentric left ventricular
hypertrophy.
Hyperdynamic left ventricular systolic function. LVEF 75%.
Likely elevated LV filling pressures.
Enlarged right ventricle with reduced systolic function. Septal flattening
consistent with elevated RV volume/pressure overload.
Moderate aortic stenosis (44/28 mmHg, 1.1 cm2 by continuity equation,
planimetry 1.45 cm2).
Moderate aortic regurgitation.
Mild tricuspid regurgitation. PASP 30-35 mmHg.
Nuclear lexiscan Stress Test:
The Stress ECG is Negative for Ischemia (converted to NSR).
Arrhythmia: No significant arrhythmias noted.
The patient experienced: Shortness of Breath - Abdominal cramping.
Normal blood pressure response to exercise.
Clinical reason for end of the test: End of Lexiscan protocol.
Steps taken to resolve symptoms experienced during study: aminophylline 75mg and caffeine.
Procedure findings :
Right lower extremity amputation below the knee:
Shea Kent was correctly identified and placed supine on the operating table. After adequate induction of anesthesia the right leg was prepped and draped in the usual sterile fashion. A timeout procedure was performed with the nursing
and anesthesia staff confirming the patient's identity as well as the nature and laterality of the procedure. A transverse incision was made approximately 1 hands-breadth below the tibial tuberosity and carried medially and laterally to the fdc
points on the calf. The incision was then turned along the long axis of the calf and carried down towards the ankle to create the posterior flap. Electrocautery was used on the subcutaneous tissue and muscle of the anterior and lateral tissue. The
anterior tibial artery and vein were identified and then ligated and divided between ties. The tibia and fibula were each circumferentially exposed. A periosteal elevator was used on each to elevate the periosteum more proximally. The tibia was then
divided with a saw. The anterior surface was beveled and smoothed with the saw and a rasp. The fibula was then divided more proximally than the tibia and all edges were smoothed with the assistance of a rasp. The amputation was then completed along
the posterior flap. The leg was then passed off to the back table to be sent to pathology. Hemostasis was achieved along the posterior flap using a combination of electrocautery and interrupted silk suture ligatures. Once hemostasis was achieved the
wound was irrigated with warm saline solution. The wound was then closed in multiple layers. Sterile dressings were applied.
Discharge Plan
-
Patient Disposition: Acute Rehab Facility
Discharge Diagnosis/Procedures: Osteomyelitis of right foot s/p R BKA, Uncontrolled diabetes , ESRD on HD
Condition: Fair
Diet: 2 Gram Sodium and Diabetic, Carb Controlled
Activity: As tolerated and No strenuous activity
Driving Restrictions: As prior to admission
Bathing Restrictions: OK to Shower
Activity Restrictions/Additional Instructions:
Wound Care Instructions
Gentle Emir R BKA stump, rewrap daily (gauze prn drainage).
R BKA stump protector while out of bed.
offloading heel boot
sacral/coccyx crease-clean with saline or soap and water, silicone border foam, change q 2 days and prn loosened dressing. If foam ineffective, apply zinc barrier ointment TID instead.
R knee-clean with saline, silicone border foam, change q 3 days and prn loosened dressing.
L breast and upper abdomen: clean with saline, Silvadene, abd pad daily
elbows: skin prep and adhesive foams change q 2-3 days and prn soilage.
Air mattress
Turning schedule
Pressure redistributing chair cushion (i.e. Air chair cushion).
Follow up with vascular surgeon.
Follow up with [employer]
Referrals:
Earl Christina MD, Resident [Family Practice Resident Year1] - in three to four weeks (Upon discharge from [facility])
UNKNOWN - PT NOT,INTERVIEWE [Family Provider] -
Ana Cristina Allan CRNP [Specified Professional Personl] - 11/14/24 9:30 am
Prescriptions:
New
doxycycline hyclate 100 mg Capsule
100 mg PO Q12 7 Days Qty: 14 0RF
guaifenesin 600 mg Tablet Extended Release 12hr
600 mg PO Q12 Qty: 30 0RF
oxycodone 5 mg Tablet
2.5 mg PO Q4HPRN PRN (Reason: moderate pain) 3 Days Qty: 6 0RF
Continued
aspirin 81 mg Tablet,Delayed Release (Dr/Ec)
81 mg PO DAILY Qty: 30 0RF
ergocalciferol (vitamin D2) 1,250 mcg (50,000 unit) capsule
1,250 mcg PO HANSON
Visbiome 112.5 billion cell Capsule
1 cap PO DAILY
acetaminophen [Tylenol] 325 mg Tablet
650 mg PO Q6HPRN PRN (Reason: mild pain)
loperamide 2 mg Tablet
2 mg PO DAILYPRN PRN (Reason: diarrhea)
insulin aspart U-100 [Novolog FlexPen U-100 Insulin] 100 unit/mL (3 mL) Insulin Pen
1 sliding scale dose SC TIDPRN PRN (Reason: high blood sugar)
insulin aspart U-100 [Novolog FlexPen U-100 Insulin] 100 unit/mL (3 mL) Insulin Pen
2 unit SC AC Qty: 5 1RF
insulin glargine [Lantus Solostar U-100 Insulin] 100 unit/mL (3 mL) Insulin Pen
3 unit SC HS Qty: 5 1RF
atorvastatin 40 mg tablet
80 mg PO QPM Qty: 30 0RF
clopidogrel 75 mg Tablet
75 mg PO DAILY Qty: 30 7RF
carvedilol [Coreg] 3.125 mg Tablet
3.125 mg PO BID Qty: 60 0RF
bumetanide 2 mg Tablet
2 mg PO DIRECTED
Rx Instructions:
take on non dialysis days
Discharge Orders:
Discharge Patient (As Directed); Ordered 11/08/24
Ordered By: Arnulfo Rai
Discharge Date and Time
Discharge Date/Time: 11/08/24 16:26
Print Language: TONGAN

Documented by User: Klever Maher MD 11/09/24 00:32
Discharge Summary
Discharge Data
Date of Admission: 10/18/24
Date of Discharge: 11/09/24
Discharge Plan
-
Patient Disposition: Acute Rehab Facility
Discharge Diagnosis/Procedures: Osteomyelitis of right foot s/p R BKA, Uncontrolled diabetes , ESRD on HD
Condition: Fair
Diet: 2 Gram Sodium and Diabetic, Carb Controlled
Activity: As tolerated and No strenuous activity
Driving Restrictions: As prior to admission
Bathing Restrictions: OK to Shower
Activity Restrictions/Additional Instructions:
Wound Care Instructions
Gentle Emir R BKA stump, rewrap daily (gauze prn drainage).
R BKA stump protector while out of bed.
offloading heel boot
sacral/coccyx crease-clean with saline or soap and water, silicone border foam, change q 2 days and prn loosened dressing. If foam ineffective, apply zinc barrier ointment TID instead.
R knee-clean with saline, silicone border foam, change q 3 days and prn loosened dressing.
L breast and upper abdomen: clean with saline, Silvadene, abd pad daily
elbows: skin prep and adhesive foams change q 2-3 days and prn soilage.
Air mattress
Turning schedule
Pressure redistributing chair cushion (i.e. Air chair cushion).
Follow up with vascular surgeon.
Follow up with [employer]
Referrals:
Earl Christina MD, Resident [Family Practice Resident Year1] - in three to four weeks ([facility]
UNKNOWN - PT NOT,INTERVIEWE [Family Provider] -
Ana Cristina Allan CRNP [Specified Professional Personl] - 11/14/24 9:30 am
Prescriptions:
New
doxycycline hyclate 100 mg Capsule
100 mg PO Q12 7 Days Qty: 14 0RF
guaifenesin 600 mg Tablet Extended Release 12hr
600 mg PO Q12 Qty: 30 0RF
oxycodone 5 mg Tablet
2.5 mg PO Q4HPRN PRN (Reason: moderate pain) 3 Days Qty: 6 0RF
Continued
aspirin 81 mg Tablet,Delayed Release (Dr/Ec)
81 mg PO DAILY Qty: 30 0RF
ergocalciferol (vitamin D2) 1,250 mcg (50,000 unit) capsule
1,250 mcg PO HANSON
Visbiome 112.5 billion cell Capsule
1 cap PO DAILY
acetaminophen [Tylenol] 325 mg Tablet
650 mg PO Q6HPRN PRN (Reason: mild pain)
loperamide 2 mg Tablet
2 mg PO DAILYPRN PRN (Reason: diarrhea)
insulin aspart U-100 [Novolog FlexPen U-100 Insulin] 100 unit/mL (3 mL) Insulin Pen
1 sliding scale dose SC TIDPRN PRN (Reason: high blood sugar)
insulin aspart U-100 [Novolog FlexPen U-100 Insulin] 100 unit/mL (3 mL) Insulin Pen
2 unit SC AC Qty: 5 1RF
insulin glargine [Lantus Solostar U-100 Insulin] 100 unit/mL (3 mL) Insulin Pen
3 unit SC HS Qty: 5 1RF
atorvastatin 40 mg tablet
80 mg PO QPM Qty: 30 0RF
clopidogrel 75 mg Tablet
75 mg PO DAILY Qty: 30 7RF
carvedilol [Coreg] 3.125 mg Tablet
3.125 mg PO BID Qty: 60 0RF
bumetanide 2 mg Tablet
2 mg PO DIRECTED
Rx Instructions:
take on non dialysis days
Discharge Orders:
Discharge Patient (As Directed); Ordered 11/08/24
Ordered By: Arnulfo Rai
Discharge Date and Time
Discharge Date/Time: 11/08/24 16:26
Print Language: TONGAN
[2024-11-08 15:44] VITALS: BP 128/60
== END 2024-11-08 16:26 | DRG 239 ==
LOC: 2 NORTH 13:36
PROVIDERS: Internal Medicine; Internal Medicine Cardiovascular Disease; Nurse Practitioner Acute Care; Nurse Practitioner Family; Registered Nurse; Specialist; Student in an Organized Health Care Education/Training Program; ADMITTING PHYSICIAN Internal Medicine; ATTENDING PHYSICIAN Family Medicine; CONSULT PHYSICIAN Internal Medicine; CONSULT PHYSICIAN Internal Medicine Infectious Disease; CONSULT PHYSICIAN Internal Medicine Nephrology; CONSULT PHYSICIAN Physical Medicine & Rehabilitation; CONSULT PHYSICIAN Student in an Organized Health Care Education/Training Program; CONSULT PHYSICIAN Surgery Vascular Surgery; EMERGENCY PHYSICIAN Student in an Organized Health Care Education/Training Program; OTHER PHYSICIAN Podiatrist Foot & Ankle Surgery; OTHER PHYSICIAN Psychiatry & Neurology Psychiatry
PROC: 5A1D70Z Performance of Urinary Filtration, Intermittent, Less than 6 Hours Per Day (ICD-10-PCS; 2024-10-19)
PROC: 3E033HZ Introduction of Radioactive Substance into Peripheral Vein, Percutaneous Approach (ICD-10-PCS; 2024-10-25)
PROC: 4A02XM4 Measurement of Cardiac Total Activity, External Approach (ICD-10-PCS; 2024-10-25)
PROC: 0BH17EZ Insertion of Endotracheal Airway into Trachea, Via Natural or Artificial Opening (ICD-10-PCS; 2024-10-28)
PROC: 5A1945Z Respiratory Ventilation, 24-96 Consecutive Hours (ICD-10-PCS; 2024-10-28)
PROC: 0Y6H0Z2 Detachment at Right Lower Leg, Mid, Open Approach (ICD-10-PCS; 2024-10-28)
PROC: 0BP1XDZ Removal of Intraluminal Device from Trachea, External Approach (ICD-10-PCS; 2024-10-30)
DX: E10.52 Type 1 diabetes mellitus with diabetic peripheral angiopathy with gangrene (principal); A41.9 Sepsis, unspecified organism; I50.33 Acute on chronic diastolic (congestive) heart failure; L89.613 Pressure ulcer of right heel, stage 3; J96.01 Acute respiratory failure with hypoxia; J69.0 Pneumonitis due to inhalation of food and vomit; N18.6 End stage renal disease; G92.8 Other toxic encephalopathy; I13.2 Hypertensive heart and chronic kidney disease with heart failure and with stage 5 chronic kidney disease, or end stage renal disease; G61.0 Guillain-Barre syndrome; I5A Non-ischemic myocardial injury (non-traumatic); L97.518 Non-pressure chronic ulcer of other part of right foot with other specified severity; I70.261 Atherosclerosis of native arteries of extremities with gangrene, right leg; M86.8X7 Other osteomyelitis, ankle and foot; N39.0 Urinary tract infection, site not specified; E10.69 Type 1 diabetes mellitus with other specified complication; E10.22 Type 1 diabetes mellitus with diabetic chronic kidney disease; E10.65 Type 1 diabetes mellitus with hyperglycemia; E78.2 Mixed hyperlipidemia; D50.9 Iron deficiency anemia, unspecified; H91.90 Unspecified hearing loss, unspecified ear; E10.621 Type 1 diabetes mellitus with foot ulcer; I70.235 Atherosclerosis of native arteries of right leg with ulceration of other part of foot; E87.6 Hypokalemia; E87.5 Hyperkalemia; D63.8 Anemia in other chronic diseases classified elsewhere; R74.01 Elevation of levels of liver transaminase levels; I08.0 Rheumatic disorders of both mitral and aortic valves; I27.29 Other secondary pulmonary hypertension; I25.10 Atherosclerotic heart disease of native coronary artery without angina pectoris; F32.A Depression, unspecified; L89.152 Pressure ulcer of sacral region, stage 2; H54.8 Legal blindness, as defined in USA; F10.91 Alcohol use, unspecified, in remission; E10.40 Type 1 diabetes mellitus with diabetic neuropathy, unspecified; F50.83 Pica in adults; G54.6 Phantom limb syndrome with pain; B37.31 Acute candidiasis of vulva and vagina; J20.9 Acute bronchitis, unspecified; Z63.6 Dependent relative needing care at home; Z63.5 Disruption of family by separation and divorce; Z79.4 Long term (current) use of insulin; Z99.2 Dependence on renal dialysis; Z86.73 Personal history of transient ischemic attack (TIA), and cerebral infarction without residual deficits; Z95.1 Presence of aortocoronary bypass graft; Z79.82 Long term (current) use of aspirin; Z79.02 Long term (current) use of antithrombotics/antiplatelets; Z91.040 Latex allergy status; Z11.52 Encounter for screening for COVID-19; Z89.422 Acquired absence of other left toe(s); Z82.49 Family history of ischemic heart disease and other diseases of the circulatory system; Z83.3 Family history of diabetes mellitus; Z84.1 Family history of disorders of kidney and ureter; Z87.891 Personal history of nicotine dependence; Z95.820 Peripheral vascular angioplasty status with implants and grafts; Z82.41 Family history of sudden cardiac death; Z68.34 Body mass index [BMI] 34.0-34.9, adult
CPT/HCPCS: 88307; 88311; 27880; 36600; 71045; 71046; 71275; 73630; 74230; 78452; 80048; 80053; 80202; 81003; 81015; 82248; 82550; 82805; 82962; 83036; 83605; 83735; 84100; 84132; 84439; 84443; 84484; 85025; 85027; 85610; 85730; 86850; 86900; 86901; 87040; 87070; 87086; 87147; 87340; 87502; 87811; 92526; 92610; 92611; 93005; 93017; 93306; 93970; 93971; 94002; 94003; 94640; 96374; 97110; 97163; 97167; 97530; 97535; 99285; A9500; G0257; J2785; P9047; Q5106; Q9967